=== PATIENT | female | born 1945 | race American Indian/Alaskan Native ===

== ENCOUNTER 2017-01-15 08:05 | Inpatient (IN) | payer MEDICARE ==
[2017-01-15] MEDS ORDERED: LASIX IV ONE (08:50)
[2017-01-15] MEDS ORDERED: LOPRESSOR IV ONE ×3 (08:53→15:05)
--- NOTE | 2017-01-15 08:58 | Emergency Department Report ---
ED Shortness of Breath HPI - General Chief Complaint: Dyspnea/Respdistress Stated Complaint: IBETH Time Seen by Provider: 01/15/17 08:42 Source: patient, EMS Mode of arrival: Stretcher Limitations: Physical Limitation - History of Present Illness Initial Comments: PATIENT BROUGHT BY EMS AFTER SHE START TO HAVE SOB, PALPITATION AND ON AND OFF CHEST PAIN. PATIENT STOPPED TAKING HER METOPROLOL YESTERDAY BECAUSE OF DIARRHEA. SHE HAD H/O TACHYCARDIA. MD Complaint: shortness of breath, chest pain -: Gradual, Last night Severity: moderate Pain Scale: 5 Consistency: intermittent Improves With: oxygen, rest Known History Of: congestive heart failure Associated Symptoms: chest pain, lower abdominal swelling, palpitations - Related Data Home Medications Medication Instructions Recorded Confirmed Last Taken Ascorbic Acid [Vitamin C] 500 mg PO DAILY 12/01/15 01/15/17 01/18/16 Mv, Min #36/Iron,Carbonyl/FA 1 mg PO DAILY 12/01/15 01/15/17 01/18/16 [Geritol Complete Tablet] [place]-3 Fatty Acids [Fish Oil] 1,200 mg PO DAILY 12/01/15 01/15/17 01/18/16 Potassium Chloride 40 meq PO QDAY 01/19/16 01/15/17 01/18/16 Ranitidine HCl [Acid Caddy/Caddie Supervisor] 150 mg PO BID 01/19/16 01/15/17 01/18/16 Valsartan [Diovan] 80 mg PO DAILY 01/19/16 01/15/17 01/18/16 Furosemide [Lasix TAB] 80 mg PO QDAY 01/15/17 01/15/17 Unknown Furosemide [Lasix] 20 mg PO QDAY 01/15/17 01/15/17 Unknown Previous Rx's Medication Instructions Recorded Last Taken Type Furosemide [Lasix TAB] 40 mg PO 0600,1800 #60 tablet 01/26/16 Unknown Rx Spironolactone [Aldactone] 25 mg PO QDAY #30 tablet 01/26/16 Unknown Rx Allergies Allergy/AdvReac Type Severity Reaction Status Date / Time Penicillins Allergy Swelling Verified 01/22/16 12:36 ED Review of Systems ROS: Stated complaint: IBETH Other details as noted in HPI Comment: All other systems reviewed and negative Constitutional: denies: fever Respiratory: cough, orthopnea, shortness of breath, SOB at rest. denies: SOB with exertion, stridor, wheezing Cardiovascular: chest pain, palpitations, dyspnea on exertion Gastrointestinal: diarrhea. denies: abdominal pain, nausea, vomiting Genitourinary: denies: urgency Neurological: denies: headache, numbness, confusion, vertigo ED Past Medical Hx - Past Medical History Previous Medical History?: Yes Hx Hypertension: Yes Hx Congestive Heart Failure: Yes Hx Diabetes: Yes Hx Deep Vein Thrombosis: Yes Hx Pulmonary Embolism: Yes Hx Arthritis: Yes Hx Asthma: Yes - Social History Smoking Status: Never Smoker Substance Use Type: None - Medications Home Medications: Home Medications Medication Instructions Recorded Confirmed Last Taken Type Ascorbic Acid [Vitamin C] 500 mg PO DAILY 12/01/15 01/15/17 01/18/16 History Mv, Min #36/Iron,Carbonyl/FA 1 mg PO DAILY 12/01/15 01/15/17 01/18/16 History [Geritol Complete Tablet] [place]-3 Fatty Acids [Fish Oil] 1,200 mg PO DAILY 12/01/15 01/15/17 01/18/16 History Potassium Chloride 40 meq PO QDAY 01/19/16 01/15/17 01/18/16 History Ranitidine HCl [Acid Caddy/Caddie Supervisor] 150 mg PO BID 01/19/16 01/15/17 01/18/16 History Valsartan [Diovan] 80 mg PO DAILY 01/19/16 01/15/17 01/18/16 History Furosemide [Lasix TAB] 40 mg PO 0600,1800 #60 tablet 01/26/16 01/15/17 Unknown Rx Spironolactone [Aldactone] 25 mg PO QDAY #30 tablet 01/26/16 01/15/17 Unknown Rx Furosemide [Lasix TAB] 80 mg PO QDAY 01/15/17 01/15/17 Unknown History Furosemide [Lasix] 20 mg PO QDAY 01/15/17 01/15/17 Unknown History ED Physical Exam - General Limitations: Physical Limitation General appearance: alert, in no apparent distress - Head Head exam: Present: normocephalic - Eye Eye exam: Present: normal appearance - Neck Neck exam: Present: normal inspection. Absent: tenderness, meningismus, lymphadenopathy - Respiratory Respiratory exam: Present: decreased breath sounds - Cardiovascular Cardiovascular Exam: Present: tachycardia - GI/Abdominal GI/Abdominal exam: Present: soft. Absent: tenderness, guarding - Extremities Exam Extremities exam: Present: pedal edema - Back Exam Back exam: Present: normal inspection - Neurological Exam Neurological exam: Present: alert, oriented X3, CN II-XII intact. Absent: motor sensory deficit - Skin Skin exam: Present: warm, dry ED Course Vital Signs 01/15/17 01/15/17 08:42 08:45 Temperature 98.6 F Pulse Rate 140 H Respiratory 20 Rate O2 Sat by Pulse 100 Oximetry ED Medical Decision Making - Lab Data Result diagrams: 01/15/17 09:03 01/15/17 09:03 - EKG Data -: EKG Interpreted by Me Rate: tachycardia - Radiology Data Radiology results: report reviewed - Medical Decision Making PATIENT WILL BE ADMITTED TO THE HOSPITALS. DISCUSS WITH DR CARROLL CARDIOLOGY AND ADVISED TO ADMIT TO THE HOSPITAL AND SHE WILL FOLLOW-UP. DISCUSS WITH DR MATOS FOR ADMISSION, HE ACCEPTED . Critical care attestation.: If time is entered above; I have spent that time in minutes in the direct care of this critically ill patient, excluding procedure time. ED Disposition Clinical Impression: Acute exacerbation of CHF (congestive heart failure) Disposition: OP ADMIT IP TO THIS HOSP Is pt being admited?: Yes Does the pt Need Aspirin: Yes Condition: Stable Referrals: PRIMARY CARE, [Referring] - 3-5 Days
--- NOTE | 2017-01-15 09:19 | XRay Report ---
Single view chest: Compared to 01/19/16. History: Dyspnea. Findings: Marked cardiomegaly with trachea midline and pulmonary venous congestion bilaterally been no growth of the right side. Suspected bilateral pleural effusion. Impression: Cardiomegaly with pulmonary venous congestion being more pronounced compared to previous study. Probable CHF.
[2017-01-15 09:37] LABS: Basophils % (Auto) 0.8 % (0.0-1.8); Hematocrit 43.5 % (30.3-42.9); Hemoglobin 14.4 gm/dl (10.1-14.3); Mean Corpuscular HGB Conc 33 % (30-34); Mean Corpuscular Hemoglobin 29 pg (28-32); Mean Corpuscular Volume 86 fl (79-97); Platelet Count 169 K/mm3 (140-440); Red Blood Count 5.04 M/mm3 (3.65-5.03); Red Cell Distribution Width 18.8 % (13.2-15.2); White Blood Count 6.1 K/mm3 (4.5-11.0)
[2017-01-15 09:46] LABS: Albumin 3.8 g/dL (3.9-5); Albumin/Globulin Ratio 1.1 %; BUN/Creatinine Ratio 26.92; Bilirubin,Total 1.3 mg/dL (0.1-1.2); Calcium 9.8 mg/dL (8.4-10.2); Potassium 5.1 mmol/L (3.6-5.0); Total Protein 7.4 g/dL (6.3-8.2)
[2017-01-15 10:40] LABS: Bilirubin,Urine NEG (Negative); Blood,Urine NEG (Negative); Ketones,Urine NEG (Negative); Leukocyte Esterase,Urine NEG (Negative); Nitrite,Urine NEG (Negative); Urobilinogen,Urine < 2.0 mg/dL (<2.0)
[2017-01-15 11:03] LABS: RBC,Urine < 1.0 /HPF (0.0-6.0); WBC,Urine < 1.0 /HPF (0.0-6.0)
[2017-01-15] MEDS: COREG PO SCH (21:52)
--- NOTE | 2017-01-15 22:26 | History and Physical Report ---
History of Present Illness Date of examination: 01/15/17 Date of admission: 01/15/17 11:28 Chief complaint: Increasing SOB Diarrhea assoc with metoprolol History of present illness: SYCUAN:Patient is a 71 y/o female with hx of HTN CHF comes in for increasing SOB and palpitations.Intermittent Chest Discomfort.Orthopnea and palpitations present.No fever /chills.No recent travel - Past Medical History Previous Medical History?: Yes Hx Hypertension: Yes Hx Congestive Heart Failure: Yes Hx Diabetes: Yes Hx Deep Vein Thrombosis: Yes Hx Pulmonary Embolism: Yes Hx Arthritis: Yes Hx Asthma: Yes - Social History Smoking Status: Never Smoker Substance Use Type: None - Medications Home Medications: Home Medications Medication Instructions Recorded Confirmed Last Taken Type Ascorbic Acid [Vitamin C] 500 mg PO DAILY 12/01/15 01/15/17 01/18/16 History Mv, Min #36/Iron,Carbonyl/FA 1 mg PO DAILY 12/01/15 01/15/17 01/18/16 History [Geritol Complete Tablet] [place]-3 Fatty Acids [Fish Oil] 1,200 mg PO DAILY 12/01/15 01/15/17 01/18/16 History Potassium Chloride 40 meq PO QDAY 01/19/16 01/15/17 01/18/16 History Ranitidine HCl [Acid Firer Kiln] 150 mg PO BID 01/19/16 01/15/17 01/18/16 History Valsartan [Diovan] 80 mg PO DAILY 01/19/16 01/15/17 01/18/16 History Furosemide [Lasix TAB] 40 mg PO 0600,1800 #60 tablet 01/26/16 01/15/17 Unknown Rx Spironolactone [Aldactone] 25 mg PO QDAY #30 tablet 01/26/16 01/15/17 Unknown Rx Furosemide [Lasix TAB] 80 mg PO QDAY 01/15/17 01/15/17 Unknown History Furosemide [Lasix] 20 mg PO QDAY 01/15/17 01/15/17 Unknown History ROS: Stated complaint: IBETH Other details as noted in HPI Comment: All other systems reviewed and negative Constitutional: denies: fever Respiratory: cough, orthopnea, shortness of breath, SOB at rest. denies: SOB with exertion, stridor, wheezing Cardiovascular: chest pain, palpitations, dyspnea on exertion Gastrointestinal: diarrhea. denies: abdominal pain, nausea, vomiting Genitourinary: denies: urgency Neurological: denies: headache, numbness, confusion, vertigo Medications and Allergies Allergies Allergy/AdvReac Type Severity Reaction Status Date / Time Penicillins Allergy Swelling Verified 01/22/16 12:36 Home Medications Medication Instructions Recorded Confirmed Last Taken Type Ascorbic Acid [Vitamin C] 500 mg PO DAILY 12/01/15 01/15/17 01/18/16 History Mv, Min #36/Iron,Carbonyl/FA 1 mg PO DAILY 12/01/15 01/15/17 01/18/16 History [Geritol Complete Tablet] [place]-3 Fatty Acids [Fish Oil] 1,200 mg PO DAILY 12/01/15 01/15/17 01/18/16 History Potassium Chloride 40 meq PO QDAY 01/19/16 01/15/17 01/18/16 History Ranitidine HCl [Acid Firer Kiln] 150 mg PO BID 01/19/16 01/15/17 01/18/16 History Valsartan [Diovan] 80 mg PO DAILY 01/19/16 01/15/17 01/18/16 History Furosemide [Lasix TAB] 40 mg PO 0600,1800 #60 tablet 01/26/16 01/15/17 Unknown Rx Spironolactone [Aldactone] 25 mg PO QDAY #30 tablet 01/26/16 01/15/17 Unknown Rx Furosemide [Lasix TAB] 80 mg PO QDAY 01/15/17 01/15/17 Unknown History Furosemide [Lasix] 20 mg PO QDAY 01/15/17 01/15/17 Unknown History Active Meds: Active Medications Carvedilol (Coreg) 25 mg PO BID ALANNA Last Admin: 01/15/17 21:52 Dose: 25 mg Exam - Physical Exam Narrative exam: Sob while at rest-uncomfortable - Constitutional Vitals: Temp Pulse Resp BP Pulse Ox 0 F L 104 H 20 92/64 98 01/15/17 20:58 01/15/17 21:52 01/15/17 20:58 01/15/17 21:52 01/15/17 20:58 General appearance: Present: no acute distress, well-nourished - EENT Eyes: Present: PERRL ENT: hearing intact, clear oral mucosa - Neck Neck: Present: supple, normal ROM - Respiratory Respiratory effort: normal Respiratory: bilateral: CTA, rales, rhonchi - Cardiovascular Rhythm: regular Heart Sounds: Present: S1 & S2. Absent: rub, click - Extremities Extremities: no ischemia, pulses symmetrical, No edema Extremity abnormal: edema Peripheral Pulses: within normal limits - Abdominal General gastrointestinal: Present: soft, non-tender, non-distended, normal bowel sounds Female genitourinary: Present: normal - Rectal Rectal Exam: deferred - Integumentary Integumentary: Present: clear, warm, dry - Musculoskeletal Musculoskeletal: gait normal, strength equal bilaterally - Psychiatric Psychiatric: appropriate mood/affect, intact judgment & insight - Neurologic Neurologic: CNII-XII intact, moves all extremities Results - Labs CBC & Chem 7: 01/16/17 08:56 01/16/17 08:56 Labs: Laboratory Last Values WBC 6.1 K/mm3 (4.5-11.0) 01/15/17 09:03 RBC 5.04 M/mm3 (3.65-5.03) H 01/15/17 09:03 Hgb 14.4 gm/dl (10.1-14.3) H 01/15/17 09:03 Hct 43.5 % (30.3-42.9) H 01/15/17 09:03 MCV 86 fl (79-97) 01/15/17 09:03 MCH 29 pg (28-32) 01/15/17 09:03 MCHC 33 % (30-34) 01/15/17 09:03 RDW 18.8 % (13.2-15.2) H 01/15/17 09:03 Plt Count 169 K/mm3 (140-440) 01/15/17 09:03 Lymph % (Auto) 7.3 % (13.4-35.0) L 01/15/17 09:03 [place] % (Auto) 14.8 % (0.0-7.3) H 01/15/17 09:03 Eos % (Auto) 4.0 % (0.0-4.3) 01/15/17 09:03 Baso % (Auto) 0.8 % (0.0-1.8) 01/15/17 09:03 Lymph # 0.4 K/mm3 (1.2-5.4) L 01/15/17 09:03 [place] # 0.9 K/mm3 (0.0-0.8) H 01/15/17 09:03 Eos # 0.2 K/mm3 (0.0-0.4) 01/15/17 09:03 Baso # 0.1 K/mm3 (0.0-0.1) 01/15/17 09:03 Seg Neutrophils % 73.1 % (40.0-70.0) H 01/15/17 09:03 Seg Neutrophils # 4.5 K/mm3 (1.8-7.7) 01/15/17 09:03 Sodium 134 mmol/L (137-145) L 01/15/17 09:03 Potassium 5.1 mmol/L (3.6-5.0) H 01/15/17 09:03 Chloride 95.0 mmol/L (98-107) L 01/15/17 09:03 Carbon Dioxide 24 mmol/L (22-30) 01/15/17 09:03 Anion Gap 20 mmol/L 01/15/17 09:03 BUN 35 mg/dL (7-17) H 01/15/17 09:03 Creatinine 1.3 mg/dL (0.7-1.2) H 01/15/17 09:03 Estimated GFR 49 ml/min 01/15/17 09:03 BUN/Creatinine Ratio 26.92 % 01/15/17 09:03 Glucose 166 mg/dL (65-100) H 01/15/17 09:03 POC Glucose 135 (70-105) H 01/15/17 22:06 Calcium 9.8 mg/dL (8.4-10.2) 01/15/17 09:03 Total Bilirubin 1.30 mg/dL (0.1-1.2) H 01/15/17 09:03 AST 22 units/L (5-40) 01/15/17 09:03 ALT 13 units/L (7-56) 01/15/17 09:03 Alkaline Phosphatase 91 units/L (35-129) 01/15/17 09:03 Troponin T 0.019 ng/mL (0.00-0.029) 01/15/17 09:03 NT-Pro-B Natriuret Pep 8400 pg/mL (0-900) H 01/15/17 09:03 Total Protein 7.4 g/dL (6.3-8.2) 01/15/17 09:03 Albumin 3.8 g/dL (3.9-5) L 01/15/17 09:03 Albumin/Globulin Ratio 1.1 % 01/15/17 09:03 Urine Color Yellow (Yellow) 01/15/17 10:16 Urine Turbidity Clear (Clear) 01/15/17 10:16 Urine pH 5.0 (5.0-7.0) 01/15/17 10:16 Ur Specific [place] 1.011 (1.003-1.030) 01/15/17 10:16 Urine Protein 30 mg/dl mg/dL (Negative) 01/15/17 10:16 Urine Glucose (UA) Neg mg/dL (Negative) 01/15/17 10:16 Urine Ketones Neg mg/dL (Negative) 01/15/17 10:16 Urine Blood Neg (Negative) 01/15/17 10:16 Urine Nitrite Neg (Negative) 01/15/17 10:16 Urine Bilirubin Neg (Negative) 01/15/17 10:16 Urine Urobilinogen < 2.0 mg/dL (<2.0) 01/15/17 10:16 Ur Leukocyte Esterase Neg (Negative) 01/15/17 10:16 Urine WBC (Auto) < 1.0 /HPF (0.0-6.0) 01/15/17 10:16 Urine RBC (Auto) < 1.0 /HPF (0.0-6.0) 01/15/17 10:16 U Epithel Cells (Auto) 7.0 /HPF (0-13.0) 01/15/17 10:16 Amorphous Crystals 2+ 01/15/17 10:16 - Imaging and Cardiology EKG: report reviewed (Tachycardia of 128/min Junctional rhythm) Chest x-ray: report reviewed (Pulmonary venous congestion) Assessment and Plan Advance Directives: Yes (Full code ) VTE prophylaxis?: Chemical Plan of care discussed with patient/family: Yes - Patient Problems (1) Acute exacerbation of CHF (congestive heart failure) Current Visit: Yes Status: Acute Qualifiers: Congestive heart failure type: combined Qualified Code(s): I50.43 - Acute on chronic combined systolic (congestive) and diastolic (congestive) heart failure Plan to address problem: IV Lasix 40 mg q12.ECHO ordered.Cardiology consulted (2) HTN (hypertension) Current Visit: Yes Status: Chronic Qualifiers: Hypertension type: essential hypertension Qualified Code(s): I10 - Essential (primary) hypertension Plan to address problem: Cont Antihypertensives (3) Junctional cardiac arrhythmia Current Visit: Yes Status: Acute Plan to address problem: cont beta blockers in form of carvedilol and defer to cardiolgy for further management (4) GERD (gastroesophageal reflux disease) Current Visit: Yes Status: Chronic Qualifiers: Esophagitis presence: without esophagitis Qualified Code(s): K21.9 - Gastro -esophageal reflux disease without esophagitis Plan to address problem: Cont Ranitidine (5) DVT prophylaxis Current Visit: Yes Status: Acute Plan to address problem: Patient on Lovenox 40 mg sq qd
[2017-01-15] MEDS ORDERED: DULCOLAX PR PRN (22:27)
[2017-01-15] MEDS ORDERED: MILK OF MAGNESIA PO PRN (22:27)
[2017-01-15] MEDS ORDERED: ZOFRAN IV PRN (22:27)
[2017-01-15] MEDS ORDERED: AMBIEN PO PRN (22:27)
[2017-01-15] MEDS ORDERED: SODIUM CHLORIDE FLUSH SYRINGE 10 ML IV PRN (22:31)
[2017-01-15 23:53] LABS: Hematocrit 41.1 % (30.3-42.9); Hemoglobin 13.4 gm/dl (10.1-14.3); Mean Corpuscular HGB Conc 33 % (30-34); Mean Corpuscular Hemoglobin 29 pg (28-32); Mean Corpuscular Volume 88 fl (79-97); Red Blood Count 4.68 M/mm3 (3.65-5.03); Red Cell Distribution Width 18.6 % (13.2-15.2); White Blood Count 5.7 K/mm3 (4.5-11.0)
[2017-01-16 00:07] LABS: Calcium 9.7 mg/dL (8.4-10.2); Chloride 95.5 mmol/L (98-107); Potassium 5.1 mmol/L (3.6-5.0)
[2017-01-16 00:34] LABS: Basophils % (Manual) 0 % (0.0-1.8); Blastocytes % (Manual) 0 %
[2017-01-16 00:35] LABS: Anisocytosis 1+; Elliptocytes 1+
[2017-01-16 00:36] LABS: Diff Status Complete; Platelet Clumps 1+
[2017-01-16 01:03] LABS: Platelet Count 114 K/mm3 (140-440)
--- NOTE | 2017-01-16 01:43 | Admit Criteria Form ---
Admission Criteria Documentation: HEART FAILURE: COMMON COMPLICATIONS Clinical Indications for Inpatient Care ([place]/check or initial the applicable condition/criteria): Ongoing inpatient care may be indicated for heart failure with 1 or more of the following (1)(2)(3)(4)(5)(6)(7)(8): [ ]I. New-onset heart failure [ ]II. Acute cardiac ischemia causing or associated with failure [ ]III. Ongoing need for care for primary condition requiring frequent therapy adjustments because of changes in cardiac function (eg, drug dosage changes for drugs that are renally metabolized) [X ]IV. Complications of heart failure, including 1 or more of the following: [ ]a) Hemodynamic instability [ ]b) Pericardial effusion [ ]c) Symptomatic pleural effusion(16) [ ]d) Hypoxemia [ ]e) Tachypnea [ X]f) Dyspnea [ ]g) Syncope [ ]h) Altered mental status [ ]i) Acute renal insufficiency that is severe (reduction of more than 50% in estimated glomerular filtration rate from baseline) or progressive (reduction of more than 25% in estimated glomerular filtration rate from baseline, with creatinine continuing to rise) [ ]j) Debilitating anasarca (eg tissue breakdown with infection, inability to void due to edema)(E) (17) [ ]k) Clinically significant metabolic abnormalities due to heart failure (e.g., new-onset metabolic acidosis) Extended stay may be needed until ALL of the following are present(1)(3)(18)(41) (55): [ ]a) Hemodynamic stability [ ]b) Stable and effective diuretic regimen established (or patient on stable dialysis regimen if in chronic renal failure) [ ]c) Volume status acceptable on oral medication [ ]d) Breathing comfortably at rest [ ]e) Saturation of arterial oxygen greater than 90% or at acceptable baseline [ ]f) Pulmonary edema absent or improved [ ]g) Peripheral or sacral edema absent or improved [ ]h) Renal function stable and manageable at a lower level of care [ ]i) Complications (e.g., pleural effusion) resolved or manageable at a lower level of care [ ]j) Patient or caregiver has received written discharge instructions or educational material addressing activity level, diet, discharge medications, follow-up appointment, weight monitoring, and what to do if symptoms worsen. (56)(57)(58) The original [facility] [employer] formerly [employer] content created by Qian Suarez has been revised. The portions of the content which have been revised are identified through the use of italic text or in bold, and Qian Suarez has neither reviewed nor approved the modified material.All other unmodified content is copyright [facility] [employer]. Please see references footnoted in the original [facility] edition 2017 Admission Criteria Met: Yes
[2017-01-16] MEDS: LASIX IV SCH ×2 (06:50→18:59)
[2017-01-16 09:38] LABS: Basophils % (Auto) 1.9 % (0.0-1.8); Eosinophils % (Auto) 5.8 % (0.0-4.3); Hematocrit 40.9 % (30.3-42.9); Hemoglobin 13.2 gm/dl (10.1-14.3); Mean Corpuscular HGB Conc 32 % (30-34); Mean Corpuscular Hemoglobin 29 pg (28-32); Mean Corpuscular Volume 88 fl (79-97); Platelet Count 156 K/mm3 (140-440); Red Blood Count 4.63 M/mm3 (3.65-5.03); Red Cell Distribution Width 19.2 % (13.2-15.2); White Blood Count 4.7 K/mm3 (4.5-11.0)
[2017-01-16 10:06] LABS: Albumin 3.1 g/dL (3.9-5); BUN/Creatinine Ratio 27.69; Bilirubin,Total 1.4 mg/dL (0.1-1.2); Calcium 9.1 mg/dL (8.4-10.2); Chloride 95.1 mmol/L (98-107); Total Protein 6.2 g/dL (6.3-8.2)
--- NOTE | 2017-01-16 10:47 | Consultation ---
History of Present Illness Consult date: 01/16/17 Requesting physician: VITO MATOS Consult reason: shortness of breath History of present illness: This is a 71-year-old female with multiple medical problems including morbid obesity, the patient is wheelchair-bound secondary to orthopedic issues, hypertension, congestive heart failure, nonobstructive coronary artery disease, and hyperlipidemia who presented to [facility] emergency department complaining of shortness of breath and a rapid heartbeat. In the emergency department a 12-lead EKG appeared to be a accelerated junctional rhythm with a heart rate of 128 bpm. Of note the patient had recently had her metoprolol discontinued secondary to an allergic reaction. In the emergency department the patient was noted to have a potassium of 5.1 blood glucose of 166 and a total bilirubin of 1.4. A chest x-ray was consistent with pulmonary vascular congestion secondary to congestive heart failure. She had a proBNP of 8400. Past History Past Medical History: arrhythmia, CAD, heart failure, hypertension, hyperlipidemia, renal failure Past Surgical History: Other (osteoarthritis knees) Social history: Lives alone. denies: smoking, alcohol abuse, IV drug use Family history: diabetes, hypertension Medications and Allergies Allergies Allergy/AdvReac Type Severity Reaction Status Date / Time Penicillins Allergy Swelling Verified 01/22/16 12:36 Home Medications Medication Instructions Recorded Confirmed Last Taken Type Ascorbic Acid [Vitamin C] 500 mg PO DAILY 12/01/15 01/15/17 01/18/16 History Mv, Min #36/Iron,Carbonyl/FA 1 mg PO DAILY 12/01/15 01/15/17 01/18/16 History [Geritol Complete Tablet] [place]-3 Fatty Acids [Fish Oil] 1,200 mg PO DAILY 12/01/15 01/15/17 01/18/16 History Potassium Chloride 40 meq PO QDAY 01/19/16 01/15/17 01/18/16 History Ranitidine HCl [Acid Furniture Reproducer] 150 mg PO BID 01/19/16 01/15/17 01/18/16 History Valsartan [Diovan] 80 mg PO DAILY 01/19/16 01/15/17 01/18/16 History Furosemide [Lasix TAB] 40 mg PO 0600,1800 #60 tablet 01/26/16 01/15/17 Unknown Rx Spironolactone [Aldactone] 25 mg PO QDAY #30 tablet 01/26/16 01/15/17 Unknown Rx Furosemide [Lasix TAB] 80 mg PO QDAY 01/15/17 01/15/17 Unknown History Furosemide [Lasix] 20 mg PO QDAY 01/15/17 01/15/17 Unknown History Active Meds: Active Medications Acetaminophen (Tylenol) 650 mg PO Q4H PRN PRN Reason: Pain MILD(1-3)/Fever >100.5/LIMA Bisacodyl (Dulcolax) 10 mg MO QDAY PRN PRN Reason: Constipation unrelieved by MOM Carvedilol (Coreg) 25 mg PO BID [facility] Last Admin: 01/15/17 21:52 Dose: 25 mg Famotidine (Pepcid) 20 mg PO BID [facility] Furosemide (Lasix) 40 mg IV 0600,1800 [facility] Last Admin: 01/16/17 06:50 Dose: 40 mg Hydromorphone HCl (Dilaudid) 0.5 mg IV Q3H PRN PRN Reason: Pain , Severe (7-10) Magnesium Hydroxide (Milk Of Magnesia) 30 ml PO Q4H PRN PRN Reason: Constipation Ondansetron HCl (Zofran) 4 mg IV Q8H PRN PRN Reason: N/V unrelieved by Reglan Oxycodone/Acetaminophen (Percocet 5/325) 1 tab PO Q6H PRN PRN Reason: Pain, Moderate (4-6) Simvastatin (Zocor) 10 mg PO QHS [facility] Sodium Chloride (Sodium Chloride Flush Syringe 10 Ml) 10 ml IV PRN PRN PRN Reason: LINE FLUSH Spironolactone (Aldactone) 25 mg PO QDAY [facility] Valsartan (Diovan) 80 mg PO DAILY [facility] Zolpidem Tartrate (Ambien) 5 mg PO QHS PRN PRN Reason: Insomnia Review of Systems Constitutional: weight gain, no fever, no chills, no sweats Ears, nose, mouth and throat: no ear pain, no ear discharge, no tinnitis Breasts: deferred Cardiovascular: orthopnea, palpitations, rapid/irregular heart beat, edema, shortness of breath, no chest pain, no syncope Respiratory: dyspnea on exertion, no cough, no hemoptysis Gastrointestinal: no abdominal pain, no nausea, no vomiting Genitourinary Female: no dysuria, no hematuria Rectal: no pain, no incontinence Musculoskeletal: no neck stiffness, no neck pain Integumentary: no rash, no pruritis Neurological: no paralysis, no headaches Psychiatric: no anxiety, no sleep disturbances Endocrine: no cold intolerance, no heat intolerance Hematologic/Lymphatic: no easy bruising, no easy bleeding Physical Examination Vital Signs Temp Pulse 98.6 F 140 H 01/15/17 08:42 01/15/17 08:42 General appearance: no acute distress HEENT: Positive: PERRL, EOMI Neck: Positive: neck supple, trachea midline Cardiac: Positive: Regular Rhythm, Tachycardia Lungs: Positive: Decreased Breath Sounds, Rales, Oxygen Neuro: Positive: Grossly Intact Abdomen: Positive: Unremarkable, Soft, Active Bowel Sounds Female genitourinary: deferred Skin: Negative: Rash, Suspicious Lesions Extremities: Present: +1 Edema, warm, Other (chronic venous stasis changes) Results 01/16/17 08:56 01/16/17 08:56 Cardiac Enzymes 01/16/17 Range/Units 08:56 AST 19 (5-40) units/L CBC 01/15/17 01/16/17 Range/Units 23:40 08:56 WBC 5.7 4.7 (4.5-11.0) K/mm3 RBC 4.68 4.63 (3.65-5.03) M/mm3 Hgb 13.4 13.2 (10.1-14.3) gm/dl Hct 41.1 40.9 (30.3-42.9) % Plt Count 114 L 156 (140-440) K/mm3 Lymph # Insurance Claims Specialist 0.3 L [place] # Insurance Claims Specialist 0.6 Eos # Insurance Claims Specialist 0.3 Baso # Insurance Claims Specialist 0.1 Comprehensive Metabolic Panel 01/15/17 01/16/17 Range/Units 23:40 08:56 Sodium 132 L 132 L (137-145) mmol/L Potassium 5.1 H 5.0 (3.6-5.0) mmol/L Chloride 95.5 L 95.1 L (98-107) mmol/L Carbon Dioxide 20 L 19 L (22-30) mmol/L BUN 36 H 36 H (7-17) mg/dL Creatinine 1.2 1.3 H (0.7-1.2) mg/dL Glucose 128 H 129 H (65-100) mg/dL Calcium 9.7 9.1 (8.4-10.2) mg/dL AST 19 (5-40) units/L ALT 11 (7-56) units/L Alkaline Phosphatase 68 (35-129) units/L Total Protein 6.2 L (6.3-8.2) g/dL Albumin 3.1 L (3.9-5) g/dL - Imaging and Cardiology Stress echo: report reviewed (Cardiac PET 11/11: very small mild anterior, anteroapical mild reversible defect. EF stress 58%) Echo: report reviewed (ECHO 11/16: TDS, EF cannot be determined due to poor image quality, ) Cardiac cath: report reviewed ([facility] 06/07: LM: patent, LCX: diffuse disease, LAD: diffuse disease, RCA: diffuse disease, mid 40%) EKG interpretations - Telemetry EKG Rhythm: Accelerated Junctional Assessment and Plan 71 F Acute on chronic systolic heart failure strict I/O continue IV lasix 40 BID continue carvedilol 25 bid/diovan 80 QD/spironolactone 25 QD repeat ECHO with contrast Hyperkalemia monitor Hyponatremia monitor Accelerated Junctional rhythm 2/2 recent beta steven discontinuation continue carvedilol Cardiomyopathy repeat ECHO to evaluate LV function Diabetes Hypertension Hyperlipidemia History of Breast CA Obesity
[2017-01-16] MEDS: PEPCID PO SCH ×2 (11:08→22:01)
[2017-01-16] MEDS: DIOVAN PO SCH (11:08)
[2017-01-16] MEDS: COREG PO SCH ×2 (11:08→22:15)
[2017-01-16] MEDS: ALDACTONE PO SCH (11:09)
--- NOTE | 2017-01-16 11:26 | Progress Note ---
Assessment and Plan - Patient Problems (1) Acute exacerbation of CHF (congestive heart failure) Current Visit: Yes Status: Acute Qualifiers: Congestive heart failure type: combined Qualified Code(s): I50.43 - Acute on chronic combined systolic (congestive) and diastolic (congestive) heart failure Plan to address problem: IV Lasix 40 mg q12.ECHO ordered.Cardiology consulted (2) HTN (hypertension) Current Visit: Yes Status: Chronic Qualifiers: Hypertension type: essential hypertension Qualified Code(s): I10 - Essential (primary) hypertension Plan to address problem: Cont Antihypertensives (3) Junctional cardiac arrhythmia Current Visit: Yes Status: Acute Plan to address problem: cont beta blockers in form of carvedilol and defer to cardiolgy for further management (4) GERD (gastroesophageal reflux disease) Current Visit: Yes Status: Chronic Qualifiers: Esophagitis presence: without esophagitis Qualified Code(s): K21.9 - Gastro -esophageal reflux disease without esophagitis Plan to address problem: Cont Ranitidine (5) DVT prophylaxis Current Visit: Yes Status: Acute Plan to address problem: Patient on Lovenox 40 mg sq qd Subjective Date of service: 01/16/17 Principal diagnosis: Chf exacerbation Interval history: Interval improvement present Objective - Exam Narrative Exam: Sob while at rest-uncomfortable - Constitutional Vitals: Vital Signs - 12hr 01/16/17 01/16/17 01/16/17 00:16 00:42 04:38 Temperature 0 F L 97.4 F L Pulse Rate 90 Pulse Rate [ 0 L Apical] Pulse Rate [ 96 H Left Radial] Pulse Rate [ 101 H 0 L Right Radial] Respiratory 20 20 Rate Blood Pressure 88/60 [Left Radial Artery] Blood Pressure 106/74 0/0 [Right Radial Artery] O2 Sat by Pulse 100 97 Oximetry 01/16/17 08:54 Temperature 97.7 F Pulse Rate Pulse Rate [ 103 H Apical] Pulse Rate [ 103 H Left Radial] Pulse Rate [ 103 H Right Radial] Respiratory 20 Rate Blood Pressure 97/68 [Left Radial Artery] Blood Pressure 97/68 [Right Radial Artery] O2 Sat by Pulse 98 Oximetry General appearance: Present: no acute distress, well-nourished - EENT Eyes: PERRL, EOM intact ENT: hearing intact, clear oral mucosa Ears: bilateral: normal - Neck Neck: supple, normal ROM - Respiratory Respiratory effort: normal Respiratory: bilateral: CTA - Breasts Breasts: normal - Cardiovascular Rhythm: regular Heart Sounds: Present: S1 & S2. Absent: gallop, rub Extremities: pulses intact, No edema, normal color, Full ROM - Gastrointestinal General gastrointestinal: Present: soft, non-tender, non-distended, normal bowel sounds - Genitourinary Female genitourinary: normal - Integumentary Integumentary: clear, warm, dry - Musculoskeletal Musculoskeletal: 1, strength equal bilaterally - Neurologic Neurologic: moves all extremities - Psychiatric Psychiatric: memory intact, appropriate mood/affect, intact judgment & insight - Labs CBC & Chem 7: 01/17/17 05:29 01/18/17 05:07 Labs: Abnormal lab results 01/15/17 01/15/17 01/15/17 Range/Units 17:45 22:06 23:40 RDW 18.6 H (13.2-15.2) % Plt Count 114 L (140-440) K/mm3 Lymph % (Auto) (13.4-35.0) % [place] % (Auto) (0.0-7.3) % Eos % (Auto) (0.0-4.3) % Baso % (Auto) (0.0-1.8) % Lymph # (1.2-5.4) K/mm3 Seg Neutrophils % (40.0-70.0) % Seg Neuts % (Manual) 82.0 H (40.0-70.0) % Lymphocytes % (Manual) 7.0 L (13.4-35.0) % Lymphocytes # (Manual) 0.4 L (1.2-5.4) K/mm3 Sodium (137-145) mmol/L Potassium (3.6-5.0) mmol/L Chloride (98-107) mmol/L Carbon Dioxide (22-30) mmol/L BUN (7-17) mg/dL Creatinine (0.7-1.2) mg/dL Glucose (65-100) mg/dL POC Glucose 147 H 135 H (70-105) Total Bilirubin (0.1-1.2) mg/dL Total Protein (6.3-8.2) g/dL Albumin (3.9-5) g/dL 01/15/17 01/16/17 01/16/17 Range/Units 23:40 03:44 08:49 RDW (13.2-15.2) % Plt Count (140-440) K/mm3 Lymph % (Auto) (13.4-35.0) % [place] % (Auto) (0.0-7.3) % Eos % (Auto) (0.0-4.3) % Baso % (Auto) (0.0-1.8) % Lymph # (1.2-5.4) K/mm3 Seg Neutrophils % (40.0-70.0) % Seg Neuts % (Manual) (40.0-70.0) % Lymphocytes % (Manual) (13.4-35.0) % Lymphocytes # (Manual) (1.2-5.4) K/mm3 Sodium 132 L (137-145) mmol/L Potassium 5.1 H (3.6-5.0) mmol/L Chloride 95.5 L (98-107) mmol/L Carbon Dioxide 20 L (22-30) mmol/L BUN 36 H (7-17) mg/dL Creatinine (0.7-1.2) mg/dL Glucose 128 H (65-100) mg/dL POC Glucose 117 H 126 H (70-105) Total Bilirubin (0.1-1.2) mg/dL Total Protein (6.3-8.2) g/dL Albumin (3.9-5) g/dL 01/16/17 01/16/17 Range/Units 08:56 08:56 RDW 19.2 H (13.2-15.2) % Plt Count (140-440) K/mm3 Lymph % (Auto) 6.6 L (13.4-35.0) % [place] % (Auto) 12.0 H (0.0-7.3) % Eos % (Auto) 5.8 H (0.0-4.3) % Baso % (Auto) 1.9 H (0.0-1.8) % Lymph # 0.3 L (1.2-5.4) K/mm3 Seg Neutrophils % 73.7 H (40.0-70.0) % Seg Neuts % (Manual) (40.0-70.0) % Lymphocytes % (Manual) (13.4-35.0) % Lymphocytes # (Manual) (1.2-5.4) K/mm3 Sodium 132 L (137-145) mmol/L Potassium (3.6-5.0) mmol/L Chloride 95.1 L (98-107) mmol/L Carbon Dioxide 19 L (22-30) mmol/L BUN 36 H (7-17) mg/dL Creatinine 1.3 H (0.7-1.2) mg/dL Glucose 129 H (65-100) mg/dL POC Glucose (70-105) Total Bilirubin 1.40 H (0.1-1.2) mg/dL Total Protein 6.2 L (6.3-8.2) g/dL Albumin 3.1 L (3.9-5) g/dL
[2017-01-16] MEDS: ZOCOR PO SCH (22:01)
[2017-01-17] MEDS: LASIX IV SCH ×2 (05:57→17:37)
[2017-01-17 06:05] LABS: Basophils % (Auto) 0.8 % (0.0-1.8); Eosinophils % (Auto) 2.4 % (0.0-4.3); Hematocrit 41.4 % (30.3-42.9); Hemoglobin 13.8 gm/dl (10.1-14.3); Mean Corpuscular HGB Conc 33 % (30-34); Mean Corpuscular Hemoglobin 29 pg (28-32); Mean Corpuscular Volume 87 fl (79-97); Platelet Count 162 K/mm3 (140-440); Red Blood Count 4.76 M/mm3 (3.65-5.03); Red Cell Distribution Width 19.2 % (13.2-15.2)
[2017-01-17 06:24] LABS: BUN/Creatinine Ratio 27.85; Chloride 94.8 mmol/L (98-107); Potassium 5.3 mmol/L (3.6-5.0)
[2017-01-17] MEDS: DIOVAN PO SCH (09:38)
[2017-01-17] MEDS: PEPCID PO SCH ×2 (09:38→22:07)
[2017-01-17] MEDS: COREG PO SCH ×2 (09:39→22:07)
[2017-01-17] MEDS: ALDACTONE PO SCH (09:39)
--- NOTE | 2017-01-17 10:46 | Progress Note ---
Assessment and Plan Acute on chronic systolic heart failure strict I/O continue IV lasix 40 BID continue carvedilol 25 bid/diovan 80 QD repeat ECHO with contrast Hyperkalemia d/c aldactone monitor Hyponatremia monitor Accelerated Junctional rhythm 2/2 recent beta steven discontinuation continue carvedilol initiate digoxin, 0.125mcg daily. Cardiomyopathy repeat ECHO to evaluate LV function Diabetes Hypertension Hyperlipidemia History of Breast CA Obesity The patient has been seen in conjunction with Dr. Cmapos who agrees with the assessment and plan of care. Subjective Date of service: 01/17/17 Principal diagnosis: Chf exacerbation Interval history: Pt resting in bed, c/o generalized weakness and SOB. Remains in junctional tachycardia on tele, HR 110s - 120s. BPs WNL. Objective Last Vital Signs Temp 97.7 F 01/17/17 08:30 Pulse 104 H 01/17/17 09:39 Resp 18 01/17/17 08:30 BP 119/64 01/17/17 09:39 Pulse Ox 100 01/17/17 08:30 - Physical Examination HEENT: Positive: PERRL, EOMI Neck: Positive: neck supple, trachea midline Cardiac: Positive: S1/S2, Tachycardia Lungs: Positive: Wheezes (expiratory) Neuro: Positive: Grossly Intact Abdomen: Positive: Unremarkable, Soft, Active Bowel Sounds Skin: Negative: Rash, Suspicious Lesions Extremities: Present: edema (trace BLE ), warm, Other (chronic venous stasis changes) - Labs and Meds CBC 01/17/17 Range/Units 05:29 WBC 6.0 (4.5-11.0) K/mm3 RBC 4.76 (3.65-5.03) M/mm3 Hgb 13.8 (10.1-14.3) gm/dl Hct 41.4 (30.3-42.9) % Plt Count 162 (140-440) K/mm3 Lymph # 0.4 L (1.2-5.4) K/mm3 [place] # 0.6 (0.0-0.8) K/mm3 Eos # 0.1 (0.0-0.4) K/mm3 Baso # 0.0 (0.0-0.1) K/mm3 Comprehensive Metabolic Panel 01/17/17 Range/Units 05:29 Sodium 131 L (137-145) mmol/L Potassium 5.3 H (3.6-5.0) mmol/L Chloride 94.8 L (98-107) mmol/L Carbon Dioxide 21 L (22-30) mmol/L BUN 39 H (7-17) mg/dL Creatinine 1.4 H (0.7-1.2) mg/dL Glucose 196 H (65-100) mg/dL Calcium 9.0 (8.4-10.2) mg/dL - Imaging and Cardiology EKG: report reviewed (Tachycardia of 128/min Junctional rhythm) Stress echo: report reviewed (Cardiac PET 11/11: very small mild anterior, anteroapical mild reversible defect. EF stress 58%) Echo: report reviewed (ECHO 11/16: TDS, EF cannot be determined due to poor image quality, ) Cardiac cath: report reviewed ([facility] 06/07: LM: patent, LCX: diffuse disease, LAD: diffuse disease, RCA: diffuse disease, mid 40%) - Telemetry EKG Rhythm: Paced (junctional tachycardia)
--- NOTE | 2017-01-17 15:20 | Progress Note ---
Assessment and Plan - Patient Problems (1) Acute exacerbation of CHF (congestive heart failure) Current Visit: Yes Status: Acute Qualifiers: Congestive heart failure type: combined Qualified Code(s): I50.43 - Acute on chronic combined systolic (congestive) and diastolic (congestive) heart failure Plan to address problem: IV Lasix 40 mg q12.ECHO ordered.Cardiology consulted strict I/O continue IV lasix 40 BID continue carvedilol 25 bid/diovan 80 QD repeat ECHO with contrast (2) HTN (hypertension) Current Visit: Yes Status: Chronic Qualifiers: Hypertension type: essential hypertension Qualified Code(s): I10 - Essential (primary) hypertension Plan to address problem: Cont Antihypertensives (3) Junctional cardiac arrhythmia Current Visit: Yes Status: Acute Plan to address problem: cont beta blockers in form of carvedilol and defer to cardiolgy for further management Digoxin added (4) GERD (gastroesophageal reflux disease) Current Visit: Yes Status: Chronic Qualifiers: Esophagitis presence: without esophagitis Qualified Code(s): K21.9 - Gastro -esophageal reflux disease without esophagitis Plan to address problem: Cont Ranitidine (5) Hyperkalemia Current Visit: Yes Status: Acute Plan to address problem: Aldactone stopped K level 5.3 -mild (6) DVT prophylaxis Current Visit: Yes Status: Acute Plan to address problem: Patient on Lovenox 40 mg sq qd Subjective Date of service: 01/17/17 Principal diagnosis: Chf exacerbation Interval history: Interval improvement present Objective - Exam Narrative Exam: Sob while at rest-uncomfortable - Constitutional Vitals: Vital Signs - 12hr 01/17/17 01/17/17 01/17/17 06:11 08:30 09:38 Temperature 97.5 F L 97.7 F Pulse Rate 104 H Pulse Rate [ 118 H 106 H Left Radial] Respiratory 20 18 Rate Blood Pressure 119/68 Blood Pressure 119/81 115/73 [Left Radial Artery] O2 Sat by Pulse 97 100 Oximetry 01/17/17 01/17/17 09:39 14:09 Temperature Pulse Rate 104 H Pulse Rate [ Left Radial] Respiratory Rate Blood Pressure 119/64 Blood Pressure [Left Radial Artery] O2 Sat by Pulse 92 Oximetry General appearance: Present: no acute distress, well-nourished - EENT Eyes: PERRL, EOM intact ENT: hearing intact, clear oral mucosa Ears: bilateral: normal - Neck Neck: supple, normal ROM - Respiratory Respiratory effort: normal Respiratory: bilateral: CTA - Breasts Breasts: normal - Cardiovascular Rhythm: regular Heart Sounds: Present: S1 & S2. Absent: gallop, rub Extremities: pulses intact, No edema, normal color, Full ROM - Gastrointestinal General gastrointestinal: Present: soft, non-tender, non-distended, normal bowel sounds - Genitourinary Female genitourinary: normal - Integumentary Integumentary: clear, warm, dry - Musculoskeletal Musculoskeletal: 1, strength equal bilaterally - Neurologic Neurologic: moves all extremities - Psychiatric Psychiatric: memory intact, appropriate mood/affect, intact judgment & insight - Labs CBC & Chem 7: 01/17/17 05:29 01/18/17 05:07 Labs: Abnormal lab results 01/16/17 01/17/17 01/17/17 Range/Units 22:34 05:29 05:29 RDW 19.2 H (13.2-15.2) % Lymph % (Auto) 5.9 L (13.4-35.0) % [place] % (Auto) 10.8 H (0.0-7.3) % Lymph # 0.4 L (1.2-5.4) K/mm3 Seg Neutrophils % 80.1 H (40.0-70.0) % Sodium 131 L (137-145) mmol/L Potassium 5.3 H (3.6-5.0) mmol/L Chloride 94.8 L (98-107) mmol/L Carbon Dioxide 21 L (22-30) mmol/L BUN 39 H (7-17) mg/dL Creatinine 1.4 H (0.7-1.2) mg/dL Glucose 196 H (65-100) mg/dL POC Glucose 210 H (70-105)
[2017-01-17] MEDS ORDERED: LANOXIN PO SCH (17:00)
[2017-01-17] MEDS: ZOCOR PO SCH (22:10)
[2017-01-18] MEDS: TYLENOL PO PRN (03:23)
[2017-01-18 05:59] LABS: BUN/Creatinine Ratio 27.33; Calcium 9.3 mg/dL (8.4-10.2); Potassium 5.2 mmol/L (3.6-5.0)
[2017-01-18] MEDS: LASIX IV SCH ×2 (06:34→19:17)
[2017-01-18] MEDS ORDERED: KIONEX PO ONE (08:58)
[2017-01-18] MEDS: PEPCID PO SCH (09:47)
[2017-01-18] MEDS: COREG PO SCH ×2 (09:48→21:50)
[2017-01-18] MEDS: DIOVAN PO SCH (09:48)
--- NOTE | 2017-01-18 11:01 | Progress Note ---
Assessment and Plan Acute on chronic biventricular systolic heart failure Does not appear to be clinically improving strict I/O continue IV lasix 40 BID continue carvedilol 25 bid/diovan 80 QD CIERRA / Hyperkalemia d/c aldactone monitor Hyponatremia monitor Accelerated Junctional rhythm Also with intermittent SR with prolonged [place] v. IVCD v. idioventricular rhythm noted on tele. continue carvedilol Cardiomyopathy EF 10 - 15% Diabetes Hypertension Hyperlipidemia History of Breast CA Obesity Echo reviewed - EF 10 - 15%, LA mildly dilated, RV mild to moderately dilated, RA mild to moderately dilated, trace AR, mild MR, mild to moderate TR, RVSP 48mmHg, small pericardial effusion, large left pleural effusion. Recommend coronary angiography for further evaluation of CMP. However, in setting of pt's CIERRA, recommend nephrology consultation for clearance for LHC. Will plan for LHC once medically stabilized and if/when cleared by nephrology. Cont diuresis with IV lasix, BID. Obtain EP consultation in setting of CMP and for rhythm clarification. Tx to ICU as pt is currently high risk for decompensation and may require inotropic therapy. D/w Dr. Hopkins. Consider dobutamine gtt following EP consultation. The patient has been seen in conjunction with Dr. Campos who agrees with the assessment and plan of care. Subjective Date of service: 01/18/17 Principal diagnosis: Chf exacerbation Interval history: Pt resting in bed, c/o generalized weakness and SOB. Appears to be junctional tachycardia with IVCD on tele, HR 100s, BPs low-normal. Objective Last Vital Signs Temp 98.5 F 01/18/17 10:03 Pulse 103 H 01/18/17 10:51 Resp 20 01/18/17 10:51 BP 113/78 01/18/17 10:03 Pulse Ox 96 01/18/17 10:51 - Physical Examination HEENT: Positive: PERRL, EOMI Neck: Positive: neck supple, trachea midline Cardiac: Positive: S1/S2, Tachycardia Lungs: Positive: Decreased Breath Sounds, Wheezes (expiratory) Neuro: Positive: Grossly Intact Abdomen: Positive: Unremarkable, Soft, Active Bowel Sounds Skin: Negative: Rash, Suspicious Lesions Extremities: Present: edema (trace BLE ), warm, Other (chronic venous stasis changes) - Labs and Meds Comprehensive Metabolic Panel 01/18/17 Range/Units 05:07 Sodium 129 L (137-145) mmol/L Potassium 5.2 H (3.6-5.0) mmol/L Chloride 92.0 L (98-107) mmol/L Carbon Dioxide 22 (22-30) mmol/L BUN 41 H (7-17) mg/dL Creatinine 1.5 H (0.7-1.2) mg/dL Glucose 228 H (65-100) mg/dL Calcium 9.3 (8.4-10.2) mg/dL - Imaging and Cardiology EKG: report reviewed (Tachycardia of 128/min Junctional rhythm) Stress echo: report reviewed (Cardiac PET 11/11: very small mild anterior, anteroapical mild reversible defect. EF stress 58%) Echo: report reviewed (ECHO 11/16: TDS, EF cannot be determined due to poor image quality, ) Cardiac cath: report reviewed ([facility] 06/07: LM: patent, LCX: diffuse disease, LAD: diffuse disease, RCA: diffuse disease, mid 40%)
[2017-01-18] MEDS ORDERED: DOBUTREX DRIP 500MG/D5W 250ML 500 MG/250 ML BAG IV SCH ×2 (11:30→18:00)
--- NOTE | 2017-01-18 13:52 | Progress Note ---
Assessment and Plan Assessment and plan: Patient is 71 yo woman who lives alone but has partial functional quadriplegia/ wheelchair bound (mostly uses a walker to the bathroom) with a h/o chronic hypoxic respiratory failure on 2 L oxygen at home, morbid obesity bmi 52.1, CHF , nonobstructive coronary artery disease and dyslipidemia who presented to [facility] emergency room on 01/15/2017 with complaints of shortness of breath and rapid heartbeat. EKG showed tachyarrhythmia, diagnosed as accelerated junctional per cardiology. Chest x-ray was read as cardiomegaly with pulmonary vascular congestion more pronounced compared to previous study, probable CHF. 01/15/2017 2D echocardiogram reported as global left ventricular systolic function is severely decreased, estimated EF is 10-15% , left atrium mildly dilated, right ventricle is mild to moderately dilated, right ventricular global systolic function is moderately reduced, right atrium is mild to moderate dilated, trace AR, no , mitral annular calcification, mild MR, no ms, moderate TR, right ventricular systolic function is Rated at 48mmhg, there is small pericardial effusion which does not appear to be hemodynamically significant, large left pleural effusion is present. -Acute on chronic systolic heart failure, chronic and worsening: Cardiology is following, request patient be transferred to the ICU for worsening CHF, treated with Diuresis, add ASA -Accelerated junction arrhythmia, uncontrolled: Cardiology is following, they request air cargo specialist supervisor to evaluate -Acute renal failure, vasomotor nephropathy present on admission: Consulted nephrology -Hyperkalemia, mild, will restart her home insulin: monitor closely, still on Diovan per Dr. Cedeño, it appears benefits>risk at this point, await Nephrology evaluation; she had already received dose today. Will stop -Hyponatremia due to hyperglycemia: Control blood sugars -Uncontrolled type 2 diabetes mellitus: Restart home regimen -Chronic hypoxic respiratory failure due to CHF: Continue oxygen -DVT prophylaxis: change sq lovenox to sq heparin due to renal impairment Hospitalist Physical - Constitutional Vitals: Temp Pulse Resp BP Pulse Ox 98.4 F 73 18 107/71 97 01/18/17 13:37 01/18/17 13:37 01/18/17 13:37 01/18/17 13:37 01/18/17 13:37 General appearance: Present: no acute distress, well-nourished Results - Labs CBC & Chem 7: 01/17/17 05:29 01/18/17 05:07 Labs: Laboratory Last Values WBC 6.0 K/mm3 (4.5-11.0) 01/17/17 05:29 RBC 4.76 M/mm3 (3.65-5.03) 01/17/17 05:29 Hgb 13.8 gm/dl (10.1-14.3) 01/17/17 05:29 Hct 41.4 % (30.3-42.9) 01/17/17 05:29 MCV 87 fl (79-97) 01/17/17 05:29 MCH 29 pg (28-32) 01/17/17 05:29 MCHC 33 % (30-34) 01/17/17 05:29 RDW 19.2 % (13.2-15.2) H 01/17/17 05:29 Plt Count 162 K/mm3 (140-440) 01/17/17 05:29 Lymph % (Auto) 5.9 % (13.4-35.0) L 01/17/17 05:29 [place] % (Auto) 10.8 % (0.0-7.3) H 01/17/17 05:29 Eos % (Auto) 2.4 % (0.0-4.3) 01/17/17 05:29 Baso % (Auto) 0.8 % (0.0-1.8) 01/17/17 05:29 Lymph # 0.4 K/mm3 (1.2-5.4) L 01/17/17 05:29 [place] # 0.6 K/mm3 (0.0-0.8) 01/17/17 05:29 Eos # 0.1 K/mm3 (0.0-0.4) 01/17/17 05:29 Baso # 0.0 K/mm3 (0.0-0.1) 01/17/17 05:29 Add Manual Diff Complete 01/15/17 23:40 Total Counted 100 01/15/17 23:40 Seg Neutrophils % 80.1 % (40.0-70.0) H 01/17/17 05:29 Seg Neuts % (Manual) 82.0 % (40.0-70.0) H 01/15/17 23:40 Band Neutrophils % 3.0 % 01/15/17 23:40 Lymphocytes % (Manual) 7.0 % (13.4-35.0) L 01/15/17 23:40 Reactive Lymphs % (Man) 0 % 01/15/17 23:40 Monocytes % (Manual) 6.0 % (0.0-7.3) 01/15/17 23:40 Eosinophils % (Manual) 2.0 % (0.0-4.3) 01/15/17 23:40 Basophils % (Manual) 0 % (0.0-1.8) 01/15/17 23:40 Metamyelocytes % 0 % 01/15/17 23:40 Myelocytes % 0 % 01/15/17 23:40 Promyelocytes % 0 % 01/15/17 23:40 Blast Cells % 0 % 01/15/17 23:40 Nucleated RBC % Not Reportable 01/15/17 23:40 Seg Neutrophils # 4.8 K/mm3 (1.8-7.7) 01/17/17 05:29 Seg Neutrophils # Man 4.7 K/mm3 (1.8-7.7) 01/15/17 23:40 Band Neutrophils # 0.2 K/mm3 01/15/17 23:40 Lymphocytes # (Manual) 0.4 K/mm3 (1.2-5.4) L 01/15/17 23:40 Abs React Lymphs (Man) 0.0 K/mm3 01/15/17 23:40 Monocytes # (Manual) 0.3 K/mm3 (0.0-0.8) 01/15/17 23:40 Eosinophils # (Manual) 0.1 K/mm3 (0.0-0.4) 01/15/17 23:40 Basophils # (Manual) 0.0 K/mm3 (0.0-0.1) 01/15/17 23:40 Metamyelocytes # 0.0 K/mm3 01/15/17 23:40 Myelocytes # 0.0 K/mm3 01/15/17 23:40 Promyelocytes # 0.0 K/mm3 01/15/17 23:40 Blast Cells # 0.0 K/mm3 01/15/17 23:40 WBC Morphology Not Reportable 01/15/17 23:40 Hypersegmented Neuts Not Reportable 01/15/17 23:40 Hyposegmented Neuts Not Reportable 01/15/17 23:40 Hypogranular Neuts Not Reportable 01/15/17 23:40 Smudge Cells Not Reportable 01/15/17 23:40 Toxic Granulation Not Reportable 01/15/17 23:40 Toxic Vacuolation Not Reportable 01/15/17 23:40 Dohle Bodies Not Reportable 01/15/17 23:40 Pelger-Huet Anomaly Not Reportable 01/15/17 23:40 Yusuf Rods Not Reportable 01/15/17 23:40 Platelet Estimate Appears normal 01/15/17 23:40 Clumped Platelets 1+ 01/15/17 23:40 Plt Clumps, EDTA Not Reportable 01/15/17 23:40 Large Platelets Not Reportable 01/15/17 23:40 Giant Platelets Not Reportable 01/15/17 23:40 Platelet Satelliting Not Reportable 01/15/17 23:40 Plt Morphology Comment Not Reportable 01/15/17 23:40 RBC Morphology Not Reportable 01/15/17 23:40 Dimorphic RBCs Not Reportable 01/15/17 23:40 Polychromasia Not Reportable 01/15/17 23:40 Hypochromasia Not Reportable 01/15/17 23:40 Poikilocytosis Not Reportable 01/15/17 23:40 Anisocytosis 1+ 01/15/17 23:40 Microcytosis Not Reportable 01/15/17 23:40 Macrocytosis Not Reportable 01/15/17 23:40 Spherocytes Not Reportable 01/15/17 23:40 Pappenheimer Bodies Not Reportable 01/15/17 23:40 Sickle Cells Not Reportable 01/15/17 23:40 Target Cells Not Reportable 01/15/17 23:40 Tear Drop Cells Not Reportable 01/15/17 23:40 Ovalocytes Not Reportable 01/15/17 23:40 Helmet Cells Not Reportable 01/15/17 23:40 [place] Bodies Not Reportable 01/15/17 23:40 [place] Rings Not Reportable 01/15/17 23:40 [place] Cells Not Reportable 01/15/17 23:40 Bite Cells Not Reportable 01/15/17 23:40 Crenated Cell Not Reportable 01/15/17 23:40 Elliptocytes 1+ 01/15/17 23:40 Acanthocytes (Spur) Not Reportable 01/15/17 23:40 Rouleaux Not Reportable 01/15/17 23:40 Hemoglobin C Crystals Not Reportable 01/15/17 23:40 Schistocytes Not Reportable 01/15/17 23:40 Malaria parasites Not Reportable 01/15/17 23:40 [place] Bodies Not Reportable 01/15/17 23:40 Hem Pathologist Commnt No 01/15/17 23:40 Sodium 129 mmol/L (137-145) L 01/18/17 05:07 Potassium 5.2 mmol/L (3.6-5.0) H 01/18/17 05:07 Chloride 92.0 mmol/L (98-107) L 01/18/17 05:07 Carbon Dioxide 22 mmol/L (22-30) 01/18/17 05:07 Anion Gap 20 mmol/L 01/18/17 05:07 BUN 41 mg/dL (7-17) H 01/18/17 05:07 Creatinine 1.5 mg/dL (0.7-1.2) H 01/18/17 05:07 Estimated GFR 41 ml/min 01/18/17 05:07 BUN/Creatinine Ratio 27.33 % 01/18/17 05:07 Glucose 228 mg/dL (65-100) H 01/18/17 05:07 POC Glucose 223 (70-105) H 01/17/17 22:45 Calcium 9.3 mg/dL (8.4-10.2) 01/18/17 05:07 Total Bilirubin 1.40 mg/dL (0.1-1.2) H 01/16/17 08:56 AST 19 units/L (5-40) 01/16/17 08:56 ALT 11 units/L (7-56) 01/16/17 08:56 Alkaline Phosphatase 68 units/L (35-129) 01/16/17 08:56 Troponin T 0.019 ng/mL (0.00-0.029) 01/16/17 16:36 NT-Pro-B Natriuret Pep 8400 pg/mL (0-900) H 01/15/17 09:03 Total Protein 6.2 g/dL (6.3-8.2) L 01/16/17 08:56 Albumin 3.1 g/dL (3.9-5) L 01/16/17 08:56 Albumin/Globulin Ratio 1.0 % 01/16/17 08:56 Urine Color Yellow (Yellow) 01/15/17 10:16 Urine Turbidity Clear (Clear) 01/15/17 10:16 Urine pH 5.0 (5.0-7.0) 01/15/17 10:16 Ur Specific [place] 1.011 (1.003-1.030) 01/15/17 10:16 Urine Protein 30 mg/dl mg/dL (Negative) 01/15/17 10:16 Urine Glucose (UA) Neg mg/dL (Negative) 01/15/17 10:16 Urine Ketones Neg mg/dL (Negative) 01/15/17 10:16 Urine Blood Neg (Negative) 01/15/17 10:16 Urine Nitrite Neg (Negative) 01/15/17 10:16 Urine Bilirubin Neg (Negative) 01/15/17 10:16 Urine Urobilinogen < 2.0 mg/dL (<2.0) 01/15/17 10:16 Ur Leukocyte Esterase Neg (Negative) 01/15/17 10:16 Urine WBC (Auto) < 1.0 /HPF (0.0-6.0) 01/15/17 10:16 Urine RBC (Auto) < 1.0 /HPF (0.0-6.0) 01/15/17 10:16 U Epithel Cells (Auto) 7.0 /HPF (0-13.0) 01/15/17 10:16 Amorphous Crystals 2+ 01/15/17 10:16
[2017-01-18] MEDS: BABY ASPIRIN PO SCH (15:44)
--- NOTE | 2017-01-18 17:47 | Event Note ---
Date: 01/18/17 01/15/2017 2D echocardiogram reported as global left ventricular systolic function is severely decreased, estimated EF is 10-15%, left atrium mildly dilated, right ventricle is mild to moderately dilated, right ventricular global systolic function is moderately reduced, right atrium is mild to moderate dilated, trace AR, no , mitral annular calcification, mild MR, no ms , moderate TR, right ventricular systolic function is Rated at 48mmhg, there is small pericardial effusion which does not appear to be hemodynamically significant, large left pleural effusion is present. Acute on chronic systolic heart failure Accelerated junction arrhythmia vs sinus with long AR interval QRS vector same as office EKG unlikely VT Agree with inotrope to help with biventricular failure Pt complained of itching with beta steven metoprolol in past ( might be candidate for carvediolol)
[2017-01-18] MEDS: ZOCOR PO SCH (21:51)
[2017-01-19 04:15] LABS: Hematocrit 40.2 % (30.3-42.9); Mean Corpuscular HGB Conc 32 % (30-34); Mean Corpuscular Hemoglobin 29 pg (28-32); Mean Corpuscular Volume 89 fl (79-97); Platelet Count 142 K/mm3 (140-440); Red Blood Count 4.52 M/mm3 (3.65-5.03); Red Cell Distribution Width 18.9 % (13.2-15.2); White Blood Count 5.9 K/mm3 (4.5-11.0)
[2017-01-19 04:36] LABS: BUN/Creatinine Ratio 28.57; Calcium 8.7 mg/dL (8.4-10.2); Chloride 92.3 mmol/L (98-107); Potassium 4.3 mmol/L (3.6-5.0)
[2017-01-19] MEDS: LASIX IV SCH ×2 (05:53→18:03)
[2017-01-19] MEDS: COREG PO SCH ×2 (09:10→23:48)
[2017-01-19] MEDS: BABY ASPIRIN PO SCH (09:11)
[2017-01-19] MEDS ORDERED: PEPCID PO SCH (10:00)
--- NOTE | 2017-01-19 11:36 | Progress Note ---
Assessment and Plan Acute on chronic biventricular systolic heart failure strict I/O continue IV lasix 40 BID continue carvedilol 25 bid. Diovan held in setting of CIERRA. Await nephrology consultation. cont dobutamine gtt. CIERRA / Hyperkalemia aldactone held monitor Hyponatremia monitor Accelerated junction arrhythmia vs sinus with long AR interval QRS vector same as office EKG unlikely VT Also with intermittent SR with prolonged AR v. IVCD v. idioventricular rhythm noted on tele. continue carvedilol Cardiomyopathy EF 10 - 15% Diabetes Hypertension Hyperlipidemia History of Breast CA Obesity Cont present cardiac regimen. Await nephrology consultation. Will plan for LHC once medically stabilized and if/when cleared by nephrology. The patient has been seen in conjunction with Dr. Campos who agrees with the assessment and plan of care. Subjective Date of service: 01/19/17 Principal diagnosis: Chf exacerbation Interval history: Pt resting in bed, c/o RICHARDSON. Remains in apparent junctional tachycardia with IVCD on tele, BPs stable. On dobutamine gtt. Objective Last Vital Signs Temp 97.7 F 01/19/17 07:59 Pulse 73 01/19/17 10:41 Resp 14 01/19/17 10:41 BP 104/71 01/19/17 10:41 Pulse Ox 96 01/19/17 10:41 - Physical Examination General: Appears Well HEENT: Positive: PERRL, EOMI Neck: Positive: neck supple, trachea midline Cardiac: Positive: Regular Rhythm, S1/S2 Lungs: Positive: Decreased Breath Sounds Neuro: Positive: Grossly Intact Abdomen: Positive: Unremarkable, Soft, Active Bowel Sounds Skin: Negative: Rash, Suspicious Lesions Extremities: Present: edema (trace BLE ), warm, Other (chronic venous stasis changes) - Labs and Meds CBC 01/19/17 Range/Units 03:46 WBC 5.9 (4.5-11.0) K/mm3 RBC 4.52 (3.65-5.03) M/mm3 Hgb 13.0 (10.1-14.3) gm/dl Hct 40.2 (30.3-42.9) % Plt Count 142 (140-440) K/mm3 Comprehensive Metabolic Panel 01/19/17 Range/Units 03:46 Sodium 128 L (137-145) mmol/L Potassium 4.3 (3.6-5.0) mmol/L Chloride 92.3 L (98-107) mmol/L Carbon Dioxide 21 L (22-30) mmol/L BUN 40 H (7-17) mg/dL Creatinine 1.4 H (0.7-1.2) mg/dL Glucose 178 H (65-100) mg/dL Calcium 8.7 (8.4-10.2) mg/dL - Imaging and Cardiology EKG: report reviewed (Tachycardia of 128/min Junctional rhythm) Stress echo: report reviewed (Cardiac PET 11/11: very small mild anterior, anteroapical mild reversible defect. EF stress 58%) Echo: report reviewed (ECHO 11/16: TDS, EF cannot be determined due to poor image quality, ) Cardiac cath: report reviewed ([facility] 06/07: LM: patent, LCX: diffuse disease, LAD: diffuse disease, RCA: diffuse disease, mid 40%)
[2017-01-19] MEDS ORDERED: CORDARONE 900 MG in D5W 482 ML IV SCH (12:00)
[2017-01-19] MEDS ORDERED: AMIDATE IV ONE (12:00)
--- NOTE | 2017-01-19 12:19 | XRay Report ---
PORTABLE CHEST INDICATION: Status post intubation. COMPARISON: 01/15/2017 FINDINGS: Portable, frontal chest radiograph demonstrates new endotracheal tube tip approximately 1.2 cm above the ariella. Moderate cardiomegaly, aortic knob calcifications and congestive bronchovascular prominence again noted. Gaseous gastric distention also now seen. EKG leads. Stable bones. CONCLUSION: Interval intubation with gaseous gastric distention now noted with cardiomegaly and mild CHF. Please correlate. Thank you for the opportunity to participate in this patient's care.
[2017-01-19] MEDS ORDERED: ARTIFICIAL TEARS OPHTH OINT OU PRN (12:26)
[2017-01-19] MEDS ORDERED: VASELINE LIP THERAPY TP PRN (12:26)
--- NOTE | 2017-01-19 12:26 | Progress Note ---
Assessment and Plan Assessment and plan: Patient is 71 yo woman who lives alone but has partial functional quadriplegia/ wheelchair bound (mostly uses a walker to the bathroom) with a h/o chronic hypoxic respiratory failure on 2 L oxygen at home, right sided breast cancer, morbid obesity bmi 52.1, CHF, nonobstructive coronary artery disease and dyslipidemia who presented to [facility] emergency room on 01/15/2017 with complaints of shortness of breath and rapid heartbeat. EKG showed tachyarrhythmia, diagnosed as accelerated junctional per cardiology. Chest x-ray was read as cardiomegaly with pulmonary vascular congestion more pronounced compared to previous study, probable CHF. 01/15/2017 2D echocardiogram reported as global left ventricular systolic function is severely decreased, estimated EF is 10-15%, left atrium mildly dilated, right ventricle is mild to moderately dilated, right ventricular global systolic function is moderately reduced, right atrium is mild to moderate dilated, trace AR, no , mitral annular calcification, mild MR, no ms, moderate TR, right ventricular systolic function is calculated at 48mmhg, there is small pericardial effusion which does not appear to be hemodynamically significant, large left pleural effusion is present. -Acute on chronic systolic heart failure, chronic and worsening: Cardiology is following, request patient be transferred to the ICU for worsening CHF, treated with Diuresis, add ASA -Accelerated junction arrhythmia, uncontrolled: Cardiology is following, they request product marketing specialist to evaluate -Acute renal failure, vasomotor nephropathy present on admission: Consulted nephrology -Hyperkalemia, mild, will restart her home insulin: monitor closely, still on Diovan per Dr. Cedeño, it appears benefits>risk at this point, await Nephrology evaluation; she had already received dose today. Will stop -Hyponatremia due to hyperglycemia: Control blood sugars -Uncontrolled type 2 diabetes mellitus: Restart home regimen -Chronic hypoxic respiratory failure due to CHF: Continue oxygen -DVT prophylaxis: change sq lovenox to sq heparin due to renal impairment full code Patient was transferred to the ICU yesterday and started on Milrinone drip last night 01/18/17 after EP re-evaluation Today ZECHARIAH AGUILAR called at 1135. Parts Cleaner, Dr. Rios were close and ran the code. It appears patient was being washed up and she had bradycardia down to PEA, ACLS and chest compressions were started, patient pulse was restored with 2 doses of epinephrine. When Dr. Rios was intubating, he noticed food particles in the back of her throat; therefore, patient most likely aspirated, became hypoxic and went into PEA. During the CODE BLUE, she had more pronounced wide complex tachycardia; therefore, I ordered Primacor to be discontinued. Cardiology Dr. Campos came to the bedside and gave her Amiodarone 150 mg IV bolus 1 followed by Amiodarone drip. I called daughter Olivia, listed next of kin at [phone], ==>continue full code CCT 42 minutes History Interval history: Patient seen and examined. Follow up on arrhythmia. Overnight uneventful. No cp , sob, n/v or severe headaches. Imaging, old records, testing, labs, nursing notes reviewed. Hospitalist Physical - Physical exam Narrative exam: GEN: ill appearing bmi 52.1 NAD, AWAKE, ALERT, ORIENTATED x 3 HEENT: NCAT, PERRL, EOMI, OP CLEAR NECK: SUPPLE, NO THYROMEGALY, + JVD, NO LAD CVS: irregular irregular, NORMAL S1S2 LUNGS/CHEST: CTA B, NORMAL CHEST EXPANSION B, GOOD AIR ENTRY B ABD: SOFT, distended GBS, NO REBOUND OR GUARDING EXT/SKIN: SIGNIFICANT EDEMA justino MSK: FROM X 4 EXTREMITIES NEURO: CN 2-12 GROSSLY INTACT, NO FOCAL DEFICITS PSY: CALM - Constitutional Vitals: Temp Pulse Resp BP Pulse Ox 97.7 F 75 20 114/78 100 01/19/17 07:59 01/19/17 12:01 01/19/17 12:01 01/19/17 12:01 01/19/17 12:01 General appearance: Present: no acute distress, well-nourished Results - Labs CBC & Chem 7: 01/19/17 03:46 01/19/17 03:46 Labs: Laboratory Last Values WBC 5.9 K/mm3 (4.5-11.0) 01/19/17 03:46 RBC 4.52 M/mm3 (3.65-5.03) 01/19/17 03:46 Hgb 13.0 gm/dl (10.1-14.3) 01/19/17 03:46 Hct 40.2 % (30.3-42.9) 01/19/17 03:46 MCV 89 fl (79-97) 01/19/17 03:46 MCH 29 pg (28-32) 01/19/17 03:46 MCHC 32 % (30-34) 01/19/17 03:46 RDW 18.9 % (13.2-15.2) H 01/19/17 03:46 Plt Count 142 K/mm3 (140-440) 01/19/17 03:46 Lymph % (Auto) 5.9 % (13.4-35.0) L 01/17/17 05:29 [place] % (Auto) 10.8 % (0.0-7.3) H 01/17/17 05:29 Eos % (Auto) 2.4 % (0.0-4.3) 01/17/17 05:29 Baso % (Auto) 0.8 % (0.0-1.8) 01/17/17 05:29 Lymph # 0.4 K/mm3 (1.2-5.4) L 01/17/17 05:29 [place] # 0.6 K/mm3 (0.0-0.8) 01/17/17 05:29 Eos # 0.1 K/mm3 (0.0-0.4) 01/17/17 05:29 Baso # 0.0 K/mm3 (0.0-0.1) 01/17/17 05:29 Add Manual Diff Complete 01/15/17 23:40 Total Counted 100 01/15/17 23:40 Seg Neutrophils % 80.1 % (40.0-70.0) H 01/17/17 05:29 Seg Neuts % (Manual) 82.0 % (40.0-70.0) H 01/15/17 23:40 Band Neutrophils % 3.0 % 01/15/17 23:40 Lymphocytes % (Manual) 7.0 % (13.4-35.0) L 01/15/17 23:40 Reactive Lymphs % (Man) 0 % 01/15/17 23:40 Monocytes % (Manual) 6.0 % (0.0-7.3) 01/15/17 23:40 Eosinophils % (Manual) 2.0 % (0.0-4.3) 01/15/17 23:40 Basophils % (Manual) 0 % (0.0-1.8) 01/15/17 23:40 Metamyelocytes % 0 % 01/15/17 23:40 Myelocytes % 0 % 01/15/17 23:40 Promyelocytes % 0 % 01/15/17 23:40 Blast Cells % 0 % 01/15/17 23:40 Nucleated RBC % Not Reportable 01/15/17 23:40 Seg Neutrophils # 4.8 K/mm3 (1.8-7.7) 01/17/17 05:29 Seg Neutrophils # Man 4.7 K/mm3 (1.8-7.7) 01/15/17 23:40 Band Neutrophils # 0.2 K/mm3 01/15/17 23:40 Lymphocytes # (Manual) 0.4 K/mm3 (1.2-5.4) L 01/15/17 23:40 Abs React Lymphs (Man) 0.0 K/mm3 01/15/17 23:40 Monocytes # (Manual) 0.3 K/mm3 (0.0-0.8) 01/15/17 23:40 Eosinophils # (Manual) 0.1 K/mm3 (0.0-0.4) 01/15/17 23:40 Basophils # (Manual) 0.0 K/mm3 (0.0-0.1) 01/15/17 23:40 Metamyelocytes # 0.0 K/mm3 01/15/17 23:40 Myelocytes # 0.0 K/mm3 01/15/17 23:40 Promyelocytes # 0.0 K/mm3 01/15/17 23:40 Blast Cells # 0.0 K/mm3 01/15/17 23:40 WBC Morphology Not Reportable 01/15/17 23:40 Hypersegmented Neuts Not Reportable 01/15/17 23:40 Hyposegmented Neuts Not Reportable 01/15/17 23:40 Hypogranular Neuts Not Reportable 01/15/17 23:40 Smudge Cells Not Reportable 01/15/17 23:40 Toxic Granulation Not Reportable 01/15/17 23:40 Toxic Vacuolation Not Reportable 01/15/17 23:40 Dohle Bodies Not Reportable 01/15/17 23:40 Pelger-Huet Anomaly Not Reportable 01/15/17 23:40 Yusuf Rods Not Reportable 01/15/17 23:40 Platelet Estimate Appears normal 01/15/17 23:40 Clumped Platelets 1+ 01/15/17 23:40 Plt Clumps, EDTA Not Reportable 01/15/17 23:40 Large Platelets Not Reportable 01/15/17 23:40 Giant Platelets Not Reportable 01/15/17 23:40 Platelet Satelliting Not Reportable 01/15/17 23:40 Plt Morphology Comment Not Reportable 01/15/17 23:40 RBC Morphology Not Reportable 01/15/17 23:40 Dimorphic RBCs Not Reportable 01/15/17 23:40 Polychromasia Not Reportable 01/15/17 23:40 Hypochromasia Not Reportable 01/15/17 23:40 Poikilocytosis Not Reportable 01/15/17 23:40 Anisocytosis 1+ 01/15/17 23:40 Microcytosis Not Reportable 01/15/17 23:40 Macrocytosis Not Reportable 01/15/17 23:40 Spherocytes Not Reportable 01/15/17 23:40 Pappenheimer Bodies Not Reportable 01/15/17 23:40 Sickle Cells Not Reportable 01/15/17 23:40 Target Cells Not Reportable 01/15/17 23:40 Tear Drop Cells Not Reportable 01/15/17 23:40 Ovalocytes Not Reportable 01/15/17 23:40 Helmet Cells Not Reportable 01/15/17 23:40 [place] Bodies Not Reportable 01/15/17 23:40 Bell Buckle Rings Not Reportable 01/15/17 23:40 Wally Cells Not Reportable 01/15/17 23:40 Bite Cells Not Reportable 01/15/17 23:40 Crenated Cell Not Reportable 01/15/17 23:40 Elliptocytes 1+ 01/15/17 23:40 Acanthocytes (Spur) Not Reportable 01/15/17 23:40 Rouleaux Not Reportable 01/15/17 23:40 Hemoglobin C Crystals Not Reportable 01/15/17 23:40 Schistocytes Not Reportable 01/15/17 23:40 Malaria parasites Not Reportable 01/15/17 23:40 Trevor Bodies Not Reportable 01/15/17 23:40 Hem Pathologist Commnt No 01/15/17 23:40 Sodium 128 mmol/L (137-145) L 01/19/17 03:46 Potassium 4.3 mmol/L (3.6-5.0) 01/19/17 03:46 Chloride 92.3 mmol/L (98-107) L 01/19/17 03:46 Carbon Dioxide 21 mmol/L (22-30) L 01/19/17 03:46 Anion Gap 19 mmol/L 01/19/17 03:46 BUN 40 mg/dL (7-17) H 01/19/17 03:46 Creatinine 1.4 mg/dL (0.7-1.2) H 01/19/17 03:46 Estimated GFR 45 ml/min 01/19/17 03:46 BUN/Creatinine Ratio 28.57 % 01/19/17 03:46 Glucose 178 mg/dL (65-100) H 01/19/17 03:46 POC Glucose 253 (70-105) H 01/18/17 16:00 Calcium 8.7 mg/dL (8.4-10.2) 01/19/17 03:46 Magnesium 2.00 mg/dL (1.7-2.3) 01/19/17 03:46 Total Bilirubin 1.40 mg/dL (0.1-1.2) H 01/16/17 08:56 AST 19 units/L (5-40) 01/16/17 08:56 ALT 11 units/L (7-56) 01/16/17 08:56 Alkaline Phosphatase 68 units/L (35-129) 01/16/17 08:56 Troponin T 0.019 ng/mL (0.00-0.029) 01/16/17 16:36 NT-Pro-B Natriuret Pep 8400 pg/mL (0-900) H 01/15/17 09:03 Total Protein 6.2 g/dL (6.3-8.2) L 01/16/17 08:56 Albumin 3.1 g/dL (3.9-5) L 01/16/17 08:56 Albumin/Globulin Ratio 1.0 % 01/16/17 08:56 Urine Color Yellow (Yellow) 01/15/17 10:16 Urine Turbidity Clear (Clear) 01/15/17 10:16 Urine pH 5.0 (5.0-7.0) 01/15/17 10:16 Ur Specific [place] 1.011 (1.003-1.030) 01/15/17 10:16 Urine Protein 30 mg/dl mg/dL (Negative) 01/15/17 10:16 Urine Glucose (UA) Neg mg/dL (Negative) 01/15/17 10:16 Urine Ketones Neg mg/dL (Negative) 01/15/17 10:16 Urine Blood Neg (Negative) 01/15/17 10:16 Urine Nitrite Neg (Negative) 01/15/17 10:16 Urine Bilirubin Neg (Negative) 01/15/17 10:16 Urine Urobilinogen < 2.0 mg/dL (<2.0) 01/15/17 10:16 Ur Leukocyte Esterase Neg (Negative) 01/15/17 10:16 Urine WBC (Auto) < 1.0 /HPF (0.0-6.0) 01/15/17 10:16 Urine RBC (Auto) < 1.0 /HPF (0.0-6.0) 01/15/17 10:16 U Epithel Cells (Auto) 7.0 /HPF (0-13.0) 01/15/17 10:16 Amorphous Crystals 2+ 01/15/17 10:16
[2017-01-19] MEDS ORDERED: REGLAN IV PRN (12:28)
[2017-01-19] MEDS: DIPRIVAN 10 MG/ML 1,000 MG/100 ML BOTTLE IV SCH ×2 (13:00→23:43)
[2017-01-19 13:36] LABS: Creatine Kinase MB 4.1 ng/mL (0.0-4.0)
[2017-01-19 13:37] LABS: BUN/Creatinine Ratio 27.85; Chloride 92.8 mmol/L (98-107); Magnesium 1.9 mg/dL (1.7-2.3); Potassium 4.2 mmol/L (3.6-5.0)
[2017-01-19] MEDS ORDERED: D50W (25GM) IV PRN (13:47)
[2017-01-19] MEDS: HEPARIN SUB-Q SCH (14:43)
--- NOTE | 2017-01-19 14:51 | Event Note ---
Date: 01/19/17 Pt seen s/p CODE BLUE. Code was called at 1135. Per records and nursing staff, pt was being bathed when she developed bradycardia and then PEA. ROSC was achieved following 2 doses of epi. Pt was intubated, and per Dr. Rios, food particles were noted in the back of pt's throat during intubation; aspiration leading to cardiorespiratory arrest is suspected. During the CODE BLUE, she had more pronounced wide complex tachycardia and dobutamine was discontinued. Pt was given IV amio 150mg bolus x 1 and initiated on amio gtt. Pt's daughter, Olivia, was spoken with in person s/p code. She was updated on recent events and current cardiac assessment and plan. She wises to maintain full code status and pursue all aggressive measures at this time and is agreeable to current cardiac management. SAUMYA ADAMES / DR. GUTIÉRREZ
--- NOTE | 2017-01-19 15:33 | XRay Report ---
PORTABLE CHEST INDICATION: Left arm PICC placement. COMPARISON: 11:57 AM earlier today. FINDINGS: Portable, frontal chest radiograph, 2:31 PM, 01/19/2017 demonstrates new left upper extremity PICC tip about the cavoatrial junction. Endotracheal tube has now advanced into the right mainstem bronchus. Stable moderate cardiomegaly with increased markings centrally and left midlung horizontal atelectasis. Poor penetration at the lung bases with left hemidiaphragm now more obscured. Small right axillary surgical clips possible. EKG leads. Stable bones. CONCLUSION: 1. Interval advancement of the endotracheal tube into the right mainstem bronchus and may be retracted by approximately 5 cm for optimal placement. 2. Uncomplicated left upper extremity PICC. 3. Cardiomegaly and mild congestion again noted with improved gaseous gastric distention. I phoned the above results to Ms. Patel, patient's nurse, 3:20 PM, 01/19/2017. Thank you for the opportunity to participate in this patient's care.
--- NOTE | 2017-01-19 16:19 | Consultation ---
History of Present Illness - Reason for Consult Consult date: 01/19/17 acute renal failure, chronic renal failure Requesting physician: JUMA WALSH - History of Present Illness ATMAUTLUAK:Patient is a 71 y/o female with hx of HTN CHF comes in for increasing SOB and palpitations.Intermittent Chest Discomfort.Orthopnea and palpitations present.No fever /chills.No recent travel Past History Past Medical History: arrhythmia, CAD, heart failure, hypertension, hyperlipidemia, renal failure Social history: Lives alone. denies: smoking, alcohol abuse, IV drug use Family history: diabetes, hypertension Medications and Allergies Allergies Allergy/AdvReac Type Severity Reaction Status Date / Time Penicillins Allergy Swelling Verified 01/22/16 12:36 Home Medications Medication Instructions Recorded Confirmed Last Taken Type Ascorbic Acid [Vitamin C] 500 mg PO DAILY 12/01/15 01/15/17 01/18/16 History Mv, Min #36/Iron,Carbonyl/FA 1 mg PO DAILY 12/01/15 01/15/17 01/18/16 History [Geritol Complete Tablet] [place]-3 Fatty Acids [Fish Oil] 1,200 mg PO DAILY 12/01/15 01/15/17 01/18/16 History Potassium Chloride 40 meq PO QDAY 01/19/16 01/15/17 01/18/16 History Ranitidine HCl [Acid Gameroom Technician] 150 mg PO BID 01/19/16 01/15/17 01/18/16 History Valsartan [Diovan] 80 mg PO DAILY 01/19/16 01/15/17 01/18/16 History Furosemide [Lasix TAB] 40 mg PO 0600,1800 #60 tablet 01/26/16 01/15/17 Unknown Rx Spironolactone [Aldactone] 25 mg PO QDAY #30 tablet 01/26/16 01/15/17 Unknown Rx Furosemide [Lasix TAB] 80 mg PO QDAY 01/15/17 01/15/17 Unknown History Furosemide [Lasix] 20 mg PO QDAY 01/15/17 01/15/17 Unknown History Active Meds: Active Medications Acetaminophen (Tylenol) 650 mg PO Q4H PRN PRN Reason: Pain MILD(1-3)/Fever >100.5/LIMA Last Admin: 01/18/17 03:23 Dose: 650 mg Aspirin (Baby Aspirin) 81 mg PO QDAY [facility] Last Admin: 01/19/17 09:11 Dose: 81 mg Bisacodyl (Dulcolax) 10 mg [place] QDAY PRN PRN Reason: Constipation unrelieved by MOM Carvedilol (Coreg) 25 mg PO BID [facility] Last Admin: 01/19/17 09:10 Dose: 25 mg Dextrose (D50w (25gm)) 50 ml IV PRN PRN PRN Reason: Hypoglycemia Famotidine (Pepcid) 20 mg PO BID [facility] Furosemide (Lasix) 40 mg IV 0600,1800 [facility] Last Admin: 01/19/17 05:53 Dose: 40 mg Heparin Sodium (Porcine) (Heparin) 5,000 unit SUB-Q Q12HR [facility] Last Admin: 01/19/17 14:43 Dose: 5,000 unit Hydromorphone HCl (Dilaudid) 0.5 mg IV Q3H PRN PRN Reason: Pain , Severe (7-10) Hydrophilic Ointment (Vaseline Lip Therapy) 1 applic TP Q2HR PRN PRN Reason: Dry Lips Propofol (Diprivan 10 Mg/Ml) 1,000 mg in 100 mls @ 4.26 mls/hr IV TITR ALANNA; 5 MCG/KG/MIN PRN Reason: Protocol Last Admin: 01/19/17 13:00 Dose: 5 mcg/kg/min, 4.26 mls/hr Insulin Aspart (Novolog) 0 units SUB-Q Q6HR [facility] PRN Reason: Protocol Metoclopramide HCl (Reglan) 10 mg IV Q8H PRN PRN Reason: Nausea And Vomiting Multi-Ingred Cream/Lotion/Oil/Oint (Artificial Tears Ophth Oint) 1 applic OU Q4HR PRN PRN Reason: Dry Eye(s) Oxycodone/Acetaminophen (Percocet 5/325) 1 tab PO Q6H PRN PRN Reason: Pain, Moderate (4-6) Simvastatin (Zocor) 10 mg PO QHS [facility] Last Admin: 01/18/17 21:51 Dose: 10 mg Sodium Chloride (Sodium Chloride Flush Syringe 10 Ml) 10 ml IV PRN PRN PRN Reason: LINE FLUSH Zolpidem Tartrate (Ambien) 5 mg PO QHS PRN PRN Reason: Insomnia Review of Systems ROS unobtainable: due to endotracheal tube Exam - Vital Signs Vital signs: Vital Signs Temp Pulse 98.6 F 140 H 01/15/17 08:42 01/15/17 08:42 - Physical Exam Narrative exam: General appearance:critically ill, on vent - EENT Eyes: Present: PERRL ENT: hearing intact, clear oral mucosa - Neck Neck: Present: supple, normal ROM - Respiratory Respiratory effort: normal Respiratory: bilateral: CTA, rales, rhonchi - Cardiovascular Rhythm: regular Heart Sounds: Present: S1 & S2. Absent: rub, click - Extremities Extremities: no ischemia, pulses symmetrical, No edema Extremity abnormal: edema Peripheral Pulses: within normal limits - Abdominal General gastrointestinal: Present: soft, non-tender, non-distended, normal bowel sounds Female genitourinary: Present: normal - Rectal Rectal Exam: deferred - Integumentary Integumentary: Present: clear, warm, dry - Musculoskeletal Musculoskeletal: gait normal, strength equal bilaterally - Psychiatric Psychiatric: appropriate mood/affect, intact judgment & insight - Neurologic Neurologic: CNII-XII intact, moves all extremities Results - Lab Results 01/19/17 03:46 01/19/17 13:02 Most recent lab results Calcium 9.0 mg/dL (8.4-10.2) 01/19/17 13:02 Magnesium 1.90 mg/dL (1.7-2.3) 01/19/17 13:02 Assessment and Plan Impression: * CIERRA on CKD * NSTEMI * Cardiomyopathy--EF 10% * S/P PEA arrest * Junctional rhythm Plan: * events noted, ok to proceed with [facility] steven in setting of Cardiomyopathy * daily lytes, high risk on ATN s/p arrest * strict i/os * daily lytes * avoid nephrotoxins * keep MAP >65 * vasopressors prn
[2017-01-19 17:41] LABS: ISTAT Base Excess 4; ISTAT PCO2 42.7 (35-45); ISTAT PH 7.425 (7.35-7.45); ISTAT PO2 189 (80-105); ISTAT SO2 100; ISTAT TCO2 29
--- NOTE | 2017-01-19 17:56 | Event Note ---
Date: 01/19/17 Procedure: Endotracheal intubation Ind: Acute respiratory failure Description: Patient bagged with 100% BMV during code. After ROSC she was clenching teeth. Gave 20mg of IV Etomidate. DL x 2 with MAC 4, grade I view. There was gastric contents in back of throat, thoroughly suctioned. 7.5 ETT placed, secured 24 cm lip. Good bilateral BS and good color change with ET CO2. Sat of 100% after procedure. Tube above ariella on CXR.
--- NOTE | 2017-01-19 18:01 | Consultation ---
History of Present Illness Consult date: 01/19/17 Requesting physician: JUMA WALSH Reason for consult: dyspnea History of present illness: 71 yo admitted with increased SOB, CHF, new LVEF of 10%. Did not respond well to diuretics so transferred to ICU yesterday, placed on Dobutamine. After bath this AM had bradycardia leading to PEA arrest. Had ROSC with Epi. Intubated ( see separate note). I was unable to interview her prior to code so further hx not available. Active Medications Acetaminophen (Tylenol) 650 mg PO Q4H PRN PRN Reason: Pain MILD(1-3)/Fever >100.5/LIMA Last Admin: 01/18/17 03:23 Dose: 650 mg Aspirin (Baby Aspirin) 81 mg PO QDAY [facility] Last Admin: 01/19/17 09:11 Dose: 81 mg Bisacodyl (Dulcolax) 10 mg PA QDAY PRN PRN Reason: Constipation unrelieved by MOM Carvedilol (Coreg) 25 mg PO BID [facility] Last Admin: 01/19/17 09:10 Dose: 25 mg Dextrose (D50w (25gm)) 50 ml IV PRN PRN PRN Reason: Hypoglycemia Famotidine (Pepcid) 20 mg PO BID [facility] Furosemide (Lasix) 40 mg IV 0600,1800 [facility] Last Admin: 01/19/17 05:53 Dose: 40 mg Heparin Sodium (Porcine) (Heparin) 5,000 unit SUB-Q Q12HR [facility] Last Admin: 01/19/17 14:43 Dose: 5,000 unit Hydromorphone HCl (Dilaudid) 0.5 mg IV Q3H PRN PRN Reason: Pain , Severe (7-10) Hydrophilic Ointment (Vaseline Lip Therapy) 1 applic TP Q2HR PRN PRN Reason: Dry Lips Propofol (Diprivan 10 Mg/Ml) 1,000 mg in 100 mls @ 4.26 mls/hr IV TITR ALANNA; 5 MCG/KG/MIN PRN Reason: Protocol Last Admin: 01/19/17 13:00 Dose: 5 mcg/kg/min, 4.26 mls/hr Insulin Aspart (Novolog) 0 units SUB-Q Q6HR ALANNA PRN Reason: Protocol Metoclopramide HCl (Reglan) 10 mg IV Q8H PRN PRN Reason: Nausea And Vomiting Multi-Ingred Cream/Lotion/Oil/Oint (Artificial Tears Ophth Oint) 1 applic OU Q4HR PRN PRN Reason: Dry Eye(s) Oxycodone/Acetaminophen (Percocet 5/325) 1 tab PO Q6H PRN PRN Reason: Pain, Moderate (4-6) Simvastatin (Zocor) 10 mg PO QHS [facility]AN[facility] Last Admin: 01/18/17 21:51 Dose: 10 mg Sodium Chloride (Sodium Chloride Flush Syringe 10 Ml) 10 ml IV PRN PRN PRN Reason: LINE FLUSH Zolpidem Tartrate (Ambien) 5 mg PO QHS PRN PRN Reason: Insomnia Past History Past Medical History: arrhythmia, CAD, heart failure, hypertension, hyperlipidemia, renal failure Past Surgical History: Other (osteoarthritis knees) Social history: Lives alone. denies: smoking, alcohol abuse, IV drug use Family history: diabetes, hypertension Medications and Allergies Allergies Allergy/AdvReac Type Severity Reaction Status Date / Time Penicillins Allergy Swelling Verified 01/22/16 12:36 Home Medications Medication Instructions Recorded Confirmed Last Taken Type Ascorbic Acid [Vitamin C] 500 mg PO DAILY 12/01/15 01/15/17 01/18/16 History Mv, Min #36/Iron,Carbonyl/FA 1 mg PO DAILY 12/01/15 01/15/17 01/18/16 History [Geritol Complete Tablet] Rescue-3 Fatty Acids [Fish Oil] 1,200 mg PO DAILY 12/01/15 01/15/17 01/18/16 History Potassium Chloride 40 meq PO QDAY 01/19/16 01/15/17 01/18/16 History Ranitidine HCl [Acid [place]] 150 mg PO BID 01/19/16 01/15/17 01/18/16 History Valsartan [Diovan] 80 mg PO DAILY 01/19/16 01/15/17 01/18/16 History Furosemide [Lasix TAB] 40 mg PO 0600,1800 #60 tablet 01/26/16 01/15/17 Unknown Rx Spironolactone [Aldactone] 25 mg PO QDAY #30 tablet 01/26/16 01/15/17 Unknown Rx Furosemide [Lasix TAB] 80 mg PO QDAY 01/15/17 01/15/17 Unknown History Furosemide [Lasix] 20 mg PO QDAY 01/15/17 01/15/17 Unknown History Active Meds: Active Medications Acetaminophen (Tylenol) 650 mg PO Q4H PRN PRN Reason: Pain MILD(1-3)/Fever >100.5/LIMA Last Admin: 01/18/17 03:23 Dose: 650 mg Aspirin (Baby Aspirin) 81 mg PO QDAY [facility] Last Admin: 01/19/17 09:11 Dose: 81 mg Bisacodyl (Dulcolax) 10 mg PA QDAY PRN PRN Reason: Constipation unrelieved by MOM Carvedilol (Coreg) 25 mg PO BID [facility] Last Admin: 01/19/17 09:10 Dose: 25 mg Dextrose (D50w (25gm)) 50 ml IV PRN PRN PRN Reason: Hypoglycemia Famotidine (Pepcid) 20 mg PO BID [facility] Furosemide (Lasix) 40 mg IV 0600,1800 [facility] Last Admin: 01/19/17 05:53 Dose: 40 mg Heparin Sodium (Porcine) (Heparin) 5,000 unit SUB-Q Q12HR [facility] Last Admin: 01/19/17 14:43 Dose: 5,000 unit Hydromorphone HCl (Dilaudid) 0.5 mg IV Q3H PRN PRN Reason: Pain , Severe (7-10) Hydrophilic Ointment (Vaseline Lip Therapy) 1 applic TP Q2HR PRN PRN Reason: Dry Lips Propofol (Diprivan 10 Mg/Ml) 1,000 mg in 100 mls @ 4.26 mls/hr IV TITR ALANNA; 5 MCG/KG/MIN PRN Reason: Protocol Last Admin: 01/19/17 13:00 Dose: 5 mcg/kg/min, 4.26 mls/hr Insulin Aspart (Novolog) 0 units SUB-Q Q6HR [facility] PRN Reason: Protocol Metoclopramide HCl (Reglan) 10 mg IV Q8H PRN PRN Reason: Nausea And Vomiting Multi-Ingred Cream/Lotion/Oil/Oint (Artificial Tears Ophth Oint) 1 applic OU Q4HR PRN PRN Reason: Dry Eye(s) Oxycodone/Acetaminophen (Percocet 5/325) 1 tab PO Q6H PRN PRN Reason: Pain, Moderate (4-6) Simvastatin (Zocor) 10 mg PO QHS [facility] Last Admin: 01/18/17 21:51 Dose: 10 mg Sodium Chloride (Sodium Chloride Flush Syringe 10 Ml) 10 ml IV PRN PRN PRN Reason: LINE FLUSH Zolpidem Tartrate (Ambien) 5 mg PO QHS PRN PRN Reason: Insomnia Review of Systems ROS unobtainable: due to endotracheal tube Physical Examination Vital signs: Vital Signs Temp Pulse 98.6 F 140 H 01/15/17 08:42 01/15/17 08:42 General appearance: other (sedated, critically ill) Eyes: non-icteric ENT: oropharynx moist Neck: supple Effort: normal Ascultation: Bilateral: other (coarse, equal BS bilaterally) Cardiovascular: irregular rhythm (no mrg) Gastrointestinal: normoactive bowel sounds, soft, other (obese) Integumentary: normal Extremities: no cyanosis, pink and warm, edema (2+ bilateral LE edema) Musculoskeletal: no deformities unable to assess other (unable to assess) Results - Laboratory Findings CBC and BMP: 01/19/17 03:46 01/19/17 13:02 ABG POC ABG pH 7.425 (7.35-7.45) 01/19/17 15:48 POC ABG pCO2 42.7 (35-45) 01/19/17 15:48 POC ABG pO2 189 (80-105) H 01/19/17 15:48 POC ABG HCO3 28.0 01/19/17 15:48 POC ABG Total CO2 29 01/19/17 15:48 POC ABG O2 Sat 100 01/19/17 15:48 Abnormal lab findings: Abnormal Labs 01/15/17 01/15/17 01/15/17 17:45 22:06 23:40 RDW 18.6 H Plt Count 114 L Lymph % (Auto) Mercer % (Auto) Eos % (Auto) Baso % (Auto) Lymph # Seg Neutrophils % Seg Neuts % (Manual) 82.0 H Lymphocytes % (Manual) 7.0 L Lymphocytes # (Manual) 0.4 L POC ABG pO2 Sodium Potassium Chloride Carbon Dioxide BUN Creatinine Glucose POC Glucose 147 H 135 H Total Bilirubin CK-MB (CK-2) CK-MB (CK-2) Rel Index Total Protein Albumin 01/15/17 01/16/17 01/16/17 23:40 03:44 08:49 RDW Plt Count Lymph % (Auto) Mercer % (Auto) Eos % (Auto) Baso % (Auto) Lymph # Seg Neutrophils % Seg Neuts % (Manual) Lymphocytes % (Manual) Lymphocytes # (Manual) POC ABG pO2 Sodium 132 L Potassium 5.1 H Chloride 95.5 L Carbon Dioxide 20 L BUN 36 H Creatinine Glucose 128 H POC Glucose 117 H 126 H Total Bilirubin CK-MB (CK-2) CK-MB (CK-2) Rel Index Total Protein Albumin 01/16/17 01/16/17 01/16/17 08:56 08:56 12:06 RDW 19.2 H Plt Count Lymph % (Auto) 6.6 L Mercer % (Auto) 12.0 H Eos % (Auto) 5.8 H Baso % (Auto) 1.9 H Lymph # 0.3 L Seg Neutrophils % 73.7 H Seg Neuts % (Manual) Lymphocytes % (Manual) Lymphocytes # (Manual) POC ABG pO2 Sodium 132 L Potassium Chloride 95.1 L Carbon Dioxide 19 L BUN 36 H Creatinine 1.3 H Glucose 129 H POC Glucose 172 H Total Bilirubin 1.40 H CK-MB (CK-2) CK-MB (CK-2) Rel Index Total Protein 6.2 L Albumin 3.1 L 01/16/17 01/17/17 01/17/17 22:34 05:29 05:29 RDW 19.2 H Plt Count Lymph % (Auto) 5.9 L Mercer % (Auto) 10.8 H Eos % (Auto) Baso % (Auto) Lymph # 0.4 L Seg Neutrophils % 80.1 H Seg Neuts % (Manual) Lymphocytes % (Manual) Lymphocytes # (Manual) POC ABG pO2 Sodium 131 L Potassium 5.3 H Chloride 94.8 L Carbon Dioxide 21 L BUN 39 H Creatinine 1.4 H Glucose 196 H POC Glucose 210 H Total Bilirubin CK-MB (CK-2) CK-MB (CK-2) Rel Index Total Protein Albumin 01/17/17 01/17/17 01/17/17 07:39 17:39 22:45 RDW Plt Count Lymph % (Auto) Mercer % (Auto) Eos % (Auto) Baso % (Auto) Lymph # Seg Neutrophils % Seg Neuts % (Manual) Lymphocytes % (Manual) Lymphocytes # (Manual) POC ABG pO2 Sodium Potassium Chloride Carbon Dioxide BUN Creatinine Glucose POC Glucose 198 H 208 H 223 H Total Bilirubin CK-MB (CK-2) CK-MB (CK-2) Rel Index Total Protein Albumin 01/18/17 01/18/17 01/18/17 05:07 08:32 12:24 RDW Plt Count Lymph % (Auto) Mercer % (Auto) Eos % (Auto) Baso % (Auto) Lymph # Seg Neutrophils % Seg Neuts % (Manual) Lymphocytes % (Manual) Lymphocytes # (Manual) POC ABG pO2 Sodium 129 L Potassium 5.2 H Chloride 92.0 L Carbon Dioxide BUN 41 H Creatinine 1.5 H Glucose 228 H POC Glucose 236 H 230 H Total Bilirubin CK-MB (CK-2) CK-MB (CK-2) Rel Index Total Protein Albumin 01/18/17 01/19/17 01/19/17 16:00 03:46 03:46 RDW 18.9 H Plt Count Lymph % (Auto) Mercer % (Auto) Eos % (Auto) Baso % (Auto) Lymph # Seg Neutrophils % Seg Neuts % (Manual) Lymphocytes % (Manual) Lymphocytes # (Manual) POC ABG pO2 Sodium 128 L Potassium Chloride 92.3 L Carbon Dioxide 21 L BUN 40 H Creatinine 1.4 H Glucose 178 H POC Glucose 253 H Total Bilirubin CK-MB (CK-2) CK-MB (CK-2) Rel Index Total Protein Albumin 01/19/17 01/19/17 13:02 15:48 RDW Plt Count Lymph % (Auto) Mercer % (Auto) Eos % (Auto) Baso % (Auto) Lymph # Seg Neutrophils % Seg Neuts % (Manual) Lymphocytes % (Manual) Lymphocytes # (Manual) POC ABG pO2 189 H Sodium 131 L Potassium Chloride 92.8 L Carbon Dioxide BUN 39 H Creatinine 1.4 H Glucose 159 H POC Glucose Total Bilirubin CK-MB (CK-2) 4.1 H CK-MB (CK-2) Rel Index 4.1 H Total Protein Albumin - Diagnostic Findings Chest x-ray: report reviewed, image reviewed (cardiomegaly, + CHF) Assessment and Plan Imp: 1. Dilated CMP 2. Acute systolic CHF 3. CIERRA 4. Acute respiratory failure, hypoxia 5. Morbid obesity 6. s/p PEA arrest; may have aspirated Rec: 1. Vent protocol; post-intubation ABG looks good except wean FiO2 2. PICC 3. Amiodarone drip started 4. Diuresis as tolerated 5. DVT PPx 6. Minimize sedation to allow accurate post-code neuro assessment 7. Further plans pending clinical course No family present. CCT 35 minutes
[2017-01-19] MEDS: NOVOLOG SUB-Q SCH (18:04)
[2017-01-19] MEDS ORDERED: ADRENALIN ONE (22:11)
--- NOTE | 2017-01-19 22:53 | XRay Report ---
FINAL REPORT PROCEDURE: XR ABDOMEN 1V AP TECHNIQUE: AP supine portable radiograph of the abdomen was obtained at 01/19/2017 21:59 (EST) . HISTORY: tube placement COMPARISON: No prior studies are available for comparison. FINDINGS: Bowel gas pattern: Nonspecific. Masses or calcifications: None. Bony structures: Normal. Other: Feeding tube is terminating in the stomach. IMPRESSION: Feeding tube is terminating in the stomach
[2017-01-19] MEDS: PEPCID PO SCH (23:48)
[2017-01-19] MEDS: ZOCOR PO SCH (23:48)
[2017-01-20] MEDS: HEPARIN SUB-Q SCH ×3 (00:44→21:24)
[2017-01-20] MEDS: NOVOLOG SUB-Q SCH ×4 (00:45→17:06)
[2017-01-20] MEDS: LASIX IV SCH ×2 (06:15→17:03)
[2017-01-20 06:19] LABS: ISTAT Base Excess 2; ISTAT HCO3 26.3; ISTAT PCO2 39.8 (35-45); ISTAT PH 7.429 (7.35-7.45); ISTAT PO2 67 (80-105); ISTAT SO2 94; ISTAT TCO2 28
[2017-01-20 06:39] LABS: Hematocrit 40.6 % (30.3-42.9); Hemoglobin 13.3 gm/dl (10.1-14.3); Mean Corpuscular HGB Conc 33 % (30-34); Mean Corpuscular Hemoglobin 29 pg (28-32); Mean Corpuscular Volume 88 fl (79-97); Platelet Count 131 K/mm3 (140-440); Red Blood Count 4.63 M/mm3 (3.65-5.03); Red Cell Distribution Width 18.9 % (13.2-15.2); White Blood Count 11.5 K/mm3 (4.5-11.0)
[2017-01-20 06:48] LABS: BUN/Creatinine Ratio 28.46; Chloride 91.4 mmol/L (98-107); Potassium 3.8 mmol/L (3.6-5.0)
[2017-01-20] MEDS: PEPCID PO SCH ×2 (09:15→21:24)
[2017-01-20] MEDS: BABY ASPIRIN PO SCH (09:15)
[2017-01-20] MEDS: COREG PO SCH ×2 (09:15→21:25)
[2017-01-20] MEDS: DIPRIVAN 10 MG/ML 1,000 MG/100 ML BOTTLE IV SCH (09:18)
--- NOTE | 2017-01-20 09:22 | XRay Report ---
AP chest x-ray. History: Followup respiratory failure. Findings: Cardiomegaly is unchanged with mild increase in vascular congestion. Blunting of the right costophrenic angle is present. Endotracheal tube is in good position. Impression: Mild CHF, worse compared to yesterday's study.
--- NOTE | 2017-01-20 09:33 | Progress Note ---
Subjective Principal diagnosis: Chf exacerbation Interval history: Time of evaluation 12:25 PM Patient was seen today for follow-up on multiple renal related issues Events of this hospitalization noted Patient remains intubated Vitals labs intake output and medications were reviewed Social history: Reviewed Family history: Reviewed Allergy: Reviewed Physical examination Vitals: Reviewed HEENT: Oral mucosa moist Neck: Supple no JVD Chest: Bilateral clear to auscultation no crackles rales or wheezes Heart: Regular rate and rhythm S1 and S2 heard Abdomen: Soft nontender no voluntary guarding rigidity rebound Extremity: Minimal edema dry skin Dermatology; dry skin no edema Neurological alert awake Assessment and plan Renal insufficiency creatinine is currently at around 1.3 Mild hyponatremia to follow currently at 129 we'll check osmolality and uric acid tomorrow Currently she is on Lasix that needs to be monitored closely Her carvedilol dose may need to be reduced if okay with cardiology as her blood pressure has been on the low side these consider that Hypertension appears to be stable at this time Avoid nephrotoxic medication Risk of radiocontrast nephropathy moderate to high No ultrasound has been obtained so far We'll continue to follow and make recommendation from renal standpoint Objective - Vital Signs Vital signs: Vital Signs - 12hr 01/19/17 01/19/17 01/19/17 21:40 21:50 22:00 Temperature Pulse Rate 97 H 98 H 96 H Pulse Rate [ Apical] Respiratory 12 18 18 Rate Blood Pressure 121/82 129/84 111/78 O2 Sat by Pulse 95 97 96 Oximetry 01/19/17 01/19/17 01/19/17 22:10 22:20 22:24 Temperature Pulse Rate 86 72 86 Pulse Rate [ Apical] Respiratory 16 18 18 Rate Blood Pressure 122/89 118/76 118/76 O2 Sat by Pulse 97 98 99 Oximetry 01/19/17 01/19/17 01/19/17 22:30 22:40 22:50 Temperature Pulse Rate 97 H 98 H 98 H Pulse Rate [ Apical] Respiratory 18 18 17 Rate Blood Pressure 127/80 128/79 114/81 O2 Sat by Pulse 96 97 99 Oximetry 01/19/17 01/19/17 01/19/17 23:00 23:10 23:20 Temperature Pulse Rate 77 80 100 H Pulse Rate [ Apical] Respiratory 17 18 18 Rate Blood Pressure 125/75 126/74 125/79 O2 Sat by Pulse 97 98 97 Oximetry 01/19/17 01/19/17 01/19/17 23:30 23:40 23:43 Temperature Pulse Rate 82 66 Pulse Rate [ Apical] Respiratory 10 L 13 18 Rate Blood Pressure 113/79 134/80 O2 Sat by Pulse 95 98 Oximetry 01/19/17 01/19/17 01/19/17 23:48 23:49 23:50 Temperature 98.4 F Pulse Rate 100 H 101 H Pulse Rate [ Apical] Respiratory 10 L Rate Blood Pressure 113/79 125/81 O2 Sat by Pulse 99 Oximetry 01/20/17 01/20/17 01/20/17 00:00 00:10 00:20 Temperature Pulse Rate 102 H 101 H 99 H Pulse Rate [ 90 Apical] Respiratory 18 18 20 Rate Blood Pressure 137/89 140/87 130/88 O2 Sat by Pulse 99 99 97 Oximetry 01/20/17 01/20/17 01/20/17 00:30 00:40 00:50 Temperature Pulse Rate 75 90 90 Pulse Rate [ Apical] Respiratory 15 18 22 Rate Blood Pressure 130/82 136/85 138/94 O2 Sat by Pulse 97 97 98 Oximetry 01/20/17 01/20/17 01/20/17 01:00 01:10 01:20 Temperature Pulse Rate 76 81 77 Pulse Rate [ Apical] Respiratory 21 18 14 Rate Blood Pressure 138/94 116/67 118/87 O2 Sat by Pulse 99 99 98 Oximetry 01/20/17 01/20/17 01/20/17 01:30 01:40 01:49 Temperature Pulse Rate 77 77 92 H Pulse Rate [ Apical] Respiratory 16 11 L Rate Blood Pressure 128/83 114/67 114/67 O2 Sat by Pulse 97 95 98 Oximetry 01/20/17 01/20/17 01/20/17 01:50 02:00 02:10 Temperature Pulse Rate 79 84 80 Pulse Rate [ Apical] Respiratory 18 18 18 Rate Blood Pressure 116/77 116/77 119/78 O2 Sat by Pulse 98 98 97 Oximetry 01/20/17 01/20/17 01/20/17 02:20 02:30 02:40 Temperature Pulse Rate 81 81 79 Pulse Rate [ Apical] Respiratory 20 20 19 Rate Blood Pressure 110/74 110/74 127/82 O2 Sat by Pulse 98 98 99 Oximetry 01/20/17 01/20/17 01/20/17 02:50 03:00 03:10 Temperature 97.8 F Pulse Rate 79 79 84 Pulse Rate [ Apical] Respiratory 20 17 18 Rate Blood Pressure 124/75 115/74 111/79 O2 Sat by Pulse 97 98 98 Oximetry 01/20/17 01/20/17 01/20/17 03:20 03:30 03:40 Temperature Pulse Rate 80 78 76 Pulse Rate [ Apical] Respiratory 18 20 17 Rate Blood Pressure 105/68 123/80 119/79 O2 Sat by Pulse 98 97 98 Oximetry 01/20/17 01/20/17 01/20/17 03:50 04:00 04:10 Temperature Pulse Rate 80 81 79 Pulse Rate [ 108 H Apical] Respiratory 14 20 17 Rate Blood Pressure 109/82 106/79 126/81 O2 Sat by Pulse 98 98 98 Oximetry 01/20/17 01/20/17 01/20/17 04:20 04:30 04:40 Temperature Pulse Rate 80 80 81 Pulse Rate [ Apical] Respiratory 16 13 16 Rate Blood Pressure 126/83 106/79 133/79 O2 Sat by Pulse 97 97 97 Oximetry 01/20/17 01/20/17 01/20/17 04:50 05:00 05:10 Temperature Pulse Rate 82 80 79 Pulse Rate [ Apical] Respiratory 17 18 19 Rate Blood Pressure 111/81 112/85 128/84 O2 Sat by Pulse 97 97 97 Oximetry 01/20/17 01/20/17 01/20/17 05:20 05:30 05:40 Temperature Pulse Rate 79 78 75 Pulse Rate [ Apical] Respiratory 17 18 18 Rate Blood Pressure 118/68 102/70 109/68 O2 Sat by Pulse 97 96 95 Oximetry 01/20/17 01/20/17 01/20/17 05:50 05:55 06:00 Temperature Pulse Rate 108 H 108 H 111 H Pulse Rate [ Apical] Respiratory 18 12 Rate Blood Pressure 125/72 109/68 113/74 O2 Sat by Pulse 97 96 95 Oximetry 01/20/17 01/20/17 01/20/17 06:10 06:20 06:30 Temperature Pulse Rate 110 H 109 H 108 H Pulse Rate [ Apical] Respiratory 18 13 15 Rate Blood Pressure 110/73 115/76 122/71 O2 Sat by Pulse 98 94 95 Oximetry 01/20/17 01/20/17 01/20/17 06:40 06:50 07:00 Temperature 101.0 F H Pulse Rate 109 H 110 H 110 H Pulse Rate [ Apical] Respiratory 18 18 18 Rate Blood Pressure 123/79 114/73 123/78 O2 Sat by Pulse 93 93 94 Oximetry 01/20/17 01/20/17 01/20/17 07:10 07:20 07:30 Temperature Pulse Rate 111 H 110 H 107 H Pulse Rate [ Apical] Respiratory 12 11 L 11 L Rate Blood Pressure 108/77 119/72 115/71 O2 Sat by Pulse 94 95 95 Oximetry 01/20/17 01/20/17 01/20/17 07:40 07:50 08:00 Temperature Pulse Rate 109 H 105 H 108 H Pulse Rate [ Apical] Respiratory 14 11 L 13 Rate Blood Pressure 115/71 112/69 111/72 O2 Sat by Pulse 97 95 93 Oximetry 01/20/17 01/20/17 08:10 09:15 Temperature Pulse Rate 106 H 107 H Pulse Rate [ Apical] Respiratory 12 Rate Blood Pressure 115/67 121/62 O2 Sat by Pulse 100 Oximetry - Lab 01/20/17 04:00 01/20/17 05:45 Most recent lab results Calcium 9.0 mg/dL (8.4-10.2) 01/20/17 05:45 Magnesium 1.90 mg/dL (1.7-2.3) 01/19/17 13:02
--- NOTE | 2017-01-20 09:54 | Progress Note ---
Assessment and Plan S/p PEA cardiorespiratory arrest 01/19 Intubated Ade negative for AMI s/p code; ECG with no ischemic changes Dobutamine gtt d/c'd s/p IV amio 150mg bolus x 1. Hold amio gtt at this time given return of rhythm and rate to baseline and slightly prolonged QT interval Acute on chronic biventricular systolic heart failure Net neg 2.1L. Cont strict I/O continue IV lasix 40 BID continue carvedilol 25 bid. ACEI/ARB held in setting of CIERRA. ? Aspiration PNA new leukocytosis and fever this AM. CIERRA / Hyperkalemia aldactone held monitor Hyponatremia monitor Accelerated junction arrhythmia vs sinus with long TX interval Per EP, QRS vector same as office EKG unlikely VT Also with intermittent SR with prolonged TX v. IVCD v. idioventricular rhythm noted on tele. continue carvedilol Cardiomyopathy EF 10 - 15% NSVT Diabetes Hypertension Hyperlipidemia History of Breast CA Obesity With new leukocytosis and fever this AM. Consider cultures per primary/ pulmonary. Cont present cardiac regimen. The patient has been seen in conjunction with Dr. Campos who agrees with the assessment and plan of care. Subjective Date of service: 01/20/17 Principal diagnosis: Chf exacerbation Interval history: Pt intubated, sedated. S/p PEA cardiorespiratory arrest yesterday. Remains in apparent junctional tachycardia with IVCD on tele, BPs stable. Brief runs of NSVT noted overnight on tele. Objective Last Vital Signs Temp 101.0 F H 01/20/17 07:00 Pulse 106 H 01/20/17 09:20 Resp 17 01/20/17 09:20 BP 119/73 01/20/17 09:20 Pulse Ox 93 01/20/17 09:20 - Physical Examination HEENT: Positive: PERRL, EOMI, Other (intubated & sedated ) Neck: Positive: neck supple, trachea midline Cardiac: Positive: Regular Rate, S1/S2 Lungs: Positive: Decreased Breath Sounds, Ventilated Respirations Neuro: Positive: Other (intubated & sedated) Abdomen: Positive: Unremarkable, Soft, Active Bowel Sounds Skin: Negative: Rash, Suspicious Lesions Extremities: Present: edema (trace BLE ), warm, Other (chronic venous stasis changes) - Labs and Meds Cardiac Enzymes 01/19/17 Range/Units 13:02 CK-MB (CK-2) 4.1 H (0.0-4.0) ng/mL CBC 01/20/17 Range/Units 04:00 WBC 11.5 H (4.5-11.0) K/mm3 RBC 4.63 (3.65-5.03) M/mm3 Hgb 13.3 (10.1-14.3) gm/dl Hct 40.6 (30.3-42.9) % Plt Count 131 L (140-440) K/mm3 Comprehensive Metabolic Panel 01/19/17 01/20/17 Range/Units 13:02 05:45 Sodium 131 L 129 L (137-145) mmol/L Potassium 4.2 3.8 (3.6-5.0) mmol/L Chloride 92.8 L 91.4 L (98-107) mmol/L Carbon Dioxide 22 26 (22-30) mmol/L BUN 39 H 37 H (7-17) mg/dL Creatinine 1.4 H 1.3 H (0.7-1.2) mg/dL Glucose 159 H 89 (65-100) mg/dL Calcium 9.0 9.0 (8.4-10.2) mg/dL - Imaging and Cardiology EKG: report reviewed (Tachycardia of 128/min Junctional rhythm) Stress echo: report reviewed (Cardiac PET 11/11: very small mild anterior, anteroapical mild reversible defect. EF stress 58%) Echo: report reviewed (ECHO 11/16: TDS, EF cannot be determined due to poor image quality, ) Cardiac cath: report reviewed ([facility] 06/07: LM: patent, LCX: diffuse disease, LAD: diffuse disease, RCA: diffuse disease, mid 40%)
[2017-01-20] MEDS: TYLENOL PO PRN (10:14)
[2017-01-20 10:46] LABS: Bacteria,Urine 1+ /HPF (Negative); Bilirubin,Urine NEG (Negative); Blood,Urine MOD (Negative); Ketones,Urine NEG (Negative); Leukocyte Esterase,Urine MOD (Negative); Nitrite,Urine NEG (Negative); Protein,Urine <15 mg/dL mg/dL (Negative); Urobilinogen,Urine < 2.0 mg/dL (<2.0)
--- NOTE | 2017-01-20 12:17 | Progress Note ---
Assessment and Plan Assessment and plan: Patient is 71 yo woman who lives alone but has partial functional quadriplegia/ wheelchair bound (mostly uses a walker to the bathroom) with a h/o chronic hypoxic respiratory failure on 2 L oxygen at home, right sided breast cancer, morbid obesity bmi 52.1, CHF, nonobstructive coronary artery disease and dyslipidemia who presented to [facility] emergency room on 01/15/2017 with complaints of shortness of breath and rapid heartbeat. EKG showed tachyarrhythmia, diagnosed as accelerated junctional per cardiology. Chest x-ray was read as cardiomegaly with pulmonary vascular congestion more pronounced compared to previous study, probable CHF. 01/15/2017 2D echocardiogram reported as global left ventricular systolic function is severely decreased, estimated EF is 10-15%, left atrium mildly dilated, right ventricle is mild to moderately dilated, right ventricular global systolic function is moderately reduced, right atrium is mild to moderate dilated, trace AR, no , mitral annular calcification, mild MR, no ms, moderate TR, right ventricular systolic function is calculated at 48mmhg, there is small pericardial effusion which does not appear to be hemodynamically significant, large left pleural effusion is present. -Acute on chronic systolic heart failure, chronic and worsening: Cardiology is following, request patient be transferred to the ICU for worsening CHF, treated with Diuresis, add ASA -Accelerated junction arrhythmia, uncontrolled: Cardiology is following, they request running specialist to evaluate -Acute renal failure, vasomotor nephropathy present on admission: Consulted nephrology -Hyperkalemia, mild, will restart her home insulin: monitor closely, still on Diovan per Dr. Cedeño, it appears benefits>risk at this point, await Nephrology evaluation; she had already received dose today. Will stop -Hyponatremia due to hyperglycemia: Control blood sugars -Uncontrolled type 2 diabetes mellitus: Restart home regimen -Chronic hypoxic respiratory failure due to CHF: Continue oxygen -DVT prophylaxis: change sq lovenox to sq heparin due to renal impairment full code 01/18/17: Patient was transferred to the ICU in the evening and started on Milrinone drip after EP re-evaluation 01/19/17: I saw patient the morning prior to the cardiac arrest, she was doing better without any new complaints and she felt like the swelling had gotten better, then ZECHARIAH AGUILAR called at [phone]. Email Marketer, Dr. Rios was close and ran the code. It appears patient was being washed up and she had bradycardia down to PEA, ACLS and chest compressions were started, patient pulse was restored with 2 doses of epinephrine. When Dr. Rios was intubating, he noticed gastric particles in the back of her throat; therefore, patient most likely aspirated, became hypoxic and went into PEA. During the CODE BLUE, she had more pronounced wide complex tachycardia; therefore, I ordered Primacor to be discontinued. Cardiology Dr. Campos came to the bedside and gave her Amiodarone 150 mg IV bolus 1 f(drip not start). D/w daughter Olivia, listed next of kin at [phone], ==>continue full code 01/20/17: She spiked a fever, trach sputum cultures has Preliminary growth of gram-positive cocci in pairs and clusters, started IV vancomycin and IV Levaquin , she is allergic to penicillin, consulted infectious disease physician, ordered blood cultures 2 sets and urinalysis, reviewed chest x-ray. She most likely has aspiration pneumonitis, may need to be on clindamycin also for anaerobic coverage The high probability of a clinically significant, sudden or life threatening deterioration of the [neurologic,cardiac] system(s) required my full and direct attention, intervention and personal management. The aggregate critical care time was [ 33 ] minutes. This time is in addition to time spent performing reported procedures but includes the following: [x] Data Review and interpretation [x] Patient assessment and monitoring of vital signs [x] Documentation [x] Medication orders and management History Interval history: Patient seen and examined. Follow up on cardiac arrest resolved; however, she is intubated and sedated. Overnight uneventful except that she spiked a fever this morning. Nursing notes reviewed. Hospitalist Physical - Physical exam Narrative exam: GEN: ill appearing bmi 52.1 intubated and sedated HEENT: ET tube in place NECK: SUPPLE, NO THYROMEGALY, + JVD, NO LAD CVS: irregular irregular, NORMAL S1S2 LUNGS/CHEST: Coarse breath sounds bilaterally NORMAL CHEST EXPANSION B, adequate AIR ENTRY B ABD: SOFT, distended GBS, NO REBOUND OR GUARDING EXT/SKIN: SIGNIFICANT EDEMA justino MSK: Spontaneous movement X 4 EXTREMITIES NEURO: CN 2-12 GROSSLY INTACT, sedated PSY: Sedated - Constitutional Vitals: Temp Pulse Resp BP Pulse Ox 99.3 F 122 H 19 87/56 94 01/20/17 11:32 01/20/17 11:00 01/20/17 11:00 01/20/17 11:00 01/20/17 10:50 General appearance: Present: no acute distress, well-nourished Results - Labs CBC & Chem 7: 01/20/17 04:00 01/20/17 05:45 Labs: Laboratory Last Values WBC 11.5 K/mm3 (4.5-11.0) H 01/20/17 04:00 RBC 4.63 M/mm3 (3.65-5.03) 01/20/17 04:00 Hgb 13.3 gm/dl (10.1-14.3) 01/20/17 04:00 Hct 40.6 % (30.3-42.9) 01/20/17 04:00 MCV 88 fl (79-97) 01/20/17 04:00 MCH 29 pg (28-32) 01/20/17 04:00 MCHC 33 % (30-34) 01/20/17 04:00 RDW 18.9 % (13.2-15.2) H 01/20/17 04:00 Plt Count 131 K/mm3 (140-440) L 01/20/17 04:00 Lymph % (Auto) 5.9 % (13.4-35.0) L 01/17/17 05:29 [place] % (Auto) 10.8 % (0.0-7.3) H 01/17/17 05:29 Eos % (Auto) 2.4 % (0.0-4.3) 01/17/17 05:29 Baso % (Auto) 0.8 % (0.0-1.8) 01/17/17 05:29 Lymph # 0.4 K/mm3 (1.2-5.4) L 01/17/17 05:29 [place] # 0.6 K/mm3 (0.0-0.8) 01/17/17 05:29 Eos # 0.1 K/mm3 (0.0-0.4) 01/17/17 05:29 Baso # 0.0 K/mm3 (0.0-0.1) 01/17/17 05:29 Add Manual Diff Complete 01/15/17 23:40 Total Counted 100 01/15/17 23:40 Seg Neutrophils % 80.1 % (40.0-70.0) H 01/17/17 05:29 Seg Neuts % (Manual) 82.0 % (40.0-70.0) H 01/15/17 23:40 Band Neutrophils % 3.0 % 01/15/17 23:40 Lymphocytes % (Manual) 7.0 % (13.4-35.0) L 01/15/17 23:40 Reactive Lymphs % (Man) 0 % 01/15/17 23:40 Monocytes % (Manual) 6.0 % (0.0-7.3) 01/15/17 23:40 Eosinophils % (Manual) 2.0 % (0.0-4.3) 01/15/17 23:40 Basophils % (Manual) 0 % (0.0-1.8) 01/15/17 23:40 Metamyelocytes % 0 % 01/15/17 23:40 Myelocytes % 0 % 01/15/17 23:40 Promyelocytes % 0 % 01/15/17 23:40 Blast Cells % 0 % 01/15/17 23:40 Nucleated RBC % Not Reportable 01/15/17 23:40 Seg Neutrophils # 4.8 K/mm3 (1.8-7.7) 01/17/17 05:29 Seg Neutrophils # Man 4.7 K/mm3 (1.8-7.7) 01/15/17 23:40 Band Neutrophils # 0.2 K/mm3 01/15/17 23:40 Lymphocytes # (Manual) 0.4 K/mm3 (1.2-5.4) L 01/15/17 23:40 Abs React Lymphs (Man) 0.0 K/mm3 01/15/17 23:40 Monocytes # (Manual) 0.3 K/mm3 (0.0-0.8) 01/15/17 23:40 Eosinophils # (Manual) 0.1 K/mm3 (0.0-0.4) 01/15/17 23:40 Basophils # (Manual) 0.0 K/mm3 (0.0-0.1) 01/15/17 23:40 Metamyelocytes # 0.0 K/mm3 01/15/17 23:40 Myelocytes # 0.0 K/mm3 01/15/17 23:40 Promyelocytes # 0.0 K/mm3 01/15/17 23:40 Blast Cells # 0.0 K/mm3 01/15/17 23:40 WBC Morphology Not Reportable 01/15/17 23:40 Hypersegmented Neuts Not Reportable 01/15/17 23:40 Hyposegmented Neuts Not Reportable 01/15/17 23:40 Hypogranular Neuts Not Reportable 01/15/17 23:40 Smudge Cells Not Reportable 01/15/17 23:40 Toxic Granulation Not Reportable 01/15/17 23:40 Toxic Vacuolation Not Reportable 01/15/17 23:40 Dohle Bodies Not Reportable 01/15/17 23:40 Pelger-Huet Anomaly Not Reportable 01/15/17 23:40 Yusuf Rods Not Reportable 01/15/17 23:40 Platelet Estimate Appears normal 01/15/17 23:40 Clumped Platelets 1+ 01/15/17 23:40 Plt Clumps, EDTA Not Reportable 01/15/17 23:40 Large Platelets Not Reportable 01/15/17 23:40 Giant Platelets Not Reportable 01/15/17 23:40 Platelet Satelliting Not Reportable 01/15/17 23:40 Plt Morphology Comment Not Reportable 01/15/17 23:40 RBC Morphology Not Reportable 01/15/17 23:40 Dimorphic RBCs Not Reportable 01/15/17 23:40 Polychromasia Not Reportable 01/15/17 23:40 Hypochromasia Not Reportable 01/15/17 23:40 Poikilocytosis Not Reportable 01/15/17 23:40 Anisocytosis 1+ 01/15/17 23:40 Microcytosis Not Reportable 01/15/17 23:40 Macrocytosis Not Reportable 01/15/17 23:40 Spherocytes Not Reportable 01/15/17 23:40 Pappenheimer Bodies Not Reportable 01/15/17 23:40 Sickle Cells Not Reportable 01/15/17 23:40 Target Cells Not Reportable 01/15/17 23:40 Tear Drop Cells Not Reportable 01/15/17 23:40 Ovalocytes Not Reportable 01/15/17 23:40 Helmet Cells Not Reportable 01/15/17 23:40 [place] Bodies Not Reportable 01/15/17 23:40 [place] Rings Not Reportable 01/15/17 23:40 Wally Cells Not Reportable 01/15/17 23:40 Bite Cells Not Reportable 01/15/17 23:40 Crenated Cell Not Reportable 01/15/17 23:40 Elliptocytes 1+ 01/15/17 23:40 Acanthocytes (Spur) Not Reportable 01/15/17 23:40 Rouleaux Not Reportable 01/15/17 23:40 Hemoglobin C Crystals Not Reportable 01/15/17 23:40 Schistocytes Not Reportable 01/15/17 23:40 Malaria parasites Not Reportable 01/15/17 23:40 Trevor Bodies Not Reportable 01/15/17 23:40 Hem Pathologist Commnt No 01/15/17 23:40 POC ABG pH 7.429 (7.35-7.45) 01/20/17 06:09 POC ABG pCO2 39.8 (35-45) 01/20/17 06:09 POC ABG pO2 67 (80-105) L 01/20/17 06:09 POC ABG HCO3 26.3 01/20/17 06:09 POC ABG Total CO2 28 01/20/17 06:09 POC ABG O2 Sat 94 01/20/17 06:09 POC ABG Base Excess 2 01/20/17 06:09 FiO2 35 % 01/20/17 06:09 Sodium 129 mmol/L (137-145) L 01/20/17 05:45 Potassium 3.8 mmol/L (3.6-5.0) 01/20/17 05:45 Chloride 91.4 mmol/L (98-107) L 01/20/17 05:45 Carbon Dioxide 26 mmol/L (22-30) 01/20/17 05:45 Anion Gap 15 mmol/L 01/20/17 05:45 BUN 37 mg/dL (7-17) H 01/20/17 05:45 Creatinine 1.3 mg/dL (0.7-1.2) H 01/20/17 05:45 Estimated GFR 49 ml/min 01/20/17 05:45 BUN/Creatinine Ratio 28.46 % 01/20/17 05:45 Glucose 89 mg/dL (65-100) 01/20/17 05:45 POC Glucose 84 (70-105) 01/20/17 06:10 Calcium 9.0 mg/dL (8.4-10.2) 01/20/17 05:45 Magnesium 1.90 mg/dL (1.7-2.3) 01/19/17 13:02 Total Bilirubin 1.40 mg/dL (0.1-1.2) H 01/16/17 08:56 AST 19 units/L (5-40) 01/16/17 08:56 ALT 11 units/L (7-56) 01/16/17 08:56 Alkaline Phosphatase 68 units/L (35-129) 01/16/17 08:56 Total Creatine Kinase 98 units/L (30-135) 01/19/17 13:02 CK-MB (CK-2) 4.1 ng/mL (0.0-4.0) H 01/19/17 13:02 CK-MB (CK-2) Rel Index 4.1 (0-4) H 01/19/17 13:02 Troponin T 0.022 ng/mL (0.00-0.029) 01/19/17 13:02 NT-Pro-B Natriuret Pep 8400 pg/mL (0-900) H 01/15/17 09:03 Total Protein 6.2 g/dL (6.3-8.2) L 01/16/17 08:56 Albumin 3.1 g/dL (3.9-5) L 01/16/17 08:56 Albumin/Globulin Ratio 1.0 % 01/16/17 08:56 Urine Color Yellow (Yellow) 01/20/17 09:34 Urine Turbidity Clear (Clear) 01/20/17 09:34 Urine pH 5.0 (5.0-7.0) 01/20/17 09:34 Ur Specific [place] 1.006 (1.003-1.030) 01/20/17 09:34 Urine Protein <15 mg/dl mg/dL (Negative) 01/20/17 09:34 Urine Glucose (UA) Neg mg/dL (Negative) 01/20/17 09:34 Urine Ketones Neg mg/dL (Negative) 01/20/17 09:34 Urine Blood Mod (Negative) 01/20/17 09:34 Urine Nitrite Neg (Negative) 01/20/17 09:34 Urine Bilirubin Neg (Negative) 01/20/17 09:34 Urine Urobilinogen < 2.0 mg/dL (<2.0) 01/20/17 09:34 Ur Leukocyte Esterase Mod (Negative) 01/20/17 09:34 Urine WBC (Auto) 15.0 /HPF (0.0-6.0) H 01/20/17 09:34 Urine RBC (Auto) 12.0 /HPF (0.0-6.0) 01/20/17 09:34 U Epithel Cells (Auto) 2.0 /HPF (0-13.0) 01/20/17 09:34 Urine Bacteria (Auto) 1+ /HPF (Negative) 01/20/17 09:34 Amorphous Crystals Few 01/20/17 09:34 Urine Yeast (Budding) 1+ /HPF 01/20/17 09:34
--- NOTE | 2017-01-20 12:38 | Progress Note ---
Assessment and Plan Imp: 1. Dilated CMP 2. Acute systolic CHF 3. CIERRA 4. Acute respiratory failure, hypoxia 5. Morbid obesity 6. s/p PEA arrest; may have aspirated 7. SIRS +/- aspiration pneumonitis Rec: 1. Vent protocol; rest today and start PSV in AM 2. PICC done 3. Off Amiodarone and Dobutamine 4. Diuresis as tolerated 5. DVT PPx 6. LVEF of 10% so Propofol not optimal; try changing to Fentanyl drip 7. Esteban-cultures done; agree w/ adding Clinda given concern for aspiration; monitor closely 8. Guarded prognosis due to multiple issues; plan of care reviewed w/ family, they understand/agree CCT 31 minutes Subjective Date of service: 01/20/17 Principal diagnosis: Chf exacerbation Interval history: Fever spike to 102 this AM. Sedated on Propofol. Opens eyes and follows commands but cannot give history. Minimal vent settings w/ FiO2 of 35%. UOP good with Lasix. Off Dobumatine and Amio drips. Active Medications Acetaminophen (Tylenol) 650 mg PO Q4H PRN PRN Reason: Pain MILD(1-3)/Fever >100.5/LIMA Last Admin: 01/20/17 10:14 Dose: 650 mg Aspirin (Baby Aspirin) 81 mg PO QDAY [facility] Last Admin: 01/20/17 09:15 Dose: 81 mg Bisacodyl (Dulcolax) 10 mg [place] QDAY PRN PRN Reason: Constipation unrelieved by MOM Carvedilol (Coreg) 25 mg PO BID [facility] Last Admin: 01/20/17 09:15 Dose: 25 mg Dextrose (D50w (25gm)) 50 ml IV PRN PRN PRN Reason: Hypoglycemia Famotidine (Pepcid) 20 mg PO BID [facility] Last Admin: 01/20/17 09:15 Dose: 20 mg Furosemide (Lasix) 40 mg IV 0600,1800 [facility] Last Admin: 01/20/17 06:15 Dose: 40 mg Heparin Sodium (Porcine) (Heparin) 5,000 unit SUB-Q Q12HR [facility] Last Admin: 01/20/17 09:16 Dose: 5,000 unit Hydromorphone HCl (Dilaudid) 0.5 mg IV Q3H PRN PRN Reason: Pain , Severe (7-10) Hydrophilic Ointment (Vaseline Lip Therapy) 1 applic TP Q2HR PRN PRN Reason: Dry Lips Propofol (Diprivan 10 Mg/Ml) 1,000 mg in 100 mls @ 4.26 mls/hr IV TITR ALANNA; 5 MCG/KG/MIN PRN Reason: Protocol Last Admin: 01/20/17 09:18 Dose: 12 mcg/kg/min, 10.224 mls/hr Levofloxacin/Dextrose (Levaquin 750mg/150ml) 750 mg in 150 mls @ 100 mls/hr IV Q48H [facility]ANNA PRN Reason: Protocol Clindamycin HCl (Cleocin 300 Mg/50 Ml) 300 mg in 50 mls @ 100 mls/hr IV Q6HR [facility] PRN Reason: Protocol Insulin Aspart (Novolog) 0 units SUB-Q Q6HR [facility] PRN Reason: Protocol Last Admin: 01/20/17 11:33 Dose: Not Given Metoclopramide HCl (Reglan) 10 mg IV Q8H PRN PRN Reason: Nausea And Vomiting Multi-Ingred Cream/Lotion/Oil/Oint (Artificial Tears Ophth Oint) 1 applic OU Q4HR PRN PRN Reason: Dry Eye(s) Oxycodone/Acetaminophen (Percocet 5/325) 1 tab PO Q6H PRN PRN Reason: Pain, Moderate (4-6) Simvastatin (Zocor) 10 mg PO QHS [facility] Last Admin: 01/19/17 23:48 Dose: 10 mg Sodium Chloride (Sodium Chloride Flush Syringe 10 Ml) 10 ml IV PRN PRN PRN Reason: LINE FLUSH Vancomycin HCl (Vancomycin Pharmacy To Dose) 1 each IV PKCONSULT [facility] PRN Reason: Protocol Zolpidem Tartrate (Ambien) 5 mg PO QHS PRN PRN Reason: Insomnia Objective Vital Signs - 12hr 01/20/17 01/20/17 01/20/17 00:40 00:50 01:00 Temperature Pulse Rate 90 90 76 Pulse Rate [ Apical] Respiratory 18 22 21 Rate Respiratory Rate [Head] Blood Pressure 136/85 138/94 138/94 O2 Sat by Pulse 97 98 99 Oximetry 01/20/17 01/20/17 01/20/17 01:10 01:20 01:30 Temperature Pulse Rate 81 77 77 Pulse Rate [ Apical] Respiratory 18 14 16 Rate Respiratory Rate [Head] Blood Pressure 116/67 118/87 128/83 O2 Sat by Pulse 99 98 97 Oximetry 01/20/17 01/20/17 01/20/17 01:40 01:49 01:50 Temperature Pulse Rate 77 92 H 79 Pulse Rate [ Apical] Respiratory 11 L 18 Rate Respiratory Rate [Head] Blood Pressure 114/67 114/67 116/77 O2 Sat by Pulse 95 98 98 Oximetry 01/20/17 01/20/17 01/20/17 02:00 02:10 02:20 Temperature Pulse Rate 84 80 81 Pulse Rate [ Apical] Respiratory 18 18 20 Rate Respiratory Rate [Head] Blood Pressure 116/77 119/78 110/74 O2 Sat by Pulse 98 97 98 Oximetry 01/20/17 01/20/17 01/20/17 02:30 02:40 02:50 Temperature Pulse Rate 81 79 79 Pulse Rate [ Apical] Respiratory 20 19 20 Rate Respiratory Rate [Head] Blood Pressure 110/74 127/82 124/75 O2 Sat by Pulse 98 99 97 Oximetry 01/20/17 01/20/17 01/20/17 03:00 03:10 03:20 Temperature 97.8 F Pulse Rate 79 84 80 Pulse Rate [ Apical] Respiratory 17 18 18 Rate Respiratory Rate [Head] Blood Pressure 115/74 111/79 105/68 O2 Sat by Pulse 98 98 98 Oximetry 01/20/17 01/20/17 01/20/17 03:30 03:40 03:50 Temperature Pulse Rate 78 76 80 Pulse Rate [ Apical] Respiratory 20 17 14 Rate Respiratory Rate [Head] Blood Pressure 123/80 119/79 109/82 O2 Sat by Pulse 97 98 98 Oximetry 01/20/17 01/20/17 01/20/17 04:00 04:10 04:20 Temperature Pulse Rate 81 79 80 Pulse Rate [ 108 H Apical] Respiratory 20 17 16 Rate Respiratory Rate [Head] Blood Pressure 106/79 126/81 126/83 O2 Sat by Pulse 98 98 97 Oximetry 01/20/17 01/20/17 01/20/17 04:30 04:40 04:50 Temperature Pulse Rate 80 81 82 Pulse Rate [ Apical] Respiratory 13 16 17 Rate Respiratory Rate [Head] Blood Pressure 106/79 133/79 111/81 O2 Sat by Pulse 97 97 97 Oximetry 01/20/17 01/20/17 01/20/17 05:00 05:10 05:20 Temperature Pulse Rate 80 79 79 Pulse Rate [ Apical] Respiratory 18 19 17 Rate Respiratory Rate [Head] Blood Pressure 112/85 128/84 118/68 O2 Sat by Pulse 97 97 97 Oximetry 01/20/17 01/20/17 01/20/17 05:30 05:40 05:50 Temperature Pulse Rate 78 75 108 H Pulse Rate [ Apical] Respiratory 18 18 18 Rate Respiratory Rate [Head] Blood Pressure 102/70 109/68 125/72 O2 Sat by Pulse 96 95 97 Oximetry 01/20/17 01/20/17 01/20/17 05:55 06:00 06:10 Temperature Pulse Rate 108 H 111 H 110 H Pulse Rate [ Apical] Respiratory 12 18 Rate Respiratory Rate [Head] Blood Pressure 109/68 113/74 110/73 O2 Sat by Pulse 96 95 98 Oximetry 01/20/17 01/20/17 01/20/17 06:20 06:30 06:40 Temperature Pulse Rate 109 H 108 H 109 H Pulse Rate [ Apical] Respiratory 13 15 18 Rate Respiratory Rate [Head] Blood Pressure 115/76 122/71 123/79 O2 Sat by Pulse 94 95 93 Oximetry 01/20/17 01/20/17 01/20/17 06:50 07:00 07:10 Temperature 101.0 F H Pulse Rate 110 H 110 H 111 H Pulse Rate [ Apical] Respiratory 18 18 12 Rate Respiratory Rate [Head] Blood Pressure 114/73 123/78 108/77 O2 Sat by Pulse 93 94 94 Oximetry 01/20/17 01/20/17 01/20/17 07:20 07:30 07:40 Temperature Pulse Rate 110 H 107 H 109 H Pulse Rate [ Apical] Respiratory 11 L 11 L 14 Rate Respiratory Rate [Head] Blood Pressure 119/72 115/71 115/71 O2 Sat by Pulse 95 95 97 Oximetry 01/20/17 01/20/17 01/20/17 07:50 08:00 08:10 Temperature Pulse Rate 105 H 108 H 106 H Pulse Rate [ Apical] Respiratory 11 L 13 12 Rate Respiratory Rate [Head] Blood Pressure 112/69 111/72 115/67 O2 Sat by Pulse 95 93 100 Oximetry 01/20/17 01/20/17 01/20/17 08:20 08:30 08:40 Temperature Pulse Rate 106 H 106 H 106 H Pulse Rate [ Apical] Respiratory 17 13 11 L Rate Respiratory Rate [Head] Blood Pressure 121/73 103/53 93/60 O2 Sat by Pulse 89 93 100 Oximetry 01/20/17 01/20/17 01/20/17 08:50 09:00 09:10 Temperature Pulse Rate 104 H 106 H 109 H Pulse Rate [ Apical] Respiratory 20 18 18 Rate Respiratory Rate [Head] Blood Pressure 107/62 121/62 119/65 O2 Sat by Pulse 95 93 94 Oximetry 01/20/17 01/20/17 01/20/17 09:15 09:20 09:30 Temperature Pulse Rate 107 H 106 H 113 H Pulse Rate [ Apical] Respiratory 17 18 Rate Respiratory Rate [Head] Blood Pressure 121/62 119/73 119/65 O2 Sat by Pulse 93 95 Oximetry 01/20/17 01/20/17 01/20/17 09:40 09:50 10:00 Temperature Pulse Rate 127 H 126 H 104 H Pulse Rate [ Apical] Respiratory 11 L 16 12 Rate Respiratory 18 Rate [Head] Blood Pressure 120/61 96/57 96/57 O2 Sat by Pulse 97 91 96 Oximetry 01/20/17 01/20/17 01/20/17 10:10 10:14 10:20 Temperature Pulse Rate 125 H 105 H Pulse Rate [ Apical] Respiratory 17 14 17 Rate Respiratory Rate [Head] Blood Pressure 96/57 117/66 O2 Sat by Pulse 98 96 Oximetry 01/20/17 01/20/17 01/20/17 10:30 10:40 10:50 Temperature Pulse Rate 104 H 103 H 92 H Pulse Rate [ Apical] Respiratory 13 13 19 Rate Respiratory Rate [Head] Blood Pressure 117/66 96/46 108/48 O2 Sat by Pulse 93 99 94 Oximetry 01/20/17 01/20/17 11:00 11:32 Temperature 99.3 F Pulse Rate 122 H Pulse Rate [ Apical] Respiratory 19 Rate Respiratory Rate [Head] Blood Pressure 87/56 O2 Sat by Pulse Oximetry Constitutional: other (sedated, critically ill) Eyes: non-icteric ENT: oropharynx moist Neck: supple Effort: normal Ascultation: Bilateral: rhonchi, other (coarse, equal BS bilaterally) Cardiovascular: regular rate and rhythm (tachy, RR) Gastrointestinal: normoactive bowel sounds, soft, other (obese) Integumentary: normal Extremities: no cyanosis, pink and warm, edema (2+ bilateral LE edema) Neurologic: unable to assess (sedated; grossly nonfocal, following commands) Psychiatric: other (unable to assess) CBC and BMP: 01/20/17 04:00 01/20/17 05:45 ABG, PT/INR, D-dimer: ABG POC ABG pH 7.429 (7.35-7.45) 01/20/17 06:09 POC ABG pCO2 39.8 (35-45) 01/20/17 06:09 POC ABG pO2 67 (80-105) L 01/20/17 06:09 POC ABG HCO3 26.3 01/20/17 06:09 POC ABG Total CO2 28 01/20/17 06:09 POC ABG O2 Sat 94 01/20/17 06:09 Abnormal lab findings: Abnormal Labs 01/15/17 01/15/17 01/15/17 17:45 22:06 23:40 WBC RDW 18.6 H Plt Count 114 L Lymph % (Auto) [place] % (Auto) Eos % (Auto) Baso % (Auto) Lymph # Seg Neutrophils % Seg Neuts % (Manual) 82.0 H Lymphocytes % (Manual) 7.0 L Lymphocytes # (Manual) 0.4 L POC ABG pO2 Sodium Potassium Chloride Carbon Dioxide BUN Creatinine Glucose POC Glucose 147 H 135 H Total Bilirubin CK-MB (CK-2) CK-MB (CK-2) Rel Index Total Protein Albumin Urine WBC (Auto) 01/15/17 01/16/17 01/16/17 23:40 03:44 08:49 WBC RDW Plt Count Lymph % (Auto) [place] % (Auto) Eos % (Auto) Baso % (Auto) Lymph # Seg Neutrophils % Seg Neuts % (Manual) Lymphocytes % (Manual) Lymphocytes # (Manual) POC ABG pO2 Sodium 132 L Potassium 5.1 H Chloride 95.5 L Carbon Dioxide 20 L BUN 36 H Creatinine Glucose 128 H POC Glucose 117 H 126 H Total Bilirubin CK-MB (CK-2) CK-MB (CK-2) Rel Index Total Protein Albumin Urine WBC (Auto) 01/16/17 01/16/17 01/16/17 08:56 08:56 12:06 WBC RDW 19.2 H Plt Count Lymph % (Auto) 6.6 L [place] % (Auto) 12.0 H Eos % (Auto) 5.8 H Baso % (Auto) 1.9 H Lymph # 0.3 L Seg Neutrophils % 73.7 H Seg Neuts % (Manual) Lymphocytes % (Manual) Lymphocytes # (Manual) POC ABG pO2 Sodium 132 L Potassium Chloride 95.1 L Carbon Dioxide 19 L BUN 36 H Creatinine 1.3 H Glucose 129 H POC Glucose 172 H Total Bilirubin 1.40 H CK-MB (CK-2) CK-MB (CK-2) Rel Index Total Protein 6.2 L Albumin 3.1 L Urine WBC (Auto) 01/16/17 01/17/17 01/17/17 22:34 05:29 05:29 WBC RDW 19.2 H Plt Count Lymph % (Auto) 5.9 L [place] % (Auto) 10.8 H Eos % (Auto) Baso % (Auto) Lymph # 0.4 L Seg Neutrophils % 80.1 H Seg Neuts % (Manual) Lymphocytes % (Manual) Lymphocytes # (Manual) POC ABG pO2 Sodium 131 L Potassium 5.3 H Chloride 94.8 L Carbon Dioxide 21 L BUN 39 H Creatinine 1.4 H Glucose 196 H POC Glucose 210 H Total Bilirubin CK-MB (CK-2) CK-MB (CK-2) Rel Index Total Protein Albumin Urine WBC (Auto) 01/17/17 01/17/17 01/17/17 07:39 17:39 22:45 WBC RDW Plt Count Lymph % (Auto) [place] % (Auto) Eos % (Auto) Baso % (Auto) Lymph # Seg Neutrophils % Seg Neuts % (Manual) Lymphocytes % (Manual) Lymphocytes # (Manual) POC ABG pO2 Sodium Potassium Chloride Carbon Dioxide BUN Creatinine Glucose POC Glucose 198 H 208 H 223 H Total Bilirubin CK-MB (CK-2) CK-MB (CK-2) Rel Index Total Protein Albumin Urine WBC (Auto) 01/18/17 01/18/17 01/18/17 05:07 08:32 12:24 WBC RDW Plt Count Lymph % (Auto) [place] % (Auto) Eos % (Auto) Baso % (Auto) Lymph # Seg Neutrophils % Seg Neuts % (Manual) Lymphocytes % (Manual) Lymphocytes # (Manual) POC ABG pO2 Sodium 129 L Potassium 5.2 H Chloride 92.0 L Carbon Dioxide BUN 41 H Creatinine 1.5 H Glucose 228 H POC Glucose 236 H 230 H Total Bilirubin CK-MB (CK-2) CK-MB (CK-2) Rel Index Total Protein Albumin Urine WBC (Auto) 01/18/17 01/19/17 01/19/17 16:00 03:46 03:46 WBC RDW 18.9 H Plt Count Lymph % (Auto) [place] % (Auto) Eos % (Auto) Baso % (Auto) Lymph # Seg Neutrophils % Seg Neuts % (Manual) Lymphocytes % (Manual) Lymphocytes # (Manual) POC ABG pO2 Sodium 128 L Potassium Chloride 92.3 L Carbon Dioxide 21 L BUN 40 H Creatinine 1.4 H Glucose 178 H POC Glucose 253 H Total Bilirubin CK-MB (CK-2) CK-MB (CK-2) Rel Index Total Protein Albumin Urine WBC (Auto) 01/19/17 01/19/17 01/19/17 09:21 11:45 13:02 WBC RDW Plt Count Lymph % (Auto) [place] % (Auto) Eos % (Auto) Baso % (Auto) Lymph # Seg Neutrophils % Seg Neuts % (Manual) Lymphocytes % (Manual) Lymphocytes # (Manual) POC ABG pO2 Sodium 131 L Potassium Chloride 92.8 L Carbon Dioxide BUN 39 H Creatinine 1.4 H Glucose 159 H POC Glucose 135 H 125 H Total Bilirubin CK-MB (CK-2) 4.1 H CK-MB (CK-2) Rel Index 4.1 H Total Protein Albumin Urine WBC (Auto) 01/19/17 01/20/17 01/20/17 15:48 04:00 05:45 WBC 11.5 H RDW 18.9 H Plt Count 131 L Lymph % (Auto) [place] % (Auto) Eos % (Auto) Baso % (Auto) Lymph # Seg Neutrophils % Seg Neuts % (Manual) Lymphocytes % (Manual) Lymphocytes # (Manual) POC ABG pO2 189 H Sodium 129 L Potassium Chloride 91.4 L Carbon Dioxide BUN 37 H Creatinine 1.3 H Glucose POC Glucose Total Bilirubin CK-MB (CK-2) CK-MB (CK-2) Rel Index Total Protein Albumin Urine WBC (Auto) 01/20/17 01/20/17 06:09 09:34 WBC RDW Plt Count Lymph % (Auto) [place] % (Auto) Eos % (Auto) Baso % (Auto) Lymph # Seg Neutrophils % Seg Neuts % (Manual) Lymphocytes % (Manual) Lymphocytes # (Manual) POC ABG pO2 67 L Sodium Potassium Chloride Carbon Dioxide BUN Creatinine Glucose POC Glucose Total Bilirubin CK-MB (CK-2) CK-MB (CK-2) Rel Index Total Protein Albumin Urine WBC (Auto) 15.0 H Chest x-ray: report reviewed, image reviewed (worsening bilateral infiltrates)
[2017-01-20] MEDS ORDERED: VANCOMYCIN 2,000 MG in NACL 0.9% 500 ML 500 ML IV ONE (13:00)
[2017-01-20] MEDS ORDERED: VANCOMYCIN/NS 1 GM/250 ML 1 GM/250 ML BAG IV ONE (13:00)
[2017-01-20] MEDS ORDERED: LEVAQUIN 750MG/150ML 750 MG/150 ML BAG IV SCH (13:00)
[2017-01-20] MEDS ORDERED: VANCOMYCIN PHARMACY TO DOSE IV SCH (13:00)
[2017-01-20] MEDS: CLEOCIN 300 MG/50 mL 300 MG/50 ML BAG IV SCH ×3 (14:00→23:42)
[2017-01-20] MEDS: fentaNYL DRIP Premix 2,000 MCG/100 ML BAG IV SCH ×2 (14:00→23:42)
--- NOTE | 2017-01-20 18:42 | Consultation ---
History of Present Illness - Reason for Consult Consult date: 01/20/17 Fever Requesting physician: JUMA WALSH - History of Present Illness Ms. Parada is a 71-year-old woman with CHF (EF 10-15%) who is s/p PEA arrest. She was febrile this AM to 101 deg F thought secondary to aspiration PNA. Chest radiograph shows worsened vascular congestion. Sputum Gram stain shows few WBCs , but presence of Gram positive cocci in pairs and clusters. She is started empirically on Vancomycin, Levaquin and Clindamycin. ID consultation is requested for fever evaluation and treatment of probable pneumonia. Past History Past Medical History: arrhythmia, CAD, heart failure, hypertension, hyperlipidemia, renal failure Past Surgical History: Other (osteoarthritis knees) Social history: Lives alone. denies: smoking, alcohol abuse, IV drug use Family history: diabetes, hypertension Medications and Allergies Allergies Allergy/AdvReac Type Severity Reaction Status Date / Time Penicillins Allergy Swelling Verified 01/22/16 12:36 Home Medications Medication Instructions Recorded Confirmed Last Taken Type Ascorbic Acid [Vitamin C] 500 mg PO DAILY 12/01/15 01/15/17 01/18/16 History Mv, Min #36/Iron,Carbonyl/FA 1 mg PO DAILY 12/01/15 01/15/17 01/18/16 History [Geritol Complete Tablet] [place]-3 Fatty Acids [Fish Oil] 1,200 mg PO DAILY 12/01/15 01/15/17 01/18/16 History Potassium Chloride 40 meq PO QDAY 01/19/16 01/15/17 01/18/16 History Ranitidine HCl [Acid [place]ather Staker] 150 mg PO BID 01/19/16 01/15/17 01/18/16 History Valsartan [Diovan] 80 mg PO DAILY 01/19/16 01/15/17 01/18/16 History Furosemide [Lasix TAB] 40 mg PO 0600,1800 #60 tablet 01/26/16 01/15/17 Unknown Rx Spironolactone [Aldactone] 25 mg PO QDAY #30 tablet 01/26/16 01/15/17 Unknown Rx Furosemide [Lasix TAB] 80 mg PO QDAY 01/15/17 01/15/17 Unknown History Furosemide [Lasix] 20 mg PO QDAY 01/15/17 01/15/17 Unknown History Active Meds: Active Medications Acetaminophen (Tylenol) 650 mg PO Q4H PRN PRN Reason: Pain MILD(1-3)/Fever >100.5/LIMA Last Admin: 01/20/17 10:14 Dose: 650 mg Aspirin (Baby Aspirin) 81 mg PO QDAY [facility] Last Admin: 01/20/17 09:15 Dose: 81 mg Bisacodyl (Dulcolax) 10 mg [place] QDAY PRN PRN Reason: Constipation unrelieved by MOM Carvedilol (Coreg) 25 mg PO BID [facility] Last Admin: 01/20/17 09:15 Dose: 25 mg Dextrose (D50w (25gm)) 50 ml IV PRN PRN PRN Reason: Hypoglycemia Famotidine (Pepcid) 20 mg PO BID [facility] Last Admin: 01/20/17 09:15 Dose: 20 mg Furosemide (Lasix) 40 mg IV 0600,1800 [facility] Last Admin: 01/20/17 17:03 Dose: 40 mg Heparin Sodium (Porcine) (Heparin) 5,000 unit SUB-Q Q12HR [facility] Last Admin: 01/20/17 09:16 Dose: 5,000 unit Hydromorphone HCl (Dilaudid) 0.5 mg IV Q3H PRN PRN Reason: Pain , Severe (7-10) Hydrophilic Ointment (Vaseline Lip Therapy) 1 applic TP Q2HR PRN PRN Reason: Dry Lips Levofloxacin/Dextrose (Levaquin 750mg/150ml) 750 mg in 150 mls @ 100 mls/hr IV Q48H [facility] PRN Reason: Protocol Last Admin: 01/20/17 13:41 Dose: 100 mls/hr Clindamycin HCl (Cleocin 300 Mg/50 Ml) 300 mg in 50 mls @ 100 mls/hr IV Q6HR [facility]AN[facility] PRN Reason: Protocol Last Admin: 01/20/17 14:00 Dose: 100 mls/hr Vancomycin HCl 2,000 mg/ (Sodium Chloride) 540 mls @ 250 mls/hr IV Q24H [facility] Fentanyl Citrate (Fentanyl Drip Premix) 2,000 mcg in 100 mls @ 7.1 mls/hr IV TITR ALANNA; 1 MCG/KG/HR PRN Reason: Protocol Last Admin: 01/20/17 14:00 Dose: 1 mcg/kg/hr, 7.1 mls/hr Insulin Aspart (Novolog) 0 units SUB-Q Q6HR [facility] PRN Reason: Protocol Last Admin: 01/20/17 17:06 Dose: Not Given Metoclopramide HCl (Reglan) 10 mg IV Q8H PRN PRN Reason: Nausea And Vomiting Multi-Ingred Cream/Lotion/Oil/Oint (Artificial Tears Ophth Oint) 1 applic OU Q4HR PRN PRN Reason: Dry Eye(s) Oxycodone/Acetaminophen (Percocet 5/325) 1 tab PO Q6H PRN PRN Reason: Pain, Moderate (4-6) Simvastatin (Zocor) 10 mg PO QHS [facility] Last Admin: 01/19/17 23:48 Dose: 10 mg Sodium Chloride (Sodium Chloride Flush Syringe 10 Ml) 10 ml IV PRN PRN PRN Reason: LINE FLUSH Vancomycin HCl (Vancomycin Pharmacy To Dose) 1 each IV PKCONSULT [facility] PRN Reason: Protocol Zolpidem Tartrate (Ambien) 5 mg PO QHS PRN PRN Reason: Insomnia Review of Systems ROS unobtainable: due to endotracheal tube Physical Examination - Constitutional Vitals: Vital Signs Temp Pulse Resp BP Pulse Ox 98.7 F 79 18 108/66 95 01/20/17 16:14 01/20/17 18:00 01/20/17 18:00 01/20/17 18:00 01/20/17 18:00 Temperature -Last 24 Hours Temperature 98.7 F Temperature 99.3 F Temperature 101.0 F Temperature 97.8 F Temperature 98.4 F Temperature 98.3 F General appearance: Present: no acute distress, obese (morbidly obese), other ( responsive and attempts to smile with ET tube in place; sister at bedside) - EENT ENT: other (ET tube in place, FiO2 35%; Dobhoff tube) - Neck Neck: Present: supple - Respiratory Respiratory: bilateral: rhonchi, negative: wheezing - Cardiovascular Rhythm: irregularly irregular - Extremities Extremity abnormal: edema (trace) - Abdominal General gastrointestinal: Present: soft, non-tender, non-distended, other (obese ) Female genitourinary: Present: other ([place] with clear urine) - Integumentary Integumentary: Present: clear. Absent: rash Results - Labs CBC & Chem 7: 01/20/17 04:00 01/20/17 05:45 Labs: Abnormal lab results 07/20/17 07/20/17 07/20/17 Range/Units 04:00 05:45 06:09 WBC 11.5 H (4.5-11.0) K/mm3 RDW 18.9 H (13.2-15.2) % Plt Count 131 L (140-440) K/mm3 POC ABG pO2 67 L (80-105) Sodium 129 L (137-145) mmol/L Chloride 91.4 L (98-107) mmol/L BUN 37 H (7-17) mg/dL Creatinine 1.3 H (0.7-1.2) mg/dL Urine WBC (Auto) (0.0-6.0) /HPF 01/20/17 Range/Units 09:34 WBC (4.5-11.0) K/mm3 RDW (13.2-15.2) % Plt Count (140-440) K/mm3 POC ABG pO2 (80-105) Sodium (137-145) mmol/L Chloride (98-107) mmol/L BUN (7-17) mg/dL Creatinine (0.7-1.2) mg/dL Urine WBC (Auto) 15.0 H (0.0-6.0) /HPF Microbiology 01/20/17 10:00 Peripheral/Venous Blood Culture - Preliminary Culture in Progress 01/20/17 10:00 Peripheral/Venous Blood Culture - Preliminary Culture in Progress 01/19/17 12:33 Tracheal Aspirate Sputum Culture - Preliminary - Imaging and Cardiology Chest x-ray: report reviewed Assessment and Plan - Patient Problems (1) Fever Current Visit: Yes Status: Acute Qualifiers: Fever type: F Encounter type: E Plan to address problem: 1. Likely due to aspiration or other pneumonia. 2. Okay to continue current regimen. Will follow clinically. (2) Acute exacerbation of CHF (congestive heart failure) Current Visit: Yes Status: Acute Qualifiers: Congestive heart failure type: combined Qualified Code(s): I50.43 - Acute on chronic combined systolic (congestive) and diastolic (congestive) heart failure Plan to address problem: Management per primary MD/ pulmonary.
[2017-01-20] MEDS: ZOCOR PO SCH (21:24)
[2017-01-21] MEDS: NOVOLOG SUB-Q SCH ×5 (00:53→23:24)
[2017-01-21 04:35] LABS: ISTAT Base Excess 0; ISTAT HCO3 26.1; ISTAT PCO2 48.6 (35-45); ISTAT PH 7.338 (7.35-7.45); ISTAT PO2 67 (80-105); ISTAT SO2 92; ISTAT TCO2 28
[2017-01-21] MEDS: CLEOCIN 300 MG/50 mL 300 MG/50 ML BAG IV SCH ×4 (05:15→23:33)
[2017-01-21] MEDS: fentaNYL DRIP Premix 2,000 MCG/100 ML BAG IV SCH (05:16)
[2017-01-21] MEDS: LASIX IV SCH (05:23)
[2017-01-21 05:39] LABS: Hematocrit 41.6 % (30.3-42.9); Hemoglobin 13.5 gm/dl (10.1-14.3); Mean Corpuscular HGB Conc 32 % (30-34); Mean Corpuscular Hemoglobin 28 pg (28-32); Mean Corpuscular Volume 87 fl (79-97); Platelet Count 135 K/mm3 (140-440); Red Blood Count 4.76 M/mm3 (3.65-5.03); Red Cell Distribution Width 18.9 % (13.2-15.2); White Blood Count 11.8 K/mm3 (4.5-11.0)
[2017-01-21 06:00] LABS: BUN/Creatinine Ratio 25.33; Calcium 8.8 mg/dL (8.4-10.2); Chloride 95.5 mmol/L (98-107); Potassium 3.9 mmol/L (3.6-5.0)
--- NOTE | 2017-01-21 08:14 | XRay Report ---
Portable chest: The inspiratory failure. The heart is big and there is vascular congestion. There are bilateral effusions. Focal fluid or atelectasis in the left upper lobe. Endotracheal and nasogastric tubes are in position. No significant change compared to prior study of January 20. Impression: CHF.
[2017-01-21] MEDS: PEPCID PO SCH ×2 (10:16→23:35)
[2017-01-21] MEDS: BABY ASPIRIN PO SCH (10:16)
[2017-01-21] MEDS: HEPARIN SUB-Q SCH ×2 (10:18→23:36)
[2017-01-21] MEDS: COREG PO SCH (10:19)
[2017-01-21] MEDS ORDERED: SIMPLE SYRUP FEEDTUBE PRN ×2 (11:02)
--- NOTE | 2017-01-21 11:20 | Progress Note ---
Assessment and Plan S/p PEA cardiorespiratory arrest 01/19 Intubated Ade negative for AMI s/p code; ECG with no ischemic changes Dobutamine gtt d/c'd s/p IV amio 150mg bolus x 1. Acute on chronic biventricular systolic heart failure Cont strict I/O continue IV lasix 40 BID continue carvedilol 25 bid. ACEI/ARB held in setting of CIERRA. ? Aspiration PNA ID following. CIERRA / Hyperkalemia aldactone held monitor Hyponatremia monitor Accelerated junction arrhythmia vs sinus with long NV interval Per EP, QRS vector same as office EKG unlikely VT Also with intermittent SR with prolonged NV v. IVCD v. idioventricular rhythm noted on tele. continue carvedilol Cardiomyopathy EF 10 - 15% NSVT Diabetes Hypertension Hyperlipidemia History of Breast CA Obesity Cont present cardiac regimen. Consider vasopressor support per peace officer if necessary to maintain MAP > 60mmHg. The patient has been seen in conjunction with Dr. Campos who agrees with the assessment and plan of care. Subjective Date of service: 01/21/17 Principal diagnosis: Chf exacerbation Interval history: Pt intubated, sedated. Remains in apparent junctional tachycardia with IVCD on tele, borderline hypotensive. Brief runs of NSVT noted overnight on tele. Objective Last Vital Signs Temp 99.1 F 01/21/17 08:00 Pulse 115 H 01/21/17 10:19 Resp 18 01/21/17 09:00 BP 80/51 01/21/17 10:19 Pulse Ox 96 01/21/17 09:00 - Physical Examination General: Appears Well HEENT: Positive: PERRL, EOMI, Other (intubated & sedated ) Neck: Positive: neck supple, trachea midline Cardiac: Positive: S1/S2, Tachycardia Lungs: Positive: Decreased Breath Sounds, Ventilated Respirations Neuro: Positive: Other (intubated & sedated) Abdomen: Positive: Unremarkable, Soft, Active Bowel Sounds Skin: Negative: Rash, Suspicious Lesions Extremities: Present: edema (trace BLE ), warm, Other (chronic venous stasis changes) - Labs and Meds CBC 01/21/17 Range/Units 05:20 WBC 11.8 H (4.5-11.0) K/mm3 RBC 4.76 (3.65-5.03) M/mm3 Hgb 13.5 (10.1-14.3) gm/dl Hct 41.6 (30.3-42.9) % Plt Count 135 L (140-440) K/mm3 Comprehensive Metabolic Panel 01/21/17 Range/Units 05:20 Sodium 134 L (137-145) mmol/L Potassium 3.9 (3.6-5.0) mmol/L Chloride 95.5 L (98-107) mmol/L Carbon Dioxide 25 (22-30) mmol/L BUN 38 H (7-17) mg/dL Creatinine 1.5 H (0.7-1.2) mg/dL Glucose 110 H (65-100) mg/dL Calcium 8.8 (8.4-10.2) mg/dL - Imaging and Cardiology EKG: report reviewed (Tachycardia of 128/min Junctional rhythm) Stress echo: report reviewed (Cardiac PET 11/11: very small mild anterior, anteroapical mild reversible defect. EF stress 58%) Echo: report reviewed (ECHO 11/16: TDS, EF cannot be determined due to poor image quality, ) Cardiac cath: report reviewed ([facility] 06/07: LM: patent, LCX: diffuse disease, LAD: diffuse disease, RCA: diffuse disease, mid 40%)
--- NOTE | 2017-01-21 11:35 | Progress Note ---
Assessment and Plan Assessment and plan: Patient is 71 yo woman who lives alone but has partial functional quadriplegia/ wheelchair bound (mostly uses a walker to the bathroom) with a h/o chronic hypoxic respiratory failure on 2 L oxygen at home, right sided breast cancer, morbid obesity bmi 52.1, CHF, nonobstructive coronary artery disease and dyslipidemia who presented to [facility] emergency room on 01/15/2017 with complaints of shortness of breath and rapid heartbeat. EKG showed tachyarrhythmia, diagnosed as accelerated junctional per cardiology. Chest x-ray was read as cardiomegaly with pulmonary vascular congestion more pronounced compared to previous study, probable CHF. 01/15/2017 2D echocardiogram reported as global left ventricular systolic function is severely decreased, estimated EF is 10-15%, left atrium mildly dilated, right ventricle is mild to moderately dilated, right ventricular global systolic function is moderately reduced, right atrium is mild to moderate dilated, trace AR, no , mitral annular calcification, mild MR, no ms, moderate TR, right ventricular systolic function is calculated at 48mmhg, there is small pericardial effusion which does not appear to be hemodynamically significant, large left pleural effusion is present. -Acute on chronic systolic heart failure, chronic and worsening: Cardiology is following, request patient be transferred to the ICU for worsening CHF, treated with Diuresis, add ASA -Accelerated junction arrhythmia, uncontrolled: Cardiology is following, they request cessation systems outreach specialist to evaluate -Acute renal failure, vasomotor nephropathy present on admission: Consulted nephrology -Hyperkalemia, mild, will restart her home insulin: monitor closely, still on Diovan per Dr. Cedeño, it appears benefits>risk at this point, await Nephrology evaluation; she had already received dose today. Will stop -Hyponatremia due to hyperglycemia: Control blood sugars -Uncontrolled type 2 diabetes mellitus: Restart home regimen -Chronic hypoxic respiratory failure due to CHF: Continue oxygen -DVT prophylaxis: change sq lovenox to sq heparin due to renal impairment full code 01/18/17: Patient was transferred to the ICU in the evening and started on Milrinone drip after EP re-evaluation 01/19/17: I saw patient the morning prior to the cardiac arrest, she was doing better without any new complaints and she felt like the swelling had gotten better, then ZECHARIAH AGUILAR called at 1135. [facility] [employer], Dr. Rios was close and ran the code. It appears patient was being washed up and she had bradycardia down to PEA, ACLS and chest compressions were started, patient pulse was restored with 2 doses of epinephrine. When Dr. Rios was intubating, he noticed gastric particles in the back of her throat; therefore, patient most likely aspirated, became hypoxic and went into PEA. During the CODE BLUE, she had more pronounced wide complex tachycardia; therefore, I ordered Primacor to be discontinued. Cardiology Dr. Campos came to the bedside and gave her Amiodarone 150 mg IV bolus 1 f(drip not start). D/w daughter Olivia, listed next of kin at [phone], ==>continue full code 01/20/17: She spiked a fever, trach sputum cultures has Preliminary growth of gram-positive cocci in pairs and clusters, started IV vancomycin and IV Levaquin , she is allergic to penicillin, consulted infectious disease physician, ordered blood cultures 2 sets and urinalysis, reviewed chest x-ray. She most likely has aspiration pneumonitis, may need to be on clindamycin also for anaerobic coverage The high probability of a clinically significant, sudden or life threatening deterioration of the [neurologic,cardiac] system(s) required my full and direct attention, intervention and personal management. The aggregate critical care time was [ 33 ] minutes. This time is in addition to time spent performing reported procedures but includes the following: [x] Data Review and interpretation [x] Patient assessment and monitoring of vital signs [x] Documentation [x] Medication orders and management 01/21/17: Issue today is borderline low blood pressure but Alyson is above 60, cardiology notified, complex medical decision because her EF is so low and IV fluids may cause pulmonary edema. Diprivan was changed to fentanyl drip. The fever is gone. Pt is on 3 IV antibiotics. Appreciate infectious disease note. History Interval history: Patient seen and examined. Follow up on cardiac arrest resolved; however, she is intubated and sedated. Overnight uneventful except that she spiked a fever this morning. Nursing notes reviewed. Hospitalist Physical - Physical exam Narrative exam: GEN: ill appearing bmi 52.1 intubated and sedated HEENT: ET tube in place NECK: SUPPLE, NO THYROMEGALY, + JVD, NO LAD CVS: irregular irregular, NORMAL S1S2 LUNGS/CHEST: Coarse breath sounds bilaterally NORMAL CHEST EXPANSION B, adequate AIR ENTRY B ABD: SOFT, distended GBS, NO REBOUND OR GUARDING EXT/SKIN: SIGNIFICANT EDEMA justino MSK: Spontaneous movement X 4 EXTREMITIES NEURO: CN 2-12 GROSSLY INTACT, sedated PSY: Sedated - Constitutional Vitals: Temp Pulse Resp BP Pulse Ox 99.1 F 115 H 18 80/51 96 01/21/17 08:00 01/21/17 10:19 01/21/17 09:00 01/21/17 10:19 01/21/17 09:00 Results - Labs CBC & Chem 7: 01/21/17 05:20 01/21/17 05:20 Labs: Laboratory Last Values WBC 11.8 K/mm3 (4.5-11.0) H 01/21/17 05:20 RBC 4.76 M/mm3 (3.65-5.03) 01/21/17 05:20 Hgb 13.5 gm/dl (10.1-14.3) 01/21/17 05:20 Hct 41.6 % (30.3-42.9) 01/21/17 05:20 MCV 87 fl (79-97) 01/21/17 05:20 MCH 28 pg (28-32) 01/21/17 05:20 MCHC 32 % (30-34) 01/21/17 05:20 RDW 18.9 % (13.2-15.2) H 01/21/17 05:20 Plt Count 135 K/mm3 (140-440) L 01/21/17 05:20 Lymph % (Auto) 5.9 % (13.4-35.0) L 01/17/17 05:29 [place] % (Auto) 10.8 % (0.0-7.3) H 01/17/17 05:29 Eos % (Auto) 2.4 % (0.0-4.3) 01/17/17 05:29 Baso % (Auto) 0.8 % (0.0-1.8) 01/17/17 05:29 Lymph # 0.4 K/mm3 (1.2-5.4) L 01/17/17 05:29 [place] # 0.6 K/mm3 (0.0-0.8) 01/17/17 05:29 Eos # 0.1 K/mm3 (0.0-0.4) 01/17/17 05:29 Baso # 0.0 K/mm3 (0.0-0.1) 01/17/17 05:29 Add Manual Diff Complete 01/15/17 23:40 Total Counted 100 01/15/17 23:40 Seg Neutrophils % 80.1 % (40.0-70.0) H 01/17/17 05:29 Seg Neuts % (Manual) 82.0 % (40.0-70.0) H 01/15/17 23:40 Band Neutrophils % 3.0 % 01/15/17 23:40 Lymphocytes % (Manual) 7.0 % (13.4-35.0) L 01/15/17 23:40 Reactive Lymphs % (Man) 0 % 01/15/17 23:40 Monocytes % (Manual) 6.0 % (0.0-7.3) 01/15/17 23:40 Eosinophils % (Manual) 2.0 % (0.0-4.3) 01/15/17 23:40 Basophils % (Manual) 0 % (0.0-1.8) 01/15/17 23:40 Metamyelocytes % 0 % 01/15/17 23:40 Myelocytes % 0 % 01/15/17 23:40 Promyelocytes % 0 % 01/15/17 23:40 Blast Cells % 0 % 01/15/17 23:40 Nucleated RBC % Not Reportable 01/15/17 23:40 Seg Neutrophils # 4.8 K/mm3 (1.8-7.7) 01/17/17 05:29 Seg Neutrophils # Man 4.7 K/mm3 (1.8-7.7) 01/15/17 23:40 Band Neutrophils # 0.2 K/mm3 01/15/17 23:40 Lymphocytes # (Manual) 0.4 K/mm3 (1.2-5.4) L 01/15/17 23:40 Abs React Lymphs (Man) 0.0 K/mm3 01/15/17 23:40 Monocytes # (Manual) 0.3 K/mm3 (0.0-0.8) 01/15/17 23:40 Eosinophils # (Manual) 0.1 K/mm3 (0.0-0.4) 01/15/17 23:40 Basophils # (Manual) 0.0 K/mm3 (0.0-0.1) 01/15/17 23:40 Metamyelocytes # 0.0 K/mm3 01/15/17 23:40 Myelocytes # 0.0 K/mm3 01/15/17 23:40 Promyelocytes # 0.0 K/mm3 01/15/17 23:40 Blast Cells # 0.0 K/mm3 01/15/17 23:40 WBC Morphology Not Reportable 01/15/17 23:40 Hypersegmented Neuts Not Reportable 01/15/17 23:40 Hyposegmented Neuts Not Reportable 01/15/17 23:40 Hypogranular Neuts Not Reportable 01/15/17 23:40 Smudge Cells Not Reportable 01/15/17 23:40 Toxic Granulation Not Reportable 01/15/17 23:40 Toxic Vacuolation Not Reportable 01/15/17 23:40 Dohle Bodies Not Reportable 01/15/17 23:40 Pelger-Huet Anomaly Not Reportable 01/15/17 23:40 Yusuf Rods Not Reportable 01/15/17 23:40 Platelet Estimate Appears normal 01/15/17 23:40 Clumped Platelets 1+ 01/15/17 23:40 Plt Clumps, EDTA Not Reportable 01/15/17 23:40 Large Platelets Not Reportable 01/15/17 23:40 Giant Platelets Not Reportable 01/15/17 23:40 Platelet Satelliting Not Reportable 01/15/17 23:40 Plt Morphology Comment Not Reportable 01/15/17 23:40 RBC Morphology Not Reportable 01/15/17 23:40 Dimorphic RBCs Not Reportable 01/15/17 23:40 Polychromasia Not Reportable 01/15/17 23:40 Hypochromasia Not Reportable 01/15/17 23:40 Poikilocytosis Not Reportable 01/15/17 23:40 Anisocytosis 1+ 01/15/17 23:40 Microcytosis Not Reportable 01/15/17 23:40 Macrocytosis Not Reportable 01/15/17 23:40 Spherocytes Not Reportable 01/15/17 23:40 Pappenheimer Bodies Not Reportable 01/15/17 23:40 Sickle Cells Not Reportable 01/15/17 23:40 Target Cells Not Reportable 01/15/17 23:40 Tear Drop Cells Not Reportable 01/15/17 23:40 Ovalocytes Not Reportable 01/15/17 23:40 Helmet Cells Not Reportable 01/15/17 23:40 [place] Bodies Not Reportable 01/15/17 23:40 Pateros Rings Not Reportable 01/15/17 23:40 [place] Cells Not Reportable 01/15/17 23:40 Bite Cells Not Reportable 01/15/17 23:40 Crenated Cell Not Reportable 01/15/17 23:40 Elliptocytes 1+ 01/15/17 23:40 Acanthocytes (Spur) Not Reportable 01/15/17 23:40 Rouleaux Not Reportable 01/15/17 23:40 Hemoglobin C Crystals Not Reportable 01/15/17 23:40 Schistocytes Not Reportable 01/15/17 23:40 Malaria parasites Not Reportable 01/15/17 23:40 Trevor Bodies Not Reportable 01/15/17 23:40 Hem Pathologist Commnt No 01/15/17 23:40 POC ABG pH 7.338 (7.35-7.45) L 01/21/17 04:23 POC ABG pCO2 48.6 (35-45) H 01/21/17 04:23 POC ABG pO2 67 (80-105) L 01/21/17 04:23 POC ABG HCO3 26.1 01/21/17 04:23 POC ABG Total CO2 28 01/21/17 04:23 POC ABG O2 Sat 92 01/21/17 04:23 POC ABG Base Excess 0 01/21/17 04:23 FiO2 35 % 01/21/17 04:23 Sodium 134 mmol/L (137-145) L 01/21/17 05:20 Potassium 3.9 mmol/L (3.6-5.0) 01/21/17 05:20 Chloride 95.5 mmol/L (98-107) L 01/21/17 05:20 Carbon Dioxide 25 mmol/L (22-30) 01/21/17 05:20 Anion Gap 17 mmol/L 01/21/17 05:20 BUN 38 mg/dL (7-17) H 01/21/17 05:20 Creatinine 1.5 mg/dL (0.7-1.2) H 01/21/17 05:20 Estimated GFR 41 ml/min 01/21/17 05:20 BUN/Creatinine Ratio 25.33 % 01/21/17 05:20 Glucose 110 mg/dL (65-100) H 01/21/17 05:20 POC Glucose 120 (70-105) H 01/21/17 05:38 Calcium 8.8 mg/dL (8.4-10.2) 01/21/17 05:20 Magnesium 1.70 mg/dL (1.7-2.3) 01/21/17 05:20 Total Bilirubin 1.40 mg/dL (0.1-1.2) H 01/16/17 08:56 AST 19 units/L (5-40) 01/16/17 08:56 ALT 11 units/L (7-56) 01/16/17 08:56 Alkaline Phosphatase 68 units/L (35-129) 01/16/17 08:56 Total Creatine Kinase 98 units/L (30-135) 01/19/17 13:02 CK-MB (CK-2) 4.1 ng/mL (0.0-4.0) H 01/19/17 13:02 CK-MB (CK-2) Rel Index 4.1 (0-4) H 01/19/17 13:02 Troponin T 0.022 ng/mL (0.00-0.029) 01/19/17 13:02 NT-Pro-B Natriuret Pep 8400 pg/mL (0-900) H 01/15/17 09:03 Total Protein 6.2 g/dL (6.3-8.2) L 01/16/17 08:56 Albumin 3.1 g/dL (3.9-5) L 01/16/17 08:56 Albumin/Globulin Ratio 1.0 % 01/16/17 08:56 Urine Color Yellow (Yellow) 01/20/17 09:34 Urine Turbidity Clear (Clear) 01/20/17 09:34 Urine pH 5.0 (5.0-7.0) 01/20/17 09:34 Ur Specific [place] 1.006 (1.003-1.030) 01/20/17 09:34 Urine Protein <15 mg/dl mg/dL (Negative) 01/20/17 09:34 Urine Glucose (UA) Neg mg/dL (Negative) 01/20/17 09:34 Urine Ketones Neg mg/dL (Negative) 01/20/17 09:34 Urine Blood Mod (Negative) 01/20/17 09:34 Urine Nitrite Neg (Negative) 01/20/17 09:34 Urine Bilirubin Neg (Negative) 01/20/17 09:34 Urine Urobilinogen < 2.0 mg/dL (<2.0) 01/20/17 09:34 Ur Leukocyte Esterase Mod (Negative) 01/20/17 09:34 Urine WBC (Auto) 15.0 /HPF (0.0-6.0) H 01/20/17 09:34 Urine RBC (Auto) 12.0 /HPF (0.0-6.0) 01/20/17 09:34 U Epithel Cells (Auto) 2.0 /HPF (0-13.0) 01/20/17 09:34 Urine Bacteria (Auto) 1+ /HPF (Negative) 01/20/17 09:34 Amorphous Crystals Few 01/20/17 09:34 Urine Yeast (Budding) 1+ /HPF 01/20/17 09:34
--- NOTE | 2017-01-21 11:38 | Progress Note ---
Subjective Principal diagnosis: Chf exacerbation Interval history: Time of evaluation 12:25 PM Patient was seen today for follow-up on multiple renal related issues Events of this hospitalization noted Patient remains intubated Vitals labs intake output and medications were reviewed Social history: Reviewed Family history: Reviewed Allergy: Reviewed Physical examination Vitals: Reviewed HEENT: Oral mucosa moist Neck: Supple no JVD Chest: Bilateral clear to auscultation no crackles rales or wheezes Heart: Regular rate and rhythm S1 and S2 heard Abdomen: Soft nontender no voluntary guarding rigidity rebound Extremity: Minimal edema dry skin Dermatology; dry skin no edema Neurological alert awake Assessment and plan Renal insufficiency creatinine is currently at around 1.3, currently 1.5 Urine culture is currently pending Mild hyponatremia to follow on Lasix that needs to be monitored closely Her carvedilol dose may need to be reduced if okay with cardiology as her blood pressure has been on the low side these consider that Hypertension appears to be stable at this time Avoid nephrotoxic medication Risk of radiocontrast nephropathy moderate to high No ultrasound has been obtained so far We'll continue to follow and make recommendation from renal standpoint Objective - Vital Signs Vital signs: Vital Signs - 12hr 01/20/17 01/20/17 01/20/17 23:40 23:50 23:51 Temperature Pulse Rate 99 H 92 H 101 H Pulse Rate [ Apical] Respiratory 18 18 18 Rate Blood Pressure 103/58 96/63 96/63 O2 Sat by Pulse 96 93 97 Oximetry 01/21/17 01/21/17 01/21/17 00:00 00:10 00:20 Temperature 98.9 F Pulse Rate 100 H 121 H 72 Pulse Rate [ Apical] Respiratory 18 18 18 Rate Blood Pressure 85/61 93/63 90/57 O2 Sat by Pulse 92 96 94 Oximetry 01/21/17 01/21/17 01/21/17 00:30 00:40 00:50 Temperature Pulse Rate 97 H 101 H 98 H Pulse Rate [ Apical] Respiratory 16 18 17 Rate Blood Pressure 98/60 97/61 102/56 O2 Sat by Pulse 96 98 96 Oximetry 01/21/17 01/21/17 01/21/17 01:00 01:10 01:20 Temperature Pulse Rate 101 H 97 H 95 H Pulse Rate [ Apical] Respiratory 18 18 18 Rate Blood Pressure 96/63 104/60 103/62 O2 Sat by Pulse 96 94 94 Oximetry 01/21/17 01/21/17 01/21/17 01:31 01:40 01:50 Temperature Pulse Rate 98 H 122 H 103 H Pulse Rate [ Apical] Respiratory 18 17 18 Rate Blood Pressure 97/74 103/68 107/66 O2 Sat by Pulse 92 92 94 Oximetry 01/21/17 01/21/17 01/21/17 02:01 02:10 02:20 Temperature Pulse Rate 119 H 127 H 105 H Pulse Rate [ Apical] Respiratory 20 17 18 Rate Blood Pressure 103/68 112/75 101/65 O2 Sat by Pulse 79 L 91 93 Oximetry 01/21/17 01/21/17 01/21/17 02:30 02:40 02:50 Temperature Pulse Rate 100 H 111 H 102 H Pulse Rate [ Apical] Respiratory 18 17 18 Rate Blood Pressure 107/69 106/69 95/65 O2 Sat by Pulse 92 91 92 Oximetry 01/21/17 01/21/17 01/21/17 03:01 03:10 03:20 Temperature Pulse Rate 128 H 126 H 128 H Pulse Rate [ Apical] Respiratory 18 17 18 Rate Blood Pressure 100/63 97/57 91/50 O2 Sat by Pulse 91 90 Oximetry 01/21/17 01/21/17 01/21/17 03:31 03:39 03:40 Temperature Pulse Rate 127 H 127 H 128 H Pulse Rate [ Apical] Respiratory 18 18 Rate Blood Pressure 99/71 99/71 109/69 O2 Sat by Pulse 91 94 94 Oximetry 01/21/17 01/21/17 01/21/17 03:51 04:00 04:01 Temperature 99.6 F Pulse Rate 129 H 130 H Pulse Rate [ 117 H Apical] Respiratory 17 18 11 L Rate Blood Pressure 104/63 104/63 O2 Sat by Pulse 93 97 98 Oximetry 01/21/17 01/21/17 01/21/17 04:11 04:20 04:30 Temperature Pulse Rate 130 H 130 H 77 Pulse Rate [ Apical] Respiratory 18 18 18 Rate Blood Pressure 167/131 110/71 95/66 O2 Sat by Pulse 94 95 Oximetry 01/21/17 01/21/17 01/21/17 04:40 04:50 05:00 Temperature Pulse Rate 129 H 77 128 H Pulse Rate [ Apical] Respiratory 18 18 18 Rate Blood Pressure 94/41 91/56 85/57 O2 Sat by Pulse 92 97 96 Oximetry 01/21/17 01/21/17 01/21/17 05:11 05:20 05:30 Temperature Pulse Rate 105 H 115 H 106 H Pulse Rate [ Apical] Respiratory 15 18 17 Rate Blood Pressure 103/73 106/72 95/64 O2 Sat by Pulse 93 99 Oximetry 01/21/17 01/21/17 01/21/17 05:32 05:40 05:52 Temperature Pulse Rate 117 H 106 H 106 H Pulse Rate [ Apical] Respiratory 18 18 Rate Blood Pressure 96/63 96/63 O2 Sat by Pulse 98 98 Oximetry 01/21/17 01/21/17 01/21/17 06:07 06:15 06:30 Temperature Pulse Rate 104 H 104 H 104 H Pulse Rate [ Apical] Respiratory 18 18 17 Rate Blood Pressure 97/63 82/60 O2 Sat by Pulse 98 97 98 Oximetry 01/21/17 01/21/17 01/21/17 06:45 07:00 07:15 Temperature Pulse Rate 106 H 126 H 132 H Pulse Rate [ Apical] Respiratory 18 18 17 Rate Blood Pressure 101/66 93/54 91/60 O2 Sat by Pulse 100 98 98 Oximetry 01/21/17 01/21/17 01/21/17 07:17 07:31 07:40 Temperature Pulse Rate 126 H 131 H 130 H Pulse Rate [ Apical] Respiratory 12 Rate Blood Pressure 91/60 82/49 82/49 O2 Sat by Pulse 100 89 94 Oximetry 01/21/17 01/21/17 01/21/17 07:45 08:00 08:15 Temperature 99.1 F Pulse Rate 123 H 110 H 108 H Pulse Rate [ Apical] Respiratory 18 18 18 Rate Blood Pressure 93/61 98/66 91/59 O2 Sat by Pulse 94 97 95 Oximetry 01/21/17 01/21/17 01/21/17 08:30 08:45 09:00 Temperature Pulse Rate 109 H 99 H 109 H Pulse Rate [ Apical] Respiratory 18 18 18 Rate Blood Pressure 89/49 93/58 82/47 O2 Sat by Pulse 95 96 96 Oximetry 01/21/17 10:19 Temperature Pulse Rate 115 H Pulse Rate [ Apical] Respiratory Rate Blood Pressure 80/51 O2 Sat by Pulse Oximetry - Lab 01/21/17 05:20 01/21/17 05:20 Most recent lab results Calcium 8.8 mg/dL (8.4-10.2) 01/21/17 05:20 Magnesium 1.70 mg/dL (1.7-2.3) 01/21/17 05:20
[2017-01-21] MEDS: LOPRESSOR PO SCH ×2 (12:30→23:21)
--- NOTE | 2017-01-21 12:55 | Progress Note ---
Assessment and Plan - Patient Problems (1) Aspiration pneumonia Current Visit: Yes Status: Acute Qualifiers: Aspiration pneumonia type: A Laterality: L Lung location: L Plan to address problem: Continue current antibiotics. (2) Fever Current Visit: Yes Status: Acute Qualifiers: Fever type: F Encounter type: E Plan to address problem: Resolved. (3) Acute exacerbation of CHF (congestive heart failure) Current Visit: Yes Status: Acute Qualifiers: Congestive heart failure type: combined Qualified Code(s): I50.43 - Acute on chronic combined systolic (congestive) and diastolic (congestive) heart failure Plan to address problem: Diuresis per primary MD. Subjective Date of service: 01/21/17 Principal diagnosis: CHF exacerbation Interval history: Remains in ICU. Afebrile today. Objective - Constitutional Vitals: Vital Signs Temp Pulse Resp BP Pulse Ox 99.1 F 102 H 16 87/50 100 01/21/17 08:00 01/21/17 11:45 01/21/17 11:45 01/21/17 11:45 01/21/17 11:45 Temperature -Last 24 Hours Temperature 99.1 F Temperature 99.6 F Temperature 98.9 F Temperature 98.3 F Temperature 98.7 F General appearance: Present: obese, other (intubated, FiO2 35%) - EENT ENT: other (ET and NG tubes in place) - Neck Neck: supple - Respiratory Respiratory: bilateral: CTA, negative: rales, wheezing - Cardiovascular Rhythm: regular (regular in the 130s) Extremities: No edema - Gastrointestinal General gastrointestinal: Present: soft, non-distended - Genitourinary Female genitourinary: other ([place] with yellow urine) - Integumentary Integumentary: no jaundice, no rash - Neurologic Neurologic: no focal deficits - Labs CBC & Chem 7: 01/21/17 05:20 01/21/17 05:20 Labs: Abnormal lab results 01/21/17 01/21/17 01/21/17 Range/Units 00:26 04:23 05:20 WBC 11.8 H (4.5-11.0) K/mm3 RDW 18.9 H (13.2-15.2) % Plt Count 135 L (140-440) K/mm3 POC ABG pH 7.338 L (7.35-7.45) POC ABG pCO2 48.6 H (35-45) POC ABG pO2 67 L (80-105) Sodium (137-145) mmol/L Chloride (98-107) mmol/L BUN (7-17) mg/dL Creatinine (0.7-1.2) mg/dL Glucose (65-100) mg/dL POC Glucose 109 H (70-105) 01/21/17 01/21/17 Range/Units 05:20 05:38 WBC (4.5-11.0) K/mm3 RDW (13.2-15.2) % Plt Count (140-440) K/mm3 POC ABG pH (7.35-7.45) POC ABG pCO2 (35-45) POC ABG pO2 (80-105) Sodium 134 L (137-145) mmol/L Chloride 95.5 L (98-107) mmol/L BUN 38 H (7-17) mg/dL Creatinine 1.5 H (0.7-1.2) mg/dL Glucose 110 H (65-100) mg/dL POC Glucose 120 H (70-105) Microbiology 01/20/17 10:00 Peripheral/Venous Blood Culture - Preliminary NO GROWTH AFTER 24 HOURS 01/20/17 10:00 Peripheral/Venous Blood Culture - Preliminary NO GROWTH AFTER 24 HOURS 01/20/17 10:08 Urine,Catheterized - Indwelling Catheter Urine Culture - Preliminary 01/19/17 12:33 Tracheal Aspirate Sputum Culture - Final - Imaging and cardiology Chest x-ray: report reviewed (cardiomegaly with vascular congestion)
[2017-01-21] MEDS ORDERED: LEVAQUIN 750MG/150ML 750 MG/150 ML BAG IV SCH (13:00)
[2017-01-21] MEDS: TYLENOL PO PRN (13:25)
--- NOTE | 2017-01-21 13:33 | Progress Note ---
Assessment and Plan Imp: 1. Dilated CMP 2. Acute systolic CHF 3. CIERRA 4. Acute respiratory failure, hypoxia 5. Morbid obesity 6. s/p PEA arrest; may have aspirated 7. SIRS +/- aspiration pneumonitis Rec: 1. No PSV today given tachycardia and borderline low BP 2. PICC done 3. Off Amiodarone and Dobutamine 4. Diuresis as tolerated -> holding Lasix 2/2 low BP 5. DVT PPx -> chemical + SCDs in place so PE doubtful 6. Fentanyl drip at lowest possible drip 7. Esteban-cultures done, neg thus far; ID on board re: ABX 8. Not getting Coreg due to low BP; change to low-dose Metoprolol PO 9. Asked RN to start TFs 10. Replete mag 11. Guarded prognosis due to multiple issues; no family present CCT 31 minutes Subjective Date of service: 01/21/17 Principal diagnosis: Chf exacerbation Interval history: No further fever. On low-dose Fentanyl drip. Having tachycardia up to the 130s and SBP 80's with current MAP of 69. Opens eyes and follows commands but cannot give history. Minimal vent settings w/ FiO2 of 35%. UOP good with Lasix. Off Dobumatine and Amio drips. Active Medications Acetaminophen (Tylenol) 650 mg PO Q4H PRN PRN Reason: Pain MILD(1-3)/Fever >100.5/LIMA Last Admin: 01/21/17 13:25 Dose: 650 mg Lipase/Protease/Amylase (Pancreaze Dr 10,500 Unit) 1 each FEEDTUBE PRN PRN PRN Reason: For Clogged Feeding Tube Aspirin (Baby Aspirin) 81 mg PO QDAY [facility] Last Admin: 01/21/17 10:16 Dose: 81 mg Bisacodyl (Dulcolax) 10 mg MT QDAY PRN PRN Reason: Constipation unrelieved by MOM Dextrose (D50w (25gm)) 50 ml IV PRN PRN PRN Reason: Hypoglycemia Famotidine (Pepcid) 20 mg PO BID [facility] Last Admin: 01/21/17 10:16 Dose: 20 mg Heparin Sodium (Porcine) (Heparin) 5,000 unit SUB-Q Q12HR [facility] Last Admin: 01/21/17 10:18 Dose: 5,000 unit Hydromorphone HCl (Dilaudid) 0.5 mg IV Q3H PRN PRN Reason: Pain , Severe (7-10) Hydrophilic Ointment (Vaseline Lip Therapy) 1 applic TP Q2HR PRN PRN Reason: Dry Lips Clindamycin HCl (Cleocin 300 Mg/50 Ml) 300 mg in 50 mls @ 100 mls/hr IV Q6HR ALANNA PRN Reason: Protocol Last Admin: 01/21/17 12:23 Dose: 100 mls/hr Vancomycin HCl 2,000 mg/ (Sodium Chloride) 540 mls @ 250 mls/hr IV Q24H ALANNA Fentanyl Citrate (Fentanyl Drip Premix) 2,000 mcg in 100 mls @ 7.1 mls/hr IV TITR ALANNA; 1 MCG/KG/HR PRN Reason: Protocol Last Titration: 01/21/17 12:30 Dose: Infused Levofloxacin/Dextrose (Levaquin 750mg/150ml) 750 mg in 150 mls @ 100 mls/hr IV Q24H ALANNA PRN Reason: Protocol Last Admin: 01/21/17 12:57 Dose: 100 mls/hr Magnesium Sulfate (Magnesium Sulfate 2gm/50ml) 2 gm in 50 mls @ 25 mls/hr IV ONCE ONE Stop: 01/21/17 15:26 Insulin Aspart (Novolog) 0 units SUB-Q Q6HR [facility] PRN Reason: Protocol Last Admin: 01/21/17 12:57 Dose: Not Given Metoclopramide HCl (Reglan) 10 mg IV Q8H PRN PRN Reason: Nausea And Vomiting Metoprolol Tartrate (Lopressor) 12.5 mg PO BID [facility] Last Admin: 01/21/17 12:30 Dose: 12.5 mg Multi-Ingred Cream/Lotion/Oil/Oint (Artificial Tears Ophth Oint) 1 applic OU Q4HR PRN PRN Reason: Dry Eye(s) Oxycodone/Acetaminophen (Percocet 5/325) 1 tab PO Q6H PRN PRN Reason: Pain, Moderate (4-6) Simple Syrup (Simple Syrup) 15 ml FEEDTUBE PRN PRN PRN Reason: Hypoglycemia Simple Syrup (Simple Syrup) 30 ml FEEDTUBE PRN PRN PRN Reason: Hypoglycemia Simvastatin (Zocor) 10 mg PO QHS [facility] Last Admin: 01/20/17 21:24 Dose: 10 mg Sodium Bicarbonate (Sodium Bicarbonate) 325 mg FEEDTUBE PRN PRN PRN Reason: For Clogged Feeding Tube Sodium Chloride (Sodium Chloride Flush Syringe 10 Ml) 10 ml IV PRN PRN PRN Reason: LINE FLUSH Vancomycin HCl (Vancomycin Pharmacy To Dose) 1 each IV PKCONSULT ALANNA PRN Reason: Protocol Objective Vital Signs - 12hr 01/21/17 01/21/17 01/21/17 01:31 01:40 01:50 Temperature Pulse Rate 98 H 122 H 103 H Pulse Rate [ Apical] Respiratory 18 17 18 Rate Blood Pressure 97/74 103/68 107/66 O2 Sat by Pulse 92 92 94 Oximetry 01/21/17 01/21/17 01/21/17 02:01 02:10 02:20 Temperature Pulse Rate 119 H 127 H 105 H Pulse Rate [ Apical] Respiratory 20 17 18 Rate Blood Pressure 103/68 112/75 101/65 O2 Sat by Pulse 79 L 91 93 Oximetry 01/21/17 01/21/17 01/21/17 02:30 02:40 02:50 Temperature Pulse Rate 100 H 111 H 102 H Pulse Rate [ Apical] Respiratory 18 17 18 Rate Blood Pressure 107/69 106/69 95/65 O2 Sat by Pulse 92 91 92 Oximetry 01/21/17 01/21/17 01/21/17 03:01 03:10 03:20 Temperature Pulse Rate 128 H 126 H 128 H Pulse Rate [ Apical] Respiratory 18 17 18 Rate Blood Pressure 100/63 97/57 91/50 O2 Sat by Pulse 91 90 Oximetry 01/21/17 01/21/17 01/21/17 03:31 03:39 03:40 Temperature Pulse Rate 127 H 127 H 128 H Pulse Rate [ Apical] Respiratory 18 18 Rate Blood Pressure 99/71 99/71 109/69 O2 Sat by Pulse 91 94 94 Oximetry 01/21/17 01/21/17 01/21/17 03:51 04:00 04:01 Temperature 99.6 F Pulse Rate 129 H 130 H Pulse Rate [ 117 H Apical] Respiratory 17 18 11 L Rate Blood Pressure 104/63 104/63 O2 Sat by Pulse 93 97 98 Oximetry 01/21/17 01/21/17 01/21/17 04:11 04:20 04:30 Temperature Pulse Rate 130 H 130 H 77 Pulse Rate [ Apical] Respiratory 18 18 18 Rate Blood Pressure 167/131 110/71 95/66 O2 Sat by Pulse 94 95 Oximetry 01/21/17 01/21/17 01/21/17 04:40 04:50 05:00 Temperature Pulse Rate 129 H 77 128 H Pulse Rate [ Apical] Respiratory 18 18 18 Rate Blood Pressure 94/41 91/56 85/57 O2 Sat by Pulse 92 97 96 Oximetry 01/21/17 01/21/17 01/21/17 05:11 05:20 05:30 Temperature Pulse Rate 105 H 115 H 106 H Pulse Rate [ Apical] Respiratory 15 18 17 Rate Blood Pressure 103/73 106/72 95/64 O2 Sat by Pulse 93 99 Oximetry 01/21/17 01/21/17 01/21/17 05:32 05:40 05:52 Temperature Pulse Rate 117 H 106 H 106 H Pulse Rate [ Apical] Respiratory 18 18 Rate Blood Pressure 96/63 96/63 O2 Sat by Pulse 98 98 Oximetry 01/21/17 01/21/17 01/21/17 06:07 06:15 06:30 Temperature Pulse Rate 104 H 104 H 104 H Pulse Rate [ Apical] Respiratory 18 18 17 Rate Blood Pressure 97/63 82/60 O2 Sat by Pulse 98 97 98 Oximetry 01/21/17 01/21/17 01/21/17 06:45 07:00 07:15 Temperature Pulse Rate 106 H 126 H 132 H Pulse Rate [ Apical] Respiratory 18 18 17 Rate Blood Pressure 101/66 93/54 91/60 O2 Sat by Pulse 100 98 98 Oximetry 01/21/17 01/21/17 01/21/17 07:17 07:31 07:40 Temperature Pulse Rate 126 H 131 H 130 H Pulse Rate [ Apical] Respiratory 12 Rate Blood Pressure 91/60 82/49 82/49 O2 Sat by Pulse 100 89 94 Oximetry 01/21/17 01/21/17 01/21/17 07:45 08:00 08:15 Temperature 99.1 F Pulse Rate 123 H 110 H 108 H Pulse Rate [ Apical] Respiratory 18 18 18 Rate Blood Pressure 93/61 98/66 91/59 O2 Sat by Pulse 94 97 95 Oximetry 01/21/17 01/21/17 01/21/17 08:30 08:45 09:00 Temperature Pulse Rate 109 H 99 H 109 H Pulse Rate [ Apical] Respiratory 18 18 18 Rate Blood Pressure 89/49 93/58 82/47 O2 Sat by Pulse 95 96 96 Oximetry 01/21/17 01/21/17 01/21/17 09:15 09:30 09:45 Temperature Pulse Rate 130 H 111 H 111 H Pulse Rate [ Apical] Respiratory 18 17 18 Rate Blood Pressure 74/42 89/55 88/57 O2 Sat by Pulse 94 94 Oximetry 01/21/17 01/21/17 01/21/17 10:00 10:15 10:19 Temperature Pulse Rate 112 H 125 H 115 H Pulse Rate [ Apical] Respiratory 18 19 Rate Blood Pressure 80/51 80/51 80/51 O2 Sat by Pulse 95 93 Oximetry 01/21/17 01/21/17 01/21/17 10:31 10:45 11:00 Temperature Pulse Rate 111 H 133 H 130 H Pulse Rate [ Apical] Respiratory 18 18 18 Rate Blood Pressure 80/45 80/45 91/45 O2 Sat by Pulse 89 96 97 Oximetry 01/21/17 01/21/17 01/21/17 11:15 11:31 11:36 Temperature Pulse Rate 112 H 130 H 130 H Pulse Rate [ Apical] Respiratory 17 16 Rate Blood Pressure 87/50 87/50 87/50 O2 Sat by Pulse 97 97 97 Oximetry 01/21/17 01/21/17 01/21/17 11:45 12:00 12:01 Temperature 99.5 F Pulse Rate 102 H 114 H Pulse Rate [ Apical] Respiratory 16 18 Rate Blood Pressure 87/50 91/36 O2 Sat by Pulse 100 97 Oximetry 01/21/17 01/21/17 01/21/17 12:15 12:30 12:45 Temperature Pulse Rate 119 H 102 H 101 H Pulse Rate [ Apical] Respiratory 17 15 17 Rate Blood Pressure 91/36 106/67 106/67 O2 Sat by Pulse 97 94 100 Oximetry 01/21/17 01/21/17 13:01 13:25 Temperature Pulse Rate 102 H Pulse Rate [ Apical] Respiratory 11 L 18 Rate Blood Pressure 83/53 O2 Sat by Pulse 97 Oximetry Constitutional: other (sedated, critically ill) Eyes: non-icteric ENT: oropharynx moist Neck: supple Effort: normal Ascultation: Bilateral: other (coarse, equal BS bilaterally) Cardiovascular: regular rate and rhythm (tachy, RR) Gastrointestinal: normoactive bowel sounds, soft, other (obese) Integumentary: normal Extremities: no cyanosis, pink and warm, edema (2+ bilateral LE edema) Neurologic: normal mental status, non-focal exam, pupils equal and round Psychiatric: mood appropriate, affect normal CBC and BMP: 01/21/17 05:20 01/21/17 05:20 ABG, PT/INR, D-dimer: ABG POC ABG pH 7.338 (7.35-7.45) L 01/21/17 04:23 POC ABG pCO2 48.6 (35-45) H 01/21/17 04:23 POC ABG pO2 67 (80-105) L 01/21/17 04:23 POC ABG HCO3 26.1 01/21/17 04:23 POC ABG Total CO2 28 01/21/17 04:23 POC ABG O2 Sat 92 01/21/17 04:23 Abnormal lab findings: Abnormal Labs 01/15/17 01/15/17 01/15/17 17:45 22:06 23:40 WBC RDW 18.6 H Plt Count 114 L Lymph % (Auto) [place] % (Auto) Eos % (Auto) Baso % (Auto) Lymph # Seg Neutrophils % Seg Neuts % (Manual) 82.0 H Lymphocytes % (Manual) 7.0 L Lymphocytes # (Manual) 0.4 L POC ABG pH POC ABG pCO2 POC ABG pO2 Sodium Potassium Chloride Carbon Dioxide BUN Creatinine Glucose POC Glucose 147 H 135 H Total Bilirubin CK-MB (CK-2) CK-MB (CK-2) Rel Index Total Protein Albumin Urine WBC (Auto) 01/15/17 01/16/17 01/16/17 23:40 03:44 08:49 WBC RDW Plt Count Lymph % (Auto) [place] % (Auto) Eos % (Auto) Baso % (Auto) Lymph # Seg Neutrophils % Seg Neuts % (Manual) Lymphocytes % (Manual) Lymphocytes # (Manual) POC ABG pH POC ABG pCO2 POC ABG pO2 Sodium 132 L Potassium 5.1 H Chloride 95.5 L Carbon Dioxide 20 L BUN 36 H Creatinine Glucose 128 H POC Glucose 117 H 126 H Total Bilirubin CK-MB (CK-2) CK-MB (CK-2) Rel Index Total Protein Albumin Urine WBC (Auto) 01/16/17 01/16/17 01/16/17 08:56 08:56 12:06 WBC RDW 19.2 H Plt Count Lymph % (Auto) 6.6 L [place] % (Auto) 12.0 H Eos % (Auto) 5.8 H Baso % (Auto) 1.9 H Lymph # 0.3 L Seg Neutrophils % 73.7 H Seg Neuts % (Manual) Lymphocytes % (Manual) Lymphocytes # (Manual) POC ABG pH POC ABG pCO2 POC ABG pO2 Sodium 132 L Potassium Chloride 95.1 L Carbon Dioxide 19 L BUN 36 H Creatinine 1.3 H Glucose 129 H POC Glucose 172 H Total Bilirubin 1.40 H CK-MB (CK-2) CK-MB (CK-2) Rel Index Total Protein 6.2 L Albumin 3.1 L Urine WBC (Auto) 01/16/17 01/17/17 01/17/17 22:34 05:29 05:29 WBC RDW 19.2 H Plt Count Lymph % (Auto) 5.9 L [place] % (Auto) 10.8 H Eos % (Auto) Baso % (Auto) Lymph # 0.4 L Seg Neutrophils % 80.1 H Seg Neuts % (Manual) Lymphocytes % (Manual) Lymphocytes # (Manual) POC ABG pH POC ABG pCO2 POC ABG pO2 Sodium 131 L Potassium 5.3 H Chloride 94.8 L Carbon Dioxide 21 L BUN 39 H Creatinine 1.4 H Glucose 196 H POC Glucose 210 H Total Bilirubin CK-MB (CK-2) CK-MB (CK-2) Rel Index Total Protein Albumin Urine WBC (Auto) 01/17/17 01/17/17 01/17/17 07:39 17:39 22:45 WBC RDW Plt Count Lymph % (Auto) [place] % (Auto) Eos % (Auto) Baso % (Auto) Lymph # Seg Neutrophils % Seg Neuts % (Manual) Lymphocytes % (Manual) Lymphocytes # (Manual) POC ABG pH POC ABG pCO2 POC ABG pO2 Sodium Potassium Chloride Carbon Dioxide BUN Creatinine Glucose POC Glucose 198 H 208 H 223 H Total Bilirubin CK-MB (CK-2) CK-MB (CK-2) Rel Index Total Protein Albumin Urine WBC (Auto) 01/18/17 01/18/17 01/18/17 05:07 08:32 12:24 WBC RDW Plt Count Lymph % (Auto) [place] % (Auto) Eos % (Auto) Baso % (Auto) Lymph # Seg Neutrophils % Seg Neuts % (Manual) Lymphocytes % (Manual) Lymphocytes # (Manual) POC ABG pH POC ABG pCO2 POC ABG pO2 Sodium 129 L Potassium 5.2 H Chloride 92.0 L Carbon Dioxide BUN 41 H Creatinine 1.5 H Glucose 228 H POC Glucose 236 H 230 H Total Bilirubin CK-MB (CK-2) CK-MB (CK-2) Rel Index Total Protein Albumin Urine WBC (Auto) 01/18/17 01/19/17 01/19/17 16:00 03:46 03:46 WBC RDW 18.9 H Plt Count Lymph % (Auto) [place] % (Auto) Eos % (Auto) Baso % (Auto) Lymph # Seg Neutrophils % Seg Neuts % (Manual) Lymphocytes % (Manual) Lymphocytes # (Manual) POC ABG pH POC ABG pCO2 POC ABG pO2 Sodium 128 L Potassium Chloride 92.3 L Carbon Dioxide 21 L BUN 40 H Creatinine 1.4 H Glucose 178 H POC Glucose 253 H Total Bilirubin CK-MB (CK-2) CK-MB (CK-2) Rel Index Total Protein Albumin Urine WBC (Auto) 01/19/17 01/19/17 01/19/17 09:21 11:45 13:02 WBC RDW Plt Count Lymph % (Auto) Ross % (Auto) Eos % (Auto) Baso % (Auto) Lymph # Seg Neutrophils % Seg Neuts % (Manual) Lymphocytes % (Manual) Lymphocytes # (Manual) POC ABG pH POC ABG pCO2 POC ABG pO2 Sodium 131 L Potassium Chloride 92.8 L Carbon Dioxide BUN 39 H Creatinine 1.4 H Glucose 159 H POC Glucose 135 H 125 H Total Bilirubin CK-MB (CK-2) 4.1 H CK-MB (CK-2) Rel Index 4.1 H Total Protein Albumin Urine WBC (Auto) 01/19/17 01/20/17 01/20/17 15:48 04:00 05:45 WBC 11.5 H RDW 18.9 H Plt Count 131 L Lymph % (Auto) [place] % (Auto) Eos % (Auto) Baso % (Auto) Lymph # Seg Neutrophils % Seg Neuts % (Manual) Lymphocytes % (Manual) Lymphocytes # (Manual) POC ABG pH POC ABG pCO2 POC ABG pO2 189 H Sodium 129 L Potassium Chloride 91.4 L Carbon Dioxide BUN 37 H Creatinine 1.3 H Glucose POC Glucose Total Bilirubin CK-MB (CK-2) CK-MB (CK-2) Rel Index Total Protein Albumin Urine WBC (Auto) 01/20/17 01/20/17 01/21/17 06:09 09:34 00:26 WBC RDW Plt Count Lymph % (Auto) [place] % (Auto) Eos % (Auto) Baso % (Auto) Lymph # Seg Neutrophils % Seg Neuts % (Manual) Lymphocytes % (Manual) Lymphocytes # (Manual) POC ABG pH POC ABG pCO2 POC ABG pO2 67 L Sodium Potassium Chloride Carbon Dioxide BUN Creatinine Glucose POC Glucose 109 H Total Bilirubin CK-MB (CK-2) CK-MB (CK-2) Rel Index Total Protein Albumin Urine WBC (Auto) 15.0 H 01/21/17 01/21/17 01/21/17 04:23 05:20 05:20 WBC 11.8 H RDW 18.9 H Plt Count 135 L Lymph % (Auto) Ross % (Auto) Eos % (Auto) Baso % (Auto) Lymph # Seg Neutrophils % Seg Neuts % (Manual) Lymphocytes % (Manual) Lymphocytes # (Manual) POC ABG pH 7.338 L POC ABG pCO2 48.6 H POC ABG pO2 67 L Sodium 134 L Potassium Chloride 95.5 L Carbon Dioxide BUN 38 H Creatinine 1.5 H Glucose 110 H POC Glucose Total Bilirubin CK-MB (CK-2) CK-MB (CK-2) Rel Index Total Protein Albumin Urine WBC (Auto) 01/21/17 05:38 WBC RDW Plt Count Lymph % (Auto) Ross % (Auto) Eos % (Auto) Baso % (Auto) Lymph # Seg Neutrophils % Seg Neuts % (Manual) Lymphocytes % (Manual) Lymphocytes # (Manual) POC ABG pH POC ABG pCO2 POC ABG pO2 Sodium Potassium Chloride Carbon Dioxide BUN Creatinine Glucose POC Glucose 120 H Total Bilirubin CK-MB (CK-2) CK-MB (CK-2) Rel Index Total Protein Albumin Urine WBC (Auto) Chest x-ray: report reviewed, image reviewed (CHF, small bilateral effusions)
[2017-01-21] MEDS ORDERED: MAGNESIUM SULFATE 2GM/50ML 2 GM/50 ML BAG IV ONE (14:00)
[2017-01-21] MEDS: VANCOMYCIN 2,000 MG in NACL 0.9% 500 ML 500 ML IV SCH (14:01)
[2017-01-21] MEDS ORDERED: NACL 0.9% 1000 ML 250 ML IV ONE (15:00)
[2017-01-21] MEDS: PERCOCET 5/325 PO PRN (23:35)
[2017-01-21] MEDS: ZOCOR PO SCH (23:41)
[2017-01-22] MEDS: CLEOCIN 300 MG/50 mL 300 MG/50 ML BAG IV SCH (05:58)
[2017-01-22] MEDS: NOVOLOG SUB-Q SCH ×3 (05:59→18:38)
[2017-01-22 06:04] LABS: Basophils % (Auto) 0.4 % (0.0-1.8); Eosinophils % (Auto) 1.4 % (0.0-4.3); Hematocrit 38.5 % (30.3-42.9); Hemoglobin 12.6 gm/dl (10.1-14.3); Mean Corpuscular HGB Conc 33 % (30-34); Mean Corpuscular Hemoglobin 28 pg (28-32); Mean Corpuscular Volume 86 fl (79-97); Platelet Count 116 K/mm3 (140-440); Red Blood Count 4.47 M/mm3 (3.65-5.03); Red Cell Distribution Width 18.7 % (13.2-15.2); White Blood Count 11.6 K/mm3 (4.5-11.0)
[2017-01-22 06:26] LABS: ISTAT Base Excess 0; ISTAT HCO3 24.9; ISTAT PCO2 38.3 (35-45); ISTAT PO2 88 (80-105); ISTAT SO2 97; ISTAT TCO2 26
[2017-01-22 07:34] LABS: Albumin 2.8 g/dL (3.9-5); BUN/Creatinine Ratio 22.63; Bilirubin,Total 1.6 mg/dL (0.1-1.2); Calcium 8.5 mg/dL (8.4-10.2); Chloride 94.6 mmol/L (98-107); Total Protein 5.6 g/dL (6.3-8.2)
--- NOTE | 2017-01-22 08:45 | Progress Note ---
Assessment and Plan - Patient Problems (1) Aspiration pneumonia Current Visit: Yes Status: Acute Qualifiers: Aspiration pneumonia type: A Laterality: L Lung location: L Plan to address problem: 1. A short course of antibiotics (3-5 days) is anticipated. 2. Will narrow to Vancomycin monotherapy to complete course. (2) Fever Current Visit: Yes Status: Acute Qualifiers: Fever type: F Encounter type: E Plan to address problem: Resolved. (3) Acute exacerbation of CHF (congestive heart failure) Current Visit: Yes Status: Acute Qualifiers: Congestive heart failure type: combined Qualified Code(s): I50.43 - Acute on chronic combined systolic (congestive) and diastolic (congestive) heart failure Subjective Date of service: 01/22/17 Principal diagnosis: CHF exacerbation Interval history: Remains intubated in ICU. No new events. Objective - Constitutional Vitals: Vital Signs Temp Pulse Resp BP Pulse Ox 98.3 F 126 H 17 100/64 99 01/22/17 04:00 01/22/17 08:00 01/22/17 08:00 01/22/17 08:00 01/22/17 08:00 Temperature -Last 24 Hours Temperature 98.3 F Temperature 98.7 F Temperature 98.8 F Temperature 98.8 F Temperature 100.1 F General appearance: Present: no acute distress (attempts to smile), obese ( morbidly obese), other (intubated, FiO2 35%) - EENT ENT: other (ET and NG tibes) - Respiratory Respiratory effort: normal Respiratory: bilateral: diminished, negative: rhonchi - Cardiovascular Rhythm: irregularly irregular Extremity abnormal: edema - Gastrointestinal General gastrointestinal: Present: soft, non-distended - Genitourinary Female genitourinary: normal ([place] with dark yellow urine) - Integumentary Integumentary: clear, no rash - Neurologic Neurologic: no focal deficits - Labs CBC & Chem 7: 01/23/17 04:10 01/23/17 04:10 Labs: Abnormal lab results 01/21/17 01/21/17 01/22/17 Range/Units 18:20 22:54 04:00 WBC 11.6 H (4.5-11.0) K/mm3 RDW 18.7 H (13.2-15.2) % Plt Count 116 L (140-440) K/mm3 Lymph % (Auto) 2.9 L (13.4-35.0) % [place] % (Auto) 11.1 H (0.0-7.3) % Lymph # 0.3 L (1.2-5.4) K/mm3 [place] # 1.3 H (0.0-0.8) K/mm3 Seg Neutrophils % 84.2 H (40.0-70.0) % Seg Neutrophils # 9.8 H (1.8-7.7) K/mm3 Sodium (137-145) mmol/L Chloride (98-107) mmol/L BUN (7-17) mg/dL Creatinine (0.7-1.2) mg/dL Glucose (65-100) mg/dL POC Glucose 135 H 163 H (70-105) Total Bilirubin (0.1-1.2) mg/dL Total Protein (6.3-8.2) g/dL Albumin (3.9-5) g/dL 01/22/17 Range/Units 04:00 WBC (4.5-11.0) K/mm3 RDW (13.2-15.2) % Plt Count (140-440) K/mm3 Lymph % (Auto) (13.4-35.0) % [place] % (Auto) (0.0-7.3) % Lymph # (1.2-5.4) K/mm3 [place] # (0.0-0.8) K/mm3 Seg Neutrophils % (40.0-70.0) % Seg Neutrophils # (1.8-7.7) K/mm3 Sodium 135 L (137-145) mmol/L Chloride 94.6 L (98-107) mmol/L BUN 43 H (7-17) mg/dL Creatinine 1.9 H (0.7-1.2) mg/dL Glucose 148 H (65-100) mg/dL POC Glucose (70-105) Total Bilirubin 1.60 H (0.1-1.2) mg/dL Total Protein 5.6 L (6.3-8.2) g/dL Albumin 2.8 L (3.9-5) g/dL Microbiology 01/20/17 10:00 Peripheral/Venous Blood Culture - Preliminary NO GROWTH AFTER 24 HOURS 01/20/17 10:00 Peripheral/Venous Blood Culture - Preliminary NO GROWTH AFTER 24 HOURS 01/20/17 10:08 Urine,Catheterized - Indwelling Catheter Urine Culture - Preliminary 01/19/17 12:33 Tracheal Aspirate Sputum Culture - Final
[2017-01-22] MEDS: PEPCID PO SCH ×2 (10:27→22:25)
[2017-01-22] MEDS: BABY ASPIRIN PO SCH (10:27)
[2017-01-22] MEDS: HEPARIN SUB-Q SCH ×2 (10:27→11:15)
--- NOTE | 2017-01-22 11:10 | XRay Report ---
AP CHEST :01/22/17 CLINICAL: Intubated.Follow up respiratory failure. COMPARISON:The previous day. FINDINGS: Tubes and lines are satisfactory. Cardiac megaly and central vascular congestion with redistribution of pulmonary blood flow to the upper lobes. There is some improvement with some clearing of the lungs and more distinct outline and of the pulmonary vessels. No pneumothorax. IMPRESSION: Interval improvement with decreased lung opacification.
--- NOTE | 2017-01-22 11:34 | Progress Note ---
Subjective Principal diagnosis: CHF exacerbation Interval history: Patient was seen today for follow-up on multiple renal related issues Creatinine appears to be 1.9 today Events of 24 hours noted Vitals labs intake output and medications were reviewed Social history: Reviewed Family history: Reviewed Allergy: Reviewed Physical examination Vitals: Reviewed HEENT: Oral mucosa moist Neck: Supple no JVD Chest: Bilateral clear to auscultation no crackles rales or wheezes Heart: Regular rate and rhythm S1 and S2 heard Abdomen: Soft nontender no voluntary guarding rigidity rebound Extremity: Minimal edema dry skin Dermatology; dry skin no edema Neurological alert awake Assessment and plan Renal insufficiency creatinine is currently at around 1.3, currently 1.5, increased to 1.9 Monitor vancomycin level closely, hold off Lasix for now check osmolality and uric acid Blood pressure has been on the low side which will cause more renal hypoperfusion and can result worsening of renal function Blood and urine culture negative so far Recommend keeping her systolic blood pressure around 140 Avoid nephrotoxic medication Risk of radiocontrast nephropathy moderate to high No ultrasound has been obtained so far We'll continue to follow and make recommendation from renal standpoint Objective - Vital Signs Vital signs: Vital Signs - 12hr 01/21/17 01/22/17 01/22/17 23:35 00:00 00:34 Temperature 98.7 F Pulse Rate 116 H 123 H Respiratory 26 H 18 Rate Respiratory Rate [Head] Blood Pressure 88/52 88/52 O2 Sat by Pulse 98 99 Oximetry 01/22/17 01/22/17 01/22/17 00:35 01:00 02:00 Temperature Pulse Rate 123 H 119 H Respiratory 18 17 16 Rate Respiratory Rate [Head] Blood Pressure 99/65 106/56 O2 Sat by Pulse 100 97 Oximetry 01/22/17 01/22/17 01/22/17 03:00 04:00 04:35 Temperature 98.3 F Pulse Rate 121 H 105 H 105 H Respiratory 19 19 Rate Respiratory 21 Rate [Head] Blood Pressure 91/60 87/53 87/53 O2 Sat by Pulse 98 99 99 Oximetry 01/22/17 01/22/17 01/22/17 05:01 06:00 07:01 Temperature Pulse Rate 105 H 80 104 H Respiratory 18 19 16 Rate Respiratory Rate [Head] Blood Pressure 85/36 75/55 90/46 O2 Sat by Pulse 98 96 98 Oximetry 01/22/17 01/22/1701/22/17 07:53 07:56 08:00 Temperature 99 F Pulse Rate 124 H 126 H 126 H Respiratory 18 17 Rate Respiratory Rate [Head] Blood Pressure 90/46 90/46 100/64 O2 Sat by Pulse 99 100 99 Oximetry - Lab 01/22/17 04:00 01/22/17 04:00 Most recent lab results Calcium 8.5 mg/dL (8.4-10.2) 01/22/17 04:00 Magnesium 2.00 mg/dL (1.7-2.3) 01/22/17 04:00
[2017-01-22 12:52] LABS: ISTAT Base Excess 0; ISTAT HCO3 25.5; ISTAT PCO2 45.2 (35-45); ISTAT PH 7.358 (7.35-7.45); ISTAT PO2 82 (80-105); ISTAT SO2 95; ISTAT TCO2 27
[2017-01-22] MEDS: LOPRESSOR PO SCH ×2 (13:43→22:30)
--- NOTE | 2017-01-22 14:37 | Progress Note ---
Assessment and Plan Assessment and plan: Patient is 71 yo woman who lives alone but has partial functional quadriplegia/ wheelchair bound (mostly uses a walker to the bathroom) with a h/o chronic hypoxic respiratory failure on 2 L oxygen at home, right sided breast cancer, morbid obesity bmi 52.1, CHF, nonobstructive coronary artery disease and dyslipidemia who presented to [facility] emergency room on 01/15/2017 with complaints of shortness of breath and rapid heartbeat. EKG showed tachyarrhythmia, diagnosed as accelerated junctional per cardiology. Chest x-ray was read as cardiomegaly with pulmonary vascular congestion more pronounced compared to previous study, probable CHF. 01/15/2017 2D echocardiogram reported as global left ventricular systolic function is severely decreased, estimated EF is 10-15%, left atrium mildly dilated, right ventricle is mild to moderately dilated, right ventricular global systolic function is moderately reduced, right atrium is mild to moderate dilated, trace AR, no , mitral annular calcification, mild MR, no ms, moderate TR, right ventricular systolic function is calculated at 48mmhg, there is small pericardial effusion which does not appear to be hemodynamically significant, large left pleural effusion is present. -Acute on chronic systolic heart failure, worsening: Cardiology is following, request patient be transferred to the ICU for worsening CHF, treated with Diuresis, add ASA -Accelerated junction arrhythmia, uncontrolled: Cardiology is following, program eligibility specialist evaluated -Acute renal failure, vasomotor nephropathy present on admission: Consulted nephrology -Hyperkalemia, mild, will restart her home insulin: monitor closely, still on Diovan per Dr. Cedeño, it appears benefits>risk at this point, await Nephrology evaluation; she had already received dose today. Will stop -Hyponatremia due to hyperglycemia: Control blood sugars -Uncontrolled type 2 diabetes mellitus: Restart home regimen -Sepsis pneumonia, pneumonia may have been poa, unable to say for sure with the chf/pulmonary vascular congestion on admission: continue to monitor and treat with abx -Chronic hypoxic respiratory failure due to CHF: Continue oxygen -DVT prophylaxis: scd only, heparin stopped due to dropping plt counts -Acute metabolic encephalopathy, poa -BMI 52.1, morbid obesity, poa: senior hr manager evaluation. -Acute on chronic hypoxic respiratory failure, poa: intubated, trying to wean off ventilator full code 01/18/17: Patient was transferred to the ICU in the evening and started on Milrinone drip after EP re-evaluation 01/19/17: I saw patient the morning prior to the cardiac arrest, she was doing better without any new complaints and she felt like the swelling had gotten better, then ZECHARIAH AGUILAR called at 1135. Web Marketing Strategist, Dr. Rios was close and ran the code. It appears patient was being washed up and she had bradycardia down to PEA, ACLS and chest compressions were started, patient pulse was restored with 2 doses of epinephrine. When Dr. Rios was intubating, he noticed gastric particles in the back of her throat; therefore, patient most likely aspirated, became hypoxic and went into PEA. During the CODE BLUE, she had more pronounced wide complex tachycardia; therefore, Primacor discontinued. Cardiology Dr. Campos came to the bedside and gave her Amiodarone 150 mg IV bolus 1 f(drip not started). D/w daughter Olivia, listed next of kin at [phone], ==>continue full code 01/20/17: She spiked a fever, trach sputum cultures has Preliminary growth of gram-positive cocci in pairs and clusters, started IV vancomycin and IV Levaquin , she is allergic to penicillin, consulted infectious disease physician, ordered blood cultures 2 sets and urinalysis, reviewed chest x-ray. She most likely has aspiration pneumonitis, may need to be on clindamycin also for anaerobic coverage The high probability of a clinically significant, sudden or life threatening deterioration of the [neurologic,cardiac] system(s) required my full and direct attention, intervention and personal management. The aggregate critical care time was [ 33 ] minutes. This time is in addition to time spent performing reported procedures but includes the following: [x] Data Review and interpretation [x] Patient assessment and monitoring of vital signs [x] Documentation [x] Medication orders and management 01/21/17: Issue today is borderline low blood pressure but Alyson is above 60, cardiology notified, complex medical decision because her EF is so low and IV fluids may cause pulmonary edema. Diprivan was changed to fentanyl drip. The fever is gone. Pt is on 3 IV antibiotics. Appreciate infectious disease note. 01/22/17: looks much better today. following commands, weaning attempts. IV Abx narrowed down. Urine ctx pending. plt is dropping, sq heparin stopped, repeat. History Interval history: Patient seen and examined. Follow up on cardiac arrest resolved; however, she is intubated and sedated. Overnight uneventful except that she spiked a fever this morning. Nursing notes reviewed. Hospitalist Physical - Physical exam Narrative exam: GEN: ill appearing bmi 52.1 intubated and sedated HEENT: ET tube in place NECK: SUPPLE, NO THYROMEGALY, + JVD, NO LAD CVS: irregular irregular, NORMAL S1S2 LUNGS/CHEST: Coarse breath sounds bilaterally NORMAL CHEST EXPANSION B, adequate AIR ENTRY B ABD: SOFT, distended GBS, NO REBOUND OR GUARDING EXT/SKIN: SIGNIFICANT EDEMA justino MSK: Spontaneous movement X 4 EXTREMITIES NEURO: CN 2-12 GROSSLY INTACT, sedated PSY: Sedated - Constitutional Vitals: Temp Pulse Resp BP Pulse Ox 98.6 F 131 H 18 110/84 99 01/22/17 12:00 01/22/17 13:43 01/22/17 13:00 01/22/17 13:43 01/22/17 13:00 General appearance: Present: obese, other (intubated, FiO2 35%) Results - Labs CBC & Chem 7: 01/22/17 04:00 01/22/17 04:00 Labs: Laboratory Last Values WBC 11.6 K/mm3 (4.5-11.0) H 01/22/17 04:00 RBC 4.47 M/mm3 (3.65-5.03) 01/22/17 04:00 Hgb 12.6 gm/dl (10.1-14.3) 01/22/17 04:00 Hct 38.5 % (30.3-42.9) 01/22/17 04:00 MCV 86 fl (79-97) 01/22/17 04:00 MCH 28 pg (28-32) 01/22/17 04:00 MCHC 33 % (30-34) 01/22/17 04:00 RDW 18.7 % (13.2-15.2) H 01/22/17 04:00 Plt Count 116 K/mm3 (140-440) L 01/22/17 04:00 Lymph % (Auto) 2.9 % (13.4-35.0) L 01/22/17 04:00 [place] % (Auto) 11.1 % (0.0-7.3) H 01/22/17 04:00 Eos % (Auto) 1.4 % (0.0-4.3) 01/22/17 04:00 Baso % (Auto) 0.4 % (0.0-1.8) 01/22/17 04:00 Lymph # 0.3 K/mm3 (1.2-5.4) L 01/22/17 04:00 [place] # 1.3 K/mm3 (0.0-0.8) H 01/22/17 04:00 Eos # 0.2 K/mm3 (0.0-0.4) 01/22/17 04:00 Baso # 0.0 K/mm3 (0.0-0.1) 01/22/17 04:00 Add Manual Diff Complete 01/15/17 23:40 Total Counted 100 01/15/17 23:40 Seg Neutrophils % 84.2 % (40.0-70.0) H 01/22/17 04:00 Seg Neuts % (Manual) 82.0 % (40.0-70.0) H 01/15/17 23:40 Band Neutrophils % 3.0 % 01/15/17 23:40 Lymphocytes % (Manual) 7.0 % (13.4-35.0) L 01/15/17 23:40 Reactive Lymphs % (Man) 0 % 01/15/17 23:40 Monocytes % (Manual) 6.0 % (0.0-7.3) 01/15/17 23:40 Eosinophils % (Manual) 2.0 % (0.0-4.3) 01/15/17 23:40 Basophils % (Manual) 0 % (0.0-1.8) 01/15/17 23:40 Metamyelocytes % 0 % 01/15/17 23:40 Myelocytes % 0 % 01/15/17 23:40 Promyelocytes % 0 % 01/15/17 23:40 Blast Cells % 0 % 01/15/17 23:40 Nucleated RBC % Not Reportable 01/15/17 23:40 Seg Neutrophils # 9.8 K/mm3 (1.8-7.7) H 01/22/17 04:00 Seg Neutrophils # Man 4.7 K/mm3 (1.8-7.7) 01/15/17 23:40 Band Neutrophils # 0.2 K/mm3 01/15/17 23:40 Lymphocytes # (Manual) 0.4 K/mm3 (1.2-5.4) L 01/15/17 23:40 Abs React Lymphs (Man) 0.0 K/mm3 01/15/17 23:40 Monocytes # (Manual) 0.3 K/mm3 (0.0-0.8) 01/15/17 23:40 Eosinophils # (Manual) 0.1 K/mm3 (0.0-0.4) 01/15/17 23:40 Basophils # (Manual) 0.0 K/mm3 (0.0-0.1) 01/15/17 23:40 Metamyelocytes # 0.0 K/mm3 01/15/17 23:40 Myelocytes # 0.0 K/mm3 01/15/17 23:40 Promyelocytes # 0.0 K/mm3 01/15/17 23:40 Blast Cells # 0.0 K/mm3 01/15/17 23:40 WBC Morphology Not Reportable 01/15/17 23:40 Hypersegmented Neuts Not Reportable 01/15/17 23:40 Hyposegmented Neuts Not Reportable 01/15/17 23:40 Hypogranular Neuts Not Reportable 01/15/17 23:40 Smudge Cells Not Reportable 01/15/17 23:40 Toxic Granulation Not Reportable 01/15/17 23:40 Toxic Vacuolation Not Reportable 01/15/17 23:40 Dohle Bodies Not Reportable 01/15/17 23:40 Pelger-Huet Anomaly Not Reportable 01/15/17 23:40 Yusuf Rods Not Reportable 01/15/17 23:40 Platelet Estimate Appears normal 01/15/17 23:40 Clumped Platelets 1+ 01/15/17 23:40 Plt Clumps, EDTA Not Reportable 01/15/17 23:40 Large Platelets Not Reportable 01/15/17 23:40 Giant Platelets Not Reportable 01/15/17 23:40 Platelet Satelliting Not Reportable 01/15/17 23:40 Plt Morphology Comment Not Reportable 01/15/17 23:40 RBC Morphology Not Reportable 01/15/17 23:40 Dimorphic RBCs Not Reportable 01/15/17 23:40 Polychromasia Not Reportable 01/15/17 23:40 Hypochromasia Not Reportable 01/15/17 23:40 Poikilocytosis Not Reportable 01/15/17 23:40 Anisocytosis 1+ 01/15/17 23:40 Microcytosis Not Reportable 01/15/17 23:40 Macrocytosis Not Reportable 01/15/17 23:40 Spherocytes Not Reportable 01/15/17 23:40 Pappenheimer Bodies Not Reportable 01/15/17 23:40 Sickle Cells Not Reportable 01/15/17 23:40 Target Cells Not Reportable 01/15/17 23:40 Tear Drop Cells Not Reportable 01/15/17 23:40 Ovalocytes Not Reportable 01/15/17 23:40 Helmet Cells Not Reportable 01/15/17 23:40 [place] Bodies Not Reportable 01/15/17 23:40 [place] Rings Not Reportable 01/15/17 23:40 [place] Cells Not Reportable 01/15/17 23:40 Bite Cells Not Reportable 01/15/17 23:40 Crenated Cell Not Reportable 01/15/17 23:40 Elliptocytes 1+ 01/15/17 23:40 Acanthocytes (Spur) Not Reportable 01/15/17 23:40 Rouleaux Not Reportable 01/15/17 23:40 Hemoglobin C Crystals Not Reportable 01/15/17 23:40 Schistocytes Not Reportable 01/15/17 23:40 Malaria parasites Not Reportable 01/15/17 23:40 [place] Bodies Not Reportable 01/15/17 23:40 Hem Pathologist Commnt No 01/15/17 23:40 POC ABG pH 7.358 (7.35-7.45) 01/22/17 11:37 POC ABG pCO2 45.2 (35-45) H 01/22/17 11:37 POC ABG pO2 82 (80-105) 01/22/17 11:37 POC ABG HCO3 25.5 01/22/17 11:37 POC ABG Total CO2 27 01/22/17 11:37 POC ABG O2 Sat 95 01/22/17 11:37 POC ABG Base Excess 0 01/22/17 11:37 FiO2 35 % 01/22/17 11:37 Sodium 135 mmol/L (137-145) L 01/22/17 04:00 Potassium 4.0 mmol/L (3.6-5.0) 01/22/17 04:00 Chloride 94.6 mmol/L (98-107) L 01/22/17 04:00 Carbon Dioxide 26 mmol/L (22-30) 01/22/17 04:00 Anion Gap 18 mmol/L 01/22/17 04:00 BUN 43 mg/dL (7-17) H 01/22/17 04:00 Creatinine 1.9 mg/dL (0.7-1.2) H 01/22/17 04:00 Estimated GFR 31 ml/min 01/22/17 04:00 BUN/Creatinine Ratio 22.63 % 01/22/17 04:00 Glucose 148 mg/dL (65-100) H 01/22/17 04:00 POC Glucose 163 (70-105) H 01/21/17 22:54 Osmolality 298 Mosm/kg 01/22/17 13:00 Uric Acid 12.0 mg/dL (3.5-7.6) H 01/22/17 13:00 Calcium 8.5 mg/dL (8.4-10.2) 01/22/17 04:00 Magnesium 2.00 mg/dL (1.7-2.3) 01/22/17 04:00 Total Bilirubin 1.60 mg/dL (0.1-1.2) H 01/22/17 04:00 AST 25 units/L (5-40) 01/22/17 04:00 ALT 12 units/L (7-56) 01/22/17 04:00 Alkaline Phosphatase 63 units/L (35-129) 01/22/17 04:00 Total Creatine Kinase 98 units/L (30-135) 01/19/17 13:02 CK-MB (CK-2) 4.1 ng/mL (0.0-4.0) H 01/19/17 13:02 CK-MB (CK-2) Rel Index 4.1 (0-4) H 01/19/17 13:02 Troponin T 0.022 ng/mL (0.00-0.029) 01/19/17 13:02 NT-Pro-B Natriuret Pep 8400 pg/mL (0-900) H 01/15/17 09:03 Total Protein 5.6 g/dL (6.3-8.2) L 01/22/17 04:00 Albumin 2.8 g/dL (3.9-5) L 01/22/17 04:00 Albumin/Globulin Ratio 1.0 % 01/22/17 04:00 Urine Color Yellow (Yellow) 01/20/17 09:34 Urine Turbidity Clear (Clear) 01/20/17 09:34 Urine pH 5.0 (5.0-7.0) 01/20/17 09:34 Ur Specific [place] 1.006 (1.003-1.030) 01/20/17 09:34 Urine Protein <15 mg/dl mg/dL (Negative) 01/20/17 09:34 Urine Glucose (UA) Neg mg/dL (Negative) 01/20/17 09:34 Urine Ketones Neg mg/dL (Negative) 01/20/17 09:34 Urine Blood Mod (Negative) 01/20/17 09:34 Urine Nitrite Neg (Negative) 01/20/17 09:34 Urine Bilirubin Neg (Negative) 01/20/17 09:34 Urine Urobilinogen < 2.0 mg/dL (<2.0) 01/20/17 09:34 Ur Leukocyte Esterase Mod (Negative) 01/20/17 09:34 Urine WBC (Auto) 15.0 /HPF (0.0-6.0) H 01/20/17 09:34 Urine RBC (Auto) 12.0 /HPF (0.0-6.0) 01/20/17 09:34 U Epithel Cells (Auto) 2.0 /HPF (0-13.0) 01/20/17 09:34 Urine Bacteria (Auto) 1+ /HPF (Negative) 01/20/17 09:34 Amorphous Crystals Few 01/20/17 09:34 Urine Yeast (Budding) 1+ /HPF 01/20/17 09:34 Vancomycin Trough 16.5 ug/mL (5.0-20.0) 01/22/17 13:00
[2017-01-22] MEDS: VANCOMYCIN 2,000 MG in NACL 0.9% 500 ML 500 ML IV SCH (15:07)
--- NOTE | 2017-01-22 15:34 | Progress Note ---
Assessment and Plan S/p PEA cardiorespiratory arrest 01/19 Intubated Ade negative for AMI s/p code; ECG with no ischemic changes Dobutamine gtt d/c'd s/p IV amio 150mg bolus x 1. Acute on chronic biventricular systolic heart failure Cont strict I/O continue IV lasix 40 BID continue carvedilol 25 bid. ACEI/ARB held in setting of CIERRA. ? Aspiration PNA ID following. ICERRA / Hyperkalemia aldactone held monitor Hyponatremia monitor Accelerated junction arrhythmia vs sinus with long LA interval Per EP, QRS vector same as office EKG unlikely VT Also with intermittent SR with prolonged LA v. IVCD v. idioventricular rhythm noted on tele. Cardiomyopathy EF 10 - 15% Subjective Principal diagnosis: CHF exacerbation Interval history: On CPAP. Objective Vital Signs Temp Pulse Pulse Pulse Pulse Resp Resp 01/22/17 15:05 114 H 01/22/17 13:43 131 H 01/22/17 13:00 131 H 01/22/17 12:00 98.6 F 114 H 01/22/17 11:37 130 H 01/22/17 11:00 126 H 01/22/17 10:01 96 H 01/22/17 10:00 01/22/17 09:00 126 H 01/22/17 08:00 99 F 126 H 120 H 01/22/17 07:56 126 H 01/22/17 07:53 124 H 01/22/17 07:01 104 H 01/22/17 06:00 80 01/22/17 05:01 105 H 01/22/17 04:35 105 H 01/22/17 04:00 98.3 F 105 H 19 01/22/17 03:00 121 H 01/22/17 02:00 119 H 01/22/17 01:00 123 H 17 01/22/17 00:35 18 01/22/17 00:34 123 H 01/22/17 00:00 98.7 F 116 H 01/21/17 23:35 26 H 01/21/17 23:21 122 H 01/21/17 23:00 125 H 18 01/21/17 22:00 125 H 18 01/21/17 21:00 125 H 18 01/21/17 20:01 129 H 01/21/17 20:00 98.8 F 125 H 125 H 122 H 114 H 22 18 01/21/17 19:54 126 H 01/21/17 19:01 114 H 16 01/21/17 18:00 117 H 15 01/21/17 17:05 104 H 16 01/21/17 17:00 106 H 17 01/21/17 16:45 123 H 18 01/21/17 16:30 109 H 14 01/21/17 16:15 109 H 18 01/21/17 16:00 98.8 F 104 H 18 01/21/17 15:45 107 H 16 BP Pulse Ox 01/22/17 15:05 105/69 99 01/22/17 13:43 110/84 01/22/17 13:00 110/84 99 01/22/17 12:00 97/66 100 01/22/17 11:37 92/63 97 01/22/17 11:00 92/63 98 01/22/17 10:01 102/61 95 01/22/17 10:00 01/22/17 09:00 109/73 97 01/22/17 08:00 100/64 98 01/22/17 07:56 90/46 100 01/22/17 07:53 90/46 99 01/22/17 07:01 90/46 98 01/22/17 06:00 75/55 96 01/22/17 05:01 85/36 98 01/22/17 04:35 87/53 99 01/22/17 04:00 87/53 99 01/22/17 03:00 91/60 98 01/22/17 02:00 106/56 97 01/22/17 01:00 99/65 100 01/22/17 00:35 01/22/17 00:34 88/52 99 01/22/17 00:00 88/52 98 01/21/17 23:35 01/21/17 23:21 92/41 01/21/17 23:00 92/55 98 01/21/17 22:00 84/53 93 01/21/17 21:00 95/63 94 01/21/17 20:01 96/34 99 01/21/17 20:00 93/52 97 01/21/17 19:54 87/49 97 01/21/17 19:01 84/42 97 07/21/17 18:00 102/59 99 01/21/17 17:05 82/55 98 01/21/17 17:00 82/55 98 01/21/17 16:45 81/50 98 01/21/17 16:30 97/42 97 01/21/17 16:15 94/49 96 01/21/17 16:00 78/49 95 01/21/17 15:45 93/47 94 - Physical Examination General: Appears Well HEENT: Positive: PERRL, EOMI, Other (intubated & sedated ) Neck: Positive: neck supple, trachea midline. Negative: JVD/HJR Cardiac: Positive: Tachycardia Lungs: Positive: Decreased Breath Sounds Neuro: Positive: Other (intubated & sedated) Abdomen: Positive: Unremarkable, Soft, Active Bowel Sounds Skin: Negative: Rash, Suspicious Lesions Extremities: Present: edema (trace BLE ), warm, Other (chronic venous stasis changes) - Labs and Meds Cardiac Enzymes 01/22/17 Range/Units 04:00 AST 25 (5-40) units/L CBC 01/22/17 Range/Units 04:00 WBC 11.6 H (4.5-11.0) K/mm3 RBC 4.47 (3.65-5.03) M/mm3 Hgb 12.6 (10.1-14.3) gm/dl Hct 38.5 (30.3-42.9) % Plt Count 116 L (140-440) K/mm3 Lymph # 0.3 L (1.2-5.4) K/mm3 [place] # 1.3 H (0.0-0.8) K/mm3 Eos # 0.2 (0.0-0.4) K/mm3 Baso # 0.0 (0.0-0.1) K/mm3 Comprehensive Metabolic Panel 01/22/17 Range/Units 04:00 Sodium 135 L (137-145) mmol/L Potassium 4.0 (3.6-5.0) mmol/L Chloride 94.6 L (98-107) mmol/L Carbon Dioxide 26 (22-30) mmol/L BUN 43 H (7-17) mg/dL Creatinine 1.9 H (0.7-1.2) mg/dL Glucose 148 H (65-100) mg/dL Calcium 8.5 (8.4-10.2) mg/dL AST 25 (5-40) units/L ALT 12 (7-56) units/L Alkaline Phosphatase 63 (35-129) units/L Total Protein 5.6 L (6.3-8.2) g/dL Albumin 2.8 L (3.9-5) g/dL - Imaging and Cardiology EKG: report reviewed (Tachycardia of 128/min Junctional rhythm) Stress echo: report reviewed (Cardiac PET 11/11: very small mild anterior, anteroapical mild reversible defect. EF stress 58%) Echo: report reviewed (ECHO 11/16: TDS, EF cannot be determined due to poor image quality, ) Cardiac cath: report reviewed ([facility] 06/07: LM: patent, LCX: diffuse disease, LAD: diffuse disease, RCA: diffuse disease, mid 40%) - Telemetry EKG Rhythm: Sinus Tachycardia
--- NOTE | 2017-01-22 17:27 | Progress Note ---
Assessment and Plan Imp: 1. Dilated CMP 2. Acute systolic CHF 3. CIERRA 4. Acute respiratory failure, hypoxia 5. Morbid obesity 6. s/p PEA arrest; may have aspirated 7. SIRS +/- aspiration pneumonitis Rec: 1. Meets all criteria for extubation with good mentation and pulm mechanics 2. PICC done 3. Off Amiodarone and Dobutamine 4. Diuresis as tolerated -> holding Lasix 2/2 CIERRA 5. DVT PPx -> chemical + SCDs in place so PE doubtful 6. Esteban-cultures done, neg thus far; ID on board re: ABX 7. Coreg stopped due to hypotension and ARB held due to CIERRA/hyperkalemia; increase Metoprolol given improved BP and ongoing tachycardia 8. Cont. TFs; plan ST swallow eval. post-extubation CCT 31 minutes Subjective Date of service: 01/22/17 Principal diagnosis: CHF exacerbation Interval history: No further fever. Awake, alert. On PSV 5/5 with RSBI less than 105, TV 500's, RR ~ 20. Still tachy but BP is better. Active Medications Acetaminophen (Tylenol) 650 mg PO Q4H PRN PRN Reason: Pain MILD(1-3)/Fever >100.5/LIMA Last Admin: 01/21/17 13:25 Dose: 650 mg Lipase/Protease/Amylase (Pancreaze Dr 10,500 Unit) 1 each FEEDTUBE PRN PRN PRN Reason: For Clogged Feeding Tube Aspirin (Baby Aspirin) 81 mg PO QDAY [facility] Last Admin: 01/22/17 10:27 Dose: 81 mg Bisacodyl (Dulcolax) 10 mg CO QDAY PRN PRN Reason: Constipation unrelieved by MOM Dextrose (D50w (25gm)) 50 ml IV PRN PRN PRN Reason: Hypoglycemia Famotidine (Pepcid) 20 mg PO BID [facility] Last Admin: 01/22/17 10:27 Dose: 20 mg Hydromorphone HCl (Dilaudid) 0.5 mg IV Q3H PRN PRN Reason: Pain , Severe (7-10) Hydrophilic Ointment (Vaseline Lip Therapy) 1 applic TP Q2HR PRN PRN Reason: Dry Lips Vancomycin HCl 2,000 mg/ (Sodium Chloride) 540 mls @ 250 mls/hr IV Q24H [facility] Last Admin: 01/22/17 15:07 Dose: 250 mls/hr Fentanyl Citrate (Fentanyl Drip Premix) 2,000 mcg in 100 mls @ 7.1 mls/hr IV TITR ALANNA; 1 MCG/KG/HR PRN Reason: Protocol Last Titration: 01/21/17 12:30 Dose: Infused Insulin Aspart (Novolog) 0 units SUB-Q Q6HR [facility] PRN Reason: Protocol Last Admin: 01/22/17 13:00 Dose: 2 units Metoclopramide HCl (Reglan) 10 mg IV Q8H PRN PRN Reason: Nausea And Vomiting Last Admin: 01/21/17 23:36 Dose: 10 mg Metoprolol Tartrate (Lopressor) 25 mg PO BID [facility] Multi-Ingred Cream/Lotion/Oil/Oint (Artificial Tears Ophth Oint) 1 applic OU Q4HR PRN PRN Reason: Dry Eye(s) Oxycodone/Acetaminophen (Percocet 5/325) 1 tab PO Q6H PRN PRN Reason: Pain, Moderate (4-6) Last Admin: 01/21/17 23:35 Dose: 1 tab Simple Syrup (Simple Syrup) 15 ml FEEDTUBE PRN PRN PRN Reason: Hypoglycemia Simple Syrup (Simple Syrup) 30 ml FEEDTUBE PRN PRN PRN Reason: Hypoglycemia Simvastatin (Zocor) 10 mg PO QHS [facility] Last Admin: 01/21/17 23:41 Dose: 10 mg Sodium Bicarbonate (Sodium Bicarbonate) 325 mg FEEDTUBE PRN PRN PRN Reason: For Clogged Feeding Tube Sodium Chloride (Sodium Chloride Flush Syringe 10 Ml) 10 ml IV PRN PRN PRN Reason: LINE FLUSH Vancomycin HCl (Vancomycin Pharmacy To Dose) 1 each IV PKCONSULT [facility] PRN Reason: Protocol Objective Vital Signs - 12hr 01/22/17 01/22/17 01/22/17 06:00 07:01 07:53 Temperature Pulse Rate 80 104 H 124 H Pulse Rate [ Left Radial] Respiratory 19 16 Rate Respiratory Rate [Head] Blood Pressure 75/55 90/46 90/46 O2 Sat by Pulse 96 98 99 Oximetry 01/22/17 01/22/17 01/22/17 07:56 08:00 09:00 Temperature 99 F Pulse Rate 126 H 126 H 126 H Pulse Rate [ 120 H Left Radial] Respiratory 18 20 16 Rate Respiratory Rate [Head] Blood Pressure 90/46 100/64 109/73 O2 Sat by Pulse 100 98 97 Oximetry 01/22/17 01/22/17 01/22/17 10:00 10:01 11:00 Temperature Pulse Rate 96 H 126 H Pulse Rate [ Left Radial] Respiratory 16 15 Rate Respiratory 22 Rate [Head] Blood Pressure 102/61 92/63 O2 Sat by Pulse 95 98 Oximetry 01/22/17 01/22/17 01/22/17 11:37 12:00 13:00 Temperature 98.6 F Pulse Rate 130 H 114 H 131 H Pulse Rate [ Left Radial] Respiratory 17 22 18 Rate Respiratory Rate [Head] Blood Pressure 92/63 97/66 110/84 O2 Sat by Pulse 97 100 99 Oximetry 01/22/17 01/22/17 13:43 15:05 Temperature Pulse Rate 131 H 114 H Pulse Rate [ Left Radial] Respiratory 20 Rate Respiratory Rate [Head] Blood Pressure 110/84 105/69 O2 Sat by Pulse 99 Oximetry Constitutional: other (critically ill on vent) Eyes: non-icteric ENT: oropharynx moist Neck: supple Effort: normal Ascultation: Bilateral: other (coarse, equal BS bilaterally) Cardiovascular: regular rate and rhythm (tachy, RR) Gastrointestinal: normoactive bowel sounds, soft, other (obese) Integumentary: normal Extremities: no cyanosis, pink and warm, edema (2+ bilateral LE edema) Neurologic: normal mental status, non-focal exam, pupils equal and round Psychiatric: mood appropriate, affect normal CBC and BMP: 01/22/17 04:00 01/22/17 04:00 ABG, PT/INR, D-dimer: ABG POC ABG pH 7.358 (7.35-7.45) 01/22/17 11:37 POC ABG pCO2 45.2 (35-45) H 01/22/17 11:37 POC ABG pO2 82 (80-105) 01/22/17 11:37 POC ABG HCO3 25.5 01/22/17 11:37 POC ABG Total CO2 27 01/22/17 11:37 POC ABG O2 Sat 95 01/22/17 11:37 Abnormal lab findings: Abnormal Labs 01/15/17 01/15/17 01/15/17 17:45 22:06 23:40 WBC RDW 18.6 H Plt Count 114 L Lymph % (Auto) [place] % (Auto) Eos % (Auto) Baso % (Auto) Lymph # [place] # Seg Neutrophils % Seg Neuts % (Manual) 82.0 H Lymphocytes % (Manual) 7.0 L Seg Neutrophils # Lymphocytes # (Manual) 0.4 L POC ABG pH POC ABG pCO2 POC ABG pO2 Sodium Potassium Chloride Carbon Dioxide BUN Creatinine Glucose POC Glucose 147 H 135 H Uric Acid Total Bilirubin CK-MB (CK-2) CK-MB (CK-2) Rel Index Total Protein Albumin Urine WBC (Auto) 01/15/17 01/16/17 01/16/17 23:40 03:44 08:49 WBC RDW Plt Count Lymph % (Auto) [place] % (Auto) Eos % (Auto) Baso % (Auto) Lymph # [place] # Seg Neutrophils % Seg Neuts % (Manual) Lymphocytes % (Manual) Seg Neutrophils # Lymphocytes # (Manual) POC ABG pH POC ABG pCO2 POC ABG pO2 Sodium 132 L Potassium 5.1 H Chloride 95.5 L Carbon Dioxide 20 L BUN 36 H Creatinine Glucose 128 H POC Glucose 117 H 126 H Uric Acid Total Bilirubin CK-MB (CK-2) CK-MB (CK-2) Rel Index Total Protein Albumin Urine WBC (Auto) 01/16/17 01/16/17 01/16/17 08:56 08:56 12:06 WBC RDW 19.2 H Plt Count Lymph % (Auto) 6.6 L [place] % (Auto) 12.0 H Eos % (Auto) 5.8 H Baso % (Auto) 1.9 H Lymph # 0.3 L [place] # Seg Neutrophils % 73.7 H Seg Neuts % (Manual) Lymphocytes % (Manual) Seg Neutrophils # Lymphocytes # (Manual) POC ABG pH POC ABG pCO2 POC ABG pO2 Sodium 132 L Potassium Chloride 95.1 L Carbon Dioxide 19 L BUN 36 H Creatinine 1.3 H Glucose 129 H POC Glucose 172 H Uric Acid Total Bilirubin 1.40 H CK-MB (CK-2) CK-MB (CK-2) Rel Index Total Protein 6.2 L Albumin 3.1 L Urine WBC (Auto) 01/16/17 01/17/17 01/17/17 22:34 05:29 05:29 WBC RDW 19.2 H Plt Count Lymph % (Auto) 5.9 L [place] % (Auto) 10.8 H Eos % (Auto) Baso % (Auto) Lymph # 0.4 L [place] # Seg Neutrophils % 80.1 H Seg Neuts % (Manual) Lymphocytes % (Manual) Seg Neutrophils # Lymphocytes # (Manual) POC ABG pH POC ABG pCO2 POC ABG pO2 Sodium 131 L Potassium 5.3 H Chloride 94.8 L Carbon Dioxide 21 L BUN 39 H Creatinine 1.4 H Glucose 196 H POC Glucose 210 H Uric Acid Total Bilirubin CK-MB (CK-2) CK-MB (CK-2) Rel Index Total Protein Albumin Urine WBC (Auto) 01/17/17 01/17/17 01/17/17 07:39 17:39 22:45 WBC RDW Plt Count Lymph % (Auto) [place] % (Auto) Eos % (Auto) Baso % (Auto) Lymph # [place] # Seg Neutrophils % Seg Neuts % (Manual) Lymphocytes % (Manual) Seg Neutrophils # Lymphocytes # (Manual) POC ABG pH POC ABG pCO2 POC ABG pO2 Sodium Potassium Chloride Carbon Dioxide BUN Creatinine Glucose POC Glucose 198 H 208 H 223 H Uric Acid Total Bilirubin CK-MB (CK-2) CK-MB (CK-2) Rel Index Total Protein Albumin Urine WBC (Auto) 01/18/17 01/18/17 01/18/17 05:07 08:32 12:24 WBC RDW Plt Count Lymph % (Auto) [place] % (Auto) Eos % (Auto) Baso % (Auto) Lymph # [place] # Seg Neutrophils % Seg Neuts % (Manual) Lymphocytes % (Manual) Seg Neutrophils # Lymphocytes # (Manual) POC ABG pH POC ABG pCO2 POC ABG pO2 Sodium 129 L Potassium 5.2 H Chloride 92.0 L Carbon Dioxide BUN 41 H Creatinine 1.5 H Glucose 228 H POC Glucose 236 H 230 H Uric Acid Total Bilirubin CK-MB (CK-2) CK-MB (CK-2) Rel Index Total Protein Albumin Urine WBC (Auto) 01/18/17 01/19/17 01/19/17 16:00 03:46 03:46 WBC RDW 18.9 H Plt Count Lymph % (Auto) [place] % (Auto) Eos % (Auto) Baso % (Auto) Lymph # [place] # Seg Neutrophils % Seg Neuts % (Manual) Lymphocytes % (Manual) Seg Neutrophils # Lymphocytes # (Manual) POC ABG pH POC ABG pCO2 POC ABG pO2 Sodium 128 L Potassium Chloride 92.3 L Carbon Dioxide 21 L BUN 40 H Creatinine 1.4 H Glucose 178 H POC Glucose 253 H Uric Acid Total Bilirubin CK-MB (CK-2) CK-MB (CK-2) Rel Index Total Protein Albumin Urine WBC (Auto) 01/19/17 01/19/17 01/19/17 09:21 11:45 13:02 WBC RDW Plt Count Lymph % (Auto) [place] % (Auto) Eos % (Auto) Baso % (Auto) Lymph # [place] # Seg Neutrophils % Seg Neuts % (Manual) Lymphocytes % (Manual) Seg Neutrophils # Lymphocytes # (Manual) POC ABG pH POC ABG pCO2 POC ABG pO2 Sodium 131 L Potassium Chloride 92.8 L Carbon Dioxide BUN 39 H Creatinine 1.4 H Glucose 159 H POC Glucose 135 H 125 H Uric Acid Total Bilirubin CK-MB (CK-2) 4.1 H CK-MB (CK-2) Rel Index 4.1 H Total Protein Albumin Urine WBC (Auto) 01/19/17 01/20/17 01/20/17 15:48 04:00 05:45 WBC 11.5 H RDW 18.9 H Plt Count 131 L Lymph % (Auto) [place] % (Auto) Eos % (Auto) Baso % (Auto) Lymph # [place] # Seg Neutrophils % Seg Neuts % (Manual) Lymphocytes % (Manual) Seg Neutrophils # Lymphocytes # (Manual) POC ABG pH POC ABG pCO2 POC ABG pO2 189 H Sodium 129 L Potassium Chloride 91.4 L Carbon Dioxide BUN 37 H Creatinine 1.3 H Glucose POC Glucose Uric Acid Total Bilirubin CK-MB (CK-2) CK-MB (CK-2) Rel Index Total Protein Albumin Urine WBC (Auto) 01/20/17 01/20/17 01/21/17 06:09 09:34 00:26 WBC RDW Plt Count Lymph % (Auto) [place] % (Auto) Eos % (Auto) Baso % (Auto) Lymph # [place] # Seg Neutrophils % Seg Neuts % (Manual) Lymphocytes % (Manual) Seg Neutrophils # Lymphocytes # (Manual) POC ABG pH POC ABG pCO2 POC ABG pO2 67 L Sodium Potassium Chloride Carbon Dioxide BUN Creatinine Glucose POC Glucose 109 H Uric Acid Total Bilirubin CK-MB (CK-2) CK-MB (CK-2) Rel Index Total Protein Albumin Urine WBC (Auto) 15.0 H 01/21/17 01/21/17 01/21/17 04:23 05:20 05:20 WBC 11.8 H RDW 18.9 H Plt Count 135 L Lymph % (Auto) [place] % (Auto) Eos % (Auto) Baso % (Auto) Lymph # [place] # Seg Neutrophils % Seg Neuts % (Manual) Lymphocytes % (Manual) Seg Neutrophils # Lymphocytes # (Manual) POC ABG pH 7.338 L POC ABG pCO2 48.6 H POC ABG pO2 67 L Sodium 134 L Potassium Chloride 95.5 L Carbon Dioxide BUN 38 H Creatinine 1.5 H Glucose 110 H POC Glucose Uric Acid Total Bilirubin CK-MB (CK-2) CK-MB (CK-2) Rel Index Total Protein Albumin Urine WBC (Auto) 01/21/17 01/21/17 01/21/17 05:38 18:20 22:54 WBC RDW Plt Count Lymph % (Auto) [place] % (Auto) Eos % (Auto) Baso % (Auto) Lymph # [place] # Seg Neutrophils % Seg Neuts % (Manual) Lymphocytes % (Manual) Seg Neutrophils # Lymphocytes # (Manual) POC ABG pH POC ABG pCO2 POC ABG pO2 Sodium Potassium Chloride Carbon Dioxide BUN Creatinine Glucose POC Glucose 120 H 135 H 163 H Uric Acid Total Bilirubin CK-MB (CK-2) CK-MB (CK-2) Rel Index Total Protein Albumin Urine WBC (Auto) 01/22/17 01/22/17 01/22/17 04:00 04:00 11:37 WBC 11.6 H RDW 18.7 H Plt Count 116 L Lymph % (Auto) 2.9 L [place] % (Auto) 11.1 H Eos % (Auto) Baso % (Auto) Lymph # 0.3 L [place] # 1.3 H Seg Neutrophils % 84.2 H Seg Neuts % (Manual) Lymphocytes % (Manual) Seg Neutrophils # 9.8 H Lymphocytes # (Manual) POC ABG pH POC ABG pCO2 45.2 H POC ABG pO2 Sodium 135 L Potassium Chloride 94.6 L Carbon Dioxide BUN 43 H Creatinine 1.9 H Glucose 148 H POC Glucose Uric Acid Total Bilirubin 1.60 H CK-MB (CK-2) CK-MB (CK-2) Rel Index Total Protein 5.6 L Albumin 2.8 L Urine WBC (Auto) 01/22/17 13:00 WBC RDW Plt Count Lymph % (Auto) [place] % (Auto) Eos % (Auto) Baso % (Auto) Lymph # [place] # Seg Neutrophils % Seg Neuts % (Manual) Lymphocytes % (Manual) Seg Neutrophils # Lymphocytes # (Manual) POC ABG pH POC ABG pCO2 POC ABG pO2 Sodium Potassium Chloride Carbon Dioxide BUN Creatinine Glucose POC Glucose Uric Acid 12.0 H Total Bilirubin CK-MB (CK-2) CK-MB (CK-2) Rel Index Total Protein Albumin Urine WBC (Auto) Chest x-ray: report reviewed, image reviewed (improving bilateral infiltrates)
[2017-01-22] MEDS: ZOCOR PO SCH (22:25)
[2017-01-23] MEDS: NOVOLOG SUB-Q SCH ×4 (00:06→17:33)
[2017-01-23] MEDS: DILAUDID IV PRN ×2 (04:40→21:11)
[2017-01-23 05:14] LABS: Basophils % (Auto) 0.5 % (0.0-1.8); Eosinophils % (Auto) 0.8 % (0.0-4.3); Hematocrit 39.1 % (30.3-42.9); Hemoglobin 12.9 gm/dl (10.1-14.3); Mean Corpuscular HGB Conc 33 % (30-34); Mean Corpuscular Hemoglobin 29 pg (28-32); Mean Corpuscular Volume 87 fl (79-97); Platelet Count 144 K/mm3 (140-440); Red Blood Count 4.49 M/mm3 (3.65-5.03); Red Cell Distribution Width 19.1 % (13.2-15.2)
[2017-01-23 05:33] LABS: Calcium 8.9 mg/dL (8.4-10.2); Chloride 95.1 mmol/L (98-107)
--- NOTE | 2017-01-23 08:34 | XRay Report ---
FINAL REPORT EXAM: XR CHEST 1V AP HISTORY: follow up respiratory failure TECHNIQUE: Portable semi upright PRIORS: None. FINDINGS: There is cardiomegaly and pulmonary vascular congestion. There are bilateral perihilar infiltrates. There is no pneumothorax. I cannot confirm or exclude small pleural effusions. There is a PICC line on the left side with catheter tip at SVC/right atrial junction. IMPRESSION: Findings, as stated above, are compatible with CHF.
[2017-01-23] MEDS ORDERED: LEVAQUIN 750MG/150ML 750 MG/150 ML BAG IV SCH (10:00)
[2017-01-23] MEDS: BABY ASPIRIN PO SCH (10:30)
[2017-01-23] MEDS: PEPCID PO SCH ×2 (10:31→21:10)
[2017-01-23] MEDS: LOPRESSOR PO SCH ×2 (10:31→21:10)
--- NOTE | 2017-01-23 11:39 | Progress Note ---
Assessment and Plan Assessment and plan: Patient is 71 yo woman who lives alone but has partial functional quadriplegia/ wheelchair bound (mostly uses a walker to the bathroom) with a h/o chronic hypoxic respiratory failure on 2 L oxygen at home, right sided breast cancer, morbid obesity bmi 52.1, CHF, nonobstructive coronary artery disease and dyslipidemia who presented to [facility] emergency room on 01/15/2017 with complaints of shortness of breath and rapid heartbeat. EKG showed tachyarrhythmia, diagnosed as accelerated junctional per cardiology. Chest x-ray was read as cardiomegaly with pulmonary vascular congestion more pronounced compared to previous study, probable CHF. 01/15/2017 2D echocardiogram reported as global left ventricular systolic function is severely decreased, estimated EF is 10-15%, left atrium mildly dilated, right ventricle is mild to moderately dilated, right ventricular global systolic function is moderately reduced, right atrium is mild to moderate dilated, trace AR, no , mitral annular calcification, mild MR, no ms, moderate TR, right ventricular systolic function is calculated at 48mmhg, there is small pericardial effusion which does not appear to be hemodynamically significant, large left pleural effusion is present. -Acute on chronic systolic heart failure, worsening: Cardiology is following, request patient be transferred to the ICU for worsening CHF, treated with Diuresis, add ASA -Accelerated junction arrhythmia, uncontrolled: Cardiology is following, bibliographic services specialist evaluated -Acute renal failure, vasomotor nephropathy present on admission: Consulted nephrology -Hyperkalemia, mild, will restart her home insulin: monitor closely, still on Diovan per Dr. Cedeño, it appears benefits>risk at this point, await Nephrology evaluation; she had already received dose today. Will stop -Hyponatremia due to hyperglycemia: Control blood sugars -Uncontrolled type 2 diabetes mellitus: Restart home regimen -Sepsis pneumonia, pneumonia may have been poa, unable to say for sure with the chf/pulmonary vascular congestion on admission: continue to monitor and treat with abx -Chronic hypoxic respiratory failure due to CHF: Continue oxygen -DVT prophylaxis: scd only, heparin stopped due to dropping plt counts -Acute metabolic encephalopathy, poa -BMI 52.1, morbid obesity, poa: dry starch supervisor evaluation. -Acute on chronic hypoxic respiratory failure, poa: intubated, trying to wean off ventilator full code 01/18/17: Patient was transferred to the ICU in the evening and started on Milrinone drip after EP re-evaluation 01/19/17: I saw patient the morning prior to the cardiac arrest, she was doing better without any new complaints and she felt like the swelling had gotten better, then ZECHARIAH AGUILAR called at 1135. Brush Finisher, Dr. Rios was close and ran the code. It appears patient was being washed up and she had bradycardia down to PEA, ACLS and chest compressions were started, patient pulse was restored with 2 doses of epinephrine. When Dr. Rios was intubating, he noticed gastric particles in the back of her throat; therefore, patient most likely aspirated, became hypoxic and went into PEA. During the CODE BLUE, she had more pronounced wide complex tachycardia; therefore, Primacor discontinued. Cardiology Dr. Campos came to the bedside and gave her Amiodarone 150 mg IV bolus 1 f(drip not started). D/w daughter Olivia, listed next of kin at [phone], ==>continue full code 01/20/17: She spiked a fever, trach sputum cultures has Preliminary growth of gram-positive cocci in pairs and clusters, started IV vancomycin and IV Levaquin , she is allergic to penicillin, consulted infectious disease physician, ordered blood cultures 2 sets and urinalysis, reviewed chest x-ray. She most likely has aspiration pneumonitis, may need to be on clindamycin also for anaerobic coverage The high probability of a clinically significant, sudden or life threatening deterioration of the [neurologic,cardiac] system(s) required my full and direct attention, intervention and personal management. The aggregate critical care time was [ 33 ] minutes. This time is in addition to time spent performing reported procedures but includes the following: [x] Data Review and interpretation [x] Patient assessment and monitoring of vital signs [x] Documentation [x] Medication orders and management 01/21/17: Issue today is borderline low blood pressure but Alyson is above 60, cardiology notified, complex medical decision because her EF is so low and IV fluids may cause pulmonary edema. Diprivan was changed to fentanyl drip. The fever is gone. Pt is on 3 IV antibiotics. Appreciate infectious disease note. 01/22/17: looks much better today. following commands, weaning attempts. IV Abx narrowed down. Urine ctx pending. plt is dropping, sq heparin stopped, repeat. 01/23/17: Extubated yesterday, using BiPAP intermittently she is on high flow now , 20 L. Heart rate still uncontrolled at 120s blood pressures hold steady=->RN will notify cardiology. Question need amiodarone. Keep in ICU due to respiratory status. Continue IV antibiotics. Platelet counts recovered, continue to hold heparin repeat CBC a.m. restart tomorrow for DVT prophylaxis is if platelet Counts stable. Urine culture still pending.The high probability of a clinically significant, sudden or life threatening deterioration of the [ neurologic,cardiac] system(s) required my full and direct attention, intervention and personal management. The aggregate critical care time was [32 ] minutes. This time is in addition to time spent performing reported procedures but includes the following: [x] Data Review and interpretation [x] Patient assessment and monitoring of vital signs [x] Documentation [x] Medication orders and management History Interval history: Patient seen and examined. Follow up on cardiac arrest resolved; extubated yesterday 01/22/17. Overnight uneventful. Nursing notes reviewed. Hospitalist Physical - Physical exam Narrative exam: GEN: ill appearing bmi 52.1 moderate resp distress with increase accessory muscle, a/o x 2 (thought the year was 2019) mild with new consult issues within the 283 was normal was sufficiently the right patient right the echo was last NECK: SUPPLE, NO THYROMEGALY, + JVD, NO LAD CVS: irregular irregular, NORMAL S1S2 LUNGS/CHEST: Coarse breath sounds bilaterally NORMAL CHEST EXPANSION B, adequate AIR ENTRY B ABD: SOFT, distended GBS, NO REBOUND OR GUARDING EXT/SKIN: SIGNIFICANT EDEMA justino MSK: Spontaneous movement X 4 EXTREMITIES NEURO: CN 2-12 GROSSLY INTACT, follow most commands without gross deficits PSY: anxious - Constitutional Vitals: Temp Pulse Resp BP Pulse Ox 97.4 F L 120 H 19 93/53 94 01/23/17 08:00 01/23/17 11:01 01/23/17 11:01 01/23/17 11:01 01/23/17 11:01 General appearance: Present: obese (morbidly obese) Results - Labs CBC & Chem 7: 01/23/17 04:10 01/23/17 04:10 Labs: Laboratory Last Values WBC 10.0 K/mm3 (4.5-11.0) 01/23/17 04:10 RBC 4.49 M/mm3 (3.65-5.03) 01/23/17 04:10 Hgb 12.9 gm/dl (10.1-14.3) 01/23/17 04:10 Hct 39.1 % (30.3-42.9) 01/23/17 04:10 MCV 87 fl (79-97) 01/23/17 04:10 MCH 29 pg (28-32) 01/23/17 04:10 MCHC 33 % (30-34) 01/23/17 04:10 RDW 19.1 % (13.2-15.2) H 01/23/17 04:10 Plt Count 144 K/mm3 (140-440) 01/23/17 04:10 Lymph % (Auto) 3.3 % (13.4-35.0) L 01/23/17 04:10 [place] % (Auto) 11.5 % (0.0-7.3) H 01/23/17 04:10 Eos % (Auto) 0.8 % (0.0-4.3) 01/23/17 04:10 Baso % (Auto) 0.5 % (0.0-1.8) 01/23/17 04:10 Lymph # 0.3 K/mm3 (1.2-5.4) L 01/23/17 04:10 [place] # 1.2 K/mm3 (0.0-0.8) H 01/23/17 04:10 Eos # 0.1 K/mm3 (0.0-0.4) 01/23/17 04:10 Baso # 0.0 K/mm3 (0.0-0.1) 01/23/17 04:10 Add Manual Diff Complete 01/15/17 23:40 Total Counted 100 01/15/17 23:40 Seg Neutrophils % 83.9 % (40.0-70.0) H 01/23/17 04:10 Seg Neuts % (Manual) 82.0 % (40.0-70.0) H 01/15/17 23:40 Band Neutrophils % 3.0 % 01/15/17 23:40 Lymphocytes % (Manual) 7.0 % (13.4-35.0) L 01/15/17 23:40 Reactive Lymphs % (Man) 0 % 01/15/17 23:40 Monocytes % (Manual) 6.0 % (0.0-7.3) 01/15/17 23:40 Eosinophils % (Manual) 2.0 % (0.0-4.3) 01/15/17 23:40 Basophils % (Manual) 0 % (0.0-1.8) 01/15/17 23:40 Metamyelocytes % 0 % 01/15/17 23:40 Myelocytes % 0 % 01/15/17 23:40 Promyelocytes % 0 % 01/15/17 23:40 Blast Cells % 0 % 01/15/17 23:40 Nucleated RBC % Not Reportable 01/15/17 23:40 Seg Neutrophils # 8.4 K/mm3 (1.8-7.7) H 01/23/17 04:10 Seg Neutrophils # Man 4.7 K/mm3 (1.8-7.7) 01/15/17 23:40 Band Neutrophils # 0.2 K/mm3 01/15/17 23:40 Lymphocytes # (Manual) 0.4 K/mm3 (1.2-5.4) L 01/15/17 23:40 Abs React Lymphs (Man) 0.0 K/mm3 01/15/17 23:40 Monocytes # (Manual) 0.3 K/mm3 (0.0-0.8) 01/15/17 23:40 Eosinophils # (Manual) 0.1 K/mm3 (0.0-0.4) 01/15/17 23:40 Basophils # (Manual) 0.0 K/mm3 (0.0-0.1) 01/15/17 23:40 Metamyelocytes # 0.0 K/mm3 01/15/17 23:40 Myelocytes # 0.0 K/mm3 01/15/17 23:40 Promyelocytes # 0.0 K/mm3 01/15/17 23:40 Blast Cells # 0.0 K/mm3 01/15/17 23:40 WBC Morphology Not Reportable 01/15/17 23:40 Hypersegmented Neuts Not Reportable 01/15/17 23:40 Hyposegmented Neuts Not Reportable 01/15/17 23:40 Hypogranular Neuts Not Reportable 01/15/17 23:40 Smudge Cells Not Reportable 01/15/17 23:40 Toxic Granulation Not Reportable 01/15/17 23:40 Toxic Vacuolation Not Reportable 01/15/17 23:40 Dohle Bodies Not Reportable 01/15/17 23:40 Pelger-Huet Anomaly Not Reportable 01/15/17 23:40 Yusuf Rods Not Reportable 01/15/17 23:40 Platelet Estimate Appears normal 01/15/17 23:40 Clumped Platelets 1+ 01/15/17 23:40 Plt Clumps, EDTA Not Reportable 01/15/17 23:40 Large Platelets Not Reportable 01/15/17 23:40 Giant Platelets Not Reportable 01/15/17 23:40 Platelet Satelliting Not Reportable 01/15/17 23:40 Plt Morphology Comment Not Reportable 01/15/17 23:40 RBC Morphology Not Reportable 01/15/17 23:40 Dimorphic RBCs Not Reportable 01/15/17 23:40 Polychromasia Not Reportable 01/15/17 23:40 Hypochromasia Not Reportable 01/15/17 23:40 Poikilocytosis Not Reportable 01/15/17 23:40 Anisocytosis 1+ 01/15/17 23:40 Microcytosis Not Reportable 01/15/17 23:40 Macrocytosis Not Reportable 01/15/17 23:40 Spherocytes Not Reportable 01/15/17 23:40 Pappenheimer Bodies Not Reportable 01/15/17 23:40 Sickle Cells Not Reportable 01/15/17 23:40 Target Cells Not Reportable 01/15/17 23:40 Tear Drop Cells Not Reportable 01/15/17 23:40 Ovalocytes Not Reportable 01/15/17 23:40 Helmet Cells Not Reportable 01/15/17 23:40 [place] Bodies Not Reportable 01/15/17 23:40 [place] Rings Not Reportable 01/15/17 23:40 [place] Cells Not Reportable 01/15/17 23:40 Bite Cells Not Reportable 01/15/17 23:40 Crenated Cell Not Reportable 01/15/17 23:40 Elliptocytes 1+ 01/15/17 23:40 Acanthocytes (Spur) Not Reportable 01/15/17 23:40 Rouleaux Not Reportable 01/15/17 23:40 Hemoglobin C Crystals Not Reportable 01/15/17 23:40 Schistocytes Not Reportable 01/15/17 23:40 Malaria parasites Not Reportable 01/15/17 23:40 [place] Bodies Not Reportable 01/15/17 23:40 Hem Pathologist Commnt No 01/15/17 23:40 POC ABG pH 7.358 (7.35-7.45) 01/22/17 11:37 POC ABG pCO2 45.2 (35-45) H 01/22/17 11:37 POC ABG pO2 82 (80-105) 01/22/17 11:37 POC ABG HCO3 25.5 01/22/17 11:37 POC ABG Total CO2 27 01/22/17 11:37 POC ABG O2 Sat 95 01/22/17 11:37 POC ABG Base Excess 0 01/22/17 11:37 FiO2 35 % 01/22/17 11:37 Sodium 134 mmol/L (137-145) L 01/23/17 04:10 Potassium 4.0 mmol/L (3.6-5.0) 01/23/17 04:10 Chloride 95.1 mmol/L (98-107) L 01/23/17 04:10 Carbon Dioxide 25 mmol/L (22-30) 01/23/17 04:10 Anion Gap 18 mmol/L 01/23/17 04:10 BUN 48 mg/dL (7-17) H 01/23/17 04:10 Creatinine 2.0 mg/dL (0.7-1.2) H 01/23/17 04:10 Estimated GFR 30 ml/min 01/23/17 04:10 BUN/Creatinine Ratio 24.00 % 01/23/17 04:10 Glucose 197 mg/dL (65-100) H 01/23/17 04:10 POC Glucose 186 (70-105) H 01/23/17 05:19 Osmolality 298 Mosm/kg 01/22/17 13:00 Uric Acid 12.0 mg/dL (3.5-7.6) H 01/22/17 13:00 Calcium 8.9 mg/dL (8.4-10.2) 01/23/17 04:10 Magnesium 2.00 mg/dL (1.7-2.3) 01/22/17 04:00 Total Bilirubin 1.60 mg/dL (0.1-1.2) H 01/22/17 04:00 AST 25 units/L (5-40) 01/22/17 04:00 ALT 12 units/L (7-56) 01/22/17 04:00 Alkaline Phosphatase 63 units/L (35-129) 01/22/17 04:00 Total Creatine Kinase 98 units/L (30-135) 01/19/17 13:02 CK-MB (CK-2) 4.1 ng/mL (0.0-4.0) H 01/19/17 13:02 CK-MB (CK-2) Rel Index 4.1 (0-4) H 01/19/17 13:02 Troponin T 0.022 ng/mL (0.00-0.029) 01/19/17 13:02 NT-Pro-B Natriuret Pep 8400 pg/mL (0-900) H 01/15/17 09:03 Total Protein 5.6 g/dL (6.3-8.2) L 01/22/17 04:00 Albumin 2.8 g/dL (3.9-5) L 01/22/17 04:00 Albumin/Globulin Ratio 1.0 % 01/22/17 04:00 Urine Color Yellow (Yellow) 01/20/17 09:34 Urine Turbidity Clear (Clear) 01/20/17 09:34 Urine pH 5.0 (5.0-7.0) 01/20/17 09:34 Ur Specific [place] 1.006 (1.003-1.030) 01/20/17 09:34 Urine Protein <15 mg/dl mg/dL (Negative) 01/20/17 09:34 Urine Glucose (UA) Neg mg/dL (Negative) 01/20/17 09:34 Urine Ketones Neg mg/dL (Negative) 01/20/17 09:34 Urine Blood Mod (Negative) 01/20/17 09:34 Urine Nitrite Neg (Negative) 01/20/17 09:34 Urine Bilirubin Neg (Negative) 01/20/17 09:34 Urine Urobilinogen < 2.0 mg/dL (<2.0) 01/20/17 09:34 Ur Leukocyte Esterase Mod (Negative) 01/20/17 09:34 Urine WBC (Auto) 15.0 /HPF (0.0-6.0) H 01/20/17 09:34 Urine RBC (Auto) 12.0 /HPF (0.0-6.0) 01/20/17 09:34 U Epithel Cells (Auto) 2.0 /HPF (0-13.0) 01/20/17 09:34 Urine Bacteria (Auto) 1+ /HPF (Negative) 01/20/17 09:34 Amorphous Crystals Few 01/20/17 09:34 Urine Yeast (Budding) 1+ /HPF 01/20/17 09:34 Vancomycin Trough 16.5 ug/mL (5.0-20.0) 01/22/17 13:00
[2017-01-23] MEDS: VANCOMYCIN 2,000 MG in NACL 0.9% 500 ML 500 ML IV SCH (13:16)
[2017-01-23] MEDS: TYLENOL PO PRN (13:22)
--- NOTE | 2017-01-23 15:11 | Progress Note ---
Assessment and Plan Imp: 1. Dilated CMP 2. Acute systolic CHF 3. CIERRA 4. Acute respiratory failure, hypoxia 5. Morbid obesity 6. s/p PEA arrest; may have aspirated 7. SIRS +/- aspiration pneumonitis +/- UTI Rec: 1. Still SOB and hypoxic; cont. HFNC alternating with BIPAP; repeat ABG today 2. Holding Lasix 2/2 CIERRA and low BP 3. DVT PPx -> SCDs in place so PE doubtful; consider resuming DVT PPx in form of Lovenox or Arixtra given improvement in platelets; HIT unlikely 4. ABX per ID 5. Coreg stopped due to hypotension and ARB held due to CIERRA/hyperkalemia; Lopressor held due to low BP; do not believe the elevated HR and BP is sepsis- related; would discuss with cardiology management for this -> ? digoxin, ? resume amiodarone, etc.; would only start pressors if MAP consistently below 60 as do not want to increase afterload with LVEF of 10% 6. Cont. TFs; plan ST swallow eval. once more stable 7. Needs to remain in ICU as remains critically ill CCT 31 minutes; no family present today Subjective Date of service: 01/23/17 Principal diagnosis: CHF exacerbation Interval history: No further fever. Awake, alert. Extubated, now on HFNC. Hemoptysis is better. Still coughing and dyspneic. No chest pain. Active Medications Acetaminophen (Tylenol) 650 mg PO Q4H PRN PRN Reason: Pain MILD(1-3)/Fever >100.5/LIMA Last Admin: 01/23/17 13:22 Dose: 650 mg Lipase/Protease/Amylase (Pancreaze Dr 10,500 Unit) 1 each FEEDTUBE PRN PRN PRN Reason: For Clogged Feeding Tube Aspirin (Baby Aspirin) 81 mg PO QDAY [facility] Last Admin: 01/23/17 10:30 Dose: 81 mg Bisacodyl (Dulcolax) 10 mg MD QDAY PRN PRN Reason: Constipation unrelieved by MOM Dextrose (D50w (25gm)) 50 ml IV PRN PRN PRN Reason: Hypoglycemia Famotidine (Pepcid) 20 mg PO BID [facility] Last Admin: 01/23/17 10:31 Dose: 20 mg Hydromorphone HCl (Dilaudid) 0.5 mg IV Q3H PRN PRN Reason: Pain , Severe (7-10) Last Admin: 01/23/17 04:40 Dose: 0.5 mg Hydrophilic Ointment (Vaseline Lip Therapy) 1 applic TP Q2HR PRN PRN Reason: Dry Lips Vancomycin HCl 2,000 mg/ (Sodium Chloride) 540 mls @ 250 mls/hr IV Q24H [facility] Last Admin: 01/23/17 13:16 Dose: 250 mls/hr Insulin Aspart (Novolog) 0 units SUB-Q Q6HR [facility] PRN Reason: Protocol Last Admin: 01/23/17 13:16 Dose: Not Given Metoclopramide HCl (Reglan) 10 mg IV Q8H PRN PRN Reason: Nausea And Vomiting Last Admin: 01/21/17 23:36 Dose: 10 mg Metoprolol Tartrate (Lopressor) 25 mg PO BID [facility] Last Admin: 01/23/17 10:31 Dose: Not Given Multi-Ingred Cream/Lotion/Oil/Oint (Artificial Tears Ophth Oint) 1 applic OU Q4HR PRN PRN Reason: Dry Eye(s) Oxycodone/Acetaminophen (Percocet 5/325) 1 tab PO Q6H PRN PRN Reason: Pain, Moderate (4-6) Last Admin: 01/21/17 23:35 Dose: 1 tab Simple Syrup (Simple Syrup) 15 ml FEEDTUBE PRN PRN PRN Reason: Hypoglycemia Simple Syrup (Simple Syrup) 30 ml FEEDTUBE PRN PRN PRN Reason: Hypoglycemia Simvastatin (Zocor) 10 mg PO QHS [facility] Last Admin: 01/22/17 22:25 Dose: 10 mg Sodium Bicarbonate (Sodium Bicarbonate) 325 mg FEEDTUBE PRN PRN PRN Reason: For Clogged Feeding Tube Sodium Chloride (Sodium Chloride Flush Syringe 10 Ml) 10 ml IV PRN PRN PRN Reason: LINE FLUSH Vancomycin HCl (Vancomycin Pharmacy To Dose) 1 each IV PKCONSULT [facility] PRN Reason: Protocol Objective Vital Signs - 12hr 01/23/17 01/23/17 01/23/17 03:43 04:00 04:07 Temperature 97.8 F Pulse Rate 136 H 133 H Respiratory 23 Rate Respiratory Rate [Head] Blood Pressure O2 Sat by Pulse 99 Oximetry 01/23/17 01/23/17 01/23/17 05:01 06:01 07:00 Temperature Pulse Rate 135 H 125 H 131 H Respiratory 19 19 16 Rate Respiratory Rate [Head] Blood Pressure 104/66 94/66 110/68 O2 Sat by Pulse 96 95 95 Oximetry 01/23/17 01/23/17 01/23/17 07:27 08:00 09:01 Temperature 97.4 F L Pulse Rate 135 H 126 H Respiratory 25 H 26 H Rate Respiratory Rate [Head] Blood Pressure 98/62 122/65 O2 Sat by Pulse 99 96 98 Oximetry 01/23/17 01/23/17 01/23/17 10:00 10:01 10:31 Temperature Pulse Rate 135 H 110 H Respiratory 19 Rate Respiratory 23 Rate [Head] Blood Pressure 81/51 81/51 O2 Sat by Pulse Oximetry 01/23/17 01/23/17 01/23/17 11:01 12:00 12:01 Temperature 97.3 F L Pulse Rate 120 H 113 H 109 H Respiratory 19 20 15 Rate Respiratory Rate [Head] Blood Pressure 93/53 93/53 O2 Sat by Pulse 94 99 99 Oximetry 01/23/17 01/23/17 01/23/17 13:00 13:22 14:36 Temperature Pulse Rate 113 H 93 H Respiratory 17 20 21 Rate Respiratory Rate [Head] Blood Pressure 93/59 97/60 O2 Sat by Pulse 96 100 Oximetry Constitutional: other (critically ill on HFNC) Eyes: non-icteric ENT: oropharynx moist Neck: supple Effort: mildly labored Ascultation: Bilateral: rhonchi (bilateral) Cardiovascular: regular rate and rhythm (tachy, RR) Gastrointestinal: normoactive bowel sounds, soft, other (obese) Integumentary: normal Extremities: no cyanosis, no edema, pink and warm, other (SCDs are in place) Neurologic: normal mental status, non-focal exam, pupils equal and round Psychiatric: mood appropriate, affect normal CBC and BMP: 01/23/17 04:10 01/23/17 04:10 ABG, PT/INR, D-dimer: ABG POC ABG pH 7.358 (7.35-7.45) 01/22/17 11:37 POC ABG pCO2 45.2 (35-45) H 01/22/17 11:37 POC ABG pO2 82 (80-105) 01/22/17 11:37 POC ABG HCO3 25.5 01/22/17 11:37 POC ABG Total CO2 27 01/22/17 11:37 POC ABG O2 Sat 95 01/22/17 11:37 Abnormal lab findings: Abnormal Labs 01/15/17 01/15/17 01/15/17 17:45 22:06 23:40 WBC RDW 18.6 H Plt Count 114 L Lymph % (Auto) [place] % (Auto) Eos % (Auto) Baso % (Auto) Lymph # [place] # Seg Neutrophils % Seg Neuts % (Manual) 82.0 H Lymphocytes % (Manual) 7.0 L Seg Neutrophils # Lymphocytes # (Manual) 0.4 L POC ABG pH POC ABG pCO2 POC ABG pO2 Sodium Potassium Chloride Carbon Dioxide BUN Creatinine Glucose POC Glucose 147 H 135 H Uric Acid Total Bilirubin CK-MB (CK-2) CK-MB (CK-2) Rel Index Total Protein Albumin Urine WBC (Auto) 01/15/17 01/16/17 01/16/17 23:40 03:44 08:49 WBC RDW Plt Count Lymph % (Auto) [place] % (Auto) Eos % (Auto) Baso % (Auto) Lymph # [place] # Seg Neutrophils % Seg Neuts % (Manual) Lymphocytes % (Manual) Seg Neutrophils # Lymphocytes # (Manual) POC ABG pH POC ABG pCO2 POC ABG pO2 Sodium 132 L Potassium 5.1 H Chloride 95.5 L Carbon Dioxide 20 L BUN 36 H Creatinine Glucose 128 H POC Glucose 117 H 126 H Uric Acid Total Bilirubin CK-MB (CK-2) CK-MB (CK-2) Rel Index Total Protein Albumin Urine WBC (Auto) 01/16/17 01/16/17 01/16/17 08:56 08:56 12:06 WBC RDW 19.2 H Plt Count Lymph % (Auto) 6.6 L [place] % (Auto) 12.0 H Eos % (Auto) 5.8 H Baso % (Auto) 1.9 H Lymph # 0.3 L [place] # Seg Neutrophils % 73.7 H Seg Neuts % (Manual) Lymphocytes % (Manual) Seg Neutrophils # Lymphocytes # (Manual) POC ABG pH POC ABG pCO2 POC ABG pO2 Sodium 132 L Potassium Chloride 95.1 L Carbon Dioxide 19 L BUN 36 H Creatinine 1.3 H Glucose 129 H POC Glucose 172 H Uric Acid Total Bilirubin 1.40 H CK-MB (CK-2) CK-MB (CK-2) Rel Index Total Protein 6.2 L Albumin 3.1 L Urine WBC (Auto) 01/16/17 01/17/17 01/17/17 22:34 05:29 05:29 WBC RDW 19.2 H Plt Count Lymph % (Auto) 5.9 L [place] % (Auto) 10.8 H Eos % (Auto) Baso % (Auto) Lymph # 0.4 L [place] # Seg Neutrophils % 80.1 H Seg Neuts % (Manual) Lymphocytes % (Manual) Seg Neutrophils # Lymphocytes # (Manual) POC ABG pH POC ABG pCO2 POC ABG pO2 Sodium 131 L Potassium 5.3 H Chloride 94.8 L Carbon Dioxide 21 L BUN 39 H Creatinine 1.4 H Glucose 196 H POC Glucose 210 H Uric Acid Total Bilirubin CK-MB (CK-2) CK-MB (CK-2) Rel Index Total Protein Albumin Urine WBC (Auto) 01/17/17 01/17/17 01/17/17 07:39 17:39 22:45 WBC RDW Plt Count Lymph % (Auto) [place] % (Auto) Eos % (Auto) Baso % (Auto) Lymph # [place] # Seg Neutrophils % Seg Neuts % (Manual) Lymphocytes % (Manual) Seg Neutrophils # Lymphocytes # (Manual) POC ABG pH POC ABG pCO2 POC ABG pO2 Sodium Potassium Chloride Carbon Dioxide BUN Creatinine Glucose POC Glucose 198 H 208 H 223 H Uric Acid Total Bilirubin CK-MB (CK-2) CK-MB (CK-2) Rel Index Total Protein Albumin Urine WBC (Auto) 01/18/17 01/18/17 01/18/17 05:07 08:32 12:24 WBC RDW Plt Count Lymph % (Auto) [place] % (Auto) Eos % (Auto) Baso % (Auto) Lymph # [place] # Seg Neutrophils % Seg Neuts % (Manual) Lymphocytes % (Manual) Seg Neutrophils # Lymphocytes # (Manual) POC ABG pH POC ABG pCO2 POC ABG pO2 Sodium 129 L Potassium 5.2 H Chloride 92.0 L Carbon Dioxide BUN 41 H Creatinine 1.5 H Glucose 228 H POC Glucose 236 H 230 H Uric Acid Total Bilirubin CK-MB (CK-2) CK-MB (CK-2) Rel Index Total Protein Albumin Urine WBC (Auto) 01/18/17 01/19/17 01/19/17 16:00 03:46 03:46 WBC RDW 18.9 H Plt Count Lymph % (Auto) [place] % (Auto) Eos % (Auto) Baso % (Auto) Lymph # [place] # Seg Neutrophils % Seg Neuts % (Manual) Lymphocytes % (Manual) Seg Neutrophils # Lymphocytes # (Manual) POC ABG pH POC ABG pCO2 POC ABG pO2 Sodium 128 L Potassium Chloride 92.3 L Carbon Dioxide 21 L BUN 40 H Creatinine 1.4 H Glucose 178 H POC Glucose 253 H Uric Acid Total Bilirubin CK-MB (CK-2) CK-MB (CK-2) Rel Index Total Protein Albumin Urine WBC (Auto) 01/19/17 01/19/17 01/19/17 09:21 11:45 13:02 WBC RDW Plt Count Lymph % (Auto) [place] % (Auto) Eos % (Auto) Baso % (Auto) Lymph # [place] # Seg Neutrophils % Seg Neuts % (Manual) Lymphocytes % (Manual) Seg Neutrophils # Lymphocytes # (Manual) POC ABG pH POC ABG pCO2 POC ABG pO2 Sodium 131 L Potassium Chloride 92.8 L Carbon Dioxide BUN 39 H Creatinine 1.4 H Glucose 159 H POC Glucose 135 H 125 H Uric Acid Total Bilirubin CK-MB (CK-2) 4.1 H CK-MB (CK-2) Rel Index 4.1 H Total Protein Albumin Urine WBC (Auto) 01/19/17 01/20/17 01/20/17 15:48 04:00 05:45 WBC 11.5 H RDW 18.9 H Plt Count 131 L Lymph % (Auto) [place] % (Auto) Eos % (Auto) Baso % (Auto) Lymph # [place] # Seg Neutrophils % Seg Neuts % (Manual) Lymphocytes % (Manual) Seg Neutrophils # Lymphocytes # (Manual) POC ABG pH POC ABG pCO2 POC ABG pO2 189 H Sodium 129 L Potassium Chloride 91.4 L Carbon Dioxide BUN 37 H Creatinine 1.3 H Glucose POC Glucose Uric Acid Total Bilirubin CK-MB (CK-2) CK-MB (CK-2) Rel Index Total Protein Albumin Urine WBC (Auto) 01/20/17 01/20/17 01/21/17 06:09 09:34 00:26 WBC RDW Plt Count Lymph % (Auto) [place] % (Auto) Eos % (Auto) Baso % (Auto) Lymph # [place] # Seg Neutrophils % Seg Neuts % (Manual) Lymphocytes % (Manual) Seg Neutrophils # Lymphocytes # (Manual) POC ABG pH POC ABG pCO2 POC ABG pO2 67 L Sodium Potassium Chloride Carbon Dioxide BUN Creatinine Glucose POC Glucose 109 H Uric Acid Total Bilirubin CK-MB (CK-2) CK-MB (CK-2) Rel Index Total Protein Albumin Urine WBC (Auto) 15.0 H 01/21/17 01/21/17 01/21/17 04:23 05:20 05:20 WBC 11.8 H RDW 18.9 H Plt Count 135 L Lymph % (Auto) [place] % (Auto) Eos % (Auto) Baso % (Auto) Lymph # [place] # Seg Neutrophils % Seg Neuts % (Manual) Lymphocytes % (Manual) Seg Neutrophils # Lymphocytes # (Manual) POC ABG pH 7.338 L POC ABG pCO2 48.6 H POC ABG pO2 67 L Sodium 134 L Potassium Chloride 95.5 L Carbon Dioxide BUN 38 H Creatinine 1.5 H Glucose 110 H POC Glucose Uric Acid Total Bilirubin CK-MB (CK-2) CK-MB (CK-2) Rel Index Total Protein Albumin Urine WBC (Auto) 01/21/17 01/21/17 01/21/17 05:38 18:20 22:54 WBC RDW Plt Count Lymph % (Auto) [place] % (Auto) Eos % (Auto) Baso % (Auto) Lymph # [place] # Seg Neutrophils % Seg Neuts % (Manual) Lymphocytes % (Manual) Seg Neutrophils # Lymphocytes # (Manual) POC ABG pH POC ABG pCO2 POC ABG pO2 Sodium Potassium Chloride Carbon Dioxide BUN Creatinine Glucose POC Glucose 120 H 135 H 163 H Uric Acid Total Bilirubin CK-MB (CK-2) CK-MB (CK-2) Rel Index Total Protein Albumin Urine WBC (Auto) 01/22/17 01/22/17 01/22/17 04:00 04:00 11:27 WBC 11.6 H RDW 18.7 H Plt Count 116 L Lymph % (Auto) 2.9 L [place] % (Auto) 11.1 H Eos % (Auto) Baso % (Auto) Lymph # 0.3 L [place] # 1.3 H Seg Neutrophils % 84.2 H Seg Neuts % (Manual) Lymphocytes % (Manual) Seg Neutrophils # 9.8 H Lymphocytes # (Manual) POC ABG pH POC ABG pCO2 POC ABG pO2 Sodium 135 L Potassium Chloride 94.6 L Carbon Dioxide BUN 43 H Creatinine 1.9 H Glucose 148 H POC Glucose 151 H Uric Acid Total Bilirubin 1.60 H CK-MB (CK-2) CK-MB (CK-2) Rel Index Total Protein 5.6 L Albumin 2.8 L Urine WBC (Auto) 01/22/17 01/22/17 01/22/17 11:37 13:00 17:14 WBC RDW Plt Count Lymph % (Auto) [place] % (Auto) Eos % (Auto) Baso % (Auto) Lymph # [place] # Seg Neutrophils % Seg Neuts % (Manual) Lymphocytes % (Manual) Seg Neutrophils # Lymphocytes # (Manual) POC ABG pH POC ABG pCO2 45.2 H POC ABG pO2 Sodium Potassium Chloride Carbon Dioxide BUN Creatinine Glucose POC Glucose 178 H Uric Acid 12.0 H Total Bilirubin CK-MB (CK-2) CK-MB (CK-2) Rel Index Total Protein Albumin Urine WBC (Auto) 01/22/17 01/23/17 01/23/17 23:33 04:10 04:10 WBC RDW 19.1 H Plt Count Lymph % (Auto) 3.3 L [place] % (Auto) 11.5 H Eos % (Auto) Baso % (Auto) Lymph # 0.3 L [place] # 1.2 H Seg Neutrophils % 83.9 H Seg Neuts % (Manual) Lymphocytes % (Manual) Seg Neutrophils # 8.4 H Lymphocytes # (Manual) POC ABG pH POC ABG pCO2 POC ABG pO2 Sodium 134 L Potassium Chloride 95.1 L Carbon Dioxide BUN 48 H Creatinine 2.0 H Glucose 197 H POC Glucose 202 H Uric Acid Total Bilirubin CK-MB (CK-2) CK-MB (CK-2) Rel Index Total Protein Albumin Urine WBC (Auto) 01/23/17 05:19 WBC RDW Plt Count Lymph % (Auto) [place] % (Auto) Eos % (Auto) Baso % (Auto) Lymph # [place] # Seg Neutrophils % Seg Neuts % (Manual) Lymphocytes % (Manual) Seg Neutrophils # Lymphocytes # (Manual) POC ABG pH POC ABG pCO2 POC ABG pO2 Sodium Potassium Chloride Carbon Dioxide BUN Creatinine Glucose POC Glucose 186 H Uric Acid Total Bilirubin CK-MB (CK-2) CK-MB (CK-2) Rel Index Total Protein Albumin Urine WBC (Auto) Chest x-ray: report reviewed, image reviewed (chf)
[2017-01-23 17:14] LABS: ISTAT Base Excess -1; ISTAT HCO3 25.4; ISTAT PCO2 49.6 (35-45); ISTAT PH 7.317 (7.35-7.45); ISTAT PO2 93 (80-105); ISTAT SO2 96; ISTAT TCO2 27
[2017-01-23] MEDS: ZOCOR PO SCH (21:11)
[2017-01-24] MEDS: NOVOLOG SUB-Q SCH ×4 (01:09→18:22)
[2017-01-24] MEDS: DILAUDID IV PRN ×2 (02:38→18:22)
[2017-01-24 05:57] LABS: Hematocrit 37.9 % (30.3-42.9); Hemoglobin 12.4 gm/dl (10.1-14.3); Mean Corpuscular HGB Conc 33 % (30-34); Mean Corpuscular Hemoglobin 28 pg (28-32); Mean Corpuscular Volume 87 fl (79-97); Platelet Count 138 K/mm3 (140-440); Red Blood Count 4.36 M/mm3 (3.65-5.03); Red Cell Distribution Width 18.6 % (13.2-15.2); White Blood Count 7.2 K/mm3 (4.5-11.0)
[2017-01-24 06:19] LABS: Alanine Aminotransferase 7 units/L (7-56); Albumin 1.4 g/dL (3.9-5); Albumin/Globulin Ratio 0.9 %; Alkaline Phosphatase 33 units/L (35-129); Blood Urea Nitrogen 34 mg/dL (7-17); Carbon Dioxide 15 mmol/L (22-30); Glucose 138 mg/dL (65-100)
[2017-01-24 06:33] LABS: Calcium 4.8 mg/dL (8.4-10.2)
[2017-01-24 06:34] LABS: Anion Gap 12 mmol/L; Sodium 145 mmol/L (137-145)
[2017-01-24 06:48] LABS: Blastocytes % (Manual) 0 %
[2017-01-24 06:49] LABS: Diff Status Complete; Platelet Estimate Consistent w Auto; RBC Morphology Normal
[2017-01-24] MEDS ORDERED: POTASSIUM CHLORIDE FEEDTUBE ONE (07:55)
[2017-01-24] MEDS ORDERED: MAGNESIUM SULFATE 2GM/50ML 2 GM/50 ML BAG IV ONE (07:55)
[2017-01-24] MEDS ORDERED: KCL 10MEQ/100ML 10 MEQ/100 ML BAG IV SCH (08:00)
--- NOTE | 2017-01-24 08:35 | XRay Report ---
Portable chest: Respiratory failure. The heart is big and there is vascular congestion. There is a right pleural effusion. Nasogastric and left PICC line tubes appear in good positions. Compared to recent study of January 23 no interval changes identified. Impression: CHF. No interval change.
[2017-01-24 09:30] LABS: BUN/Creatinine Ratio 28.42; Calcium 9.2 mg/dL (8.4-10.2); Chloride 97.9 mmol/L (98-107); Potassium 3.9 mmol/L (3.6-5.0)
--- NOTE | 2017-01-24 09:36 | Progress Note ---
Assessment and Plan - Patient Problems (1) Aspiration pneumonia Current Visit: Yes Status: Acute Qualifiers: Aspiration pneumonia type: A Laterality: L Lung location: L Plan to address problem: Continue current antibiotics. (2) Acute exacerbation of CHF (congestive heart failure) Current Visit: Yes Status: Acute Qualifiers: Congestive heart failure type: combined Qualified Code(s): I50.43 - Acute on chronic combined systolic (congestive) and diastolic (congestive) heart failure Plan to address problem: Superimprosed vascular congestion with pneumonia. Short course of antibiotics is planned. Subjective Date of service: 01/24/17 Principal diagnosis: CHF exacerbation Interval history: Afebrile. Remains in ICU. Now extubated. Objective - Constitutional Vitals: Vital Signs Temp Pulse Resp BP Pulse Ox 97.5 F L 119 H 26 H 89/60 96 01/24/17 08:00 01/24/17 08:00 01/24/17 08:00 01/24/17 08:00 01/24/17 08:00 Temperature -Last 24 Hours Temperature 97.5 F Temperature 97.5 F Temperature 97.5 F Temperature 98.2 F Temperature 97.9 F Temperature 97.3 F General appearance: Present: no acute distress, obese (morbidly obese, BiPAP mask) - EENT Eyes: no scleral icterus, no conjunctival injection - Respiratory Respiratory effort: normal Respiratory: bilateral: CTA - Cardiovascular Rhythm: irregularly irregular Extremities: No edema - Gastrointestinal General gastrointestinal: Present: soft, non-tender - Genitourinary Female genitourinary: other ([place] with dark yellow urine) - Integumentary Integumentary: clear, no rash - Neurologic Neurologic: moves all extremities - Labs CBC & Chem 7: 01/25/17 07:54 01/25/17 07:54 Labs: Abnormal lab results 01/23/17 01/23/17 01/23/17 Range/Units 12:16 16:51 17:24 RDW (13.2-15.2) % Plt Count (140-440) K/mm3 Seg Neuts % (Manual) (40.0-70.0) % Lymphocytes % (Manual) (13.4-35.0) % Monocytes % (Manual) (0.0-7.3) % Eosinophils % (Manual) (0.0-4.3) % Lymphocytes # (Manual) (1.2-5.4) K/mm3 Monocytes # (Manual) (0.0-0.8) K/mm3 POC ABG pH 7.317 L (7.35-7.45) POC ABG pCO2 49.6 H (35-45) Sodium (137-145) mmol/L Potassium (3.6-5.0) mmol/L Chloride (98-107) mmol/L Carbon Dioxide (22-30) mmol/L BUN (7-17) mg/dL Creatinine (0.7-1.2) mg/dL Glucose (65-100) mg/dL POC Glucose 146 H 176 H (70-105) Calcium (8.4-10.2) mg/dL Alkaline Phosphatase (35-129) units/L Total Protein (6.3-8.2) g/dL Albumin (3.9-5) g/dL 01/23/17 01/24/17 01/24/17 Range/Units 23:57 05:12 07:50 RDW (13.2-15.2) % Plt Count (140-440) K/mm3 Seg Neuts % (Manual) (40.0-70.0) % Lymphocytes % (Manual) (13.4-35.0) % Monocytes % (Manual) (0.0-7.3) % Eosinophils % (Manual) (0.0-4.3) % Lymphocytes # (Manual) (1.2-5.4) K/mm3 Monocytes # (Manual) (0.0-0.8) K/mm3 POC ABG pH (7.35-7.45) POC ABG pCO2 (35-45) Sodium 136 L D (137-145) mmol/L Potassium (3.6-5.0) mmol/L Chloride 97.9 L (98-107) mmol/L Carbon Dioxide (22-30) mmol/L BUN 54 H (7-17) mg/dL Creatinine 1.9 H D (0.7-1.2) mg/dL Glucose 205 H (65-100) mg/dL POC Glucose 212 H 215 H (70-105) Calcium (8.4-10.2) mg/dL Alkaline Phosphatase (35-129) units/L Total Protein (6.3-8.2) g/dL Albumin (3.9-5) g/dL 01/24/17 01/24/17 Range/Units Unknown Unknown RDW 18.6 H (13.2-15.2) % Plt Count 138 L (140-440) K/mm3 Seg Neuts % (Manual) 71.0 H (40.0-70.0) % Lymphocytes % (Manual) 5.0 L (13.4-35.0) % Monocytes % (Manual) 18.0 H (0.0-7.3) % Eosinophils % (Manual) 5.0 H (0.0-4.3) % Lymphocytes # (Manual) 0.4 L (1.2-5.4) K/mm3 Monocytes # (Manual) 1.3 H (0.0-0.8) K/mm3 POC ABG pH (7.35-7.45) POC ABG pCO2 (35-45) Sodium (137-145) mmol/L Potassium 2.0 L* D (3.6-5.0) mmol/L Chloride 120.0 H (98-107) mmol/L Carbon Dioxide 15 L D (22-30) mmol/L BUN 34 H (7-17) mg/dL Creatinine (0.7-1.2) mg/dL Glucose 138 H (65-100) mg/dL POC Glucose (70-105) Calcium 4.8 L* D (8.4-10.2) mg/dL Alkaline Phosphatase 33 L (35-129) units/L Total Protein 3.0 L D (6.3-8.2) g/dL Albumin 1.4 L (3.9-5) g/dL - Imaging and cardiology Chest x-ray: report reviewed (CHF; no interval change)
[2017-01-24] MEDS: BABY ASPIRIN PO SCH (09:40)
[2017-01-24] MEDS: PEPCID PO SCH ×2 (09:40→22:04)
[2017-01-24] MEDS: LOPRESSOR PO SCH ×2 (09:49→22:03)
--- NOTE | 2017-01-24 09:57 | Progress Note ---
Assessment and Plan Severe hypokalemia- critical.See below Dilated CMP Acute systolic CHF CIERRA Acute respiratory failure, hypoxia Morbid obesity s/p PEA arrest; may have aspirated aspiration pneumonitis .Still on BPAP but no significant chest congestion UTI Rec 60 meq KCL infusion was going to be ordered NOW. However, when discussed with RN , labs on RN's EMR record simultaneously shows K 3.9. Lab called to clarify this. This reportedly verified as k+ of 3.9 @ 7:59am ( the 2 .0 K+ report on my [employer] EMR is listed as the most recent , but has no time stamp!! ). 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 Less SOB Objective Vital Signs - 12hr 01/23/17 01/23/17 01/24/17 22:00 23:01 00:00 Temperature 97.5 F L Pulse Rate 91 H 102 H 100 H Respiratory 12 11 L 21 Rate Respiratory 21 Rate [Head] Blood Pressure 101/53 88/39 103/66 O2 Sat by Pulse 99 95 96 Oximetry 01/24/17 01/24/17 01/24/17 01:00 02:00 02:38 Temperature Pulse Rate 111 H 103 H Respiratory 23 15 17 Rate Respiratory Rate [Head] Blood Pressure 126/92 115/62 O2 Sat by Pulse 100 100 Oximetry 01/24/17 01/24/17 01/24/17 03:00 03:27 03:44 Temperature 97.5 F L Pulse Rate 108 H Respiratory 15 17 Rate Respiratory Rate [Head] Blood Pressure 99/53 O2 Sat by Pulse 96 Oximetry 01/24/17 01/24/17 01/24/17 04:00 05:01 06:00 Temperature Pulse Rate 97 H 88 Respiratory 14 14 Rate Respiratory Rate [Head] Blood Pressure 97/61 94/59 O2 Sat by Pulse 97 100 Oximetry 01/24/17 01/24/17 01/24/17 06:01 07:01 08:00 Temperature 97.5 F L Pulse Rate 106 H 112 H 119 H Respiratory 17 16 26 H Rate Respiratory Rate [Head] Blood Pressure 92/58 100/82 89/60 O2 Sat by Pulse 99 98 96 Oximetry 01/24/17 01/24/17 09:45 09:49 Temperature Pulse Rate 120 H 116 H Respiratory 18 Rate Respiratory Rate [Head] Blood Pressure 116/86 116/86 O2 Sat by Pulse 99 Oximetry Constitutional: no acute distress, other (critically ill on BPAP) Eyes: non-icteric ENT: oropharynx moist Neck: supple, no JVD, other (obses) Effort: mildly labored Ascultation: Bilateral: rhonchi (bilateral), other (coarse, equal BS bilaterally ) Cardiovascular: irregular rhythm Gastrointestinal: normoactive bowel sounds, soft, other (obese) Integumentary: normal Extremities: no cyanosis, no edema, pink and warm, other (SCDs are in place) Neurologic: normal mental status, non-focal exam, pupils equal and round Psychiatric: mood appropriate, affect normal CBC and BMP: 01/24/17 Unknown 01/24/17 07:50 ABG, PT/INR, D-dimer: ABG POC ABG pH 7.317 (7.35-7.45) L 01/23/17 16:51 POC ABG pCO2 49.6 (35-45) H 01/23/17 16:51 POC ABG pO2 93 (80-105) 01/23/17 16:51 POC ABG HCO3 25.4 01/23/17 16:51 POC ABG Total CO2 27 01/23/17 16:51 POC ABG O2 Sat 96 01/23/17 16:51 Abnormal lab findings: Abnormal Labs 01/15/17 01/15/17 01/15/17 17:45 22:06 23:40 WBC RDW 18.6 H Plt Count 114 L Lymph % (Auto) [place] % (Auto) Eos % (Auto) Baso % (Auto) Lymph # [place] # Seg Neutrophils % Seg Neuts % (Manual) 82.0 H Lymphocytes % (Manual) 7.0 L Monocytes % (Manual) Eosinophils % (Manual) Seg Neutrophils # Lymphocytes # (Manual) 0.4 L Monocytes # (Manual) POC ABG pH POC ABG pCO2 POC ABG pO2 Sodium Potassium Chloride Carbon Dioxide BUN Creatinine Glucose POC Glucose 147 H 135 H Uric Acid Calcium Total Bilirubin Alkaline Phosphatase CK-MB (CK-2) CK-MB (CK-2) Rel Index Total Protein Albumin Urine WBC (Auto) 01/15/17 01/16/17 01/16/17 23:40 03:44 08:49 WBC RDW Plt Count Lymph % (Auto) [place] % (Auto) Eos % (Auto) Baso % (Auto) Lymph # [place] # Seg Neutrophils % Seg Neuts % (Manual) Lymphocytes % (Manual) Monocytes % (Manual) Eosinophils % (Manual) Seg Neutrophils # Lymphocytes # (Manual) Monocytes # (Manual) POC ABG pH POC ABG pCO2 POC ABG pO2 Sodium 132 L Potassium 5.1 H Chloride 95.5 L Carbon Dioxide 20 L BUN 36 H Creatinine Glucose 128 H POC Glucose 117 H 126 H Uric Acid Calcium Total Bilirubin Alkaline Phosphatase CK-MB (CK-2) CK-MB (CK-2) Rel Index Total Protein Albumin Urine WBC (Auto) 01/16/17 01/16/17 01/16/17 08:56 08:56 12:06 WBC RDW 19.2 H Plt Count Lymph % (Auto) 6.6 L [place] % (Auto) 12.0 H Eos % (Auto) 5.8 H Baso % (Auto) 1.9 H Lymph # 0.3 L [place] # Seg Neutrophils % 73.7 H Seg Neuts % (Manual) Lymphocytes % (Manual) Monocytes % (Manual) Eosinophils % (Manual) Seg Neutrophils # Lymphocytes # (Manual) Monocytes # (Manual) POC ABG pH POC ABG pCO2 POC ABG pO2 Sodium 132 L Potassium Chloride 95.1 L Carbon Dioxide 19 L BUN 36 H Creatinine 1.3 H Glucose 129 H POC Glucose 172 H Uric Acid Calcium Total Bilirubin 1.40 H Alkaline Phosphatase CK-MB (CK-2) CK-MB (CK-2) Rel Index Total Protein 6.2 L Albumin 3.1 L Urine WBC (Auto) 01/16/17 01/17/17 01/17/17 22:34 05:29 05:29 WBC RDW 19.2 H Plt Count Lymph % (Auto) 5.9 L [place] % (Auto) 10.8 H Eos % (Auto) Baso % (Auto) Lymph # 0.4 L [place] # Seg Neutrophils % 80.1 H Seg Neuts % (Manual) Lymphocytes % (Manual) Monocytes % (Manual) Eosinophils % (Manual) Seg Neutrophils # Lymphocytes # (Manual) Monocytes # (Manual) POC ABG pH POC ABG pCO2 POC ABG pO2 Sodium 131 L Potassium 5.3 H Chloride 94.8 L Carbon Dioxide 21 L BUN 39 H Creatinine 1.4 H Glucose 196 H POC Glucose 210 H Uric Acid Calcium Total Bilirubin Alkaline Phosphatase CK-MB (CK-2) CK-MB (CK-2) Rel Index Total Protein Albumin Urine WBC (Auto) 01/17/17 01/17/17 01/17/17 07:39 17:39 22:45 WBC RDW Plt Count Lymph % (Auto) [place] % (Auto) Eos % (Auto) Baso % (Auto) Lymph # [place] # Seg Neutrophils % Seg Neuts % (Manual) Lymphocytes % (Manual) Monocytes % (Manual) Eosinophils % (Manual) Seg Neutrophils # Lymphocytes # (Manual) Monocytes # (Manual) POC ABG pH POC ABG pCO2 POC ABG pO2 Sodium Potassium Chloride Carbon Dioxide BUN Creatinine Glucose POC Glucose 198 H 208 H 223 H Uric Acid Calcium Total Bilirubin Alkaline Phosphatase CK-MB (CK-2) CK-MB (CK-2) Rel Index Total Protein Albumin Urine WBC (Auto) 01/18/17 01/18/17 01/18/17 05:07 08:32 12:24 WBC RDW Plt Count Lymph % (Auto) [place] % (Auto) Eos % (Auto) Baso % (Auto) Lymph # [place] # Seg Neutrophils % Seg Neuts % (Manual) Lymphocytes % (Manual) Monocytes % (Manual) Eosinophils % (Manual) Seg Neutrophils # Lymphocytes # (Manual) Monocytes # (Manual) POC ABG pH POC ABG pCO2 POC ABG pO2 Sodium 129 L Potassium 5.2 H Chloride 92.0 L Carbon Dioxide BUN 41 H Creatinine 1.5 H Glucose 228 H POC Glucose 236 H 230 H Uric Acid Calcium Total Bilirubin Alkaline Phosphatase CK-MB (CK-2) CK-MB (CK-2) Rel Index Total Protein Albumin Urine WBC (Auto) 01/18/17 01/19/17 01/19/17 16:00 03:46 03:46 WBC RDW 18.9 H Plt Count Lymph % (Auto) [place] % (Auto) Eos % (Auto) Baso % (Auto) Lymph # [place] # Seg Neutrophils % Seg Neuts % (Manual) Lymphocytes % (Manual) Monocytes % (Manual) Eosinophils % (Manual) Seg Neutrophils # Lymphocytes # (Manual) Monocytes # (Manual) POC ABG pH POC ABG pCO2 POC ABG pO2 Sodium 128 L Potassium Chloride 92.3 L Carbon Dioxide 21 L BUN 40 H Creatinine 1.4 H Glucose 178 H POC Glucose 253 H Uric Acid Calcium Total Bilirubin Alkaline Phosphatase CK-MB (CK-2) CK-MB (CK-2) Rel Index Total Protein Albumin Urine WBC (Auto) 01/19/17 01/19/17 01/19/17 09:21 11:45 13:02 WBC RDW Plt Count Lymph % (Auto) [place] % (Auto) Eos % (Auto) Baso % (Auto) Lymph # [place] # Seg Neutrophils % Seg Neuts % (Manual) Lymphocytes % (Manual) Monocytes % (Manual) Eosinophils % (Manual) Seg Neutrophils # Lymphocytes # (Manual) Monocytes # (Manual) POC ABG pH POC ABG pCO2 POC ABG pO2 Sodium 131 L Potassium Chloride 92.8 L Carbon Dioxide BUN 39 H Creatinine 1.4 H Glucose 159 H POC Glucose 135 H 125 H Uric Acid Calcium Total Bilirubin Alkaline Phosphatase CK-MB (CK-2) 4.1 H CK-MB (CK-2) Rel Index 4.1 H Total Protein Albumin Urine WBC (Auto) 01/19/17 01/20/17 01/20/17 15:48 04:00 05:45 WBC 11.5 H RDW 18.9 H Plt Count 131 L Lymph % (Auto) [place] % (Auto) Eos % (Auto) Baso % (Auto) Lymph # [place] # Seg Neutrophils % Seg Neuts % (Manual) Lymphocytes % (Manual) Monocytes % (Manual) Eosinophils % (Manual) Seg Neutrophils # Lymphocytes # (Manual) Monocytes # (Manual) POC ABG pH POC ABG pCO2 POC ABG pO2 189 H Sodium 129 L Potassium Chloride 91.4 L Carbon Dioxide BUN 37 H Creatinine 1.3 H Glucose POC Glucose Uric Acid Calcium Total Bilirubin Alkaline Phosphatase CK-MB (CK-2) CK-MB (CK-2) Rel Index Total Protein Albumin Urine WBC (Auto) 01/20/17 01/20/17 01/21/17 06:09 09:34 00:26 WBC RDW Plt Count Lymph % (Auto) [place] % (Auto) Eos % (Auto) Baso % (Auto) Lymph # [place] # Seg Neutrophils % Seg Neuts % (Manual) Lymphocytes % (Manual) Monocytes % (Manual) Eosinophils % (Manual) Seg Neutrophils # Lymphocytes # (Manual) Monocytes # (Manual) POC ABG pH POC ABG pCO2 POC ABG pO2 67 L Sodium Potassium Chloride Carbon Dioxide BUN Creatinine Glucose POC Glucose 109 H Uric Acid Calcium Total Bilirubin Alkaline Phosphatase CK-MB (CK-2) CK-MB (CK-2) Rel Index Total Protein Albumin Urine WBC (Auto) 15.0 H 01/21/17 01/21/17 01/21/17 04:23 05:20 05:20 WBC 11.8 H RDW 18.9 H Plt Count 135 L Lymph % (Auto) [place] % (Auto) Eos % (Auto) Baso % (Auto) Lymph # [place] # Seg Neutrophils % Seg Neuts % (Manual) Lymphocytes % (Manual) Monocytes % (Manual) Eosinophils % (Manual) Seg Neutrophils # Lymphocytes # (Manual) Monocytes # (Manual) POC ABG pH 7.338 L POC ABG pCO2 48.6 H POC ABG pO2 67 L Sodium 134 L Potassium Chloride 95.5 L Carbon Dioxide BUN 38 H Creatinine 1.5 H Glucose 110 H POC Glucose Uric Acid Calcium Total Bilirubin Alkaline Phosphatase CK-MB (CK-2) CK-MB (CK-2) Rel Index Total Protein Albumin Urine WBC (Auto) 01/21/17 01/21/17 01/21/17 05:38 18:20 22:54 WBC RDW Plt Count Lymph % (Auto) [place] % (Auto) Eos % (Auto) Baso % (Auto) Lymph # [place] # Seg Neutrophils % Seg Neuts % (Manual) Lymphocytes % (Manual) Monocytes % (Manual) Eosinophils % (Manual) Seg Neutrophils # Lymphocytes # (Manual) Monocytes # (Manual) POC ABG pH POC ABG pCO2 POC ABG pO2 Sodium Potassium Chloride Carbon Dioxide BUN Creatinine Glucose POC Glucose 120 H 135 H 163 H Uric Acid Calcium Total Bilirubin Alkaline Phosphatase CK-MB (CK-2) CK-MB (CK-2) Rel Index Total Protein Albumin Urine WBC (Auto) 01/22/17 01/22/17 01/22/17 04:00 04:00 11:27 WBC 11.6 H RDW 18.7 H Plt Count 116 L Lymph % (Auto) 2.9 L [place] % (Auto) 11.1 H Eos % (Auto) Baso % (Auto) Lymph # 0.3 L [place] # 1.3 H Seg Neutrophils % 84.2 H Seg Neuts % (Manual) Lymphocytes % (Manual) Monocytes % (Manual) Eosinophils % (Manual) Seg Neutrophils # 9.8 H Lymphocytes # (Manual) Monocytes # (Manual) POC ABG pH POC ABG pCO2 POC ABG pO2 Sodium 135 L Potassium Chloride 94.6 L Carbon Dioxide BUN 43 H Creatinine 1.9 H Glucose 148 H POC Glucose 151 H Uric Acid Calcium Total Bilirubin 1.60 H Alkaline Phosphatase CK-MB (CK-2) CK-MB (CK-2) Rel Index Total Protein 5.6 L Albumin 2.8 L Urine WBC (Auto) 01/22/17 01/22/17 01/22/17 11:37 13:00 17:14 WBC RDW Plt Count Lymph % (Auto) [place] % (Auto) Eos % (Auto) Baso % (Auto) Lymph # [place] # Seg Neutrophils % Seg Neuts % (Manual) Lymphocytes % (Manual) Monocytes % (Manual) Eosinophils % (Manual) Seg Neutrophils # Lymphocytes # (Manual) Monocytes # (Manual) POC ABG pH POC ABG pCO2 45.2 H POC ABG pO2 Sodium Potassium Chloride Carbon Dioxide BUN Creatinine Glucose POC Glucose 178 H Uric Acid 12.0 H Calcium Total Bilirubin Alkaline Phosphatase CK-MB (CK-2) CK-MB (CK-2) Rel Index Total Protein Albumin Urine WBC (Auto) 01/22/17 01/23/17 01/23/17 23:33 04:10 04:10 WBC RDW 19.1 H Plt Count Lymph % (Auto) 3.3 L [place] % (Auto) 11.5 H Eos % (Auto) Baso % (Auto) Lymph # 0.3 L [place] # 1.2 H Seg Neutrophils % 83.9 H Seg Neuts % (Manual) Lymphocytes % (Manual) Monocytes % (Manual) Eosinophils % (Manual) Seg Neutrophils # 8.4 H Lymphocytes # (Manual) Monocytes # (Manual) POC ABG pH POC ABG pCO2 POC ABG pO2 Sodium 134 L Potassium Chloride 95.1 L Carbon Dioxide BUN 48 H Creatinine 2.0 H Glucose 197 H POC Glucose 202 H Uric Acid Calcium Total Bilirubin Alkaline Phosphatase CK-MB (CK-2) CK-MB (CK-2) Rel Index Total Protein Albumin Urine WBC (Auto) 01/23/17 01/23/17 01/23/17 05:19 12:16 16:51 WBC RDW Plt Count Lymph % (Auto) [place] % (Auto) Eos % (Auto) Baso % (Auto) Lymph # [place] # Seg Neutrophils % Seg Neuts % (Manual) Lymphocytes % (Manual) Monocytes % (Manual) Eosinophils % (Manual) Seg Neutrophils # Lymphocytes # (Manual) Monocytes # (Manual) POC ABG pH 7.317 L POC ABG pCO2 49.6 H POC ABG pO2 Sodium Potassium Chloride Carbon Dioxide BUN Creatinine Glucose POC Glucose 186 H 146 H Uric Acid Calcium Total Bilirubin Alkaline Phosphatase CK-MB (CK-2) CK-MB (CK-2) Rel Index Total Protein Albumin Urine WBC (Auto) 01/23/17 01/23/17 01/24/17 17:24 23:57 05:12 WBC RDW Plt Count Lymph % (Auto) [place] % (Auto) Eos % (Auto) Baso % (Auto) Lymph # [place] # Seg Neutrophils % Seg Neuts % (Manual) Lymphocytes % (Manual) Monocytes % (Manual) Eosinophils % (Manual) Seg Neutrophils # Lymphocytes # (Manual) Monocytes # (Manual) POC ABG pH POC ABG pCO2 POC ABG pO2 Sodium Potassium Chloride Carbon Dioxide BUN Creatinine Glucose POC Glucose 176 H 212 H 215 H Uric Acid Calcium Total Bilirubin Alkaline Phosphatase CK-MB (CK-2) CK-MB (CK-2) Rel Index Total Protein Albumin Urine WBC (Auto) 01/24/17 01/24/17 01/24/17 07:50 Unknown Unknown WBC RDW 18.6 H Plt Count 138 L Lymph % (Auto) [place] % (Auto) Eos % (Auto) Baso % (Auto) Lymph # [place] # Seg Neutrophils % Seg Neuts % (Manual) 71.0 H Lymphocytes % (Manual) 5.0 L Monocytes % (Manual) 18.0 H Eosinophils % (Manual) 5.0 H Seg Neutrophils # Lymphocytes # (Manual) 0.4 L Monocytes # (Manual) 1.3 H POC ABG pH POC ABG pCO2 POC ABG pO2 Sodium 136 L D Potassium 2.0 L* D Chloride 97.9 L 120.0 H Carbon Dioxide 15 L D BUN 54 H 34 H Creatinine 1.9 H D Glucose 205 H 138 H POC Glucose Uric Acid Calcium 4.8 L* D Total Bilirubin Alkaline Phosphatase 33 L CK-MB (CK-2) CK-MB (CK-2) Rel Index Total Protein 3.0 L D Albumin 1.4 L Urine WBC (Auto)
--- NOTE | 2017-01-24 10:44 | Progress Note ---
Subjective Principal diagnosis: CHF exacerbation Interval history: Patient was seen today for follow-up on multiple renal related issues Events of cost 24 hours noted Creatinine has currently been stable Vitals labs intake output and medications were reviewed Social history: Reviewed Family history: Reviewed Allergy: Reviewed Physical examination Vitals: Reviewed Gen.: No acute distress HEENT: Oral mucosa moist Neck: Supple no JVD Chest: Bilateral clear to auscultation no crackles rales or wheezes Heart: Regular rate and rhythm S1 and S2 heard Abdomen: Soft nontender no voluntary guarding rigidity rebound Extremity: Minimal edema dry skin Dermatology; dry skin no edema Assessment and plan Renal insufficiency creatinine is currently at around 1.3, currently 1.5, increased to 1.9 Is currently nonoliguric and creatinine is currently stable at around 1.9 Judicious administration of antibiotic and diaphoretic is recommended Avoid hypotension nephrotoxic medications Maintain MAP 65 or more Avoid nephrotoxic medication Risk of radiocontrast nephropathy moderate to high Severe cardiomyopathy, status post arrest, currently being treated for aspiration Prognosis appears to be poor in general We'll continue to follow and make recommendation from renal standpoint Objective - Vital Signs Vital signs: Vital Signs - 12hr 01/23/17 01/24/17 01/24/17 23:01 00:00 01:00 Temperature 97.5 F L Pulse Rate 102 H 100 H 111 H Respiratory 11 L 21 23 Rate Blood Pressure 88/39 103/66 126/92 O2 Sat by Pulse 95 96 100 Oximetry 01/24/17 01/24/17 01/24/17 02:00 02:38 03:00 Temperature Pulse Rate 103 H 108 H Respiratory 15 17 15 Rate Blood Pressure 115/62 99/53 O2 Sat by Pulse 100 96 Oximetry 01/24/17 01/24/17 01/24/17 03:27 03:44 04:00 Temperature 97.5 F L Pulse Rate 97 H Respiratory 17 14 Rate Blood Pressure 97/61 O2 Sat by Pulse Oximetry 01/24/17 01/24/17 01/24/17 05:01 06:00 06:01 Temperature Pulse Rate 88 106 H Respiratory 14 17 Rate Blood Pressure 94/59 92/58 O2 Sat by Pulse 97 100 99 Oximetry 01/24/17 01/24/17 01/24/17 07:01 08:00 09:45 Temperature 97.5 F L Pulse Rate 112 H 119 H 120 H Respiratory 16 26 H 18 Rate Blood Pressure 100/82 89/60 116/86 O2 Sat by Pulse 98 96 99 Oximetry 01/24/17 09:49 Temperature Pulse Rate 116 H Respiratory Rate Blood Pressure 116/86 O2 Sat by Pulse Oximetry - Lab 01/24/17 Unknown 01/24/17 07:50 Most recent lab results Calcium 9.2 mg/dL (8.4-10.2) D 01/24/17 07:50 Magnesium 2.00 mg/dL (1.7-2.3) 01/22/17 04:00
[2017-01-24] MEDS: VANCOMYCIN 2,000 MG in NACL 0.9% 500 ML 500 ML IV SCH (12:41)
--- NOTE | 2017-01-24 13:09 | Progress Note ---
Assessment and Plan Assessment and plan: Patient is 71 yo woman who lives alone but has partial functional quadriplegia/ wheelchair bound (mostly uses a walker to the bathroom) with a h/o chronic hypoxic respiratory failure on 2 L oxygen at home, right sided breast cancer, morbid obesity bmi 52.1, CHF, nonobstructive coronary artery disease and dyslipidemia who presented to [facility] emergency room on 01/15/2017 with complaints of shortness of breath and rapid heartbeat. EKG showed tachyarrhythmia, diagnosed as accelerated junctional per cardiology. Chest x-ray was read as cardiomegaly with pulmonary vascular congestion more pronounced compared to previous study, probable CHF. 01/15/2017 2D echocardiogram reported as global left ventricular systolic function is severely decreased, estimated EF is 10-15%, left atrium mildly dilated, right ventricle is mild to moderately dilated, right ventricular global systolic function is moderately reduced, right atrium is mild to moderate dilated, trace AR, no , mitral annular calcification, mild MR, no ms, moderate TR, right ventricular systolic function is calculated at 48mmhg, there is small pericardial effusion which does not appear to be hemodynamically significant, large left pleural effusion is present. -Acute on chronic systolic heart failure, worsening: Cardiology is following, request patient be transferred to the ICU for worsening CHF, treated with Diuresis, add ASA -Accelerated junction arrhythmia, uncontrolled: Cardiology is following, health promotion specialist evaluated -Acute renal failure, vasomotor nephropathy present on admission: Consulted nephrology -Hyperkalemia, mild, will restart her home insulin: monitor closely, still on Diovan per Dr. Cedeño, it appears benefits>risk at this point, await Nephrology evaluation; she had already received dose today. Will stop -Hyponatremia due to hyperglycemia: Control blood sugars -Uncontrolled type 2 diabetes mellitus: Restart home regimen -Sepsis pneumonia, pneumonia may have been poa, unable to say for sure with the chf/pulmonary vascular congestion on admission: continue to monitor and treat with abx -Chronic hypoxic respiratory failure due to CHF: Continue oxygen -DVT prophylaxis: scd only, heparin stopped due to dropping plt counts -Acute metabolic encephalopathy, poa -BMI 52.1, morbid obesity, poa: material requirements worker evaluation. -Acute on chronic hypoxic respiratory failure, poa: intubated, trying to wean off ventilator full code 01/18/17: Patient was transferred to the ICU in the evening and started on Milrinone drip after EP re-evaluation 01/19/17: I saw patient the morning prior to the cardiac arrest, she was doing better without any new complaints and she felt like the swelling had gotten better, then ZECHARIAH AGUILAR called at 1135. Hypnotherapist, Dr. Rios was close and ran the code. It appears patient was being washed up and she had bradycardia down to PEA, ACLS and chest compressions were started, patient pulse was restored with 2 doses of epinephrine. When Dr. Rios was intubating, he noticed gastric particles in the back of her throat; therefore, patient most likely aspirated, became hypoxic and went into PEA. During the CODE BLUE, she had more pronounced wide complex tachycardia; therefore, Primacor discontinued. Cardiology Dr. Campos came to the bedside and gave her Amiodarone 150 mg IV bolus 1 f(drip not started). D/w daughter Olivia, listed next of kin at , ==>continue full code 01/20/17: She spiked a fever, trach sputum cultures has Preliminary growth of gram-positive cocci in pairs and clusters, started IV vancomycin and IV Levaquin , she is allergic to penicillin, consulted infectious disease physician, ordered blood cultures 2 sets and urinalysis, reviewed chest x-ray. She most likely has aspiration pneumonitis, may need to be on clindamycin also for anaerobic coverage The high probability of a clinically significant, sudden or life threatening deterioration of the [neurologic,cardiac] system(s) required my full and direct attention, intervention and personal management. The aggregate critical care time was [ 33 ] minutes. This time is in addition to time spent performing reported procedures but includes the following: [x] Data Review and interpretation [x] Patient assessment and monitoring of vital signs [x] Documentation [x] Medication orders and management 01/21/17: Issue today is borderline low blood pressure but Alyson is above 60, cardiology notified, complex medical decision because her EF is so low and IV fluids may cause pulmonary edema. Diprivan was changed to fentanyl drip. The fever is gone. Pt is on 3 IV antibiotics. Appreciate infectious disease note. 01/22/17: looks much better today. following commands, weaning attempts. IV Abx narrowed down. Urine ctx pending. plt is dropping, sq heparin stopped, repeat. 01/23/17: Extubated yesterday, using BiPAP intermittently she is on high flow now , 20 L. Heart rate still uncontrolled at 120s blood pressures hold steady=->RN will notify cardiology. Question need amiodarone. Keep in ICU due to respiratory status. Continue IV antibiotics. Platelet counts recovered, continue to hold heparin repeat CBC a.m. restart tomorrow for DVT prophylaxis is if platelet Counts stable. Urine culture still pending.The high probability of a clinically significant, sudden or life threatening deterioration of the [ neurologic,cardiac] system(s) required my full and direct attention, intervention and personal management. The aggregate critical care time was [32 ] minutes. This time is in addition to time spent performing reported procedures but includes the following: [x] Data Review and interpretation [x] Patient assessment and monitoring of vital signs [x] Documentation [x] Medication orders and management 01/24/17: Bipap re-applied, keep in icu. Condition is guarded. History Interval history: Patient seen and examined. Follow up on cardiac arrest resolved; extubated . Overnight uneventful. Nursing notes reviewed. Bipap re-applied Hospitalist Physical - Physical exam Narrative exam: GEN: ill appearing bmi 52.1 no acute distress, bipap re-applied NECK: SUPPLE, NO THYROMEGALY, + JVD, NO LAD CVS: irregular irregular, NORMAL S1S2 LUNGS/CHEST: Coarse breath sounds bilaterally NORMAL CHEST EXPANSION B, adequate AIR ENTRY B ABD: SOFT, distended GBS, NO REBOUND OR GUARDING EXT/SKIN: SIGNIFICANT EDEMA justino MSK: Spontaneous movement X 4 EXTREMITIES NEURO: CN 2-12 GROSSLY INTACT, follow commands without gross deficits PSY: anxious - Constitutional Vitals: Temp Pulse Resp BP Pulse Ox 97.5 F L 109 H 13 97/72 100 01/24/17 08:00 01/24/17 12:00 01/24/17 11:50 01/24/17 11:50 01/24/17 12:00 General appearance: Present: obese (morbidly obese) Results - Labs CBC & Chem 7: 01/24/17 Unknown 01/24/17 07:50 Labs: Laboratory Last Values WBC 7.2 K/mm3 (4.5-11.0) 01/24/17 Unknown RBC 4.36 M/mm3 (3.65-5.03) 01/24/17 Unknown Hgb 12.4 gm/dl (10.1-14.3) 01/24/17 Unknown Hct 37.9 % (30.3-42.9) 01/24/17 Unknown MCV 87 fl (79-97) 01/24/17 Unknown MCH 28 pg (28-32) 01/24/17 Unknown MCHC 33 % (30-34) 01/24/17 Unknown RDW 18.6 % (13.2-15.2) H 01/24/17 Unknown Plt Count 138 K/mm3 (140-440) L 01/24/17 Unknown Lymph % (Auto) 3.3 % (13.4-35.0) L 01/23/17 04:10 [place] % (Auto) Instrument Lens Grinder 01/24/17 Unknown Eos % (Auto) 0.8 % (0.0-4.3) 01/23/17 04:10 Baso % (Auto) 0.5 % (0.0-1.8) 01/23/17 04:10 Lymph # 0.3 K/mm3 (1.2-5.4) L 01/23/17 04:10 [place] # 1.2 K/mm3 (0.0-0.8) H 01/23/17 04:10 Eos # 0.1 K/mm3 (0.0-0.4) 01/23/17 04:10 Baso # 0.0 K/mm3 (0.0-0.1) 01/23/17 04:10 Add Manual Diff Complete 01/24/17 Unknown Total Counted 100 01/24/17 Unknown Seg Neutrophils % 83.9 % (40.0-70.0) H 01/23/17 04:10 Seg Neuts % (Manual) 71.0 % (40.0-70.0) H 01/24/17 Unknown Band Neutrophils % 0 % 01/24/17 Unknown Lymphocytes % (Manual) 5.0 % (13.4-35.0) L 01/24/17 Unknown Reactive Lymphs % (Man) 0 % 01/24/17 Unknown Monocytes % (Manual) 18.0 % (0.0-7.3) H 01/24/17 Unknown Eosinophils % (Manual) 5.0 % (0.0-4.3) H 01/24/17 Unknown Basophils % (Manual) 1.0 % (0.0-1.8) 01/24/17 Unknown Metamyelocytes % 0 % 01/24/17 Unknown Myelocytes % 0 % 01/24/17 Unknown Promyelocytes % 0 % 01/24/17 Unknown Blast Cells % 0 % 01/24/17 Unknown Nucleated RBC % Not Reportable 01/24/17 Unknown Seg Neutrophils # 8.4 K/mm3 (1.8-7.7) H 01/23/17 04:10 Seg Neutrophils # Man 5.1 K/mm3 (1.8-7.7) 01/24/17 Unknown Band Neutrophils # 0.0 K/mm3 01/24/17 Unknown Lymphocytes # (Manual) 0.4 K/mm3 (1.2-5.4) L 01/24/17 Unknown Abs React Lymphs (Man) 0.0 K/mm3 01/24/17 Unknown Monocytes # (Manual) 1.3 K/mm3 (0.0-0.8) H 01/24/17 Unknown Eosinophils # (Manual) 0.4 K/mm3 (0.0-0.4) 01/24/17 Unknown Basophils # (Manual) 0.1 K/mm3 (0.0-0.1) 01/24/17 Unknown Metamyelocytes # 0.0 K/mm3 01/24/17 Unknown Myelocytes # 0.0 K/mm3 01/24/17 Unknown Promyelocytes # 0.0 K/mm3 01/24/17 Unknown Blast Cells # 0.0 K/mm3 01/24/17 Unknown WBC Morphology Not Reportable 01/24/17 Unknown Hypersegmented Neuts Not Reportable 01/24/17 Unknown Hyposegmented Neuts Not Reportable 01/24/17 Unknown Hypogranular Neuts Not Reportable 01/24/17 Unknown Smudge Cells Not Reportable 01/24/17 Unknown Toxic Granulation Not Reportable 01/24/17 Unknown Toxic Vacuolation Not Reportable 01/24/17 Unknown Dohle Bodies Not Reportable 01/24/17 Unknown Pelger-Huet Anomaly Not Reportable 01/24/17 Unknown Yusuf Rods Not Reportable 01/24/17 Unknown Platelet Estimate Consistent w auto 01/24/17 Unknown Clumped Platelets Not Reportable 01/24/17 Unknown Plt Clumps, EDTA Not Reportable 01/24/17 Unknown Large Platelets Not Reportable 01/24/17 Unknown Giant Platelets Not Reportable 01/24/17 Unknown Platelet Satelliting Not Reportable 01/24/17 Unknown Plt Morphology Comment Not Reportable 01/24/17 Unknown RBC Morphology Normal 01/24/17 Unknown Dimorphic RBCs Not Reportable 01/24/17 Unknown Polychromasia Not Reportable 01/24/17 Unknown Hypochromasia Not Reportable 01/24/17 Unknown Poikilocytosis Not Reportable 01/24/17 Unknown Anisocytosis Not Reportable 01/24/17 Unknown Microcytosis Not Reportable 01/24/17 Unknown Macrocytosis Not Reportable 01/24/17 Unknown Spherocytes Not Reportable 01/24/17 Unknown Pappenheimer Bodies Not Reportable 01/24/17 Unknown Sickle Cells Not Reportable 01/24/17 Unknown Target Cells Not Reportable 01/24/17 Unknown Tear Drop Cells Not Reportable 01/24/17 Unknown Ovalocytes Not Reportable 01/24/17 Unknown Helmet Cells Not Reportable 01/24/17 Unknown [place] Bodies Not Reportable 01/24/17 Unknown Finley Rings Not Reportable 01/24/17 Unknown [place] Cells Not Reportable 01/24/17 Unknown Bite Cells Not Reportable 01/24/17 Unknown Crenated Cell Not Reportable 01/24/17 Unknown Elliptocytes Not Reportable 01/24/17 Unknown Acanthocytes (Spur) Not Reportable 01/24/17 Unknown Rouleaux Not Reportable 01/24/17 Unknown Hemoglobin C Crystals Not Reportable 01/24/17 Unknown Schistocytes Not Reportable 01/24/17 Unknown Malaria parasites Not Reportable 01/24/17 Unknown Trevor Bodies Not Reportable 01/24/17 Unknown Hem Pathologist Commnt No 01/24/17 Unknown POC ABG pH 7.317 (7.35-7.45) L 01/23/17 16:51 POC ABG pCO2 49.6 (35-45) H 01/23/17 16:51 POC ABG pO2 93 (80-105) 01/23/17 16:51 POC ABG HCO3 25.4 01/23/17 16:51 POC ABG Total CO2 27 01/23/17 16:51 POC ABG O2 Sat 96 01/23/17 16:51 POC ABG Base Excess -1 01/23/17 16:51 FiO2 35 % 01/23/17 16:51 Sodium 136 mmol/L (137-145) L D 01/24/17 07:50 Potassium 3.9 mmol/L (3.6-5.0) D 01/24/17 07:50 Chloride 97.9 mmol/L (98-107) L 01/24/17 07:50 Carbon Dioxide 29 mmol/L (22-30) D 01/24/17 07:50 Anion Gap 13 mmol/L 01/24/17 07:50 BUN 54 mg/dL (7-17) H 01/24/17 07:50 Creatinine 1.9 mg/dL (0.7-1.2) H D 01/24/17 07:50 Estimated GFR 31 ml/min 01/24/17 07:50 BUN/Creatinine Ratio 28.42 % 01/24/17 07:50 Glucose 205 mg/dL (65-100) H 01/24/17 07:50 POC Glucose 215 (70-105) H 01/24/17 05:12 Osmolality 298 Mosm/kg 01/22/17 13:00 Uric Acid 12.0 mg/dL (3.5-7.6) H 01/22/17 13:00 Calcium 9.2 mg/dL (8.4-10.2) D 01/24/17 07:50 Magnesium 2.00 mg/dL (1.7-2.3) 01/22/17 04:00 Total Bilirubin 1.60 mg/dL (0.1-1.2) H 01/22/17 04:00 AST 25 units/L (5-40) 01/22/17 04:00 ALT 12 units/L (7-56) 01/22/17 04:00 Alkaline Phosphatase 63 units/L (35-129) 01/22/17 04:00 Total Creatine Kinase 98 units/L (30-135) 01/19/17 13:02 CK-MB (CK-2) 4.1 ng/mL (0.0-4.0) H 01/19/17 13:02 CK-MB (CK-2) Rel Index 4.1 (0-4) H 01/19/17 13:02 Troponin T 0.022 ng/mL (0.00-0.029) 01/19/17 13:02 NT-Pro-B Natriuret Pep 8400 pg/mL (0-900) H 01/15/17 09:03 Total Protein 5.6 g/dL (6.3-8.2) L 01/22/17 04:00 Albumin 2.8 g/dL (3.9-5) L 01/22/17 04:00 Albumin/Globulin Ratio 1.0 % 01/22/17 04:00 Urine Color Yellow (Yellow) 01/20/17 09:34 Urine Turbidity Clear (Clear) 01/20/17 09:34 Urine pH 5.0 (5.0-7.0) 01/20/17 09:34 Ur Specific Straughn 1.006 (1.003-1.030) 01/20/17 09:34 Urine Protein <15 mg/dl mg/dL (Negative) 01/20/17 09:34 Urine Glucose (UA) Neg mg/dL (Negative) 01/20/17 09:34 Urine Ketones Neg mg/dL (Negative) 01/20/17 09:34 Urine Blood Mod (Negative) 01/20/17 09:34 Urine Nitrite Neg (Negative) 01/20/17 09:34 Urine Bilirubin Neg (Negative) 01/20/17 09:34 Urine Urobilinogen < 2.0 mg/dL (<2.0) 01/20/17 09:34 Ur Leukocyte Esterase Mod (Negative) 01/20/17 09:34 Urine WBC (Auto) 15.0 /HPF (0.0-6.0) H 01/20/17 09:34 Urine RBC (Auto) 12.0 /HPF (0.0-6.0) 01/20/17 09:34 U Epithel Cells (Auto) 2.0 /HPF (0-13.0) 01/20/17 09:34 Urine Bacteria (Auto) 1+ /HPF (Negative) 01/20/17 09:34 Amorphous Crystals Few 01/20/17 09:34 Urine Yeast (Budding) 1+ /HPF 01/20/17 09:34 Vancomycin Trough 16.5 ug/mL (5.0-20.0) 01/22/17 13:00
[2017-01-24] MEDS: HEPARIN SUB-Q SCH ×2 (13:32→22:02)
--- NOTE | 2017-01-24 14:36 | Progress Note ---
Assessment and Plan S/p PEA cardiorespiratory arrest 01/19 Extubated Ade negative for AMI s/p code; ECG with no ischemic changes Dobutamine gtt d/c'd s/p IV amio 150mg bolus x 1. Acute on chronic biventricular systolic heart failure Cont strict I/O diuretics held in setting of CIERRA continue carvedilol 25 bid. ACEI/ARB held in setting of CIERRA. Aspiration PNA ID following. CIERRA / Hyperkalemia nephrology following Hyponatremia monitor Accelerated junction arrhythmia vs sinus with long UT interval Per EP, QRS vector same as office EKG unlikely VT Also with intermittent SR with prolonged UT v. IVCD v. idioventricular rhythm noted on tele. continue carvedilol Cardiomyopathy EF 10 - 15% NSVT Diabetes Hypertension Hyperlipidemia History of Breast CA Obesity Cont present cardiac regimen. Overall poor prognosis. Assessment and plan reviewed with pt's daughter, Olivia, via telephone. The patient has been seen in conjunction with Dr. Del Castillo who agrees with the assessment and plan of care. Subjective Date of service: 01/24/17 Principal diagnosis: CHF exacerbation Interval history: Pt resting in bed, on O2 via NC. Remains in apparent junctional tachycardia with IVCD on tele. No family at bedside. Objective Last Vital Signs Temp 97.9 F 01/24/17 12:00 Pulse 109 H 01/24/17 12:00 Resp 13 01/24/17 11:50 BP 97/72 01/24/17 11:50 Pulse Ox 100 01/24/17 12:00 - Physical Examination General: Appears Well HEENT: Positive: PERRL, EOMI Neck: Positive: neck supple, trachea midline. Negative: JVD/HJR Cardiac: Positive: S1/S2, Tachycardia Lungs: Positive: Decreased Breath Sounds Neuro: Positive: Grossly Intact Abdomen: Positive: Unremarkable, Soft, Active Bowel Sounds Skin: Negative: Rash, Suspicious Lesions Extremities: Present: edema (trace BLE ), warm, Other (chronic venous stasis changes) - Labs and Meds Cardiac Enzymes 01/24/17 Range/Units 05:44 AST 11 (5-40) units/L CBC 01/24/17 Range/Units Unknown WBC 7.2 (4.5-11.0) K/mm3 RBC 4.36 (3.65-5.03) M/mm3 Hgb 12.4 (10.1-14.3) gm/dl Hct 37.9 (30.3-42.9) % Plt Count 138 L (140-440) K/mm3 Comprehensive Metabolic Panel 01/24/17 01/24/17 Range/Units 05:44 07:50 Sodium 145 D 136 L D (137-145) mmol/L Potassium 2.0 L* D 3.9 D (3.6-5.0) mmol/L Chloride 120.0 H 97.9 L (98-107) mmol/L Carbon Dioxide 15 L D 29 D (22-30) mmol/L BUN 34 H 54 H (7-17) mg/dL Creatinine 0.8 D 1.9 H D (0.7-1.2) mg/dL Glucose 138 H 205 H (65-100) mg/dL Calcium 4.8 L* D 9.2 D (8.4-10.2) mg/dL AST 11 (5-40) units/L ALT 7 (7-56) units/L Alkaline Phosphatase 33 L (35-129) units/L Total Protein 3.0 L D (6.3-8.2) g/dL Albumin 1.4 L (3.9-5) g/dL - Imaging and Cardiology EKG: report reviewed (Tachycardia of 128/min Junctional rhythm) Stress echo: report reviewed (Cardiac PET 11/11: very small mild anterior, anteroapical mild reversible defect. EF stress 58%) Echo: report reviewed (ECHO 11/16: TDS, EF cannot be determined due to poor image quality, ) Cardiac cath: report reviewed ([facility] 06/07: LM: patent, LCX: diffuse disease, LAD: diffuse disease, RCA: diffuse disease, mid 40%)
[2017-01-24] MEDS: ZOCOR PO SCH (22:03)
[2017-01-25] MEDS: NOVOLOG SUB-Q SCH ×5 (00:08→23:46)
[2017-01-25] MEDS: HEPARIN SUB-Q SCH ×3 (06:26→21:10)
--- NOTE | 2017-01-25 07:39 | XRay Report ---
AP CHEST: HISTORY: Follow respiratory failure Minimal improvement in CHF is suspected since yesterday's exam at 0216 hours. No new acute process. The feeding tube and left arm PICC remain in the same position.
--- NOTE | 2017-01-25 08:46 | Progress Note ---
Assessment and Plan Dilated CMP Acute systolic CHF CIERRA Acute respiratory failure, hypoxia. On HFO, bedside V/S adequate,sat 98% Morbid obesity s/p PEA arrest Aspiration pneumonitis .CXR improving, decreased CHF chages per report UTI Rec Dobutamide per cards Monitor I/O. Decrease fluids? HFO as tolerated and wean or NC if improving Discussed with family in detail.All questions answered.Prognosis grave CCT 35 min Subjective Date of service: 01/25/17 Principal diagnosis: CHF exacerbation Interval history: Feels better.No events reported overnight. Now on HFO, well tolerated. Objective Vital Signs - 12hr 01/24/17 01/24/17 01/24/17 20:49 21:00 22:00 Temperature Pulse Rate 106 H 105 H Respiratory 16 21 Rate Blood Pressure 97/58 108/79 O2 Sat by Pulse 98 99 99 Oximetry 01/24/17 01/24/17 01/24/17 22:03 23:00 23:49 Temperature 97.5 F L Pulse Rate 108 H 101 H Respiratory 12 Rate Blood Pressure 93/58 109/66 O2 Sat by Pulse Oximetry 01/24/17 01/25/17 01/25/17 23:59 00:00 01:00 Temperature Pulse Rate 101 H 105 H 101 H Respiratory 14 12 16 Rate Blood Pressure 106/74 98/77 103/55 O2 Sat by Pulse 97 100 97 Oximetry 01/25/17 01/25/17 01/25/17 02:01 03:00 04:00 Temperature 97.4 F L Pulse Rate 106 H 106 H 100 H Respiratory 14 17 14 Rate Blood Pressure 107/75 119/99 127/82 O2 Sat by Pulse 92 98 100 Oximetry 01/25/17 01/25/17 01/25/17 04:25 05:00 06:00 Temperature Pulse Rate 103 H 103 H 100 H Respiratory 17 14 22 Rate Blood Pressure 127/82 98/56 98/62 O2 Sat by Pulse 98 95 98 Oximetry 01/25/17 08:09 Temperature Pulse Rate Respiratory Rate Blood Pressure O2 Sat by Pulse 100 Oximetry Constitutional: no acute distress, alert Eyes: non-icteric ENT: oropharynx moist Neck: supple, no JVD Effort: normal Ascultation: Bilateral: clear, diminished breath sounds (bases) Cardiovascular: irregular rhythm Gastrointestinal: normoactive bowel sounds, soft, other (obese) Integumentary: normal Extremities: no cyanosis, no edema, pink and warm, other (SCDs are in place) Neurologic: normal mental status, non-focal exam, pupils equal and round Psychiatric: mood appropriate, affect normal CBC and BMP: 01/25/17 07:54 01/25/17 07:54 ABG, PT/INR, D-dimer: ABG POC ABG pH 7.317 (7.35-7.45) L 01/23/17 16:51 POC ABG pCO2 49.6 (35-45) H 01/23/17 16:51 POC ABG pO2 93 (80-105) 01/23/17 16:51 POC ABG HCO3 25.4 01/23/17 16:51 POC ABG Total CO2 27 01/23/17 16:51 POC ABG O2 Sat 96 01/23/17 16:51 Abnormal lab findings: Abnormal Labs 01/15/17 01/15/17 01/15/17 17:45 22:06 23:40 WBC RDW 18.6 H Plt Count 114 L Lymph % (Auto) Ellis % (Auto) Eos % (Auto) Baso % (Auto) Lymph # Ellis # Seg Neutrophils % Seg Neuts % (Manual) 82.0 H Lymphocytes % (Manual) 7.0 L Monocytes % (Manual) Eosinophils % (Manual) Seg Neutrophils # Lymphocytes # (Manual) 0.4 L Monocytes # (Manual) POC ABG pH POC ABG pCO2 POC ABG pO2 Sodium Potassium Chloride Carbon Dioxide BUN Creatinine Glucose POC Glucose 147 H 135 H Uric Acid Calcium Total Bilirubin Alkaline Phosphatase CK-MB (CK-2) CK-MB (CK-2) Rel Index Total Protein Albumin Urine WBC (Auto) 01/15/17 01/16/17 01/16/17 23:40 03:44 08:49 WBC RDW Plt Count Lymph % (Auto) Ellis % (Auto) Eos % (Auto) Baso % (Auto) Lymph # Ellis # Seg Neutrophils % Seg Neuts % (Manual) Lymphocytes % (Manual) Monocytes % (Manual) Eosinophils % (Manual) Seg Neutrophils # Lymphocytes # (Manual) Monocytes # (Manual) POC ABG pH POC ABG pCO2 POC ABG pO2 Sodium 132 L Potassium 5.1 H Chloride 95.5 L Carbon Dioxide 20 L BUN 36 H Creatinine Glucose 128 H POC Glucose 117 H 126 H Uric Acid Calcium Total Bilirubin Alkaline Phosphatase CK-MB (CK-2) CK-MB (CK-2) Rel Index Total Protein Albumin Urine WBC (Auto) 01/16/17 01/16/17 01/16/17 08:56 08:56 12:06 WBC RDW 19.2 H Plt Count Lymph % (Auto) 6.6 L Ellis % (Auto) 12.0 H Eos % (Auto) 5.8 H Baso % (Auto) 1.9 H Lymph # 0.3 L Ellis # Seg Neutrophils % 73.7 H Seg Neuts % (Manual) Lymphocytes % (Manual) Monocytes % (Manual) Eosinophils % (Manual) Seg Neutrophils # Lymphocytes # (Manual) Monocytes # (Manual) POC ABG pH POC ABG pCO2 POC ABG pO2 Sodium 132 L Potassium Chloride 95.1 L Carbon Dioxide 19 L BUN 36 H Creatinine 1.3 H Glucose 129 H POC Glucose 172 H Uric Acid Calcium Total Bilirubin 1.40 H Alkaline Phosphatase CK-MB (CK-2) CK-MB (CK-2) Rel Index Total Protein 6.2 L Albumin 3.1 L Urine WBC (Auto) 01/16/17 01/17/17 01/17/17 22:34 05:29 05:29 WBC RDW 19.2 H Plt Count Lymph % (Auto) 5.9 L Ellis % (Auto) 10.8 H Eos % (Auto) Baso % (Auto) Lymph # 0.4 L Ellis # Seg Neutrophils % 80.1 H Seg Neuts % (Manual) Lymphocytes % (Manual) Monocytes % (Manual) Eosinophils % (Manual) Seg Neutrophils # Lymphocytes # (Manual) Monocytes # (Manual) POC ABG pH POC ABG pCO2 POC ABG pO2 Sodium 131 L Potassium 5.3 H Chloride 94.8 L Carbon Dioxide 21 L BUN 39 H Creatinine 1.4 H Glucose 196 H POC Glucose 210 H Uric Acid Calcium Total Bilirubin Alkaline Phosphatase CK-MB (CK-2) CK-MB (CK-2) Rel Index Total Protein Albumin Urine WBC (Auto) 01/17/17 01/17/17 01/17/17 07:39 17:39 22:45 WBC RDW Plt Count Lymph % (Auto) Ellis % (Auto) Eos % (Auto) Baso % (Auto) Lymph # Ellis # Seg Neutrophils % Seg Neuts % (Manual) Lymphocytes % (Manual) Monocytes % (Manual) Eosinophils % (Manual) Seg Neutrophils # Lymphocytes # (Manual) Monocytes # (Manual) POC ABG pH POC ABG pCO2 POC ABG pO2 Sodium Potassium Chloride Carbon Dioxide BUN Creatinine Glucose POC Glucose 198 H 208 H 223 H Uric Acid Calcium Total Bilirubin Alkaline Phosphatase CK-MB (CK-2) CK-MB (CK-2) Rel Index Total Protein Albumin Urine WBC (Auto) 01/18/17 01/18/17 01/18/17 05:07 08:32 12:24 WBC RDW Plt Count Lymph % (Auto) Ellis % (Auto) Eos % (Auto) Baso % (Auto) Lymph # Ellis # Seg Neutrophils % Seg Neuts % (Manual) Lymphocytes % (Manual) Monocytes % (Manual) Eosinophils % (Manual) Seg Neutrophils # Lymphocytes # (Manual) Monocytes # (Manual) POC ABG pH POC ABG pCO2 POC ABG pO2 Sodium 129 L Potassium 5.2 H Chloride 92.0 L Carbon Dioxide BUN 41 H Creatinine 1.5 H Glucose 228 H POC Glucose 236 H 230 H Uric Acid Calcium Total Bilirubin Alkaline Phosphatase CK-MB (CK-2) CK-MB (CK-2) Rel Index Total Protein Albumin Urine WBC (Auto) 01/18/17 01/19/17 01/19/17 16:00 03:46 03:46 WBC RDW 18.9 H Plt Count Lymph % (Auto) Ellis % (Auto) Eos % (Auto) Baso % (Auto) Lymph # Ellis # Seg Neutrophils % Seg Neuts % (Manual) Lymphocytes % (Manual) Monocytes % (Manual) Eosinophils % (Manual) Seg Neutrophils # Lymphocytes # (Manual) Monocytes # (Manual) POC ABG pH POC ABG pCO2 POC ABG pO2 Sodium 128 L Potassium Chloride 92.3 L Carbon Dioxide 21 L BUN 40 H Creatinine 1.4 H Glucose 178 H POC Glucose 253 H Uric Acid Calcium Total Bilirubin Alkaline Phosphatase CK-MB (CK-2) CK-MB (CK-2) Rel Index Total Protein Albumin Urine WBC (Auto) 01/19/17 01/19/17 01/19/17 09:21 11:45 13:02 WBC RDW Plt Count Lymph % (Auto) Ellis % (Auto) Eos % (Auto) Baso % (Auto) Lymph # Ellis # Seg Neutrophils % Seg Neuts % (Manual) Lymphocytes % (Manual) Monocytes % (Manual) Eosinophils % (Manual) Seg Neutrophils # Lymphocytes # (Manual) Monocytes # (Manual) POC ABG pH POC ABG pCO2 POC ABG pO2 Sodium 131 L Potassium Chloride 92.8 L Carbon Dioxide BUN 39 H Creatinine 1.4 H Glucose 159 H POC Glucose 135 H 125 H Uric Acid Calcium Total Bilirubin Alkaline Phosphatase CK-MB (CK-2) 4.1 H CK-MB (CK-2) Rel Index 4.1 H Total Protein Albumin Urine WBC (Auto) 01/19/17 01/20/17 01/20/17 15:48 04:00 05:45 WBC 11.5 H RDW 18.9 H Plt Count 131 L Lymph % (Auto) Ellis % (Auto) Eos % (Auto) Baso % (Auto) Lymph # Ellis # Seg Neutrophils % Seg Neuts % (Manual) Lymphocytes % (Manual) Monocytes % (Manual) Eosinophils % (Manual) Seg Neutrophils # Lymphocytes # (Manual) Monocytes # (Manual) POC ABG pH POC ABG pCO2 POC ABG pO2 189 H Sodium 129 L Potassium Chloride 91.4 L Carbon Dioxide BUN 37 H Creatinine 1.3 H Glucose POC Glucose Uric Acid Calcium Total Bilirubin Alkaline Phosphatase CK-MB (CK-2) CK-MB (CK-2) Rel Index Total Protein Albumin Urine WBC (Auto) 01/20/17 01/20/17 01/21/17 06:09 09:34 00:26 WBC RDW Plt Count Lymph % (Auto) Ellis % (Auto) Eos % (Auto) Baso % (Auto) Lymph # Ellis # Seg Neutrophils % Seg Neuts % (Manual) Lymphocytes % (Manual) Monocytes % (Manual) Eosinophils % (Manual) Seg Neutrophils # Lymphocytes # (Manual) Monocytes # (Manual) POC ABG pH POC ABG pCO2 POC ABG pO2 67 L Sodium Potassium Chloride Carbon Dioxide BUN Creatinine Glucose POC Glucose 109 H Uric Acid Calcium Total Bilirubin Alkaline Phosphatase CK-MB (CK-2) CK-MB (CK-2) Rel Index Total Protein Albumin Urine WBC (Auto) 15.0 H 01/21/17 01/21/17 01/21/17 04:23 05:20 05:20 WBC 11.8 H RDW 18.9 H Plt Count 135 L Lymph % (Auto) Ellis % (Auto) Eos % (Auto) Baso % (Auto) Lymph # Ellis # Seg Neutrophils % Seg Neuts % (Manual) Lymphocytes % (Manual) Monocytes % (Manual) Eosinophils % (Manual) Seg Neutrophils # Lymphocytes # (Manual) Monocytes # (Manual) POC ABG pH 7.338 L POC ABG pCO2 48.6 H POC ABG pO2 67 L Sodium 134 L Potassium Chloride 95.5 L Carbon Dioxide BUN 38 H Creatinine 1.5 H Glucose 110 H POC Glucose Uric Acid Calcium Total Bilirubin Alkaline Phosphatase CK-MB (CK-2) CK-MB (CK-2) Rel Index Total Protein Albumin Urine WBC (Auto) 01/21/17 01/21/17 01/21/17 05:38 18:20 22:54 WBC RDW Plt Count Lymph % (Auto) Ellis % (Auto) Eos % (Auto) Baso % (Auto) Lymph # Ellis # Seg Neutrophils % Seg Neuts % (Manual) Lymphocytes % (Manual) Monocytes % (Manual) Eosinophils % (Manual) Seg Neutrophils # Lymphocytes # (Manual) Monocytes # (Manual) POC ABG pH POC ABG pCO2 POC ABG pO2 Sodium Potassium Chloride Carbon Dioxide BUN Creatinine Glucose POC Glucose 120 H 135 H 163 H Uric Acid Calcium Total Bilirubin Alkaline Phosphatase CK-MB (CK-2) CK-MB (CK-2) Rel Index Total Protein Albumin Urine WBC (Auto) 01/22/17 01/22/17 01/22/17 04:00 04:00 11:27 WBC 11.6 H RDW 18.7 H Plt Count 116 L Lymph % (Auto) 2.9 L Ellis % (Auto) 11.1 H Eos % (Auto) Baso % (Auto) Lymph # 0.3 L Ellis # 1.3 H Seg Neutrophils % 84.2 H Seg Neuts % (Manual) Lymphocytes % (Manual) Monocytes % (Manual) Eosinophils % (Manual) Seg Neutrophils # 9.8 H Lymphocytes # (Manual) Monocytes # (Manual) POC ABG pH POC ABG pCO2 POC ABG pO2 Sodium 135 L Potassium Chloride 94.6 L Carbon Dioxide BUN 43 H Creatinine 1.9 H Glucose 148 H POC Glucose 151 H Uric Acid Calcium Total Bilirubin 1.60 H Alkaline Phosphatase CK-MB (CK-2) CK-MB (CK-2) Rel Index Total Protein 5.6 L Albumin 2.8 L Urine WBC (Auto) 01/22/17 01/22/17 01/22/17 11:37 13:00 17:14 WBC RDW Plt Count Lymph % (Auto) Ellis % (Auto) Eos % (Auto) Baso % (Auto) Lymph # Ellis # Seg Neutrophils % Seg Neuts % (Manual) Lymphocytes % (Manual) Monocytes % (Manual) Eosinophils % (Manual) Seg Neutrophils # Lymphocytes # (Manual) Monocytes # (Manual) POC ABG pH POC ABG pCO2 45.2 H POC ABG pO2 Sodium Potassium Chloride Carbon Dioxide BUN Creatinine Glucose POC Glucose 178 H Uric Acid 12.0 H Calcium Total Bilirubin Alkaline Phosphatase CK-MB (CK-2) CK-MB (CK-2) Rel Index Total Protein Albumin Urine WBC (Auto) 01/22/17 01/23/17 01/23/17 23:33 04:10 04:10 WBC RDW 19.1 H Plt Count Lymph % (Auto) 3.3 L Ellis % (Auto) 11.5 H Eos % (Auto) Baso % (Auto) Lymph # 0.3 L Ellis # 1.2 H Seg Neutrophils % 83.9 H Seg Neuts % (Manual) Lymphocytes % (Manual) Monocytes % (Manual) Eosinophils % (Manual) Seg Neutrophils # 8.4 H Lymphocytes # (Manual) Monocytes # (Manual) POC ABG pH POC ABG pCO2 POC ABG pO2 Sodium 134 L Potassium Chloride 95.1 L Carbon Dioxide BUN 48 H Creatinine 2.0 H Glucose 197 H POC Glucose 202 H Uric Acid Calcium Total Bilirubin Alkaline Phosphatase CK-MB (CK-2) CK-MB (CK-2) Rel Index Total Protein Albumin Urine WBC (Auto) 01/23/17 01/23/17 01/23/17 05:19 12:16 16:51 WBC RDW Plt Count Lymph % (Auto) Ellis % (Auto) Eos % (Auto) Baso % (Auto) Lymph # Ellis # Seg Neutrophils % Seg Neuts % (Manual) Lymphocytes % (Manual) Monocytes % (Manual) Eosinophils % (Manual) Seg Neutrophils # Lymphocytes # (Manual) Monocytes # (Manual) POC ABG pH 7.317 L POC ABG pCO2 49.6 H POC ABG pO2 Sodium Potassium Chloride Carbon Dioxide BUN Creatinine Glucose POC Glucose 186 H 146 H Uric Acid Calcium Total Bilirubin Alkaline Phosphatase CK-MB (CK-2) CK-MB (CK-2) Rel Index Total Protein Albumin Urine WBC (Auto) 01/23/17 01/23/17 01/24/17 17:24 23:57 05:12 WBC RDW Plt Count Lymph % (Auto) Ellis % (Auto) Eos % (Auto) Baso % (Auto) Lymph # Ellis # Seg Neutrophils % Seg Neuts % (Manual) Lymphocytes % (Manual) Monocytes % (Manual) Eosinophils % (Manual) Seg Neutrophils # Lymphocytes # (Manual) Monocytes # (Manual) POC ABG pH POC ABG pCO2 POC ABG pO2 Sodium Potassium Chloride Carbon Dioxide BUN Creatinine Glucose POC Glucose 176 H 212 H 215 H Uric Acid Calcium Total Bilirubin Alkaline Phosphatase CK-MB (CK-2) CK-MB (CK-2) Rel Index Total Protein Albumin Urine WBC (Auto) 01/24/17 01/24/17 01/24/17 05:44 07:50 12:14 WBC RDW Plt Count Lymph % (Auto) Ellis % (Auto) Eos % (Auto) Baso % (Auto) Lymph # Ellis # Seg Neutrophils % Seg Neuts % (Manual) Lymphocytes % (Manual) Monocytes % (Manual) Eosinophils % (Manual) Seg Neutrophils # Lymphocytes # (Manual) Monocytes # (Manual) POC ABG pH POC ABG pCO2 POC ABG pO2 Sodium 136 L D Potassium 2.0 L* D Chloride 120.0 H 97.9 L Carbon Dioxide 15 L D BUN 34 H 54 H Creatinine 1.9 H D Glucose 138 H 205 H POC Glucose 210 H Uric Acid Calcium 4.8 L* D Total Bilirubin Alkaline Phosphatase 33 L CK-MB (CK-2) CK-MB (CK-2) Rel Index Total Protein 3.0 L D Albumin 1.4 L Urine WBC (Auto) 01/24/17 01/24/17 01/24/17 16:54 23:35 Unknown WBC RDW 18.6 H Plt Count 138 L Lymph % (Auto) Ellis % (Auto) Eos % (Auto) Baso % (Auto) Lymph # Ellis # Seg Neutrophils % Seg Neuts % (Manual) 71.0 H Lymphocytes % (Manual) 5.0 L Monocytes % (Manual) 18.0 H Eosinophils % (Manual) 5.0 H Seg Neutrophils # Lymphocytes # (Manual) 0.4 L Monocytes # (Manual) 1.3 H POC ABG pH POC ABG pCO2 POC ABG pO2 Sodium Potassium Chloride Carbon Dioxide BUN Creatinine Glucose POC Glucose 227 H 260 H Uric Acid Calcium Total Bilirubin Alkaline Phosphatase CK-MB (CK-2) CK-MB (CK-2) Rel Index Total Protein Albumin Urine WBC (Auto) 01/25/17 05:52 WBC RDW Plt Count Lymph % (Auto) Ellis % (Auto) Eos % (Auto) Baso % (Auto) Lymph # Ellis # Seg Neutrophils % Seg Neuts % (Manual) Lymphocytes % (Manual) Monocytes % (Manual) Eosinophils % (Manual) Seg Neutrophils # Lymphocytes # (Manual) Monocytes # (Manual) POC ABG pH POC ABG pCO2 POC ABG pO2 Sodium Potassium Chloride Carbon Dioxide BUN Creatinine Glucose POC Glucose 226 H Uric Acid Calcium Total Bilirubin Alkaline Phosphatase CK-MB (CK-2) CK-MB (CK-2) Rel Index Total Protein Albumin Urine WBC (Auto) Chest x-ray: report reviewed, image reviewed
[2017-01-25 08:54] LABS: Hematocrit 41.6 % (30.3-42.9); Hemoglobin 13.5 gm/dl (10.1-14.3); Mean Corpuscular HGB Conc 33 % (30-34); Mean Corpuscular Hemoglobin 29 pg (28-32); Mean Corpuscular Volume 89 fl (79-97); Platelet Count 153 K/mm3 (140-440); Red Blood Count 4.71 M/mm3 (3.65-5.03); Red Cell Distribution Width 18.9 % (13.2-15.2); White Blood Count 7.9 K/mm3 (4.5-11.0)
[2017-01-25 09:13] LABS: BUN/Creatinine Ratio 34.37; Calcium 9.5 mg/dL (8.4-10.2)
[2017-01-25 09:14] LABS: Potassium 4.2 mmol/L (3.6-5.0)
[2017-01-25] MEDS: BABY ASPIRIN PO SCH (09:45)
[2017-01-25] MEDS: PEPCID PO SCH ×2 (09:45→21:09)
[2017-01-25] MEDS: LOPRESSOR PO SCH ×3 (09:46→21:09)
[2017-01-25] MEDS: PERCOCET 5/325 PO PRN ×2 (10:48→22:01)
--- NOTE | 2017-01-25 11:32 | Progress Note ---
Assessment and Plan S/p PEA cardiorespiratory arrest 01/19 Extubated Ade negative for AMI s/p code; ECG with no ischemic changes Dobutamine gtt d/c'd s/p IV amio 150mg bolus x 1. 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 consider resuming IV lasix if okay per nephrology. cont lopressor. ACEI/ARB held in setting of CIERRA. Aspiration PNA ID following. CIERRA / Hyperkalemia nephrology following Hyponatremia monitor Accelerated junction arrhythmia / 1st degree AV block Per EP, QRS vector same as office EKG unlikely VT Also with intermittent SR with prolonged NM v. IVCD v. idioventricular rhythm noted on tele. continue lopressor Cardiomyopathy EF 10 - 15% NSVT Diabetes Hypertension Hyperlipidemia History of Breast CA Obesity Increase lopressor to 25mg PO TID for more optimal HR control. Consider resuming IV lasix if okay per nephrology as renal indices appear to be improving. Overall poor prognosis. The patient has been seen in conjunction with Dr. Del Castillo who agrees with the assessment and plan of care. Subjective Date of service: 01/25/17 Principal diagnosis: CHF exacerbation Interval history: Pt resting in bed, on O2 via [place]. States she is feeling a little better. In apparent 1st degree AV block with IVCD on tele. Objective Last Vital Signs Temp 97.4 F L 01/25/17 08:00 Pulse 110 H 01/25/17 10:01 Resp 24 01/25/17 10:01 BP 118/85 01/25/17 10:01 Pulse Ox 97 01/25/17 10:01 - Physical Examination General: Appears Well HEENT: Positive: PERRL, EOMI Neck: Positive: neck supple, trachea midline. Negative: JVD/HJR Cardiac: Positive: S1/S2, Tachycardia Lungs: Positive: Decreased Breath Sounds, Oxygen Neuro: Positive: Grossly Intact Abdomen: Positive: Unremarkable, Soft, Active Bowel Sounds Skin: Negative: Rash, Suspicious Lesions Extremities: Present: edema (trace BLE ), warm, Other (chronic venous stasis changes) - Labs and Meds CBC 01/25/17 Range/Units 07:54 WBC 7.9 (4.5-11.0) K/mm3 RBC 4.71 (3.65-5.03) M/mm3 Hgb 13.5 (10.1-14.3) gm/dl Hct 41.6 (30.3-42.9) % Plt Count 153 (140-440) K/mm3 Comprehensive Metabolic Panel 01/25/17 Range/Units 07:54 Sodium 135 L (137-145) mmol/L Potassium 4.2 (3.6-5.0) mmol/L Chloride 97.0 L (98-107) mmol/L Carbon Dioxide 26 (22-30) mmol/L BUN 55 H (7-17) mg/dL Creatinine 1.6 H (0.7-1.2) mg/dL Glucose 235 H (65-100) mg/dL Calcium 9.5 (8.4-10.2) mg/dL - Imaging and Cardiology EKG: report reviewed (Tachycardia of 128/min Junctional rhythm) Stress echo: report reviewed (Cardiac PET 11/11: very small mild anterior, anteroapical mild reversible defect. EF stress 58%) Echo: report reviewed (ECHO 11/16: TDS, EF cannot be determined due to poor image quality, ) Cardiac cath: report reviewed ([facility] 06/07: LM: patent, LCX: diffuse disease, LAD: diffuse disease, RCA: diffuse disease, mid 40%) - Telemetry EKG Rhythm: 1st Degree HB
[2017-01-25] MEDS: LEVEMIR SUB-Q SCH (12:50)
--- NOTE | 2017-01-25 12:50 | Progress Note ---
Assessment and Plan Assessment and plan: S/p PEA cardiorespiratory arrest 01/19. s/p IV amio 150mg bolus x 1. Patient is currently extubated and tolerating O2. Cardiology following. Cardiac isoenzymes negative for AMI s/p code; ECG with no ischemic changes.patient previously on Dobutamine gtt which has now been discontinued. 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 Cont strict I/O. The diuretics held in setting of CIERRA. consider resuming IV lasix if okay per nephrology. Cont lopressor. ACEI/ARB held in setting of CIERRA. Aspiration PNA. Continue IV antibiotics. ID following. Acute renal failure. Etiology secondary to CIERRA and vasomotor nephropathy. Nephrology following. Avoid nephrotoxic agents. Maintain MAP greater than 65. Hyponatremia. Follow-up BMP Accelerated junction arrhythmia / 1st degree AV block. Cardiology following. Continue Lopressor. Cardiomyopathy. 01/15/2017 2D echocardiogram reported as global left ventricular systolic function is severely decreased, estimated EF is 10-15%, left atrium mildly dilated, right ventricle is mild to moderately dilated, right ventricular global systolic function is moderately reduced, right atrium is mild to moderate dilated, trace AR, no , mitral annular calcification, mild MR, no ms, moderate TR, right ventricular systolic function is calculated at 48mmhg, there is small pericardial effusion which does not appear to be hemodynamically significant NSVT. Continue medications as above per cardiology. Acute metabolic encephalopathy. Resolved. Diabetes type II, uncontrolled. Continue sliding scale and Accu-Cheks. Hypertension. Continue antihypertensive medications. Hyperlipidemia History of Breast CA Obesity History Interval history: No new issues overnight. Hospitalist Physical - Constitutional Vitals: Temp Pulse Resp BP Pulse Ox 97.8 F 107 H 26 H 119/77 97 01/25/17 12:00 01/25/17 11:00 01/25/17 11:00 01/25/17 11:00 01/25/17 11:00 General appearance: Present: no acute distress, obese (morbidly obese, BiPAP mask) - EENT Eyes: Present: PERRL, EOM intact ENT: hearing intact, clear oral mucosa, dentition normal - Neck Neck: Present: supple, normal ROM - Respiratory Respiratory effort: normal Respiratory: bilateral: CTA - Cardiovascular Rhythm: regular Heart Sounds: Present: S1 & S2. Absent: gallop, rub - Extremities Extremities: no ischemia, No edema, Full ROM - Abdominal General gastrointestinal: soft, non-tender, non-distended, normal bowel sounds - Integumentary Integumentary: Present: clear, warm, dry - Neurologic Neurologic: CNII-XII intact, moves all extremities Results - Labs CBC & Chem 7: 01/25/17 07:54 01/25/17 07:54 Labs: Laboratory Last Values WBC 7.9 K/mm3 (4.5-11.0) 01/25/17 07:54 RBC 4.71 M/mm3 (3.65-5.03) 01/25/17 07:54 Hgb 13.5 gm/dl (10.1-14.3) 01/25/17 07:54 Hct 41.6 % (30.3-42.9) 01/25/17 07:54 MCV 89 fl (79-97) 01/25/17 07:54 MCH 29 pg (28-32) 01/25/17 07:54 MCHC 33 % (30-34) 01/25/17 07:54 RDW 18.9 % (13.2-15.2) H 01/25/17 07:54 Plt Count 153 K/mm3 (140-440) 01/25/17 07:54 Lymph % (Auto) 3.3 % (13.4-35.0) L 01/23/17 04:10 Sharkey % (Auto) Marketing Developer 01/24/17 Unknown Eos % (Auto) 0.8 % (0.0-4.3) 01/23/17 04:10 Baso % (Auto) 0.5 % (0.0-1.8) 01/23/17 04:10 Lymph # 0.3 K/mm3 (1.2-5.4) L 01/23/17 04:10 Sharkey # 1.2 K/mm3 (0.0-0.8) H 01/23/17 04:10 Eos # 0.1 K/mm3 (0.0-0.4) 01/23/17 04:10 Baso # 0.0 K/mm3 (0.0-0.1) 01/23/17 04:10 Add Manual Diff Complete 01/24/17 Unknown Total Counted 100 01/24/17 Unknown Seg Neutrophils % 83.9 % (40.0-70.0) H 01/23/17 04:10 Seg Neuts % (Manual) 71.0 % (40.0-70.0) H 01/24/17 Unknown Band Neutrophils % 0 % 01/24/17 Unknown Lymphocytes % (Manual) 5.0 % (13.4-35.0) L 01/24/17 Unknown Reactive Lymphs % (Man) 0 % 01/24/17 Unknown Monocytes % (Manual) 18.0 % (0.0-7.3) H 01/24/17 Unknown Eosinophils % (Manual) 5.0 % (0.0-4.3) H 01/24/17 Unknown Basophils % (Manual) 1.0 % (0.0-1.8) 01/24/17 Unknown Metamyelocytes % 0 % 01/24/17 Unknown Myelocytes % 0 % 01/24/17 Unknown Promyelocytes % 0 % 01/24/17 Unknown Blast Cells % 0 % 01/24/17 Unknown Nucleated RBC % Not Reportable 01/24/17 Unknown Seg Neutrophils # 8.4 K/mm3 (1.8-7.7) H 01/23/17 04:10 Seg Neutrophils # Man 5.1 K/mm3 (1.8-7.7) 01/24/17 Unknown Band Neutrophils # 0.0 K/mm3 01/24/17 Unknown Lymphocytes # (Manual) 0.4 K/mm3 (1.2-5.4) L 01/24/17 Unknown Abs React Lymphs (Man) 0.0 K/mm3 01/24/17 Unknown Monocytes # (Manual) 1.3 K/mm3 (0.0-0.8) H 01/24/17 Unknown Eosinophils # (Manual) 0.4 K/mm3 (0.0-0.4) 01/24/17 Unknown Basophils # (Manual) 0.1 K/mm3 (0.0-0.1) 01/24/17 Unknown Metamyelocytes # 0.0 K/mm3 01/24/17 Unknown Myelocytes # 0.0 K/mm3 01/24/17 Unknown Promyelocytes # 0.0 K/mm3 01/24/17 Unknown Blast Cells # 0.0 K/mm3 01/24/17 Unknown WBC Morphology Not Reportable 01/24/17 Unknown Hypersegmented Neuts Not Reportable 01/24/17 Unknown Hyposegmented Neuts Not Reportable 01/24/17 Unknown Hypogranular Neuts Not Reportable 01/24/17 Unknown Smudge Cells Not Reportable 01/24/17 Unknown Toxic Granulation Not Reportable 01/24/17 Unknown Toxic Vacuolation Not Reportable 01/24/17 Unknown Dohle Bodies Not Reportable 01/24/17 Unknown Pelger-Huet Anomaly Not Reportable 01/24/17 Unknown Yusuf Rods Not Reportable 01/24/17 Unknown Platelet Estimate Consistent w auto 01/24/17 Unknown Clumped Platelets Not Reportable 01/24/17 Unknown Plt Clumps, EDTA Not Reportable 01/24/17 Unknown Large Platelets Not Reportable 01/24/17 Unknown Giant Platelets Not Reportable 01/24/17 Unknown Platelet Satelliting Not Reportable 01/24/17 Unknown Plt Morphology Comment Not Reportable 01/24/17 Unknown RBC Morphology Normal 01/24/17 Unknown Dimorphic RBCs Not Reportable 01/24/17 Unknown Polychromasia Not Reportable 01/24/17 Unknown Hypochromasia Not Reportable 01/24/17 Unknown Poikilocytosis Not Reportable 01/24/17 Unknown Anisocytosis Not Reportable 01/24/17 Unknown Microcytosis Not Reportable 01/24/17 Unknown Macrocytosis Not Reportable 01/24/17 Unknown Spherocytes Not Reportable 01/24/17 Unknown Pappenheimer Bodies Not Reportable 01/24/17 Unknown Sickle Cells Not Reportable 01/24/17 Unknown Target Cells Not Reportable 01/24/17 Unknown Tear Drop Cells Not Reportable 01/24/17 Unknown Ovalocytes Not Reportable 01/24/17 Unknown Helmet Cells Not Reportable 01/24/17 Unknown [place] Bodies Not Reportable 01/24/17 Unknown Winston Rings Not Reportable 01/24/17 Unknown Rodanthe Cells Not Reportable 01/24/17 Unknown Bite Cells Not Reportable 01/24/17 Unknown Crenated Cell Not Reportable 01/24/17 Unknown Elliptocytes Not Reportable 01/24/17 Unknown Acanthocytes (Spur) Not Reportable 01/24/17 Unknown Rouleaux Not Reportable 01/24/17 Unknown Hemoglobin C Crystals Not Reportable 01/24/17 Unknown Schistocytes Not Reportable 01/24/17 Unknown Malaria parasites Not Reportable 01/24/17 Unknown Trevor Bodies Not Reportable 01/24/17 Unknown Hem Pathologist Commnt No 01/24/17 Unknown POC ABG pH 7.317 (7.35-7.45) L 01/23/17 16:51 POC ABG pCO2 49.6 (35-45) H 01/23/17 16:51 POC ABG pO2 93 (80-105) 01/23/17 16:51 POC ABG HCO3 25.4 01/23/17 16:51 POC ABG Total CO2 27 01/23/17 16:51 POC ABG O2 Sat 96 01/23/17 16:51 POC ABG Base Excess -1 01/23/17 16:51 FiO2 35 % 01/23/17 16:51 Sodium 135 mmol/L (137-145) L 01/25/17 07:54 Potassium 4.2 mmol/L (3.6-5.0) 01/25/17 07:54 Chloride 97.0 mmol/L (98-107) L 01/25/17 07:54 Carbon Dioxide 26 mmol/L (22-30) 01/25/17 07:54 Anion Gap 16 mmol/L 01/25/17 07:54 BUN 55 mg/dL (7-17) H 01/25/17 07:54 Creatinine 1.6 mg/dL (0.7-1.2) H 01/25/17 07:54 Estimated GFR 38 ml/min 01/25/17 07:54 BUN/Creatinine Ratio 34.37 % 01/25/17 07:54 Glucose 235 mg/dL (65-100) H 01/25/17 07:54 POC Glucose 226 (70-105) H 01/25/17 05:52 Osmolality 298 Mosm/kg 01/22/17 13:00 Uric Acid 12.0 mg/dL (3.5-7.6) H 01/22/17 13:00 Calcium 9.5 mg/dL (8.4-10.2) 01/25/17 07:54 Magnesium 2.00 mg/dL (1.7-2.3) 01/22/17 04:00 Total Bilirubin 1.60 mg/dL (0.1-1.2) H 01/22/17 04:00 AST 25 units/L (5-40) 01/22/17 04:00 ALT 12 units/L (7-56) 01/22/17 04:00 Alkaline Phosphatase 63 units/L (35-129) 01/22/17 04:00 Total Creatine Kinase 98 units/L (30-135) 01/19/17 13:02 CK-MB (CK-2) 4.1 ng/mL (0.0-4.0) H 01/19/17 13:02 CK-MB (CK-2) Rel Index 4.1 (0-4) H 01/19/17 13:02 Troponin T 0.022 ng/mL (0.00-0.029) 01/19/17 13:02 NT-Pro-B Natriuret Pep 8400 pg/mL (0-900) H 01/15/17 09:03 Total Protein 5.6 g/dL (6.3-8.2) L 01/22/17 04:00 Albumin 2.8 g/dL (3.9-5) L 01/22/17 04:00 Albumin/Globulin Ratio 1.0 % 01/22/17 04:00 Urine Color Yellow (Yellow) 01/20/17 09:34 Urine Turbidity Clear (Clear) 01/20/17 09:34 Urine pH 5.0 (5.0-7.0) 01/20/17 09:34 Ur Specific [place] 1.006 (1.003-1.030) 01/20/17 09:34 Urine Protein <15 mg/dl mg/dL (Negative) 01/20/17 09:34 Urine Glucose (UA) Neg mg/dL (Negative) 01/20/17 09:34 Urine Ketones Neg mg/dL (Negative) 01/20/17 09:34 Urine Blood Mod (Negative) 01/20/17 09:34 Urine Nitrite Neg (Negative) 01/20/17 09:34 Urine Bilirubin Neg (Negative) 01/20/17 09:34 Urine Urobilinogen < 2.0 mg/dL (<2.0) 01/20/17 09:34 Ur Leukocyte Esterase Mod (Negative) 01/20/17 09:34 Urine WBC (Auto) 15.0 /HPF (0.0-6.0) H 01/20/17 09:34 Urine RBC (Auto) 12.0 /HPF (0.0-6.0) 01/20/17 09:34 U Epithel Cells (Auto) 2.0 /HPF (0-13.0) 01/20/17 09:34 Urine Bacteria (Auto) 1+ /HPF (Negative) 01/20/17 09:34 Amorphous Crystals Few 01/20/17 09:34 Urine Yeast (Budding) 1+ /HPF 01/20/17 09:34 Vancomycin Trough 16.5 ug/mL (5.0-20.0) 01/22/17 13:00
[2017-01-25] MEDS: VANCOMYCIN 2,000 MG in NACL 0.9% 500 ML 500 ML IV SCH (13:21)
--- NOTE | 2017-01-25 15:34 | Progress Note ---
Subjective Principal diagnosis: CHF exacerbation Interval history: Patient was seen today for follow-up on multiple renal related issues Events of cost 24 hours noted,creatinine is currently better at 1.6 Creatinine has currently been stable Vitals labs intake output and medications were reviewed Social history: Reviewed Family history: Reviewed Allergy: Reviewed Physical examination Vitals: Reviewed Gen.: No acute distress HEENT: Oral mucosa moist Neck: Supple no JVD Chest: Bilateral clear to auscultation no crackles rales or wheezes Heart: Regular rate and rhythm S1 and S2 heard Abdomen: Soft nontender no voluntary guarding rigidity rebound Extremity: Minimal edema dry skin Dermatology; dry skin no edema Assessment and plan Renal function appears to be improving creatinine is currently 1.6 bicarbonate 26 sodium 135 Patient is clinically nonoliguric and appears to be improving Would recommend judicious use of antibiotics and diuretics Avoid hypotension nephrotoxic medications Maintain MAP 65 or more Avoid nephrotoxic medication Severe cardiomyopathy, status post arrest, currently being treated for aspiration Prognosis appears to be poor in general We'll continue to follow and make recommendation from renal standpoint Objective - Vital Signs Vital signs: Vital Signs - 12hr 01/25/17 01/25/17 01/25/17 04:00 04:25 05:00 Temperature 97.4 F L Pulse Rate 100 H 103 H 103 H Respiratory 14 17 14 Rate Blood Pressure 127/82 127/82 98/56 O2 Sat by Pulse 100 98 95 Oximetry 01/25/17 01/25/17 01/25/17 06:00 07:00 08:00 Temperature 97.4 F L Pulse Rate 100 H 105 H 107 H Respiratory 22 16 14 Rate Blood Pressure 98/62 110/71 113/77 O2 Sat by Pulse 98 97 99 Oximetry 01/25/17 01/25/17 01/25/17 08:09 09:00 09:46 Temperature Pulse Rate 106 H 108 H Respiratory 19 Rate Blood Pressure 112/70 118/85 O2 Sat by Pulse 100 98 Oximetry 01/25/17 01/25/17 01/25/17 10:01 11:00 12:00 Temperature 97.8 F Pulse Rate 110 H 107 H 107 H Respiratory 24 26 H 20 Rate Blood Pressure 118/85 119/77 104/56 O2 Sat by Pulse 97 97 96 Oximetry 01/25/17 01/25/17 01/25/17 12:42 13:00 13:20 Temperature Pulse Rate 107 H 103 H Respiratory 19 Rate Blood Pressure 94/63 94/63 O2 Sat by Pulse 98 95 Oximetry 01/25/17 14:00 Temperature Pulse Rate 108 H Respiratory 20 Rate Blood Pressure 131/87 O2 Sat by Pulse 98 Oximetry - Lab 01/25/17 07:54 01/25/17 07:54 Most recent lab results Calcium 9.5 mg/dL (8.4-10.2) 01/25/17 07:54 Magnesium 2.00 mg/dL (1.7-2.3) 01/22/17 04:00
--- NOTE | 2017-01-25 17:12 | Progress Note ---
Assessment and Plan - Patient Problems (1) Aspiration pneumonia Current Visit: Yes Status: Acute Qualifiers: Aspiration pneumonia type: A Laterality: L Lung location: L Plan to address problem: 1. Continue Vancomycin through doses on January 27, 2017. 2. Continue to monitor clinically. (2) Acute exacerbation of CHF (congestive heart failure) Current Visit: Yes Status: Acute Qualifiers: Congestive heart failure type: combined Qualified Code(s): I50.43 - Acute on chronic combined systolic (congestive) and diastolic (congestive) heart failure Subjective Date of service: 01/25/17 Principal diagnosis: CHF exacerbation Interval history: Remains in ICU. On Bipap. No new issues. Objective - Constitutional Vitals: Vital Signs Temp Pulse Resp BP Pulse Ox 97.8 F 108 H 20 131/87 98 01/25/17 12:00 01/25/17 14:00 01/25/17 14:00 01/25/17 14:00 01/25/17 14:00 Temperature -Last 24 Hours Temperature 97.8 F Temperature 97.4 F Temperature 97.4 F Temperature 97.5 F Temperature 97.5 F General appearance: Present: no acute distress, obese - Respiratory Respiratory effort: normal Respiratory: bilateral: diminished - Cardiovascular Rhythm: regular (tachycardic to 100s) Extremities: No edema - Gastrointestinal General gastrointestinal: Present: soft, non-distended, other (obese) - Integumentary Integumentary: clear, no rash - Labs CBC & Chem 7: 01/25/17 07:54 01/25/17 07:54 Labs: Abnormal lab results 01/24/17 01/24/17 01/24/17 Range/Units 12:14 16:54 23:35 RDW (13.2-15.2) % Sodium (137-145) mmol/L Chloride (98-107) mmol/L BUN (7-17) mg/dL Creatinine (0.7-1.2) mg/dL Glucose (65-100) mg/dL POC Glucose 210 H 227 H 260 H (70-105) 01/25/17 01/25/17 01/25/17 Range/Units 05:52 07:54 07:54 RDW 18.9 H (13.2-15.2) % Sodium 135 L (137-145) mmol/L Chloride 97.0 L (98-107) mmol/L BUN 55 H (7-17) mg/dL Creatinine 1.6 H (0.7-1.2) mg/dL Glucose 235 H (65-100) mg/dL POC Glucose 226 H (70-105) 01/25/17 Range/Units 11:38 RDW (13.2-15.2) % Sodium (137-145) mmol/L Chloride (98-107) mmol/L BUN (7-17) mg/dL Creatinine (0.7-1.2) mg/dL Glucose (65-100) mg/dL POC Glucose 226 H (70-105) Microbiology 01/20/17 10:00 Peripheral/Venous Blood Culture - Final NO GROWTH AFTER 5 DAYS 01/20/17 10:00 Peripheral/Venous Blood Culture - Final NO GROWTH AFTER 5 DAYS 01/20/17 10:08 Urine,Catheterized - Indwelling Catheter Urine Culture - Final Enterococcus Faecalis 01/19/17 12:33 Tracheal Aspirate Sputum Culture - Final
[2017-01-25] MEDS: ZOCOR PO SCH (21:09)
[2017-01-25] MEDS: TYLENOL PO PRN (22:00)
[2017-01-26] MEDS: NOVOLOG SUB-Q SCH ×3 (06:58→18:24)
[2017-01-26] MEDS: HEPARIN SUB-Q SCH ×3 (06:59→21:09)
[2017-01-26] MEDS: LOPRESSOR PO SCH ×3 (08:04→21:07)
--- NOTE | 2017-01-26 08:27 | XRay Report ---
AP chest x-ray. History: Followup respiratory failure. Findings: Since yesterday's study, there is continued mild improvement in the CHF pattern with resolution of an area of discoid atelectasis in the left upper lobe. There are no other interval changes.
--- NOTE | 2017-01-26 08:44 | Progress Note ---
Assessment and Plan Dilated CMP Acute systolic CHF CIERRA Acute respiratory failure, hypoxia. Morbid obesity s/p PEA arrest Aspiration pneumonitis .CXR better, decreased CHF UTI.Completing ABX Rec BPAP has needed but otherwise continues to improve.Off Dobutamine Continue CHF care Monitor I/O adjust as needed Cards f/u Discussed with family in detail. CCT 31 min Subjective Date of service: 01/26/17 Principal diagnosis: CHF exacerbation Interval history: Feels better.No events reported overnight. Dis not tolerated HFO for long yesterday.On BPAP/NIV most of the time Objective Vital Signs - 12hr 01/25/17 01/25/17 01/25/17 21:00 21:09 22:00 Temperature Pulse Rate 106 H 103 H 111 H Pulse Rate [ From Monitor] Respiratory 18 20 Rate Blood Pressure 114/84 114/84 114/76 O2 Sat by Pulse 97 98 Oximetry 01/25/17 01/25/17 01/25/17 22:01 23:00 23:01 Temperature Pulse Rate 100 H Pulse Rate [ From Monitor] Respiratory 22 14 13 Rate Blood Pressure 81/51 O2 Sat by Pulse 96 Oximetry 01/25/17 01/26/17 01/26/17 23:47 00:00 01:00 Temperature 97.5 F L Pulse Rate 99 H 101 H Pulse Rate [ 99 H From Monitor] Respiratory 17 13 Rate Blood Pressure 87/60 104/65 O2 Sat by Pulse 96 97 Oximetry 01/26/17 01/26/17 01/26/17 01:30 02:00 03:00 Temperature Pulse Rate 102 H 101 H 100 H Pulse Rate [ From Monitor] Respiratory 17 15 Rate Blood Pressure 105/74 114/63 O2 Sat by Pulse 100 99 Oximetry 01/26/17 01/26/17 01/26/17 04:00 05:00 06:00 Temperature 97.7 F Pulse Rate 101 H 106 H 100 H Pulse Rate [ 101 H From Monitor] Respiratory 16 16 17 Rate Blood Pressure 95/60 109/68 98/62 O2 Sat by Pulse 98 98 99 Oximetry 01/26/17 01/26/17 01/26/17 07:00 08:00 08:04 Temperature 98.8 F Pulse Rate 100 H 91 H 98 H Pulse Rate [ 98 H From Monitor] Respiratory 16 18 Rate Blood Pressure 93/70 97/73 92/68 O2 Sat by Pulse 99 100 Oximetry Constitutional: no acute distress, alert Eyes: non-icteric ENT: oropharynx moist Neck: supple, no JVD Effort: normal Ascultation: Bilateral: clear, diminished breath sounds (bases), rhonchi ( bilateral), other (coarse, equal BS bilaterally) Cardiovascular: irregular rhythm Gastrointestinal: normoactive bowel sounds, soft, other (obese) Integumentary: normal Extremities: no cyanosis, no edema, pink and warm, other (SCDs are in place) Neurologic: normal mental status, non-focal exam, pupils equal and round Psychiatric: mood appropriate, affect normal CBC and BMP: 01/28/17 05:00 01/28/17 05:00 ABG, PT/INR, D-dimer: ABG POC ABG pH 7.317 (7.35-7.45) L 01/23/17 16:51 POC ABG pCO2 49.6 (35-45) H 01/23/17 16:51 POC ABG pO2 93 (80-105) 01/23/17 16:51 POC ABG HCO3 25.4 01/23/17 16:51 POC ABG Total CO2 27 01/23/17 16:51 POC ABG O2 Sat 96 01/23/17 16:51 Abnormal lab findings: Abnormal Labs 01/15/17 01/15/17 01/15/17 17:45 22:06 23:40 WBC RDW 18.6 H Plt Count 114 L Lymph % (Auto) [place] % (Auto) Eos % (Auto) Baso % (Auto) Lymph # [place] # Seg Neutrophils % Seg Neuts % (Manual) 82.0 H Lymphocytes % (Manual) 7.0 L Monocytes % (Manual) Eosinophils % (Manual) Seg Neutrophils # Lymphocytes # (Manual) 0.4 L Monocytes # (Manual) POC ABG pH POC ABG pCO2 POC ABG pO2 Sodium Potassium Chloride Carbon Dioxide BUN Creatinine Glucose POC Glucose 147 H 135 H Uric Acid Calcium Total Bilirubin Alkaline Phosphatase CK-MB (CK-2) CK-MB (CK-2) Rel Index Total Protein Albumin Urine WBC (Auto) 01/15/17 01/16/17 01/16/17 23:40 03:44 08:49 WBC RDW Plt Count Lymph % (Auto) [place] % (Auto) Eos % (Auto) Baso % (Auto) Lymph # [place] # Seg Neutrophils % Seg Neuts % (Manual) Lymphocytes % (Manual) Monocytes % (Manual) Eosinophils % (Manual) Seg Neutrophils # Lymphocytes # (Manual) Monocytes # (Manual) POC ABG pH POC ABG pCO2 POC ABG pO2 Sodium 132 L Potassium 5.1 H Chloride 95.5 L Carbon Dioxide 20 L BUN 36 H Creatinine Glucose 128 H POC Glucose 117 H 126 H Uric Acid Calcium Total Bilirubin Alkaline Phosphatase CK-MB (CK-2) CK-MB (CK-2) Rel Index Total Protein Albumin Urine WBC (Auto) 01/16/17 01/16/17 01/16/17 08:56 08:56 12:06 WBC RDW 19.2 H Plt Count Lymph % (Auto) 6.6 L [place] % (Auto) 12.0 H Eos % (Auto) 5.8 H Baso % (Auto) 1.9 H Lymph # 0.3 L [place] # Seg Neutrophils % 73.7 H Seg Neuts % (Manual) Lymphocytes % (Manual) Monocytes % (Manual) Eosinophils % (Manual) Seg Neutrophils # Lymphocytes # (Manual) Monocytes # (Manual) POC ABG pH POC ABG pCO2 POC ABG pO2 Sodium 132 L Potassium Chloride 95.1 L Carbon Dioxide 19 L BUN 36 H Creatinine 1.3 H Glucose 129 H POC Glucose 172 H Uric Acid Calcium Total Bilirubin 1.40 H Alkaline Phosphatase CK-MB (CK-2) CK-MB (CK-2) Rel Index Total Protein 6.2 L Albumin 3.1 L Urine WBC (Auto) 01/16/17 01/17/17 01/17/17 22:34 05:29 05:29 WBC RDW 19.2 H Plt Count Lymph % (Auto) 5.9 L [place] % (Auto) 10.8 H Eos % (Auto) Baso % (Auto) Lymph # 0.4 L [place] # Seg Neutrophils % 80.1 H Seg Neuts % (Manual) Lymphocytes % (Manual) Monocytes % (Manual) Eosinophils % (Manual) Seg Neutrophils # Lymphocytes # (Manual) Monocytes # (Manual) POC ABG pH POC ABG pCO2 POC ABG pO2 Sodium 131 L Potassium 5.3 H Chloride 94.8 L Carbon Dioxide 21 L BUN 39 H Creatinine 1.4 H Glucose 196 H POC Glucose 210 H Uric Acid Calcium Total Bilirubin Alkaline Phosphatase CK-MB (CK-2) CK-MB (CK-2) Rel Index Total Protein Albumin Urine WBC (Auto) 01/17/17 01/17/17 01/17/17 07:39 17:39 22:45 WBC RDW Plt Count Lymph % (Auto) [place] % (Auto) Eos % (Auto) Baso % (Auto) Lymph # [place] # Seg Neutrophils % Seg Neuts % (Manual) Lymphocytes % (Manual) Monocytes % (Manual) Eosinophils % (Manual) Seg Neutrophils # Lymphocytes # (Manual) Monocytes # (Manual) POC ABG pH POC ABG pCO2 POC ABG pO2 Sodium Potassium Chloride Carbon Dioxide BUN Creatinine Glucose POC Glucose 198 H 208 H 223 H Uric Acid Calcium Total Bilirubin Alkaline Phosphatase CK-MB (CK-2) CK-MB (CK-2) Rel Index Total Protein Albumin Urine WBC (Auto) 01/18/17 01/18/17 01/18/17 05:07 08:32 12:24 WBC RDW Plt Count Lymph % (Auto) [place] % (Auto) Eos % (Auto) Baso % (Auto) Lymph # [place] # Seg Neutrophils % Seg Neuts % (Manual) Lymphocytes % (Manual) Monocytes % (Manual) Eosinophils % (Manual) Seg Neutrophils # Lymphocytes # (Manual) Monocytes # (Manual) POC ABG pH POC ABG pCO2 POC ABG pO2 Sodium 129 L Potassium 5.2 H Chloride 92.0 L Carbon Dioxide BUN 41 H Creatinine 1.5 H Glucose 228 H POC Glucose 236 H 230 H Uric Acid Calcium Total Bilirubin Alkaline Phosphatase CK-MB (CK-2) CK-MB (CK-2) Rel Index Total Protein Albumin Urine WBC (Auto) 01/18/17 01/19/17 01/19/17 16:00 03:46 03:46 WBC RDW 18.9 H Plt Count Lymph % (Auto) [place] % (Auto) Eos % (Auto) Baso % (Auto) Lymph # [place] # Seg Neutrophils % Seg Neuts % (Manual) Lymphocytes % (Manual) Monocytes % (Manual) Eosinophils % (Manual) Seg Neutrophils # Lymphocytes # (Manual) Monocytes # (Manual) POC ABG pH POC ABG pCO2 POC ABG pO2 Sodium 128 L Potassium Chloride 92.3 L Carbon Dioxide 21 L BUN 40 H Creatinine 1.4 H Glucose 178 H POC Glucose 253 H Uric Acid Calcium Total Bilirubin Alkaline Phosphatase CK-MB (CK-2) CK-MB (CK-2) Rel Index Total Protein Albumin Urine WBC (Auto) 01/19/17 01/19/1717 09:21 11:45 13:02 WBC RDW Plt Count Lymph % (Auto) [place] % (Auto) Eos % (Auto) Baso % (Auto) Lymph # [place] # Seg Neutrophils % Seg Neuts % (Manual) Lymphocytes % (Manual) Monocytes % (Manual) Eosinophils % (Manual) Seg Neutrophils # Lymphocytes # (Manual) Monocytes # (Manual) POC ABG pH POC ABG pCO2 POC ABG pO2 Sodium 131 L Potassium Chloride 92.8 L Carbon Dioxide BUN 39 H Creatinine 1.4 H Glucose 159 H POC Glucose 135 H 125 H Uric Acid Calcium Total Bilirubin Alkaline Phosphatase CK-MB (CK-2) 4.1 H CK-MB (CK-2) Rel Index 4.1 H Total Protein Albumin Urine WBC (Auto) 01/19/17 01/20/17 01/20/17 15:48 04:00 05:45 WBC 11.5 H RDW 18.9 H Plt Count 131 L Lymph % (Auto) [place] % (Auto) Eos % (Auto) Baso % (Auto) Lymph # [place] # Seg Neutrophils % Seg Neuts % (Manual) Lymphocytes % (Manual) Monocytes % (Manual) Eosinophils % (Manual) Seg Neutrophils # Lymphocytes # (Manual) Monocytes # (Manual) POC ABG pH POC ABG pCO2 POC ABG pO2 189 H Sodium 129 L Potassium Chloride 91.4 L Carbon Dioxide BUN 37 H Creatinine 1.3 H Glucose POC Glucose Uric Acid Calcium Total Bilirubin Alkaline Phosphatase CK-MB (CK-2) CK-MB (CK-2) Rel Index Total Protein Albumin Urine WBC (Auto) 01/20/17 01/20/17 01/21/17 06:09 09:34 00:26 WBC RDW Plt Count Lymph % (Auto) [place] % (Auto) Eos % (Auto) Baso % (Auto) Lymph # [place] # Seg Neutrophils % Seg Neuts % (Manual) Lymphocytes % (Manual) Monocytes % (Manual) Eosinophils % (Manual) Seg Neutrophils # Lymphocytes # (Manual) Monocytes # (Manual) POC ABG pH POC ABG pCO2 POC ABG pO2 67 L Sodium Potassium Chloride Carbon Dioxide BUN Creatinine Glucose POC Glucose 109 H Uric Acid Calcium Total Bilirubin Alkaline Phosphatase CK-MB (CK-2) CK-MB (CK-2) Rel Index Total Protein Albumin Urine WBC (Auto) 15.0 H 01/21/17 01/21/17 01/21/17 04:23 05:20 05:20 WBC 11.8 H RDW 18.9 H Plt Count 135 L Lymph % (Auto) [place] % (Auto) Eos % (Auto) Baso % (Auto) Lymph # [place] # Seg Neutrophils % Seg Neuts % (Manual) Lymphocytes % (Manual) Monocytes % (Manual) Eosinophils % (Manual) Seg Neutrophils # Lymphocytes # (Manual) Monocytes # (Manual) POC ABG pH 7.338 L POC ABG pCO2 48.6 H POC ABG pO2 67 L Sodium 134 L Potassium Chloride 95.5 L Carbon Dioxide BUN 38 H Creatinine 1.5 H Glucose 110 H POC Glucose Uric Acid Calcium Total Bilirubin Alkaline Phosphatase CK-MB (CK-2) CK-MB (CK-2) Rel Index Total Protein Albumin Urine WBC (Auto) 01/21/17 01/21/17 01/21/17 05:38 18:20 22:54 WBC RDW Plt Count Lymph % (Auto) [place] % (Auto) Eos % (Auto) Baso % (Auto) Lymph # [place] # Seg Neutrophils % Seg Neuts % (Manual) Lymphocytes % (Manual) Monocytes % (Manual) Eosinophils % (Manual) Seg Neutrophils # Lymphocytes # (Manual) Monocytes # (Manual) POC ABG pH POC ABG pCO2 POC ABG pO2 Sodium Potassium Chloride Carbon Dioxide BUN Creatinine Glucose POC Glucose 120 H 135 H 163 H Uric Acid Calcium Total Bilirubin Alkaline Phosphatase CK-MB (CK-2) CK-MB (CK-2) Rel Index Total Protein Albumin Urine WBC (Auto) 01/22/17 01/22/17 01/22/17 04:00 04:00 11:27 WBC 11.6 H RDW 18.7 H Plt Count 116 L Lymph % (Auto) 2.9 L [place] % (Auto) 11.1 H Eos % (Auto) Baso % (Auto) Lymph # 0.3 L [place] # 1.3 H Seg Neutrophils % 84.2 H Seg Neuts % (Manual) Lymphocytes % (Manual) Monocytes % (Manual) Eosinophils % (Manual) Seg Neutrophils # 9.8 H Lymphocytes # (Manual) Monocytes # (Manual) POC ABG pH POC ABG pCO2 POC ABG pO2 Sodium 135 L Potassium Chloride 94.6 L Carbon Dioxide BUN 43 H Creatinine 1.9 H Glucose 148 H POC Glucose 151 H Uric Acid Calcium Total Bilirubin 1.60 H Alkaline Phosphatase CK-MB (CK-2) CK-MB (CK-2) Rel Index Total Protein 5.6 L Albumin 2.8 L Urine WBC (Auto) 01/22/17 01/22/17 01/22/17 11:37 13:00 17:14 WBC RDW Plt Count Lymph % (Auto) [place] % (Auto) Eos % (Auto) Baso % (Auto) Lymph # [place] # Seg Neutrophils % Seg Neuts % (Manual) Lymphocytes % (Manual) Monocytes % (Manual) Eosinophils % (Manual) Seg Neutrophils # Lymphocytes # (Manual) Monocytes # (Manual) POC ABG pH POC ABG pCO2 45.2 H POC ABG pO2 Sodium Potassium Chloride Carbon Dioxide BUN Creatinine Glucose POC Glucose 178 H Uric Acid 12.0 H Calcium Total Bilirubin Alkaline Phosphatase CK-MB (CK-2) CK-MB (CK-2) Rel Index Total Protein Albumin Urine WBC (Auto) 01/22/17 01/23/17 01/23/17 23:33 04:10 04:10 WBC RDW 19.1 H Plt Count Lymph % (Auto) 3.3 L [place] % (Auto) 11.5 H Eos % (Auto) Baso % (Auto) Lymph # 0.3 L [place] # 1.2 H Seg Neutrophils % 83.9 H Seg Neuts % (Manual) Lymphocytes % (Manual) Monocytes % (Manual) Eosinophils % (Manual) Seg Neutrophils # 8.4 H Lymphocytes # (Manual) Monocytes # (Manual) POC ABG pH POC ABG pCO2 POC ABG pO2 Sodium 134 L Potassium Chloride 95.1 L Carbon Dioxide BUN 48 H Creatinine 2.0 H Glucose 197 H POC Glucose 202 H Uric Acid Calcium Total Bilirubin Alkaline Phosphatase CK-MB (CK-2) CK-MB (CK-2) Rel Index Total Protein Albumin Urine WBC (Auto) 01/23/17 01/23/17 01/23/17 05:19 12:16 16:51 WBC RDW Plt Count Lymph % (Auto) [place] % (Auto) Eos % (Auto) Baso % (Auto) Lymph # [place] # Seg Neutrophils % Seg Neuts % (Manual) Lymphocytes % (Manual) Monocytes % (Manual) Eosinophils % (Manual) Seg Neutrophils # Lymphocytes # (Manual) Monocytes # (Manual) POC ABG pH 7.317 L POC ABG pCO2 49.6 H POC ABG pO2 Sodium Potassium Chloride Carbon Dioxide BUN Creatinine Glucose POC Glucose 186 H 146 H Uric Acid Calcium Total Bilirubin Alkaline Phosphatase CK-MB (CK-2) CK-MB (CK-2) Rel Index Total Protein Albumin Urine WBC (Auto) 01/23/17 01/23/17 01/24/17 17:24 23:57 05:12 WBC RDW Plt Count Lymph % (Auto) [place] % (Auto) Eos % (Auto) Baso % (Auto) Lymph # [place] # Seg Neutrophils % Seg Neuts % (Manual) Lymphocytes % (Manual) Monocytes % (Manual) Eosinophils % (Manual) Seg Neutrophils # Lymphocytes # (Manual) Monocytes # (Manual) POC ABG pH POC ABG pCO2 POC ABG pO2 Sodium Potassium Chloride Carbon Dioxide BUN Creatinine Glucose POC Glucose 176 H 212 H 215 H Uric Acid Calcium Total Bilirubin Alkaline Phosphatase CK-MB (CK-2) CK-MB (CK-2) Rel Index Total Protein Albumin Urine WBC (Auto) 01/24/17 01/24/17 01/24/17 05:44 07:50 12:14 WBC RDW Plt Count Lymph % (Auto) [place] % (Auto) Eos % (Auto) Baso % (Auto) Lymph # [place] # Seg Neutrophils % Seg Neuts % (Manual) Lymphocytes % (Manual) Monocytes % (Manual) Eosinophils % (Manual) Seg Neutrophils # Lymphocytes # (Manual) Monocytes # (Manual) POC ABG pH POC ABG pCO2 POC ABG pO2 Sodium 136 L D Potassium 2.0 L* D Chloride 120.0 H 97.9 L Carbon Dioxide 15 L D BUN 34 H 54 H Creatinine 1.9 H D Glucose 138 H 205 H POC Glucose 210 H Uric Acid Calcium 4.8 L* D Total Bilirubin Alkaline Phosphatase 33 L CK-MB (CK-2) CK-MB (CK-2) Rel Index Total Protein 3.0 L D Albumin 1.4 L Urine WBC (Auto) 01/24/17 01/24/17 01/24/17 16:54 23:35 Unknown WBC RDW 18.6 H Plt Count 138 L Lymph % (Auto) [place] % (Auto) Eos % (Auto) Baso % (Auto) Lymph # [place] # Seg Neutrophils % Seg Neuts % (Manual) 71.0 H Lymphocytes % (Manual) 5.0 L Monocytes % (Manual) 18.0 H Eosinophils % (Manual) 5.0 H Seg Neutrophils # Lymphocytes # (Manual) 0.4 L Monocytes # (Manual) 1.3 H POC ABG pH POC ABG pCO2 POC ABG pO2 Sodium Potassium Chloride Carbon Dioxide BUN Creatinine Glucose POC Glucose 227 H 260 H Uric Acid Calcium Total Bilirubin Alkaline Phosphatase CK-MB (CK-2) CK-MB (CK-2) Rel Index Total Protein Albumin Urine WBC (Auto) 01/25/17 01/25/17 01/25/17 05:52 07:54 07:54 WBC RDW 18.9 H Plt Count Lymph % (Auto) [place] % (Auto) Eos % (Auto) Baso % (Auto) Lymph # [place] # Seg Neutrophils % Seg Neuts % (Manual) Lymphocytes % (Manual) Monocytes % (Manual) Eosinophils % (Manual) Seg Neutrophils # Lymphocytes # (Manual) Monocytes # (Manual) POC ABG pH POC ABG pCO2 POC ABG pO2 Sodium 135 L Potassium Chloride 97.0 L Carbon Dioxide BUN 55 H Creatinine 1.6 H Glucose 235 H POC Glucose 226 H Uric Acid Calcium Total Bilirubin Alkaline Phosphatase CK-MB (CK-2) CK-MB (CK-2) Rel Index Total Protein Albumin Urine WBC (Auto) 01/25/17 01/25/17 01/25/17 11:38 17:15 23:21 WBC RDW Plt Count Lymph % (Auto) [place] % (Auto) Eos % (Auto) Baso % (Auto) Lymph # [place] # Seg Neutrophils % Seg Neuts % (Manual) Lymphocytes % (Manual) Monocytes % (Manual) Eosinophils % (Manual) Seg Neutrophils # Lymphocytes # (Manual) Monocytes # (Manual) POC ABG pH POC ABG pCO2 POC ABG pO2 Sodium Potassium Chloride Carbon Dioxide BUN Creatinine Glucose POC Glucose 226 H 249 H 245 H Uric Acid Calcium Total Bilirubin Alkaline Phosphatase CK-MB (CK-2) CK-MB (CK-2) Rel Index Total Protein Albumin Urine WBC (Auto) 01/26/17 05:27 WBC RDW Plt Count Lymph % (Auto) [place] % (Auto) Eos % (Auto) Baso % (Auto) Lymph # [place] # Seg Neutrophils % Seg Neuts % (Manual) Lymphocytes % (Manual) Monocytes % (Manual) Eosinophils % (Manual) Seg Neutrophils # Lymphocytes # (Manual) Monocytes # (Manual) POC ABG pH POC ABG pCO2 POC ABG pO2 Sodium Potassium Chloride Carbon Dioxide BUN Creatinine Glucose POC Glucose 244 H Uric Acid Calcium Total Bilirubin Alkaline Phosphatase CK-MB (CK-2) CK-MB (CK-2) Rel Index Total Protein Albumin Urine WBC (Auto)
[2017-01-26] MEDS: BABY ASPIRIN PO SCH (10:17)
[2017-01-26] MEDS: PEPCID PO SCH ×2 (10:17→21:07)
[2017-01-26] MEDS: LEVEMIR SUB-Q SCH (10:17)
--- NOTE | 2017-01-26 10:57 | Progress Note ---
Assessment and Plan Assessment and plan: S/p PEA cardiorespiratory arrest 01/19. s/p IV amio 150mg bolus x 1. Cardiology following. Cardiac isoenzymes negative for AMI s/p code; ECG with no ischemic changes. Patient previously on Dobutamine gtt which has now been discontinued. 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 Cont strict I/O. The diuretics held in setting of CIERRA. Consider resuming IV lasix if okay per nephrology. Cont lopressor. ACEI/ARB held in setting of CIERRA. Aspiration PNA. Continue IV antibiotics. ID following. Sepsis. Etiology secondary to pneumonia and UTI. Urine culture revealed enterococcus. Acute hypoxic respiratory failure. Etiology secondary to above. Acute renal failure. Etiology secondary to CIERRA and vasomotor nephropathy. Nephrology following. Avoid nephrotoxic agents. Maintain MAP greater than 65. Hyponatremia. Follow-up BMP Accelerated junction arrhythmia / 1st degree AV block. Cardiology following. Continue Lopressor. Cardiomyopathy. 01/15/2017 2D echocardiogram reported as global left ventricular systolic function is severely decreased, estimated EF is 10-15%, left atrium mildly dilated, right ventricle is mild to moderately dilated, right ventricular global systolic function is moderately reduced, right atrium is mild to moderate dilated, trace AR, no , mitral annular calcification, mild MR, no ms, moderate TR, right ventricular systolic function is calculated at 48mmhg, there is small pericardial effusion which does not appear to be hemodynamically significant NSVT. Continue medications as above per cardiology. Acute toxic metabolic encephalopathy. Resolved. Enterococcus UTI. Continue IV antibiotics. Diabetes type II, uncontrolled. Continue sliding scale and Accu-Cheks. Hypertension. Continue antihypertensive medications. Hyperlipidemia History of Breast CA Obesity History Interval history: No new issues overnight. Patient currently on BiPAP. Hospitalist Physical - Constitutional Vitals: Temp Pulse Resp BP Pulse Ox 98.8 F 134 H 24 116/90 98 01/26/17 08:00 01/26/17 09:54 01/26/17 09:54 01/26/17 09:54 01/26/17 09:54 General appearance: Present: no acute distress, obese - EENT Eyes: Present: PERRL, EOM intact ENT: hearing intact, clear oral mucosa, dentition normal - Neck Neck: Present: supple, normal ROM - Respiratory Respiratory effort: normal Respiratory: bilateral: CTA - Cardiovascular Rhythm: regular Heart Sounds: Present: S1 & S2. Absent: gallop, rub - Extremities Extremities: no ischemia, No edema, Full ROM - Abdominal General gastrointestinal: soft, non-tender, non-distended, normal bowel sounds - Integumentary Integumentary: Present: clear, warm, dry - Neurologic Neurologic: CNII-XII intact, moves all extremities Results - Labs CBC & Chem 7: 01/25/17 07:54 01/25/17 07:54 Labs: Laboratory Last Values WBC 7.9 K/mm3 (4.5-11.0) 01/25/17 07:54 RBC 4.71 M/mm3 (3.65-5.03) 01/25/17 07:54 Hgb 13.5 gm/dl (10.1-14.3) 01/25/17 07:54 Hct 41.6 % (30.3-42.9) 01/25/17 07:54 MCV 89 fl (79-97) 01/25/17 07:54 MCH 29 pg (28-32) 01/25/17 07:54 MCHC 33 % (30-34) 01/25/17 07:54 RDW 18.9 % (13.2-15.2) H 01/25/17 07:54 Plt Count 153 K/mm3 (140-440) 01/25/17 07:54 Lymph % (Auto) 3.3 % (13.4-35.0) L 01/23/17 04:10 [place] % (Auto) [employer] 01/24/17 Unknown Eos % (Auto) 0.8 % (0.0-4.3) 01/23/17 04:10 Baso % (Auto) 0.5 % (0.0-1.8) 01/23/17 04:10 Lymph # 0.3 K/mm3 (1.2-5.4) L 01/23/17 04:10 [place] # 1.2 K/mm3 (0.0-0.8) H 01/23/17 04:10 Eos # 0.1 K/mm3 (0.0-0.4) 01/23/17 04:10 Baso # 0.0 K/mm3 (0.0-0.1) 01/23/17 04:10 Add Manual Diff Complete 01/24/17 Unknown Total Counted 100 01/24/17 Unknown Seg Neutrophils % 83.9 % (40.0-70.0) H 01/23/17 04:10 Seg Neuts % (Manual) 71.0 % (40.0-70.0) H 01/24/17 Unknown Band Neutrophils % 0 % 01/24/17 Unknown Lymphocytes % (Manual) 5.0 % (13.4-35.0) L 01/24/17 Unknown Reactive Lymphs % (Man) 0 % 01/24/17 Unknown Monocytes % (Manual) 18.0 % (0.0-7.3) H 01/24/17 Unknown Eosinophils % (Manual) 5.0 % (0.0-4.3) H 01/24/17 Unknown Basophils % (Manual) 1.0 % (0.0-1.8) 01/24/17 Unknown Metamyelocytes % 0 % 01/24/17 Unknown Myelocytes % 0 % 01/24/17 Unknown Promyelocytes % 0 % 01/24/17 Unknown Blast Cells % 0 % 01/24/17 Unknown Nucleated RBC % Not Reportable 01/24/17 Unknown Seg Neutrophils # 8.4 K/mm3 (1.8-7.7) H 01/23/17 04:10 Seg Neutrophils # Man 5.1 K/mm3 (1.8-7.7) 01/24/17 Unknown Band Neutrophils # 0.0 K/mm3 01/24/17 Unknown Lymphocytes # (Manual) 0.4 K/mm3 (1.2-5.4) L 01/24/17 Unknown Abs React Lymphs (Man) 0.0 K/mm3 01/24/17 Unknown Monocytes # (Manual) 1.3 K/mm3 (0.0-0.8) H 01/24/17 Unknown Eosinophils # (Manual) 0.4 K/mm3 (0.0-0.4) 01/24/17 Unknown Basophils # (Manual) 0.1 K/mm3 (0.0-0.1) 01/24/17 Unknown Metamyelocytes # 0.0 K/mm3 01/24/17 Unknown Myelocytes # 0.0 K/mm3 01/24/17 Unknown Promyelocytes # 0.0 K/mm3 01/24/17 Unknown Blast Cells # 0.0 K/mm3 01/24/17 Unknown WBC Morphology Not Reportable 01/24/17 Unknown Hypersegmented Neuts Not Reportable 01/24/17 Unknown Hyposegmented Neuts Not Reportable 01/24/17 Unknown Hypogranular Neuts Not Reportable 01/24/17 Unknown Smudge Cells Not Reportable 01/24/17 Unknown Toxic Granulation Not Reportable 01/24/17 Unknown Toxic Vacuolation Not Reportable 01/24/17 Unknown Dohle Bodies Not Reportable 01/24/17 Unknown Pelger-Huet Anomaly Not Reportable 01/24/17 Unknown Yusuf Rods Not Reportable 01/24/17 Unknown Platelet Estimate Consistent w auto 01/24/17 Unknown Clumped Platelets Not Reportable 01/24/17 Unknown Plt Clumps, EDTA Not Reportable 01/24/17 Unknown Large Platelets Not Reportable 01/24/17 Unknown Giant Platelets Not Reportable 01/24/17 Unknown Platelet Satelliting Not Reportable 01/24/17 Unknown Plt Morphology Comment Not Reportable 01/24/17 Unknown RBC Morphology Normal 01/24/17 Unknown Dimorphic RBCs Not Reportable 01/24/17 Unknown Polychromasia Not Reportable 01/24/17 Unknown Hypochromasia Not Reportable 01/24/17 Unknown Poikilocytosis Not Reportable 01/24/17 Unknown Anisocytosis Not Reportable 01/24/17 Unknown Microcytosis Not Reportable 01/24/17 Unknown Macrocytosis Not Reportable 01/24/17 Unknown Spherocytes Not Reportable 01/24/17 Unknown Pappenheimer Bodies Not Reportable 01/24/17 Unknown Sickle Cells Not Reportable 01/24/17 Unknown Target Cells Not Reportable 01/24/17 Unknown Tear Drop Cells Not Reportable 01/24/17 Unknown Ovalocytes Not Reportable 01/24/17 Unknown Helmet Cells Not Reportable 01/24/17 Unknown [place] Bodies Not Reportable 01/24/17 Unknown [place]ck Rings Not Reportable 01/24/17 Unknown [place] Cells Not Reportable 01/24/17 Unknown Bite Cells Not Reportable 01/24/17 Unknown Crenated Cell Not Reportable 01/24/17 Unknown Elliptocytes Not Reportable 01/24/17 Unknown Acanthocytes (Spur) Not Reportable 01/24/17 Unknown Rouleaux Not Reportable 01/24/17 Unknown Hemoglobin C Crystals Not Reportable 01/24/17 Unknown Schistocytes Not Reportable 01/24/17 Unknown Malaria parasites Not Reportable 01/24/17 Unknown Trevor Bodies Not Reportable 01/24/17 Unknown Hem Pathologist Commnt No 01/24/17 Unknown POC ABG pH 7.317 (7.35-7.45) L 01/23/17 16:51 POC ABG pCO2 49.6 (35-45) H 01/23/17 16:51 POC ABG pO2 93 (80-105) 01/23/17 16:51 POC ABG HCO3 25.4 01/23/17 16:51 POC ABG Total CO2 27 01/23/17 16:51 POC ABG O2 Sat 96 01/23/17 16:51 POC ABG Base Excess -1 01/23/17 16:51 FiO2 35 % 01/23/17 16:51 Sodium 135 mmol/L (137-145) L 01/25/17 07:54 Potassium 4.2 mmol/L (3.6-5.0) 01/25/17 07:54 Chloride 97.0 mmol/L (98-107) L 01/25/17 07:54 Carbon Dioxide 26 mmol/L (22-30) 01/25/17 07:54 Anion Gap 16 mmol/L 01/25/17 07:54 BUN 55 mg/dL (7-17) H 01/25/17 07:54 Creatinine 1.6 mg/dL (0.7-1.2) H 01/25/17 07:54 Estimated GFR 38 ml/min 01/25/17 07:54 BUN/Creatinine Ratio 34.37 % 01/25/17 07:54 Glucose 235 mg/dL (65-100) H 01/25/17 07:54 POC Glucose 244 (70-105) H 01/26/17 05:27 Osmolality 298 Mosm/kg 01/22/17 13:00 Uric Acid 12.0 mg/dL (3.5-7.6) H 01/22/17 13:00 Calcium 9.5 mg/dL (8.4-10.2) 01/25/17 07:54 Magnesium 2.00 mg/dL (1.7-2.3) 01/22/17 04:00 Total Bilirubin 1.60 mg/dL (0.1-1.2) H 01/22/17 04:00 AST 25 units/L (5-40) 01/22/17 04:00 ALT 12 units/L (7-56) 01/22/17 04:00 Alkaline Phosphatase 63 units/L (35-129) 01/22/17 04:00 Total Creatine Kinase 98 units/L (30-135) 01/19/17 13:02 CK-MB (CK-2) 4.1 ng/mL (0.0-4.0) H 01/19/17 13:02 CK-MB (CK-2) Rel Index 4.1 (0-4) H 01/19/17 13:02 Troponin T 0.022 ng/mL (0.00-0.029) 01/19/17 13:02 NT-Pro-B Natriuret Pep 8400 pg/mL (0-900) H 01/15/17 09:03 Total Protein 5.6 g/dL (6.3-8.2) L 01/22/17 04:00 Albumin 2.8 g/dL (3.9-5) L 01/22/17 04:00 Albumin/Globulin Ratio 1.0 % 01/22/17 04:00 Urine Color Yellow (Yellow) 01/20/17 09:34 Urine Turbidity Clear (Clear) 01/20/17 09:34 Urine pH 5.0 (5.0-7.0) 01/20/17 09:34 Ur Specific [place] 1.006 (1.003-1.030) 01/20/17 09:34 Urine Protein <15 mg/dl mg/dL (Negative) 01/20/17 09:34 Urine Glucose (UA) Neg mg/dL (Negative) 01/20/17 09:34 Urine Ketones Neg mg/dL (Negative) 01/20/17 09:34 Urine Blood Mod (Negative) 01/20/17 09:34 Urine Nitrite Neg (Negative) 01/20/17 09:34 Urine Bilirubin Neg (Negative) 01/20/17 09:34 Urine Urobilinogen < 2.0 mg/dL (<2.0) 01/20/17 09:34 Ur Leukocyte Esterase Mod (Negative) 01/20/17 09:34 Urine WBC (Auto) 15.0 /HPF (0.0-6.0) H 01/20/17 09:34 Urine RBC (Auto) 12.0 /HPF (0.0-6.0) 01/20/17 09:34 U Epithel Cells (Auto) 2.0 /HPF (0-13.0) 01/20/17 09:34 Urine Bacteria (Auto) 1+ /HPF (Negative) 01/20/17 09:34 Amorphous Crystals Few 01/20/17 09:34 Urine Yeast (Budding) 1+ /HPF 01/20/17 09:34 Vancomycin Trough 16.5 ug/mL (5.0-20.0) 01/22/17 13:00
[2017-01-26] MEDS ORDERED: LEVEMIR SUB-Q ONE (11:00)
--- NOTE | 2017-01-26 11:55 | Progress Note ---
Assessment and Plan S/p PEA cardiorespiratory arrest 01/19 Extubated Ade negative for AMI s/p code; ECG with no ischemic changes Dobutamine gtt d/c'd s/p IV amio 150mg bolus x 1. 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 consider resuming IV lasix if okay per nephrology. cont lopressor. ACEI/ARB held in setting of CIERRA. Aspiration PNA ID following. CIERRA / Hyperkalemia nephrology following Hyponatremia monitor Accelerated junction arrhythmia / 1st degree AV block Per EP, QRS vector same as office EKG unlikely VT Also with intermittent SR with prolonged SD v. IVCD v. idioventricular rhythm noted on tele. continue lopressor Cardiomyopathy EF 10 - 15% NSVT Diabetes Hypertension Hyperlipidemia History of Breast CA Obesity Currently stable cardiac status. Consider resuming IV lasix if okay per nephrology as renal indices appear to be improving. Overall poor prognosis. The patient has been seen in conjunction with Dr. Del Castillo who agrees with the assessment and plan of care. Subjective Date of service: 01/26/17 Principal diagnosis: CHF exacerbation Interval history: Pt resting in bed, on BiPAP. States she is feeling a little better. Remains apparent 1st degree AV block with IVCD on tele. Objective Last Vital Signs Temp 98.8 F 01/26/17 08:00 Pulse 134 H 01/26/17 09:54 Resp 24 01/26/17 09:54 BP 116/90 01/26/17 09:54 Pulse Ox 98 01/26/17 09:54 - Physical Examination General: Appears Well HEENT: Positive: PERRL, EOMI Neck: Positive: neck supple, trachea midline. Negative: JVD/HJR Cardiac: Positive: S1/S2, Tachycardia Lungs: Positive: Decreased Breath Sounds, Oxygen Neuro: Positive: Grossly Intact Abdomen: Positive: Unremarkable, Soft, Active Bowel Sounds Skin: Negative: Rash, Suspicious Lesions Extremities: Present: edema (trace BLE ), warm, Other (chronic venous stasis changes) - Imaging and Cardiology EKG: report reviewed (Tachycardia of 128/min Junctional rhythm) Stress echo: report reviewed (Cardiac PET 11/11: very small mild anterior, anteroapical mild reversible defect. EF stress 58%) Echo: report reviewed (ECHO 11/16: TDS, EF cannot be determined due to poor image quality, ) Cardiac cath: report reviewed ([facility] 06/07: LM: patent, LCX: diffuse disease, LAD: diffuse disease, RCA: diffuse disease, mid 40%)
[2017-01-26] MEDS: VANCOMYCIN 2,000 MG in NACL 0.9% 500 ML 500 ML IV SCH (13:00)
[2017-01-26] MEDS: PERCOCET 5/325 PO PRN (18:23)
[2017-01-26] MEDS: ZOCOR PO SCH (21:07)
[2017-01-26] MEDS: TYLENOL PO PRN (21:08)
[2017-01-27] MEDS: NOVOLOG SUB-Q SCH ×4 (00:55→18:37)
[2017-01-27 05:23] LABS: Basophils % (Auto) 0.9 % (0.0-1.8); Eosinophils % (Auto) 4.4 % (0.0-4.3); Hematocrit 41.3 % (30.3-42.9); Hemoglobin 13.6 gm/dl (10.1-14.3); Mean Corpuscular HGB Conc 33 % (30-34); Mean Corpuscular Hemoglobin 29 pg (28-32); Mean Corpuscular Volume 88 fl (79-97); Platelet Count 141 K/mm3 (140-440); Red Blood Count 4.71 M/mm3 (3.65-5.03); Red Cell Distribution Width 18.6 % (13.2-15.2); White Blood Count 8.3 K/mm3 (4.5-11.0)
[2017-01-27 05:51] LABS: Calcium 9.8 mg/dL (8.4-10.2); Chloride 98.2 mmol/L (98-107); Potassium 4.1 mmol/L (3.6-5.0)
[2017-01-27] MEDS: HEPARIN SUB-Q SCH ×3 (06:30→22:58)
[2017-01-27] MEDS: BABY ASPIRIN PO SCH (09:25)
[2017-01-27] MEDS: PEPCID PO SCH ×2 (09:25→22:58)
[2017-01-27] MEDS: LOPRESSOR PO SCH ×2 (09:25→13:40)
--- NOTE | 2017-01-27 09:57 | Progress Note ---
Subjective Principal diagnosis: CHF exacerbation Interval history: Patient was seen today for follow-up on multiple renal related issues Creatinine currently 1.2 normalized She denies any chest pain Events of 24 hours noted Vitals labs intake output and medications were reviewed Social history: Reviewed Family history: Reviewed Allergy: Reviewed Physical examination Vitals: Reviewed HEENT: Oral mucosa moist Neck: Supple no JVD Chest: Bilateral clear to auscultation no crackles rales or wheezes Heart: Regular rate and rhythm S1 and S2 heard Abdomen: Soft nontender no voluntary guarding rigidity rebound Extremity: Minimal edema dry skin Dermatology; dry skin no edema Assessment and plan Acute renal failure: Patient mostly appear to be prerenal currently improving well /may have had low-grade acute tubular necrosis, react and is completely normalize Avoid hypotension hypoxemia Monitor blood pressure closely Follow-up on an as-needed basis We'll continue to follow and make recommendation from renal standpoint Objective - Vital Signs Vital signs: Vital Signs - 12hr 01/26/17 01/26/17 01/26/17 22:00 22:08 23:00 Temperature Pulse Rate 103 H 104 H Pulse Rate [ From Monitor] Respiratory 30 H 20 18 Rate Blood Pressure 119/95 123/74 O2 Sat by Pulse 99 97 Oximetry 01/26/17 01/27/17 01/27/17 23:57 00:00 01:00 Temperature 98.0 F Pulse Rate 103 H 103 H Pulse Rate [ 103 H From Monitor] Respiratory 21 20 Rate Blood Pressure 92/62 111/76 O2 Sat by Pulse 93 99 Oximetry 01/27/17 01/27/17 01/27/17 02:00 03:00 03:23 Temperature 98.1 F Pulse Rate 101 H 107 H Pulse Rate [ From Monitor] Respiratory 19 23 Rate Blood Pressure 116/86 112/82 O2 Sat by Pulse 98 98 Oximetry 01/27/17 01/27/17 01/27/17 04:00 05:00 06:00 Temperature Pulse Rate 108 H 114 H 145 H Pulse Rate [ 108 H From Monitor] Respiratory 26 H 21 31 H Rate Blood Pressure 127/80 119/92 118/81 O2 Sat by Pulse 96 97 93 Oximetry 01/27/17 01/27/17 01/27/17 07:00 08:00 09:01 Temperature 97.6 F Pulse Rate 98 H 108 H 112 H Pulse Rate [ 108 H From Monitor] Respiratory 21 17 23 Rate Blood Pressure 109/73 105/72 108/79 O2 Sat by Pulse 98 98 100 Oximetry 01/27/17 09:25 Temperature Pulse Rate 107 H Pulse Rate [ From Monitor] Respiratory Rate Blood Pressure 118/85 O2 Sat by Pulse Oximetry - Lab 01/27/17 04:45 01/27/17 04:45 Most recent lab results Calcium 9.8 mg/dL (8.4-10.2) 01/27/17 04:45 Magnesium 2.00 mg/dL (1.7-2.3) 01/22/17 04:00
[2017-01-27] MEDS ORDERED: LEVEMIR SUB-Q SCH (10:00)
[2017-01-27] MEDS ORDERED: LEVEMIR SUB-Q ONE (10:00)
--- NOTE | 2017-01-27 12:07 | Progress Note ---
Assessment and Plan Assessment and plan: S/p PEA cardiorespiratory arrest 01/19. s/p IV amio 150mg bolus x 1. Cardiology following. Cardiac isoenzymes negative for AMI s/p code; ECG with no ischemic changes. Patient previously on Dobutamine gtt which has now been discontinued. 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 Cont strict I/O. The diuretics held in setting of CIERRA. Consider resuming IV lasix if okay per nephrology. Cont lopressor. ACEI/ARB held in setting of CIERRA. Aspiration PNA. Continue IV antibiotics. ID following. Consider discontinuing antibiotics of vancomycin if okay with pulmonary. Sepsis. Etiology secondary to pneumonia and UTI. Urine culture revealed enterococcus. Acute hypoxic respiratory failure. Etiology secondary to above. Patient currently on high flow O2. Continue BiPAP as clinically indicated. Pulmonary following. Acute renal failure. Etiology secondary to CIERRA and vasomotor nephropathy. Nephrology following. Avoid nephrotoxic agents. Maintain MAP greater than 65. Hyponatremia. Follow-up BMP Accelerated junction arrhythmia / 1st degree AV block. Cardiology following. Continue Lopressor. Cardiomyopathy. 01/15/2017 2D echocardiogram reported as global left ventricular systolic function is severely decreased, estimated EF is 10-15%, left atrium mildly dilated, right ventricle is mild to moderately dilated, right ventricular global systolic function is moderately reduced, right atrium is mild to moderate dilated, trace AR, no , mitral annular calcification, mild MR, no ms, moderate TR, right ventricular systolic function is calculated at 48mmhg, there is small pericardial effusion which does not appear to be hemodynamically significant NSVT. Continue medications as above per cardiology. Acute toxic metabolic encephalopathy. Resolved. Enterococcus UTI. Continue IV antibiotics. Diabetes type II, uncontrolled. Continue sliding scale and Accu-Cheks. Hypertension. Continue antihypertensive medications. Hyperlipidemia History of Breast CA Obesity History Interval history: No new issues overnight. Patient currently on BiPAP. Hospitalist Physical - Constitutional Vitals: Temp Pulse Resp BP Pulse Ox 97.6 F 128 H 31 H 107/77 96 01/27/17 08:00 01/27/17 11:00 01/27/17 11:00 01/27/17 11:00 01/27/17 11:00 General appearance: Present: no acute distress, obese - EENT Eyes: Present: PERRL, EOM intact ENT: hearing intact, clear oral mucosa, dentition normal - Neck Neck: Present: supple, normal ROM - Respiratory Respiratory effort: normal Respiratory: bilateral: CTA - Cardiovascular Rhythm: regular Heart Sounds: Present: S1 & S2. Absent: gallop, rub - Extremities Extremities: no ischemia, No edema, Full ROM - Abdominal General gastrointestinal: soft, non-tender, non-distended, normal bowel sounds - Integumentary Integumentary: Present: clear, warm, dry - Neurologic Neurologic: CNII-XII intact, moves all extremities Results - Labs CBC & Chem 7: 01/27/17 04:45 01/27/17 04:45 Labs: Laboratory Last Values WBC 8.3 K/mm3 (4.5-11.0) 01/27/17 04:45 RBC 4.71 M/mm3 (3.65-5.03) 01/27/17 04:45 Hgb 13.6 gm/dl (10.1-14.3) 01/27/17 04:45 Hct 41.3 % (30.3-42.9) 01/27/17 04:45 MCV 88 fl (79-97) 01/27/17 04:45 MCH 29 pg (28-32) 01/27/17 04:45 MCHC 33 % (30-34) 01/27/17 04:45 RDW 18.6 % (13.2-15.2) H 01/27/17 04:45 Plt Count 141 K/mm3 (140-440) 01/27/17 04:45 Lymph % (Auto) 4.6 % (13.4-35.0) L 01/27/17 04:45 [place] % (Auto) 13.6 % (0.0-7.3) H 01/27/17 04:45 Eos % (Auto) 4.4 % (0.0-4.3) H 01/27/17 04:45 Baso % (Auto) 0.9 % (0.0-1.8) 01/27/17 04:45 Lymph # 0.4 K/mm3 (1.2-5.4) L 01/27/17 04:45 [place] # 1.1 K/mm3 (0.0-0.8) H 01/27/17 04:45 Eos # 0.4 K/mm3 (0.0-0.4) 01/27/17 04:45 Baso # 0.1 K/mm3 (0.0-0.1) 01/27/17 04:45 Add Manual Diff Complete 01/24/17 Unknown Total Counted 100 01/24/17 Unknown Seg Neutrophils % 76.5 % (40.0-70.0) H 01/27/17 04:45 Seg Neuts % (Manual) 71.0 % (40.0-70.0) H 01/24/17 Unknown Band Neutrophils % 0 % 01/24/17 Unknown Lymphocytes % (Manual) 5.0 % (13.4-35.0) L 01/24/17 Unknown Reactive Lymphs % (Man) 0 % 01/24/17 Unknown Monocytes % (Manual) 18.0 % (0.0-7.3) H 01/24/17 Unknown Eosinophils % (Manual) 5.0 % (0.0-4.3) H 01/24/17 Unknown Basophils % (Manual) 1.0 % (0.0-1.8) 01/24/17 Unknown Metamyelocytes % 0 % 01/24/17 Unknown Myelocytes % 0 % 01/24/17 Unknown Promyelocytes % 0 % 01/24/17 Unknown Blast Cells % 0 % 01/24/17 Unknown Nucleated RBC % Not Reportable 01/24/17 Unknown Seg Neutrophils # 6.3 K/mm3 (1.8-7.7) 01/27/17 04:45 Seg Neutrophils # Man 5.1 K/mm3 (1.8-7.7) 01/24/17 Unknown Band Neutrophils # 0.0 K/mm3 01/24/17 Unknown Lymphocytes # (Manual) 0.4 K/mm3 (1.2-5.4) L 01/24/17 Unknown Abs React Lymphs (Man) 0.0 K/mm3 01/24/17 Unknown Monocytes # (Manual) 1.3 K/mm3 (0.0-0.8) H 01/24/17 Unknown Eosinophils # (Manual) 0.4 K/mm3 (0.0-0.4) 01/24/17 Unknown Basophils # (Manual) 0.1 K/mm3 (0.0-0.1) 01/24/17 Unknown Metamyelocytes # 0.0 K/mm3 01/24/17 Unknown Myelocytes # 0.0 K/mm3 01/24/17 Unknown Promyelocytes # 0.0 K/mm3 01/24/17 Unknown Blast Cells # 0.0 K/mm3 01/24/17 Unknown WBC Morphology Not Reportable 01/24/17 Unknown Hypersegmented Neuts Not Reportable 01/24/17 Unknown Hyposegmented Neuts Not Reportable 01/24/17 Unknown Hypogranular Neuts Not Reportable 01/24/17 Unknown Smudge Cells Not Reportable 01/24/17 Unknown Toxic Granulation Not Reportable 01/24/17 Unknown Toxic Vacuolation Not Reportable 01/24/17 Unknown Dohle Bodies Not Reportable 01/24/17 Unknown Pelger-Huet Anomaly Not Reportable 01/24/17 Unknown Yusuf Rods Not Reportable 01/24/17 Unknown Platelet Estimate Consistent w auto 01/24/17 Unknown Clumped Platelets Not Reportable 01/24/17 Unknown Plt Clumps, EDTA Not Reportable 01/24/17 Unknown Large Platelets Not Reportable 01/24/17 Unknown Giant Platelets Not Reportable 01/24/17 Unknown Platelet Satelliting Not Reportable 01/24/17 Unknown Plt Morphology Comment Not Reportable 01/24/17 Unknown RBC Morphology Normal 01/24/17 Unknown Dimorphic RBCs Not Reportable 01/24/17 Unknown Polychromasia Not Reportable 01/24/17 Unknown Hypochromasia Not Reportable 01/24/17 Unknown Poikilocytosis Not Reportable 01/24/17 Unknown Anisocytosis Not Reportable 01/24/17 Unknown Microcytosis Not Reportable 01/24/17 Unknown Macrocytosis Not Reportable 01/24/17 Unknown Spherocytes Not Reportable 01/24/17 Unknown Pappenheimer Bodies Not Reportable 01/24/17 Unknown Sickle Cells Not Reportable 01/24/17 Unknown Target Cells Not Reportable 01/24/17 Unknown Tear Drop Cells Not Reportable 01/24/17 Unknown Ovalocytes Not Reportable 01/24/17 Unknown Helmet Cells Not Reportable 01/24/17 Unknown [place] Bodies Not Reportable 01/24/17 Unknown [place] Rings Not Reportable 01/24/17 Unknown Wally Cells Not Reportable 01/24/17 Unknown Bite Cells Not Reportable 01/24/17 Unknown Crenated Cell Not Reportable 01/24/17 Unknown Elliptocytes Not Reportable 01/24/17 Unknown Acanthocytes (Spur) Not Reportable 01/24/17 Unknown Rouleaux Not Reportable 01/24/17 Unknown Hemoglobin C Crystals Not Reportable 01/24/17 Unknown Schistocytes Not Reportable 01/24/17 Unknown Malaria parasites Not Reportable 01/24/17 Unknown Trevor Bodies Not Reportable 01/24/17 Unknown Hem Pathologist Commnt No 01/24/17 Unknown POC ABG pH 7.317 (7.35-7.45) L 01/23/17 16:51 POC ABG pCO2 49.6 (35-45) H 01/23/17 16:51 POC ABG pO2 93 (80-105) 01/23/17 16:51 POC ABG HCO3 25.4 01/23/17 16:51 POC ABG Total CO2 27 01/23/17 16:51 POC ABG O2 Sat 96 01/23/17 16:51 POC ABG Base Excess -1 01/23/17 16:51 FiO2 35 % 01/23/17 16:51 Sodium 137 mmol/L (137-145) 01/27/17 04:45 Potassium 4.1 mmol/L (3.6-5.0) 01/27/17 04:45 Chloride 98.2 mmol/L (98-107) 01/27/17 04:45 Carbon Dioxide 26 mmol/L (22-30) 01/27/17 04:45 Anion Gap 17 mmol/L 01/27/17 04:45 BUN 54 mg/dL (7-17) H 01/27/17 04:45 Creatinine 1.2 mg/dL (0.7-1.2) 01/27/17 04:45 Estimated GFR 53 ml/min 01/27/17 04:45 BUN/Creatinine Ratio 45.00 % 01/27/17 04:45 Glucose 202 mg/dL (65-100) H 01/27/17 04:45 POC Glucose 202 (70-105) H 01/27/17 05:36 Osmolality 298 Mosm/kg 01/22/17 13:00 Uric Acid 12.0 mg/dL (3.5-7.6) H 01/22/17 13:00 Calcium 9.8 mg/dL (8.4-10.2) 01/27/17 04:45 Magnesium 2.00 mg/dL (1.7-2.3) 01/22/17 04:00 Total Bilirubin 1.60 mg/dL (0.1-1.2) H 01/22/17 04:00 AST 25 units/L (5-40) 01/22/17 04:00 ALT 12 units/L (7-56) 01/22/17 04:00 Alkaline Phosphatase 63 units/L (35-129) 01/22/17 04:00 Total Creatine Kinase 98 units/L (30-135) 01/19/17 13:02 CK-MB (CK-2) 4.1 ng/mL (0.0-4.0) H 01/19/17 13:02 CK-MB (CK-2) Rel Index 4.1 (0-4) H 01/19/17 13:02 Troponin T 0.022 ng/mL (0.00-0.029) 01/19/17 13:02 NT-Pro-B Natriuret Pep 8400 pg/mL (0-900) H 01/15/17 09:03 Total Protein 5.6 g/dL (6.3-8.2) L 01/22/17 04:00 Albumin 2.8 g/dL (3.9-5) L 01/22/17 04:00 Albumin/Globulin Ratio 1.0 % 01/22/17 04:00 Urine Color Yellow (Yellow) 01/20/17 09:34 Urine Turbidity Clear (Clear) 01/20/17 09:34 Urine pH 5.0 (5.0-7.0) 01/20/17 09:34 Ur Specific [place] 1.006 (1.003-1.030) 01/20/17 09:34 Urine Protein <15 mg/dl mg/dL (Negative) 01/20/17 09:34 Urine Glucose (UA) Neg mg/dL (Negative) 01/20/17 09:34 Urine Ketones Neg mg/dL (Negative) 01/20/17 09:34 Urine Blood Mod (Negative) 01/20/17 09:34 Urine Nitrite Neg (Negative) 01/20/17 09:34 Urine Bilirubin Neg (Negative) 01/20/17 09:34 Urine Urobilinogen < 2.0 mg/dL (<2.0) 01/20/17 09:34 Ur Leukocyte Esterase Mod (Negative) 01/20/17 09:34 Urine WBC (Auto) 15.0 /HPF (0.0-6.0) H 01/20/17 09:34 Urine RBC (Auto) 12.0 /HPF (0.0-6.0) 01/20/17 09:34 U Epithel Cells (Auto) 2.0 /HPF (0-13.0) 01/20/17 09:34 Urine Bacteria (Auto) 1+ /HPF (Negative) 01/20/17 09:34 Amorphous Crystals Few 01/20/17 09:34 Urine Yeast (Budding) 1+ /HPF 01/20/17 09:34 Vancomycin Trough 16.5 ug/mL (5.0-20.0) 01/22/17 13:00
--- NOTE | 2017-01-27 12:12 | Progress Note ---
Assessment and Plan S/p PEA cardiorespiratory arrest 01/19 Extubated Ade negative for AMI s/p code; ECG with no ischemic changes Dobutamine gtt d/c'd s/p IV amio 150mg bolus x 1. 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 consider resuming IV lasix if okay per nephrology. cont lopressor. ACEI/ARB held in setting of CIERRA. Initiate milrinone at lowest standard dosage. Do not titrate. Aspiration PNA ID following. CIERRA / Hyperkalemia nephrology following Hyponatremia monitor Accelerated junction arrhythmia / 1st degree AV block Per EP, QRS vector same as office EKG unlikely VT Also with intermittent SR with prolonged OH v. IVCD v. idioventricular rhythm noted on tele. continue lopressor Cardiomyopathy EF 10 - 15% NSVT Diabetes Hypertension Hyperlipidemia History of Breast CA Obesity Initiate milrinone gtt at lowest standard dosage and do not titrate. Cont close observation and telemetry. Consider resuming IV lasix if okay per nephrology as renal indices appear to be improving. Overall poor prognosis. The patient has been seen in conjunction with Dr. Del Castillo who agrees with the assessment and plan of care. Subjective Date of service: 01/27/17 Principal diagnosis: CHF exacerbation Interval history: Pt resting in bed, on BiPAP. Remains apparent 1st degree AV block with IVCD on tele. Objective Last Vital Signs Temp 97.6 F 01/27/17 08:00 Pulse 128 H 01/27/17 11:00 Resp 31 H 01/27/17 11:00 BP 107/77 01/27/17 11:00 Pulse Ox 96 01/27/17 11:00 - Physical Examination General: Appears Well HEENT: Positive: PERRL, EOMI Neck: Positive: neck supple, trachea midline. Negative: JVD/HJR Cardiac: Positive: S1/S2, Tachycardia Lungs: Positive: Decreased Breath Sounds, Oxygen Neuro: Positive: Grossly Intact Abdomen: Positive: Unremarkable, Soft, Active Bowel Sounds Skin: Negative: Rash, Suspicious Lesions Extremities: Present: edema (trace BLE ), warm, Other (chronic venous stasis changes) - Labs and Meds CBC 01/27/17 Range/Units 04:45 WBC 8.3 (4.5-11.0) K/mm3 RBC 4.71 (3.65-5.03) M/mm3 Hgb 13.6 (10.1-14.3) gm/dl Hct 41.3 (30.3-42.9) % Plt Count 141 (140-440) K/mm3 Lymph # 0.4 L (1.2-5.4) K/mm3 [place] # 1.1 H (0.0-0.8) K/mm3 Eos # 0.4 (0.0-0.4) K/mm3 Baso # 0.1 (0.0-0.1) K/mm3 Comprehensive Metabolic Panel 01/27/17 Range/Units 04:45 Sodium 137 (137-145) mmol/L Potassium 4.1 (3.6-5.0) mmol/L Chloride 98.2 (98-107) mmol/L Carbon Dioxide 26 (22-30) mmol/L BUN 54 H (7-17) mg/dL Creatinine 1.2 (0.7-1.2) mg/dL Glucose 202 H (65-100) mg/dL Calcium 9.8 (8.4-10.2) mg/dL - Imaging and Cardiology EKG: report reviewed (Tachycardia of 128/min Junctional rhythm) Stress echo: report reviewed (Cardiac PET 11/11: very small mild anterior, anteroapical mild reversible defect. EF stress 58%) Echo: report reviewed (ECHO 11/16: TDS, EF cannot be determined due to poor image quality, ) Cardiac cath: report reviewed ([facility] 06/07: LM: patent, LCX: diffuse disease, LAD: diffuse disease, RCA: diffuse disease, mid 40%)
--- NOTE | 2017-01-27 12:36 | Progress Note ---
Assessment and Plan Imp: 1. Dilated CMP 2. Acute systolic CHF 3. CIERRA 4. Acute respiratory failure, hypoxia 5. Morbid obesity 6. s/p PEA arrest; may have aspirated 7. SIRS +/- aspiration pneumonitis +/- UTI Rec: 1. CXR shows improving CHF; wean off BIPAP as tolerated 2. Holding Lasix 2/2 CIERRA but consider resuming at some point 3. DVT PPx 4. ABX per ID 5. Beta-steven dose per cardiology 6. Cont. TFs; ST consult re: swallow 7. Needs to remain in ICU as remains critically ill on BIPAP 8. Complex patient Plan of care reviewed w/ patient, she understands/agrees Subjective Date of service: 01/27/17 Principal diagnosis: CHF exacerbation Interval history: On BIPAP currently. Awake, alert. No hemoptysis. SOB a little better. No chest pain. No new complaints. Active Medications Acetaminophen (Tylenol) 650 mg PO Q4H PRN PRN Reason: Pain MILD(1-3)/Fever >100.5/LIMA Last Admin: 01/26/17 21:08 Dose: 650 mg Lipase/Protease/Amylase (Pancreaze Dr 10,500 Unit) 1 each FEEDTUBE PRN PRN PRN Reason: For Clogged Feeding Tube Aspirin (Baby Aspirin) 81 mg PO QDAY [facility] Last Admin: 01/27/17 09:25 Dose: 81 mg Bisacodyl (Dulcolax) 10 mg [place] QDAY PRN PRN Reason: Constipation unrelieved by MOM Dextrose (D50w (25gm)) 50 ml IV PRN PRN PRN Reason: Hypoglycemia Famotidine (Pepcid) 20 mg PO BID [facility] Last Admin: 01/27/17 09:25 Dose: 20 mg Heparin Sodium (Porcine) (Heparin) 5,000 unit SUB-Q Q8HR [facility] Last Admin: 01/27/17 06:30 Dose: 5,000 unit Hydromorphone HCl (Dilaudid) 0.5 mg IV Q3H PRN PRN Reason: Pain , Severe (7-10) Last Admin: 01/24/17 18:22 Dose: 0.5 mg Hydrophilic Ointment (Vaseline Lip Therapy) 1 applic TP Q2HR PRN PRN Reason: Dry Lips Vancomycin HCl 2,000 mg/ (Sodium Chloride) 540 mls @ 250 mls/hr IV Q24H [facility] Stop: 01/27/17 23:59 Last Admin: 01/26/17 13:00 Dose: 250 mls/hr Milrinone Lactate 20 mg/ (Dextrose) 100 mls @ 16.48 mls/hr IV TITR ALANNA PRN Reason: 0.375 MCG/KG/MIN Insulin Aspart (Novolog) 0 units SUB-Q Q6HR ALANNA PRN Reason: Protocol Last Admin: 01/27/17 12:33 Dose: 4 units Insulin Detemir (Levemir) 15 units SUB-Q DAILY [facility] Stop: 01/27/17 23:59 Last Admin: 01/27/17 09:25 Dose: 15 units Insulin Detemir (Levemir) 20 units SUB-Q DAILY [facility] Metoclopramide HCl (Reglan) 10 mg IV Q8H PRN PRN Reason: Nausea And Vomiting Last Admin: 01/21/17 23:36 Dose: 10 mg Metoprolol Tartrate (Lopressor) 25 mg PO TID [facility] Last Admin: 01/27/17 09:25 Dose: 25 mg Multi-Ingred Cream/Lotion/Oil/Oint (Artificial Tears Ophth Oint) 1 applic OU Q4HR PRN PRN Reason: Dry Eye(s) Oxycodone/Acetaminophen (Percocet 5/325) 1 tab PO Q6H PRN PRN Reason: Pain, Moderate (4-6) Last Admin: 01/26/17 18:23 Dose: 1 tab Simple Syrup (Simple Syrup) 15 ml FEEDTUBE PRN PRN PRN Reason: Hypoglycemia Simple Syrup (Simple Syrup) 30 ml FEEDTUBE PRN PRN PRN Reason: Hypoglycemia Simvastatin (Zocor) 10 mg PO QHS [facility] Last Admin: 01/26/17 21:07 Dose: 10 mg Sodium Bicarbonate (Sodium Bicarbonate) 325 mg FEEDTUBE PRN PRN PRN Reason: For Clogged Feeding Tube Sodium Chloride (Sodium Chloride Flush Syringe 10 Ml) 10 ml IV PRN PRN PRN Reason: LINE FLUSH Vancomycin HCl (Vancomycin Pharmacy To Dose) 1 each IV PKCONSULT ALANNA PRN Reason: Protocol Stop: 01/27/17 12:59 Objective Vital Signs - 12hr 01/27/17 01/27/17 01/27/17 01:00 02:00 03:00 Temperature Pulse Rate 103 H 101 H 107 H Pulse Rate [ From Monitor] Respiratory 20 19 23 Rate Blood Pressure 111/76 116/86 112/82 O2 Sat by Pulse 99 98 98 Oximetry 01/27/17 01/27/17 01/27/17 03:23 04:00 05:00 Temperature 98.1 F Pulse Rate 108 H 114 H Pulse Rate [ 108 H From Monitor] Respiratory 26 H 21 Rate Blood Pressure 127/80 119/92 O2 Sat by Pulse 96 97 Oximetry 01/27/17 01/27/17 01/27/17 06:00 07:00 08:00 Temperature 97.6 F Pulse Rate 145 H 98 H 108 H Pulse Rate [ 108 H From Monitor] Respiratory 31 H 21 17 Rate Blood Pressure 118/81 109/73 105/72 O2 Sat by Pulse 93 98 98 Oximetry 01/27/17 01/27/17 01/27/17 09:00 09:01 09:25 Temperature Pulse Rate 111 H 112 H 107 H Pulse Rate [ From Monitor] Respiratory 25 H 23 Rate Blood Pressure 118/85 108/79 118/85 O2 Sat by Pulse 96 100 Oximetry 01/27/17 01/27/17 01/27/17 10:00 10:02 11:00 Temperature Pulse Rate 109 H 128 H Pulse Rate [ From Monitor] Respiratory 26 H 31 H Rate Blood Pressure 106/76 107/77 O2 Sat by Pulse 97 99 96 Oximetry Constitutional: no acute distress, alert Eyes: non-icteric ENT: oropharynx moist Neck: supple, no JVD Effort: normal Ascultation: Bilateral: clear (anteriorly) Cardiovascular: irregular rhythm (tachy) Gastrointestinal: normoactive bowel sounds, soft, other (obese) Integumentary: normal Extremities: no cyanosis, no edema, pink and warm, other (SCDs are in place) Neurologic: normal mental status, non-focal exam, pupils equal and round Psychiatric: mood appropriate, affect normal CBC and BMP: 01/27/17 04:45 01/27/17 04:45 ABG, PT/INR, D-dimer: ABG POC ABG pH 7.317 (7.35-7.45) L 01/23/17 16:51 POC ABG pCO2 49.6 (35-45) H 01/23/17 16:51 POC ABG pO2 93 (80-105) 01/23/17 16:51 POC ABG HCO3 25.4 01/23/17 16:51 POC ABG Total CO2 27 01/23/17 16:51 POC ABG O2 Sat 96 01/23/17 16:51 Abnormal lab findings: Abnormal Labs 01/15/17 01/15/17 01/15/17 17:45 22:06 23:40 WBC RDW 18.6 H Plt Count 114 L Lymph % (Auto) [place] % (Auto) Eos % (Auto) Baso % (Auto) Lymph # [place] # Seg Neutrophils % Seg Neuts % (Manual) 82.0 H Lymphocytes % (Manual) 7.0 L Monocytes % (Manual) Eosinophils % (Manual) Seg Neutrophils # Lymphocytes # (Manual) 0.4 L Monocytes # (Manual) POC ABG pH POC ABG pCO2 POC ABG pO2 Sodium Potassium Chloride Carbon Dioxide BUN Creatinine Glucose POC Glucose 147 H 135 H Uric Acid Calcium Total Bilirubin Alkaline Phosphatase CK-MB (CK-2) CK-MB (CK-2) Rel Index Total Protein Albumin Urine WBC (Auto) 01/15/17 01/16/17 01/16/17 23:40 03:44 08:49 WBC RDW Plt Count Lymph % (Auto) [place] % (Auto) Eos % (Auto) Baso % (Auto) Lymph # [place] # Seg Neutrophils % Seg Neuts % (Manual) Lymphocytes % (Manual) Monocytes % (Manual) Eosinophils % (Manual) Seg Neutrophils # Lymphocytes # (Manual) Monocytes # (Manual) POC ABG pH POC ABG pCO2 POC ABG pO2 Sodium 132 L Potassium 5.1 H Chloride 95.5 L Carbon Dioxide 20 L BUN 36 H Creatinine Glucose 128 H POC Glucose 117 H 126 H Uric Acid Calcium Total Bilirubin Alkaline Phosphatase CK-MB (CK-2) CK-MB (CK-2) Rel Index Total Protein Albumin Urine WBC (Auto) 01/16/17 01/16/17 01/16/17 08:56 08:56 12:06 WBC RDW 19.2 H Plt Count Lymph % (Auto) 6.6 L [place] % (Auto) 12.0 H Eos % (Auto) 5.8 H Baso % (Auto) 1.9 H Lymph # 0.3 L [place] # Seg Neutrophils % 73.7 H Seg Neuts % (Manual) Lymphocytes % (Manual) Monocytes % (Manual) Eosinophils % (Manual) Seg Neutrophils # Lymphocytes # (Manual) Monocytes # (Manual) POC ABG pH POC ABG pCO2 POC ABG pO2 Sodium 132 L Potassium Chloride 95.1 L Carbon Dioxide 19 L BUN 36 H Creatinine 1.3 H Glucose 129 H POC Glucose 172 H Uric Acid Calcium Total Bilirubin 1.40 H Alkaline Phosphatase CK-MB (CK-2) CK-MB (CK-2) Rel Index Total Protein 6.2 L Albumin 3.1 L Urine WBC (Auto) 01/16/17 01/17/17 01/17/17 22:34 05:29 05:29 WBC RDW 19.2 H Plt Count Lymph % (Auto) 5.9 L [place] % (Auto) 10.8 H Eos % (Auto) Baso % (Auto) Lymph # 0.4 L [place] # Seg Neutrophils % 80.1 H Seg Neuts % (Manual) Lymphocytes % (Manual) Monocytes % (Manual) Eosinophils % (Manual) Seg Neutrophils # Lymphocytes # (Manual) Monocytes # (Manual) POC ABG pH POC ABG pCO2 POC ABG pO2 Sodium 131 L Potassium 5.3 H Chloride 94.8 L Carbon Dioxide 21 L BUN 39 H Creatinine 1.4 H Glucose 196 H POC Glucose 210 H Uric Acid Calcium Total Bilirubin Alkaline Phosphatase CK-MB (CK-2) CK-MB (CK-2) Rel Index Total Protein Albumin Urine WBC (Auto) 01/17/17 01/17/17 01/17/17 07:39 17:39 22:45 WBC RDW Plt Count Lymph % (Auto) [place] % (Auto) Eos % (Auto) Baso % (Auto) Lymph # [place] # Seg Neutrophils % Seg Neuts % (Manual) Lymphocytes % (Manual) Monocytes % (Manual) Eosinophils % (Manual) Seg Neutrophils # Lymphocytes # (Manual) Monocytes # (Manual) POC ABG pH POC ABG pCO2 POC ABG pO2 Sodium Potassium Chloride Carbon Dioxide BUN Creatinine Glucose POC Glucose 198 H 208 H 223 H Uric Acid Calcium Total Bilirubin Alkaline Phosphatase CK-MB (CK-2) CK-MB (CK-2) Rel Index Total Protein Albumin Urine WBC (Auto) 01/18/17 01/18/17 01/18/17 05:07 08:32 12:24 WBC RDW Plt Count Lymph % (Auto) [place] % (Auto) Eos % (Auto) Baso % (Auto) Lymph # [place] # Seg Neutrophils % Seg Neuts % (Manual) Lymphocytes % (Manual) Monocytes % (Manual) Eosinophils % (Manual) Seg Neutrophils # Lymphocytes # (Manual) Monocytes # (Manual) POC ABG pH POC ABG pCO2 POC ABG pO2 Sodium 129 L Potassium 5.2 H Chloride 92.0 L Carbon Dioxide BUN 41 H Creatinine 1.5 H Glucose 228 H POC Glucose 236 H 230 H Uric Acid Calcium Total Bilirubin Alkaline Phosphatase CK-MB (CK-2) CK-MB (CK-2) Rel Index Total Protein Albumin Urine WBC (Auto) 01/18/17 01/19/17 01/19/17 16:00 03:46 03:46 WBC RDW 18.9 H Plt Count Lymph % (Auto) [place] % (Auto) Eos % (Auto) Baso % (Auto) Lymph # [place] # Seg Neutrophils % Seg Neuts % (Manual) Lymphocytes % (Manual) Monocytes % (Manual) Eosinophils % (Manual) Seg Neutrophils # Lymphocytes # (Manual) Monocytes # (Manual) POC ABG pH POC ABG pCO2 POC ABG pO2 Sodium 128 L Potassium Chloride 92.3 L Carbon Dioxide 21 L BUN 40 H Creatinine 1.4 H Glucose 178 H POC Glucose 253 H Uric Acid Calcium Total Bilirubin Alkaline Phosphatase CK-MB (CK-2) CK-MB (CK-2) Rel Index Total Protein Albumin Urine WBC (Auto) 01/19/17 01/19/17 01/19/17 09:21 11:45 13:02 WBC RDW Plt Count Lymph % (Auto) [place] % (Auto) Eos % (Auto) Baso % (Auto) Lymph # [place] # Seg Neutrophils % Seg Neuts % (Manual) Lymphocytes % (Manual) Monocytes % (Manual) Eosinophils % (Manual) Seg Neutrophils # Lymphocytes # (Manual) Monocytes # (Manual) POC ABG pH POC ABG pCO2 POC ABG pO2 Sodium 131 L Potassium Chloride 92.8 L Carbon Dioxide BUN 39 H Creatinine 1.4 H Glucose 159 H POC Glucose 135 H 125 H Uric Acid Calcium Total Bilirubin Alkaline Phosphatase CK-MB (CK-2) 4.1 H CK-MB (CK-2) Rel Index 4.1 H Total Protein Albumin Urine WBC (Auto) 01/19/17 01/20/17 01/20/17 15:48 04:00 05:45 WBC 11.5 H RDW 18.9 H Plt Count 131 L Lymph % (Auto) [place] % (Auto) Eos % (Auto) Baso % (Auto) Lymph # [place] # Seg Neutrophils % Seg Neuts % (Manual) Lymphocytes % (Manual) Monocytes % (Manual) Eosinophils % (Manual) Seg Neutrophils # Lymphocytes # (Manual) Monocytes # (Manual) POC ABG pH POC ABG pCO2 POC ABG pO2 189 H Sodium 129 L Potassium Chloride 91.4 L Carbon Dioxide BUN 37 H Creatinine 1.3 H Glucose POC Glucose Uric Acid Calcium Total Bilirubin Alkaline Phosphatase CK-MB (CK-2) CK-MB (CK-2) Rel Index Total Protein Albumin Urine WBC (Auto) 01/20/17 01/20/17 01/21/17 06:09 09:34 00:26 WBC RDW Plt Count Lymph % (Auto) [place] % (Auto) Eos % (Auto) Baso % (Auto) Lymph # [place] # Seg Neutrophils % Seg Neuts % (Manual) Lymphocytes % (Manual) Monocytes % (Manual) Eosinophils % (Manual) Seg Neutrophils # Lymphocytes # (Manual) Monocytes # (Manual) POC ABG pH POC ABG pCO2 POC ABG pO2 67 L Sodium Potassium Chloride Carbon Dioxide BUN Creatinine Glucose POC Glucose 109 H Uric Acid Calcium Total Bilirubin Alkaline Phosphatase CK-MB (CK-2) CK-MB (CK-2) Rel Index Total Protein Albumin Urine WBC (Auto) 15.0 H 01/21/17 01/21/17 01/21/17 04:23 05:20 05:20 WBC 11.8 H RDW 18.9 H Plt Count 135 L Lymph % (Auto) [place] % (Auto) Eos % (Auto) Baso % (Auto) Lymph # [place] # Seg Neutrophils % Seg Neuts % (Manual) Lymphocytes % (Manual) Monocytes % (Manual) Eosinophils % (Manual) Seg Neutrophils # Lymphocytes # (Manual) Monocytes # (Manual) POC ABG pH 7.338 L POC ABG pCO2 48.6 H POC ABG pO2 67 L Sodium 134 L Potassium Chloride 95.5 L Carbon Dioxide BUN 38 H Creatinine 1.5 H Glucose 110 H POC Glucose Uric Acid Calcium Total Bilirubin Alkaline Phosphatase CK-MB (CK-2) CK-MB (CK-2) Rel Index Total Protein Albumin Urine WBC (Auto) 01/21/17 01/21/17 01/21/17 05:38 18:20 22:54 WBC RDW Plt Count Lymph % (Auto) [place] % (Auto) Eos % (Auto) Baso % (Auto) Lymph # [place] # Seg Neutrophils % Seg Neuts % (Manual) Lymphocytes % (Manual) Monocytes % (Manual) Eosinophils % (Manual) Seg Neutrophils # Lymphocytes # (Manual) Monocytes # (Manual) POC ABG pH POC ABG pCO2 POC ABG pO2 Sodium Potassium Chloride Carbon Dioxide BUN Creatinine Glucose POC Glucose 120 H 135 H 163 H Uric Acid Calcium Total Bilirubin Alkaline Phosphatase CK-MB (CK-2) CK-MB (CK-2) Rel Index Total Protein Albumin Urine WBC (Auto) 01/22/17 01/22/17 01/22/17 04:00 04:00 11:27 WBC 11.6 H RDW 18.7 H Plt Count 116 L Lymph % (Auto) 2.9 L [place] % (Auto) 11.1 H Eos % (Auto) Baso % (Auto) Lymph # 0.3 L [place] # 1.3 H Seg Neutrophils % 84.2 H Seg Neuts % (Manual) Lymphocytes % (Manual) Monocytes % (Manual) Eosinophils % (Manual) Seg Neutrophils # 9.8 H Lymphocytes # (Manual) Monocytes # (Manual) POC ABG pH POC ABG pCO2 POC ABG pO2 Sodium 135 L Potassium Chloride 94.6 L Carbon Dioxide BUN 43 H Creatinine 1.9 H Glucose 148 H POC Glucose 151 H Uric Acid Calcium Total Bilirubin 1.60 H Alkaline Phosphatase CK-MB (CK-2) CK-MB (CK-2) Rel Index Total Protein 5.6 L Albumin 2.8 L Urine WBC (Auto) 01/22/17 01/22/17 01/22/17 11:37 13:00 17:14 WBC RDW Plt Count Lymph % (Auto) [place] % (Auto) Eos % (Auto) Baso % (Auto) Lymph # [place] # Seg Neutrophils % Seg Neuts % (Manual) Lymphocytes % (Manual) Monocytes % (Manual) Eosinophils % (Manual) Seg Neutrophils # Lymphocytes # (Manual) Monocytes # (Manual) POC ABG pH POC ABG pCO2 45.2 H POC ABG pO2 Sodium Potassium Chloride Carbon Dioxide BUN Creatinine Glucose POC Glucose 178 H Uric Acid 12.0 H Calcium Total Bilirubin Alkaline Phosphatase CK-MB (CK-2) CK-MB (CK-2) Rel Index Total Protein Albumin Urine WBC (Auto) 01/22/17 01/23/17 01/23/17 23:33 04:10 04:10 WBC RDW 19.1 H Plt Count Lymph % (Auto) 3.3 L [place] % (Auto) 11.5 H Eos % (Auto) Baso % (Auto) Lymph # 0.3 L [place] # 1.2 H Seg Neutrophils % 83.9 H Seg Neuts % (Manual) Lymphocytes % (Manual) Monocytes % (Manual) Eosinophils % (Manual) Seg Neutrophils # 8.4 H Lymphocytes # (Manual) Monocytes # (Manual) POC ABG pH POC ABG pCO2 POC ABG pO2 Sodium 134 L Potassium Chloride 95.1 L Carbon Dioxide BUN 48 H Creatinine 2.0 H Glucose 197 H POC Glucose 202 H Uric Acid Calcium Total Bilirubin Alkaline Phosphatase CK-MB (CK-2) CK-MB (CK-2) Rel Index Total Protein Albumin Urine WBC (Auto) 01/23/17 01/23/17 01/23/17 05:19 12:16 16:51 WBC RDW Plt Count Lymph % (Auto) [place] % (Auto) Eos % (Auto) Baso % (Auto) Lymph # [place] # Seg Neutrophils % Seg Neuts % (Manual) Lymphocytes % (Manual) Monocytes % (Manual) Eosinophils % (Manual) Seg Neutrophils # Lymphocytes # (Manual) Monocytes # (Manual) POC ABG pH 7.317 L POC ABG pCO2 49.6 H POC ABG pO2 Sodium Potassium Chloride Carbon Dioxide BUN Creatinine Glucose POC Glucose 186 H 146 H Uric Acid Calcium Total Bilirubin Alkaline Phosphatase CK-MB (CK-2) CK-MB (CK-2) Rel Index Total Protein Albumin Urine WBC (Auto) 01/23/17 01/23/17 01/24/17 17:24 23:57 05:12 WBC RDW Plt Count Lymph % (Auto) [place] % (Auto) Eos % (Auto) Baso % (Auto) Lymph # [place] # Seg Neutrophils % Seg Neuts % (Manual) Lymphocytes % (Manual) Monocytes % (Manual) Eosinophils % (Manual) Seg Neutrophils # Lymphocytes # (Manual) Monocytes # (Manual) POC ABG pH POC ABG pCO2 POC ABG pO2 Sodium Potassium Chloride Carbon Dioxide BUN Creatinine Glucose POC Glucose 176 H 212 H 215 H Uric Acid Calcium Total Bilirubin Alkaline Phosphatase CK-MB (CK-2) CK-MB (CK-2) Rel Index Total Protein Albumin Urine WBC (Auto) 01/24/17 01/24/17 01/24/17 05:44 07:50 12:14 WBC RDW Plt Count Lymph % (Auto) [place] % (Auto) Eos % (Auto) Baso % (Auto) Lymph # [place] # Seg Neutrophils % Seg Neuts % (Manual) Lymphocytes % (Manual) Monocytes % (Manual) Eosinophils % (Manual) Seg Neutrophils # Lymphocytes # (Manual) Monocytes # (Manual) POC ABG pH POC ABG pCO2 POC ABG pO2 Sodium 136 L D Potassium 2.0 L* D Chloride 120.0 H 97.9 L Carbon Dioxide 15 L D BUN 34 H 54 H Creatinine 1.9 H D Glucose 138 H 205 H POC Glucose 210 H Uric Acid Calcium 4.8 L* D Total Bilirubin Alkaline Phosphatase 33 L CK-MB (CK-2) CK-MB (CK-2) Rel Index Total Protein 3.0 L D Albumin 1.4 L Urine WBC (Auto) 01/24/17 01/24/17 01/24/17 16:54 23:35 Unknown WBC RDW 18.6 H Plt Count 138 L Lymph % (Auto) [place] % (Auto) Eos % (Auto) Baso % (Auto) Lymph # [place] # Seg Neutrophils % Seg Neuts % (Manual) 71.0 H Lymphocytes % (Manual) 5.0 L Monocytes % (Manual) 18.0 H Eosinophils % (Manual) 5.0 H Seg Neutrophils # Lymphocytes # (Manual) 0.4 L Monocytes # (Manual) 1.3 H POC ABG pH POC ABG pCO2 POC ABG pO2 Sodium Potassium Chloride Carbon Dioxide BUN Creatinine Glucose POC Glucose 227 H 260 H Uric Acid Calcium Total Bilirubin Alkaline Phosphatase CK-MB (CK-2) CK-MB (CK-2) Rel Index Total Protein Albumin Urine WBC (Auto) 01/25/17 01/25/17 01/25/17 05:52 07:54 07:54 WBC RDW 18.9 H Plt Count Lymph % (Auto) [place] % (Auto) Eos % (Auto) Baso % (Auto) Lymph # [place] # Seg Neutrophils % Seg Neuts % (Manual) Lymphocytes % (Manual) Monocytes % (Manual) Eosinophils % (Manual) Seg Neutrophils # Lymphocytes # (Manual) Monocytes # (Manual) POC ABG pH POC ABG pCO2 POC ABG pO2 Sodium 135 L Potassium Chloride 97.0 L Carbon Dioxide BUN 55 H Creatinine 1.6 H Glucose 235 H POC Glucose 226 H Uric Acid Calcium Total Bilirubin Alkaline Phosphatase CK-MB (CK-2) CK-MB (CK-2) Rel Index Total Protein Albumin Urine WBC (Auto) 01/25/17 01/25/17 01/25/17 11:38 17:15 23:21 WBC RDW Plt Count Lymph % (Auto) [place] % (Auto) Eos % (Auto) Baso % (Auto) Lymph # [place] # Seg Neutrophils % Seg Neuts % (Manual) Lymphocytes % (Manual) Monocytes % (Manual) Eosinophils % (Manual) Seg Neutrophils # Lymphocytes # (Manual) Monocytes # (Manual) POC ABG pH POC ABG pCO2 POC ABG pO2 Sodium Potassium Chloride Carbon Dioxide BUN Creatinine Glucose POC Glucose 226 H 249 H 245 H Uric Acid Calcium Total Bilirubin Alkaline Phosphatase CK-MB (CK-2) CK-MB (CK-2) Rel Index Total Protein Albumin Urine WBC (Auto) 01/26/17 01/26/17 01/26/17 05:27 12:52 18:16 WBC RDW Plt Count Lymph % (Auto) [place] % (Auto) Eos % (Auto) Baso % (Auto) Lymph # [place] # Seg Neutrophils % Seg Neuts % (Manual) Lymphocytes % (Manual) Monocytes % (Manual) Eosinophils % (Manual) Seg Neutrophils # Lymphocytes # (Manual) Monocytes # (Manual) POC ABG pH POC ABG pCO2 POC ABG pO2 Sodium Potassium Chloride Carbon Dioxide BUN Creatinine Glucose POC Glucose 244 H 231 H 231 H Uric Acid Calcium Total Bilirubin Alkaline Phosphatase CK-MB (CK-2) CK-MB (CK-2) Rel Index Total Protein Albumin Urine WBC (Auto) 01/26/17 01/26/17 01/27/17 18:18 23:33 04:45 WBC RDW 18.6 H Plt Count Lymph % (Auto) 4.6 L [place] % (Auto) 13.6 H Eos % (Auto) 4.4 H Baso % (Auto) Lymph # 0.4 L [place] # 1.1 H Seg Neutrophils % 76.5 H Seg Neuts % (Manual) Lymphocytes % (Manual) Monocytes % (Manual) Eosinophils % (Manual) Seg Neutrophils # Lymphocytes # (Manual) Monocytes # (Manual) POC ABG pH POC ABG pCO2 POC ABG pO2 Sodium Potassium Chloride Carbon Dioxide BUN Creatinine Glucose POC Glucose 191 H 202 H Uric Acid Calcium Total Bilirubin Alkaline Phosphatase CK-MB (CK-2) CK-MB (CK-2) Rel Index Total Protein Albumin Urine WBC (Auto) 01/27/17 01/27/17 01/27/17 04:45 05:36 12:24 WBC RDW Plt Count Lymph % (Auto) [place] % (Auto) Eos % (Auto) Baso % (Auto) Lymph # [place] # Seg Neutrophils % Seg Neuts % (Manual) Lymphocytes % (Manual) Monocytes % (Manual) Eosinophils % (Manual) Seg Neutrophils # Lymphocytes # (Manual) Monocytes # (Manual) POC ABG pH POC ABG pCO2 POC ABG pO2 Sodium Potassium Chloride Carbon Dioxide BUN 54 H Creatinine Glucose 202 H POC Glucose 202 H 219 H Uric Acid Calcium Total Bilirubin Alkaline Phosphatase CK-MB (CK-2) CK-MB (CK-2) Rel Index Total Protein Albumin Urine WBC (Auto) Chest x-ray: report reviewed, image reviewed (improving CHF)
[2017-01-27] MEDS: PRIMACOR 20 MG in D5W 80 ML IV SCH ×2 (12:57→17:34)
[2017-01-27] MEDS: VANCOMYCIN 2,000 MG in NACL 0.9% 500 ML 500 ML IV SCH (13:41)
--- NOTE | 2017-01-27 18:35 | Progress Note ---
Assessment and Plan - Patient Problems (1) Aspiration pneumonia Current Visit: Yes Status: Acute Qualifiers: Aspiration pneumonia type: A Laterality: L Lung location: L Plan to address problem: 1. Will discontinue Vancomycin today as patient has completed a course of therapy. 2. Remains afebrile. 3. I will sign off. Please call again if there are additional questions or concerns. (2) Vaginal candidiasis Current Visit: Yes Status: Acute Plan to address problem: Course of Fluconazole for 3-5 days. Antibiotics have been stopped. Subjective Date of service: 01/27/17 Principal diagnosis: CHF exacerbation Interval history: Afebrile. Vaginal pruritis concerned for "yeast infection". Objective - Constitutional Vitals: Vital Signs Temp Pulse Resp BP Pulse Ox 97.4 F L 141 H 17 110/74 97 01/27/17 16:00 01/27/17 16:52 01/27/17 16:52 01/27/17 16:52 01/27/17 16:52 Temperature -Last 24 Hours Temperature 97.4 F Temperature 97.8 F Temperature 97.6 F Temperature 98.1 F Temperature 98.0 F Temperature 98.7 F General appearance: Present: well-nourished, obese, other (family present) - EENT Eyes: no conjunctival injection ENT: other (Dobhoff tube in place) - Respiratory Respiratory effort: normal Respiratory: bilateral: diminished - Cardiovascular Rhythm: irregularly irregular Heart Sounds: Present: S1 & S2 Extremities: No edema - Gastrointestinal General gastrointestinal: Present: soft, non-distended - Neurologic Neurologic: no focal deficits - Psychiatric Psychiatric: appropriate mood/affect (conversant) - Labs CBC & Chem 7: 01/27/17 04:45 01/27/17 04:45 Labs: Abnormal lab results 01/26/17 01/26/17 01/26/17 Range/Units 12:52 18:16 18:18 RDW (13.2-15.2) % Lymph % (Auto) (13.4-35.0) % [place] % (Auto) (0.0-7.3) % Eos % (Auto) (0.0-4.3) % Lymph # (1.2-5.4) K/mm3 [place] # (0.0-0.8) K/mm3 Seg Neutrophils % (40.0-70.0) % BUN (7-17) mg/dL Glucose (65-100) mg/dL POC Glucose 231 H 231 H 191 H (70-105) 01/26/17 01/27/17 01/27/17 Range/Units 23:33 04:45 04:45 RDW 18.6 H (13.2-15.2) % Lymph % (Auto) 4.6 L (13.4-35.0) % [place] % (Auto) 13.6 H (0.0-7.3) % Eos % (Auto) 4.4 H (0.0-4.3) % Lymph # 0.4 L (1.2-5.4) K/mm3 [place] # 1.1 H (0.0-0.8) K/mm3 Seg Neutrophils % 76.5 H (40.0-70.0) % BUN 54 H (7-17) mg/dL Glucose 202 H (65-100) mg/dL POC Glucose 202 H (70-105) 01/27/17 01/27/17 Range/Units 05:36 12:24 RDW (13.2-15.2) % Lymph % (Auto) (13.4-35.0) % [place] % (Auto) (0.0-7.3) % Eos % (Auto) (0.0-4.3) % Lymph # (1.2-5.4) K/mm3 [place] # (0.0-0.8) K/mm3 Seg Neutrophils % (40.0-70.0) % BUN (7-17) mg/dL Glucose (65-100) mg/dL POC Glucose 202 H 219 H (70-105) Microbiology 01/20/17 10:00 Peripheral/Venous Blood Culture - Final NO GROWTH AFTER 5 DAYS 01/20/17 10:00 Peripheral/Venous Blood Culture - Final NO GROWTH AFTER 5 DAYS 01/20/17 10:08 Urine,Catheterized - Indwelling Catheter Urine Culture - Final Enterococcus Faecalis 01/19/17 12:33 Tracheal Aspirate Sputum Culture - Final
[2017-01-27] MEDS: ZOCOR PO SCH (22:58)
[2017-01-27] MEDS: PERCOCET 5/325 PO PRN (22:58)
[2017-01-27] MEDS: DIFLUCAN/NS 100 MG/50 ML 100 MG/50 ML BAG IV SCH (23:01)
[2017-01-28] MEDS: LOPRESSOR PO SCH ×4 (00:28→22:10)
[2017-01-28 05:48] LABS: Basophils % (Auto) 1.1 % (0.0-1.8); Eosinophils % (Auto) 4.8 % (0.0-4.3); Hematocrit 37.1 % (30.3-42.9); Hemoglobin 12.3 gm/dl (10.1-14.3); Mean Corpuscular HGB Conc 33 % (30-34); Mean Corpuscular Hemoglobin 29 pg (28-32); Mean Corpuscular Volume 87 fl (79-97); Platelet Count 168 K/mm3 (140-440); Red Blood Count 4.27 M/mm3 (3.65-5.03); Red Cell Distribution Width 18.6 % (13.2-15.2); White Blood Count 8.9 K/mm3 (4.5-11.0)
[2017-01-28 06:00] LABS: Calcium 9.4 mg/dL (8.4-10.2); Potassium 3.6 mmol/L (3.6-5.0)
[2017-01-28] MEDS: PRIMACOR 20 MG in D5W 80 ML IV SCH (06:05)
[2017-01-28] MEDS: HEPARIN SUB-Q SCH ×3 (06:09→22:11)
[2017-01-28] MEDS: NOVOLOG SUB-Q SCH ×4 (06:10→19:02)
[2017-01-28] MEDS: LEVEMIR SUB-Q SCH (09:40)
[2017-01-28] MEDS: PEPCID PO SCH ×2 (09:40→22:11)
[2017-01-28] MEDS: DIFLUCAN/NS 100 MG/50 ML 100 MG/50 ML BAG IV SCH (09:40)
[2017-01-28] MEDS: BABY ASPIRIN PO SCH (09:40)
[2017-01-28] MEDS: PERCOCET 5/325 PO PRN (09:55)
--- NOTE | 2017-01-28 10:31 | Progress Note ---
Subjective Principal diagnosis: CHF exacerbation Interval history: Patient was seen today for follow-up on multiple renal related issues Creatinine 1.4 now was 1.2 yesterday She denies any chest pain Events of 24 hours noted Vitals labs intake output and medications were reviewed Social history: Reviewed Family history: Reviewed Allergy: Reviewed Physical examination Vitals: Reviewed HEENT: Oral mucosa moist Neck: Supple no JVD Chest: Bilateral clear to auscultation no crackles rales or wheezes Heart: Regular rate and rhythm S1 and S2 heard Abdomen: Soft nontender no voluntary guarding rigidity rebound Extremity: Minimal edema dry skin Dermatology; dry skin no edema Assessment and plan Acute renal failure: Patient mostly appear to be prerenal currently improving well /may have had low-grade acute tubular necrosis Creatinine stable to follow Avoid hypotension hypoxemia Monitor blood pressure closely Follow-up on an as-needed basis We'll continue to follow and make recommendation from renal standpoint Objective - Vital Signs Vital signs: Vital Signs - 12hr 01/27/17 01/27/17 01/27/17 23:00 23:57 23:59 Temperature 97.6 F Pulse Rate 124 H 104 H Pulse Rate [ From Monitor] Respiratory 19 21 Rate Blood Pressure 98/66 90/62 O2 Sat by Pulse 96 Oximetry 01/28/17 01/28/17 01/28/17 00:00 00:28 01:00 Temperature Pulse Rate 127 H 140 H 141 H Pulse Rate [ 138 H From Monitor] Respiratory 19 17 Rate Blood Pressure 81/47 84/40 90/56 O2 Sat by Pulse 98 Oximetry 01/28/17 01/28/17 01/28/17 02:00 03:00 03:23 Temperature 97.7 F Pulse Rate 102 H 107 H Pulse Rate [ From Monitor] Respiratory 18 21 Rate Blood Pressure 97/52 94/69 O2 Sat by Pulse 99 97 Oximetry 01/28/17 01/28/17 01/28/17 04:00 05:00 06:00 Temperature Pulse Rate 141 H 108 H 141 H Pulse Rate [ 140 H From Monitor] Respiratory 20 18 29 H Rate Blood Pressure 94/67 87/58 146/101 O2 Sat by Pulse 95 98 97 Oximetry 01/28/17 01/28/17 01/28/17 07:00 08:00 08:50 Temperature 97.3 F L Pulse Rate 151 H 147 H 138 H Pulse Rate [ 147 H From Monitor] Respiratory 25 H 13 19 Rate Blood Pressure 112/88 111/80 100/55 O2 Sat by Pulse 100 93 100 Oximetry 01/28/17 01/28/17 09:00 09:03 Temperature Pulse Rate 147 H Pulse Rate [ From Monitor] Respiratory 17 Rate Blood Pressure 100/55 O2 Sat by Pulse 100 100 Oximetry - Lab 01/28/17 05:00 01/28/17 05:00 Most recent lab results Calcium 9.4 mg/dL (8.4-10.2) 01/28/17 05:00 Magnesium 2.00 mg/dL (1.7-2.3) 01/22/17 04:00
--- NOTE | 2017-01-28 11:28 | Progress Note ---
Assessment and Plan S/p PEA cardiorespiratory arrest 01/19 Extubated Ade negative for AMI s/p code; ECG with no ischemic changes Dobutamine gtt d/c'd s/p IV amio 150mg bolus x 1. 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 consider resuming IV lasix if okay per nephrology. cont lopressor. ACEI/ARB held in setting of CIERRA. Initiate milrinone at lowest standard dosage. Do not titrate. Aspiration PNA ID following. CIERRA / Hyperkalemia nephrology following Hyponatremia monitor Accelerated junction arrhythmia / 1st degree AV block Per EP, QRS vector same as office EKG unlikely VT Also with intermittent SR with prolonged OH v. IVCD v. idioventricular rhythm noted on tele. continue lopressor. give IV lopressor, 5mg now. Cardiomyopathy EF 10 - 15% NSVT Diabetes Hypertension Hyperlipidemia History of Breast CA Obesity D/c milrinone gtt. Give IV lopressor x 1 dose. Cont close observation and telemetry. Consider resuming IV lasix if okay per nephrology as renal indices appear to be improving. Overall poor prognosis. The patient has been seen in conjunction with Dr. Del Castillo who agrees with the assessment and plan of care. Subjective Date of service: 01/28/17 Principal diagnosis: CHF exacerbation Interval history: Pt resting in bed, on O2 via HiFlo NC. Remains apparent 1st degree AV block with IVCD on tele, tachycardic. Objective Last Vital Signs Temp 97.3 F L 01/28/17 08:00 Pulse 147 H 01/28/17 09:03 Resp 17 01/28/17 09:03 BP 100/55 01/28/17 09:03 Pulse Ox 100 01/28/17 09:03 - Physical Examination General: Appears Well HEENT: Positive: PERRL, EOMI Neck: Positive: neck supple, trachea midline. Negative: JVD/HJR Cardiac: Positive: S1/S2, Tachycardia Lungs: Positive: Decreased Breath Sounds, Oxygen Neuro: Positive: Grossly Intact Abdomen: Positive: Unremarkable, Soft, Active Bowel Sounds Skin: Negative: Rash, Suspicious Lesions Extremities: Present: edema (trace BLE ), warm, Other (chronic venous stasis changes) - Labs and Meds CBC 01/28/17 Range/Units 05:00 WBC 8.9 (4.5-11.0) K/mm3 RBC 4.27 (3.65-5.03) M/mm3 Hgb 12.3 (10.1-14.3) gm/dl Hct 37.1 (30.3-42.9) % Plt Count 168 (140-440) K/mm3 Lymph # 0.4 L (1.2-5.4) K/mm3 [place] # 1.2 H (0.0-0.8) K/mm3 Eos # 0.4 (0.0-0.4) K/mm3 Baso # 0.1 (0.0-0.1) K/mm3 Comprehensive Metabolic Panel 01/28/17 Range/Units 05:00 Sodium 136 L (137-145) mmol/L Potassium 3.6 (3.6-5.0) mmol/L Chloride 99.0 (98-107) mmol/L Carbon Dioxide 25 (22-30) mmol/L BUN 56 H (7-17) mg/dL Creatinine 1.4 H (0.7-1.2) mg/dL Glucose 225 H (65-100) mg/dL Calcium 9.4 (8.4-10.2) mg/dL - Imaging and Cardiology EKG: report reviewed (Tachycardia of 128/min Junctional rhythm) Stress echo: report reviewed (Cardiac PET 11/11: very small mild anterior, anteroapical mild reversible defect. EF stress 58%) Echo: report reviewed (ECHO 11/16: TDS, EF cannot be determined due to poor image quality, ) Cardiac cath: report reviewed ([facility] 06/07: LM: patent, LCX: diffuse disease, LAD: diffuse disease, RCA: diffuse disease, mid 40%)
[2017-01-28] MEDS ORDERED: LOPRESSOR IV ONE (12:00)
[2017-01-28] MEDS: TYLENOL PO PRN (12:14)
--- NOTE | 2017-01-28 12:50 | Progress Note ---
Assessment and Plan Assessment and plan: S/p PEA cardiorespiratory arrest 01/19. s/p IV amio 150mg bolus x 1. Cardiology following. Cardiac isoenzymes negative for AMI s/p code; ECG with no ischemic changes. Patient previously on Dobutamine gtt which has now been discontinued. 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 Patient started on milrinone drip. Continue per cardiology. Cont strict I/O. The diuretics held in setting of CIERRA. Consider resuming IV lasix if okay per nephrology. Cont lopressor. ACEI/ARB held in setting of CIERRA. Aspiration PNA. Treated. Patient off antibiotics. Sepsis. Etiology secondary to pneumonia and UTI. Urine culture revealed enterococcus. Acute hypoxic respiratory failure. Etiology secondary to above. Patient currently on high flow O2. Continue BiPAP as clinically indicated. Pulmonary following. Acute renal failure. Renal function appears to be stable at present. Etiology secondary to CIERRA and vasomotor nephropathy. Nephrology following. Avoid nephrotoxic agents. Maintain MAP greater than 65. Hyponatremia. Follow-up BMP Accelerated junction arrhythmia / 1st degree AV block. Cardiology following. Continue Lopressor. Cardiomyopathy. 01/15/2017 2D echocardiogram reported as global left ventricular systolic function is severely decreased, estimated EF is 10-15%, left atrium mildly dilated, right ventricle is mild to moderately dilated, right ventricular global systolic function is moderately reduced, right atrium is mild to moderate dilated, trace AR, no , mitral annular calcification, mild MR, no ms, moderate TR, right ventricular systolic function is calculated at 48mmhg, there is small pericardial effusion which does not appear to be hemodynamically significant NSVT. Continue medications as above per cardiology. Acute toxic metabolic encephalopathy. Resolved. Enterococcus UTI. Continue IV antibiotics. Diabetes type II, uncontrolled. Continue sliding scale and Accu-Cheks. Hypertension. Continue antihypertensive medications. Hyperlipidemia History of Breast CA Obesity History Interval history: No new issues overnight. Patient currently on BiPAP. Hospitalist Physical - Constitutional Vitals: Temp Pulse Resp BP Pulse Ox 97.3 F L 123 H 17 107/50 100 01/28/17 08:00 01/28/17 11:53 01/28/17 09:03 01/28/17 11:53 01/28/17 11:43 General appearance: Present: well-nourished, obese, other (family present) - EENT Eyes: Present: PERRL, EOM intact ENT: hearing intact, clear oral mucosa, dentition normal - Neck Neck: Present: supple, normal ROM - Respiratory Respiratory effort: normal Respiratory: bilateral: CTA - Cardiovascular Rhythm: regular Heart Sounds: Present: S1 & S2. Absent: gallop, rub - Extremities Extremities: no ischemia, No edema, Full ROM - Abdominal General gastrointestinal: soft, non-tender, non-distended, normal bowel sounds - Integumentary Integumentary: Present: clear, warm, dry - Neurologic Neurologic: CNII-XII intact, moves all extremities Results - Labs CBC & Chem 7: 01/28/17 05:00 01/28/17 05:00 Labs: Laboratory Last Values WBC 8.9 K/mm3 (4.5-11.0) 01/28/17 05:00 RBC 4.27 M/mm3 (3.65-5.03) 01/28/17 05:00 Hgb 12.3 gm/dl (10.1-14.3) 01/28/17 05:00 Hct 37.1 % (30.3-42.9) 01/28/17 05:00 MCV 87 fl (79-97) 01/28/17 05:00 MCH 29 pg (28-32) 01/28/17 05:00 MCHC 33 % (30-34) 01/28/17 05:00 RDW 18.6 % (13.2-15.2) H 01/28/17 05:00 Plt Count 168 K/mm3 (140-440) 01/28/17 05:00 Lymph % (Auto) 4.8 % (13.4-35.0) L 01/28/17 05:00 [place] % (Auto) 13.0 % (0.0-7.3) H 01/28/17 05:00 Eos % (Auto) 4.8 % (0.0-4.3) H 01/28/17 05:00 Baso % (Auto) 1.1 % (0.0-1.8) 01/28/17 05:00 Lymph # 0.4 K/mm3 (1.2-5.4) L 01/28/17 05:00 [place] # 1.2 K/mm3 (0.0-0.8) H 01/28/17 05:00 Eos # 0.4 K/mm3 (0.0-0.4) 01/28/17 05:00 Baso # 0.1 K/mm3 (0.0-0.1) 01/28/17 05:00 Add Manual Diff Complete 01/24/17 Unknown Total Counted 100 01/24/17 Unknown Seg Neutrophils % 76.3 % (40.0-70.0) H 01/28/17 05:00 Seg Neuts % (Manual) 71.0 % (40.0-70.0) H 01/24/17 Unknown Band Neutrophils % 0 % 01/24/17 Unknown Lymphocytes % (Manual) 5.0 % (13.4-35.0) L 01/24/17 Unknown Reactive Lymphs % (Man) 0 % 01/24/17 Unknown Monocytes % (Manual) 18.0 % (0.0-7.3) H 01/24/17 Unknown Eosinophils % (Manual) 5.0 % (0.0-4.3) H 01/24/17 Unknown Basophils % (Manual) 1.0 % (0.0-1.8) 01/24/17 Unknown Metamyelocytes % 0 % 01/24/17 Unknown Myelocytes % 0 % 01/24/17 Unknown Promyelocytes % 0 % 01/24/17 Unknown Blast Cells % 0 % 01/24/17 Unknown Nucleated RBC % Not Reportable 01/24/17 Unknown Seg Neutrophils # 6.8 K/mm3 (1.8-7.7) 01/28/17 05:00 Seg Neutrophils # Man 5.1 K/mm3 (1.8-7.7) 01/24/17 Unknown Band Neutrophils # 0.0 K/mm3 01/24/17 Unknown Lymphocytes # (Manual) 0.4 K/mm3 (1.2-5.4) L 01/24/17 Unknown Abs React Lymphs (Man) 0.0 K/mm3 01/24/17 Unknown Monocytes # (Manual) 1.3 K/mm3 (0.0-0.8) H 01/24/17 Unknown Eosinophils # (Manual) 0.4 K/mm3 (0.0-0.4) 01/24/17 Unknown Basophils # (Manual) 0.1 K/mm3 (0.0-0.1) 01/24/17 Unknown Metamyelocytes # 0.0 K/mm3 01/24/17 Unknown Myelocytes # 0.0 K/mm3 01/24/17 Unknown Promyelocytes # 0.0 K/mm3 01/24/17 Unknown Blast Cells # 0.0 K/mm3 01/24/17 Unknown WBC Morphology Not Reportable 01/24/17 Unknown Hypersegmented Neuts Not Reportable 01/24/17 Unknown Hyposegmented Neuts Not Reportable 01/24/17 Unknown Hypogranular Neuts Not Reportable 01/24/17 Unknown Smudge Cells Not Reportable 01/24/17 Unknown Toxic Granulation Not Reportable 01/24/17 Unknown Toxic Vacuolation Not Reportable 01/24/17 Unknown Dohle Bodies Not Reportable 01/24/17 Unknown Pelger-Huet Anomaly Not Reportable 01/24/17 Unknown Yusuf Rods Not Reportable 01/24/17 Unknown Platelet Estimate Consistent w auto 01/24/17 Unknown Clumped Platelets Not Reportable 01/24/17 Unknown Plt Clumps, EDTA Not Reportable 01/24/17 Unknown Large Platelets Not Reportable 01/24/17 Unknown Giant Platelets Not Reportable 01/24/17 Unknown Platelet Satelliting Not Reportable 01/24/17 Unknown Plt Morphology Comment Not Reportable 01/24/17 Unknown RBC Morphology Normal 01/24/17 Unknown Dimorphic RBCs Not Reportable 01/24/17 Unknown Polychromasia Not Reportable 01/24/17 Unknown Hypochromasia Not Reportable 01/24/17 Unknown Poikilocytosis Not Reportable 01/24/17 Unknown Anisocytosis Not Reportable 01/24/17 Unknown Microcytosis Not Reportable 01/24/17 Unknown Macrocytosis Not Reportable 01/24/17 Unknown Spherocytes Not Reportable 01/24/17 Unknown Pappenheimer Bodies Not Reportable 01/24/17 Unknown Sickle Cells Not Reportable 01/24/17 Unknown Target Cells Not Reportable 01/24/17 Unknown Tear Drop Cells Not Reportable 01/24/17 Unknown Ovalocytes Not Reportable 01/24/17 Unknown Helmet Cells Not Reportable 01/24/17 Unknown [place] Bodies Not Reportable 01/24/17 Unknown [place] Rings Not Reportable 01/24/17 Unknown Wally Cells Not Reportable 01/24/17 Unknown Bite Cells Not Reportable 01/24/17 Unknown Crenated Cell Not Reportable 01/24/17 Unknown Elliptocytes Not Reportable 01/24/17 Unknown Acanthocytes (Spur) Not Reportable 01/24/17 Unknown Rouleaux Not Reportable 01/24/17 Unknown Hemoglobin C Crystals Not Reportable 01/24/17 Unknown Schistocytes Not Reportable 01/24/17 Unknown Malaria parasites Not Reportable 01/24/17 Unknown [place] Bodies Not Reportable 01/24/17 Unknown Hem Pathologist Commnt No 01/24/17 Unknown POC ABG pH 7.317 (7.35-7.45) L 01/23/17 16:51 POC ABG pCO2 49.6 (35-45) H 01/23/17 16:51 POC ABG pO2 93 (80-105) 01/23/17 16:51 POC ABG HCO3 25.4 01/23/17 16:51 POC ABG Total CO2 27 01/23/17 16:51 POC ABG O2 Sat 96 01/23/17 16:51 POC ABG Base Excess -1 01/23/17 16:51 FiO2 35 % 01/23/17 16:51 Sodium 136 mmol/L (137-145) L 01/28/17 05:00 Potassium 3.6 mmol/L (3.6-5.0) 01/28/17 05:00 Chloride 99.0 mmol/L (98-107) 01/28/17 05:00 Carbon Dioxide 25 mmol/L (22-30) 01/28/17 05:00 Anion Gap 16 mmol/L 01/28/17 05:00 BUN 56 mg/dL (7-17) H 01/28/17 05:00 Creatinine 1.4 mg/dL (0.7-1.2) H 01/28/17 05:00 Estimated GFR 45 ml/min 01/28/17 05:00 BUN/Creatinine Ratio 40.00 % 01/28/17 05:00 Glucose 225 mg/dL (65-100) H 01/28/17 05:00 POC Glucose 236 (70-105) H 01/28/17 04:00 Osmolality 298 Mosm/kg 01/22/17 13:00 Uric Acid 12.0 mg/dL (3.5-7.6) H 01/22/17 13:00 Calcium 9.4 mg/dL (8.4-10.2) 01/28/17 05:00 Magnesium 2.00 mg/dL (1.7-2.3) 01/22/17 04:00 Total Bilirubin 1.60 mg/dL (0.1-1.2) H 01/22/17 04:00 AST 25 units/L (5-40) 01/22/17 04:00 ALT 12 units/L (7-56) 01/22/17 04:00 Alkaline Phosphatase 63 units/L (35-129) 01/22/17 04:00 Total Creatine Kinase 98 units/L (30-135) 01/19/17 13:02 CK-MB (CK-2) 4.1 ng/mL (0.0-4.0) H 01/19/17 13:02 CK-MB (CK-2) Rel Index 4.1 (0-4) H 01/19/17 13:02 Troponin T 0.022 ng/mL (0.00-0.029) 01/19/17 13:02 NT-Pro-B Natriuret Pep 8400 pg/mL (0-900) H 01/15/17 09:03 Total Protein 5.6 g/dL (6.3-8.2) L 01/22/17 04:00 Albumin 2.8 g/dL (3.9-5) L 01/22/17 04:00 Albumin/Globulin Ratio 1.0 % 01/22/17 04:00 Urine Color Yellow (Yellow) 01/20/17 09:34 Urine Turbidity Clear (Clear) 01/20/17 09:34 Urine pH 5.0 (5.0-7.0) 01/20/17 09:34 Ur Specific [place] 1.006 (1.003-1.030) 01/20/17 09:34 Urine Protein <15 mg/dl mg/dL (Negative) 01/20/17 09:34 Urine Glucose (UA) Neg mg/dL (Negative) 01/20/17 09:34 Urine Ketones Neg mg/dL (Negative) 01/20/17 09:34 Urine Blood Mod (Negative) 01/20/17 09:34 Urine Nitrite Neg (Negative) 01/20/17 09:34 Urine Bilirubin Neg (Negative) 01/20/17 09:34 Urine Urobilinogen < 2.0 mg/dL (<2.0) 01/20/17 09:34 Ur Leukocyte Esterase Mod (Negative) 01/20/17 09:34 Urine WBC (Auto) 15.0 /HPF (0.0-6.0) H 01/20/17 09:34 Urine RBC (Auto) 12.0 /HPF (0.0-6.0) 01/20/17 09:34 U Epithel Cells (Auto) 2.0 /HPF (0-13.0) 01/20/17 09:34 Urine Bacteria (Auto) 1+ /HPF (Negative) 01/20/17 09:34 Amorphous Crystals Few 01/20/17 09:34 Urine Yeast (Budding) 1+ /HPF 01/20/17 09:34 Vancomycin Trough 16.5 ug/mL (5.0-20.0) 01/22/17 13:00
--- NOTE | 2017-01-28 15:24 | Progress Note ---
Assessment and Plan Assessment and Plan Imp: 1. Dilated CMP 2. Acute systolic CHF 3. CIERRA 4. Acute respiratory failure, hypoxia 5. Morbid obesity 6. s/p PEA arrest; may have aspirated 7. SIRS +/- aspiration pneumonitis +/- UTI Rec: 1. CXR shows improving CHF; wean off BIPAP as tolerated 2. Holding Lasix 2/2 CIERRA but consider resuming at some point 3. DVT PPx 4. ABX per ID 5. Beta-steven dose per cardiology 6. Cont. TFs; ST consult re: swallow 7. Needs to remain in ICU as remains critically ill on BIPAP 8. Complex patient Plan of care reviewed w/ patient, she understands/agrees Subjective Date of service: 01/28/17 Principal diagnosis: CHF exacerbation Interval history: alert in icu p 110-140 on bipap no major changes Objective Vital Signs - 12hr 01/28/17 01/28/17 01/28/17 03:23 04:00 05:00 Temperature 97.7 F Pulse Rate 141 H 108 H Pulse Rate [ 140 H From Monitor] Respiratory 20 18 Rate Blood Pressure 94/67 87/58 O2 Sat by Pulse 95 98 Oximetry 01/28/17 01/28/17 01/28/17 06:00 07:00 08:00 Temperature 97.3 F L Pulse Rate 141 H 151 H 147 H Pulse Rate [ 147 H From Monitor] Respiratory 29 H 25 H 13 Rate Blood Pressure 146/101 112/88 111/80 O2 Sat by Pulse 97 100 93 Oximetry 01/28/17 01/28/17 01/28/17 08:50 09:00 09:03 Temperature Pulse Rate 138 H 147 H Pulse Rate [ From Monitor] Respiratory 19 17 Rate Blood Pressure 100/55 100/55 O2 Sat by Pulse 100 100 100 Oximetry 01/28/17 01/28/17 01/28/17 11:42 11:43 11:53 Temperature Pulse Rate 123 H Pulse Rate [ From Monitor] Respiratory Rate Blood Pressure 107/50 O2 Sat by Pulse 100 100 Oximetry 01/28/17 01/28/17 12:00 14:23 Temperature 97.5 F L Pulse Rate 96 H Pulse Rate [ From Monitor] Respiratory Rate Blood Pressure 95/52 O2 Sat by Pulse Oximetry Constitutional: no acute distress, alert, other (obese) Eyes: non-icteric ENT: oropharynx moist Neck: supple, no JVD Effort: normal Ascultation: Bilateral: clear (anteriorly), diminished breath sounds (bases), rhonchi (bilateral) Cardiovascular: irregular rhythm (tachy), other (tachy ) Gastrointestinal: normoactive bowel sounds, soft, other (obese) Integumentary: normal Extremities: no cyanosis, no edema, pink and warm, other (SCD's ) Neurologic: normal mental status, non-focal exam, pupils equal and round Psychiatric: mood appropriate, affect normal CBC and BMP: 01/28/17 05:00 01/28/17 05:00 ABG, PT/INR, D-dimer: ABG POC ABG pH 7.317 (7.35-7.45) L 01/23/17 16:51 POC ABG pCO2 49.6 (35-45) H 01/23/17 16:51 POC ABG pO2 93 (80-105) 01/23/17 16:51 POC ABG HCO3 25.4 01/23/17 16:51 POC ABG Total CO2 27 01/23/17 16:51 POC ABG O2 Sat 96 01/23/17 16:51 Abnormal lab findings: Abnormal Labs 01/15/17 01/15/17 01/15/17 17:45 22:06 23:40 WBC RDW 18.6 H Plt Count 114 L Lymph % (Auto) Wirt % (Auto) Eos % (Auto) Baso % (Auto) Lymph # Wirt # Seg Neutrophils % Seg Neuts % (Manual) 82.0 H Lymphocytes % (Manual) 7.0 L Monocytes % (Manual) Eosinophils % (Manual) Seg Neutrophils # Lymphocytes # (Manual) 0.4 L Monocytes # (Manual) POC ABG pH POC ABG pCO2 POC ABG pO2 Sodium Potassium Chloride Carbon Dioxide BUN Creatinine Glucose POC Glucose 147 H 135 H Uric Acid Calcium Total Bilirubin Alkaline Phosphatase CK-MB (CK-2) CK-MB (CK-2) Rel Index Total Protein Albumin Urine WBC (Auto) 01/15/17 01/16/17 01/16/17 23:40 03:44 08:49 WBC RDW Plt Count Lymph % (Auto) Wirt % (Auto) Eos % (Auto) Baso % (Auto) Lymph # Wirt # Seg Neutrophils % Seg Neuts % (Manual) Lymphocytes % (Manual) Monocytes % (Manual) Eosinophils % (Manual) Seg Neutrophils # Lymphocytes # (Manual) Monocytes # (Manual) POC ABG pH POC ABG pCO2 POC ABG pO2 Sodium 132 L Potassium 5.1 H Chloride 95.5 L Carbon Dioxide 20 L BUN 36 H Creatinine Glucose 128 H POC Glucose 117 H 126 H Uric Acid Calcium Total Bilirubin Alkaline Phosphatase CK-MB (CK-2) CK-MB (CK-2) Rel Index Total Protein Albumin Urine WBC (Auto) 01/16/17 01/16/17 01/16/17 08:56 08:56 12:06 WBC RDW 19.2 H Plt Count Lymph % (Auto) 6.6 L Wirt % (Auto) 12.0 H Eos % (Auto) 5.8 H Baso % (Auto) 1.9 H Lymph # 0.3 L Wirt # Seg Neutrophils % 73.7 H Seg Neuts % (Manual) Lymphocytes % (Manual) Monocytes % (Manual) Eosinophils % (Manual) Seg Neutrophils # Lymphocytes # (Manual) Monocytes # (Manual) POC ABG pH POC ABG pCO2 POC ABG pO2 Sodium 132 L Potassium Chloride 95.1 L Carbon Dioxide 19 L BUN 36 H Creatinine 1.3 H Glucose 129 H POC Glucose 172 H Uric Acid Calcium Total Bilirubin 1.40 H Alkaline Phosphatase CK-MB (CK-2) CK-MB (CK-2) Rel Index Total Protein 6.2 L Albumin 3.1 L Urine WBC (Auto) 01/16/17 01/17/17 01/17/17 22:34 05:29 05:29 WBC RDW 19.2 H Plt Count Lymph % (Auto) 5.9 L Wirt % (Auto) 10.8 H Eos % (Auto) Baso % (Auto) Lymph # 0.4 L Wirt # Seg Neutrophils % 80.1 H Seg Neuts % (Manual) Lymphocytes % (Manual) Monocytes % (Manual) Eosinophils % (Manual) Seg Neutrophils # Lymphocytes # (Manual) Monocytes # (Manual) POC ABG pH POC ABG pCO2 POC ABG pO2 Sodium 131 L Potassium 5.3 H Chloride 94.8 L Carbon Dioxide 21 L BUN 39 H Creatinine 1.4 H Glucose 196 H POC Glucose 210 H Uric Acid Calcium Total Bilirubin Alkaline Phosphatase CK-MB (CK-2) CK-MB (CK-2) Rel Index Total Protein Albumin Urine WBC (Auto) 01/17/17 01/17/17 01/17/17 07:39 17:39 22:45 WBC RDW Plt Count Lymph % (Auto) Wirt % (Auto) Eos % (Auto) Baso % (Auto) Lymph # Wirt # Seg Neutrophils % Seg Neuts % (Manual) Lymphocytes % (Manual) Monocytes % (Manual) Eosinophils % (Manual) Seg Neutrophils # Lymphocytes # (Manual) Monocytes # (Manual) POC ABG pH POC ABG pCO2 POC ABG pO2 Sodium Potassium Chloride Carbon Dioxide BUN Creatinine Glucose POC Glucose 198 H 208 H 223 H Uric Acid Calcium Total Bilirubin Alkaline Phosphatase CK-MB (CK-2) CK-MB (CK-2) Rel Index Total Protein Albumin Urine WBC (Auto) 01/18/17 01/18/17 01/18/17 05:07 08:32 12:24 WBC RDW Plt Count Lymph % (Auto) Wirt % (Auto) Eos % (Auto) Baso % (Auto) Lymph # Wirt # Seg Neutrophils % Seg Neuts % (Manual) Lymphocytes % (Manual) Monocytes % (Manual) Eosinophils % (Manual) Seg Neutrophils # Lymphocytes # (Manual) Monocytes # (Manual) POC ABG pH POC ABG pCO2 POC ABG pO2 Sodium 129 L Potassium 5.2 H Chloride 92.0 L Carbon Dioxide BUN 41 H Creatinine 1.5 H Glucose 228 H POC Glucose 236 H 230 H Uric Acid Calcium Total Bilirubin Alkaline Phosphatase CK-MB (CK-2) CK-MB (CK-2) Rel Index Total Protein Albumin Urine WBC (Auto) 01/18/17 01/19/17 01/19/17 16:00 03:46 03:46 WBC RDW 18.9 H Plt Count Lymph % (Auto) Wirt % (Auto) Eos % (Auto) Baso % (Auto) Lymph # Wirt # Seg Neutrophils % Seg Neuts % (Manual) Lymphocytes % (Manual) Monocytes % (Manual) Eosinophils % (Manual) Seg Neutrophils # Lymphocytes # (Manual) Monocytes # (Manual) POC ABG pH POC ABG pCO2 POC ABG pO2 Sodium 128 L Potassium Chloride 92.3 L Carbon Dioxide 21 L BUN 40 H Creatinine 1.4 H Glucose 178 H POC Glucose 253 H Uric Acid Calcium Total Bilirubin Alkaline Phosphatase CK-MB (CK-2) CK-MB (CK-2) Rel Index Total Protein Albumin Urine WBC (Auto) 01/19/17 01/19/17 01/19/17 09:21 11:45 13:02 WBC RDW Plt Count Lymph % (Auto) Wirt % (Auto) Eos % (Auto) Baso % (Auto) Lymph # Wirt # Seg Neutrophils % Seg Neuts % (Manual) Lymphocytes % (Manual) Monocytes % (Manual) Eosinophils % (Manual) Seg Neutrophils # Lymphocytes # (Manual) Monocytes # (Manual) POC ABG pH POC ABG pCO2 POC ABG pO2 Sodium 131 L Potassium Chloride 92.8 L Carbon Dioxide BUN 39 H Creatinine 1.4 H Glucose 159 H POC Glucose 135 H 125 H Uric Acid Calcium Total Bilirubin Alkaline Phosphatase CK-MB (CK-2) 4.1 H CK-MB (CK-2) Rel Index 4.1 H Total Protein Albumin Urine WBC (Auto) 01/19/17 01/20/17 01/20/17 15:48 04:00 05:45 WBC 11.5 H RDW 18.9 H Plt Count 131 L Lymph % (Auto) Wirt % (Auto) Eos % (Auto) Baso % (Auto) Lymph # Wirt # Seg Neutrophils % Seg Neuts % (Manual) Lymphocytes % (Manual) Monocytes % (Manual) Eosinophils % (Manual) Seg Neutrophils # Lymphocytes # (Manual) Monocytes # (Manual) POC ABG pH POC ABG pCO2 POC ABG pO2 189 H Sodium 129 L Potassium Chloride 91.4 L Carbon Dioxide BUN 37 H Creatinine 1.3 H Glucose POC Glucose Uric Acid Calcium Total Bilirubin Alkaline Phosphatase CK-MB (CK-2) CK-MB (CK-2) Rel Index Total Protein Albumin Urine WBC (Auto) 01/20/17 01/20/17 01/21/17 06:09 09:34 00:26 WBC RDW Plt Count Lymph % (Auto) Wirt % (Auto) Eos % (Auto) Baso % (Auto) Lymph # Wirt # Seg Neutrophils % Seg Neuts % (Manual) Lymphocytes % (Manual) Monocytes % (Manual) Eosinophils % (Manual) Seg Neutrophils # Lymphocytes # (Manual) Monocytes # (Manual) POC ABG pH POC ABG pCO2 POC ABG pO2 67 L Sodium Potassium Chloride Carbon Dioxide BUN Creatinine Glucose POC Glucose 109 H Uric Acid Calcium Total Bilirubin Alkaline Phosphatase CK-MB (CK-2) CK-MB (CK-2) Rel Index Total Protein Albumin Urine WBC (Auto) 15.0 H 01/21/17 01/21/17 01/21/17 04:23 05:20 05:20 WBC 11.8 H RDW 18.9 H Plt Count 135 L Lymph % (Auto) Wirt % (Auto) Eos % (Auto) Baso % (Auto) Lymph # Wirt # Seg Neutrophils % Seg Neuts % (Manual) Lymphocytes % (Manual) Monocytes % (Manual) Eosinophils % (Manual) Seg Neutrophils # Lymphocytes # (Manual) Monocytes # (Manual) POC ABG pH 7.338 L POC ABG pCO2 48.6 H POC ABG pO2 67 L Sodium 134 L Potassium Chloride 95.5 L Carbon Dioxide BUN 38 H Creatinine 1.5 H Glucose 110 H POC Glucose Uric Acid Calcium Total Bilirubin Alkaline Phosphatase CK-MB (CK-2) CK-MB (CK-2) Rel Index Total Protein Albumin Urine WBC (Auto) 01/21/17 01/21/17 01/21/17 05:38 18:20 22:54 WBC RDW Plt Count Lymph % (Auto) Wirt % (Auto) Eos % (Auto) Baso % (Auto) Lymph # Wirt # Seg Neutrophils % Seg Neuts % (Manual) Lymphocytes % (Manual) Monocytes % (Manual) Eosinophils % (Manual) Seg Neutrophils # Lymphocytes # (Manual) Monocytes # (Manual) POC ABG pH POC ABG pCO2 POC ABG pO2 Sodium Potassium Chloride Carbon Dioxide BUN Creatinine Glucose POC Glucose 120 H 135 H 163 H Uric Acid Calcium Total Bilirubin Alkaline Phosphatase CK-MB (CK-2) CK-MB (CK-2) Rel Index Total Protein Albumin Urine WBC (Auto) 01/22/17 01/22/17 01/22/17 04:00 04:00 11:27 WBC 11.6 H RDW 18.7 H Plt Count 116 L Lymph % (Auto) 2.9 L Wirt % (Auto) 11.1 H Eos % (Auto) Baso % (Auto) Lymph # 0.3 L Wirt # 1.3 H Seg Neutrophils % 84.2 H Seg Neuts % (Manual) Lymphocytes % (Manual) Monocytes % (Manual) Eosinophils % (Manual) Seg Neutrophils # 9.8 H Lymphocytes # (Manual) Monocytes # (Manual) POC ABG pH POC ABG pCO2 POC ABG pO2 Sodium 135 L Potassium Chloride 94.6 L Carbon Dioxide BUN 43 H Creatinine 1.9 H Glucose 148 H POC Glucose 151 H Uric Acid Calcium Total Bilirubin 1.60 H Alkaline Phosphatase CK-MB (CK-2) CK-MB (CK-2) Rel Index Total Protein 5.6 L Albumin 2.8 L Urine WBC (Auto) 01/22/17 01/22/17 01/22/17 11:37 13:00 17:14 WBC RDW Plt Count Lymph % (Auto) Wirt % (Auto) Eos % (Auto) Baso % (Auto) Lymph # Wirt # Seg Neutrophils % Seg Neuts % (Manual) Lymphocytes % (Manual) Monocytes % (Manual) Eosinophils % (Manual) Seg Neutrophils # Lymphocytes # (Manual) Monocytes # (Manual) POC ABG pH POC ABG pCO2 45.2 H POC ABG pO2 Sodium Potassium Chloride Carbon Dioxide BUN Creatinine Glucose POC Glucose 178 H Uric Acid 12.0 H Calcium Total Bilirubin Alkaline Phosphatase CK-MB (CK-2) CK-MB (CK-2) Rel Index Total Protein Albumin Urine WBC (Auto) 01/22/17 01/23/17 01/23/17 23:33 04:10 04:10 WBC RDW 19.1 H Plt Count Lymph % (Auto) 3.3 L Wirt % (Auto) 11.5 H Eos % (Auto) Baso % (Auto) Lymph # 0.3 L Wirt # 1.2 H Seg Neutrophils % 83.9 H Seg Neuts % (Manual) Lymphocytes % (Manual) Monocytes % (Manual) Eosinophils % (Manual) Seg Neutrophils # 8.4 H Lymphocytes # (Manual) Monocytes # (Manual) POC ABG pH POC ABG pCO2 POC ABG pO2 Sodium 134 L Potassium Chloride 95.1 L Carbon Dioxide BUN 48 H Creatinine 2.0 H Glucose 197 H POC Glucose 202 H Uric Acid Calcium Total Bilirubin Alkaline Phosphatase CK-MB (CK-2) CK-MB (CK-2) Rel Index Total Protein Albumin Urine WBC (Auto) 01/23/17 01/23/17 01/23/17 05:19 12:16 16:51 WBC RDW Plt Count Lymph % (Auto) Wirt % (Auto) Eos % (Auto) Baso % (Auto) Lymph # Wirt # Seg Neutrophils % Seg Neuts % (Manual) Lymphocytes % (Manual) Monocytes % (Manual) Eosinophils % (Manual) Seg Neutrophils # Lymphocytes # (Manual) Monocytes # (Manual) POC ABG pH 7.317 L POC ABG pCO2 49.6 H POC ABG pO2 Sodium Potassium Chloride Carbon Dioxide BUN Creatinine Glucose POC Glucose 186 H 146 H Uric Acid Calcium Total Bilirubin Alkaline Phosphatase CK-MB (CK-2) CK-MB (CK-2) Rel Index Total Protein Albumin Urine WBC (Auto) 01/23/17 01/23/17 01/24/17 17:24 23:57 05:12 WBC RDW Plt Count Lymph % (Auto) Wirt % (Auto) Eos % (Auto) Baso % (Auto) Lymph # Wirt # Seg Neutrophils % Seg Neuts % (Manual) Lymphocytes % (Manual) Monocytes % (Manual) Eosinophils % (Manual) Seg Neutrophils # Lymphocytes # (Manual) Monocytes # (Manual) POC ABG pH POC ABG pCO2 POC ABG pO2 Sodium Potassium Chloride Carbon Dioxide BUN Creatinine Glucose POC Glucose 176 H 212 H 215 H Uric Acid Calcium Total Bilirubin Alkaline Phosphatase CK-MB (CK-2) CK-MB (CK-2) Rel Index Total Protein Albumin Urine WBC (Auto) 01/24/17 01/24/17 01/24/17 05:44 07:50 12:14 WBC RDW Plt Count Lymph % (Auto) Wirt % (Auto) Eos % (Auto) Baso % (Auto) Lymph # Wirt # Seg Neutrophils % Seg Neuts % (Manual) Lymphocytes % (Manual) Monocytes % (Manual) Eosinophils % (Manual) Seg Neutrophils # Lymphocytes # (Manual) Monocytes # (Manual) POC ABG pH POC ABG pCO2 POC ABG pO2 Sodium 136 L D Potassium 2.0 L* D Chloride 120.0 H 97.9 L Carbon Dioxide 15 L D BUN 34 H 54 H Creatinine 1.9 H D Glucose 138 H 205 H POC Glucose 210 H Uric Acid Calcium 4.8 L* D Total Bilirubin Alkaline Phosphatase 33 L CK-MB (CK-2) CK-MB (CK-2) Rel Index Total Protein 3.0 L D Albumin 1.4 L Urine WBC (Auto) 01/24/17 01/24/17 01/24/17 16:54 23:35 Unknown WBC RDW 18.6 H Plt Count 138 L Lymph % (Auto) Wirt % (Auto) Eos % (Auto) Baso % (Auto) Lymph # Wirt # Seg Neutrophils % Seg Neuts % (Manual) 71.0 H Lymphocytes % (Manual) 5.0 L Monocytes % (Manual) 18.0 H Eosinophils % (Manual) 5.0 H Seg Neutrophils # Lymphocytes # (Manual) 0.4 L Monocytes # (Manual) 1.3 H POC ABG pH POC ABG pCO2 POC ABG pO2 Sodium Potassium Chloride Carbon Dioxide BUN Creatinine Glucose POC Glucose 227 H 260 H Uric Acid Calcium Total Bilirubin Alkaline Phosphatase CK-MB (CK-2) CK-MB (CK-2) Rel Index Total Protein Albumin Urine WBC (Auto) 01/25/17 01/25/17 01/25/17 05:52 07:54 07:54 WBC RDW 18.9 H Plt Count Lymph % (Auto) Wirt % (Auto) Eos % (Auto) Baso % (Auto) Lymph # Wirt # Seg Neutrophils % Seg Neuts % (Manual) Lymphocytes % (Manual) Monocytes % (Manual) Eosinophils % (Manual) Seg Neutrophils # Lymphocytes # (Manual) Monocytes # (Manual) POC ABG pH POC ABG pCO2 POC ABG pO2 Sodium 135 L Potassium Chloride 97.0 L Carbon Dioxide BUN 55 H Creatinine 1.6 H Glucose 235 H POC Glucose 226 H Uric Acid Calcium Total Bilirubin Alkaline Phosphatase CK-MB (CK-2) CK-MB (CK-2) Rel Index Total Protein Albumin Urine WBC (Auto) 01/25/17 01/25/17 01/25/17 11:38 17:15 23:21 WBC RDW Plt Count Lymph % (Auto) Wirt % (Auto) Eos % (Auto) Baso % (Auto) Lymph # Wirt # Seg Neutrophils % Seg Neuts % (Manual) Lymphocytes % (Manual) Monocytes % (Manual) Eosinophils % (Manual) Seg Neutrophils # Lymphocytes # (Manual) Monocytes # (Manual) POC ABG pH POC ABG pCO2 POC ABG pO2 Sodium Potassium Chloride Carbon Dioxide BUN Creatinine Glucose POC Glucose 226 H 249 H 245 H Uric Acid Calcium Total Bilirubin Alkaline Phosphatase CK-MB (CK-2) CK-MB (CK-2) Rel Index Total Protein Albumin Urine WBC (Auto) 01/26/17 01/26/17 01/26/17 05:27 12:52 18:16 WBC RDW Plt Count Lymph % (Auto) Wirt % (Auto) Eos % (Auto) Baso % (Auto) Lymph # Wirt # Seg Neutrophils % Seg Neuts % (Manual) Lymphocytes % (Manual) Monocytes % (Manual) Eosinophils % (Manual) Seg Neutrophils # Lymphocytes # (Manual) Monocytes # (Manual) POC ABG pH POC ABG pCO2 POC ABG pO2 Sodium Potassium Chloride Carbon Dioxide BUN Creatinine Glucose POC Glucose 244 H 231 H 231 H Uric Acid Calcium Total Bilirubin Alkaline Phosphatase CK-MB (CK-2) CK-MB (CK-2) Rel Index Total Protein Albumin Urine WBC (Auto) 01/26/17 01/26/17 01/27/17 18:18 23:33 04:45 WBC RDW 18.6 H Plt Count Lymph % (Auto) 4.6 L Wirt % (Auto) 13.6 H Eos % (Auto) 4.4 H Baso % (Auto) Lymph # 0.4 L Wirt # 1.1 H Seg Neutrophils % 76.5 H Seg Neuts % (Manual) Lymphocytes % (Manual) Monocytes % (Manual) Eosinophils % (Manual) Seg Neutrophils # Lymphocytes # (Manual) Monocytes # (Manual) POC ABG pH POC ABG pCO2 POC ABG pO2 Sodium Potassium Chloride Carbon Dioxide BUN Creatinine Glucose POC Glucose 191 H 202 H Uric Acid Calcium Total Bilirubin Alkaline Phosphatase CK-MB (CK-2) CK-MB (CK-2) Rel Index Total Protein Albumin Urine WBC (Auto) 01/27/17 01/27/17 01/27/17 04:45 05:36 12:24 WBC RDW Plt Count Lymph % (Auto) Wirt % (Auto) Eos % (Auto) Baso % (Auto) Lymph # Wirt # Seg Neutrophils % Seg Neuts % (Manual) Lymphocytes % (Manual) Monocytes % (Manual) Eosinophils % (Manual) Seg Neutrophils # Lymphocytes # (Manual) Monocytes # (Manual) POC ABG pH POC ABG pCO2 POC ABG pO2 Sodium Potassium Chloride Carbon Dioxide BUN 54 H Creatinine Glucose 202 H POC Glucose 202 H 219 H Uric Acid Calcium Total Bilirubin Alkaline Phosphatase CK-MB (CK-2) CK-MB (CK-2) Rel Index Total Protein Albumin Urine WBC (Auto) 01/27/17 01/27/17 01/28/17 17:44 23:38 04:00 WBC RDW Plt Count Lymph % (Auto) Wirt % (Auto) Eos % (Auto) Baso % (Auto) Lymph # Wirt # Seg Neutrophils % Seg Neuts % (Manual) Lymphocytes % (Manual) Monocytes % (Manual) Eosinophils % (Manual) Seg Neutrophils # Lymphocytes # (Manual) Monocytes # (Manual) POC ABG pH POC ABG pCO2 POC ABG pO2 Sodium Potassium Chloride Carbon Dioxide BUN Creatinine Glucose POC Glucose 237 H 253 H 236 H Uric Acid Calcium Total Bilirubin Alkaline Phosphatase CK-MB (CK-2) CK-MB (CK-2) Rel Index Total Protein Albumin Urine WBC (Auto) 01/28/17 01/28/17 05:00 05:00 WBC RDW 18.6 H Plt Count Lymph % (Auto) 4.8 L Wirt % (Auto) 13.0 H Eos % (Auto) 4.8 H Baso % (Auto) Lymph # 0.4 L Wirt # 1.2 H Seg Neutrophils % 76.3 H Seg Neuts % (Manual) Lymphocytes % (Manual) Monocytes % (Manual) Eosinophils % (Manual) Seg Neutrophils # Lymphocytes # (Manual) Monocytes # (Manual) POC ABG pH POC ABG pCO2 POC ABG pO2 Sodium 136 L Potassium Chloride Carbon Dioxide BUN 56 H Creatinine 1.4 H Glucose 225 H POC Glucose Uric Acid Calcium Total Bilirubin Alkaline Phosphatase CK-MB (CK-2) CK-MB (CK-2) Rel Index Total Protein Albumin Urine WBC (Auto) Chest x-ray: image reviewed (cardiomeg chf )
[2017-01-28] MEDS: ZOCOR PO SCH (22:11)
[2017-01-29] MEDS: NOVOLOG SUB-Q SCH ×5 (00:09→18:14)
[2017-01-29] MEDS: HEPARIN SUB-Q SCH ×3 (05:24→22:25)
[2017-01-29 05:45] LABS: Basophils % (Auto) 0.7 % (0.0-1.8); Hematocrit 38.3 % (30.3-42.9); Hemoglobin 12.5 gm/dl (10.1-14.3); Mean Corpuscular HGB Conc 33 % (30-34); Mean Corpuscular Hemoglobin 28 pg (28-32); Mean Corpuscular Volume 87 fl (79-97); Platelet Count 158 K/mm3 (140-440); Red Cell Distribution Width 18.6 % (13.2-15.2)
[2017-01-29 06:04] LABS: BUN/Creatinine Ratio 36.87; Calcium 9.9 mg/dL (8.4-10.2); Chloride 97.9 mmol/L (98-107); Potassium 4.3 mmol/L (3.6-5.0)
[2017-01-29] MEDS: PEPCID PO SCH ×3 (09:20→22:25)
[2017-01-29] MEDS: LOPRESSOR PO SCH ×4 (09:20→20:35)
[2017-01-29] MEDS: LEVEMIR SUB-Q SCH (09:21)
[2017-01-29] MEDS: BABY ASPIRIN PO SCH ×2 (09:21→12:00)
[2017-01-29] MEDS: PANCREAZE DR 10,500 UNIT FEEDTUBE PRN ×2 (09:56→11:22)
[2017-01-29] MEDS: SODIUM BICARBONATE FEEDTUBE PRN ×2 (09:56→11:22)
--- NOTE | 2017-01-29 09:58 | Progress Note ---
Assessment and Plan Would order a stat serum magnesium level and it'll be followed up. I ordered for intravenous amiodarone infusion 1 mg/mt. Prognosis is guarded. - Patient Problems (1) Morbid obesity with BMI of 50.0-59.9, adult Current Visit: Yes Status: Chronic (2) Acute exacerbation of CHF (congestive heart failure) Current Visit: Yes Status: Acute Qualifiers: Congestive heart failure type: combined Qualified Code(s): I50.43 - Acute on chronic combined systolic (congestive) and diastolic (congestive) heart failure (3) Aspiration pneumonia Current Visit: Yes Status: Acute Qualifiers: Aspiration pneumonia type: A Laterality: L Lung location: L (4) Junctional cardiac arrhythmia Current Visit: Yes Status: Acute (5) GERD (gastroesophageal reflux disease) Current Visit: Yes Status: Chronic Qualifiers: Esophagitis presence: without esophagitis Qualified Code(s): K21.9 - Gastro -esophageal reflux disease without esophagitis (6) HTN (hypertension) Current Visit: Yes Status: Chronic Qualifiers: Hypertension type: essential hypertension Qualified Code(s): I10 - Essential (primary) hypertension (7) Acute and chronic respiratory failure Current Visit: No Status: Acute Qualifiers: Respiratory failure complication: R (8) Asthma exacerbation Current Visit: No Status: Acute (9) Sleep apnea Current Visit: No Status: Chronic Qualifiers: Sleep apnea type: S Subjective Date of service: 01/29/17 Principal diagnosis: CHF exacerbation Interval history: Patient is awake, alert and responds to commands and questions. The Dobbhoff tube is blocked and the feeding was stopped she didn't get her by mouth medications and the monitor reveals serum tachycardia with a heart rate 140- 150 bpm with an ( SVT or SVT with aberrancy) Her potassium is normal blood pressure is stable Objective Vital Signs Temp Pulse Pulse Pulse Pulse Pulse Pulse 01/29/17 09:20 118 H 01/29/17 07:36 97.7 F 01/29/17 07:15 01/29/17 07:00 146 H 01/29/17 06:01 143 H 01/29/17 05:01 124 H 01/29/17 04:01 147 H 01/29/17 04:00 112 H 112 H 112 H 112 H 112 H 01/29/17 03:55 98.4 F 01/29/17 03:01 140 H 01/29/17 02:00 139 H 01/29/17 01:01 142 H 01/29/17 00:15 134 H 01/29/17 00:00 137 H 78 78 78 78 78 01/28/17 23:07 98.2 F 01/28/17 23:00 135 H 01/28/17 22:14 145 H 01/28/17 22:10 129 H 01/28/17 22:09 133 H 01/28/17 22:01 100 H 01/28/17 21:00 143 H 01/28/17 20:00 151 H 123 H 123 H 123 H 123 H 123 H 01/28/17 19:52 01/28/17 19:26 98.1 F 01/28/17 19:01 143 H 01/28/17 18:01 106 H 01/28/17 18:00 106 H 01/28/17 17:14 01/28/17 17:01 142 H 01/28/17 16:00 97.6 F 108 H 108 H 01/28/17 15:01 105 H 01/28/17 14:23 96 H 01/28/17 14:00 97 H 01/28/17 13:00 144 H 01/28/17 12:00 97.5 F L 114 H 114 H 01/28/17 11:53 123 H 01/28/17 11:43 01/28/17 11:42 01/28/17 11:00 151 H 01/28/17 10:00 110 H Pulse Resp BP Pulse Ox 01/29/17 09:20 98/80 01/29/17 07:36 01/29/17 07:15 100 01/29/17 07:00 22 119/76 100 01/29/17 06:01 21 120/68 95 01/29/17 05:01 22 119/80 100 01/29/17 04:01 23 136/101 90 01/29/17 04:00 112 H 21 98 01/29/17 03:55 01/29/17 03:01 18 113/71 99 01/29/17 02:00 18 107/47 01/29/17 01:01 20 117/74 98 01/29/17 00:15 01/29/17 00:00 78 15 109/71 99 01/28/17 23:07 01/28/17 23:00 17 104/57 99 01/28/17 22:14 17 98/70 99 01/28/17 22:10 118/92 01/28/17 22:09 20 98/70 99 01/28/17 22:01 19 98/70 91 01/28/17 21:00 21 111/72 98 01/28/17 20:00 123 H 29 H 113/66 98 01/28/17 19:52 99 01/28/17 19:26 01/28/17 19:01 119/93 99 01/28/17 18:01 101/76 97 01/28/17 18:00 01/28/17 17:14 98 01/28/17 17:01 87/46 99 01/28/17 16:00 20 91/62 96 01/28/17 15:01 95/52 95 01/28/17 14:23 95/52 01/28/17 14:00 16 77/47 99 01/28/17 13:00 20 88/38 99 01/28/17 12:00 17 107/50 100 01/28/17 11:53 107/50 01/28/17 11:43 100 01/28/17 11:42 100 01/28/17 11:00 19 114/58 100 01/28/17 10:00 17 110/81 100 - Physical Examination General: Appears Well, No Apparent Distress HEENT: Positive: PERRL, EOMI, Normocephaly Neck: Positive: neck supple, trachea midline. Negative: JVD/HJR Cardiac: Positive: Tachycardia Lungs: Positive: No Wheeze, Rales, Rhonchi Neuro: Positive: Grossly Intact Abdomen: Positive: Unremarkable, Soft, Active Bowel Sounds Skin: Negative: Rash, Suspicious Lesions Musculoskeletal: No Fluid Collection, No Pain Extremities: Present: edema (trace BLE ), warm, Other (chronic venous stasis changes) - Labs and Meds CBC 01/29/17 Range/Units 05:30 WBC 8.0 (4.5-11.0) K/mm3 RBC 4.40 (3.65-5.03) M/mm3 Hgb 12.5 (10.1-14.3) gm/dl Hct 38.3 (30.3-42.9) % Plt Count 158 (140-440) K/mm3 Lymph # 0.3 L (1.2-5.4) K/mm3 Campbell # 1.0 H (0.0-0.8) K/mm3 Eos # 0.4 (0.0-0.4) K/mm3 Baso # 0.1 (0.0-0.1) K/mm3 Comprehensive Metabolic Panel 01/29/17 Range/Units 05:30 Sodium 137 (137-145) mmol/L Potassium 4.3 (3.6-5.0) mmol/L Chloride 97.9 L (98-107) mmol/L Carbon Dioxide 27 (22-30) mmol/L BUN 59 H (7-17) mg/dL Creatinine 1.6 H (0.7-1.2) mg/dL Glucose 220 H (65-100) mg/dL Calcium 9.9 (8.4-10.2) mg/dL - Imaging and Cardiology EKG: report reviewed (Tachycardia of 128/min Junctional rhythm), image reviewed Stress echo: report reviewed (Cardiac PET 11/11: very small mild anterior, anteroapical mild reversible defect. EF stress 58%) Echo: report reviewed (ECHO 11/16: TDS, EF cannot be determined due to poor image quality, ) Cardiac cath: report reviewed ([facility] 06/07: LM: patent, LCX: diffuse disease, LAD: diffuse disease, RCA: diffuse disease, mid 40%) - Telemetry EKG Rhythm: SVT - EKG Supraventricular dysrhythmia: accelerated junctional
[2017-01-29] MEDS: DIFLUCAN/NS 100 MG/50 ML 100 MG/50 ML BAG IV SCH (10:52)
[2017-01-29] MEDS: CORDARONE 900 MG in D5W 482 ML IV SCH (11:07)
--- NOTE | 2017-01-29 11:20 | Progress Note ---
Assessment and Plan Assessment: Acute kidney injury attributed to prerenal azotemia s/p PEA arrest Dilated cardiomyopathy - EF 10-15% Acute systolic heart failure Acute hypoxic respiratory failure - currently on bipap Plan: Note HR in 140-150s today; now on amiodarone gtt Rate control per cardiology Will give Lasix 40mg IV x 1 dose today Strict I/O Avoid potential nephrotoxins Dose medications for renal function Subjective Date of service: 01/29/17 Principal diagnosis: CHF exacerbation Interval history: Patient with HR in 140-150s. Objective - Vital Signs Vital signs: Vital Signs - 12hr 01/29/17 01/29/17 01/29/17 00:00 00:15 01:01 Temperature Pulse Rate 137 H 134 H 142 H Pulse Rate [ 78 Apical] Pulse Rate [ 78 From Monitor] Pulse Rate [ 78 Left Dorsalis Pedis] Pulse Rate [ 78 Left Radial] Pulse Rate [ 78 Right Dorsalis Pedis] Pulse Rate [ 78 Right Radial] Respiratory 15 20 Rate Blood Pressure 109/71 117/74 O2 Sat by Pulse 99 98 Oximetry 01/29/17 01/29/17 01/29/17 02:00 03:01 03:55 Temperature 98.4 F Pulse Rate 139 H 140 H Pulse Rate [ Apical] Pulse Rate [ From Monitor] Pulse Rate [ Left Dorsalis Pedis] Pulse Rate [ Left Radial] Pulse Rate [ Right Dorsalis Pedis] Pulse Rate [ Right Radial] Respiratory 18 18 Rate Blood Pressure 107/47 113/71 O2 Sat by Pulse 99 Oximetry 01/29/17 01/29/17 01/29/17 04:00 04:01 05:01 Temperature Pulse Rate 147 H 124 H Pulse Rate [ 112 H Apical] Pulse Rate [ 112 H From Monitor] Pulse Rate [ 112 H Left Dorsalis Pedis] Pulse Rate [ 112 H Left Radial] Pulse Rate [ 112 H Right Dorsalis Pedis] Pulse Rate [ 112 H Right Radial] Respiratory 21 23 22 Rate Blood Pressure 136/101 119/80 O2 Sat by Pulse 98 90 100 Oximetry 01/29/17 01/29/17 01/29/17 06:01 07:00 07:15 Temperature Pulse Rate 143 H 146 H Pulse Rate [ Apical] Pulse Rate [ From Monitor] Pulse Rate [ Left Dorsalis Pedis] Pulse Rate [ Left Radial] Pulse Rate [ Right Dorsalis Pedis] Pulse Rate [ Right Radial] Respiratory 21 22 Rate Blood Pressure 120/68 119/76 O2 Sat by Pulse 95 100 100 Oximetry 01/29/17 01/29/17 01/29/17 07:36 08:00 09:01 Temperature 97.7 F Pulse Rate 146 H 147 H Pulse Rate [ Apical] Pulse Rate [ From Monitor] Pulse Rate [ Left Dorsalis Pedis] Pulse Rate [ Left Radial] Pulse Rate [ Right Dorsalis Pedis] Pulse Rate [ Right Radial] Respiratory 28 H 26 H Rate Blood Pressure 119/83 98/80 O2 Sat by Pulse 97 Oximetry 01/29/17 01/29/17 09:20 10:01 Temperature Pulse Rate 118 H 148 H Pulse Rate [ Apical] Pulse Rate [ From Monitor] Pulse Rate [ Left Dorsalis Pedis] Pulse Rate [ Left Radial] Pulse Rate [ Right Dorsalis Pedis] Pulse Rate [ Right Radial] Respiratory 24 Rate Blood Pressure 98/80 104/77 O2 Sat by Pulse 98 Oximetry - General Appearance General appearance: obese EENT: ATNC, other (on Bipap) Respiratory: Present: Decreased Breath Sounds Cardiology: regular, S1S2 Gastrointestinal: obese, other (flank/abdominal wall edema) Integumentary: other (chronic venous stasis changes to LE) Musculoskeletal: other (+edema) Psychiatric: cooperative - Lab 01/29/17 05:30 01/29/17 05:30 Most recent lab results Calcium 9.9 mg/dL (8.4-10.2) 01/29/17 05:30 Magnesium 2.00 mg/dL (1.7-2.3) 01/29/17 05:30
--- NOTE | 2017-01-29 12:09 | Progress Note ---
Assessment and Plan Assessment and plan: S/p PEA cardiorespiratory arrest 01/19. s/p IV amio 150mg bolus x 1. Cardiology following. Cardiac isoenzymes negative for AMI s/p code; ECG with no ischemic changes. Patient previously on Dobutamine gtt which has now been discontinued. 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 Patient started on milrinone drip. Continue per cardiology. Cont strict I/O. The diuretics held in setting of CIERRA. Cont lopressor. ACEI/ARB held in setting of CIERRA. Aspiration PNA. Treated. Patient off antibiotics. Sepsis. Etiology secondary to pneumonia and UTI. Urine culture revealed enterococcus. Acute hypoxic respiratory failure. Etiology secondary to above. Patient currently on high flow O2. Continue BiPAP as clinically indicated. Pulmonary following. Acute renal failure. Renal function appears to be stable at present. Etiology secondary to CIERRA and vasomotor nephropathy. Nephrology following. Avoid nephrotoxic agents. Maintain MAP greater than 65. Hyponatremia. Follow-up BMP Accelerated junction arrhythmia / 1st degree AV block. Cardiology following. Cardiology started amiodarone drip. Cardiomyopathy. 01/15/2017 2D echocardiogram reported as global left ventricular systolic function is severely decreased, estimated EF is 10-15%, left atrium mildly dilated, right ventricle is mild to moderately dilated, right ventricular global systolic function is moderately reduced, right atrium is mild to moderate dilated, trace AR, no , mitral annular calcification, mild MR, no ms, moderate TR, right ventricular systolic function is calculated at 48mmhg, there is small pericardial effusion which does not appear to be hemodynamically significant NSVT. Continue medications as above per cardiology. Acute toxic metabolic encephalopathy. Resolved. Enterococcus UTI. As above. Diabetes type II, uncontrolled. Continue sliding scale and Accu-Cheks. Hypertension. Continue antihypertensive medications. Hyperlipidemia History of Breast CA Obesity History Interval history: No new issues overnight. Patient currently on Hi flow O2 Hospitalist Physical - Constitutional Vitals: Temp Pulse Resp BP Pulse Ox 97.7 F 148 H 24 104/77 98 01/29/17 11:45 01/29/17 10:01 01/29/17 10:01 01/29/17 10:01 01/29/17 10:01 General appearance: Present: well-nourished, obese, other (family present) - EENT Eyes: Present: PERRL, EOM intact ENT: hearing intact, clear oral mucosa, dentition normal - Neck Neck: Present: supple, normal ROM - Respiratory Respiratory effort: normal Respiratory: bilateral: CTA - Cardiovascular Rhythm: regular Heart Sounds: Present: S1 & S2. Absent: gallop, rub - Extremities Extremities: no ischemia, No edema, Full ROM - Abdominal General gastrointestinal: soft, non-tender, non-distended, normal bowel sounds - Integumentary Integumentary: Present: clear, warm, dry - Neurologic Neurologic: CNII-XII intact, moves all extremities Results - Labs CBC & Chem 7: 01/29/17 05:30 01/29/17 05:30 Labs: Laboratory Last Values WBC 8.0 K/mm3 (4.5-11.0) 01/29/17 05:30 RBC 4.40 M/mm3 (3.65-5.03) 01/29/17 05:30 Hgb 12.5 gm/dl (10.1-14.3) 01/29/17 05:30 Hct 38.3 % (30.3-42.9) 01/29/17 05:30 MCV 87 fl (79-97) 01/29/17 05:30 MCH 28 pg (28-32) 01/29/17 05:30 MCHC 33 % (30-34) 01/29/17 05:30 RDW 18.6 % (13.2-15.2) H 01/29/17 05:30 Plt Count 158 K/mm3 (140-440) 01/29/17 05:30 Lymph % (Auto) 4.3 % (13.4-35.0) L 01/29/17 05:30 [place] % (Auto) 11.9 % (0.0-7.3) H 01/29/17 05:30 Eos % (Auto) 5.0 % (0.0-4.3) H 01/29/17 05:30 Baso % (Auto) 0.7 % (0.0-1.8) 01/29/17 05:30 Lymph # 0.3 K/mm3 (1.2-5.4) L 01/29/17 05:30 [place] # 1.0 K/mm3 (0.0-0.8) H 01/29/17 05:30 Eos # 0.4 K/mm3 (0.0-0.4) 01/29/17 05:30 Baso # 0.1 K/mm3 (0.0-0.1) 01/29/17 05:30 Add Manual Diff Complete 01/24/17 Unknown Total Counted 100 01/24/17 Unknown Seg Neutrophils % 78.1 % (40.0-70.0) H 01/29/17 05:30 Seg Neuts % (Manual) 71.0 % (40.0-70.0) H 01/24/17 Unknown Band Neutrophils % 0 % 01/24/17 Unknown Lymphocytes % (Manual) 5.0 % (13.4-35.0) L 01/24/17 Unknown Reactive Lymphs % (Man) 0 % 01/24/17 Unknown Monocytes % (Manual) 18.0 % (0.0-7.3) H 01/24/17 Unknown Eosinophils % (Manual) 5.0 % (0.0-4.3) H 01/24/17 Unknown Basophils % (Manual) 1.0 % (0.0-1.8) 01/24/17 Unknown Metamyelocytes % 0 % 01/24/17 Unknown Myelocytes % 0 % 01/24/17 Unknown Promyelocytes % 0 % 01/24/17 Unknown Blast Cells % 0 % 01/24/17 Unknown Nucleated RBC % Not Reportable 01/24/17 Unknown Seg Neutrophils # 6.3 K/mm3 (1.8-7.7) 01/29/17 05:30 Seg Neutrophils # Man 5.1 K/mm3 (1.8-7.7) 01/24/17 Unknown Band Neutrophils # 0.0 K/mm3 01/24/17 Unknown Lymphocytes # (Manual) 0.4 K/mm3 (1.2-5.4) L 01/24/17 Unknown Abs React Lymphs (Man) 0.0 K/mm3 01/24/17 Unknown Monocytes # (Manual) 1.3 K/mm3 (0.0-0.8) H 01/24/17 Unknown Eosinophils # (Manual) 0.4 K/mm3 (0.0-0.4) 01/24/17 Unknown Basophils # (Manual) 0.1 K/mm3 (0.0-0.1) 01/24/17 Unknown Metamyelocytes # 0.0 K/mm3 01/24/17 Unknown Myelocytes # 0.0 K/mm3 01/24/17 Unknown Promyelocytes # 0.0 K/mm3 01/24/17 Unknown Blast Cells # 0.0 K/mm3 01/24/17 Unknown WBC Morphology Not Reportable 01/24/17 Unknown Hypersegmented Neuts Not Reportable 01/24/17 Unknown Hyposegmented Neuts Not Reportable 01/24/17 Unknown Hypogranular Neuts Not Reportable 01/24/17 Unknown Smudge Cells Not Reportable 01/24/17 Unknown Toxic Granulation Not Reportable 01/24/17 Unknown Toxic Vacuolation Not Reportable 01/24/17 Unknown Dohle Bodies Not Reportable 01/24/17 Unknown Pelger-Huet Anomaly Not Reportable 01/24/17 Unknown Yusuf Rods Not Reportable 01/24/17 Unknown Platelet Estimate Consistent w auto 01/24/17 Unknown Clumped Platelets Not Reportable 01/24/17 Unknown Plt Clumps, EDTA Not Reportable 01/24/17 Unknown Large Platelets Not Reportable 01/24/17 Unknown Giant Platelets Not Reportable 01/24/17 Unknown Platelet Satelliting Not Reportable 01/24/17 Unknown Plt Morphology Comment Not Reportable 01/24/17 Unknown RBC Morphology Normal 01/24/17 Unknown Dimorphic RBCs Not Reportable 01/24/17 Unknown Polychromasia Not Reportable 01/24/17 Unknown Hypochromasia Not Reportable 01/24/17 Unknown Poikilocytosis Not Reportable 01/24/17 Unknown Anisocytosis Not Reportable 01/24/17 Unknown Microcytosis Not Reportable 01/24/17 Unknown Macrocytosis Not Reportable 01/24/17 Unknown Spherocytes Not Reportable 01/24/17 Unknown Pappenheimer Bodies Not Reportable 01/24/17 Unknown Sickle Cells Not Reportable 01/24/17 Unknown Target Cells Not Reportable 01/24/17 Unknown Tear Drop Cells Not Reportable 01/24/17 Unknown Ovalocytes Not Reportable 01/24/17 Unknown Helmet Cells Not Reportable 01/24/17 Unknown [place] Bodies Not Reportable 01/24/17 Unknown [place] Rings Not Reportable 01/24/17 Unknown Wally Cells Not Reportable 01/24/17 Unknown Bite Cells Not Reportable 01/24/17 Unknown Crenated Cell Not Reportable 01/24/17 Unknown Elliptocytes Not Reportable 01/24/17 Unknown Acanthocytes (Spur) Not Reportable 01/24/17 Unknown Rouleaux Not Reportable 01/24/17 Unknown Hemoglobin C Crystals Not Reportable 01/24/17 Unknown Schistocytes Not Reportable 01/24/17 Unknown Malaria parasites Not Reportable 01/24/17 Unknown Trevor Bodies Not Reportable 01/24/17 Unknown Hem Pathologist Commnt No 01/24/17 Unknown POC ABG pH 7.317 (7.35-7.45) L 01/23/17 16:51 POC ABG pCO2 49.6 (35-45) H 01/23/17 16:51 POC ABG pO2 93 (80-105) 01/23/17 16:51 POC ABG HCO3 25.4 01/23/17 16:51 POC ABG Total CO2 27 01/23/17 16:51 POC ABG O2 Sat 96 01/23/17 16:51 POC ABG Base Excess -1 01/23/17 16:51 FiO2 35 % 01/23/17 16:51 Sodium 137 mmol/L (137-145) 01/29/17 05:30 Potassium 4.3 mmol/L (3.6-5.0) 01/29/17 05:30 Chloride 97.9 mmol/L (98-107) L 01/29/17 05:30 Carbon Dioxide 27 mmol/L (22-30) 01/29/17 05:30 Anion Gap 16 mmol/L 01/29/17 05:30 BUN 59 mg/dL (7-17) H 01/29/17 05:30 Creatinine 1.6 mg/dL (0.7-1.2) H 01/29/17 05:30 Estimated GFR 38 ml/min 01/29/17 05:30 BUN/Creatinine Ratio 36.87 % 01/29/17 05:30 Glucose 220 mg/dL (65-100) H 01/29/17 05:30 POC Glucose 215 (70-105) H 01/29/17 11:20 Osmolality 298 Mosm/kg 01/22/17 13:00 Uric Acid 12.0 mg/dL (3.5-7.6) H 01/22/17 13:00 Calcium 9.9 mg/dL (8.4-10.2) 01/29/17 05:30 Magnesium 2.00 mg/dL (1.7-2.3) 01/29/17 05:30 Total Bilirubin 1.60 mg/dL (0.1-1.2) H 01/22/17 04:00 AST 25 units/L (5-40) 01/22/17 04:00 ALT 12 units/L (7-56) 01/22/17 04:00 Alkaline Phosphatase 63 units/L (35-129) 01/22/17 04:00 Total Creatine Kinase 98 units/L (30-135) 01/19/17 13:02 CK-MB (CK-2) 4.1 ng/mL (0.0-4.0) H 01/19/17 13:02 CK-MB (CK-2) Rel Index 4.1 (0-4) H 01/19/17 13:02 Troponin T 0.022 ng/mL (0.00-0.029) 01/19/17 13:02 NT-Pro-B Natriuret Pep 8400 pg/mL (0-900) H 01/15/17 09:03 Total Protein 5.6 g/dL (6.3-8.2) L 01/22/17 04:00 Albumin 2.8 g/dL (3.9-5) L 01/22/17 04:00 Albumin/Globulin Ratio 1.0 % 01/22/17 04:00 Urine Color Yellow (Yellow) 01/20/17 09:34 Urine Turbidity Clear (Clear) 01/20/17 09:34 Urine pH 5.0 (5.0-7.0) 01/20/17 09:34 Ur Specific [place] 1.006 (1.003-1.030) 01/20/17 09:34 Urine Protein <15 mg/dl mg/dL (Negative) 01/20/17 09:34 Urine Glucose (UA) Neg mg/dL (Negative) 01/20/17 09:34 Urine Ketones Neg mg/dL (Negative) 01/20/17 09:34 Urine Blood Mod (Negative) 01/20/17 09:34 Urine Nitrite Neg (Negative) 01/20/17 09:34 Urine Bilirubin Neg (Negative) 01/20/17 09:34 Urine Urobilinogen < 2.0 mg/dL (<2.0) 01/20/17 09:34 Ur Leukocyte Esterase Mod (Negative) 01/20/17 09:34 Urine WBC (Auto) 15.0 /HPF (0.0-6.0) H 01/20/17 09:34 Urine RBC (Auto) 12.0 /HPF (0.0-6.0) 01/20/17 09:34 U Epithel Cells (Auto) 2.0 /HPF (0-13.0) 01/20/17 09:34 Urine Bacteria (Auto) 1+ /HPF (Negative) 01/20/17 09:34 Amorphous Crystals Few 01/20/17 09:34 Urine Yeast (Budding) 1+ /HPF 01/20/17 09:34 Vancomycin Trough 16.5 ug/mL (5.0-20.0) 01/22/17 13:00
--- NOTE | 2017-01-29 14:05 | Progress Note ---
Assessment and Plan Assessment and Plan Imp: 1. Dilated CMP 2. Acute systolic CHF 3. CIERRA 4. Acute respiratory failure, hypoxia 5. Morbid obesity 6. s/p PEA arrest; may have aspirated 7. SIRS +/- aspiration pneumonitis +/- UTI 8. Enterococcus in urine infection versus colonization, suspect later Rec: 1. CXR shows improving CHF; wean off BIPAP as tolerated 2. Holding Lasix 2/2 CIERRA but consider resuming at some point 3. DVT PPx 4. ABX per ID 5. Beta-steven dose per cardiology 6. Cont. TFs, need to replace NG tube; ST consult re: swallow 7. Needs to remain in ICU as remains critically ill on BIPAP 8. Complex patient Total critical care time 31 minute Subjective Date of service: 01/29/17 Principal diagnosis: CHF exacerbation Interval history: Responsive and awake. Remain on BiPAP. Mild tachypnea. NG tube is clogged Objective Vital Signs - 12hr 01/29/17 01/29/17 01/29/17 03:01 03:55 04:00 Temperature 98.4 F Pulse Rate 140 H Pulse Rate [ 112 H Apical] Pulse Rate [ 112 H From Monitor] Pulse Rate [ 112 H Left Dorsalis Pedis] Pulse Rate [ 112 H Left Radial] Pulse Rate [ 112 H Right Dorsalis Pedis] Pulse Rate [ 112 H Right Radial] Respiratory 18 21 Rate Blood Pressure 113/71 O2 Sat by Pulse 99 98 Oximetry 01/29/17 01/29/17 01/29/17 04:01 05:01 06:01 Temperature Pulse Rate 147 H 124 H 143 H Pulse Rate [ Apical] Pulse Rate [ From Monitor] Pulse Rate [ Left Dorsalis Pedis] Pulse Rate [ Left Radial] Pulse Rate [ Right Dorsalis Pedis] Pulse Rate [ Right Radial] Respiratory 23 22 21 Rate Blood Pressure 136/101 119/80 120/68 O2 Sat by Pulse 90 100 95 Oximetry 01/29/17 01/29/17 01/29/17 07:00 07:15 07:36 Temperature 97.7 F Pulse Rate 146 H Pulse Rate [ Apical] Pulse Rate [ From Monitor] Pulse Rate [ Left Dorsalis Pedis] Pulse Rate [ Left Radial] Pulse Rate [ Right Dorsalis Pedis] Pulse Rate [ Right Radial] Respiratory 22 Rate Blood Pressure 119/76 O2 Sat by Pulse 100 100 Oximetry 01/29/17 01/29/17 01/29/17 08:00 09:01 10:01 Temperature Pulse Rate 146 H 147 H 148 H Pulse Rate [ Apical] Pulse Rate [ From Monitor] Pulse Rate [ Left Dorsalis Pedis] Pulse Rate [ Left Radial] Pulse Rate [ Right Dorsalis Pedis] Pulse Rate [ Right Radial] Respiratory 28 H 26 H 24 Rate Blood Pressure 119/83 98/80 104/77 O2 Sat by Pulse 97 98 Oximetry 01/29/17 01/29/17 01/29/17 11:01 11:45 12:00 Temperature 97.7 F Pulse Rate 145 H 80 Pulse Rate [ Apical] Pulse Rate [ From Monitor] Pulse Rate [ Left Dorsalis Pedis] Pulse Rate [ Left Radial] Pulse Rate [ Right Dorsalis Pedis] Pulse Rate [ Right Radial] Respiratory 32 H 21 Rate Blood Pressure 114/71 89/57 O2 Sat by Pulse 95 95 Oximetry Constitutional: no acute distress, alert Eyes: non-icteric ENT: other (on BiPAP) Neck: supple, no JVD Effort: normal Ascultation: Bilateral: clear, diminished breath sounds (bases), rhonchi ( bilateral), other (coarse, equal BS bilaterally) Cardiovascular: irregular rhythm Gastrointestinal: normoactive bowel sounds, soft, other (obese) Integumentary: normal Extremities: no cyanosis, no edema, pink and warm, other (SCDs are in place) Neurologic: normal mental status, non-focal exam, pupils equal and round Psychiatric: mood appropriate, affect normal CBC and BMP: 01/29/17 05:30 01/29/17 05:30 ABG, PT/INR, D-dimer: ABG POC ABG pH 7.317 (7.35-7.45) L 01/23/17 16:51 POC ABG pCO2 49.6 (35-45) H 01/23/17 16:51 POC ABG pO2 93 (80-105) 01/23/17 16:51 POC ABG HCO3 25.4 01/23/17 16:51 POC ABG Total CO2 27 01/23/17 16:51 POC ABG O2 Sat 96 01/23/17 16:51 Abnormal lab findings: Abnormal Labs 01/15/17 01/15/17 01/15/17 17:45 22:06 23:40 WBC RDW 18.6 H Plt Count 114 L Lymph % (Auto) [place] % (Auto) Eos % (Auto) Baso % (Auto) Lymph # [place] # Seg Neutrophils % Seg Neuts % (Manual) 82.0 H Lymphocytes % (Manual) 7.0 L Monocytes % (Manual) Eosinophils % (Manual) Seg Neutrophils # Lymphocytes # (Manual) 0.4 L Monocytes # (Manual) POC ABG pH POC ABG pCO2 POC ABG pO2 Sodium Potassium Chloride Carbon Dioxide BUN Creatinine Glucose POC Glucose 147 H 135 H Uric Acid Calcium Total Bilirubin Alkaline Phosphatase CK-MB (CK-2) CK-MB (CK-2) Rel Index Total Protein Albumin Urine WBC (Auto) 01/15/17 01/16/17 01/16/17 23:40 03:44 08:49 WBC RDW Plt Count Lymph % (Auto) [place] % (Auto) Eos % (Auto) Baso % (Auto) Lymph # [place] # Seg Neutrophils % Seg Neuts % (Manual) Lymphocytes % (Manual) Monocytes % (Manual) Eosinophils % (Manual) Seg Neutrophils # Lymphocytes # (Manual) Monocytes # (Manual) POC ABG pH POC ABG pCO2 POC ABG pO2 Sodium 132 L Potassium 5.1 H Chloride 95.5 L Carbon Dioxide 20 L BUN 36 H Creatinine Glucose 128 H POC Glucose 117 H 126 H Uric Acid Calcium Total Bilirubin Alkaline Phosphatase CK-MB (CK-2) CK-MB (CK-2) Rel Index Total Protein Albumin Urine WBC (Auto) 01/16/17 01/16/17 01/16/17 08:56 08:56 12:06 WBC RDW 19.2 H Plt Count Lymph % (Auto) 6.6 L [place] % (Auto) 12.0 H Eos % (Auto) 5.8 H Baso % (Auto) 1.9 H Lymph # 0.3 L [place] # Seg Neutrophils % 73.7 H Seg Neuts % (Manual) Lymphocytes % (Manual) Monocytes % (Manual) Eosinophils % (Manual) Seg Neutrophils # Lymphocytes # (Manual) Monocytes # (Manual) POC ABG pH POC ABG pCO2 POC ABG pO2 Sodium 132 L Potassium Chloride 95.1 L Carbon Dioxide 19 L BUN 36 H Creatinine 1.3 H Glucose 129 H POC Glucose 172 H Uric Acid Calcium Total Bilirubin 1.40 H Alkaline Phosphatase CK-MB (CK-2) CK-MB (CK-2) Rel Index Total Protein 6.2 L Albumin 3.1 L Urine WBC (Auto) 01/16/17 01/17/17 01/17/17 22:34 05:29 05:29 WBC RDW 19.2 H Plt Count Lymph % (Auto) 5.9 L [place] % (Auto) 10.8 H Eos % (Auto) Baso % (Auto) Lymph # 0.4 L [place] # Seg Neutrophils % 80.1 H Seg Neuts % (Manual) Lymphocytes % (Manual) Monocytes % (Manual) Eosinophils % (Manual) Seg Neutrophils # Lymphocytes # (Manual) Monocytes # (Manual) POC ABG pH POC ABG pCO2 POC ABG pO2 Sodium 131 L Potassium 5.3 H Chloride 94.8 L Carbon Dioxide 21 L BUN 39 H Creatinine 1.4 H Glucose 196 H POC Glucose 210 H Uric Acid Calcium Total Bilirubin Alkaline Phosphatase CK-MB (CK-2) CK-MB (CK-2) Rel Index Total Protein Albumin Urine WBC (Auto) 01/17/17 01/17/17 01/17/17 07:39 17:39 22:45 WBC RDW Plt Count Lymph % (Auto) [place] % (Auto) Eos % (Auto) Baso % (Auto) Lymph # [place] # Seg Neutrophils % Seg Neuts % (Manual) Lymphocytes % (Manual) Monocytes % (Manual) Eosinophils % (Manual) Seg Neutrophils # Lymphocytes # (Manual) Monocytes # (Manual) POC ABG pH POC ABG pCO2 POC ABG pO2 Sodium Potassium Chloride Carbon Dioxide BUN Creatinine Glucose POC Glucose 198 H 208 H 223 H Uric Acid Calcium Total Bilirubin Alkaline Phosphatase CK-MB (CK-2) CK-MB (CK-2) Rel Index Total Protein Albumin Urine WBC (Auto) 01/18/17 01/18/17 01/18/17 05:07 08:32 12:24 WBC RDW Plt Count Lymph % (Auto) [place] % (Auto) Eos % (Auto) Baso % (Auto) Lymph # [place] # Seg Neutrophils % Seg Neuts % (Manual) Lymphocytes % (Manual) Monocytes % (Manual) Eosinophils % (Manual) Seg Neutrophils # Lymphocytes # (Manual) Monocytes # (Manual) POC ABG pH POC ABG pCO2 POC ABG pO2 Sodium 129 L Potassium 5.2 H Chloride 92.0 L Carbon Dioxide BUN 41 H Creatinine 1.5 H Glucose 228 H POC Glucose 236 H 230 H Uric Acid Calcium Total Bilirubin Alkaline Phosphatase CK-MB (CK-2) CK-MB (CK-2) Rel Index Total Protein Albumin Urine WBC (Auto) 01/18/17 01/19/17 01/19/17 16:00 03:46 03:46 WBC RDW 18.9 H Plt Count Lymph % (Auto) [place] % (Auto) Eos % (Auto) Baso % (Auto) Lymph # [place] # Seg Neutrophils % Seg Neuts % (Manual) Lymphocytes % (Manual) Monocytes % (Manual) Eosinophils % (Manual) Seg Neutrophils # Lymphocytes # (Manual) Monocytes # (Manual) POC ABG pH POC ABG pCO2 POC ABG pO2 Sodium 128 L Potassium Chloride 92.3 L Carbon Dioxide 21 L BUN 40 H Creatinine 1.4 H Glucose 178 H POC Glucose 253 H Uric Acid Calcium Total Bilirubin Alkaline Phosphatase CK-MB (CK-2) CK-MB (CK-2) Rel Index Total Protein Albumin Urine WBC (Auto) 01/19/17 01/19/17 01/19/17 09:21 11:45 13:02 WBC RDW Plt Count Lymph % (Auto) [place] % (Auto) Eos % (Auto) Baso % (Auto) Lymph # [place] # Seg Neutrophils % Seg Neuts % (Manual) Lymphocytes % (Manual) Monocytes % (Manual) Eosinophils % (Manual) Seg Neutrophils # Lymphocytes # (Manual) Monocytes # (Manual) POC ABG pH POC ABG pCO2 POC ABG pO2 Sodium 131 L Potassium Chloride 92.8 L Carbon Dioxide BUN 39 H Creatinine 1.4 H Glucose 159 H POC Glucose 135 H 125 H Uric Acid Calcium Total Bilirubin Alkaline Phosphatase CK-MB (CK-2) 4.1 H CK-MB (CK-2) Rel Index 4.1 H Total Protein Albumin Urine WBC (Auto) 01/19/17 01/20/17 01/20/17 15:48 04:00 05:45 WBC 11.5 H RDW 18.9 H Plt Count 131 L Lymph % (Auto) [place] % (Auto) Eos % (Auto) Baso % (Auto) Lymph # [place] # Seg Neutrophils % Seg Neuts % (Manual) Lymphocytes % (Manual) Monocytes % (Manual) Eosinophils % (Manual) Seg Neutrophils # Lymphocytes # (Manual) Monocytes # (Manual) POC ABG pH POC ABG pCO2 POC ABG pO2 189 H Sodium 129 L Potassium Chloride 91.4 L Carbon Dioxide BUN 37 H Creatinine 1.3 H Glucose POC Glucose Uric Acid Calcium Total Bilirubin Alkaline Phosphatase CK-MB (CK-2) CK-MB (CK-2) Rel Index Total Protein Albumin Urine WBC (Auto) 01/20/17 01/20/17 01/21/17 06:09 09:34 00:26 WBC RDW Plt Count Lymph % (Auto) [place] % (Auto) Eos % (Auto) Baso % (Auto) Lymph # [place] # Seg Neutrophils % Seg Neuts % (Manual) Lymphocytes % (Manual) Monocytes % (Manual) Eosinophils % (Manual) Seg Neutrophils # Lymphocytes # (Manual) Monocytes # (Manual) POC ABG pH POC ABG pCO2 POC ABG pO2 67 L Sodium Potassium Chloride Carbon Dioxide BUN Creatinine Glucose POC Glucose 109 H Uric Acid Calcium Total Bilirubin Alkaline Phosphatase CK-MB (CK-2) CK-MB (CK-2) Rel Index Total Protein Albumin Urine WBC (Auto) 15.0 H 01/21/17 01/21/17 01/21/17 04:23 05:20 05:20 WBC 11.8 H RDW 18.9 H Plt Count 135 L Lymph % (Auto) [place] % (Auto) Eos % (Auto) Baso % (Auto) Lymph # [place] # Seg Neutrophils % Seg Neuts % (Manual) Lymphocytes % (Manual) Monocytes % (Manual) Eosinophils % (Manual) Seg Neutrophils # Lymphocytes # (Manual) Monocytes # (Manual) POC ABG pH 7.338 L POC ABG pCO2 48.6 H POC ABG pO2 67 L Sodium 134 L Potassium Chloride 95.5 L Carbon Dioxide BUN 38 H Creatinine 1.5 H Glucose 110 H POC Glucose Uric Acid Calcium Total Bilirubin Alkaline Phosphatase CK-MB (CK-2) CK-MB (CK-2) Rel Index Total Protein Albumin Urine WBC (Auto) 01/21/17 01/21/17 01/21/17 05:38 18:20 22:54 WBC RDW Plt Count Lymph % (Auto) [place] % (Auto) Eos % (Auto) Baso % (Auto) Lymph # [place] # Seg Neutrophils % Seg Neuts % (Manual) Lymphocytes % (Manual) Monocytes % (Manual) Eosinophils % (Manual) Seg Neutrophils # Lymphocytes # (Manual) Monocytes # (Manual) POC ABG pH POC ABG pCO2 POC ABG pO2 Sodium Potassium Chloride Carbon Dioxide BUN Creatinine Glucose POC Glucose 120 H 135 H 163 H Uric Acid Calcium Total Bilirubin Alkaline Phosphatase CK-MB (CK-2) CK-MB (CK-2) Rel Index Total Protein Albumin Urine WBC (Auto) 01/22/17 01/22/17 01/22/17 04:00 04:00 11:27 WBC 11.6 H RDW 18.7 H Plt Count 116 L Lymph % (Auto) 2.9 L [place] % (Auto) 11.1 H Eos % (Auto) Baso % (Auto) Lymph # 0.3 L [place] # 1.3 H Seg Neutrophils % 84.2 H Seg Neuts % (Manual) Lymphocytes % (Manual) Monocytes % (Manual) Eosinophils % (Manual) Seg Neutrophils # 9.8 H Lymphocytes # (Manual) Monocytes # (Manual) POC ABG pH POC ABG pCO2 POC ABG pO2 Sodium 135 L Potassium Chloride 94.6 L Carbon Dioxide BUN 43 H Creatinine 1.9 H Glucose 148 H POC Glucose 151 H Uric Acid Calcium Total Bilirubin 1.60 H Alkaline Phosphatase CK-MB (CK-2) CK-MB (CK-2) Rel Index Total Protein 5.6 L Albumin 2.8 L Urine WBC (Auto) 01/22/17 01/22/17 01/22/17 11:37 13:00 17:14 WBC RDW Plt Count Lymph % (Auto) [place] % (Auto) Eos % (Auto) Baso % (Auto) Lymph # [place] # Seg Neutrophils % Seg Neuts % (Manual) Lymphocytes % (Manual) Monocytes % (Manual) Eosinophils % (Manual) Seg Neutrophils # Lymphocytes # (Manual) Monocytes # (Manual) POC ABG pH POC ABG pCO2 45.2 H POC ABG pO2 Sodium Potassium Chloride Carbon Dioxide BUN Creatinine Glucose POC Glucose 178 H Uric Acid 12.0 H Calcium Total Bilirubin Alkaline Phosphatase CK-MB (CK-2) CK-MB (CK-2) Rel Index Total Protein Albumin Urine WBC (Auto) 01/22/17 01/23/17 01/23/17 23:33 04:10 04:10 WBC RDW 19.1 H Plt Count Lymph % (Auto) 3.3 L [place] % (Auto) 11.5 H Eos % (Auto) Baso % (Auto) Lymph # 0.3 L [place] # 1.2 H Seg Neutrophils % 83.9 H Seg Neuts % (Manual) Lymphocytes % (Manual) Monocytes % (Manual) Eosinophils % (Manual) Seg Neutrophils # 8.4 H Lymphocytes # (Manual) Monocytes # (Manual) POC ABG pH POC ABG pCO2 POC ABG pO2 Sodium 134 L Potassium Chloride 95.1 L Carbon Dioxide BUN 48 H Creatinine 2.0 H Glucose 197 H POC Glucose 202 H Uric Acid Calcium Total Bilirubin Alkaline Phosphatase CK-MB (CK-2) CK-MB (CK-2) Rel Index Total Protein Albumin Urine WBC (Auto) 01/23/17 01/23/17 01/23/17 05:19 12:16 16:51 WBC RDW Plt Count Lymph % (Auto) [place] % (Auto) Eos % (Auto) Baso % (Auto) Lymph # [place] # Seg Neutrophils % Seg Neuts % (Manual) Lymphocytes % (Manual) Monocytes % (Manual) Eosinophils % (Manual) Seg Neutrophils # Lymphocytes # (Manual) Monocytes # (Manual) POC ABG pH 7.317 L POC ABG pCO2 49.6 H POC ABG pO2 Sodium Potassium Chloride Carbon Dioxide BUN Creatinine Glucose POC Glucose 186 H 146 H Uric Acid Calcium Total Bilirubin Alkaline Phosphatase CK-MB (CK-2) CK-MB (CK-2) Rel Index Total Protein Albumin Urine WBC (Auto) 01/23/17 01/23/17 01/24/17 17:24 23:57 05:12 WBC RDW Plt Count Lymph % (Auto) [place] % (Auto) Eos % (Auto) Baso % (Auto) Lymph # [place] # Seg Neutrophils % Seg Neuts % (Manual) Lymphocytes % (Manual) Monocytes % (Manual) Eosinophils % (Manual) Seg Neutrophils # Lymphocytes # (Manual) Monocytes # (Manual) POC ABG pH POC ABG pCO2 POC ABG pO2 Sodium Potassium Chloride Carbon Dioxide BUN Creatinine Glucose POC Glucose 176 H 212 H 215 H Uric Acid Calcium Total Bilirubin Alkaline Phosphatase CK-MB (CK-2) CK-MB (CK-2) Rel Index Total Protein Albumin Urine WBC (Auto) 01/24/17 01/24/17 01/24/17 05:44 07:50 12:14 WBC RDW Plt Count Lymph % (Auto) [place] % (Auto) Eos % (Auto) Baso % (Auto) Lymph # [place] # Seg Neutrophils % Seg Neuts % (Manual) Lymphocytes % (Manual) Monocytes % (Manual) Eosinophils % (Manual) Seg Neutrophils # Lymphocytes # (Manual) Monocytes # (Manual) POC ABG pH POC ABG pCO2 POC ABG pO2 Sodium 136 L D Potassium 2.0 L* D Chloride 120.0 H 97.9 L Carbon Dioxide 15 L D BUN 34 H 54 H Creatinine 1.9 H D Glucose 138 H 205 H POC Glucose 210 H Uric Acid Calcium 4.8 L* D Total Bilirubin Alkaline Phosphatase 33 L CK-MB (CK-2) CK-MB (CK-2) Rel Index Total Protein 3.0 L D Albumin 1.4 L Urine WBC (Auto) 01/24/17 01/24/17 01/24/17 16:54 23:35 Unknown WBC RDW 18.6 H Plt Count 138 L Lymph % (Auto) [place] % (Auto) Eos % (Auto) Baso % (Auto) Lymph # [place] # Seg Neutrophils % Seg Neuts % (Manual) 71.0 H Lymphocytes % (Manual) 5.0 L Monocytes % (Manual) 18.0 H Eosinophils % (Manual) 5.0 H Seg Neutrophils # Lymphocytes # (Manual) 0.4 L Monocytes # (Manual) 1.3 H POC ABG pH POC ABG pCO2 POC ABG pO2 Sodium Potassium Chloride Carbon Dioxide BUN Creatinine Glucose POC Glucose 227 H 260 H Uric Acid Calcium Total Bilirubin Alkaline Phosphatase CK-MB (CK-2) CK-MB (CK-2) Rel Index Total Protein Albumin Urine WBC (Auto) 01/25/17 01/25/17 01/25/17 05:52 07:54 07:54 WBC RDW 18.9 H Plt Count Lymph % (Auto) [place] % (Auto) Eos % (Auto) Baso % (Auto) Lymph # [place] # Seg Neutrophils % Seg Neuts % (Manual) Lymphocytes % (Manual) Monocytes % (Manual) Eosinophils % (Manual) Seg Neutrophils # Lymphocytes # (Manual) Monocytes # (Manual) POC ABG pH POC ABG pCO2 POC ABG pO2 Sodium 135 L Potassium Chloride 97.0 L Carbon Dioxide BUN 55 H Creatinine 1.6 H Glucose 235 H POC Glucose 226 H Uric Acid Calcium Total Bilirubin Alkaline Phosphatase CK-MB (CK-2) CK-MB (CK-2) Rel Index Total Protein Albumin Urine WBC (Auto) 01/25/17 01/25/17 01/25/17 11:38 17:15 23:21 WBC RDW Plt Count Lymph % (Auto) [place] % (Auto) Eos % (Auto) Baso % (Auto) Lymph # [place] # Seg Neutrophils % Seg Neuts % (Manual) Lymphocytes % (Manual) Monocytes % (Manual) Eosinophils % (Manual) Seg Neutrophils # Lymphocytes # (Manual) Monocytes # (Manual) POC ABG pH POC ABG pCO2 POC ABG pO2 Sodium Potassium Chloride Carbon Dioxide BUN Creatinine Glucose POC Glucose 226 H 249 H 245 H Uric Acid Calcium Total Bilirubin Alkaline Phosphatase CK-MB (CK-2) CK-MB (CK-2) Rel Index Total Protein Albumin Urine WBC (Auto) 01/26/17 01/26/17 01/26/17 05:27 12:52 18:16 WBC RDW Plt Count Lymph % (Auto) [place] % (Auto) Eos % (Auto) Baso % (Auto) Lymph # [place] # Seg Neutrophils % Seg Neuts % (Manual) Lymphocytes % (Manual) Monocytes % (Manual) Eosinophils % (Manual) Seg Neutrophils # Lymphocytes # (Manual) Monocytes # (Manual) POC ABG pH POC ABG pCO2 POC ABG pO2 Sodium Potassium Chloride Carbon Dioxide BUN Creatinine Glucose POC Glucose 244 H 231 H 231 H Uric Acid Calcium Total Bilirubin Alkaline Phosphatase CK-MB (CK-2) CK-MB (CK-2) Rel Index Total Protein Albumin Urine WBC (Auto) 01/26/17 01/26/17 01/27/17 18:18 23:33 04:45 WBC RDW 18.6 H Plt Count Lymph % (Auto) 4.6 L [place] % (Auto) 13.6 H Eos % (Auto) 4.4 H Baso % (Auto) Lymph # 0.4 L [place] # 1.1 H Seg Neutrophils % 76.5 H Seg Neuts % (Manual) Lymphocytes % (Manual) Monocytes % (Manual) Eosinophils % (Manual) Seg Neutrophils # Lymphocytes # (Manual) Monocytes # (Manual) POC ABG pH POC ABG pCO2 POC ABG pO2 Sodium Potassium Chloride Carbon Dioxide BUN Creatinine Glucose POC Glucose 191 H 202 H Uric Acid Calcium Total Bilirubin Alkaline Phosphatase CK-MB (CK-2) CK-MB (CK-2) Rel Index Total Protein Albumin Urine WBC (Auto) 01/27/17 01/27/17 01/27/17 04:45 05:36 12:24 WBC RDW Plt Count Lymph % (Auto) [place] % (Auto) Eos % (Auto) Baso % (Auto) Lymph # [place] # Seg Neutrophils % Seg Neuts % (Manual) Lymphocytes % (Manual) Monocytes % (Manual) Eosinophils % (Manual) Seg Neutrophils # Lymphocytes # (Manual) Monocytes # (Manual) POC ABG pH POC ABG pCO2 POC ABG pO2 Sodium Potassium Chloride Carbon Dioxide BUN 54 H Creatinine Glucose 202 H POC Glucose 202 H 219 H Uric Acid Calcium Total Bilirubin Alkaline Phosphatase CK-MB (CK-2) CK-MB (CK-2) Rel Index Total Protein Albumin Urine WBC (Auto) 01/27/17 01/27/17 01/28/17 17:44 23:38 04:00 WBC RDW Plt Count Lymph % (Auto) [place] % (Auto) Eos % (Auto) Baso % (Auto) Lymph # [place] # Seg Neutrophils % Seg Neuts % (Manual) Lymphocytes % (Manual) Monocytes % (Manual) Eosinophils % (Manual) Seg Neutrophils # Lymphocytes # (Manual) Monocytes # (Manual) POC ABG pH POC ABG pCO2 POC ABG pO2 Sodium Potassium Chloride Carbon Dioxide BUN Creatinine Glucose POC Glucose 237 H 253 H 236 H Uric Acid Calcium Total Bilirubin Alkaline Phosphatase CK-MB (CK-2) CK-MB (CK-2) Rel Index Total Protein Albumin Urine WBC (Auto) 01/28/17 01/28/17 01/28/17 05:00 05:00 12:02 WBC RDW 18.6 H Plt Count Lymph % (Auto) 4.8 L [place] % (Auto) 13.0 H Eos % (Auto) 4.8 H Baso % (Auto) Lymph # 0.4 L [place] # 1.2 H Seg Neutrophils % 76.3 H Seg Neuts % (Manual) Lymphocytes % (Manual) Monocytes % (Manual) Eosinophils % (Manual) Seg Neutrophils # Lymphocytes # (Manual) Monocytes # (Manual) POC ABG pH POC ABG pCO2 POC ABG pO2 Sodium 136 L Potassium Chloride Carbon Dioxide BUN 56 H Creatinine 1.4 H Glucose 225 H POC Glucose 195 H Uric Acid Calcium Total Bilirubin Alkaline Phosphatase CK-MB (CK-2) CK-MB (CK-2) Rel Index Total Protein Albumin Urine WBC (Auto) 01/28/17 01/28/17 01/29/17 17:57 23:50 04:57 WBC RDW Plt Count Lymph % (Auto) [place] % (Auto) Eos % (Auto) Baso % (Auto) Lymph # [place] # Seg Neutrophils % Seg Neuts % (Manual) Lymphocytes % (Manual) Monocytes % (Manual) Eosinophils % (Manual) Seg Neutrophils # Lymphocytes # (Manual) Monocytes # (Manual) POC ABG pH POC ABG pCO2 POC ABG pO2 Sodium Potassium Chloride Carbon Dioxide BUN Creatinine Glucose POC Glucose 193 H 181 H 199 H Uric Acid Calcium Total Bilirubin Alkaline Phosphatase CK-MB (CK-2) CK-MB (CK-2) Rel Index Total Protein Albumin Urine WBC (Auto) 01/29/17 01/29/17 01/29/17 05:30 05:30 11:20 WBC RDW 18.6 H Plt Count Lymph % (Auto) 4.3 L [place] % (Auto) 11.9 H Eos % (Auto) 5.0 H Baso % (Auto) Lymph # 0.3 L [place] # 1.0 H Seg Neutrophils % 78.1 H Seg Neuts % (Manual) Lymphocytes % (Manual) Monocytes % (Manual) Eosinophils % (Manual) Seg Neutrophils # Lymphocytes # (Manual) Monocytes # (Manual) POC ABG pH POC ABG pCO2 POC ABG pO2 Sodium Potassium Chloride 97.9 L Carbon Dioxide BUN 59 H Creatinine 1.6 H Glucose 220 H POC Glucose 215 H Uric Acid Calcium Total Bilirubin Alkaline Phosphatase CK-MB (CK-2) CK-MB (CK-2) Rel Index Total Protein Albumin Urine WBC (Auto) Chest x-ray: report reviewed
[2017-01-29] MEDS ORDERED: LASIX IV ONE (17:04)
--- NOTE | 2017-01-29 20:09 | XRay Report ---
FINAL REPORT EXAM: XR ABDOMEN 1V AP HISTORY: NGT placement TECHNIQUE: Single-view abdomen 1 image PRIORS: Abdomen radiograph from 01/19/2017 FINDINGS: Metallic tip feeding tube courses to the stomach. Bowel-gas pattern is incompletely evaluated in this study. There is increased opacity in the left lung base. No acute osseous abnormality is identified. IMPRESSION: 1. Metallic tip feeding tube courses to the stomach. 2. Atelectasis versus infiltrate in retrocardiac region of the left lung base.
[2017-01-30] MEDS: NOVOLOG SUB-Q SCH ×4 (00:20→18:34)
[2017-01-30 04:45] LABS: Basophils % (Auto) 0.5 % (0.0-1.8); Eosinophils % (Auto) 4.4 % (0.0-4.3); Hematocrit 42.5 % (30.3-42.9); Hemoglobin 13.8 gm/dl (10.1-14.3); Mean Corpuscular HGB Conc 33 % (30-34); Mean Corpuscular Hemoglobin 28 pg (28-32); Mean Corpuscular Volume 87 fl (79-97); Platelet Count 190 K/mm3 (140-440); Red Blood Count 4.88 M/mm3 (3.65-5.03); Red Cell Distribution Width 18.7 % (13.2-15.2); White Blood Count 8.7 K/mm3 (4.5-11.0)
[2017-01-30 05:01] LABS: BUN/Creatinine Ratio 30.52; Calcium 9.6 mg/dL (8.4-10.2); Chloride 96.8 mmol/L (98-107); Potassium 4.6 mmol/L (3.6-5.0)
[2017-01-30] MEDS: ZOCOR PO SCH ×2 (06:39→22:02)
[2017-01-30] MEDS: HEPARIN SUB-Q SCH ×3 (06:46→22:02)
[2017-01-30] MEDS: DILAUDID IV PRN (08:38)
[2017-01-30] MEDS: LOPRESSOR PO SCH (08:38)
[2017-01-30] MEDS: CORDARONE 900 MG in D5W 482 ML IV SCH (08:39)
[2017-01-30] MEDS: PEPCID PO SCH ×3 (08:39→22:02)
[2017-01-30] MEDS: BABY ASPIRIN PO SCH ×2 (08:39→09:07)
[2017-01-30] MEDS: DIFLUCAN/NS 100 MG/50 ML 100 MG/50 ML BAG IV SCH (09:05)
[2017-01-30] MEDS: LEVEMIR SUB-Q SCH (09:06)
--- NOTE | 2017-01-30 11:45 | Progress Note ---
Assessment and Plan To continue IV amiodarone. Would discontinue beta blockers as blood pressure is borderline and patient is in sinus rhythm. - Patient Problems (1) Morbid obesity with BMI of 50.0-59.9, adult Current Visit: Yes Status: Chronic (2) Acute exacerbation of CHF (congestive heart failure) Current Visit: Yes Status: Acute Qualifiers: Congestive heart failure type: combined Qualified Code(s): I50.43 - Acute on chronic combined systolic (congestive) and diastolic (congestive) heart failure (3) Aspiration pneumonia Current Visit: Yes Status: Acute Qualifiers: Aspiration pneumonia type: A Laterality: L Lung location: L (4) Junctional cardiac arrhythmia Current Visit: Yes Status: Resolved (5) GERD (gastroesophageal reflux disease) Current Visit: Yes Status: Chronic Qualifiers: Esophagitis presence: without esophagitis Qualified Code(s): K21.9 - Gastro -esophageal reflux disease without esophagitis (6) HTN (hypertension) Current Visit: Yes Status: Chronic Qualifiers: Hypertension type: essential hypertension Qualified Code(s): I10 - Essential (primary) hypertension (7) Acute and chronic respiratory failure Current Visit: No Status: Chronic Qualifiers: Respiratory failure complication: R (8) Asthma exacerbation Current Visit: No Status: Acute (9) Sleep apnea Current Visit: No Status: Chronic Qualifiers: Sleep apnea type: S Subjective Date of service: 01/30/17 Principal diagnosis: CHF exacerbation Interval history: Patient is in sinus rhythm. Blood pressure is borderline (95/68 minutes of mercury) Creatinine today is 1.9 serum magnesium level ordered yesterday was normal. Patient is on BiPAP at an (50% FiO2). Objective Vital Signs Temp Pulse Resp BP Pulse Ox 01/30/17 09:00 86 33 H 130/89 93 01/30/17 08:38 90 133/96 01/30/17 08:18 91 H 36 H 133/96 96 01/30/17 08:00 84 34 H 133/96 96 01/30/17 07:46 97.6 F 01/30/17 07:00 88 33 H 135/91 94 01/30/17 06:00 92 H 29 H 140/90 95 01/30/17 05:00 82 31 H 142/98 96 01/30/17 04:00 97.5 F L 83 14 116/74 92 01/30/17 03:00 78 26 H 122/80 88 01/30/17 02:00 76 37 H 131/94 93 01/30/17 01:00 80 21 127/78 92 01/30/17 00:00 97.9 F 80 28 H 128/91 97 01/29/17 23:00 83 30 H 129/95 01/29/17 22:00 85 25 H 123/87 01/29/17 21:01 84 16 127/100 01/29/17 20:00 97.8 F 81 25 H 132/90 01/29/17 19:53 81 21 133/86 01/29/17 19:38 84 24 124/82 98 01/29/17 19:37 98 01/29/17 19:00 89 21 124/82 01/29/17 18:00 89 29 H 150/101 01/29/17 17:41 92 H 28 H 129/113 96 01/29/17 17:01 93 H 31 H 133/89 01/29/17 16:00 83 18 122/78 96 01/29/17 15:49 98.3 F 01/29/17 15:00 82 19 123/84 01/29/17 14:00 76 18 104/71 99 01/29/17 13:01 78 22 103/71 100 01/29/17 12:00 80 21 89/57 95 01/29/17 11:45 97.7 F - Physical Examination General: Appears Well, No Apparent Distress HEENT: Positive: PERRL, EOMI, Normocephaly Neck: Positive: neck supple, trachea midline, JVD/HJR (JVD +) Cardiac: Positive: Reg Rate and Rhythm Lungs: Positive: clear to auscultation, Normal Breath Sounds Neuro: Positive: Grossly Intact Abdomen: Positive: Unremarkable, Soft, Active Bowel Sounds Skin: Negative: Rash, Suspicious Lesions Musculoskeletal: No Fluid Collection, No Pain Extremities: Present: warm, Other (chronic venous stasis changes). Absent: edema - Labs and Meds CBC 01/30/17 Range/Units 04:00 WBC 8.7 (4.5-11.0) K/mm3 RBC 4.88 (3.65-5.03) M/mm3 Hgb 13.8 (10.1-14.3) gm/dl Hct 42.5 (30.3-42.9) % Plt Count 190 (140-440) K/mm3 Lymph # 0.6 L (1.2-5.4) K/mm3 [place] # 1.1 H (0.0-0.8) K/mm3 Eos # 0.4 (0.0-0.4) K/mm3 Baso # 0.0 (0.0-0.1) K/mm3 Comprehensive Metabolic Panel 01/30/17 Range/Units 04:00 Sodium 136 L (137-145) mmol/L Potassium 4.6 (3.6-5.0) mmol/L Chloride 96.8 L (98-107) mmol/L Carbon Dioxide 24 (22-30) mmol/L BUN 58 H (7-17) mg/dL Creatinine 1.9 H (0.7-1.2) mg/dL Glucose 121 H (65-100) mg/dL Calcium 9.6 (8.4-10.2) mg/dL - Imaging and Cardiology EKG: report reviewed (Tachycardia of 128/min Junctional rhythm), image reviewed Stress echo: report reviewed (Cardiac PET 11/11: very small mild anterior, anteroapical mild reversible defect. EF stress 58%) Echo: report reviewed (ECHO 11/16: TDS, EF cannot be determined due to poor image quality, ) Cardiac cath: report reviewed ([facility] 06/07: LM: patent, LCX: diffuse disease, LAD: diffuse disease, RCA: diffuse disease, mid 40%) - Telemetry EKG Rhythm: Sinus Rhythm
--- NOTE | 2017-01-30 12:57 | Progress Note ---
Assessment and Plan Assessment and plan: S/p PEA cardiorespiratory arrest 01/19. s/p IV amio 150mg bolus x 1. Cardiology following. Cardiac isoenzymes negative for AMI s/p code; ECG with no ischemic changes. Patient previously on Dobutamine gtt which has now been discontinued. 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 Continue per cardiology. Cont strict I/O. The diuretics held in setting of CIERRA. ACEI/ARB held in setting of CIERRA. Aspiration PNA. Treated. Patient off antibiotics. Sepsis. Etiology secondary to pneumonia and UTI. Urine culture revealed enterococcus. Acute hypoxic respiratory failure. Etiology secondary to above. Patient currently on high flow O2. Continue BiPAP as clinically indicated. Pulmonary following. Acute renal failure. Renal function appears to be stable at present. Etiology secondary to CIERRA and vasomotor nephropathy. Nephrology following. Avoid nephrotoxic agents. Maintain MAP greater than 65. Hyponatremia. Follow-up BMP Accelerated junction arrhythmia / 1st degree AV block. Cardiology following. Cardiology started amiodarone drip. Beta blockers discontinued. Cardiomyopathy. 01/15/2017 2D echocardiogram reported as global left ventricular systolic function is severely decreased, estimated EF is 10-15%, left atrium mildly dilated, right ventricle is mild to moderately dilated, right ventricular global systolic function is moderately reduced, right atrium is mild to moderate dilated, trace AR, no , mitral annular calcification, mild MR, no ms, moderate TR, right ventricular systolic function is calculated at 48mmhg, there is small pericardial effusion which does not appear to be hemodynamically significant NSVT. Continue medications as above per cardiology. Acute toxic metabolic encephalopathy. Resolved. Enterococcus UTI. As above. Diabetes type II, uncontrolled. Continue sliding scale and Accu-Cheks. Hyperlipidemia History of Breast CA Obesity History Interval history: No new issues overnight. Patient currently on BiPAP. Patient is somewhat somnolent this morning. Hospitalist Physical - Constitutional Vitals: Temp Pulse Resp BP Pulse Ox 97.6 F 86 33 H 130/89 93 01/30/17 12:00 01/30/17 09:00 01/30/17 09:00 01/30/17 09:00 01/30/17 09:00 General appearance: Present: well-nourished, obese, other (family present) - EENT Eyes: Present: PERRL, EOM intact ENT: hearing intact, clear oral mucosa, dentition normal - Neck Neck: Present: supple, normal ROM - Respiratory Respiratory effort: normal Respiratory: bilateral: diminished, rales, rhonchi - Cardiovascular Rhythm: regular Heart Sounds: Present: S1 & S2. Absent: gallop, rub - Extremities Extremities: no ischemia, No edema, Full ROM - Abdominal General gastrointestinal: soft, non-tender, non-distended, normal bowel sounds - Integumentary Integumentary: Present: clear, warm, dry - Neurologic Neurologic: CNII-XII intact, moves all extremities Results - Labs CBC & Chem 7: 01/30/17 04:00 01/30/17 04:00 Labs: Laboratory Last Values WBC 8.7 K/mm3 (4.5-11.0) 01/30/17 04:00 RBC 4.88 M/mm3 (3.65-5.03) 01/30/17 04:00 Hgb 13.8 gm/dl (10.1-14.3) 01/30/17 04:00 Hct 42.5 % (30.3-42.9) 01/30/17 04:00 MCV 87 fl (79-97) 01/30/17 04:00 MCH 28 pg (28-32) 01/30/17 04:00 MCHC 33 % (30-34) 01/30/17 04:00 RDW 18.7 % (13.2-15.2) H 01/30/17 04:00 Plt Count 190 K/mm3 (140-440) 01/30/17 04:00 Lymph % (Auto) 6.6 % (13.4-35.0) L 01/30/17 04:00 [place] % (Auto) 12.2 % (0.0-7.3) H 01/30/17 04:00 Eos % (Auto) 4.4 % (0.0-4.3) H 01/30/17 04:00 Baso % (Auto) 0.5 % (0.0-1.8) 01/30/17 04:00 Lymph # 0.6 K/mm3 (1.2-5.4) L 01/30/17 04:00 [place] # 1.1 K/mm3 (0.0-0.8) H 01/30/17 04:00 Eos # 0.4 K/mm3 (0.0-0.4) 01/30/17 04:00 Baso # 0.0 K/mm3 (0.0-0.1) 01/30/17 04:00 Add Manual Diff Complete 01/24/17 Unknown Total Counted 100 01/24/17 Unknown Seg Neutrophils % 76.3 % (40.0-70.0) H 01/30/17 04:00 Seg Neuts % (Manual) 71.0 % (40.0-70.0) H 01/24/17 Unknown Band Neutrophils % 0 % 01/24/17 Unknown Lymphocytes % (Manual) 5.0 % (13.4-35.0) L 01/24/17 Unknown Reactive Lymphs % (Man) 0 % 01/24/17 Unknown Monocytes % (Manual) 18.0 % (0.0-7.3) H 01/24/17 Unknown Eosinophils % (Manual) 5.0 % (0.0-4.3) H 01/24/17 Unknown Basophils % (Manual) 1.0 % (0.0-1.8) 01/24/17 Unknown Metamyelocytes % 0 % 01/24/17 Unknown Myelocytes % 0 % 01/24/17 Unknown Promyelocytes % 0 % 01/24/17 Unknown Blast Cells % 0 % 01/24/17 Unknown Nucleated RBC % Not Reportable 01/24/17 Unknown Seg Neutrophils # 6.7 K/mm3 (1.8-7.7) 01/30/17 04:00 Seg Neutrophils # Man 5.1 K/mm3 (1.8-7.7) 01/24/17 Unknown Band Neutrophils # 0.0 K/mm3 01/24/17 Unknown Lymphocytes # (Manual) 0.4 K/mm3 (1.2-5.4) L 01/24/17 Unknown Abs React Lymphs (Man) 0.0 K/mm3 01/24/17 Unknown Monocytes # (Manual) 1.3 K/mm3 (0.0-0.8) H 01/24/17 Unknown Eosinophils # (Manual) 0.4 K/mm3 (0.0-0.4) 01/24/17 Unknown Basophils # (Manual) 0.1 K/mm3 (0.0-0.1) 01/24/17 Unknown Metamyelocytes # 0.0 K/mm3 01/24/17 Unknown Myelocytes # 0.0 K/mm3 01/24/17 Unknown Promyelocytes # 0.0 K/mm3 01/24/17 Unknown Blast Cells # 0.0 K/mm3 01/24/17 Unknown WBC Morphology Not Reportable 01/24/17 Unknown Hypersegmented Neuts Not Reportable 01/24/17 Unknown Hyposegmented Neuts Not Reportable 01/24/17 Unknown Hypogranular Neuts Not Reportable 01/24/17 Unknown Smudge Cells Not Reportable 01/24/17 Unknown Toxic Granulation Not Reportable 01/24/17 Unknown Toxic Vacuolation Not Reportable 01/24/17 Unknown Dohle Bodies Not Reportable 01/24/17 Unknown Pelger-Huet Anomaly Not Reportable 01/24/17 Unknown Yusuf Rods Not Reportable 01/24/17 Unknown Platelet Estimate Consistent w auto 01/24/17 Unknown Clumped Platelets Not Reportable 01/24/17 Unknown Plt Clumps, EDTA Not Reportable 01/24/17 Unknown Large Platelets Not Reportable 01/24/17 Unknown Giant Platelets Not Reportable 01/24/17 Unknown Platelet Satelliting Not Reportable 01/24/17 Unknown Plt Morphology Comment Not Reportable 01/24/17 Unknown RBC Morphology Normal 01/24/17 Unknown Dimorphic RBCs Not Reportable 01/24/17 Unknown Polychromasia Not Reportable 01/24/17 Unknown Hypochromasia Not Reportable 01/24/17 Unknown Poikilocytosis Not Reportable 01/24/17 Unknown Anisocytosis Not Reportable 01/24/17 Unknown Microcytosis Not Reportable 01/24/17 Unknown Macrocytosis Not Reportable 01/24/17 Unknown Spherocytes Not Reportable 01/24/17 Unknown Pappenheimer Bodies Not Reportable 01/24/17 Unknown Sickle Cells Not Reportable 01/24/17 Unknown Target Cells Not Reportable 01/24/17 Unknown Tear Drop Cells Not Reportable 01/24/17 Unknown Ovalocytes Not Reportable 01/24/17 Unknown Helmet Cells Not Reportable 01/24/17 Unknown [place] Bodies Not Reportable 01/24/17 Unknown [place] Rings Not Reportable 01/24/17 Unknown [place] Cells Not Reportable 01/24/17 Unknown Bite Cells Not Reportable 01/24/17 Unknown Crenated Cell Not Reportable 01/24/17 Unknown Elliptocytes Not Reportable 01/24/17 Unknown Acanthocytes (Spur) Not Reportable 01/24/17 Unknown Rouleaux Not Reportable 01/24/17 Unknown Hemoglobin C Crystals Not Reportable 01/24/17 Unknown Schistocytes Not Reportable 01/24/17 Unknown Malaria parasites Not Reportable 01/24/17 Unknown Trevor Bodies Not Reportable 01/24/17 Unknown Hem Pathologist Commnt No 01/24/17 Unknown POC ABG pH 7.317 (7.35-7.45) L 01/23/17 16:51 POC ABG pCO2 49.6 (35-45) H 01/23/17 16:51 POC ABG pO2 93 (80-105) 01/23/17 16:51 POC ABG HCO3 25.4 01/23/17 16:51 POC ABG Total CO2 27 01/23/17 16:51 POC ABG O2 Sat 96 01/23/17 16:51 POC ABG Base Excess -1 01/23/17 16:51 FiO2 35 % 01/23/17 16:51 Sodium 136 mmol/L (137-145) L 01/30/17 04:00 Potassium 4.6 mmol/L (3.6-5.0) 01/30/17 04:00 Chloride 96.8 mmol/L (98-107) L 01/30/17 04:00 Carbon Dioxide 24 mmol/L (22-30) 01/30/17 04:00 Anion Gap 20 mmol/L 01/30/17 04:00 BUN 58 mg/dL (7-17) H 01/30/17 04:00 Creatinine 1.9 mg/dL (0.7-1.2) H 01/30/17 04:00 Estimated GFR 31 ml/min 01/30/17 04:00 BUN/Creatinine Ratio 30.52 % 01/30/17 04:00 Glucose 121 mg/dL (65-100) H 01/30/17 04:00 POC Glucose 175 (70-105) H 01/30/17 12:08 Osmolality 298 Mosm/kg 01/22/17 13:00 Uric Acid 12.0 mg/dL (3.5-7.6) H 01/22/17 13:00 Calcium 9.6 mg/dL (8.4-10.2) 01/30/17 04:00 Magnesium 2.00 mg/dL (1.7-2.3) 01/29/17 05:30 Total Bilirubin 1.60 mg/dL (0.1-1.2) H 01/22/17 04:00 AST 25 units/L (5-40) 01/22/17 04:00 ALT 12 units/L (7-56) 01/22/17 04:00 Alkaline Phosphatase 63 units/L (35-129) 01/22/17 04:00 Total Creatine Kinase 98 units/L (30-135) 01/19/17 13:02 CK-MB (CK-2) 4.1 ng/mL (0.0-4.0) H 01/19/17 13:02 CK-MB (CK-2) Rel Index 4.1 (0-4) H 01/19/17 13:02 Troponin T 0.022 ng/mL (0.00-0.029) 01/19/17 13:02 NT-Pro-B Natriuret Pep 8400 pg/mL (0-900) H 01/15/17 09:03 Total Protein 5.6 g/dL (6.3-8.2) L 01/22/17 04:00 Albumin 2.8 g/dL (3.9-5) L 01/22/17 04:00 Albumin/Globulin Ratio 1.0 % 01/22/17 04:00 Urine Color Yellow (Yellow) 01/20/17 09:34 Urine Turbidity Clear (Clear) 01/20/17 09:34 Urine pH 5.0 (5.0-7.0) 01/20/17 09:34 Ur Specific [place] 1.006 (1.003-1.030) 01/20/17 09:34 Urine Protein <15 mg/dl mg/dL (Negative) 01/20/17 09:34 Urine Glucose (UA) Neg mg/dL (Negative) 01/20/17 09:34 Urine Ketones Neg mg/dL (Negative) 01/20/17 09:34 Urine Blood Mod (Negative) 01/20/17 09:34 Urine Nitrite Neg (Negative) 01/20/17 09:34 Urine Bilirubin Neg (Negative) 01/20/17 09:34 Urine Urobilinogen < 2.0 mg/dL (<2.0) 01/20/17 09:34 Ur Leukocyte Esterase Mod (Negative) 01/20/17 09:34 Urine WBC (Auto) 15.0 /HPF (0.0-6.0) H 01/20/17 09:34 Urine RBC (Auto) 12.0 /HPF (0.0-6.0) 01/20/17 09:34 U Epithel Cells (Auto) 2.0 /HPF (0-13.0) 01/20/17 09:34 Urine Bacteria (Auto) 1+ /HPF (Negative) 01/20/17 09:34 Amorphous Crystals Few 01/20/17 09:34 Urine Yeast (Budding) 1+ /HPF 01/20/17 09:34 Vancomycin Trough 16.5 ug/mL (5.0-20.0) 01/22/17 13:00
[2017-01-30] MEDS: PERCOCET 5/325 PO PRN ×2 (13:12→18:54)
--- NOTE | 2017-01-30 14:29 | Progress Note ---
Assessment and Plan Assessment and Plan Imp: 1. Dilated CMP 2. Acute systolic CHF 3. CIERRA 4. Acute respiratory failure, hypoxia 5. Morbid obesity 6. s/p PEA arrest; may have aspirated 7. SIRS +/- aspiration pneumonitis +/- UTI 8. Enterococcus in urine infection versus colonization, suspect later Rec: 1. CXR shows no acute findings; unable wean off BIPAP. Wean FiO2 2. Holding Lasix 2/2 CIERRA but consider resuming at some point 3. DVT PPx 4. ABX per ID 5. Beta-steven dose per cardiology 6. Cont. TFs, ST consult re: swallow 7. Needs to remain in ICU as remains critically ill on BIPAP 8. Complex patient Total critical care time 31 minute Subjective Date of service: 01/30/17 Principal diagnosis: CHF exacerbation Interval history: Responsive and awake. Remain on BiPAP. Mild tachypnea. Unable to tolerate being off BiPAP. High flow nasal cannula was attempted this morning patient desaturated and was placed back on BiPAP. Patient is awake and responsive Objective Vital Signs - 12hr 01/30/17 01/30/17 01/30/17 03:00 04:00 05:00 Temperature 97.5 F L Pulse Rate 78 83 82 Respiratory 26 H 14 31 H Rate Blood Pressure 122/80 116/74 142/98 O2 Sat by Pulse 88 92 96 Oximetry 01/30/17 01/30/17 01/30/17 06:00 07:00 07:46 Temperature 97.6 F Pulse Rate 92 H 88 Respiratory 29 H 33 H Rate Blood Pressure 140/90 135/91 O2 Sat by Pulse 95 94 Oximetry 01/30/17 01/30/17 01/30/17 08:00 08:18 08:38 Temperature Pulse Rate 84 91 H 90 Respiratory 34 H 36 H Rate Blood Pressure 133/96 133/96 133/96 O2 Sat by Pulse 96 96 Oximetry 01/30/17 01/30/17 01/30/17 09:00 10:00 11:00 Temperature Pulse Rate 86 74 77 Respiratory 33 H 25 H 22 Rate Blood Pressure 130/89 127/81 95/68 O2 Sat by Pulse 93 95 96 Oximetry 01/30/17 01/30/17 12:00 13:00 Temperature 97.6 F Pulse Rate 72 75 Respiratory 22 22 Rate Blood Pressure 108/75 129/86 O2 Sat by Pulse 98 98 Oximetry Constitutional: no acute distress, alert Eyes: non-icteric ENT: other (on BiPAP) Neck: supple, no JVD Effort: normal Ascultation: Bilateral: clear, diminished breath sounds (bases), rhonchi ( bilateral), other (coarse, equal BS bilaterally) Cardiovascular: irregular rhythm Gastrointestinal: normoactive bowel sounds, soft, other (obese) Integumentary: normal Extremities: no cyanosis, no edema, pink and warm, other (SCDs are in place) Neurologic: normal mental status, non-focal exam, pupils equal and round Psychiatric: mood appropriate, affect normal CBC and BMP: 01/30/17 04:00 01/30/17 04:00 ABG, PT/INR, D-dimer: ABG POC ABG pH 7.317 (7.35-7.45) L 01/23/17 16:51 POC ABG pCO2 49.6 (35-45) H 01/23/17 16:51 POC ABG pO2 93 (80-105) 01/23/17 16:51 POC ABG HCO3 25.4 01/23/17 16:51 POC ABG Total CO2 27 01/23/17 16:51 POC ABG O2 Sat 96 01/23/17 16:51 Abnormal lab findings: Abnormal Labs 01/15/17 01/15/17 01/15/17 17:45 22:06 23:40 WBC RDW 18.6 H Plt Count 114 L Lymph % (Auto) [place] % (Auto) Eos % (Auto) Baso % (Auto) Lymph # [place] # Seg Neutrophils % Seg Neuts % (Manual) 82.0 H Lymphocytes % (Manual) 7.0 L Monocytes % (Manual) Eosinophils % (Manual) Seg Neutrophils # Lymphocytes # (Manual) 0.4 L Monocytes # (Manual) POC ABG pH POC ABG pCO2 POC ABG pO2 Sodium Potassium Chloride Carbon Dioxide BUN Creatinine Glucose POC Glucose 147 H 135 H Uric Acid Calcium Total Bilirubin Alkaline Phosphatase CK-MB (CK-2) CK-MB (CK-2) Rel Index Total Protein Albumin Urine WBC (Auto) 01/15/17 01/16/17 01/16/17 23:40 03:44 08:49 WBC RDW Plt Count Lymph % (Auto) [place] % (Auto) Eos % (Auto) Baso % (Auto) Lymph # [place] # Seg Neutrophils % Seg Neuts % (Manual) Lymphocytes % (Manual) Monocytes % (Manual) Eosinophils % (Manual) Seg Neutrophils # Lymphocytes # (Manual) Monocytes # (Manual) POC ABG pH POC ABG pCO2 POC ABG pO2 Sodium 132 L Potassium 5.1 H Chloride 95.5 L Carbon Dioxide 20 L BUN 36 H Creatinine Glucose 128 H POC Glucose 117 H 126 H Uric Acid Calcium Total Bilirubin Alkaline Phosphatase CK-MB (CK-2) CK-MB (CK-2) Rel Index Total Protein Albumin Urine WBC (Auto) 01/16/17 01/16/17 01/16/17 08:56 08:56 12:06 WBC RDW 19.2 H Plt Count Lymph % (Auto) 6.6 L [place] % (Auto) 12.0 H Eos % (Auto) 5.8 H Baso % (Auto) 1.9 H Lymph # 0.3 L [place] # Seg Neutrophils % 73.7 H Seg Neuts % (Manual) Lymphocytes % (Manual) Monocytes % (Manual) Eosinophils % (Manual) Seg Neutrophils # Lymphocytes # (Manual) Monocytes # (Manual) POC ABG pH POC ABG pCO2 POC ABG pO2 Sodium 132 L Potassium Chloride 95.1 L Carbon Dioxide 19 L BUN 36 H Creatinine 1.3 H Glucose 129 H POC Glucose 172 H Uric Acid Calcium Total Bilirubin 1.40 H Alkaline Phosphatase CK-MB (CK-2) CK-MB (CK-2) Rel Index Total Protein 6.2 L Albumin 3.1 L Urine WBC (Auto) 01/16/17 01/17/17 01/17/17 22:34 05:29 05:29 WBC RDW 19.2 H Plt Count Lymph % (Auto) 5.9 L [place] % (Auto) 10.8 H Eos % (Auto) Baso % (Auto) Lymph # 0.4 L [place] # Seg Neutrophils % 80.1 H Seg Neuts % (Manual) Lymphocytes % (Manual) Monocytes % (Manual) Eosinophils % (Manual) Seg Neutrophils # Lymphocytes # (Manual) Monocytes # (Manual) POC ABG pH POC ABG pCO2 POC ABG pO2 Sodium 131 L Potassium 5.3 H Chloride 94.8 L Carbon Dioxide 21 L BUN 39 H Creatinine 1.4 H Glucose 196 H POC Glucose 210 H Uric Acid Calcium Total Bilirubin Alkaline Phosphatase CK-MB (CK-2) CK-MB (CK-2) Rel Index Total Protein Albumin Urine WBC (Auto) 01/17/17 01/17/17 01/17/17 07:39 17:39 22:45 WBC RDW Plt Count Lymph % (Auto) [place] % (Auto) Eos % (Auto) Baso % (Auto) Lymph # [place] # Seg Neutrophils % Seg Neuts % (Manual) Lymphocytes % (Manual) Monocytes % (Manual) Eosinophils % (Manual) Seg Neutrophils # Lymphocytes # (Manual) Monocytes # (Manual) POC ABG pH POC ABG pCO2 POC ABG pO2 Sodium Potassium Chloride Carbon Dioxide BUN Creatinine Glucose POC Glucose 198 H 208 H 223 H Uric Acid Calcium Total Bilirubin Alkaline Phosphatase CK-MB (CK-2) CK-MB (CK-2) Rel Index Total Protein Albumin Urine WBC (Auto) 01/18/17 01/18/17 01/18/17 05:07 08:32 12:24 WBC RDW Plt Count Lymph % (Auto) [place] % (Auto) Eos % (Auto) Baso % (Auto) Lymph # [place] # Seg Neutrophils % Seg Neuts % (Manual) Lymphocytes % (Manual) Monocytes % (Manual) Eosinophils % (Manual) Seg Neutrophils # Lymphocytes # (Manual) Monocytes # (Manual) POC ABG pH POC ABG pCO2 POC ABG pO2 Sodium 129 L Potassium 5.2 H Chloride 92.0 L Carbon Dioxide BUN 41 H Creatinine 1.5 H Glucose 228 H POC Glucose 236 H 230 H Uric Acid Calcium Total Bilirubin Alkaline Phosphatase CK-MB (CK-2) CK-MB (CK-2) Rel Index Total Protein Albumin Urine WBC (Auto) 01/18/17 01/19/17 01/19/17 16:00 03:46 03:46 WBC RDW 18.9 H Plt Count Lymph % (Auto) [place] % (Auto) Eos % (Auto) Baso % (Auto) Lymph # [place] # Seg Neutrophils % Seg Neuts % (Manual) Lymphocytes % (Manual) Monocytes % (Manual) Eosinophils % (Manual) Seg Neutrophils # Lymphocytes # (Manual) Monocytes # (Manual) POC ABG pH POC ABG pCO2 POC ABG pO2 Sodium 128 L Potassium Chloride 92.3 L Carbon Dioxide 21 L BUN 40 H Creatinine 1.4 H Glucose 178 H POC Glucose 253 H Uric Acid Calcium Total Bilirubin Alkaline Phosphatase CK-MB (CK-2) CK-MB (CK-2) Rel Index Total Protein Albumin Urine WBC (Auto) 01/19/17 01/19/1701/19/17 09:21 11:45 13:02 WBC RDW Plt Count Lymph % (Auto) [place] % (Auto) Eos % (Auto) Baso % (Auto) Lymph # [place] # Seg Neutrophils % Seg Neuts % (Manual) Lymphocytes % (Manual) Monocytes % (Manual) Eosinophils % (Manual) Seg Neutrophils # Lymphocytes # (Manual) Monocytes # (Manual) POC ABG pH POC ABG pCO2 POC ABG pO2 Sodium 131 L Potassium Chloride 92.8 L Carbon Dioxide BUN 39 H Creatinine 1.4 H Glucose 159 H POC Glucose 135 H 125 H Uric Acid Calcium Total Bilirubin Alkaline Phosphatase CK-MB (CK-2) 4.1 H CK-MB (CK-2) Rel Index 4.1 H Total Protein Albumin Urine WBC (Auto) 01/19/17 01/20/17 01/20/17 15:48 04:00 05:45 WBC 11.5 H RDW 18.9 H Plt Count 131 L Lymph % (Auto) [place] % (Auto) Eos % (Auto) Baso % (Auto) Lymph # [place] # Seg Neutrophils % Seg Neuts % (Manual) Lymphocytes % (Manual) Monocytes % (Manual) Eosinophils % (Manual) Seg Neutrophils # Lymphocytes # (Manual) Monocytes # (Manual) POC ABG pH POC ABG pCO2 POC ABG pO2 189 H Sodium 129 L Potassium Chloride 91.4 L Carbon Dioxide BUN 37 H Creatinine 1.3 H Glucose POC Glucose Uric Acid Calcium Total Bilirubin Alkaline Phosphatase CK-MB (CK-2) CK-MB (CK-2) Rel Index Total Protein Albumin Urine WBC (Auto) 01/20/17 01/20/17 01/21/17 06:09 09:34 00:26 WBC RDW Plt Count Lymph % (Auto) [place] % (Auto) Eos % (Auto) Baso % (Auto) Lymph # [place] # Seg Neutrophils % Seg Neuts % (Manual) Lymphocytes % (Manual) Monocytes % (Manual) Eosinophils % (Manual) Seg Neutrophils # Lymphocytes # (Manual) Monocytes # (Manual) POC ABG pH POC ABG pCO2 POC ABG pO2 67 L Sodium Potassium Chloride Carbon Dioxide BUN Creatinine Glucose POC Glucose 109 H Uric Acid Calcium Total Bilirubin Alkaline Phosphatase CK-MB (CK-2) CK-MB (CK-2) Rel Index Total Protein Albumin Urine WBC (Auto) 15.0 H 01/21/17 01/21/1717 04:23 05:20 05:20 WBC 11.8 H RDW 18.9 H Plt Count 135 L Lymph % (Auto) [place] % (Auto) Eos % (Auto) Baso % (Auto) Lymph # [place] # Seg Neutrophils % Seg Neuts % (Manual) Lymphocytes % (Manual) Monocytes % (Manual) Eosinophils % (Manual) Seg Neutrophils # Lymphocytes # (Manual) Monocytes # (Manual) POC ABG pH 7.338 L POC ABG pCO2 48.6 H POC ABG pO2 67 L Sodium 134 L Potassium Chloride 95.5 L Carbon Dioxide BUN 38 H Creatinine 1.5 H Glucose 110 H POC Glucose Uric Acid Calcium Total Bilirubin Alkaline Phosphatase CK-MB (CK-2) CK-MB (CK-2) Rel Index Total Protein Albumin Urine WBC (Auto) 01/21/17 01/21/17 01/21/17 05:38 18:20 22:54 WBC RDW Plt Count Lymph % (Auto) [place] % (Auto) Eos % (Auto) Baso % (Auto) Lymph # [place] # Seg Neutrophils % Seg Neuts % (Manual) Lymphocytes % (Manual) Monocytes % (Manual) Eosinophils % (Manual) Seg Neutrophils # Lymphocytes # (Manual) Monocytes # (Manual) POC ABG pH POC ABG pCO2 POC ABG pO2 Sodium Potassium Chloride Carbon Dioxide BUN Creatinine Glucose POC Glucose 120 H 135 H 163 H Uric Acid Calcium Total Bilirubin Alkaline Phosphatase CK-MB (CK-2) CK-MB (CK-2) Rel Index Total Protein Albumin Urine WBC (Auto) 01/22/17 01/22/17 01/22/17 04:00 04:00 11:27 WBC 11.6 H RDW 18.7 H Plt Count 116 L Lymph % (Auto) 2.9 L [place] % (Auto) 11.1 H Eos % (Auto) Baso % (Auto) Lymph # 0.3 L [place] # 1.3 H Seg Neutrophils % 84.2 H Seg Neuts % (Manual) Lymphocytes % (Manual) Monocytes % (Manual) Eosinophils % (Manual) Seg Neutrophils # 9.8 H Lymphocytes # (Manual) Monocytes # (Manual) POC ABG pH POC ABG pCO2 POC ABG pO2 Sodium 135 L Potassium Chloride 94.6 L Carbon Dioxide BUN 43 H Creatinine 1.9 H Glucose 148 H POC Glucose 151 H Uric Acid Calcium Total Bilirubin 1.60 H Alkaline Phosphatase CK-MB (CK-2) CK-MB (CK-2) Rel Index Total Protein 5.6 L Albumin 2.8 L Urine WBC (Auto) 01/22/17 01/22/17 01/22/17 11:37 13:00 17:14 WBC RDW Plt Count Lymph % (Auto) [place] % (Auto) Eos % (Auto) Baso % (Auto) Lymph # [place] # Seg Neutrophils % Seg Neuts % (Manual) Lymphocytes % (Manual) Monocytes % (Manual) Eosinophils % (Manual) Seg Neutrophils # Lymphocytes # (Manual) Monocytes # (Manual) POC ABG pH POC ABG pCO2 45.2 H POC ABG pO2 Sodium Potassium Chloride Carbon Dioxide BUN Creatinine Glucose POC Glucose 178 H Uric Acid 12.0 H Calcium Total Bilirubin Alkaline Phosphatase CK-MB (CK-2) CK-MB (CK-2) Rel Index Total Protein Albumin Urine WBC (Auto) 01/22/17 01/23/17 01/23/17 23:33 04:10 04:10 WBC RDW 19.1 H Plt Count Lymph % (Auto) 3.3 L [place] % (Auto) 11.5 H Eos % (Auto) Baso % (Auto) Lymph # 0.3 L [place] # 1.2 H Seg Neutrophils % 83.9 H Seg Neuts % (Manual) Lymphocytes % (Manual) Monocytes % (Manual) Eosinophils % (Manual) Seg Neutrophils # 8.4 H Lymphocytes # (Manual) Monocytes # (Manual) POC ABG pH POC ABG pCO2 POC ABG pO2 Sodium 134 L Potassium Chloride 95.1 L Carbon Dioxide BUN 48 H Creatinine 2.0 H Glucose 197 H POC Glucose 202 H Uric Acid Calcium Total Bilirubin Alkaline Phosphatase CK-MB (CK-2) CK-MB (CK-2) Rel Index Total Protein Albumin Urine WBC (Auto) 01/23/17 01/23/17 01/23/17 05:19 12:16 16:51 WBC RDW Plt Count Lymph % (Auto) [place] % (Auto) Eos % (Auto) Baso % (Auto) Lymph # [place] # Seg Neutrophils % Seg Neuts % (Manual) Lymphocytes % (Manual) Monocytes % (Manual) Eosinophils % (Manual) Seg Neutrophils # Lymphocytes # (Manual) Monocytes # (Manual) POC ABG pH 7.317 L POC ABG pCO2 49.6 H POC ABG pO2 Sodium Potassium Chloride Carbon Dioxide BUN Creatinine Glucose POC Glucose 186 H 146 H Uric Acid Calcium Total Bilirubin Alkaline Phosphatase CK-MB (CK-2) CK-MB (CK-2) Rel Index Total Protein Albumin Urine WBC (Auto) 01/23/17 01/23/17 01/24/17 17:24 23:57 05:12 WBC RDW Plt Count Lymph % (Auto) [place] % (Auto) Eos % (Auto) Baso % (Auto) Lymph # [place] # Seg Neutrophils % Seg Neuts % (Manual) Lymphocytes % (Manual) Monocytes % (Manual) Eosinophils % (Manual) Seg Neutrophils # Lymphocytes # (Manual) Monocytes # (Manual) POC ABG pH POC ABG pCO2 POC ABG pO2 Sodium Potassium Chloride Carbon Dioxide BUN Creatinine Glucose POC Glucose 176 H 212 H 215 H Uric Acid Calcium Total Bilirubin Alkaline Phosphatase CK-MB (CK-2) CK-MB (CK-2) Rel Index Total Protein Albumin Urine WBC (Auto) 01/24/17 01/24/17 01/24/17 05:44 07:50 12:14 WBC RDW Plt Count Lymph % (Auto) [place] % (Auto) Eos % (Auto) Baso % (Auto) Lymph # [place] # Seg Neutrophils % Seg Neuts % (Manual) Lymphocytes % (Manual) Monocytes % (Manual) Eosinophils % (Manual) Seg Neutrophils # Lymphocytes # (Manual) Monocytes # (Manual) POC ABG pH POC ABG pCO2 POC ABG pO2 Sodium 136 L D Potassium 2.0 L* D Chloride 120.0 H 97.9 L Carbon Dioxide 15 L D BUN 34 H 54 H Creatinine 1.9 H D Glucose 138 H 205 H POC Glucose 210 H Uric Acid Calcium 4.8 L* D Total Bilirubin Alkaline Phosphatase 33 L CK-MB (CK-2) CK-MB (CK-2) Rel Index Total Protein 3.0 L D Albumin 1.4 L Urine WBC (Auto) 01/24/17 01/24/17 01/24/17 16:54 23:35 Unknown WBC RDW 18.6 H Plt Count 138 L Lymph % (Auto) [place] % (Auto) Eos % (Auto) Baso % (Auto) Lymph # [place] # Seg Neutrophils % Seg Neuts % (Manual) 71.0 H Lymphocytes % (Manual) 5.0 L Monocytes % (Manual) 18.0 H Eosinophils % (Manual) 5.0 H Seg Neutrophils # Lymphocytes # (Manual) 0.4 L Monocytes # (Manual) 1.3 H POC ABG pH POC ABG pCO2 POC ABG pO2 Sodium Potassium Chloride Carbon Dioxide BUN Creatinine Glucose POC Glucose 227 H 260 H Uric Acid Calcium Total Bilirubin Alkaline Phosphatase CK-MB (CK-2) CK-MB (CK-2) Rel Index Total Protein Albumin Urine WBC (Auto) 01/25/17 01/25/17 01/25/17 05:52 07:54 07:54 WBC RDW 18.9 H Plt Count Lymph % (Auto) [place] % (Auto) Eos % (Auto) Baso % (Auto) Lymph # [place] # Seg Neutrophils % Seg Neuts % (Manual) Lymphocytes % (Manual) Monocytes % (Manual) Eosinophils % (Manual) Seg Neutrophils # Lymphocytes # (Manual) Monocytes # (Manual) POC ABG pH POC ABG pCO2 POC ABG pO2 Sodium 135 L Potassium Chloride 97.0 L Carbon Dioxide BUN 55 H Creatinine 1.6 H Glucose 235 H POC Glucose 226 H Uric Acid Calcium Total Bilirubin Alkaline Phosphatase CK-MB (CK-2) CK-MB (CK-2) Rel Index Total Protein Albumin Urine WBC (Auto) 01/25/17 01/25/17 01/25/17 11:38 17:15 23:21 WBC RDW Plt Count Lymph % (Auto) [place] % (Auto) Eos % (Auto) Baso % (Auto) Lymph # [place] # Seg Neutrophils % Seg Neuts % (Manual) Lymphocytes % (Manual) Monocytes % (Manual) Eosinophils % (Manual) Seg Neutrophils # Lymphocytes # (Manual) Monocytes # (Manual) POC ABG pH POC ABG pCO2 POC ABG pO2 Sodium Potassium Chloride Carbon Dioxide BUN Creatinine Glucose POC Glucose 226 H 249 H 245 H Uric Acid Calcium Total Bilirubin Alkaline Phosphatase CK-MB (CK-2) CK-MB (CK-2) Rel Index Total Protein Albumin Urine WBC (Auto) 01/26/17 01/26/17 01/26/17 05:27 12:52 18:16 WBC RDW Plt Count Lymph % (Auto) [place] % (Auto) Eos % (Auto) Baso % (Auto) Lymph # [place] # Seg Neutrophils % Seg Neuts % (Manual) Lymphocytes % (Manual) Monocytes % (Manual) Eosinophils % (Manual) Seg Neutrophils # Lymphocytes # (Manual) Monocytes # (Manual) POC ABG pH POC ABG pCO2 POC ABG pO2 Sodium Potassium Chloride Carbon Dioxide BUN Creatinine Glucose POC Glucose 244 H 231 H 231 H Uric Acid Calcium Total Bilirubin Alkaline Phosphatase CK-MB (CK-2) CK-MB (CK-2) Rel Index Total Protein Albumin Urine WBC (Auto) 01/26/17 01/26/17 01/27/17 18:18 23:33 04:45 WBC RDW 18.6 H Plt Count Lymph % (Auto) 4.6 L [place] % (Auto) 13.6 H Eos % (Auto) 4.4 H Baso % (Auto) Lymph # 0.4 L [place] # 1.1 H Seg Neutrophils % 76.5 H Seg Neuts % (Manual) Lymphocytes % (Manual) Monocytes % (Manual) Eosinophils % (Manual) Seg Neutrophils # Lymphocytes # (Manual) Monocytes # (Manual) POC ABG pH POC ABG pCO2 POC ABG pO2 Sodium Potassium Chloride Carbon Dioxide BUN Creatinine Glucose POC Glucose 191 H 202 H Uric Acid Calcium Total Bilirubin Alkaline Phosphatase CK-MB (CK-2) CK-MB (CK-2) Rel Index Total Protein Albumin Urine WBC (Auto) 01/27/17 01/27/17 01/27/17 04:45 05:36 12:24 WBC RDW Plt Count Lymph % (Auto) [place] % (Auto) Eos % (Auto) Baso % (Auto) Lymph # [place] # Seg Neutrophils % Seg Neuts % (Manual) Lymphocytes % (Manual) Monocytes % (Manual) Eosinophils % (Manual) Seg Neutrophils # Lymphocytes # (Manual) Monocytes # (Manual) POC ABG pH POC ABG pCO2 POC ABG pO2 Sodium Potassium Chloride Carbon Dioxide BUN 54 H Creatinine Glucose 202 H POC Glucose 202 H 219 H Uric Acid Calcium Total Bilirubin Alkaline Phosphatase CK-MB (CK-2) CK-MB (CK-2) Rel Index Total Protein Albumin Urine WBC (Auto) 01/27/17 01/27/17 01/28/17 17:44 23:38 04:00 WBC RDW Plt Count Lymph % (Auto) [place] % (Auto) Eos % (Auto) Baso % (Auto) Lymph # [place] # Seg Neutrophils % Seg Neuts % (Manual) Lymphocytes % (Manual) Monocytes % (Manual) Eosinophils % (Manual) Seg Neutrophils # Lymphocytes # (Manual) Monocytes # (Manual) POC ABG pH POC ABG pCO2 POC ABG pO2 Sodium Potassium Chloride Carbon Dioxide BUN Creatinine Glucose POC Glucose 237 H 253 H 236 H Uric Acid Calcium Total Bilirubin Alkaline Phosphatase CK-MB (CK-2) CK-MB (CK-2) Rel Index Total Protein Albumin Urine WBC (Auto) 01/28/17 01/28/17 01/28/17 05:00 05:00 12:02 WBC RDW 18.6 H Plt Count Lymph % (Auto) 4.8 L [place] % (Auto) 13.0 H Eos % (Auto) 4.8 H Baso % (Auto) Lymph # 0.4 L [place] # 1.2 H Seg Neutrophils % 76.3 H Seg Neuts % (Manual) Lymphocytes % (Manual) Monocytes % (Manual) Eosinophils % (Manual) Seg Neutrophils # Lymphocytes # (Manual) Monocytes # (Manual) POC ABG pH POC ABG pCO2 POC ABG pO2 Sodium 136 L Potassium Chloride Carbon Dioxide BUN 56 H Creatinine 1.4 H Glucose 225 H POC Glucose 195 H Uric Acid Calcium Total Bilirubin Alkaline Phosphatase CK-MB (CK-2) CK-MB (CK-2) Rel Index Total Protein Albumin Urine WBC (Auto) 01/28/17 01/28/17 01/29/17 17:57 23:50 04:57 WBC RDW Plt Count Lymph % (Auto) [place] % (Auto) Eos % (Auto) Baso % (Auto) Lymph # [place] # Seg Neutrophils % Seg Neuts % (Manual) Lymphocytes % (Manual) Monocytes % (Manual) Eosinophils % (Manual) Seg Neutrophils # Lymphocytes # (Manual) Monocytes # (Manual) POC ABG pH POC ABG pCO2 POC ABG pO2 Sodium Potassium Chloride Carbon Dioxide BUN Creatinine Glucose POC Glucose 193 H 181 H 199 H Uric Acid Calcium Total Bilirubin Alkaline Phosphatase CK-MB (CK-2) CK-MB (CK-2) Rel Index Total Protein Albumin Urine WBC (Auto) 01/29/17 01/29/17 01/29/17 05:30 05:30 11:20 WBC RDW 18.6 H Plt Count Lymph % (Auto) 4.3 L [place] % (Auto) 11.9 H Eos % (Auto) 5.0 H Baso % (Auto) Lymph # 0.3 L [place] # 1.0 H Seg Neutrophils % 78.1 H Seg Neuts % (Manual) Lymphocytes % (Manual) Monocytes % (Manual) Eosinophils % (Manual) Seg Neutrophils # Lymphocytes # (Manual) Monocytes # (Manual) POC ABG pH POC ABG pCO2 POC ABG pO2 Sodium Potassium Chloride 97.9 L Carbon Dioxide BUN 59 H Creatinine 1.6 H Glucose 220 H POC Glucose 215 H Uric Acid Calcium Total Bilirubin Alkaline Phosphatase CK-MB (CK-2) CK-MB (CK-2) Rel Index Total Protein Albumin Urine WBC (Auto) 01/29/17 01/30/17 01/30/17 17:37 04:00 04:00 WBC RDW 18.7 H Plt Count Lymph % (Auto) 6.6 L [place] % (Auto) 12.2 H Eos % (Auto) 4.4 H Baso % (Auto) Lymph # 0.6 L [place] # 1.1 H Seg Neutrophils % 76.3 H Seg Neuts % (Manual) Lymphocytes % (Manual) Monocytes % (Manual) Eosinophils % (Manual) Seg Neutrophils # Lymphocytes # (Manual) Monocytes # (Manual) POC ABG pH POC ABG pCO2 POC ABG pO2 Sodium 136 L Potassium Chloride 96.8 L Carbon Dioxide BUN 58 H Creatinine 1.9 H Glucose 121 H POC Glucose 147 H Uric Acid Calcium Total Bilirubin Alkaline Phosphatase CK-MB (CK-2) CK-MB (CK-2) Rel Index Total Protein Albumin Urine WBC (Auto) 01/30/17 01/30/17 05:30 12:08 WBC RDW Plt Count Lymph % (Auto) [place] % (Auto) Eos % (Auto) Baso % (Auto) Lymph # [place] # Seg Neutrophils % Seg Neuts % (Manual) Lymphocytes % (Manual) Monocytes % (Manual) Eosinophils % (Manual) Seg Neutrophils # Lymphocytes # (Manual) Monocytes # (Manual) POC ABG pH POC ABG pCO2 POC ABG pO2 Sodium Potassium Chloride Carbon Dioxide BUN Creatinine Glucose POC Glucose 136 H 175 H Uric Acid Calcium Total Bilirubin Alkaline Phosphatase CK-MB (CK-2) CK-MB (CK-2) Rel Index Total Protein Albumin Urine WBC (Auto) Chest x-ray: image reviewed (chest x-ray show cardiomegaly and area of discoid atelectasis no acute finding)
--- NOTE | 2017-01-30 15:22 | Progress Note ---
Assessment and Plan Assessment: Acute kidney injury attributed to prerenal azotemia s/p PEA arrest Dilated cardiomyopathy - EF 10-15% Acute systolic heart failure Acute hypoxic respiratory failure - currently on bipap Plan: Patient is s/p Lasix 40mg IV yesterday - UOP 1.4 liters; SCr increased to 1.9mg/ dL - will hold Lasix today Rate control per cardiology Strict I/O Avoid potential nephrotoxins Dose medications for renal function Subjective Date of service: 01/30/17 Principal diagnosis: CHF exacerbation Interval history: No acute events overnight. Objective - Vital Signs Vital signs: Vital Signs - 12hr 01/30/17 01/30/17 01/30/17 04:00 05:00 06:00 Temperature 97.5 F L Pulse Rate 83 82 92 H Respiratory 14 31 H 29 H Rate Blood Pressure 116/74 142/98 140/90 O2 Sat by Pulse 92 96 95 Oximetry 01/30/17 01/30/17 01/30/17 07:00 07:46 08:00 Temperature 97.6 F Pulse Rate 88 84 Respiratory 33 H 34 H Rate Blood Pressure 135/91 133/96 O2 Sat by Pulse 94 96 Oximetry 01/30/17 01/30/17 01/30/17 08:18 08:38 09:00 Temperature Pulse Rate 91 H 90 86 Respiratory 36 H 33 H Rate Blood Pressure 133/96 133/96 130/89 O2 Sat by Pulse 96 93 Oximetry 01/30/17 01/30/17 01/30/17 10:00 11:00 12:00 Temperature 97.6 F Pulse Rate 74 77 72 Respiratory 25 H 22 22 Rate Blood Pressure 127/81 95/68 108/75 O2 Sat by Pulse 95 96 98 Oximetry 01/30/17 13:00 Temperature Pulse Rate 75 Respiratory 22 Rate Blood Pressure 129/86 O2 Sat by Pulse 98 Oximetry - General Appearance General appearance: well-developed, well-nourished, obese, other (on bipap; no acute distress) EENT: ATNC Respiratory: Present: Other (coarse BS) Cardiology: regular, S1S2 Gastrointestinal: obese Integumentary: hyperpigmentation Psychiatric: cooperative - Lab 01/30/17 04:00 01/30/17 04:00 Most recent lab results Calcium 9.6 mg/dL (8.4-10.2) 01/30/17 04:00 Magnesium 2.00 mg/dL (1.7-2.3) 01/29/17 05:30
[2017-01-30 16:02] LABS: ISTAT Base Excess 0; ISTAT HCO3 25.9; ISTAT PCO2 46.4 (35-45); ISTAT PH 7.355 (7.35-7.45); ISTAT PO2 84 (80-105); ISTAT SO2 96; ISTAT TCO2 27
[2017-01-31] MEDS: NOVOLOG SUB-Q SCH ×4 (00:51→17:41)
[2017-01-31 05:12] LABS: Basophils % (Auto) 0.6 % (0.0-1.8); Eosinophils % (Auto) 4.6 % (0.0-4.3); Hematocrit 40.6 % (30.3-42.9); Hemoglobin 13.1 gm/dl (10.1-14.3); Mean Corpuscular HGB Conc 32 % (30-34); Mean Corpuscular Hemoglobin 28 pg (28-32); Mean Corpuscular Volume 88 fl (79-97); Platelet Count 202 K/mm3 (140-440); Red Blood Count 4.62 M/mm3 (3.65-5.03); Red Cell Distribution Width 18.7 % (13.2-15.2); White Blood Count 9.8 K/mm3 (4.5-11.0)
[2017-01-31 05:26] LABS: BUN/Creatinine Ratio 32.1; Calcium 9.2 mg/dL (8.4-10.2); Chloride 93.2 mmol/L (98-107); Potassium 4.4 mmol/L (3.6-5.0)
[2017-01-31] MEDS: HEPARIN SUB-Q SCH ×3 (06:10→21:46)
--- NOTE | 2017-01-31 08:38 | XRay Report ---
Portable chest: Respiratory failure. As a focal linear area of increased density in the left midlung. There is mild thickening of the right minor fissure. There is blunting of the right ankle and slight thickening of the lower lateral right pleural surface. The heart is enlarged and there is mild vascular congestion in the upper lobes. Nasogastric tube and left PICC line tip are both in good positions. Compared to the prior examination of January 26 the findings do not appear significantly changed. Impression: Mild congestive changes with right pleural effusion. Focal left atelectasis.
--- NOTE | 2017-01-31 09:55 | XRay Report ---
KUB: Tube placement. There is a Dobbhoff catheter in the mid stomach region. The exam is limited to the left upper quadrant. There is opacity at the left lung base with air bronchogram.
--- NOTE | 2017-01-31 09:59 | Progress Note ---
Assessment and Plan S/p PEA cardiorespiratory arrest 01/19 Extubated Ade negative for AMI s/p code; ECG with no ischemic changes Dobutamine gtt d/c'd s/p IV amio 150mg bolus x 1. 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 Aspiration PNA ID following. CIERRA / Hyperkalemia nephrology following Hyponatremia monitor Accelerated junction arrhythmia vs sinus with long NM interval Per EP, QRS vector same as office EKG unlikely VT Also with intermittent SR with prolonged NM v. IVCD v. idioventricular rhythm noted on tele. continue lopressor Cardiomyopathy EF 10 - 15% will add bumex for chf in view of cont hypoxia and start low dose lopressor and add amio po and hold deric and arb in view of renal insufficency and low bp, pt awaiting ltach, - Patient Problems (1) Acute exacerbation of CHF (congestive heart failure) Current Visit: Yes Status: Acute Qualifiers: Congestive heart failure type: combined Qualified Code(s): I50.43 - Acute on chronic combined systolic (congestive) and diastolic (congestive) heart failure (2) Aspiration pneumonia Current Visit: Yes Status: Acute Qualifiers: Aspiration pneumonia type: A Laterality: L Lung location: L (3) HTN (hypertension) Current Visit: Yes Status: Chronic Qualifiers: Hypertension type: essential hypertension Qualified Code(s): I10 - Essential (primary) hypertension (4) Morbid obesity with BMI of 50.0-59.9, adult Current Visit: Yes Status: Chronic (5) Acute exacerbation of CHF (congestive heart failure) Current Visit: No Status: Acute Qualifiers: Congestive heart failure type: C (6) Acute and chronic respiratory failure Current Visit: No Status: Chronic Qualifiers: Respiratory failure complication: R (7) Sleep apnea Current Visit: No Status: Chronic Qualifiers: Sleep apnea type: S Subjective Date of service: 01/31/17 Principal diagnosis: CHF exacerbation Interval history: pt lying flat on bipap Objective Vital Signs Temp Pulse Pulse Pulse Resp BP Pulse Ox 01/31/17 09:12 86 31 H 203/157 97 01/31/17 08:44 93 01/31/17 08:35 95 01/31/17 08:29 76 23 163/80 99 01/31/17 07:25 97.3 F L 01/31/17 07:00 78 24 156/79 96 01/31/17 06:00 76 25 H 136/81 93 01/31/17 05:00 76 20 147/90 94 01/31/17 04:00 97.4 F L 79 78 25 H 150/82 97 01/31/17 03:00 73 22 137/79 95 01/31/17 02:00 73 18 141/94 94 01/31/17 01:00 74 21 146/100 95 01/31/17 00:39 73 01/31/17 00:00 97.6 F 74 80 17 146/79 92 01/30/17 23:00 78 27 H 139/88 98 01/30/17 22:08 73 19 138/90 97 01/30/17 22:00 76 28 H 138/90 93 01/30/17 21:00 72 26 H 138/87 95 01/30/17 20:04 75 20 134/90 98 01/30/17 20:00 97.4 F L 71 85 18 137/88 97 01/30/17 19:00 76 28 H 131/76 98 01/30/17 18:00 67 20 113/65 01/30/17 17:00 74 24 128/83 94 01/30/17 16:00 71 15 117/76 98 01/30/17 15:44 97.6 F 01/30/17 15:00 73 18 117/76 01/30/17 14:00 81 20 129/87 94 01/30/17 13:00 75 22 129/86 98 01/30/17 12:00 97.6 F 72 20 108/75 97 01/30/17 11:00 77 22 95/68 96 01/30/17 10:00 74 25 H 127/81 95 - Physical Examination General: Appears Well, No Apparent Distress HEENT: Positive: PERRL, EOMI, Normocephaly Neck: Positive: neck supple, trachea midline, JVD/HJR (JVD +) Cardiac: Positive: Reg Rate and Rhythm Lungs: Positive: clear to auscultation Neuro: Positive: Grossly Intact Abdomen: Positive: Unremarkable, Soft, Active Bowel Sounds Skin: Negative: Rash, Suspicious Lesions Musculoskeletal: No Fluid Collection, No Pain Extremities: Present: warm, Other (chronic venous stasis changes). Absent: edema - Labs and Meds CBC 07/31/17 Range/Units 04:30 WBC 9.8 (4.5-11.0) K/mm3 RBC 4.62 (3.65-5.03) M/mm3 Hgb 13.1 (10.1-14.3) gm/dl Hct 40.6 (30.3-42.9) % Plt Count 202 (140-440) K/mm3 Lymph # 0.5 L (1.2-5.4) K/mm3 [place] # 0.9 H (0.0-0.8) K/mm3 Eos # 0.4 (0.0-0.4) K/mm3 Baso # 0.1 (0.0-0.1) K/mm3 Comprehensive Metabolic Panel 01/31/17 Range/Units 04:30 Sodium 132 L (137-145) mmol/L Potassium 4.4 (3.6-5.0) mmol/L Chloride 93.2 L (98-107) mmol/L Carbon Dioxide 26 (22-30) mmol/L BUN 61 H (7-17) mg/dL Creatinine 1.9 H (0.7-1.2) mg/dL Glucose 300 H (65-100) mg/dL Calcium 9.2 (8.4-10.2) mg/dL - Imaging and Cardiology EKG: report reviewed (Tachycardia of 128/min Junctional rhythm), image reviewed Stress echo: report reviewed (Cardiac PET 11/11: very small mild anterior, anteroapical mild reversible defect. EF stress 58%) Echo: report reviewed (ECHO 11/16: TDS, EF cannot be determined due to poor image quality, ) Cardiac cath: report reviewed ([facility] 06/07: LM: patent, LCX: diffuse disease, LAD: diffuse disease, RCA: diffuse disease, mid 40%) - Telemetry EKG Rhythm: Sinus Rhythm
--- NOTE | 2017-01-31 10:40 | Progress Note ---
Assessment and Plan Assessment: Nonoliguric acute kidney injury attributed to prerenal azotemia s/p PEA arrest Dilated cardiomyopathy - EF 10-15% Acute systolic heart failure Acute hypoxic respiratory failure - currently on bipap Plan: Renal function is stable. UOP 2.2 liters yesterday Diuresis prn - recommend holding today Rate control per cardiology Strict I/O Avoid potential nephrotoxins Dose medications for renal function Subjective Date of service: 01/31/17 Principal diagnosis: CHF exacerbation Interval history: No acute events overnight Objective - Vital Signs Vital signs: Vital Signs - 12hr 01/30/17 01/31/17 01/31/17 23:00 00:00 00:39 Temperature 97.6 F Pulse Rate 78 74 73 Pulse Rate [ From Monitor] Pulse Rate [ 80 Left Radial] Respiratory 27 H 17 Rate Blood Pressure 139/88 146/79 O2 Sat by Pulse 98 92 Oximetry 01/31/17 01/31/17 01/31/17 01:00 02:00 03:00 Temperature Pulse Rate 74 73 73 Pulse Rate [ From Monitor] Pulse Rate [ Left Radial] Respiratory 21 18 22 Rate Blood Pressure 146/100 141/94 137/79 O2 Sat by Pulse 95 94 95 Oximetry 01/31/17 01/31/17 01/31/17 04:00 05:00 06:00 Temperature 97.4 F L Pulse Rate 79 76 76 Pulse Rate [ 78 From Monitor] Pulse Rate [ Left Radial] Respiratory 25 H 20 25 H Rate Blood Pressure 150/82 147/90 136/81 O2 Sat by Pulse 97 94 93 Oximetry 01/31/17 01/31/17 01/31/17 07:00 07:25 08:29 Temperature 97.3 F L Pulse Rate 78 76 Pulse Rate [ From Monitor] Pulse Rate [ Left Radial] Respiratory 24 23 Rate Blood Pressure 156/79 163/80 O2 Sat by Pulse 96 99 Oximetry 01/31/17 01/31/17 01/31/17 08:35 08:44 09:12 Temperature Pulse Rate 86 Pulse Rate [ From Monitor] Pulse Rate [ Left Radial] Respiratory 31 H Rate Blood Pressure 203/157 O2 Sat by Pulse 95 93 97 Oximetry - General Appearance General appearance: well-developed, well-nourished, other (on bipap) EENT: ATNC Respiratory: Present: Other (Diminished breath sounds) Cardiology: regular, S1S2 Gastrointestinal: no tenderness, no distended, obese Integumentary: hyperpigmentation (chronic venous stasis ) Neurologic: no focal deficit Psychiatric: cooperative - Lab 01/31/17 04:30 01/31/17 04:30 Most recent lab results Calcium 9.2 mg/dL (8.4-10.2) 01/31/17 04:30 Magnesium 2.00 mg/dL (1.7-2.3) 01/29/17 05:30
--- NOTE | 2017-01-31 11:13 | Progress Note ---
Assessment and Plan 71 y/o female with acute respiratory failure, acute renal failure and dilated cardiomyopathy 1. Net negative state if possible 2. Follow up renal recs 3. continue bipap therapy for now, may attempt HFNC tomorrow 4. Ok with transfer to LTACH when bed available CCT 31 minutes. Subjective Date of service: 01/31/17 Principal diagnosis: CHF exacerbation Interval history: No acute events. Unable to tolerate being off bipap so placed back on. Cards saw this am and has placed back on Bumex. No family at bedside. Per CM, LTACH placement is pending. Objective Vital Signs - 12hr 01/30/17 01/31/17 01/31/17 23:00 00:00 00:39 Temperature 97.6 F Pulse Rate 78 74 73 Pulse Rate [ From Monitor] Pulse Rate [ 80 Left Radial] Respiratory 27 H 17 Rate Blood Pressure 139/88 146/79 O2 Sat by Pulse 98 92 Oximetry 01/31/17 01/31/17 01/31/17 01:00 02:00 03:00 Temperature Pulse Rate 74 73 73 Pulse Rate [ From Monitor] Pulse Rate [ Left Radial] Respiratory 21 18 22 Rate Blood Pressure 146/100 141/94 137/79 O2 Sat by Pulse 95 94 95 Oximetry 01/31/17 01/31/17 01/31/17 04:00 05:00 06:00 Temperature 97.4 F L Pulse Rate 79 76 76 Pulse Rate [ 78 From Monitor] Pulse Rate [ Left Radial] Respiratory 25 H 20 25 H Rate Blood Pressure 150/82 147/90 136/81 O2 Sat by Pulse 97 94 93 Oximetry 01/31/17 01/31/17 01/31/17 07:00 07:25 08:29 Temperature 97.3 F L Pulse Rate 78 76 Pulse Rate [ From Monitor] Pulse Rate [ Left Radial] Respiratory 24 23 Rate Blood Pressure 156/79 163/80 O2 Sat by Pulse 96 99 Oximetry 01/31/17 01/31/17 01/31/17 08:35 08:44 09:12 Temperature Pulse Rate 86 Pulse Rate [ From Monitor] Pulse Rate [ Left Radial] Respiratory 31 H Rate Blood Pressure 203/157 O2 Sat by Pulse 95 93 97 Oximetry Constitutional: no acute distress, alert Eyes: non-icteric ENT: other (on BiPAP) Neck: supple, no JVD Effort: normal Ascultation: Bilateral: clear, diminished breath sounds (bases), rhonchi ( bilateral), other (coarse, equal BS bilaterally) Cardiovascular: irregular rhythm Gastrointestinal: normoactive bowel sounds, soft, other (obese) Integumentary: normal Extremities: no cyanosis, no edema, pink and warm, other (SCDs are in place) Neurologic: normal mental status, non-focal exam, pupils equal and round Psychiatric: mood appropriate, affect normal CBC and BMP: 01/31/17 04:30 01/31/17 04:30 ABG, PT/INR, D-dimer: ABG POC ABG pH 7.355 (7.35-7.45) 01/30/17 15:54 POC ABG pCO2 46.4 (35-45) H 01/30/17 15:54 POC ABG pO2 84 (80-105) 01/30/17 15:54 POC ABG HCO3 25.9 01/30/17 15:54 POC ABG Total CO2 27 01/30/17 15:54 POC ABG O2 Sat 96 01/30/17 15:54 Abnormal lab findings: Abnormal Labs 01/15/17 01/15/17 01/15/17 17:45 22:06 23:40 WBC RDW 18.6 H Plt Count 114 L Lymph % (Auto) [place] % (Auto) Eos % (Auto) Baso % (Auto) Lymph # [place]bert # Seg Neutrophils % Seg Neuts % (Manual) 82.0 H Lymphocytes % (Manual) 7.0 L Monocytes % (Manual) Eosinophils % (Manual) Seg Neutrophils # Lymphocytes # (Manual) 0.4 L Monocytes # (Manual) POC ABG pH POC ABG pCO2 POC ABG pO2 Sodium Potassium Chloride Carbon Dioxide BUN Creatinine Glucose POC Glucose 147 H 135 H Uric Acid Calcium Total Bilirubin Alkaline Phosphatase CK-MB (CK-2) CK-MB (CK-2) Rel Index Total Protein Albumin Urine WBC (Auto) 01/15/17 01/16/17 01/16/17 23:40 03:44 08:49 WBC RDW Plt Count Lymph % (Auto) [place]bert % (Auto) Eos % (Auto) Baso % (Auto) Lymph # [place] # Seg Neutrophils % Seg Neuts % (Manual) Lymphocytes % (Manual) Monocytes % (Manual) Eosinophils % (Manual) Seg Neutrophils # Lymphocytes # (Manual) Monocytes # (Manual) POC ABG pH POC ABG pCO2 POC ABG pO2 Sodium 132 L Potassium 5.1 H Chloride 95.5 L Carbon Dioxide 20 L BUN 36 H Creatinine Glucose 128 H POC Glucose 117 H 126 H Uric Acid Calcium Total Bilirubin Alkaline Phosphatase CK-MB (CK-2) CK-MB (CK-2) Rel Index Total Protein Albumin Urine WBC (Auto) 01/16/17 01/16/17 01/16/17 08:56 08:56 12:06 WBC RDW 19.2 H Plt Count Lymph % (Auto) 6.6 L [place] % (Auto) 12.0 H Eos % (Auto) 5.8 H Baso % (Auto) 1.9 H Lymph # 0.3 L [place] # Seg Neutrophils % 73.7 H Seg Neuts % (Manual) Lymphocytes % (Manual) Monocytes % (Manual) Eosinophils % (Manual) Seg Neutrophils # Lymphocytes # (Manual) Monocytes # (Manual) POC ABG pH POC ABG pCO2 POC ABG pO2 Sodium 132 L Potassium Chloride 95.1 L Carbon Dioxide 19 L BUN 36 H Creatinine 1.3 H Glucose 129 H POC Glucose 172 H Uric Acid Calcium Total Bilirubin 1.40 H Alkaline Phosphatase CK-MB (CK-2) CK-MB (CK-2) Rel Index Total Protein 6.2 L Albumin 3.1 L Urine WBC (Auto) 01/16/17 01/17/17 01/17/17 22:34 05:29 05:29 WBC RDW 19.2 H Plt Count Lymph % (Auto) 5.9 L [place] % (Auto) 10.8 H Eos % (Auto) Baso % (Auto) Lymph # 0.4 L [place] # Seg Neutrophils % 80.1 H Seg Neuts % (Manual) Lymphocytes % (Manual) Monocytes % (Manual) Eosinophils % (Manual) Seg Neutrophils # Lymphocytes # (Manual) Monocytes # (Manual) POC ABG pH POC ABG pCO2 POC ABG pO2 Sodium 131 L Potassium 5.3 H Chloride 94.8 L Carbon Dioxide 21 L BUN 39 H Creatinine 1.4 H Glucose 196 H POC Glucose 210 H Uric Acid Calcium Total Bilirubin Alkaline Phosphatase CK-MB (CK-2) CK-MB (CK-2) Rel Index Total Protein Albumin Urine WBC (Auto) 01/17/17 01/17/17 01/17/17 07:39 17:39 22:45 WBC RDW Plt Count Lymph % (Auto) [place]bert % (Auto) Eos % (Auto) Baso % (Auto) Lymph # [place] # Seg Neutrophils % Seg Neuts % (Manual) Lymphocytes % (Manual) Monocytes % (Manual) Eosinophils % (Manual) Seg Neutrophils # Lymphocytes # (Manual) Monocytes # (Manual) POC ABG pH POC ABG pCO2 POC ABG pO2 Sodium Potassium Chloride Carbon Dioxide BUN Creatinine Glucose POC Glucose 198 H 208 H 223 H Uric Acid Calcium Total Bilirubin Alkaline Phosphatase CK-MB (CK-2) CK-MB (CK-2) Rel Index Total Protein Albumin Urine WBC (Auto) 01/18/17 01/18/17 01/18/17 05:07 08:32 12:24 WBC RDW Plt Count Lymph % (Auto) [place] % (Auto) Eos % (Auto) Baso % (Auto) Lymph # [place] # Seg Neutrophils % Seg Neuts % (Manual) Lymphocytes % (Manual) Monocytes % (Manual) Eosinophils % (Manual) Seg Neutrophils # Lymphocytes # (Manual) Monocytes # (Manual) POC ABG pH POC ABG pCO2 POC ABG pO2 Sodium 129 L Potassium 5.2 H Chloride 92.0 L Carbon Dioxide BUN 41 H Creatinine 1.5 H Glucose 228 H POC Glucose 236 H 230 H Uric Acid Calcium Total Bilirubin Alkaline Phosphatase CK-MB (CK-2) CK-MB (CK-2) Rel Index Total Protein Albumin Urine WBC (Auto) 01/18/17 01/19/17 01/19/17 16:00 03:46 03:46 WBC RDW 18.9 H Plt Count Lymph % (Auto) [place] % (Auto) Eos % (Auto) Baso % (Auto) Lymph # [place] # Seg Neutrophils % Seg Neuts % (Manual) Lymphocytes % (Manual) Monocytes % (Manual) Eosinophils % (Manual) Seg Neutrophils # Lymphocytes # (Manual) Monocytes # (Manual) POC ABG pH POC ABG pCO2 POC ABG pO2 Sodium 128 L Potassium Chloride 92.3 L Carbon Dioxide 21 L BUN 40 H Creatinine 1.4 H Glucose 178 H POC Glucose 253 H Uric Acid Calcium Total Bilirubin Alkaline Phosphatase CK-MB (CK-2) CK-MB (CK-2) Rel Index Total Protein Albumin Urine WBC (Auto) 01/19/17 01/19/17 01/19/17 09:21 11:45 13:02 WBC RDW Plt Count Lymph % (Auto) [place] % (Auto) Eos % (Auto) Baso % (Auto) Lymph # [place] # Seg Neutrophils % Seg Neuts % (Manual) Lymphocytes % (Manual) Monocytes % (Manual) Eosinophils % (Manual) Seg Neutrophils # Lymphocytes # (Manual) Monocytes # (Manual) POC ABG pH POC ABG pCO2 POC ABG pO2 Sodium 131 L Potassium Chloride 92.8 L Carbon Dioxide BUN 39 H Creatinine 1.4 H Glucose 159 H POC Glucose 135 H 125 H Uric Acid Calcium Total Bilirubin Alkaline Phosphatase CK-MB (CK-2) 4.1 H CK-MB (CK-2) Rel Index 4.1 H Total Protein Albumin Urine WBC (Auto) 01/19/17 01/20/17 01/20/17 15:48 04:00 05:45 WBC 11.5 H RDW 18.9 H Plt Count 131 L Lymph % (Auto) [place] % (Auto) Eos % (Auto) Baso % (Auto) Lymph # [place] # Seg Neutrophils % Seg Neuts % (Manual) Lymphocytes % (Manual) Monocytes % (Manual) Eosinophils % (Manual) Seg Neutrophils # Lymphocytes # (Manual) Monocytes # (Manual) POC ABG pH POC ABG pCO2 POC ABG pO2 189 H Sodium 129 L Potassium Chloride 91.4 L Carbon Dioxide BUN 37 H Creatinine 1.3 H Glucose POC Glucose Uric Acid Calcium Total Bilirubin Alkaline Phosphatase CK-MB (CK-2) CK-MB (CK-2) Rel Index Total Protein Albumin Urine WBC (Auto) 01/20/17 01/20/17 01/21/17 06:09 09:34 00:26 WBC RDW Plt Count Lymph % (Auto) [place] % (Auto) Eos % (Auto) Baso % (Auto) Lymph # [place] # Seg Neutrophils % Seg Neuts % (Manual) Lymphocytes % (Manual) Monocytes % (Manual) Eosinophils % (Manual) Seg Neutrophils # Lymphocytes # (Manual) Monocytes # (Manual) POC ABG pH POC ABG pCO2 POC ABG pO2 67 L Sodium Potassium Chloride Carbon Dioxide BUN Creatinine Glucose POC Glucose 109 H Uric Acid Calcium Total Bilirubin Alkaline Phosphatase CK-MB (CK-2) CK-MB (CK-2) Rel Index Total Protein Albumin Urine WBC (Auto) 15.0 H 01/21/17 01/21/17 01/21/17 04:23 05:20 05:20 WBC 11.8 H RDW 18.9 H Plt Count 135 L Lymph % (Auto) [place] % (Auto) Eos % (Auto) Baso % (Auto) Lymph # [place] # Seg Neutrophils % Seg Neuts % (Manual) Lymphocytes % (Manual) Monocytes % (Manual) Eosinophils % (Manual) Seg Neutrophils # Lymphocytes # (Manual) Monocytes # (Manual) POC ABG pH 7.338 L POC ABG pCO2 48.6 H POC ABG pO2 67 L Sodium 134 L Potassium Chloride 95.5 L Carbon Dioxide BUN 38 H Creatinine 1.5 H Glucose 110 H POC Glucose Uric Acid Calcium Total Bilirubin Alkaline Phosphatase CK-MB (CK-2) CK-MB (CK-2) Rel Index Total Protein Albumin Urine WBC (Auto) 01/21/17 01/21/17 01/21/17 05:38 18:20 22:54 WBC RDW Plt Count Lymph % (Auto) [place] % (Auto) Eos % (Auto) Baso % (Auto) Lymph # [place] # Seg Neutrophils % Seg Neuts % (Manual) Lymphocytes % (Manual) Monocytes % (Manual) Eosinophils % (Manual) Seg Neutrophils # Lymphocytes # (Manual) Monocytes # (Manual) POC ABG pH POC ABG pCO2 POC ABG pO2 Sodium Potassium Chloride Carbon Dioxide BUN Creatinine Glucose POC Glucose 120 H 135 H 163 H Uric Acid Calcium Total Bilirubin Alkaline Phosphatase CK-MB (CK-2) CK-MB (CK-2) Rel Index Total Protein Albumin Urine WBC (Auto) 01/22/17 01/22/17 01/22/17 04:00 04:00 11:27 WBC 11.6 H RDW 18.7 H Plt Count 116 L Lymph % (Auto) 2.9 L [place] % (Auto) 11.1 H Eos % (Auto) Baso % (Auto) Lymph # 0.3 L [place] # 1.3 H Seg Neutrophils % 84.2 H Seg Neuts % (Manual) Lymphocytes % (Manual) Monocytes % (Manual) Eosinophils % (Manual) Seg Neutrophils # 9.8 H Lymphocytes # (Manual) Monocytes # (Manual) POC ABG pH POC ABG pCO2 POC ABG pO2 Sodium 135 L Potassium Chloride 94.6 L Carbon Dioxide BUN 43 H Creatinine 1.9 H Glucose 148 H POC Glucose 151 H Uric Acid Calcium Total Bilirubin 1.60 H Alkaline Phosphatase CK-MB (CK-2) CK-MB (CK-2) Rel Index Total Protein 5.6 L Albumin 2.8 L Urine WBC (Auto) 01/22/17 01/22/17 01/22/17 11:37 13:00 17:14 WBC RDW Plt Count Lymph % (Auto) [place] % (Auto) Eos % (Auto) Baso % (Auto) Lymph # [place] # Seg Neutrophils % Seg Neuts % (Manual) Lymphocytes % (Manual) Monocytes % (Manual) Eosinophils % (Manual) Seg Neutrophils # Lymphocytes # (Manual) Monocytes # (Manual) POC ABG pH POC ABG pCO2 45.2 H POC ABG pO2 Sodium Potassium Chloride Carbon Dioxide BUN Creatinine Glucose POC Glucose 178 H Uric Acid 12.0 H Calcium Total Bilirubin Alkaline Phosphatase CK-MB (CK-2) CK-MB (CK-2) Rel Index Total Protein Albumin Urine WBC (Auto) 01/22/17 01/23/17 01/23/17 23:33 04:10 04:10 WBC RDW 19.1 H Plt Count Lymph % (Auto) 3.3 L [place] % (Auto) 11.5 H Eos % (Auto) Baso % (Auto) Lymph # 0.3 L [place] # 1.2 H Seg Neutrophils % 83.9 H Seg Neuts % (Manual) Lymphocytes % (Manual) Monocytes % (Manual) Eosinophils % (Manual) Seg Neutrophils # 8.4 H Lymphocytes # (Manual) Monocytes # (Manual) POC ABG pH POC ABG pCO2 POC ABG pO2 Sodium 134 L Potassium Chloride 95.1 L Carbon Dioxide BUN 48 H Creatinine 2.0 H Glucose 197 H POC Glucose 202 H Uric Acid Calcium Total Bilirubin Alkaline Phosphatase CK-MB (CK-2) CK-MB (CK-2) Rel Index Total Protein Albumin Urine WBC (Auto) 01/23/17 01/23/17 01/23/17 05:19 12:16 16:51 WBC RDW Plt Count Lymph % (Auto) [place]bert % (Auto) Eos % (Auto) Baso % (Auto) Lymph # [place] # Seg Neutrophils % Seg Neuts % (Manual) Lymphocytes % (Manual) Monocytes % (Manual) Eosinophils % (Manual) Seg Neutrophils # Lymphocytes # (Manual) Monocytes # (Manual) POC ABG pH 7.317 L POC ABG pCO2 49.6 H POC ABG pO2 Sodium Potassium Chloride Carbon Dioxide BUN Creatinine Glucose POC Glucose 186 H 146 H Uric Acid Calcium Total Bilirubin Alkaline Phosphatase CK-MB (CK-2) CK-MB (CK-2) Rel Index Total Protein Albumin Urine WBC (Auto) 01/23/17 01/23/17 01/24/17 17:24 23:57 05:12 WBC RDW Plt Count Lymph % (Auto) [place]bert % (Auto) Eos % (Auto) Baso % (Auto) Lymph # [place] # Seg Neutrophils % Seg Neuts % (Manual) Lymphocytes % (Manual) Monocytes % (Manual) Eosinophils % (Manual) Seg Neutrophils # Lymphocytes # (Manual) Monocytes # (Manual) POC ABG pH POC ABG pCO2 POC ABG pO2 Sodium Potassium Chloride Carbon Dioxide BUN Creatinine Glucose POC Glucose 176 H 212 H 215 H Uric Acid Calcium Total Bilirubin Alkaline Phosphatase CK-MB (CK-2) CK-MB (CK-2) Rel Index Total Protein Albumin Urine WBC (Auto) 01/24/17 01/24/17 01/24/17 05:44 07:50 12:14 WBC RDW Plt Count Lymph % (Auto) [place] % (Auto) Eos % (Auto) Baso % (Auto) Lymph # [place] # Seg Neutrophils % Seg Neuts % (Manual) Lymphocytes % (Manual) Monocytes % (Manual) Eosinophils % (Manual) Seg Neutrophils # Lymphocytes # (Manual) Monocytes # (Manual) POC ABG pH POC ABG pCO2 POC ABG pO2 Sodium 136 L D Potassium 2.0 L* D Chloride 120.0 H 97.9 L Carbon Dioxide 15 L D BUN 34 H 54 H Creatinine 1.9 H D Glucose 138 H 205 H POC Glucose 210 H Uric Acid Calcium 4.8 L* D Total Bilirubin Alkaline Phosphatase 33 L CK-MB (CK-2) CK-MB (CK-2) Rel Index Total Protein 3.0 L D Albumin 1.4 L Urine WBC (Auto) 01/24/17 01/24/17 01/24/17 16:54 23:35 Unknown WBC RDW 18.6 H Plt Count 138 L Lymph % (Auto) [place]bert % (Auto) Eos % (Auto) Baso % (Auto) Lymph # [place] # Seg Neutrophils % Seg Neuts % (Manual) 71.0 H Lymphocytes % (Manual) 5.0 L Monocytes % (Manual) 18.0 H Eosinophils % (Manual) 5.0 H Seg Neutrophils # Lymphocytes # (Manual) 0.4 L Monocytes # (Manual) 1.3 H POC ABG pH POC ABG pCO2 POC ABG pO2 Sodium Potassium Chloride Carbon Dioxide BUN Creatinine Glucose POC Glucose 227 H 260 H Uric Acid Calcium Total Bilirubin Alkaline Phosphatase CK-MB (CK-2) CK-MB (CK-2) Rel Index Total Protein Albumin Urine WBC (Auto) 01/25/17 01/25/17 01/25/17 05:52 07:54 07:54 WBC RDW 18.9 H Plt Count Lymph % (Auto) [place]bert % (Auto) Eos % (Auto) Baso % (Auto) Lymph # [place] # Seg Neutrophils % Seg Neuts % (Manual) Lymphocytes % (Manual) Monocytes % (Manual) Eosinophils % (Manual) Seg Neutrophils # Lymphocytes # (Manual) Monocytes # (Manual) POC ABG pH POC ABG pCO2 POC ABG pO2 Sodium 135 L Potassium Chloride 97.0 L Carbon Dioxide BUN 55 H Creatinine 1.6 H Glucose 235 H POC Glucose 226 H Uric Acid Calcium Total Bilirubin Alkaline Phosphatase CK-MB (CK-2) CK-MB (CK-2) Rel Index Total Protein Albumin Urine WBC (Auto) 01/25/17 01/25/17 01/25/17 11:38 17:15 23:21 WBC RDW Plt Count Lymph % (Auto) [place] % (Auto) Eos % (Auto) Baso % (Auto) Lymph # [place] # Seg Neutrophils % Seg Neuts % (Manual) Lymphocytes % (Manual) Monocytes % (Manual) Eosinophils % (Manual) Seg Neutrophils # Lymphocytes # (Manual) Monocytes # (Manual) POC ABG pH POC ABG pCO2 POC ABG pO2 Sodium Potassium Chloride Carbon Dioxide BUN Creatinine Glucose POC Glucose 226 H 249 H 245 H Uric Acid Calcium Total Bilirubin Alkaline Phosphatase CK-MB (CK-2) CK-MB (CK-2) Rel Index Total Protein Albumin Urine WBC (Auto) 01/26/17 01/26/17 01/26/17 05:27 12:52 18:16 WBC RDW Plt Count Lymph % (Auto) [place] % (Auto) Eos % (Auto) Baso % (Auto) Lymph # [place] # Seg Neutrophils % Seg Neuts % (Manual) Lymphocytes % (Manual) Monocytes % (Manual) Eosinophils % (Manual) Seg Neutrophils # Lymphocytes # (Manual) Monocytes # (Manual) POC ABG pH POC ABG pCO2 POC ABG pO2 Sodium Potassium Chloride Carbon Dioxide BUN Creatinine Glucose POC Glucose 244 H 231 H 231 H Uric Acid Calcium Total Bilirubin Alkaline Phosphatase CK-MB (CK-2) CK-MB (CK-2) Rel Index Total Protein Albumin Urine WBC (Auto) 01/26/17 01/26/17 01/27/17 18:18 23:33 04:45 WBC RDW 18.6 H Plt Count Lymph % (Auto) 4.6 L [place] % (Auto) 13.6 H Eos % (Auto) 4.4 H Baso % (Auto) Lymph # 0.4 L [place] # 1.1 H Seg Neutrophils % 76.5 H Seg Neuts % (Manual) Lymphocytes % (Manual) Monocytes % (Manual) Eosinophils % (Manual) Seg Neutrophils # Lymphocytes # (Manual) Monocytes # (Manual) POC ABG pH POC ABG pCO2 POC ABG pO2 Sodium Potassium Chloride Carbon Dioxide BUN Creatinine Glucose POC Glucose 191 H 202 H Uric Acid Calcium Total Bilirubin Alkaline Phosphatase CK-MB (CK-2) CK-MB (CK-2) Rel Index Total Protein Albumin Urine WBC (Auto) 01/27/17 01/27/17 01/27/17 04:45 05:36 12:24 WBC RDW Plt Count Lymph % (Auto) [place] % (Auto) Eos % (Auto) Baso % (Auto) Lymph # [place] # Seg Neutrophils % Seg Neuts % (Manual) Lymphocytes % (Manual) Monocytes % (Manual) Eosinophils % (Manual) Seg Neutrophils # Lymphocytes # (Manual) Monocytes # (Manual) POC ABG pH POC ABG pCO2 POC ABG pO2 Sodium Potassium Chloride Carbon Dioxide BUN 54 H Creatinine Glucose 202 H POC Glucose 202 H 219 H Uric Acid Calcium Total Bilirubin Alkaline Phosphatase CK-MB (CK-2) CK-MB (CK-2) Rel Index Total Protein Albumin Urine WBC (Auto) 01/27/17 01/27/17 01/28/17 17:44 23:38 04:00 WBC RDW Plt Count Lymph % (Auto) [place] % (Auto) Eos % (Auto) Baso % (Auto) Lymph # [place] # Seg Neutrophils % Seg Neuts % (Manual) Lymphocytes % (Manual) Monocytes % (Manual) Eosinophils % (Manual) Seg Neutrophils # Lymphocytes # (Manual) Monocytes # (Manual) POC ABG pH POC ABG pCO2 POC ABG pO2 Sodium Potassium Chloride Carbon Dioxide BUN Creatinine Glucose POC Glucose 237 H 253 H 236 H Uric Acid Calcium Total Bilirubin Alkaline Phosphatase CK-MB (CK-2) CK-MB (CK-2) Rel Index Total Protein Albumin Urine WBC (Auto) 01/28/17 01/28/17 01/28/17 05:00 05:00 12:02 WBC RDW 18.6 H Plt Count Lymph % (Auto) 4.8 L [place] % (Auto) 13.0 H Eos % (Auto) 4.8 H Baso % (Auto) Lymph # 0.4 L [place] # 1.2 H Seg Neutrophils % 76.3 H Seg Neuts % (Manual) Lymphocytes % (Manual) Monocytes % (Manual) Eosinophils % (Manual) Seg Neutrophils # Lymphocytes # (Manual) Monocytes # (Manual) POC ABG pH POC ABG pCO2 POC ABG pO2 Sodium 136 L Potassium Chloride Carbon Dioxide BUN 56 H Creatinine 1.4 H Glucose 225 H POC Glucose 195 H Uric Acid Calcium Total Bilirubin Alkaline Phosphatase CK-MB (CK-2) CK-MB (CK-2) Rel Index Total Protein Albumin Urine WBC (Auto) 01/28/17 01/28/17 01/29/17 17:57 23:50 04:57 WBC RDW Plt Count Lymph % (Auto) [place] % (Auto) Eos % (Auto) Baso % (Auto) Lymph # [place] # Seg Neutrophils % Seg Neuts % (Manual) Lymphocytes % (Manual) Monocytes % (Manual) Eosinophils % (Manual) Seg Neutrophils # Lymphocytes # (Manual) Monocytes # (Manual) POC ABG pH POC ABG pCO2 POC ABG pO2 Sodium Potassium Chloride Carbon Dioxide BUN Creatinine Glucose POC Glucose 193 H 181 H 199 H Uric Acid Calcium Total Bilirubin Alkaline Phosphatase CK-MB (CK-2) CK-MB (CK-2) Rel Index Total Protein Albumin Urine WBC (Auto) 01/29/17 01/29/17 01/29/17 05:30 05:30 11:20 WBC RDW 18.6 H Plt Count Lymph % (Auto) 4.3 L [place] % (Auto) 11.9 H Eos % (Auto) 5.0 H Baso % (Auto) Lymph # 0.3 L [place] # 1.0 H Seg Neutrophils % 78.1 H Seg Neuts % (Manual) Lymphocytes % (Manual) Monocytes % (Manual) Eosinophils % (Manual) Seg Neutrophils # Lymphocytes # (Manual) Monocytes # (Manual) POC ABG pH POC ABG pCO2 POC ABG pO2 Sodium Potassium Chloride 97.9 L Carbon Dioxide BUN 59 H Creatinine 1.6 H Glucose 220 H POC Glucose 215 H Uric Acid Calcium Total Bilirubin Alkaline Phosphatase CK-MB (CK-2) CK-MB (CK-2) Rel Index Total Protein Albumin Urine WBC (Auto) 01/29/17 01/30/17 01/30/17 17:37 04:00 04:00 WBC RDW 18.7 H Plt Count Lymph % (Auto) 6.6 L [place] % (Auto) 12.2 H Eos % (Auto) 4.4 H Baso % (Auto) Lymph # 0.6 L [place] # 1.1 H Seg Neutrophils % 76.3 H Seg Neuts % (Manual) Lymphocytes % (Manual) Monocytes % (Manual) Eosinophils % (Manual) Seg Neutrophils # Lymphocytes # (Manual) Monocytes # (Manual) POC ABG pH POC ABG pCO2 POC ABG pO2 Sodium 136 L Potassium Chloride 96.8 L Carbon Dioxide BUN 58 H Creatinine 1.9 H Glucose 121 H POC Glucose 147 H Uric Acid Calcium Total Bilirubin Alkaline Phosphatase CK-MB (CK-2) CK-MB (CK-2) Rel Index Total Protein Albumin Urine WBC (Auto) 01/30/17 01/30/17 01/30/17 05:30 12:08 15:54 WBC RDW Plt Count Lymph % (Auto) [place] % (Auto) Eos % (Auto) Baso % (Auto) Lymph # [place] # Seg Neutrophils % Seg Neuts % (Manual) Lymphocytes % (Manual) Monocytes % (Manual) Eosinophils % (Manual) Seg Neutrophils # Lymphocytes # (Manual) Monocytes # (Manual) POC ABG pH POC ABG pCO2 46.4 H POC ABG pO2 Sodium Potassium Chloride Carbon Dioxide BUN Creatinine Glucose POC Glucose 136 H 175 H Uric Acid Calcium Total Bilirubin Alkaline Phosphatase CK-MB (CK-2) CK-MB (CK-2) Rel Index Total Protein Albumin Urine WBC (Auto) 01/30/17 01/30/17 01/31/17 17:48 23:57 04:30 WBC RDW 18.7 H Plt Count Lymph % (Auto) 5.6 L [place] % (Auto) 9.4 H Eos % (Auto) 4.6 H Baso % (Auto) Lymph # 0.5 L [place] # 0.9 H Seg Neutrophils % 79.8 H Seg Neuts % (Manual) Lymphocytes % (Manual) Monocytes % (Manual) Eosinophils % (Manual) Seg Neutrophils # 7.8 H Lymphocytes # (Manual) Monocytes # (Manual) POC ABG pH POC ABG pCO2 POC ABG pO2 Sodium Potassium Chloride Carbon Dioxide BUN Creatinine Glucose POC Glucose 201 H 198 H Uric Acid Calcium Total Bilirubin Alkaline Phosphatase CK-MB (CK-2) CK-MB (CK-2) Rel Index Total Protein Albumin Urine WBC (Auto) 01/31/17 01/31/17 04:30 06:15 WBC RDW Plt Count Lymph % (Auto) [place] % (Auto) Eos % (Auto) Baso % (Auto) Lymph # [place] # Seg Neutrophils % Seg Neuts % (Manual) Lymphocytes % (Manual) Monocytes % (Manual) Eosinophils % (Manual) Seg Neutrophils # Lymphocytes # (Manual) Monocytes # (Manual) POC ABG pH POC ABG pCO2 POC ABG pO2 Sodium 132 L Potassium Chloride 93.2 L Carbon Dioxide BUN 61 H Creatinine 1.9 H Glucose 300 H POC Glucose 167 H Uric Acid Calcium Total Bilirubin Alkaline Phosphatase CK-MB (CK-2) CK-MB (CK-2) Rel Index Total Protein Albumin Urine WBC (Auto)
[2017-01-31] MEDS: BABY ASPIRIN PO SCH (11:26)
[2017-01-31] MEDS: LEVEMIR SUB-Q SCH (11:26)
[2017-01-31] MEDS: PEPCID PO SCH ×2 (11:26→21:46)
[2017-01-31] MEDS: DIFLUCAN/NS 100 MG/50 ML 100 MG/50 ML BAG IV SCH (11:27)
--- NOTE | 2017-01-31 12:15 | Progress Note ---
Assessment and Plan Assessment and plan: S/p PEA cardiorespiratory arrest 01/19. s/p IV amio 150mg bolus x 1. Cardiology following. Cardiac isoenzymes negative for AMI s/p code; ECG with no ischemic changes. Patient previously on Dobutamine gtt which has now been discontinued. 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 Continue per cardiology. Cont strict I/O. The diuretics held in setting of CIERRA. ACEI/ARB held in setting of CIERRA. Aspiration PNA. Treated. Patient off antibiotics. Sepsis. Etiology secondary to pneumonia and UTI. Urine culture revealed enterococcus. Acute hypoxic respiratory failure. Etiology secondary to above. Patient currently on high flow O2. Continue BiPAP as clinically indicated. Pulmonary following. Acute renal failure. Renal function appears to be stable at present. Etiology secondary to CIERRA and vasomotor nephropathy. Nephrology following. Avoid nephrotoxic agents. Maintain MAP greater than 65. Hyponatremia. Follow-up BMP Accelerated junction arrhythmia / 1st degree AV block. Cardiology following. Cardiology started amiodarone drip. Beta blockers discontinued. Cardiomyopathy. 01/15/2017 2D echocardiogram reported as global left ventricular systolic function is severely decreased, estimated EF is 10-15%, left atrium mildly dilated, right ventricle is mild to moderately dilated, right ventricular global systolic function is moderately reduced, right atrium is mild to moderate dilated, trace AR, no , mitral annular calcification, mild MR, no ms, moderate TR, right ventricular systolic function is calculated at 48mmhg, there is small pericardial effusion which does not appear to be hemodynamically significant NSVT. Continue medications as above per cardiology. Acute toxic metabolic encephalopathy. Resolved. Enterococcus UTI. As above. Diabetes type II, uncontrolled. Continue sliding scale and Accu-Cheks. Hyperlipidemia History of Breast CA Obesity Disposition. Transfer to LTAC when bed available. History Interval history: No new issues overnight. Patient did not tolerate hospital oxygen this morning. Patient had to be placed back on BiPAP. Patient is somewhat somnolent this morning. Hospitalist Physical - Constitutional Vitals: Temp Pulse Resp BP Pulse Ox 97.4 F L 79 25 H 156/99 85 01/31/17 11:14 01/31/17 11:00 01/31/17 11:00 01/31/17 11:00 01/31/17 11:00 General appearance: Present: well-nourished, obese, other (family present) - EENT Eyes: Present: PERRL, EOM intact ENT: hearing intact, clear oral mucosa, dentition normal - Neck Neck: Present: supple, normal ROM - Respiratory Respiratory effort: normal Respiratory: bilateral: diminished, rales, rhonchi - Cardiovascular Rhythm: regular Heart Sounds: Present: S1 & S2. Absent: gallop, rub - Extremities Extremities: no ischemia, No edema, Full ROM - Abdominal General gastrointestinal: soft, non-tender, non-distended, normal bowel sounds - Integumentary Integumentary: Present: clear, warm, dry - Neurologic Neurologic: CNII-XII intact, moves all extremities Results - Labs CBC & Chem 7: 01/31/17 04:30 01/31/17 04:30 Labs: Laboratory Last Values WBC 9.8 K/mm3 (4.5-11.0) 01/31/17 04:30 RBC 4.62 M/mm3 (3.65-5.03) 01/31/17 04:30 Hgb 13.1 gm/dl (10.1-14.3) 01/31/17 04:30 Hct 40.6 % (30.3-42.9) 01/31/17 04:30 MCV 88 fl (79-97) 01/31/17 04:30 MCH 28 pg (28-32) 01/31/17 04:30 MCHC 32 % (30-34) 01/31/17 04:30 RDW 18.7 % (13.2-15.2) H 01/31/17 04:30 Plt Count 202 K/mm3 (140-440) 01/31/17 04:30 Lymph % (Auto) 5.6 % (13.4-35.0) L 01/31/17 04:30 [place] % (Auto) 9.4 % (0.0-7.3) H 01/31/17 04:30 Eos % (Auto) 4.6 % (0.0-4.3) H 01/31/17 04:30 Baso % (Auto) 0.6 % (0.0-1.8) 01/31/17 04:30 Lymph # 0.5 K/mm3 (1.2-5.4) L 01/31/17 04:30 [place] # 0.9 K/mm3 (0.0-0.8) H 01/31/17 04:30 Eos # 0.4 K/mm3 (0.0-0.4) 01/31/17 04:30 Baso # 0.1 K/mm3 (0.0-0.1) 01/31/17 04:30 Add Manual Diff Complete 01/24/17 Unknown Total Counted 100 01/24/17 Unknown Seg Neutrophils % 79.8 % (40.0-70.0) H 01/31/17 04:30 Seg Neuts % (Manual) 71.0 % (40.0-70.0) H 01/24/17 Unknown Band Neutrophils % 0 % 01/24/17 Unknown Lymphocytes % (Manual) 5.0 % (13.4-35.0) L 01/24/17 Unknown Reactive Lymphs % (Man) 0 % 01/24/17 Unknown Monocytes % (Manual) 18.0 % (0.0-7.3) H 01/24/17 Unknown Eosinophils % (Manual) 5.0 % (0.0-4.3) H 01/24/17 Unknown Basophils % (Manual) 1.0 % (0.0-1.8) 01/24/17 Unknown Metamyelocytes % 0 % 01/24/17 Unknown Myelocytes % 0 % 01/24/17 Unknown Promyelocytes % 0 % 01/24/17 Unknown Blast Cells % 0 % 01/24/17 Unknown Nucleated RBC % Not Reportable 01/24/17 Unknown Seg Neutrophils # 7.8 K/mm3 (1.8-7.7) H 01/31/17 04:30 Seg Neutrophils # Man 5.1 K/mm3 (1.8-7.7) 01/24/17 Unknown Band Neutrophils # 0.0 K/mm3 01/24/17 Unknown Lymphocytes # (Manual) 0.4 K/mm3 (1.2-5.4) L 01/24/17 Unknown Abs React Lymphs (Man) 0.0 K/mm3 01/24/17 Unknown Monocytes # (Manual) 1.3 K/mm3 (0.0-0.8) H 01/24/17 Unknown Eosinophils # (Manual) 0.4 K/mm3 (0.0-0.4) 01/24/17 Unknown Basophils # (Manual) 0.1 K/mm3 (0.0-0.1) 01/24/17 Unknown Metamyelocytes # 0.0 K/mm3 01/24/17 Unknown Myelocytes # 0.0 K/mm3 01/24/17 Unknown Promyelocytes # 0.0 K/mm3 01/24/17 Unknown Blast Cells # 0.0 K/mm3 01/24/17 Unknown WBC Morphology Not Reportable 01/24/17 Unknown Hypersegmented Neuts Not Reportable 01/24/17 Unknown Hyposegmented Neuts Not Reportable 01/24/17 Unknown Hypogranular Neuts Not Reportable 01/24/17 Unknown Smudge Cells Not Reportable 01/24/17 Unknown Toxic Granulation Not Reportable 01/24/17 Unknown Toxic Vacuolation Not Reportable 01/24/17 Unknown Dohle Bodies Not Reportable 01/24/17 Unknown Pelger-Huet Anomaly Not Reportable 01/24/17 Unknown Yusuf Rods Not Reportable 01/24/17 Unknown Platelet Estimate Consistent w auto 01/24/17 Unknown Clumped Platelets Not Reportable 01/24/17 Unknown Plt Clumps, EDTA Not Reportable 01/24/17 Unknown Large Platelets Not Reportable 01/24/17 Unknown Giant Platelets Not Reportable 01/24/17 Unknown Platelet Satelliting Not Reportable 01/24/17 Unknown Plt Morphology Comment Not Reportable 01/24/17 Unknown RBC Morphology Normal 01/24/17 Unknown Dimorphic RBCs Not Reportable 01/24/17 Unknown Polychromasia Not Reportable 01/24/17 Unknown Hypochromasia Not Reportable 01/24/17 Unknown Poikilocytosis Not Reportable 01/24/17 Unknown Anisocytosis Not Reportable 01/24/17 Unknown Microcytosis Not Reportable 01/24/17 Unknown Macrocytosis Not Reportable 01/24/17 Unknown Spherocytes Not Reportable 01/24/17 Unknown Pappenheimer Bodies Not Reportable 01/24/17 Unknown Sickle Cells Not Reportable 01/24/17 Unknown Target Cells Not Reportable 01/24/17 Unknown Tear Drop Cells Not Reportable 01/24/17 Unknown Ovalocytes Not Reportable 01/24/17 Unknown Helmet Cells Not Reportable 01/24/17 Unknown [place] Bodies Not Reportable 01/24/17 Unknown [place] Rings Not Reportable 01/24/17 Unknown Wally Cells Not Reportable 01/24/17 Unknown Bite Cells Not Reportable 01/24/17 Unknown Crenated Cell Not Reportable 01/24/17 Unknown Elliptocytes Not Reportable 01/24/17 Unknown Acanthocytes (Spur) Not Reportable 01/24/17 Unknown Rouleaux Not Reportable 01/24/17 Unknown Hemoglobin C Crystals Not Reportable 01/24/17 Unknown Schistocytes Not Reportable 01/24/17 Unknown Malaria parasites Not Reportable 01/24/17 Unknown Trevor Bodies Not Reportable 01/24/17 Unknown Hem Pathologist Commnt No 01/24/17 Unknown POC ABG pH 7.355 (7.35-7.45) 01/30/17 15:54 POC ABG pCO2 46.4 (35-45) H 01/30/17 15:54 POC ABG pO2 84 (80-105) 01/30/17 15:54 POC ABG HCO3 25.9 01/30/17 15:54 POC ABG Total CO2 27 01/30/17 15:54 POC ABG O2 Sat 96 01/30/17 15:54 POC ABG Base Excess 0 01/30/17 15:54 FiO2 40 % 01/30/17 15:54 Sodium 132 mmol/L (137-145) L 01/31/17 04:30 Potassium 4.4 mmol/L (3.6-5.0) 01/31/17 04:30 Chloride 93.2 mmol/L (98-107) L 01/31/17 04:30 Carbon Dioxide 26 mmol/L (22-30) 01/31/17 04:30 Anion Gap 17 mmol/L 01/31/17 04:30 BUN 61 mg/dL (7-17) H 01/31/17 04:30 Creatinine 1.9 mg/dL (0.7-1.2) H 01/31/17 04:30 Estimated GFR 31 ml/min 01/31/17 04:30 BUN/Creatinine Ratio 32.10 % 01/31/17 04:30 Glucose 300 mg/dL (65-100) H 01/31/17 04:30 POC Glucose 118 (70-105) H 01/31/17 11:21 Osmolality 298 Mosm/kg 01/22/17 13:00 Uric Acid 12.0 mg/dL (3.5-7.6) H 01/22/17 13:00 Calcium 9.2 mg/dL (8.4-10.2) 01/31/17 04:30 Magnesium 2.00 mg/dL (1.7-2.3) 01/29/17 05:30 Total Bilirubin 1.60 mg/dL (0.1-1.2) H 01/22/17 04:00 AST 25 units/L (5-40) 01/22/17 04:00 ALT 12 units/L (7-56) 01/22/17 04:00 Alkaline Phosphatase 63 units/L (35-129) 01/22/17 04:00 Total Creatine Kinase 98 units/L (30-135) 01/19/17 13:02 CK-MB (CK-2) 4.1 ng/mL (0.0-4.0) H 01/19/17 13:02 CK-MB (CK-2) Rel Index 4.1 (0-4) H 01/19/17 13:02 Troponin T 0.022 ng/mL (0.00-0.029) 01/19/17 13:02 NT-Pro-B Natriuret Pep 8400 pg/mL (0-900) H 01/15/17 09:03 Total Protein 5.6 g/dL (6.3-8.2) L 01/22/17 04:00 Albumin 2.8 g/dL (3.9-5) L 01/22/17 04:00 Albumin/Globulin Ratio 1.0 % 01/22/17 04:00 Urine Color Yellow (Yellow) 01/20/17 09:34 Urine Turbidity Clear (Clear) 01/20/17 09:34 Urine pH 5.0 (5.0-7.0) 01/20/17 09:34 Ur Specific [place] 1.006 (1.003-1.030) 01/20/17 09:34 Urine Protein <15 mg/dl mg/dL (Negative) 01/20/17 09:34 Urine Glucose (UA) Neg mg/dL (Negative) 01/20/17 09:34 Urine Ketones Neg mg/dL (Negative) 01/20/17 09:34 Urine Blood Mod (Negative) 01/20/17 09:34 Urine Nitrite Neg (Negative) 01/20/17 09:34 Urine Bilirubin Neg (Negative) 01/20/17 09:34 Urine Urobilinogen < 2.0 mg/dL (<2.0) 01/20/17 09:34 Ur Leukocyte Esterase Mod (Negative) 01/20/17 09:34 Urine WBC (Auto) 15.0 /HPF (0.0-6.0) H 01/20/17 09:34 Urine RBC (Auto) 12.0 /HPF (0.0-6.0) 01/20/17 09:34 U Epithel Cells (Auto) 2.0 /HPF (0-13.0) 01/20/17 09:34 Urine Bacteria (Auto) 1+ /HPF (Negative) 01/20/17 09:34 Amorphous Crystals Few 01/20/17 09:34 Urine Yeast (Budding) 1+ /HPF 01/20/17 09:34 Vancomycin Trough 16.5 ug/mL (5.0-20.0) 01/22/17 13:00
[2017-01-31] MEDS: LOPRESSOR PO SCH (13:42)
[2017-01-31] MEDS: DILAUDID IV PRN (17:24)
[2017-01-31] MEDS ORDERED: BUMEX PO SCH (18:00)
[2017-01-31] MEDS: ZOCOR PO SCH (21:46)
[2017-02-01] MEDS: NOVOLOG SUB-Q SCH ×4 (01:01→18:41)
[2017-02-01] MEDS: LOPRESSOR PO SCH ×3 (01:02→22:53)
[2017-02-01] MEDS: HEPARIN SUB-Q SCH ×3 (06:15→22:53)
[2017-02-01] MEDS: PERCOCET 5/325 PO PRN (06:46)
--- NOTE | 2017-02-01 08:58 | Progress Note ---
Assessment and Plan S/p PEA cardiorespiratory arrest 01/19 Extubated Ade negative for AMI s/p code; ECG with no ischemic changes Dobutamine gtt d/c'd s/p IV amio 150mg bolus x 1. Acute on chronic biventricular systolic heart failure Cont strict I/O cont bumex. cont lopressor. ACEI/ARB held in setting of CIERRA. Aspiration PNA per ID. CIERRA / Hyperkalemia nephrology following Hyponatremia monitor Accelerated junction arrhythmia / 1st degree AV block Per EP, QRS vector same as office EKG unlikely VT Also with intermittent SR with prolonged CT v. IVCD v. idioventricular rhythm noted on tele. continue lopressor. Cardiomyopathy EF 10 - 15% NSVT Diabetes Hypertension Hyperlipidemia History of Breast CA Obesity Cont present cardiac regimen. Pt awaiting LTAC placement. The patient has been seen in conjunction with Dr. Galaviz who agrees with the assessment and plan of care. Subjective Date of service: 02/01/17 Principal diagnosis: CHF exacerbation Interval history: Pt resting in bed, on O2 via [employer] [place]. Remains apparent 1st degree AV block with IVCD on tele, HR WNL. Objective Last Vital Signs Temp 95.9 F L 02/01/17 04:00 Pulse 65 02/01/17 08:00 Resp 23 02/01/17 08:00 BP 121/66 02/01/17 08:00 Pulse Ox 98 02/01/17 08:30 - Physical Examination General: Appears Well, No Apparent Distress HEENT: Positive: PERRL, EOMI, Normocephaly Neck: Positive: neck supple, trachea midline Cardiac: Positive: Regular Rate, S1/S2 Lungs: Positive: Decreased Breath Sounds, Oxygen Neuro: Positive: Grossly Intact Abdomen: Positive: Unremarkable, Soft, Active Bowel Sounds Skin: Negative: Rash, Suspicious Lesions Musculoskeletal: No Fluid Collection, No Pain Extremities: Present: warm, Other (chronic venous stasis changes). Absent: edema - Imaging and Cardiology EKG: report reviewed (Tachycardia of 128/min Junctional rhythm), image reviewed Stress echo: report reviewed (Cardiac PET 11/11: very small mild anterior, anteroapical mild reversible defect. EF stress 58%) Echo: report reviewed (ECHO 11/16: TDS, EF cannot be determined due to poor image quality, ) Cardiac cath: report reviewed ([facility] 06/07: LM: patent, LCX: diffuse disease, LAD: diffuse disease, RCA: diffuse disease, mid 40%)
[2017-02-01] MEDS: DIFLUCAN/NS 100 MG/50 ML 100 MG/50 ML BAG IV SCH (10:06)
[2017-02-01] MEDS: BABY ASPIRIN PO SCH (10:06)
[2017-02-01] MEDS: LEVEMIR SUB-Q SCH (10:06)
[2017-02-01] MEDS: BUMEX PO SCH (10:07)
[2017-02-01] MEDS: PEPCID PO SCH ×2 (10:07→22:53)
--- NOTE | 2017-02-01 10:53 | Progress Note ---
Assessment and Plan 71 y/o female with acute respiratory failure, acute renal failure and dilated cardiomyopathy 1. Net negative state if possible 2. Follow up renal recs, changed bumex to daily 3. continue bipap therapy for now, may attempt HFNC tomorrow, did not tolerate so back on bipap now 4. Ok with transfer to LTACH when bed available CCT 31 minutes. Subjective Date of service: 02/01/17 Principal diagnosis: CHF exacerbation Interval history: No acute events. Still requiring bipap intermittenly. LTACH pending. Objective Vital Signs - 12hr 01/31/17 01/31/17 02/01/17 23:00 23:30 00:00 Temperature 96.0 F L Pulse Rate 72 70 63 Pulse Rate [ 65 From Monitor] Respiratory 27 H 21 20 Rate Blood Pressure 128/80 126/78 126/78 O2 Sat by Pulse 96 99 98 Oximetry 02/01/17 02/01/17 02/01/17 01:00 01:02 02:00 Temperature Pulse Rate 69 60 66 Pulse Rate [ From Monitor] Respiratory 22 17 Rate Blood Pressure 132/82 99/60 126/72 O2 Sat by Pulse 96 97 Oximetry 02/01/17 02/01/17 02/01/17 03:00 03:51 04:00 Temperature 95.9 F L Pulse Rate 64 82 63 Pulse Rate [ From Monitor] Respiratory 17 18 16 Rate Blood Pressure 110/66 117/67 112/64 O2 Sat by Pulse 100 98 100 Oximetry 02/01/17 02/01/17 02/01/17 05:00 06:00 07:00 Temperature Pulse Rate 71 67 69 Pulse Rate [ From Monitor] Respiratory 20 17 20 Rate Blood Pressure 130/99 133/71 121/74 O2 Sat by Pulse 98 98 71 L Oximetry 02/01/17 02/01/17 02/01/17 08:00 08:30 09:00 Temperature 97.0 F L Pulse Rate 65 114 H Pulse Rate [ 65 From Monitor] Respiratory 23 28 H Rate Blood Pressure 121/66 143/97 O2 Sat by Pulse 99 98 94 Oximetry 02/01/17 02/01/17 02/01/17 10:00 10:06 10:23 Temperature Pulse Rate 72 72 74 Pulse Rate [ From Monitor] Respiratory 24 23 Rate Blood Pressure 145/90 143/95 145/90 O2 Sat by Pulse 95 95 Oximetry Constitutional: no acute distress, alert Eyes: non-icteric ENT: other (on BiPAP) Neck: supple, no JVD Effort: normal Ascultation: Bilateral: clear, diminished breath sounds (bases), rhonchi ( bilateral), other (coarse, equal BS bilaterally) Cardiovascular: irregular rhythm Gastrointestinal: normoactive bowel sounds, soft, other (obese) Integumentary: normal Extremities: no cyanosis, no edema, pink and warm, other (SCDs are in place) Neurologic: normal mental status, non-focal exam, pupils equal and round Psychiatric: mood appropriate, affect normal CBC and BMP: 01/31/17 04:30 01/31/17 04:30 ABG, PT/INR, D-dimer: ABG POC ABG pH 7.355 (7.35-7.45) 01/30/17 15:54 POC ABG pCO2 46.4 (35-45) H 01/30/17 15:54 POC ABG pO2 84 (80-105) 01/30/17 15:54 POC ABG HCO3 25.9 01/30/17 15:54 POC ABG Total CO2 27 01/30/17 15:54 POC ABG O2 Sat 96 01/30/17 15:54 Abnormal lab findings: Abnormal Labs 01/15/17 01/15/17 01/15/17 17:45 22:06 23:40 WBC RDW 18.6 H Plt Count 114 L Lymph % (Auto) [place] % (Auto) Eos % (Auto) Baso % (Auto) Lymph # [place] # Seg Neutrophils % Seg Neuts % (Manual) 82.0 H Lymphocytes % (Manual) 7.0 L Monocytes % (Manual) Eosinophils % (Manual) Seg Neutrophils # Lymphocytes # (Manual) 0.4 L Monocytes # (Manual) POC ABG pH POC ABG pCO2 POC ABG pO2 Sodium Potassium Chloride Carbon Dioxide BUN Creatinine Glucose POC Glucose 147 H 135 H Uric Acid Calcium Total Bilirubin Alkaline Phosphatase CK-MB (CK-2) CK-MB (CK-2) Rel Index Total Protein Albumin Urine WBC (Auto) 01/15/17 01/16/17 01/16/17 23:40 03:44 08:49 WBC RDW Plt Count Lymph % (Auto) [place] % (Auto) Eos % (Auto) Baso % (Auto) Lymph # [place] # Seg Neutrophils % Seg Neuts % (Manual) Lymphocytes % (Manual) Monocytes % (Manual) Eosinophils % (Manual) Seg Neutrophils # Lymphocytes # (Manual) Monocytes # (Manual) POC ABG pH POC ABG pCO2 POC ABG pO2 Sodium 132 L Potassium 5.1 H Chloride 95.5 L Carbon Dioxide 20 L BUN 36 H Creatinine Glucose 128 H POC Glucose 117 H 126 H Uric Acid Calcium Total Bilirubin Alkaline Phosphatase CK-MB (CK-2) CK-MB (CK-2) Rel Index Total Protein Albumin Urine WBC (Auto) 01/16/17 01/16/17 01/16/17 08:56 08:56 12:06 WBC RDW 19.2 H Plt Count Lymph % (Auto) 6.6 L [place] % (Auto) 12.0 H Eos % (Auto) 5.8 H Baso % (Auto) 1.9 H Lymph # 0.3 L [place] # Seg Neutrophils % 73.7 H Seg Neuts % (Manual) Lymphocytes % (Manual) Monocytes % (Manual) Eosinophils % (Manual) Seg Neutrophils # Lymphocytes # (Manual) Monocytes # (Manual) POC ABG pH POC ABG pCO2 POC ABG pO2 Sodium 132 L Potassium Chloride 95.1 L Carbon Dioxide 19 L BUN 36 H Creatinine 1.3 H Glucose 129 H POC Glucose 172 H Uric Acid Calcium Total Bilirubin 1.40 H Alkaline Phosphatase CK-MB (CK-2) CK-MB (CK-2) Rel Index Total Protein 6.2 L Albumin 3.1 L Urine WBC (Auto) 01/16/17 01/17/17 01/17/17 22:34 05:29 05:29 WBC RDW 19.2 H Plt Count Lymph % (Auto) 5.9 L [place] % (Auto) 10.8 H Eos % (Auto) Baso % (Auto) Lymph # 0.4 L [place] # Seg Neutrophils % 80.1 H Seg Neuts % (Manual) Lymphocytes % (Manual) Monocytes % (Manual) Eosinophils % (Manual) Seg Neutrophils # Lymphocytes # (Manual) Monocytes # (Manual) POC ABG pH POC ABG pCO2 POC ABG pO2 Sodium 131 L Potassium 5.3 H Chloride 94.8 L Carbon Dioxide 21 L BUN 39 H Creatinine 1.4 H Glucose 196 H POC Glucose 210 H Uric Acid Calcium Total Bilirubin Alkaline Phosphatase CK-MB (CK-2) CK-MB (CK-2) Rel Index Total Protein Albumin Urine WBC (Auto) 01/17/17 01/17/17 01/17/17 07:39 17:39 22:45 WBC RDW Plt Count Lymph % (Auto) [place] % (Auto) Eos % (Auto) Baso % (Auto) Lymph # [place] # Seg Neutrophils % Seg Neuts % (Manual) Lymphocytes % (Manual) Monocytes % (Manual) Eosinophils % (Manual) Seg Neutrophils # Lymphocytes # (Manual) Monocytes # (Manual) POC ABG pH POC ABG pCO2 POC ABG pO2 Sodium Potassium Chloride Carbon Dioxide BUN Creatinine Glucose POC Glucose 198 H 208 H 223 H Uric Acid Calcium Total Bilirubin Alkaline Phosphatase CK-MB (CK-2) CK-MB (CK-2) Rel Index Total Protein Albumin Urine WBC (Auto) 01/18/17 01/18/17 01/18/17 05:07 08:32 12:24 WBC RDW Plt Count Lymph % (Auto) [place] % (Auto) Eos % (Auto) Baso % (Auto) Lymph # [place] # Seg Neutrophils % Seg Neuts % (Manual) Lymphocytes % (Manual) Monocytes % (Manual) Eosinophils % (Manual) Seg Neutrophils # Lymphocytes # (Manual) Monocytes # (Manual) POC ABG pH POC ABG pCO2 POC ABG pO2 Sodium 129 L Potassium 5.2 H Chloride 92.0 L Carbon Dioxide BUN 41 H Creatinine 1.5 H Glucose 228 H POC Glucose 236 H 230 H Uric Acid Calcium Total Bilirubin Alkaline Phosphatase CK-MB (CK-2) CK-MB (CK-2) Rel Index Total Protein Albumin Urine WBC (Auto) 01/18/17 01/19/17 01/19/17 16:00 03:46 03:46 WBC RDW 18.9 H Plt Count Lymph % (Auto) [place] % (Auto) Eos % (Auto) Baso % (Auto) Lymph # [place] # Seg Neutrophils % Seg Neuts % (Manual) Lymphocytes % (Manual) Monocytes % (Manual) Eosinophils % (Manual) Seg Neutrophils # Lymphocytes # (Manual) Monocytes # (Manual) POC ABG pH POC ABG pCO2 POC ABG pO2 Sodium 128 L Potassium Chloride 92.3 L Carbon Dioxide 21 L BUN 40 H Creatinine 1.4 H Glucose 178 H POC Glucose 253 H Uric Acid Calcium Total Bilirubin Alkaline Phosphatase CK-MB (CK-2) CK-MB (CK-2) Rel Index Total Protein Albumin Urine WBC (Auto) 01/19/17 01/19/17 01/19/17 09:21 11:45 13:02 WBC RDW Plt Count Lymph % (Auto) [place] % (Auto) Eos % (Auto) Baso % (Auto) Lymph # [place] # Seg Neutrophils % Seg Neuts % (Manual) Lymphocytes % (Manual) Monocytes % (Manual) Eosinophils % (Manual) Seg Neutrophils # Lymphocytes # (Manual) Monocytes # (Manual) POC ABG pH POC ABG pCO2 POC ABG pO2 Sodium 131 L Potassium Chloride 92.8 L Carbon Dioxide BUN 39 H Creatinine 1.4 H Glucose 159 H POC Glucose 135 H 125 H Uric Acid Calcium Total Bilirubin Alkaline Phosphatase CK-MB (CK-2) 4.1 H CK-MB (CK-2) Rel Index 4.1 H Total Protein Albumin Urine WBC (Auto) 01/19/17 01/20/17 01/20/17 15:48 04:00 05:45 WBC 11.5 H RDW 18.9 H Plt Count 131 L Lymph % (Auto) [place] % (Auto) Eos % (Auto) Baso % (Auto) Lymph # [place] # Seg Neutrophils % Seg Neuts % (Manual) Lymphocytes % (Manual) Monocytes % (Manual) Eosinophils % (Manual) Seg Neutrophils # Lymphocytes # (Manual) Monocytes # (Manual) POC ABG pH POC ABG pCO2 POC ABG pO2 189 H Sodium 129 L Potassium Chloride 91.4 L Carbon Dioxide BUN 37 H Creatinine 1.3 H Glucose POC Glucose Uric Acid Calcium Total Bilirubin Alkaline Phosphatase CK-MB (CK-2) CK-MB (CK-2) Rel Index Total Protein Albumin Urine WBC (Auto) 01/20/17 01/20/17 01/21/17 06:09 09:34 00:26 WBC RDW Plt Count Lymph % (Auto) [place] % (Auto) Eos % (Auto) Baso % (Auto) Lymph # [place] # Seg Neutrophils % Seg Neuts % (Manual) Lymphocytes % (Manual) Monocytes % (Manual) Eosinophils % (Manual) Seg Neutrophils # Lymphocytes # (Manual) Monocytes # (Manual) POC ABG pH POC ABG pCO2 POC ABG pO2 67 L Sodium Potassium Chloride Carbon Dioxide BUN Creatinine Glucose POC Glucose 109 H Uric Acid Calcium Total Bilirubin Alkaline Phosphatase CK-MB (CK-2) CK-MB (CK-2) Rel Index Total Protein Albumin Urine WBC (Auto) 15.0 H 01/21/17 01/21/17 01/21/17 04:23 05:20 05:20 WBC 11.8 H RDW 18.9 H Plt Count 135 L Lymph % (Auto) [place] % (Auto) Eos % (Auto) Baso % (Auto) Lymph # [place] # Seg Neutrophils % Seg Neuts % (Manual) Lymphocytes % (Manual) Monocytes % (Manual) Eosinophils % (Manual) Seg Neutrophils # Lymphocytes # (Manual) Monocytes # (Manual) POC ABG pH 7.338 L POC ABG pCO2 48.6 H POC ABG pO2 67 L Sodium 134 L Potassium Chloride 95.5 L Carbon Dioxide BUN 38 H Creatinine 1.5 H Glucose 110 H POC Glucose Uric Acid Calcium Total Bilirubin Alkaline Phosphatase CK-MB (CK-2) CK-MB (CK-2) Rel Index Total Protein Albumin Urine WBC (Auto) 01/21/17 01/21/17 01/21/17 05:38 18:20 22:54 WBC RDW Plt Count Lymph % (Auto) [place] % (Auto) Eos % (Auto) Baso % (Auto) Lymph # [place] # Seg Neutrophils % Seg Neuts % (Manual) Lymphocytes % (Manual) Monocytes % (Manual) Eosinophils % (Manual) Seg Neutrophils # Lymphocytes # (Manual) Monocytes # (Manual) POC ABG pH POC ABG pCO2 POC ABG pO2 Sodium Potassium Chloride Carbon Dioxide BUN Creatinine Glucose POC Glucose 120 H 135 H 163 H Uric Acid Calcium Total Bilirubin Alkaline Phosphatase CK-MB (CK-2) CK-MB (CK-2) Rel Index Total Protein Albumin Urine WBC (Auto) 01/22/17 01/22/17 01/22/17 04:00 04:00 11:27 WBC 11.6 H RDW 18.7 H Plt Count 116 L Lymph % (Auto) 2.9 L [place] % (Auto) 11.1 H Eos % (Auto) Baso % (Auto) Lymph # 0.3 L [place] # 1.3 H Seg Neutrophils % 84.2 H Seg Neuts % (Manual) Lymphocytes % (Manual) Monocytes % (Manual) Eosinophils % (Manual) Seg Neutrophils # 9.8 H Lymphocytes # (Manual) Monocytes # (Manual) POC ABG pH POC ABG pCO2 POC ABG pO2 Sodium 135 L Potassium Chloride 94.6 L Carbon Dioxide BUN 43 H Creatinine 1.9 H Glucose 148 H POC Glucose 151 H Uric Acid Calcium Total Bilirubin 1.60 H Alkaline Phosphatase CK-MB (CK-2) CK-MB (CK-2) Rel Index Total Protein 5.6 L Albumin 2.8 L Urine WBC (Auto) 01/22/17 01/22/17 01/22/17 11:37 13:00 17:14 WBC RDW Plt Count Lymph % (Auto) [place] % (Auto) Eos % (Auto) Baso % (Auto) Lymph # [place] # Seg Neutrophils % Seg Neuts % (Manual) Lymphocytes % (Manual) Monocytes % (Manual) Eosinophils % (Manual) Seg Neutrophils # Lymphocytes # (Manual) Monocytes # (Manual) POC ABG pH POC ABG pCO2 45.2 H POC ABG pO2 Sodium Potassium Chloride Carbon Dioxide BUN Creatinine Glucose POC Glucose 178 H Uric Acid 12.0 H Calcium Total Bilirubin Alkaline Phosphatase CK-MB (CK-2) CK-MB (CK-2) Rel Index Total Protein Albumin Urine WBC (Auto) 01/22/17 01/23/17 01/23/17 23:33 04:10 04:10 WBC RDW 19.1 H Plt Count Lymph % (Auto) 3.3 L [place] % (Auto) 11.5 H Eos % (Auto) Baso % (Auto) Lymph # 0.3 L [place] # 1.2 H Seg Neutrophils % 83.9 H Seg Neuts % (Manual) Lymphocytes % (Manual) Monocytes % (Manual) Eosinophils % (Manual) Seg Neutrophils # 8.4 H Lymphocytes # (Manual) Monocytes # (Manual) POC ABG pH POC ABG pCO2 POC ABG pO2 Sodium 134 L Potassium Chloride 95.1 L Carbon Dioxide BUN 48 H Creatinine 2.0 H Glucose 197 H POC Glucose 202 H Uric Acid Calcium Total Bilirubin Alkaline Phosphatase CK-MB (CK-2) CK-MB (CK-2) Rel Index Total Protein Albumin Urine WBC (Auto) 01/23/17 01/23/17 01/23/17 05:19 12:16 16:51 WBC RDW Plt Count Lymph % (Auto) [place] % (Auto) Eos % (Auto) Baso % (Auto) Lymph # [place] # Seg Neutrophils % Seg Neuts % (Manual) Lymphocytes % (Manual) Monocytes % (Manual) Eosinophils % (Manual) Seg Neutrophils # Lymphocytes # (Manual) Monocytes # (Manual) POC ABG pH 7.317 L POC ABG pCO2 49.6 H POC ABG pO2 Sodium Potassium Chloride Carbon Dioxide BUN Creatinine Glucose POC Glucose 186 H 146 H Uric Acid Calcium Total Bilirubin Alkaline Phosphatase CK-MB (CK-2) CK-MB (CK-2) Rel Index Total Protein Albumin Urine WBC (Auto) 01/23/17 01/23/17 01/24/17 17:24 23:57 05:12 WBC RDW Plt Count Lymph % (Auto) [place] % (Auto) Eos % (Auto) Baso % (Auto) Lymph # [place] # Seg Neutrophils % Seg Neuts % (Manual) Lymphocytes % (Manual) Monocytes % (Manual) Eosinophils % (Manual) Seg Neutrophils # Lymphocytes # (Manual) Monocytes # (Manual) POC ABG pH POC ABG pCO2 POC ABG pO2 Sodium Potassium Chloride Carbon Dioxide BUN Creatinine Glucose POC Glucose 176 H 212 H 215 H Uric Acid Calcium Total Bilirubin Alkaline Phosphatase CK-MB (CK-2) CK-MB (CK-2) Rel Index Total Protein Albumin Urine WBC (Auto) 01/24/17 01/24/17 01/24/17 05:44 07:50 12:14 WBC RDW Plt Count Lymph % (Auto) [place] % (Auto) Eos % (Auto) Baso % (Auto) Lymph # [place] # Seg Neutrophils % Seg Neuts % (Manual) Lymphocytes % (Manual) Monocytes % (Manual) Eosinophils % (Manual) Seg Neutrophils # Lymphocytes # (Manual) Monocytes # (Manual) POC ABG pH POC ABG pCO2 POC ABG pO2 Sodium 136 L D Potassium 2.0 L* D Chloride 120.0 H 97.9 L Carbon Dioxide 15 L D BUN 34 H 54 H Creatinine 1.9 H D Glucose 138 H 205 H POC Glucose 210 H Uric Acid Calcium 4.8 L* D Total Bilirubin Alkaline Phosphatase 33 L CK-MB (CK-2) CK-MB (CK-2) Rel Index Total Protein 3.0 L D Albumin 1.4 L Urine WBC (Auto) 01/24/17 01/24/17 01/24/17 16:54 23:35 Unknown WBC RDW 18.6 H Plt Count 138 L Lymph % (Auto) [place] % (Auto) Eos % (Auto) Baso % (Auto) Lymph # [place] # Seg Neutrophils % Seg Neuts % (Manual) 71.0 H Lymphocytes % (Manual) 5.0 L Monocytes % (Manual) 18.0 H Eosinophils % (Manual) 5.0 H Seg Neutrophils # Lymphocytes # (Manual) 0.4 L Monocytes # (Manual) 1.3 H POC ABG pH POC ABG pCO2 POC ABG pO2 Sodium Potassium Chloride Carbon Dioxide BUN Creatinine Glucose POC Glucose 227 H 260 H Uric Acid Calcium Total Bilirubin Alkaline Phosphatase CK-MB (CK-2) CK-MB (CK-2) Rel Index Total Protein Albumin Urine WBC (Auto) 01/25/17 01/25/17 01/25/17 05:52 07:54 07:54 WBC RDW 18.9 H Plt Count Lymph % (Auto) [place] % (Auto) Eos % (Auto) Baso % (Auto) Lymph # [place] # Seg Neutrophils % Seg Neuts % (Manual) Lymphocytes % (Manual) Monocytes % (Manual) Eosinophils % (Manual) Seg Neutrophils # Lymphocytes # (Manual) Monocytes # (Manual) POC ABG pH POC ABG pCO2 POC ABG pO2 Sodium 135 L Potassium Chloride 97.0 L Carbon Dioxide BUN 55 H Creatinine 1.6 H Glucose 235 H POC Glucose 226 H Uric Acid Calcium Total Bilirubin Alkaline Phosphatase CK-MB (CK-2) CK-MB (CK-2) Rel Index Total Protein Albumin Urine WBC (Auto) 01/25/17 01/25/17 01/25/17 11:38 17:15 23:21 WBC RDW Plt Count Lymph % (Auto) [place] % (Auto) Eos % (Auto) Baso % (Auto) Lymph # [place] # Seg Neutrophils % Seg Neuts % (Manual) Lymphocytes % (Manual) Monocytes % (Manual) Eosinophils % (Manual) Seg Neutrophils # Lymphocytes # (Manual) Monocytes # (Manual) POC ABG pH POC ABG pCO2 POC ABG pO2 Sodium Potassium Chloride Carbon Dioxide BUN Creatinine Glucose POC Glucose 226 H 249 H 245 H Uric Acid Calcium Total Bilirubin Alkaline Phosphatase CK-MB (CK-2) CK-MB (CK-2) Rel Index Total Protein Albumin Urine WBC (Auto) 01/26/17 01/26/17 01/26/17 05:27 12:52 18:16 WBC RDW Plt Count Lymph % (Auto) [place] % (Auto) Eos % (Auto) Baso % (Auto) Lymph # [place] # Seg Neutrophils % Seg Neuts % (Manual) Lymphocytes % (Manual) Monocytes % (Manual) Eosinophils % (Manual) Seg Neutrophils # Lymphocytes # (Manual) Monocytes # (Manual) POC ABG pH POC ABG pCO2 POC ABG pO2 Sodium Potassium Chloride Carbon Dioxide BUN Creatinine Glucose POC Glucose 244 H 231 H 231 H Uric Acid Calcium Total Bilirubin Alkaline Phosphatase CK-MB (CK-2) CK-MB (CK-2) Rel Index Total Protein Albumin Urine WBC (Auto) 01/26/17 01/26/17 01/27/17 18:18 23:33 04:45 WBC RDW 18.6 H Plt Count Lymph % (Auto) 4.6 L [place] % (Auto) 13.6 H Eos % (Auto) 4.4 H Baso % (Auto) Lymph # 0.4 L [place] # 1.1 H Seg Neutrophils % 76.5 H Seg Neuts % (Manual) Lymphocytes % (Manual) Monocytes % (Manual) Eosinophils % (Manual) Seg Neutrophils # Lymphocytes # (Manual) Monocytes # (Manual) POC ABG pH POC ABG pCO2 POC ABG pO2 Sodium Potassium Chloride Carbon Dioxide BUN Creatinine Glucose POC Glucose 191 H 202 H Uric Acid Calcium Total Bilirubin Alkaline Phosphatase CK-MB (CK-2) CK-MB (CK-2) Rel Index Total Protein Albumin Urine WBC (Auto) 01/27/17 01/27/17 01/27/17 04:45 05:36 12:24 WBC RDW Plt Count Lymph % (Auto) [place] % (Auto) Eos % (Auto) Baso % (Auto) Lymph # [place] # Seg Neutrophils % Seg Neuts % (Manual) Lymphocytes % (Manual) Monocytes % (Manual) Eosinophils % (Manual) Seg Neutrophils # Lymphocytes # (Manual) Monocytes # (Manual) POC ABG pH POC ABG pCO2 POC ABG pO2 Sodium Potassium Chloride Carbon Dioxide BUN 54 H Creatinine Glucose 202 H POC Glucose 202 H 219 H Uric Acid Calcium Total Bilirubin Alkaline Phosphatase CK-MB (CK-2) CK-MB (CK-2) Rel Index Total Protein Albumin Urine WBC (Auto) 01/27/17 01/27/17 01/28/17 17:44 23:38 04:00 WBC RDW Plt Count Lymph % (Auto) [place] % (Auto) Eos % (Auto) Baso % (Auto) Lymph # [place] # Seg Neutrophils % Seg Neuts % (Manual) Lymphocytes % (Manual) Monocytes % (Manual) Eosinophils % (Manual) Seg Neutrophils # Lymphocytes # (Manual) Monocytes # (Manual) POC ABG pH POC ABG pCO2 POC ABG pO2 Sodium Potassium Chloride Carbon Dioxide BUN Creatinine Glucose POC Glucose 237 H 253 H 236 H Uric Acid Calcium Total Bilirubin Alkaline Phosphatase CK-MB (CK-2) CK-MB (CK-2) Rel Index Total Protein Albumin Urine WBC (Auto) 01/28/17 01/28/17 01/28/17 05:00 05:00 12:02 WBC RDW 18.6 H Plt Count Lymph % (Auto) 4.8 L [place] % (Auto) 13.0 H Eos % (Auto) 4.8 H Baso % (Auto) Lymph # 0.4 L [place] # 1.2 H Seg Neutrophils % 76.3 H Seg Neuts % (Manual) Lymphocytes % (Manual) Monocytes % (Manual) Eosinophils % (Manual) Seg Neutrophils # Lymphocytes # (Manual) Monocytes # (Manual) POC ABG pH POC ABG pCO2 POC ABG pO2 Sodium 136 L Potassium Chloride Carbon Dioxide BUN 56 H Creatinine 1.4 H Glucose 225 H POC Glucose 195 H Uric Acid Calcium Total Bilirubin Alkaline Phosphatase CK-MB (CK-2) CK-MB (CK-2) Rel Index Total Protein Albumin Urine WBC (Auto) 01/28/17 01/28/17 01/29/17 17:57 23:50 04:57 WBC RDW Plt Count Lymph % (Auto) [place] % (Auto) Eos % (Auto) Baso % (Auto) Lymph # [place] # Seg Neutrophils % Seg Neuts % (Manual) Lymphocytes % (Manual) Monocytes % (Manual) Eosinophils % (Manual) Seg Neutrophils # Lymphocytes # (Manual) Monocytes # (Manual) POC ABG pH POC ABG pCO2 POC ABG pO2 Sodium Potassium Chloride Carbon Dioxide BUN Creatinine Glucose POC Glucose 193 H 181 H 199 H Uric Acid Calcium Total Bilirubin Alkaline Phosphatase CK-MB (CK-2) CK-MB (CK-2) Rel Index Total Protein Albumin Urine WBC (Auto) 01/29/17 01/29/17 01/29/17 05:30 05:30 11:20 WBC RDW 18.6 H Plt Count Lymph % (Auto) 4.3 L [place] % (Auto) 11.9 H Eos % (Auto) 5.0 H Baso % (Auto) Lymph # 0.3 L [place] # 1.0 H Seg Neutrophils % 78.1 H Seg Neuts % (Manual) Lymphocytes % (Manual) Monocytes % (Manual) Eosinophils % (Manual) Seg Neutrophils # Lymphocytes # (Manual) Monocytes # (Manual) POC ABG pH POC ABG pCO2 POC ABG pO2 Sodium Potassium Chloride 97.9 L Carbon Dioxide BUN 59 H Creatinine 1.6 H Glucose 220 H POC Glucose 215 H Uric Acid Calcium Total Bilirubin Alkaline Phosphatase CK-MB (CK-2) CK-MB (CK-2) Rel Index Total Protein Albumin Urine WBC (Auto) 01/29/17 01/30/17 01/30/17 17:37 04:00 04:00 WBC RDW 18.7 H Plt Count Lymph % (Auto) 6.6 L [place] % (Auto) 12.2 H Eos % (Auto) 4.4 H Baso % (Auto) Lymph # 0.6 L [place] # 1.1 H Seg Neutrophils % 76.3 H Seg Neuts % (Manual) Lymphocytes % (Manual) Monocytes % (Manual) Eosinophils % (Manual) Seg Neutrophils # Lymphocytes # (Manual) Monocytes # (Manual) POC ABG pH POC ABG pCO2 POC ABG pO2 Sodium 136 L Potassium Chloride 96.8 L Carbon Dioxide BUN 58 H Creatinine 1.9 H Glucose 121 H POC Glucose 147 H Uric Acid Calcium Total Bilirubin Alkaline Phosphatase CK-MB (CK-2) CK-MB (CK-2) Rel Index Total Protein Albumin Urine WBC (Auto) 01/30/17 01/30/17 01/30/17 05:30 12:08 15:54 WBC RDW Plt Count Lymph % (Auto) [place] % (Auto) Eos % (Auto) Baso % (Auto) Lymph # [place] # Seg Neutrophils % Seg Neuts % (Manual) Lymphocytes % (Manual) Monocytes % (Manual) Eosinophils % (Manual) Seg Neutrophils # Lymphocytes # (Manual) Monocytes # (Manual) POC ABG pH POC ABG pCO2 46.4 H POC ABG pO2 Sodium Potassium Chloride Carbon Dioxide BUN Creatinine Glucose POC Glucose 136 H 175 H Uric Acid Calcium Total Bilirubin Alkaline Phosphatase CK-MB (CK-2) CK-MB (CK-2) Rel Index Total Protein Albumin Urine WBC (Auto) 01/30/17 01/30/17 01/31/17 17:48 23:57 04:30 WBC RDW 18.7 H Plt Count Lymph % (Auto) 5.6 L [place] % (Auto) 9.4 H Eos % (Auto) 4.6 H Baso % (Auto) Lymph # 0.5 L [place] # 0.9 H Seg Neutrophils % 79.8 H Seg Neuts % (Manual) Lymphocytes % (Manual) Monocytes % (Manual) Eosinophils % (Manual) Seg Neutrophils # 7.8 H Lymphocytes # (Manual) Monocytes # (Manual) POC ABG pH POC ABG pCO2 POC ABG pO2 Sodium Potassium Chloride Carbon Dioxide BUN Creatinine Glucose POC Glucose 201 H 198 H Uric Acid Calcium Total Bilirubin Alkaline Phosphatase CK-MB (CK-2) CK-MB (CK-2) Rel Index Total Protein Albumin Urine WBC (Auto) 01/31/17 01/31/17 01/31/17 04:30 06:15 11:21 WBC RDW Plt Count Lymph % (Auto) [place] % (Auto) Eos % (Auto) Baso % (Auto) Lymph # [place] # Seg Neutrophils % Seg Neuts % (Manual) Lymphocytes % (Manual) Monocytes % (Manual) Eosinophils % (Manual) Seg Neutrophils # Lymphocytes # (Manual) Monocytes # (Manual) POC ABG pH POC ABG pCO2 POC ABG pO2 Sodium 132 L Potassium Chloride 93.2 L Carbon Dioxide BUN 61 H Creatinine 1.9 H Glucose 300 H POC Glucose 167 H 118 H Uric Acid Calcium Total Bilirubin Alkaline Phosphatase CK-MB (CK-2) CK-MB (CK-2) Rel Index Total Protein Albumin Urine WBC (Auto) 01/31/17 01/31/17 02/01/17 17:39 23:40 05:52 WBC RDW Plt Count Lymph % (Auto) [place] % (Auto) Eos % (Auto) Baso % (Auto) Lymph # [place] # Seg Neutrophils % Seg Neuts % (Manual) Lymphocytes % (Manual) Monocytes % (Manual) Eosinophils % (Manual) Seg Neutrophils # Lymphocytes # (Manual) Monocytes # (Manual) POC ABG pH POC ABG pCO2 POC ABG pO2 Sodium Potassium Chloride Carbon Dioxide BUN Creatinine Glucose POC Glucose 138 H 155 H 152 H Uric Acid Calcium Total Bilirubin Alkaline Phosphatase CK-MB (CK-2) CK-MB (CK-2) Rel Index Total Protein Albumin Urine WBC (Auto)
--- NOTE | 2017-02-01 12:51 | Progress Note ---
Assessment and Plan Assessment: Nonoliguric acute kidney injury attributed to prerenal azotemia s/p PEA arrest Dilated cardiomyopathy - EF 10-15% Acute systolic heart failure Acute hypoxic respiratory failure - currently on bipap Plan: Renal function is stable. UOP 2.2 liters yesterday Diuresis resumed per cardiology Rate control per cardiology Strict I/O Avoid potential nephrotoxins Dose medications for renal function Subjective Date of service: 02/01/17 Principal diagnosis: CHF exacerbation Interval history: Patient reports that her breathing is unchanged. Objective - Vital Signs Vital signs: Vital Signs - 12hr 02/01/17 02/01/17 02/01/17 01:00 01:02 02:00 Temperature Pulse Rate 69 60 66 Pulse Rate [ From Monitor] Respiratory 22 17 Rate Blood Pressure 132/82 99/60 126/72 O2 Sat by Pulse 96 97 Oximetry 02/01/17 02/01/17 02/01/17 03:00 03:51 04:00 Temperature 95.9 F L Pulse Rate 64 82 63 Pulse Rate [ From Monitor] Respiratory 17 18 16 Rate Blood Pressure 110/66 117/67 112/64 O2 Sat by Pulse 100 98 100 Oximetry 02/01/17 02/01/17 02/01/17 05:00 06:00 07:00 Temperature Pulse Rate 71 67 69 Pulse Rate [ From Monitor] Respiratory 20 17 20 Rate Blood Pressure 130/99 133/71 121/74 O2 Sat by Pulse 98 98 71 L Oximetry 02/01/17 02/01/17 02/01/17 08:00 08:30 09:00 Temperature 97.0 F L Pulse Rate 65 114 H Pulse Rate [ 65 From Monitor] Respiratory 23 28 H Rate Blood Pressure 121/66 143/97 O2 Sat by Pulse 99 98 94 Oximetry 02/01/17 02/01/17 02/01/17 10:00 10:06 10:23 Temperature Pulse Rate 72 72 74 Pulse Rate [ From Monitor] Respiratory 24 23 Rate Blood Pressure 145/90 143/95 145/90 O2 Sat by Pulse 95 95 Oximetry 02/01/17 12:00 Temperature 97.4 F L Pulse Rate Pulse Rate [ From Monitor] Respiratory Rate Blood Pressure O2 Sat by Pulse Oximetry - General Appearance General appearance: obese, other (Bipap in place) EENT: ATNC Respiratory: Present: Decreased Breath Sounds Cardiology: regular, S1S2 Gastrointestinal: no tenderness, no distended, obese Neurologic: no focal deficit Musculoskeletal: other (+edema) Psychiatric: cooperative - Lab 02/01/17 12:50 02/01/17 12:50 Most recent lab results Calcium 9.2 mg/dL (8.4-10.2) 01/31/17 04:30 Magnesium 2.00 mg/dL (1.7-2.3) 01/29/17 05:30
[2017-02-01 13:13] LABS: Basophils % (Auto) 0.5 % (0.0-1.8); Eosinophils % (Auto) 5.2 % (0.0-4.3); Hemoglobin 12.7 gm/dl (10.1-14.3); Mean Corpuscular HGB Conc 33 % (30-34); Mean Corpuscular Hemoglobin 29 pg (28-32); Mean Corpuscular Volume 88 fl (79-97); Platelet Count 218 K/mm3 (140-440); Red Blood Count 4.43 M/mm3 (3.65-5.03); Red Cell Distribution Width 18.6 % (13.2-15.2); White Blood Count 9.6 K/mm3 (4.5-11.0)
[2017-02-01 13:35] LABS: BUN/Creatinine Ratio 36.84; Calcium 9.5 mg/dL (8.4-10.2); Chloride 99.5 mmol/L (98-107); Potassium 4.3 mmol/L (3.6-5.0)
[2017-02-01] MEDS ORDERED: ISOPTO TEARS 0.5% OU PRN (17:39)
--- NOTE | 2017-02-01 17:55 | Progress Note ---
Assessment and Plan Assessment and plan: S/p PEA cardiorespiratory arrest 01/19 Acute on chronic biventricular systolic heart failure. - Henao chiseling diuresing Aspiration PNA - Treated currently off oxygen Sepsis - Resolved Acute hypoxic respiratory failure - Currently on oxygen facemask - We'll change to high flow intranasal oxygen tomorrow Acute renal failure - Creatinine is 2.2, stable Hyponatremia - Resolved Accelerated junction arrhythmia / 1st degree AV block - Cardiology following NSVT. Continue medications per cardiology. Acute toxic metabolic encephalopathy - Resolved. Diabetes type II, uncontrolled. Continue sliding scale and Accu-Cheks. Hyperlipidemia History of Breast CA Obesity Disposition. Transfer to LTAC when bed available. History Interval history: Patient was seen and evaluated this morning, patient says she doesn't want to take oxycodone. Patient asks her eye medications. She is breathing okay no new complaints. On oxygen face mask. Hospitalist Physical - Physical exam Narrative exam: Not in cardiopulmonary distress. The patient appeared well nourished and normally developed. Vital signs as documented. Head exam is unremarkable. No scleral icterus . Neck is without jugular venous distension, thyromegaly, or carotid bruits. Lungs are clear to auscultation. Cardiac exam reveals regular rate and Rhythm. Abdominal exam reveals normal bowel sounds, no masses. Extremities are nonedematous and both femoral and pedal pulses are normal. PIANO MAKER: Alert and oriented 3. No focal weakness. - Constitutional Vitals: Temp Pulse Resp BP Pulse Ox 97.4 F L 63 15 119/61 99 02/01/17 16:00 02/01/17 14:00 02/01/17 14:00 02/01/17 14:00 02/01/17 14:00 General appearance: Present: well-nourished, obese, other (family present) Results - Labs CBC & Chem 7: 02/01/17 12:50 02/01/17 12:50 Labs: Laboratory Last Values WBC 9.6 K/mm3 (4.5-11.0) 02/01/17 12:50 RBC 4.43 M/mm3 (3.65-5.03) 02/01/17 12:50 Hgb 12.7 gm/dl (10.1-14.3) 02/01/17 12:50 Hct 39.0 % (30.3-42.9) 02/01/17 12:50 MCV 88 fl (79-97) 02/01/17 12:50 MCH 29 pg (28-32) 02/01/17 12:50 MCHC 33 % (30-34) 02/01/17 12:50 RDW 18.6 % (13.2-15.2) H 02/01/17 12:50 Plt Count 218 K/mm3 (140-440) 02/01/17 12:50 Lymph % (Auto) 3.6 % (13.4-35.0) L 02/01/17 12:50 [place]key % (Auto) 9.5 % (0.0-7.3) H 02/01/17 12:50 Eos % (Auto) 5.2 % (0.0-4.3) H 02/01/17 12:50 Baso % (Auto) 0.5 % (0.0-1.8) 02/01/17 12:50 Lymph # 0.3 K/mm3 (1.2-5.4) L 02/01/17 12:50 [place] # 0.9 K/mm3 (0.0-0.8) H 02/01/17 12:50 Eos # 0.5 K/mm3 (0.0-0.4) H 02/01/17 12:50 Baso # 0.1 K/mm3 (0.0-0.1) 02/01/17 12:50 Add Manual Diff Complete 01/24/17 Unknown Total Counted 100 01/24/17 Unknown Seg Neutrophils % 81.2 % (40.0-70.0) H 02/01/17 12:50 Seg Neuts % (Manual) 71.0 % (40.0-70.0) H 01/24/17 Unknown Band Neutrophils % 0 % 01/24/17 Unknown Lymphocytes % (Manual) 5.0 % (13.4-35.0) L 01/24/17 Unknown Reactive Lymphs % (Man) 0 % 01/24/17 Unknown Monocytes % (Manual) 18.0 % (0.0-7.3) H 01/24/17 Unknown Eosinophils % (Manual) 5.0 % (0.0-4.3) H 01/24/17 Unknown Basophils % (Manual) 1.0 % (0.0-1.8) 01/24/17 Unknown Metamyelocytes % 0 % 01/24/17 Unknown Myelocytes % 0 % 01/24/17 Unknown Promyelocytes % 0 % 01/24/17 Unknown Blast Cells % 0 % 01/24/17 Unknown Nucleated RBC % Not Reportable 01/24/17 Unknown Seg Neutrophils # 7.8 K/mm3 (1.8-7.7) H 02/01/17 12:50 Seg Neutrophils # Man 5.1 K/mm3 (1.8-7.7) 01/24/17 Unknown Band Neutrophils # 0.0 K/mm3 01/24/17 Unknown Lymphocytes # (Manual) 0.4 K/mm3 (1.2-5.4) L 01/24/17 Unknown Abs React Lymphs (Man) 0.0 K/mm3 01/24/17 Unknown Monocytes # (Manual) 1.3 K/mm3 (0.0-0.8) H 01/24/17 Unknown Eosinophils # (Manual) 0.4 K/mm3 (0.0-0.4) 01/24/17 Unknown Basophils # (Manual) 0.1 K/mm3 (0.0-0.1) 01/24/17 Unknown Metamyelocytes # 0.0 K/mm3 01/24/17 Unknown Myelocytes # 0.0 K/mm3 01/24/17 Unknown Promyelocytes # 0.0 K/mm3 01/24/17 Unknown Blast Cells # 0.0 K/mm3 01/24/17 Unknown WBC Morphology Not Reportable 01/24/17 Unknown Hypersegmented Neuts Not Reportable 01/24/17 Unknown Hyposegmented Neuts Not Reportable 01/24/17 Unknown Hypogranular Neuts Not Reportable 01/24/17 Unknown Smudge Cells Not Reportable 01/24/17 Unknown Toxic Granulation Not Reportable 01/24/17 Unknown Toxic Vacuolation Not Reportable 01/24/17 Unknown Dohle Bodies Not Reportable 01/24/17 Unknown Pelger-Huet Anomaly Not Reportable 01/24/17 Unknown Yusuf Rods Not Reportable 01/24/17 Unknown Platelet Estimate Consistent w auto 01/24/17 Unknown Clumped Platelets Not Reportable 01/24/17 Unknown Plt Clumps, EDTA Not Reportable 01/24/17 Unknown Large Platelets Not Reportable 01/24/17 Unknown Giant Platelets Not Reportable 01/24/17 Unknown Platelet Satelliting Not Reportable 01/24/17 Unknown Plt Morphology Comment Not Reportable 01/24/17 Unknown RBC Morphology Normal 01/24/17 Unknown Dimorphic RBCs Not Reportable 01/24/17 Unknown Polychromasia Not Reportable 01/24/17 Unknown Hypochromasia Not Reportable 01/24/17 Unknown Poikilocytosis Not Reportable 01/24/17 Unknown Anisocytosis Not Reportable 01/24/17 Unknown Microcytosis Not Reportable 01/24/17 Unknown Macrocytosis Not Reportable 01/24/17 Unknown Spherocytes Not Reportable 01/24/17 Unknown Pappenheimer Bodies Not Reportable 01/24/17 Unknown Sickle Cells Not Reportable 01/24/17 Unknown Target Cells Not Reportable 01/24/17 Unknown Tear Drop Cells Not Reportable 01/24/17 Unknown Ovalocytes Not Reportable 01/24/17 Unknown Helmet Cells Not Reportable 01/24/17 Unknown [place] Bodies Not Reportable 01/24/17 Unknown [place] Rings Not Reportable 01/24/17 Unknown [place] Cells Not Reportable 01/24/17 Unknown Bite Cells Not Reportable 01/24/17 Unknown Crenated Cell Not Reportable 01/24/17 Unknown Elliptocytes Not Reportable 01/24/17 Unknown Acanthocytes (Spur) Not Reportable 01/24/17 Unknown Rouleaux Not Reportable 01/24/17 Unknown Hemoglobin C Crystals Not Reportable 01/24/17 Unknown Schistocytes Not Reportable 01/24/17 Unknown Malaria parasites Not Reportable 01/24/17 Unknown Trevor Bodies Not Reportable 01/24/17 Unknown Hem Pathologist Commnt No 01/24/17 Unknown POC ABG pH 7.355 (7.35-7.45) 01/30/17 15:54 POC ABG pCO2 46.4 (35-45) H 01/30/17 15:54 POC ABG pO2 84 (80-105) 01/30/17 15:54 POC ABG HCO3 25.9 01/30/17 15:54 POC ABG Total CO2 27 01/30/17 15:54 POC ABG O2 Sat 96 01/30/17 15:54 POC ABG Base Excess 0 01/30/17 15:54 FiO2 40 % 01/30/17 15:54 Sodium 138 mmol/L (137-145) 02/01/17 12:50 Potassium 4.3 mmol/L (3.6-5.0) 02/01/17 12:50 Chloride 99.5 mmol/L (98-107) 02/01/17 12:50 Carbon Dioxide 29 mmol/L (22-30) 02/01/17 12:50 Anion Gap 14 mmol/L 02/01/17 12:50 BUN 70 mg/dL (7-17) H 02/01/17 12:50 Creatinine 1.9 mg/dL (0.7-1.2) H 02/01/17 12:50 Estimated GFR 31 ml/min 02/01/17 12:50 BUN/Creatinine Ratio 36.84 % 02/01/17 12:50 Glucose 175 mg/dL (65-100) H 02/01/17 12:50 POC Glucose 152 (70-105) H 02/01/17 16:53 Osmolality 298 Mosm/kg 01/22/17 13:00 Uric Acid 12.0 mg/dL (3.5-7.6) H 01/22/17 13:00 Calcium 9.5 mg/dL (8.4-10.2) 02/01/17 12:50 Magnesium 2.00 mg/dL (1.7-2.3) 01/29/17 05:30 Total Bilirubin 1.60 mg/dL (0.1-1.2) H 01/22/17 04:00 AST 25 units/L (5-40) 01/22/17 04:00 ALT 12 units/L (7-56) 01/22/17 04:00 Alkaline Phosphatase 63 units/L (35-129) 01/22/17 04:00 Total Creatine Kinase 98 units/L (30-135) 01/19/17 13:02 CK-MB (CK-2) 4.1 ng/mL (0.0-4.0) H 01/19/17 13:02 CK-MB (CK-2) Rel Index 4.1 (0-4) H 01/19/17 13:02 Troponin T 0.022 ng/mL (0.00-0.029) 01/19/17 13:02 NT-Pro-B Natriuret Pep 8400 pg/mL (0-900) H 01/15/17 09:03 Total Protein 5.6 g/dL (6.3-8.2) L 01/22/17 04:00 Albumin 2.8 g/dL (3.9-5) L 01/22/17 04:00 Albumin/Globulin Ratio 1.0 % 01/22/17 04:00 Urine Color Yellow (Yellow) 01/20/17 09:34 Urine Turbidity Clear (Clear) 01/20/17 09:34 Urine pH 5.0 (5.0-7.0) 01/20/17 09:34 Ur Specific [place] 1.006 (1.003-1.030) 01/20/17 09:34 Urine Protein <15 mg/dl mg/dL (Negative) 01/20/17 09:34 Urine Glucose (UA) Neg mg/dL (Negative) 01/20/17 09:34 Urine Ketones Neg mg/dL (Negative) 01/20/17 09:34 Urine Blood Mod (Negative) 01/20/17 09:34 Urine Nitrite Neg (Negative) 01/20/17 09:34 Urine Bilirubin Neg (Negative) 01/20/17 09:34 Urine Urobilinogen < 2.0 mg/dL (<2.0) 01/20/17 09:34 Ur Leukocyte Esterase Mod (Negative) 01/20/17 09:34 Urine WBC (Auto) 15.0 /HPF (0.0-6.0) H 01/20/17 09:34 Urine RBC (Auto) 12.0 /HPF (0.0-6.0) 01/20/17 09:34 U Epithel Cells (Auto) 2.0 /HPF (0-13.0) 01/20/17 09:34 Urine Bacteria (Auto) 1+ /HPF (Negative) 01/20/17 09:34 Amorphous Crystals Few 01/20/17 09:34 Urine Yeast (Budding) 1+ /HPF 01/20/17 09:34 Vancomycin Trough 16.5 ug/mL (5.0-20.0) 01/22/17 13:00
[2017-02-01] MEDS: PRED FORTE 1% OU SCH ×2 (18:44→23:53)
[2017-02-01] MEDS: ZOCOR PO SCH (22:53)
[2017-02-02] MEDS: NOVOLOG SUB-Q SCH ×3 (06:00→12:12)
[2017-02-02 06:50] LABS: Basophils % (Auto) 0.9 % (0.0-1.8); Eosinophils % (Auto) 6.7 % (0.0-4.3); Hematocrit 40.4 % (30.3-42.9); Hemoglobin 13.1 gm/dl (10.1-14.3); Mean Corpuscular HGB Conc 32 % (30-34); Mean Corpuscular Hemoglobin 29 pg (28-32); Mean Corpuscular Volume 89 fl (79-97); Platelet Count 225 K/mm3 (140-440); Red Blood Count 4.54 M/mm3 (3.65-5.03); Red Cell Distribution Width 18.9 % (13.2-15.2); White Blood Count 8.7 K/mm3 (4.5-11.0)
[2017-02-02 07:05] LABS: BUN/Creatinine Ratio 38.82; Calcium 9.1 mg/dL (8.4-10.2); Chloride 100.5 mmol/L (98-107); Potassium 4.2 mmol/L (3.6-5.0)
[2017-02-02] MEDS: HEPARIN SUB-Q SCH ×2 (07:26→14:18)
[2017-02-02] MEDS: BABY ASPIRIN PO SCH (09:18)
[2017-02-02] MEDS: BUMEX PO SCH (09:18)
[2017-02-02] MEDS: PEPCID PO SCH (09:18)
[2017-02-02] MEDS: LEVEMIR SUB-Q SCH (09:18)
[2017-02-02] MEDS: LOPRESSOR PO SCH (09:18)
[2017-02-02] MEDS: PRED FORTE 1% OU SCH (09:20)
--- NOTE | 2017-02-02 09:20 | Progress Note ---
Assessment and Plan S/p PEA cardiorespiratory arrest 01/19 Extubated Ade negative for AMI s/p code; ECG with no ischemic changes Dobutamine gtt d/c'd s/p IV amio 150mg bolus x 1. Acute on chronic biventricular systolic heart failure Cont strict I/O cont bumex. cont lopressor. ACEI/ARB held in setting of CIERRA. Aspiration PNA per ID. CIERRA / Hyperkalemia nephrology following Hyponatremia monitor Accelerated junction arrhythmia / 1st degree AV block Per EP, QRS vector same as office EKG unlikely VT Also with intermittent SR with prolonged NM v. IVCD v. idioventricular rhythm noted on tele. continue lopressor. Cardiomyopathy EF 10 - 15% NSVT Diabetes Hypertension Hyperlipidemia History of Breast CA Obesity Increase Lopressor to 25mg PO TID for HR optimization. Obtain PT consult. Pt awaiting LTAC placement. The patient has been seen in conjunction with Dr. Galaviz who agrees with the assessment and plan of care. Subjective Date of service: 02/02/17 Principal diagnosis: CHF exacerbation Interval history: Pt resting in bed, on O2 via BiPAP. Tachycardic on tele, BPs WNL. Objective Last Vital Signs Temp 97.8 F 02/02/17 08:00 Pulse 123 H 02/02/17 09:12 Resp 26 H 02/02/17 09:12 BP 138/97 02/02/17 09:12 Pulse Ox 96 02/02/17 09:12 - Physical Examination General: Appears Well, No Apparent Distress HEENT: Positive: PERRL, EOMI, Normocephaly Neck: Positive: neck supple, trachea midline Cardiac: Positive: S1/S2, Tachycardia Lungs: Positive: Decreased Breath Sounds, Oxygen Neuro: Positive: Grossly Intact Abdomen: Positive: Unremarkable, Soft, Active Bowel Sounds Skin: Negative: Rash, Suspicious Lesions Musculoskeletal: No Fluid Collection, No Pain Extremities: Present: warm, Other (chronic venous stasis changes). Absent: edema - Labs and Meds CBC 02/01/17 02/02/17 Range/Units 12:50 Unknown WBC 9.6 8.7 (4.5-11.0) K/mm3 RBC 4.43 4.54 (3.65-5.03) M/mm3 Hgb 12.7 13.1 (10.1-14.3) gm/dl Hct 39.0 40.4 (30.3-42.9) % Plt Count 218 225 (140-440) K/mm3 Lymph # 0.3 L 0.4 L (1.2-5.4) K/mm3 [place] # 0.9 H 0.8 (0.0-0.8) K/mm3 Eos # 0.5 H 0.6 H (0.0-0.4) K/mm3 Baso # 0.1 0.1 (0.0-0.1) K/mm3 Comprehensive Metabolic Panel 02/01/17 02/02/17 Range/Units 12:50 Unknown Sodium 138 139 (137-145) mmol/L Potassium 4.3 4.2 (3.6-5.0) mmol/L Chloride 99.5 100.5 (98-107) mmol/L Carbon Dioxide 29 28 (22-30) mmol/L BUN 70 H 66 H (7-17) mg/dL Creatinine 1.9 H 1.7 H (0.7-1.2) mg/dL Glucose 175 H 117 H (65-100) mg/dL Calcium 9.5 9.1 (8.4-10.2) mg/dL - Imaging and Cardiology EKG: report reviewed (Tachycardia of 128/min Junctional rhythm), image reviewed Stress echo: report reviewed (Cardiac PET 11/11: very small mild anterior, anteroapical mild reversible defect. EF stress 58%) Echo: report reviewed (ECHO 11/16: TDS, EF cannot be determined due to poor image quality, ) Cardiac cath: report reviewed ([facility] 06/07: LM: patent, LCX: diffuse disease, LAD: diffuse disease, RCA: diffuse disease, mid 40%)
--- NOTE | 2017-02-02 10:35 | Progress Note ---
Assessment and Plan Impression: * CIERRA on CKD * NSTEMI * Cardiomyopathy--EF 10% * S/P PEA arrest * Junctional rhythm Plan: * strict i/os * daily lytes * avoid nephrotoxins * keep MAP >65 * vasopressors prn * diuresis per cards, cr stable today Subjective Date of service: 02/02/17 Principal diagnosis: CHF exacerbation Interval history: resting well in bed today, no events noted Objective - Exam Narrative Exam: General appearance:critically ill, on vent - EENT Eyes: Present: PERRL ENT: hearing intact, clear oral mucosa - Neck Neck: Present: supple, normal ROM - Respiratory Respiratory effort: normal Respiratory: bilateral: CTA, rales, rhonchi - Cardiovascular Rhythm: regular Heart Sounds: Present: S1 & S2. Absent: rub, click - Extremities Extremities: no ischemia, pulses symmetrical, No edema Extremity abnormal: edema Peripheral Pulses: within normal limits - Abdominal General gastrointestinal: Present: soft, non-tender, non-distended, normal bowel sounds Female genitourinary: Present: normal - Rectal Rectal Exam: deferred - Integumentary Integumentary: Present: clear, warm, dry - Musculoskeletal Musculoskeletal: gait normal, strength equal bilaterally - Psychiatric Psychiatric: appropriate mood/affect, intact judgment & insight - Neurologic Neurologic: CNII-XII intact, moves all extremities - Vital Signs Vital signs: Vital Signs - 12hr 02/01/17 02/01/17 02/01/17 22:53 23:00 23:27 Temperature 98.8 F Pulse Rate 61 72 Pulse Rate [ From Monitor] Respiratory 14 Rate Blood Pressure 96/47 97/66 O2 Sat by Pulse 99 Oximetry 02/02/17 02/02/17 02/02/17 00:00 01:00 02:00 Temperature Pulse Rate 62 92 H 110 H Pulse Rate [ 79 From Monitor] Respiratory 21 17 18 Rate Blood Pressure 118/65 106/65 122/83 O2 Sat by Pulse 100 99 99 Oximetry 02/02/17 02/02/17 02/02/17 03:00 03:23 04:00 Temperature 97.2 F L Pulse Rate 96 H 100 H Pulse Rate [ 63 From Monitor] Respiratory 14 22 Rate Blood Pressure 110/52 111/81 O2 Sat by Pulse 98 97 Oximetry 02/02/17 02/02/17 02/02/17 05:00 06:00 07:00 Temperature Pulse Rate 82 83 116 H Pulse Rate [ From Monitor] Respiratory 18 14 21 Rate Blood Pressure 130/81 130/68 120/90 O2 Sat by Pulse 96 98 99 Oximetry 02/02/17 02/02/17 02/02/17 08:00 08:38 09:00 Temperature 97.8 F Pulse Rate 101 H 125 H Pulse Rate [ From Monitor] Respiratory 24 29 H Rate Blood Pressure 112/85 138/97 O2 Sat by Pulse 100 99 94 Oximetry 02/02/17 02/02/17 02/02/17 09:12 09:18 10:00 Temperature Pulse Rate 123 H 119 H 66 Pulse Rate [ From Monitor] Respiratory 26 H 17 Rate Blood Pressure 138/97 138/97 106/70 O2 Sat by Pulse 96 99 Oximetry - Lab 02/02/17 Unknown 02/02/17 Unknown Most recent lab results Calcium 9.1 mg/dL (8.4-10.2) 02/02/17 Unknown Magnesium 2.00 mg/dL (1.7-2.3) 01/29/17 05:30
--- NOTE | 2017-02-02 11:33 | Progress Note ---
Assessment and Plan 71 y/o female with acute respiratory failure, acute renal failure and dilated cardiomyopathy 1. Net negative state if possible 2. Currently on PO Bumex, negative 3. continue bipap therapy, will need to be transported on bipap 4. Ok with transfer to [facility] when bed available CCT 31 minutes. Subjective Date of service: 02/02/17 Principal diagnosis: CHF exacerbation Interval history: patient is essentially bipap dependent. Tolerates HFNC from a numbers standpoint but patient feels as if she is more short of breath of bipap Objective Vital Signs - 12hr 02/02/17 02/02/17 02/02/17 00:00 01:00 02:00 Temperature Pulse Rate 62 92 H 110 H Pulse Rate [ 79 From Monitor] Respiratory 21 17 18 Rate Blood Pressure 118/65 106/65 122/83 O2 Sat by Pulse 100 99 99 Oximetry 02/02/17 02/02/17 02/02/17 03:00 03:23 04:00 Temperature 97.2 F L Pulse Rate 96 H 100 H Pulse Rate [ 63 From Monitor] Respiratory 14 22 Rate Blood Pressure 110/52 111/81 O2 Sat by Pulse 98 97 Oximetry 02/02/17 02/02/17 02/02/17 05:00 06:00 07:00 Temperature Pulse Rate 82 83 116 H Pulse Rate [ From Monitor] Respiratory 18 14 21 Rate Blood Pressure 130/81 130/68 120/90 O2 Sat by Pulse 96 98 99 Oximetry 02/02/17 02/02/17 02/02/17 08:00 08:38 09:00 Temperature 97.8 F Pulse Rate 101 H 125 H Pulse Rate [ From Monitor] Respiratory 24 29 H Rate Blood Pressure 112/85 138/97 O2 Sat by Pulse 100 99 94 Oximetry 02/02/17 02/02/17 02/02/17 09:12 09:18 10:00 Temperature Pulse Rate 123 H 119 H 66 Pulse Rate [ From Monitor] Respiratory 26 H 17 Rate Blood Pressure 138/97 138/97 106/70 O2 Sat by Pulse 96 99 Oximetry 02/02/17 11:00 Temperature Pulse Rate 71 Pulse Rate [ From Monitor] Respiratory 18 Rate Blood Pressure 125/65 O2 Sat by Pulse 100 Oximetry Constitutional: no acute distress, alert Eyes: non-icteric ENT: other (on BiPAP) Neck: supple, no JVD Effort: normal Ascultation: Bilateral: clear, diminished breath sounds (bases), rhonchi ( bilateral), other (coarse, equal BS bilaterally) Cardiovascular: irregular rhythm Gastrointestinal: normoactive bowel sounds, soft, other (obese) Integumentary: normal Extremities: no cyanosis, no edema, pink and warm, other (SCDs are in place) Neurologic: normal mental status, non-focal exam, pupils equal and round Psychiatric: mood appropriate, affect normal CBC and BMP: 02/02/17 Unknown 02/02/17 Unknown ABG, PT/INR, D-dimer: ABG POC ABG pH 7.355 (7.35-7.45) 01/30/17 15:54 POC ABG pCO2 46.4 (35-45) H 01/30/17 15:54 POC ABG pO2 84 (80-105) 01/30/17 15:54 POC ABG HCO3 25.9 01/30/17 15:54 POC ABG Total CO2 27 01/30/17 15:54 POC ABG O2 Sat 96 01/30/17 15:54 Abnormal lab findings: Abnormal Labs 01/15/17 01/15/17 01/15/17 17:45 22:06 23:40 WBC RDW 18.6 H Plt Count 114 L Lymph % (Auto) [place] % (Auto) Eos % (Auto) Baso % (Auto) Lymph # [place] # Eos # Seg Neutrophils % Seg Neuts % (Manual) 82.0 H Lymphocytes % (Manual) 7.0 L Monocytes % (Manual) Eosinophils % (Manual) Seg Neutrophils # Lymphocytes # (Manual) 0.4 L Monocytes # (Manual) POC ABG pH POC ABG pCO2 POC ABG pO2 Sodium Potassium Chloride Carbon Dioxide BUN Creatinine Glucose POC Glucose 147 H 135 H Uric Acid Calcium Total Bilirubin Alkaline Phosphatase CK-MB (CK-2) CK-MB (CK-2) Rel Index Total Protein Albumin Urine WBC (Auto) 01/15/17 01/16/17 01/16/17 23:40 03:44 08:49 WBC RDW Plt Count Lymph % (Auto) [place] % (Auto) Eos % (Auto) Baso % (Auto) Lymph # [place] # Eos # Seg Neutrophils % Seg Neuts % (Manual) Lymphocytes % (Manual) Monocytes % (Manual) Eosinophils % (Manual) Seg Neutrophils # Lymphocytes # (Manual) Monocytes # (Manual) POC ABG pH POC ABG pCO2 POC ABG pO2 Sodium 132 L Potassium 5.1 H Chloride 95.5 L Carbon Dioxide 20 L BUN 36 H Creatinine Glucose 128 H POC Glucose 117 H 126 H Uric Acid Calcium Total Bilirubin Alkaline Phosphatase CK-MB (CK-2) CK-MB (CK-2) Rel Index Total Protein Albumin Urine WBC (Auto) 01/16/17 01/16/17 01/16/17 08:56 08:56 12:06 WBC RDW 19.2 H Plt Count Lymph % (Auto) 6.6 L [place] % (Auto) 12.0 H Eos % (Auto) 5.8 H Baso % (Auto) 1.9 H Lymph # 0.3 L [place] # Eos # Seg Neutrophils % 73.7 H Seg Neuts % (Manual) Lymphocytes % (Manual) Monocytes % (Manual) Eosinophils % (Manual) Seg Neutrophils # Lymphocytes # (Manual) Monocytes # (Manual) POC ABG pH POC ABG pCO2 POC ABG pO2 Sodium 132 L Potassium Chloride 95.1 L Carbon Dioxide 19 L BUN 36 H Creatinine 1.3 H Glucose 129 H POC Glucose 172 H Uric Acid Calcium Total Bilirubin 1.40 H Alkaline Phosphatase CK-MB (CK-2) CK-MB (CK-2) Rel Index Total Protein 6.2 L Albumin 3.1 L Urine WBC (Auto) 01/16/17 01/17/17 01/17/17 22:34 05:29 05:29 WBC RDW 19.2 H Plt Count Lymph % (Auto) 5.9 L [place] % (Auto) 10.8 H Eos % (Auto) Baso % (Auto) Lymph # 0.4 L [place] # Eos # Seg Neutrophils % 80.1 H Seg Neuts % (Manual) Lymphocytes % (Manual) Monocytes % (Manual) Eosinophils % (Manual) Seg Neutrophils # Lymphocytes # (Manual) Monocytes # (Manual) POC ABG pH POC ABG pCO2 POC ABG pO2 Sodium 131 L Potassium 5.3 H Chloride 94.8 L Carbon Dioxide 21 L BUN 39 H Creatinine 1.4 H Glucose 196 H POC Glucose 210 H Uric Acid Calcium Total Bilirubin Alkaline Phosphatase CK-MB (CK-2) CK-MB (CK-2) Rel Index Total Protein Albumin Urine WBC (Auto) 01/17/17 01/17/17 01/17/17 07:39 17:39 22:45 WBC RDW Plt Count Lymph % (Auto) [place] % (Auto) Eos % (Auto) Baso % (Auto) Lymph # [place] # Eos # Seg Neutrophils % Seg Neuts % (Manual) Lymphocytes % (Manual) Monocytes % (Manual) Eosinophils % (Manual) Seg Neutrophils # Lymphocytes # (Manual) Monocytes # (Manual) POC ABG pH POC ABG pCO2 POC ABG pO2 Sodium Potassium Chloride Carbon Dioxide BUN Creatinine Glucose POC Glucose 198 H 208 H 223 H Uric Acid Calcium Total Bilirubin Alkaline Phosphatase CK-MB (CK-2) CK-MB (CK-2) Rel Index Total Protein Albumin Urine WBC (Auto) 01/18/17 01/18/17 01/18/17 05:07 08:32 12:24 WBC RDW Plt Count Lymph % (Auto) [place] % (Auto) Eos % (Auto) Baso % (Auto) Lymph # [place] # Eos # Seg Neutrophils % Seg Neuts % (Manual) Lymphocytes % (Manual) Monocytes % (Manual) Eosinophils % (Manual) Seg Neutrophils # Lymphocytes # (Manual) Monocytes # (Manual) POC ABG pH POC ABG pCO2 POC ABG pO2 Sodium 129 L Potassium 5.2 H Chloride 92.0 L Carbon Dioxide BUN 41 H Creatinine 1.5 H Glucose 228 H POC Glucose 236 H 230 H Uric Acid Calcium Total Bilirubin Alkaline Phosphatase CK-MB (CK-2) CK-MB (CK-2) Rel Index Total Protein Albumin Urine WBC (Auto) 01/18/17 01/19/17 01/19/17 16:00 03:46 03:46 WBC RDW 18.9 H Plt Count Lymph % (Auto) [place] % (Auto) Eos % (Auto) Baso % (Auto) Lymph # [place] # Eos # Seg Neutrophils % Seg Neuts % (Manual) Lymphocytes % (Manual) Monocytes % (Manual) Eosinophils % (Manual) Seg Neutrophils # Lymphocytes # (Manual) Monocytes # (Manual) POC ABG pH POC ABG pCO2 POC ABG pO2 Sodium 128 L Potassium Chloride 92.3 L Carbon Dioxide 21 L BUN 40 H Creatinine 1.4 H Glucose 178 H POC Glucose 253 H Uric Acid Calcium Total Bilirubin Alkaline Phosphatase CK-MB (CK-2) CK-MB (CK-2) Rel Index Total Protein Albumin Urine WBC (Auto) 01/19/17 01/19/17 01/19/17 09:21 11:45 13:02 WBC RDW Plt Count Lymph % (Auto) [place] % (Auto) Eos % (Auto) Baso % (Auto) Lymph # [place] # Eos # Seg Neutrophils % Seg Neuts % (Manual) Lymphocytes % (Manual) Monocytes % (Manual) Eosinophils % (Manual) Seg Neutrophils # Lymphocytes # (Manual) Monocytes # (Manual) POC ABG pH POC ABG pCO2 POC ABG pO2 Sodium 131 L Potassium Chloride 92.8 L Carbon Dioxide BUN 39 H Creatinine 1.4 H Glucose 159 H POC Glucose 135 H 125 H Uric Acid Calcium Total Bilirubin Alkaline Phosphatase CK-MB (CK-2) 4.1 H CK-MB (CK-2) Rel Index 4.1 H Total Protein Albumin Urine WBC (Auto) 01/19/17 01/20/17 01/20/17 15:48 04:00 05:45 WBC 11.5 H RDW 18.9 H Plt Count 131 L Lymph % (Auto) [place] % (Auto) Eos % (Auto) Baso % (Auto) Lymph # [place] # Eos # Seg Neutrophils % Seg Neuts % (Manual) Lymphocytes % (Manual) Monocytes % (Manual) Eosinophils % (Manual) Seg Neutrophils # Lymphocytes # (Manual) Monocytes # (Manual) POC ABG pH POC ABG pCO2 POC ABG pO2 189 H Sodium 129 L Potassium Chloride 91.4 L Carbon Dioxide BUN 37 H Creatinine 1.3 H Glucose POC Glucose Uric Acid Calcium Total Bilirubin Alkaline Phosphatase CK-MB (CK-2) CK-MB (CK-2) Rel Index Total Protein Albumin Urine WBC (Auto) 01/20/17 01/20/17 01/21/17 06:09 09:34 00:26 WBC RDW Plt Count Lymph % (Auto) [place] % (Auto) Eos % (Auto) Baso % (Auto) Lymph # [place] # Eos # Seg Neutrophils % Seg Neuts % (Manual) Lymphocytes % (Manual) Monocytes % (Manual) Eosinophils % (Manual) Seg Neutrophils # Lymphocytes # (Manual) Monocytes # (Manual) POC ABG pH POC ABG pCO2 POC ABG pO2 67 L Sodium Potassium Chloride Carbon Dioxide BUN Creatinine Glucose POC Glucose 109 H Uric Acid Calcium Total Bilirubin Alkaline Phosphatase CK-MB (CK-2) CK-MB (CK-2) Rel Index Total Protein Albumin Urine WBC (Auto) 15.0 H 01/21/17 01/21/17 01/21/17 04:23 05:20 05:20 WBC 11.8 H RDW 18.9 H Plt Count 135 L Lymph % (Auto) [place] % (Auto) Eos % (Auto) Baso % (Auto) Lymph # [place] # Eos # Seg Neutrophils % Seg Neuts % (Manual) Lymphocytes % (Manual) Monocytes % (Manual) Eosinophils % (Manual) Seg Neutrophils # Lymphocytes # (Manual) Monocytes # (Manual) POC ABG pH 7.338 L POC ABG pCO2 48.6 H POC ABG pO2 67 L Sodium 134 L Potassium Chloride 95.5 L Carbon Dioxide BUN 38 H Creatinine 1.5 H Glucose 110 H POC Glucose Uric Acid Calcium Total Bilirubin Alkaline Phosphatase CK-MB (CK-2) CK-MB (CK-2) Rel Index Total Protein Albumin Urine WBC (Auto) 01/21/17 01/21/17 01/21/17 05:38 18:20 22:54 WBC RDW Plt Count Lymph % (Auto) [place] % (Auto) Eos % (Auto) Baso % (Auto) Lymph # [place] # Eos # Seg Neutrophils % Seg Neuts % (Manual) Lymphocytes % (Manual) Monocytes % (Manual) Eosinophils % (Manual) Seg Neutrophils # Lymphocytes # (Manual) Monocytes # (Manual) POC ABG pH POC ABG pCO2 POC ABG pO2 Sodium Potassium Chloride Carbon Dioxide BUN Creatinine Glucose POC Glucose 120 H 135 H 163 H Uric Acid Calcium Total Bilirubin Alkaline Phosphatase CK-MB (CK-2) CK-MB (CK-2) Rel Index Total Protein Albumin Urine WBC (Auto) 01/22/17 01/22/17 01/22/17 04:00 04:00 11:27 WBC 11.6 H RDW 18.7 H Plt Count 116 L Lymph % (Auto) 2.9 L [place] % (Auto) 11.1 H Eos % (Auto) Baso % (Auto) Lymph # 0.3 L [place] # 1.3 H Eos # Seg Neutrophils % 84.2 H Seg Neuts % (Manual) Lymphocytes % (Manual) Monocytes % (Manual) Eosinophils % (Manual) Seg Neutrophils # 9.8 H Lymphocytes # (Manual) Monocytes # (Manual) POC ABG pH POC ABG pCO2 POC ABG pO2 Sodium 135 L Potassium Chloride 94.6 L Carbon Dioxide BUN 43 H Creatinine 1.9 H Glucose 148 H POC Glucose 151 H Uric Acid Calcium Total Bilirubin 1.60 H Alkaline Phosphatase CK-MB (CK-2) CK-MB (CK-2) Rel Index Total Protein 5.6 L Albumin 2.8 L Urine WBC (Auto) 01/22/17 01/22/17 01/22/17 11:37 13:00 17:14 WBC RDW Plt Count Lymph % (Auto) [place] % (Auto) Eos % (Auto) Baso % (Auto) Lymph # [place] # Eos # Seg Neutrophils % Seg Neuts % (Manual) Lymphocytes % (Manual) Monocytes % (Manual) Eosinophils % (Manual) Seg Neutrophils # Lymphocytes # (Manual) Monocytes # (Manual) POC ABG pH POC ABG pCO2 45.2 H POC ABG pO2 Sodium Potassium Chloride Carbon Dioxide BUN Creatinine Glucose POC Glucose 178 H Uric Acid 12.0 H Calcium Total Bilirubin Alkaline Phosphatase CK-MB (CK-2) CK-MB (CK-2) Rel Index Total Protein Albumin Urine WBC (Auto) 01/22/17 01/23/17 01/23/17 23:33 04:10 04:10 WBC RDW 19.1 H Plt Count Lymph % (Auto) 3.3 L [place] % (Auto) 11.5 H Eos % (Auto) Baso % (Auto) Lymph # 0.3 L [place] # 1.2 H Eos # Seg Neutrophils % 83.9 H Seg Neuts % (Manual) Lymphocytes % (Manual) Monocytes % (Manual) Eosinophils % (Manual) Seg Neutrophils # 8.4 H Lymphocytes # (Manual) Monocytes # (Manual) POC ABG pH POC ABG pCO2 POC ABG pO2 Sodium 134 L Potassium Chloride 95.1 L Carbon Dioxide BUN 48 H Creatinine 2.0 H Glucose 197 H POC Glucose 202 H Uric Acid Calcium Total Bilirubin Alkaline Phosphatase CK-MB (CK-2) CK-MB (CK-2) Rel Index Total Protein Albumin Urine WBC (Auto) 01/23/17 01/23/17 01/23/17 05:19 12:16 16:51 WBC RDW Plt Count Lymph % (Auto) [place] % (Auto) Eos % (Auto) Baso % (Auto) Lymph # [place] # Eos # Seg Neutrophils % Seg Neuts % (Manual) Lymphocytes % (Manual) Monocytes % (Manual) Eosinophils % (Manual) Seg Neutrophils # Lymphocytes # (Manual) Monocytes # (Manual) POC ABG pH 7.317 L POC ABG pCO2 49.6 H POC ABG pO2 Sodium Potassium Chloride Carbon Dioxide BUN Creatinine Glucose POC Glucose 186 H 146 H Uric Acid Calcium Total Bilirubin Alkaline Phosphatase CK-MB (CK-2) CK-MB (CK-2) Rel Index Total Protein Albumin Urine WBC (Auto) 01/23/17 01/23/17 01/24/17 17:24 23:57 05:12 WBC RDW Plt Count Lymph % (Auto) [place] % (Auto) Eos % (Auto) Baso % (Auto) Lymph # [place] # Eos # Seg Neutrophils % Seg Neuts % (Manual) Lymphocytes % (Manual) Monocytes % (Manual) Eosinophils % (Manual) Seg Neutrophils # Lymphocytes # (Manual) Monocytes # (Manual) POC ABG pH POC ABG pCO2 POC ABG pO2 Sodium Potassium Chloride Carbon Dioxide BUN Creatinine Glucose POC Glucose 176 H 212 H 215 H Uric Acid Calcium Total Bilirubin Alkaline Phosphatase CK-MB (CK-2) CK-MB (CK-2) Rel Index Total Protein Albumin Urine WBC (Auto) 01/24/17 01/24/17 01/24/17 05:44 07:50 12:14 WBC RDW Plt Count Lymph % (Auto) [place] % (Auto) Eos % (Auto) Baso % (Auto) Lymph # [place] # Eos # Seg Neutrophils % Seg Neuts % (Manual) Lymphocytes % (Manual) Monocytes % (Manual) Eosinophils % (Manual) Seg Neutrophils # Lymphocytes # (Manual) Monocytes # (Manual) POC ABG pH POC ABG pCO2 POC ABG pO2 Sodium 136 L D Potassium 2.0 L* D Chloride 120.0 H 97.9 L Carbon Dioxide 15 L D BUN 34 H 54 H Creatinine 1.9 H D Glucose 138 H 205 H POC Glucose 210 H Uric Acid Calcium 4.8 L* D Total Bilirubin Alkaline Phosphatase 33 L CK-MB (CK-2) CK-MB (CK-2) Rel Index Total Protein 3.0 L D Albumin 1.4 L Urine WBC (Auto) 01/24/17 01/24/17 01/24/17 16:54 23:35 Unknown WBC RDW 18.6 H Plt Count 138 L Lymph % (Auto) [place] % (Auto) Eos % (Auto) Baso % (Auto) Lymph # [place] # Eos # Seg Neutrophils % Seg Neuts % (Manual) 71.0 H Lymphocytes % (Manual) 5.0 L Monocytes % (Manual) 18.0 H Eosinophils % (Manual) 5.0 H Seg Neutrophils # Lymphocytes # (Manual) 0.4 L Monocytes # (Manual) 1.3 H POC ABG pH POC ABG pCO2 POC ABG pO2 Sodium Potassium Chloride Carbon Dioxide BUN Creatinine Glucose POC Glucose 227 H 260 H Uric Acid Calcium Total Bilirubin Alkaline Phosphatase CK-MB (CK-2) CK-MB (CK-2) Rel Index Total Protein Albumin Urine WBC (Auto) 01/25/17 01/25/17 01/25/17 05:52 07:54 07:54 WBC RDW 18.9 H Plt Count Lymph % (Auto) [place] % (Auto) Eos % (Auto) Baso % (Auto) Lymph # [place] # Eos # Seg Neutrophils % Seg Neuts % (Manual) Lymphocytes % (Manual) Monocytes % (Manual) Eosinophils % (Manual) Seg Neutrophils # Lymphocytes # (Manual) Monocytes # (Manual) POC ABG pH POC ABG pCO2 POC ABG pO2 Sodium 135 L Potassium Chloride 97.0 L Carbon Dioxide BUN 55 H Creatinine 1.6 H Glucose 235 H POC Glucose 226 H Uric Acid Calcium Total Bilirubin Alkaline Phosphatase CK-MB (CK-2) CK-MB (CK-2) Rel Index Total Protein Albumin Urine WBC (Auto) 01/25/17 01/25/17 01/25/17 11:38 17:15 23:21 WBC RDW Plt Count Lymph % (Auto) [place] % (Auto) Eos % (Auto) Baso % (Auto) Lymph # [place] # Eos # Seg Neutrophils % Seg Neuts % (Manual) Lymphocytes % (Manual) Monocytes % (Manual) Eosinophils % (Manual) Seg Neutrophils # Lymphocytes # (Manual) Monocytes # (Manual) POC ABG pH POC ABG pCO2 POC ABG pO2 Sodium Potassium Chloride Carbon Dioxide BUN Creatinine Glucose POC Glucose 226 H 249 H 245 H Uric Acid Calcium Total Bilirubin Alkaline Phosphatase CK-MB (CK-2) CK-MB (CK-2) Rel Index Total Protein Albumin Urine WBC (Auto) 01/26/17 01/26/17 01/26/17 05:27 12:52 18:16 WBC RDW Plt Count Lymph % (Auto) [place] % (Auto) Eos % (Auto) Baso % (Auto) Lymph # [place] # Eos # Seg Neutrophils % Seg Neuts % (Manual) Lymphocytes % (Manual) Monocytes % (Manual) Eosinophils % (Manual) Seg Neutrophils # Lymphocytes # (Manual) Monocytes # (Manual) POC ABG pH POC ABG pCO2 POC ABG pO2 Sodium Potassium Chloride Carbon Dioxide BUN Creatinine Glucose POC Glucose 244 H 231 H 231 H Uric Acid Calcium Total Bilirubin Alkaline Phosphatase CK-MB (CK-2) CK-MB (CK-2) Rel Index Total Protein Albumin Urine WBC (Auto) 01/26/17 01/26/17 01/27/17 18:18 23:33 04:45 WBC RDW 18.6 H Plt Count Lymph % (Auto) 4.6 L [place] % (Auto) 13.6 H Eos % (Auto) 4.4 H Baso % (Auto) Lymph # 0.4 L [place] # 1.1 H Eos # Seg Neutrophils % 76.5 H Seg Neuts % (Manual) Lymphocytes % (Manual) Monocytes % (Manual) Eosinophils % (Manual) Seg Neutrophils # Lymphocytes # (Manual) Monocytes # (Manual) POC ABG pH POC ABG pCO2 POC ABG pO2 Sodium Potassium Chloride Carbon Dioxide BUN Creatinine Glucose POC Glucose 191 H 202 H Uric Acid Calcium Total Bilirubin Alkaline Phosphatase CK-MB (CK-2) CK-MB (CK-2) Rel Index Total Protein Albumin Urine WBC (Auto) 01/27/17 01/27/17 01/27/17 04:45 05:36 12:24 WBC RDW Plt Count Lymph % (Auto) [place] % (Auto) Eos % (Auto) Baso % (Auto) Lymph # [place] # Eos # Seg Neutrophils % Seg Neuts % (Manual) Lymphocytes % (Manual) Monocytes % (Manual) Eosinophils % (Manual) Seg Neutrophils # Lymphocytes # (Manual) Monocytes # (Manual) POC ABG pH POC ABG pCO2 POC ABG pO2 Sodium Potassium Chloride Carbon Dioxide BUN 54 H Creatinine Glucose 202 H POC Glucose 202 H 219 H Uric Acid Calcium Total Bilirubin Alkaline Phosphatase CK-MB (CK-2) CK-MB (CK-2) Rel Index Total Protein Albumin Urine WBC (Auto) 01/27/17 01/27/17 01/28/17 17:44 23:38 04:00 WBC RDW Plt Count Lymph % (Auto) [place] % (Auto) Eos % (Auto) Baso % (Auto) Lymph # [place] # Eos # Seg Neutrophils % Seg Neuts % (Manual) Lymphocytes % (Manual) Monocytes % (Manual) Eosinophils % (Manual) Seg Neutrophils # Lymphocytes # (Manual) Monocytes # (Manual) POC ABG pH POC ABG pCO2 POC ABG pO2 Sodium Potassium Chloride Carbon Dioxide BUN Creatinine Glucose POC Glucose 237 H 253 H 236 H Uric Acid Calcium Total Bilirubin Alkaline Phosphatase CK-MB (CK-2) CK-MB (CK-2) Rel Index Total Protein Albumin Urine WBC (Auto) 01/28/17 01/28/17 01/28/17 05:00 05:00 12:02 WBC RDW 18.6 H Plt Count Lymph % (Auto) 4.8 L [place] % (Auto) 13.0 H Eos % (Auto) 4.8 H Baso % (Auto) Lymph # 0.4 L [place] # 1.2 H Eos # Seg Neutrophils % 76.3 H Seg Neuts % (Manual) Lymphocytes % (Manual) Monocytes % (Manual) Eosinophils % (Manual) Seg Neutrophils # Lymphocytes # (Manual) Monocytes # (Manual) POC ABG pH POC ABG pCO2 POC ABG pO2 Sodium 136 L Potassium Chloride Carbon Dioxide BUN 56 H Creatinine 1.4 H Glucose 225 H POC Glucose 195 H Uric Acid Calcium Total Bilirubin Alkaline Phosphatase CK-MB (CK-2) CK-MB (CK-2) Rel Index Total Protein Albumin Urine WBC (Auto) 01/28/17 01/28/17 01/29/17 17:57 23:50 04:57 WBC RDW Plt Count Lymph % (Auto) [place] % (Auto) Eos % (Auto) Baso % (Auto) Lymph # [place] # Eos # Seg Neutrophils % Seg Neuts % (Manual) Lymphocytes % (Manual) Monocytes % (Manual) Eosinophils % (Manual) Seg Neutrophils # Lymphocytes # (Manual) Monocytes # (Manual) POC ABG pH POC ABG pCO2 POC ABG pO2 Sodium Potassium Chloride Carbon Dioxide BUN Creatinine Glucose POC Glucose 193 H 181 H 199 H Uric Acid Calcium Total Bilirubin Alkaline Phosphatase CK-MB (CK-2) CK-MB (CK-2) Rel Index Total Protein Albumin Urine WBC (Auto) 01/29/17 01/29/17 01/29/17 05:30 05:30 11:20 WBC RDW 18.6 H Plt Count Lymph % (Auto) 4.3 L [place] % (Auto) 11.9 H Eos % (Auto) 5.0 H Baso % (Auto) Lymph # 0.3 L [place] # 1.0 H Eos # Seg Neutrophils % 78.1 H Seg Neuts % (Manual) Lymphocytes % (Manual) Monocytes % (Manual) Eosinophils % (Manual) Seg Neutrophils # Lymphocytes # (Manual) Monocytes # (Manual) POC ABG pH POC ABG pCO2 POC ABG pO2 Sodium Potassium Chloride 97.9 L Carbon Dioxide BUN 59 H Creatinine 1.6 H Glucose 220 H POC Glucose 215 H Uric Acid Calcium Total Bilirubin Alkaline Phosphatase CK-MB (CK-2) CK-MB (CK-2) Rel Index Total Protein Albumin Urine WBC (Auto) 01/29/17 01/30/17 01/30/17 17:37 04:00 04:00 WBC RDW 18.7 H Plt Count Lymph % (Auto) 6.6 L [place] % (Auto) 12.2 H Eos % (Auto) 4.4 H Baso % (Auto) Lymph # 0.6 L [place] # 1.1 H Eos # Seg Neutrophils % 76.3 H Seg Neuts % (Manual) Lymphocytes % (Manual) Monocytes % (Manual) Eosinophils % (Manual) Seg Neutrophils # Lymphocytes # (Manual) Monocytes # (Manual) POC ABG pH POC ABG pCO2 POC ABG pO2 Sodium 136 L Potassium Chloride 96.8 L Carbon Dioxide BUN 58 H Creatinine 1.9 H Glucose 121 H POC Glucose 147 H Uric Acid Calcium Total Bilirubin Alkaline Phosphatase CK-MB (CK-2) CK-MB (CK-2) Rel Index Total Protein Albumin Urine WBC (Auto) 01/30/17 01/30/17 01/30/17 05:30 12:08 15:54 WBC RDW Plt Count Lymph % (Auto) [place] % (Auto) Eos % (Auto) Baso % (Auto) Lymph # [place] # Eos # Seg Neutrophils % Seg Neuts % (Manual) Lymphocytes % (Manual) Monocytes % (Manual) Eosinophils % (Manual) Seg Neutrophils # Lymphocytes # (Manual) Monocytes # (Manual) POC ABG pH POC ABG pCO2 46.4 H POC ABG pO2 Sodium Potassium Chloride Carbon Dioxide BUN Creatinine Glucose POC Glucose 136 H 175 H Uric Acid Calcium Total Bilirubin Alkaline Phosphatase CK-MB (CK-2) CK-MB (CK-2) Rel Index Total Protein Albumin Urine WBC (Auto) 01/30/17 01/30/17 01/31/17 17:48 23:57 04:30 WBC RDW 18.7 H Plt Count Lymph % (Auto) 5.6 L [place] % (Auto) 9.4 H Eos % (Auto) 4.6 H Baso % (Auto) Lymph # 0.5 L [place] # 0.9 H Eos # Seg Neutrophils % 79.8 H Seg Neuts % (Manual) Lymphocytes % (Manual) Monocytes % (Manual) Eosinophils % (Manual) Seg Neutrophils # 7.8 H Lymphocytes # (Manual) Monocytes # (Manual) POC ABG pH POC ABG pCO2 POC ABG pO2 Sodium Potassium Chloride Carbon Dioxide BUN Creatinine Glucose POC Glucose 201 H 198 H Uric Acid Calcium Total Bilirubin Alkaline Phosphatase CK-MB (CK-2) CK-MB (CK-2) Rel Index Total Protein Albumin Urine WBC (Auto) 01/31/17 01/31/17 01/31/17 04:30 06:15 11:21 WBC RDW Plt Count Lymph % (Auto) [place] % (Auto) Eos % (Auto) Baso % (Auto) Lymph # [place] # Eos # Seg Neutrophils % Seg Neuts % (Manual) Lymphocytes % (Manual) Monocytes % (Manual) Eosinophils % (Manual) Seg Neutrophils # Lymphocytes # (Manual) Monocytes # (Manual) POC ABG pH POC ABG pCO2 POC ABG pO2 Sodium 132 L Potassium Chloride 93.2 L Carbon Dioxide BUN 61 H Creatinine 1.9 H Glucose 300 H POC Glucose 167 H 118 H Uric Acid Calcium Total Bilirubin Alkaline Phosphatase CK-MB (CK-2) CK-MB (CK-2) Rel Index Total Protein Albumin Urine WBC (Auto) 01/31/17 01/31/17 02/01/17 17:39 23:40 05:52 WBC RDW Plt Count Lymph % (Auto) [place] % (Auto) Eos % (Auto) Baso % (Auto) Lymph # [place] # Eos # Seg Neutrophils % Seg Neuts % (Manual) Lymphocytes % (Manual) Monocytes % (Manual) Eosinophils % (Manual) Seg Neutrophils # Lymphocytes # (Manual) Monocytes # (Manual) POC ABG pH POC ABG pCO2 POC ABG pO2 Sodium Potassium Chloride Carbon Dioxide BUN Creatinine Glucose POC Glucose 138 H 155 H 152 H Uric Acid Calcium Total Bilirubin Alkaline Phosphatase CK-MB (CK-2) CK-MB (CK-2) Rel Index Total Protein Albumin Urine WBC (Auto) 02/01/17 02/01/17 02/01/17 11:57 12:50 12:50 WBC RDW 18.6 H Plt Count Lymph % (Auto) 3.6 L [place] % (Auto) 9.5 H Eos % (Auto) 5.2 H Baso % (Auto) Lymph # 0.3 L [place] # 0.9 H Eos # 0.5 H Seg Neutrophils % 81.2 H Seg Neuts % (Manual) Lymphocytes % (Manual) Monocytes % (Manual) Eosinophils % (Manual) Seg Neutrophils # 7.8 H Lymphocytes # (Manual) Monocytes # (Manual) POC ABG pH POC ABG pCO2 POC ABG pO2 Sodium Potassium Chloride Carbon Dioxide BUN 70 H Creatinine 1.9 H Glucose 175 H POC Glucose 154 H Uric Acid Calcium Total Bilirubin Alkaline Phosphatase CK-MB (CK-2) CK-MB (CK-2) Rel Index Total Protein Albumin Urine WBC (Auto) 02/01/17 02/01/17 02/02/17 16:53 23:53 04:46 WBC RDW Plt Count Lymph % (Auto) [place] % (Auto) Eos % (Auto) Baso % (Auto) Lymph # [place] # Eos # Seg Neutrophils % Seg Neuts % (Manual) Lymphocytes % (Manual) Monocytes % (Manual) Eosinophils % (Manual) Seg Neutrophils # Lymphocytes # (Manual) Monocytes # (Manual) POC ABG pH POC ABG pCO2 POC ABG pO2 Sodium Potassium Chloride Carbon Dioxide BUN Creatinine Glucose POC Glucose 152 H 139 H 109 H Uric Acid Calcium Total Bilirubin Alkaline Phosphatase CK-MB (CK-2) CK-MB (CK-2) Rel Index Total Protein Albumin Urine WBC (Auto) 02/02/17 02/02/17 Unknown Unknown WBC RDW 18.9 H Plt Count Lymph % (Auto) 4.1 L Fountain % (Auto) 9.5 H Eos % (Auto) 6.7 H Baso % (Auto) Lymph # 0.4 L Fountain # Eos # 0.6 H Seg Neutrophils % 78.8 H Seg Neuts % (Manual) Lymphocytes % (Manual) Monocytes % (Manual) Eosinophils % (Manual) Seg Neutrophils # Lymphocytes # (Manual) Monocytes # (Manual) POC ABG pH POC ABG pCO2 POC ABG pO2 Sodium Potassium Chloride Carbon Dioxide BUN 66 H Creatinine 1.7 H Glucose 117 H POC Glucose Uric Acid Calcium Total Bilirubin Alkaline Phosphatase CK-MB (CK-2) CK-MB (CK-2) Rel Index Total Protein Albumin Urine WBC (Auto)
[2017-02-02] MEDS ORDERED: LOPRESSOR PO SCH (14:00)
--- NOTE | 2017-02-02 15:57 | Discharge Summary ---
Providers - Providers Date of Admission: 01/15/17 11:28 Attending physician: LAURA CLINE MD 01/15/17 Consult to Cardiac Rehabilitation [CONS] Routine Reason For Exam: Phase I 01/15/17 11:58 Consult to Physician [CONS] Routine Consulting Provider: BLESSING CARROLL Reason For Exam: CHF EXACERBATION Place consult to:: CARDIOLOGY Notified:: Y If yes, spoke with:: I SPOKE TO DR MOYA Time called:: 10:40 01/18/17 13:35 Consult to Physician [CONS] Routine Consulting Provider: ASHISH AVILA Reason For Exam: Critical care admission for CHF Place consult to:: Dr. Avila Notified:: Yes Was contact made?: Yes Comment:: Contact made by Nader Sherman 01/18/17 13:41 Consult to Physician [CONS] Routine Consulting Provider: GLENNA OCAMPO Reason For Exam: ARF, cardiology plans for Cath? Place consult to:: Terrence BENNETT Notified:: Dr Ocapmo's office Phone number called:: [phone] Was contact made?: Yes If yes, spoke with:: Latasha Markham called:: 10:44 01/19/17 12:26 Consult to Dietitian/Nutrition [CONS] Routine Physician Instructions: Reason For Exam: Reason for Consult: Evaluate nutritional intake 01/19/17 12:52 PICC Line Insertion [Consult to PICC Line RN] [CONS] Urgent Reason For Exam: Morbidly obese, intubated Type Line:: PICC 01/21/17 10:29 Consult to Dietitian/Nutrition [CONS] Routine Physician Instructions: Reason For Exam: Reason for Consult: Write/Manage Tube Feeding 01/27/17 12:35 Speech Therapy Evaluation and Treat [CONS] Routine Reason For Exam: eval. swallowing 01/31/17 09:02 Consult to Wound/ET Nurse [CONS] Urgent Reason For Exam: Wound eval: Bruising on and around nose. 02/02/17 09:19 Physical Therapy Evaluation and Treat [CONS] Routine Comment: Reason For Exam: deconditioning 02/02/17 09:33 Consult to Wound/ET Nurse [CONS] Routine Reason For Exam: wound eval, wound on nose Primary care physician: MYLES SALAS Hospitalization Reason for admission: acute on chronic CHF exacerbation, acute hypoxic respiratory failure Condition: Fair Hospital course: Admission H/P This is a 71-year-old female with multiple medical problems including morbid obesity, the patient is wheelchair-bound secondary to orthopedic issues, hypertension, congestive heart failure, nonobstructive coronary artery disease, and hyperlipidemia who presented to [facility] emergency department complaining of shortness of breath and a rapid heartbeat. In the emergency department a 12-lead EKG appeared to be a accelerated junctional rhythm with a heart rate of 128 bpm. Of note the patient had recently had her metoprolol discontinued secondary to an allergic reaction. In the emergency department the patient was noted to have a potassium of 5.1 blood glucose of 166 and a total bilirubin of 1.4. A chest x-ray was consistent with pulmonary vascular congestion secondary to congestive heart failure. She had a proBNP of 8400. She was admitted and manage for acute on chronic CHF exacerbation, acute hypoxic respiratory failure and pther chronic issues. S/p PEA cardiorespiratory arrest 01/19. cardiology in put appreciated Acute on chronic biventricular systolic heart failure continue to direse her Aspiration PNA: treated with antibiotics Acute hypoxic respiratory failure, patient was managed with high flow O2 , BIPAP will be continued Acute renal failure. Renal function appears to be stable. Patient was discharged to LTAC to continue her chronic management. Disposition: [id number]/[id number] MEDICARE CERT LTCH - Discharge Diagnoses (1) PEA (Pulseless electrical activity) Status: Resolved (2) Acute exacerbation of CHF (congestive heart failure) Status: Acute Qualifiers: Congestive heart failure type: C (3) Aspiration pneumonia Status: Acute Qualifiers: Aspiration pneumonia type: A Laterality: L Lung location: L (4) Asthma exacerbation Status: Acute (5) Acute and chronic respiratory failure Status: Chronic Qualifiers: Respiratory failure complication: R (6) Junctional cardiac arrhythmia Status: Resolved Core Measure Documentation - Palliative Care Palliative Care/ Comfort Measures: Not Applicable - Core Measures Any of the following diagnoses?: heart failure - Heart Failure Discharge Requirements PRISCILLA/ARB for LVSD if EF <40%: No Reason for no PRISCILLA/ARB: Renal impairment Beta steven at discharge: Yes Exam - Physical Exam Narrative exam: Not in cardiopulmonary distress. The patient appeared well nourished and normally developed. Vital signs as documented. Head exam is unremarkable. No scleral icterus . Neck is without jugular venous distension, thyromegaly, or carotid bruits. Lungs are clear to auscultation. Cardiac exam reveals regular rate and Rhythm. Abdominal exam reveals normal bowel sounds, no masses. Extremities are nonedematous and both femoral and pedal pulses are normal. CERTIFIED RESPIRATORY THERAPIST: Alert and oriented 3. No focal weakness. - Constitutional Vitals: Temp Pulse Resp BP Pulse Ox 97.7 F 65 15 125/78 97 02/02/17 12:00 02/02/17 14:17 02/02/17 14:00 02/02/17 14:17 02/02/17 14:00 Plan Activity: advance as tolerated Weight Bearing Status: Weight Bear as Tolerated Diet: low fat, low salt Follow up with: PRIMARY CARE, [Referring] - 3-5 Days
[2017-02-02 16:18] VITALS: BP 121/84
--- NOTE | 2017-02-07 11:37 | Query- Present on Admission ---
Elaine Koenig Date:___02/07/2017 Receiving Teller/CDS:__DewayneLubna Phone#:___[phone] Exercise your independent professional judgment when responding to this query. Questions asked do not imply a particular answer is desired or expected. We greatly appreciate your clarification on this issue. Clinical Documentation States: 71 Year old male was admitted on 01/15/2017. The Hospitalist Progress note on 01/18/2017 "Patient is 71 yo woman who lives alone but has partial functional quadriplegia/wheelchair bound (mostly uses a walker to the bathroom) with a h/o chronic hypoxic respiratory failure on 2 L oxygen at home, morbid obesity bmi 52.1, CHF, nonobstructive coronary artery disease and dyslipidemia who presented to [facility] emergency room on 01/15/2017 with complaints of shortness of breath and rapid heartbeat." The Infectious Disease progress note on 01/21/2017 states "Assessment and Plan - Patient Problems (1) Aspiration pneumonia Current Visit: Yes Status: Acute Qualifiers: Aspiration pneumonia type: A Laterality: L Lung location: L Plan to address problem: Continue current antibiotics." Clinical Findings Show: CXR on 01/20/2017: "Cardiomegaly is unchanged with mild increase in vascular congestion. Blunting of the right costophrenic angle is present." Based on the above clinical scenario and your knowledge of the patient's case please clarify if the diagnosis stated below was present on admission: Diagnosis: ____Aspiration PNA Present on admission : [ x] Yes (Y) [ ] Clinically undeterminable(W) [ ] No(N) Please also document response in your Progress Notes and/or Discharge Summary and indicate if the condition was present on admission. KANA
--- NOTE | 2017-02-07 12:28 | Query- Present on Admission ---
Elaine Worley___Sandeep Date:__02/07/2017 Sausage Maker/CDS:___Dewaynefelipe/Alva Phone#:___[phone] Exercise your independent professional judgment when responding to this query. Questions asked do not imply a particular answer is desired or expected. We greatly appreciate your clarification on this issue. Clinical Documentation States: 71 Year old male was admitted on 01/15/2017. The Hospitalist Progress note on 01/18/2017 "Patient is 71 yo woman who lives alone but has partial functional quadriplegia/wheelchair bound (mostly uses a walker to the bathroom) with a h/o chronic hypoxic respiratory failure on 2 L oxygen at home, morbid obesity bmi 52.1, CHF, nonobstructive coronary artery disease and dyslipidemia who presented to [facility] emergency room on 01/15/2017 with complaints of shortness of breath and rapid heartbeat." The Pulmonology Progress note on 01/21/2017 states "Acute respiratory failure, hypoxia" Clinical Findings Show: CXR on 01/21/2017 "Focal Fluid or atelectasis in the left upper lobe." Based on the above clinical scenario and your knowledge of the patient's case please clarify if the diagnosis stated below was present on admission: Diagnosis: __Acute respiratory failure, hypoxia Present on admission : [x ] Yes (Y) [ ] Clinically undeterminable(W) [ ] No(N) Please also document response in your Progress Notes and/or Discharge Summary and indicate if the condition was present on admission. KANA
--- NOTE | 2017-02-07 12:46 | Query- Present on Admission ---
Elaine Worley___Sandeep Date:___02/07/2017 Stripping And Booking Machine Operator/CDS:___Nell/Alva Phone#:__[phone] Exercise your independent professional judgment when responding to this query. Questions asked do not imply a particular answer is desired or expected. We greatly appreciate your clarification on this issue. Clinical Documentation States: 71 Year old male was admitted on 01/15/2017. The Hospitalist Progress note on 01/18/2017 "Patient is 71 yo woman who lives alone but has partial functional quadriplegia/wheelchair bound (mostly uses a walker to the bathroom) with a h/o chronic hypoxic respiratory failure on 2 L oxygen at home, morbid obesity bmi 52.1, CHF, nonobstructive coronary artery disease and dyslipidemia who presented to [facility] emergency room on 01/15/2017 with complaints of shortness of breath and rapid heartbeat." The Nephrology Progress note on 02/02/2017 states "Assessment and Plan Impression: * NSTEMI." Based on the above clinical scenario and your knowledge of the patient's case please clarify if the diagnosis stated below was present on admission: Diagnosis: ___NSTEMI Present on admission : [ ] Yes (Y) [ x] Clinically undeterminable(W) [ ] No(N) Please also document response in your Progress Notes and/or Discharge Summary and indicate if the condition was present on admission. KANA
--- NOTE | 2017-02-07 12:59 | Query- Present on Admission ---
Elaine Worley___Sandeep Date:__02/07/2017 Medical Lab Scientist/CDS:___Dewaynefelipe/Alva Phone#:___[phone] Exercise your independent professional judgment when responding to this query. Questions asked do not imply a particular answer is desired or expected. We greatly appreciate your clarification on this issue. Clinical Documentation States: 71 Year old male was admitted on 01/15/2017. The Hospitalist Progress note on 01/18/2017 "Patient is 71 yo woman who lives alone but has partial functional quadriplegia/wheelchair bound (mostly uses a walker to the bathroom) with a h/o chronic hypoxic respiratory failure on 2 L oxygen at home, morbid obesity bmi 52.1, CHF, nonobstructive coronary artery disease and dyslipidemia who presented to [facility] emergency room on 01/15/2017 with complaints of shortness of breath and rapid heartbeat." The Hospitalist Progress note on 01/22/2017 states "Sepsis pneumonia, pneumonia may have been poa, unable to say for sure with the chf/pulmonary vascular congestion on admission: continue to monitor and treat with abx." Based on the above clinical scenario and your knowledge of the patient's case please clarify if the diagnosis stated below was present on admission: Diagnosis: Sepsis Present on admission : [x ] Yes (Y) [ ] Clinically undeterminable(W) [ ] No(N) Please also document response in your Progress Notes and/or Discharge Summary and indicate if the condition was present on admission. KANA
== END 2017-02-02 17:30 | DRG 871 ==
LOC: ED 08:05 → 4A 11:28 → CC1 01-18 15:31
PROVIDERS: ADMIT Internal Medicine; ATTEND Internal Medicine
PROC: 5A1945Z Respiratory Ventilation, 24-96 Consecutive Hours (ICD-10-PCS; principal; 2017-01-19)
PROC: 4A033R1 Measurement of Arterial Saturation, Peripheral, Percutaneous Approach (ICD-10-PCS; 2017-01-19)
PROC: 0BH17EZ Insertion of Endotracheal Airway into Trachea, Via Natural or Artificial Opening (ICD-10-PCS; 2017-01-19)
PROC: 5A09557 Assistance with Respiratory Ventilation, Greater than 96 Consecutive Hours, Continuous Positive Airway Pressure (ICD-10-PCS; 2017-01-19)
PROC: 02HV33Z Insertion of Infusion Device into Superior Vena Cava, Percutaneous Approach (ICD-10-PCS; 2017-01-19)
DX: A41.9 Sepsis, unspecified organism (principal); I21.4 Non-ST elevation (NSTEMI) myocardial infarction; R53.2 Functional quadriplegia; N17.0 Acute kidney failure with tubular necrosis; J96.21 Acute and chronic respiratory failure with hypoxia; I46.9 Cardiac arrest, cause unspecified; J69.0 Pneumonitis due to inhalation of food and vomit; I50.23 Acute on chronic systolic (congestive) heart failure; G93.41 Metabolic encephalopathy; E87.1 Hypo-osmolality and hyponatremia; I13.0 Hypertensive heart and chronic kidney disease with heart failure and stage 1 through stage 4 chronic kidney disease, or unspecified chronic kidney disease; I42.0 Dilated cardiomyopathy; I47.1 Supraventricular tachycardia; N39.0 Urinary tract infection, site not specified; Z68.43 Body mass index [BMI] 50.0-59.9, adult; I49.8 Other specified cardiac arrhythmias; M19.90 Unspecified osteoarthritis, unspecified site; K21.9 Gastro-esophageal reflux disease without esophagitis; E66.01 Morbid (severe) obesity due to excess calories; I25.10 Atherosclerotic heart disease of native coronary artery without angina pectoris; E78.5 Hyperlipidemia, unspecified; E87.5 Hyperkalemia; E11.65 Type 2 diabetes mellitus with hyperglycemia; N18.9 Chronic kidney disease, unspecified; E87.6 Hypokalemia; Z86.718 Personal history of other venous thrombosis and embolism; Z83.3 Family history of diabetes mellitus; Z79.899 Other long term (current) drug therapy; Z88.0 Allergy status to penicillin; Z79.82 Long term (current) use of aspirin; Z85.3 Personal history of malignant neoplasm of breast; Z99.3 Dependence on wheelchair; Z82.49 Family history of ischemic heart disease and other diseases of the circulatory system; Z86.711 Personal history of pulmonary embolism
CPT/HCPCS: 36415; 36600; 71010; 74000; 80048; 80053; 80202; 81001; 82550; 82553; 82803; 82962; 83735; 83880; 83930; 84484; 84550; 85007; 85025; 85027; 87040; 87070; 87076; 87086; 87186; 87205; 93005; 93010; 93306; 94002; 94003; 94660; 94760; 96374; G8996-GN; G8997-GN; J0171; J0282; J1170; J1250; J1450; J1644; J1815; J1818; J1940; J1956; J2260; J2704; J2765; J3010; J3370; J3475; J7030; J7040; J7060

== ENCOUNTER 2017-04-08 21:38 | Inpatient (IN) | payer MEDICARE ==
[2017-04-08 22:55] LABS: Basophils % (Auto) 1.3 % (0.0-1.8); Eosinophils % (Auto) 5.7 % (0.0-4.3); Hematocrit 34.3 % (30.3-42.9); Hemoglobin 11.2 gm/dl (10.1-14.3); Mean Corpuscular HGB Conc 33 % (30-34); Mean Corpuscular Hemoglobin 28 pg (28-32); Mean Corpuscular Volume 86 fl (79-97); Platelet Count 188 K/mm3 (140-440); Red Blood Count 4.01 M/mm3 (3.65-5.03); Red Cell Distribution Width 17.6 % (13.2-15.2); White Blood Count 6.3 K/mm3 (4.5-11.0)
--- NOTE | 2017-04-08 23:14 | Emergency Department Report ---
ED General Adult HPI - General Chief complaint: Dyspnea/Respdistress Stated complaint: IBETH Time Seen by Provider: 04/08/17 22:31 Source: patient, EMS Mode of arrival: Stretcher Limitations: No Limitations - History of Present Illness Initial comments: Patient is a 71-year-old female past history of heart failure who presents with shortness of breath has been going on for last couple days. Patient states that her shortness of breath is gone a lot worse at Spring evening a lot more difficult for her to breathe. Patient states her shortness of breath is worse with exertion nothing makes it better. Patient states that her legs are swollen to her and she also states that when she gets like this she use any systemic hospital. Patient's initial sat is 97% on 6 L of O2. This is her baseline. She had 80 mg of Lasix by mouth today without relief. - Related Data Home Medications Medication Instructions Recorded Confirmed Last Taken Furosemide [Lasix TAB] 80 mg PO QDAY 01/15/17 04/08/17 04/08/17 Amiodarone [Cordarone 200 MG TAB] 200 mg PO BID 04/08/17 04/08/17 Unknown AtorvaSTATin [Lipitor] 10 mg PO QHS 04/08/17 04/08/17 Unknown Donepezil [Aricept] 5 mg PO QHS 04/08/17 04/08/17 Unknown Eszopiclone [Lunesta] 3 mg PO QHS PRN 04/08/17 04/08/17 Unknown Furosemide [Lasix] 20 mg PO QHS 04/08/17 04/08/17 Unknown Metoprolol [Lopressor TAB] 50 mg PO BID 04/08/17 04/08/17 Unknown Pantoprazole [Protonix] 40 mg PO QDAY 04/08/17 04/08/17 Unknown Allergies Allergy/AdvReac Type Severity Reaction Status Date / Time latex Allergy Rash Verified 01/24/17 08:38 morphine Allergy Unknown Verified 04/08/17 21:57 Penicillins Allergy Swelling Verified 01/22/16 12:36 lotions Allergy Unknown Uncoded 04/08/17 21:57 ED Review of Systems ROS: Stated complaint: IBETH Other details as noted in HPI Constitutional: denies: chills, fever Eyes: denies: eye pain, eye discharge, vision change ENT: denies: ear pain, throat pain Respiratory: SOB with exertion, SOB at rest. denies: cough, shortness of breath , wheezing Cardiovascular: edema. denies: chest pain, palpitations Endocrine: no symptoms reported Gastrointestinal: denies: abdominal pain, nausea, diarrhea Genitourinary: denies: urgency, dysuria, discharge Musculoskeletal: denies: back pain, joint swelling, arthralgia Skin: denies: rash, lesions Neurological: denies: headache, weakness, paresthesias Psychiatric: denies: anxiety, depression Hematological/Lymphatic: denies: easy bleeding, easy bruising ED Past Medical Hx - Past Medical History Hx Hypertension: Yes Hx Congestive Heart Failure: Yes Hx Diabetes: Yes Hx Deep Vein Thrombosis: No Hx Pulmonary Embolism: Yes Hx GERD: Yes Hx of Cancer: Yes (Breast) Hx Arthritis: Yes Hx Asthma: Yes Additional medical history: ABISAI, hx DVT lower ext, cardiomyopathy, CKD, CAD - Surgical History Hx Pacemaker: No Hx Internal Defibrillator: No Additional Surgical History: right masectomy, PEG tube (no longer used) - Social History Smoking Status: Never Smoker Substance Use Type: None - Medications Home Medications: Home Medications Medication Instructions Recorded Confirmed Last Taken Type Furosemide [Lasix TAB] 80 mg PO QDAY 01/15/17 04/08/17 04/08/17 History Amiodarone [Cordarone 200 MG TAB] 200 mg PO BID 04/08/17 04/08/17 Unknown History AtorvaSTATin [Lipitor] 10 mg PO QHS 04/08/17 04/08/17 Unknown History Donepezil [Aricept] 5 mg PO QHS 04/08/17 04/08/17 Unknown History Eszopiclone [Lunesta] 3 mg PO QHS PRN 04/08/17 04/08/17 Unknown History Furosemide [Lasix] 20 mg PO QHS 04/08/17 04/08/17 Unknown History Metoprolol [Lopressor TAB] 50 mg PO BID 04/08/17 04/08/17 Unknown History Pantoprazole [Protonix] 40 mg PO QDAY 04/08/17 04/08/17 Unknown History ED Physical Exam - General Limitations: No Limitations General appearance: alert, in no apparent distress - Head Head exam: Present: atraumatic, normocephalic - Eye Eye exam: Present: normal appearance - ENT ENT exam: Present: mucous membranes moist - Neck Neck exam: Present: normal inspection - Respiratory Respiratory exam: Present: other (crackles bilateraly ). Absent: respiratory distress - Cardiovascular Cardiovascular Exam: Present: regular rate, normal rhythm, S3. Absent: systolic murmur, diastolic murmur, rubs, gallop - GI/Abdominal GI/Abdominal exam: Present: soft, normal bowel sounds - Extremities Exam Extremities exam: Present: pedal edema (+1) - Back Exam Back exam: Present: normal inspection - Neurological Exam Neurological exam: Present: alert, oriented X3 - Psychiatric Psychiatric exam: Present: normal affect, normal mood - Skin Skin exam: Present: warm, dry, intact, normal color. Absent: rash ED Course Vital Signs 04/08/17 04/08/17 04/08/17 21:57 23:00 23:25 Temperature 98.0 F 98.3 F Pulse Rate 68 57 L Respiratory 16 Rate Blood Pressure 144/82 Blood Pressure 117/65 [Left] O2 Sat by Pulse 97 96 Oximetry 04/09/17 03:15 Temperature 97.5 F L Pulse Rate 94 H Respiratory 16 Rate Blood Pressure Blood Pressure 109/67 [Left] O2 Sat by Pulse 100 Oximetry ED Medical Decision Making - Lab Data Result diagrams: 04/08/17 22:38 04/08/17 22:38 Lab Results 04/08/17 04/08/17 04/08/17 Range/Units 22:38 22:38 22:38 WBC 6.3 (4.5-11.0) K/mm3 RBC 4.01 (3.65-5.03) M/mm3 Hgb 11.2 (10.1-14.3) gm/dl Hct 34.3 (30.3-42.9) % MCV 86 (79-97) fl MCH 28 (28-32) pg MCHC 33 (30-34) % RDW 17.6 H (13.2-15.2) % Plt Count 188 (140-440) K/mm3 Lymph % (Auto) 6.0 L (13.4-35.0) % Nolan % (Auto) 12.0 H (0.0-7.3) % Eos % (Auto) 5.7 H (0.0-4.3) % Baso % (Auto) 1.3 (0.0-1.8) % Lymph # 0.4 L (1.2-5.4) K/mm3 Nolan # 0.8 (0.0-0.8) K/mm3 Eos # 0.4 (0.0-0.4) K/mm3 Baso # 0.1 (0.0-0.1) K/mm3 Seg Neutrophils % 75.0 H (40.0-70.0) % Seg Neutrophils # 4.7 (1.8-7.7) K/mm3 D-Dimer (0-234) ng/mlDDU Sodium 135 L (137-145) mmol/L Potassium 4.5 (3.6-5.0) mmol/L Chloride 93.7 L (98-107) mmol/L Carbon Dioxide 27 (22-30) mmol/L Anion Gap 19 mmol/L BUN 25 H (7-17) mg/dL Creatinine 1.4 H (0.7-1.2) mg/dL Estimated GFR 45 ml/min BUN/Creatinine Ratio 18 % Glucose 201 H (65-100) mg/dL Calcium 9.2 (8.4-10.2) mg/dL Total Creatine Kinase (30-135) units/L CK-MB (CK-2) (0.0-4.0) ng/mL CK-MB (CK-2) Rel Index (0-4) Troponin T 0.018 (0.00-0.029) ng/mL NT-Pro-B Natriuret Pep 09263 H (0-900) pg/mL 04/08/17 04/09/17 Range/Units 22:38 05:15 WBC (4.5-11.0) K/mm3 RBC (3.65-5.03) M/mm3 Hgb (10.1-14.3) gm/dl Hct (30.3-42.9) % MCV (79-97) fl MCH (28-32) pg MCHC (30-34) % RDW (13.2-15.2) % Plt Count (140-440) K/mm3 Lymph % (Auto) (13.4-35.0) % Nolan % (Auto) (0.0-7.3) % Eos % (Auto) (0.0-4.3) % Baso % (Auto) (0.0-1.8) % Lymph # (1.2-5.4) K/mm3 Nolan # (0.0-0.8) K/mm3 Eos # (0.0-0.4) K/mm3 Baso # (0.0-0.1) K/mm3 Seg Neutrophils % (40.0-70.0) % Seg Neutrophils # (1.8-7.7) K/mm3 D-Dimer 895.67 H (0-234) ng/mlDDU Sodium (137-145) mmol/L Potassium (3.6-5.0) mmol/L Chloride (98-107) mmol/L Carbon Dioxide (22-30) mmol/L Anion Gap mmol/L BUN (7-17) mg/dL Creatinine (0.7-1.2) mg/dL Estimated GFR ml/min BUN/Creatinine Ratio % Glucose (65-100) mg/dL Calcium (8.4-10.2) mg/dL Total Creatine Kinase 34 (30-135) units/L CK-MB (CK-2) 1.8 (0.0-4.0) ng/mL CK-MB (CK-2) Rel Index 5.2 H (0-4) Troponin T 0.014 (0.00-0.029) ng/mL NT-Pro-B Natriuret Pep (0-900) pg/mL - EKG Data -: EKG Interpreted by Me - EKG Data 04/09/17 05:53 EKG shows prolonged W[place] interval prolonged QT - Radiology Data Radiology results: report reviewed, image reviewed CT angiogram chest: Shows rib fractures 4 through 7 cardiomegaly, large pericardial effusion. No pulmonary embolism - Medical Decision Making Chief Medical diagnosis: congestive heart failure differential medical diagnosis: Non-STEMI, pulmonary embolism, pulmonary edema, pneumonia I will get CBC, CMP, BMP, chest x-ray, IV Lasix, IV magnesium and IV pain medication Patient has prolonged QT on EKG I'll give patient magnesium and I will refrain from giving patient any antiemetics that can Prolonged the QT interval. She denies having any chest pain and has no point tenderness on her chest. Rib fractures are likely old in nature. Discussed plan for patient to admit she agrees with plan. Critical care attestation.: If time is entered above; I have spent that time in minutes in the direct care of this critically ill patient, excluding procedure time. ED Disposition Clinical Impression: Prolonged Q-T interval on ECG, SOB (shortness of breath) Acute exacerbation of CHF (congestive heart failure) Qualifiers: Congestive heart failure type: unspecified congestive heart failure type Qualified Code(s): I50.9 - Heart failure, unspecified Disposition: OP ADMIT IP TO THIS HOSP Is pt being admited?: Yes Does the pt Need Aspirin: No Condition: Stable Referrals: PRIMARY CARE, [Primary Care Provider] - 3-5 Days
[2017-04-08 23:16] LABS: Calcium 9.2 mg/dL (8.4-10.2); Chloride 93.7 mmol/L (98-107); Potassium 4.5 mmol/L (3.6-5.0)
[2017-04-08] MEDS ORDERED: LASIX IV ONE (23:29)
--- NOTE | 2017-04-09 03:24 | Cat Scan Report ---
FINAL REPORT PROCEDURE: CT ANGIO CHEST TECHNIQUE: Computerized axial tomographic angiography of the chest and pulmonary arteries was performed after the IV injection of iodinated nonionic contrast. The image data was postprocessed using maximum intensity projection (MIP) and 2-dimensional multiplanar reformatted (MPR) techniques. The examination is specifically tailored to the evaluation of the pulmonary arteries per clinical request. HISTORY: Short of breath 786.09, chest pain 786.50, sob and chest pain elevated d-dimer COMPARISON: No prior studies are available for comparison. FINDINGS: Heart and pericardium: Heart is enlarged. There is a large pericardial effusion.. Thoracic aorta: There is calcified plaque in the thoracic aorta. There is no aneurysm.. Pulmonary vasculature: There is no pulmonary embolism.. Lymph nodes: No enlarged thoracic lymph nodes. Lungs: There is suboptimal inspiration. There is atelectasis at the lung bases. There is mild pulmonary edema.. Pleural space: There are large bilateral pleural effusions. There is no pneumothorax.. Musculoskeletal structures: There are fractures of right ribs numbers 4 through 7.. Upper abdominal structures: No significant abnormality. IMPRESSION: Heart is enlarged. There is a large pericardial effusion.. There is calcified plaque in the thoracic aorta. There is no aneurysm.. There is no pulmonary embolism.. There is suboptimal inspiration. There is atelectasis at the lung bases. There is mild pulmonary edema.. There are large bilateral pleural effusions. There is no pneumothorax.. There are fractures of right ribs numbers 4 through 7.. .
[2017-04-09] MEDS ORDERED: PROVENTIL IH ONE (03:27)
[2017-04-09] MEDS ORDERED: NON-FORMULARY (Eszopiclone [Lunesta] 3 MG) PO PRN (05:08)
[2017-04-09] MEDS ORDERED: DULCOLAX PR PRN (05:10)
[2017-04-09] MEDS ORDERED: MILK OF MAGNESIA PO PRN (05:10)
--- NOTE | 2017-04-09 05:13 | History and Physical Report ---
History of Present Illness Date of examination: 04/09/17 History of present illness: 71-year-old woman with a history of hypertension, diabetes, CHF, breast cancer comes emergency room with complaints of shortness of breath 3 week. She admits to PND, orthopnea increasing lower extremity edema. Patient is currently at rehabilitation Review Of Systems: Constitutional: no weight loss Ears, eyes, nose, mouth and throat: no nasal congestion, no nasal discharge, no sinus pressure, blurry vision, diplopia Neck: No neck pain or rigidity. Cardiovascular: chest pain, orthopnea, palpitations Respiratory: No cough Gastrointestinal: abdominal pain, hematochezia Genitourinary : no dysuria, frequency , hematuria Musculoskeletal: no muscle ache Integumentary: no rash, no pruritis Neurological: no parathesias, focal weakness Endocrine: no cold or heat intolerance, no polyuria or polydipsia Hematologic/Lymphatic: no easy bruising, no easy bleeding, no gland swelling Allergic/Immunologic: no urticaria, no angioedema. PAST SURGICAL HISTORY: Right mastectomy SOCIAL HISTORY: Denies alcohol, tobacco, drugs FAMILY HISTORY: Hypertension Medications and Allergies Allergies Allergy/AdvReac Type Severity Reaction Status Date / Time latex Allergy Rash Verified 01/24/17 08:38 morphine Allergy Unknown Verified 04/08/17 21:57 Penicillins Allergy Swelling Verified 01/22/16 12:36 lotions Allergy Unknown Uncoded 04/08/17 21:57 Home Medications Medication Instructions Recorded Confirmed Last Taken Type Furosemide [Lasix TAB] 80 mg PO QDAY 01/15/17 04/08/17 04/08/17 History Amiodarone [Cordarone 200 MG TAB] 200 mg PO BID 04/08/17 04/08/17 Unknown History AtorvaSTATin [Lipitor] 10 mg PO QHS 04/08/17 04/08/17 Unknown History Donepezil [Aricept] 5 mg PO QHS 04/08/17 04/08/17 Unknown History Eszopiclone [Lunesta] 3 mg PO QHS PRN 04/08/17 04/08/17 Unknown History Furosemide [Lasix] 20 mg PO QHS 04/08/17 04/08/17 Unknown History Metoprolol [Lopressor TAB] 50 mg PO BID 04/08/17 04/08/17 Unknown History Pantoprazole [Protonix] 40 mg PO QDAY 04/08/17 04/08/17 Unknown History Active Meds: Active Medications Amiodarone HCl (Cordarone) 200 mg PO BID [facility] Atorvastatin Calcium (Lipitor) 10 mg PO QHS [facility] Donepezil HCl (Aricept) 5 mg PO QHS [facility] Metoprolol Tartrate (Lopressor) 50 mg PO BID [facility] Miscellaneous Medication (Eszopiclone [Lunesta]) 3 mg PO QHS PRN PRN Reason: Sleep Pantoprazole Sodium (Protonix) 40 mg PO QDAY ALANNA Exam - Physical Exam Narrative exam: Gen. appearance: Patient lying in bed, no apparent distress HEENT: Normocephalic, atraumatic, pupils equally round and reactive to light, extraocular movement intact, and no sclericterus,. No JVD or thyromegaly or nodule,neck supple, no carotid bruit ,mucous membranes moist, no exudate or erythema Heart: S1, S2, regular rate and rhythm Lungs: Crackles bilaterally, breathing comfortable Abdomen: Positive bowel sounds, nontender, nondistended, no organomegaly Extremity: 1+edema, no cyanosis, clubbing Skin: No rash, nodules, warm, dry Neuro: Oriented 3, cranial nerves II-12 intact, speech is fluent, motor and sensory intact - Constitutional Vitals: Temp Pulse Resp BP Pulse Ox 97.5 F L 94 H 16 109/67 100 04/09/17 03:15 04/09/17 03:15 04/09/17 03:15 04/09/17 03:15 04/09/17 03:15 Results - Labs CBC & Chem 7: 04/10/17 05:01 04/10/17 05:01 Labs: Abnormal lab results 04/08/17 04/08/17 04/08/17 Range/Units 22:38 22:38 22:38 RDW 17.6 H (13.2-15.2) % Lymph % (Auto) 6.0 L (13.4-35.0) % [place] % (Auto) 12.0 H (0.0-7.3) % Eos % (Auto) 5.7 H (0.0-4.3) % Lymph # 0.4 L (1.2-5.4) K/mm3 Seg Neutrophils % 75.0 H (40.0-70.0) % D-Dimer (0-234) ng/mlDDU Sodium 135 L (137-145) mmol/L Chloride 93.7 L (98-107) mmol/L BUN 25 H (7-17) mg/dL Creatinine 1.4 H (0.7-1.2) mg/dL Glucose 201 H (65-100) mg/dL NT-Pro-B Natriuret Pep 31544 H (0-900) pg/mL 04/08/17 Range/Units 22:38 RDW (13.2-15.2) % Lymph % (Auto) (13.4-35.0) % [place] % (Auto) (0.0-7.3) % Eos % (Auto) (0.0-4.3) % Lymph # (1.2-5.4) K/mm3 Seg Neutrophils % (40.0-70.0) % D-Dimer 895.67 H (0-234) ng/mlDDU Sodium (137-145) mmol/L Chloride (98-107) mmol/L BUN (7-17) mg/dL Creatinine (0.7-1.2) mg/dL Glucose (65-100) mg/dL NT-Pro-B Natriuret Pep (0-900) pg/mL - Imaging and Cardiology EKG: image reviewed Chest x-ray: image reviewed CT scan - chest: report reviewed Assessment and Plan Assessment Acute on chronic heart failure, combined dysfunction Hypertension Diabetes type 2 Asthma History of breast cancer Plan Admit to medicine Diuresed with IV Lasix Start beta steven, Miguel Angel, aspirin check cardiac enzymes, echo, consult cardiology Monitor I's and O's, daily weights Check fingersticks and initiate insulin sliding scale Start DVT prophylaxis Consult physical therapy
[2017-04-09 05:46] LABS: Creatine Kinase MB 1.8 ng/mL (0.0-4.0)
[2017-04-09] MEDS ORDERED: MAGNESIUM SULFATE 2GM/50ML 2 GM/50 ML BAG IV ONE ×2 (05:54→06:18)
[2017-04-09] MEDS: LASIX IV SCH ×2 (06:15→18:35)
[2017-04-09] MEDS ORDERED: LASIX ONE (06:18)
[2017-04-09] MEDS: ZESTRIL PO SCH (09:44)
[2017-04-09] MEDS: LOPRESSOR PO SCH ×2 (09:45→21:11)
[2017-04-09] MEDS: LOVENOX SUB-Q SCH (09:46)
[2017-04-09] MEDS: PROTONIX PO SCH (09:46)
[2017-04-09] MEDS ORDERED: CORDARONE PO SCH (10:00)
--- NOTE | 2017-04-09 10:01 | Consultation ---
History of Present Illness Consult date: 04/09/17 Requesting physician: ANAI GARLAND Consult reason: congestive heart failure History of present illness: This is a 71-year-old female with a history of hypertension hyperlipidemia and severe LV dysfunction patient had a long course in her admission back in January which she was status post PEA arrest A which patient is compensated heart failure with renal insufficiency that resolved patient was transferred to LTAC patient was in LTAC for 6 weeks patient was transferred to [facility] further therapy patient for the last 10 days but having shortness of breath with exertion patient breathing has not improves EMS was called brought to the emergency room patient has elevated BNP and some mild renal insufficiency patient denies any syncope or chest pain or palpitations Past History Past Medical History: heart failure (ef 10-15%), hypertension, hyperlipidemia Past Surgical History: Other (osteoarthritis surgery) Social history: no significant social history, Lives alone. denies: smoking, alcohol abuse Family history: no significant family history Medications and Allergies Allergies Allergy/AdvReac Type Severity Reaction Status Date / Time latex Allergy Rash Verified 01/24/17 08:38 morphine Allergy Unknown Verified 04/08/17 21:57 Penicillins Allergy Swelling Verified 01/22/16 12:36 lotions Allergy Unknown Uncoded 04/08/17 21:57 Home Medications Medication Instructions Recorded Confirmed Last Taken Type Furosemide [Lasix TAB] 80 mg PO QDAY 01/15/17 04/08/17 04/08/17 History Amiodarone [Cordarone 200 MG TAB] 200 mg PO BID 04/08/17 04/08/17 Unknown History AtorvaSTATin [Lipitor] 10 mg PO QHS 04/08/17 04/08/17 Unknown History Donepezil [Aricept] 5 mg PO QHS 04/08/17 04/08/17 Unknown History Eszopiclone [Lunesta] 3 mg PO QHS PRN 04/08/17 04/08/17 Unknown History Furosemide [Lasix] 20 mg PO QHS 04/08/17 04/08/17 Unknown History Metoprolol [Lopressor TAB] 50 mg PO BID 04/08/17 04/08/17 Unknown History Pantoprazole [Protonix] 40 mg PO QDAY 04/08/17 04/08/17 Unknown History Active Meds: Active Medications Acetaminophen (Tylenol) 650 mg PO Q4H PRN PRN Reason: Pain MILD(1-3)/Fever >100.5/LIMA Amiodarone HCl (Cordarone) 200 mg PO BID ON LICENSE OF [facility] Last Admin: 04/09/17 09:48 Dose: 200 mg Atorvastatin Calcium (Lipitor) 10 mg PO QHS ON LICENSE OF [facility] Bisacodyl (Dulcolax) 10 mg [place] QDAY PRN PRN Reason: Constipation unrelieved by MOM Donepezil HCl (Aricept) 5 mg PO QHS ON LICENSE OF [facility] Enoxaparin Sodium (Lovenox) 30 mg SUB-Q QDAY ON LICENSE OF [facility] Last Admin: 04/09/17 09:46 Dose: 30 mg Furosemide (Lasix) 40 mg IV BID@0600,1800 ON LICENSE OF [facility] Last Admin: 04/09/17 06:15 Dose: 40 mg Lisinopril (Zestril) 2.5 mg PO QDAY ON LICENSE OF [facility] Last Admin: 04/09/17 09:44 Dose: 2.5 mg Magnesium Hydroxide (Milk Of Magnesia) 30 ml PO Q4H PRN PRN Reason: Constipation Metoprolol Tartrate (Lopressor) 50 mg PO BID ON LICENSE OF [facility] Last Admin: 04/09/17 09:45 Dose: 50 mg Miscellaneous Medication (Eszopiclone [Lunesta]) 3 mg PO QHS PRN PRN Reason: Sleep Ondansetron HCl (Zofran) 4 mg IV Q8H PRN PRN Reason: N/V unrelieved by Reglan Pantoprazole Sodium (Protonix) 40 mg PO QDAY ON LICENSE OF [facility] Last Admin: 04/09/17 09:46 Dose: 40 mg Review of Systems All systems: negative (hpi) Physical Examination Vital Signs Temp Pulse BP Pulse Ox 98.0 F 68 144/82 97 04/08/17 21:57 04/08/17 21:57 04/08/17 21:57 04/08/17 21:57 General appearance: no acute distress HEENT: Positive: PERRL, EOMI Neck: Positive: neck supple Cardiac: Positive: Reg Rate and Rhythm, Audible Murmur Lungs: Positive: Decreased Breath Sounds Neuro: Positive: Grossly Intact Abdomen: Positive: Soft Female genitourinary: deferred Extremities: Present: edema (mild chronic changes) Results 04/08/17 22:38 04/08/17 22:38 Cardiac Enzymes 04/09/17 Range/Units 05:15 CK-MB (CK-2) 1.8 (0.0-4.0) ng/mL - Imaging and Cardiology Echo: report reviewed (01/2017 severe LV dysfunction EF 10-50% with right ventricle dysfunction by ventricle dysfunction number hypertension) Cardiac cath: report reviewed (2004 diffuse disease no focal stenosis with normal LV function) EKG interpretations - Telemetry EKG Rhythm: Sinus Bradycardia (sinus rhythm with first-degree A-V block nonspecific ST-T) Assessment and Plan Acute respiratory failure Acute on chronic biventricular dysfunction Morbid obesity sleep apnea Renal insufficiency Hypertension Pericardial and pleural effusion Severe osteoarthritis nstemi type 2 Recommend echocardiogram for evaluation of pericardial effusion and LV function and IV Lasix decrease amiodarone in view of prolonged first-degree AV block discussed with the patient about the poor prognosis given her multiple medical problems and severe LV dysfunction
--- NOTE | 2017-04-09 10:03 | XRay Report ---
AP CHEST: HISTORY: Shortness of breath Moderate cardiomegaly, moderate pulmonary venous congestion and small bilateral pleural effusions are identified. These findings appear slightly worse when compared to 01/30/17. IMPRESSION: CHF.
[2017-04-09 12:42] LABS: Creatine Kinase MB 1.8 ng/mL (0.0-4.0)
[2017-04-09] MEDS ORDERED: ANTIVERT PO PRN (17:48)
[2017-04-09] MEDS: ARICEPT PO SCH (21:10)
[2017-04-10] MEDS: ANTIVERT PO PRN ×2 (04:00→14:11)
[2017-04-10 05:30] LABS: Basophils % (Auto) 0.3 % (0.0-1.8); Eosinophils % (Auto) 7.8 % (0.0-4.3); Hematocrit 34.2 % (30.3-42.9); Hemoglobin 11.2 gm/dl (10.1-14.3); Mean Corpuscular HGB Conc 33 % (30-34); Mean Corpuscular Hemoglobin 28 pg (28-32); Mean Corpuscular Volume 85 fl (79-97); Platelet Count 169 K/mm3 (140-440); Red Blood Count 4.03 M/mm3 (3.65-5.03); Red Cell Distribution Width 17.7 % (13.2-15.2); White Blood Count 5.8 K/mm3 (4.5-11.0)
[2017-04-10] MEDS: LASIX IV SCH ×2 (05:47→17:26)
[2017-04-10 05:49] LABS: Calcium 9.3 mg/dL (8.4-10.2); Chloride 96.5 mmol/L (98-107); Potassium 4.2 mmol/L (3.6-5.0)
[2017-04-10] MEDS: ZOFRAN IV PRN ×3 (06:11→21:46)
[2017-04-10] MEDS: LOPRESSOR PO SCH ×2 (11:02→21:39)
[2017-04-10] MEDS: CORDARONE PO SCH (11:03)
[2017-04-10] MEDS: ZESTRIL PO SCH (11:03)
[2017-04-10] MEDS: PROTONIX PO SCH (11:03)
[2017-04-10] MEDS: LOVENOX SUB-Q SCH (11:04)
--- NOTE | 2017-04-10 11:15 | Event Note ---
Date: 04/09/17 Patient was seen and examined daughter at bedside case discussed in detail the patient states that she is amendable to hospice if no further treatment plan will be beneficial for her. They will like to have discussion with hospice team for information proportionately at this time and will make decision later. 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 if no improvement may need thoracentesis.
--- NOTE | 2017-04-10 11:16 | Progress Note ---
Assessment and Plan Assessment and plan: Patient is 71-year-old woman with a history of hypertension, diabetes, CHF, breast cancer comes emergency room with complaints of shortness of breath 3 week. She is currently a [facility] of a [facility] and prior to that has had multiple hospital admissions in January had a post PEA arrest with compensated heart failure related insufficiency. Patient subsequently was transferred to a long-term acute care facility and then to [facility] where she was recently discharged. She returns to the hospital with complaint of worsening shortness of breath is diagnosed with Acute respiratory failure secondary to heart failure. She admits to PND, orthopnea increasing lower extremity edema Acute respiratory failure * Continue oxygen via nasal cannula, except improvement with diuresis and if not may need thoracentesis in am * Not on PRISCILLA inhibitor secondary to renal dysfunction. * Chest xray in am Acute on chronic Combined systolic and diastolic congestive heart failure * Echo per cardiology to evaluate pericardial effusion, IV lasix Ist deg Av block * Amidarone decreased in dose. Non obstructive CAD * Continue statin,and BB Hyperlipidemia * Discussed with cardiology patient is intolerant to statins this was discontinued. Morbid obesity * weightloss precluded due to immobility. Obstructive sleep apnea * CPAP at bedside, CKD * stage 3 Hypertension * Continue beta steven decreased to 25 mg twice a day Pericardial and pleural effusion * Consider diuresis, echocardiogram today. Right ear pain * : Include ceruwax trial. Type 2 [place] * Secondary to renal dysfunction. cardiology following. 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 Hospice consult for informational purpose History Interval history: Patient seen and examined, in no acute distress. complains of right ear pain fullness. Hospitalist Physical - Physical exam Narrative exam: VITAL SIGNS: Reviewed. GENERAL: The patient appeared well nourished and normally developed. Vital signs as documented. HEAD: No signs of head trauma. EYES: Pupils are equal. Extraocular motions intact. EARS: Hearing grossly intact. MOUTH: Oropharynx is normal. NECK: No adenopathy, no JVD. CHEST: Chest with diminished breath sounds bilaterally. No wheezes. CARDIAC: Regular rate and rhythm. S1 and S2, without murmurs, gallops, or rubs. VASCULAR: No Edema. Peripheral pulses normal and equal in all extremities. ABDOMEN: Soft, without detectable tenderness. No sign of distention. No rebound or guarding, and no masses palpated. Bowel Sounds normal. MUSCULOSKELETAL: Good range of motion of all major joints. Extremities without clubbing, cyanosis or edema. NEUROLOGIC EXAM: Alert and oriented x 3. No focal sensory or strength deficits. Speech normal. Follows commands. PSYCHIATRIC: Mood normal. SKIN: Chronic changes bilateral lower extremities. - Constitutional Vitals: Temp Pulse Resp BP Pulse Ox 97.5 F L 66 20 140/90 98 04/10/17 03:40 04/10/17 03:40 04/10/17 03:40 04/10/17 03:40 04/10/17 03:40 General appearance: Present: no acute distress Results - Labs CBC & Chem 7: 04/10/17 05:01 04/10/17 05:01 Labs: Laboratory Last Values WBC 5.8 K/mm3 (4.5-11.0) 04/10/17 05:01 RBC 4.03 M/mm3 (3.65-5.03) 04/10/17 05:01 Hgb 11.2 gm/dl (10.1-14.3) 04/10/17 05:01 Hct 34.2 % (30.3-42.9) 04/10/17 05:01 MCV 85 fl (79-97) 04/10/17 05:01 MCH 28 pg (28-32) 04/10/17 05:01 MCHC 33 % (30-34) 04/10/17 05:01 RDW 17.7 % (13.2-15.2) H 04/10/17 05:01 Plt Count 169 K/mm3 (140-440) 04/10/17 05:01 Lymph % (Auto) 8.5 % (13.4-35.0) L 04/10/17 05:01 [place] % (Auto) 15.2 % (0.0-7.3) H 04/10/17 05:01 Eos % (Auto) 7.8 % (0.0-4.3) H 04/10/17 05:01 Baso % (Auto) 0.3 % (0.0-1.8) 04/10/17 05:01 Lymph # 0.5 K/mm3 (1.2-5.4) L 04/10/17 05:01 [place] # 0.9 K/mm3 (0.0-0.8) H 04/10/17 05:01 Eos # 0.4 K/mm3 (0.0-0.4) 04/10/17 05:01 Baso # 0.0 K/mm3 (0.0-0.1) 04/10/17 05:01 Seg Neutrophils % 68.2 % (40.0-70.0) 04/10/17 05:01 Seg Neutrophils # 4.0 K/mm3 (1.8-7.7) 04/10/17 05:01 D-Dimer 895.67 ng/mlDDU (0-234) H 04/08/17 22:38 Sodium 139 mmol/L (137-145) 04/10/17 05:01 Potassium 4.2 mmol/L (3.6-5.0) 04/10/17 05:01 Chloride 96.5 mmol/L (98-107) L 04/10/17 05:01 Carbon Dioxide 31 mmol/L (22-30) H 04/10/17 05:01 Anion Gap 16 mmol/L 04/10/17 05:01 BUN 25 mg/dL (7-17) H 04/10/17 05:01 Creatinine 1.4 mg/dL (0.7-1.2) H 04/10/17 05:01 Estimated GFR 45 ml/min 04/10/17 05:01 BUN/Creatinine Ratio 18 % 04/10/17 05:01 Glucose 137 mg/dL (65-100) H 04/10/17 05:01 POC Glucose 104 (70-105) 04/09/17 09:33 Calcium 9.3 mg/dL (8.4-10.2) 04/10/17 05:01 Total Creatine Kinase 49 units/L (30-135) 04/09/17 11:13 CK-MB (CK-2) 1.8 ng/mL (0.0-4.0) 04/09/17 11:13 CK-MB (CK-2) Rel Index 3.6 (0-4) 04/09/17 11:13 Troponin T 0.015 ng/mL (0.00-0.029) 04/09/17 11:13 NT-Pro-B Natriuret Pep 96461 pg/mL (0-900) H 04/08/17 22:38 - Imaging and Cardiology Chest x-ray: image reviewed (pleural effusion)
--- NOTE | 2017-04-10 12:53 | Progress Note ---
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 shows on amiodarone once a day patient on Lasix 40 twice a day given patient's severe LV dysfunction or prognosis consider hospice therapy discussed this with the patient Subjective Date of service: 04/10/17 Principal diagnosis: chf Interval history: Patient lying in bed his dizziness at times and shortness is the same Objective Vital Signs Temp Pulse Resp Resp Resp BP BP 04/10/17 10:00 18 18 18 04/10/17 03:40 97.5 F L 66 20 140/90 04/09/17 23:29 97.6 F 64 20 129/86 04/09/17 22:00 18 04/09/17 21:11 72 135/69 04/09/17 19:45 70 04/09/17 19:23 97.4 F L 72 20 135/69 04/09/17 16:00 97.5 F L 61 20 126/66 Pulse Ox 04/10/17 10:00 100 04/10/17 03:40 98 04/09/17 23:29 95 04/09/17 22:00 98 04/09/17 21:11 04/09/17 19:45 04/09/17 19:23 91 04/09/17 16:00 99 - Physical Examination General: No Apparent Distress HEENT: Positive: PERRL, EOMI Neck: Positive: neck supple Cardiac: Positive: Reg Rate and Rhythm Lungs: Positive: clear to auscultation Neuro: Positive: Grossly Intact Abdomen: Positive: Soft Extremities: Present: edema (mild chronic changes) - Labs and Meds CBC 04/10/17 Range/Units 05:01 WBC 5.8 (4.5-11.0) K/mm3 RBC 4.03 (3.65-5.03) M/mm3 Hgb 11.2 (10.1-14.3) gm/dl Hct 34.2 (30.3-42.9) % Plt Count 169 (140-440) K/mm3 Lymph # 0.5 L (1.2-5.4) K/mm3 [place] # 0.9 H (0.0-0.8) K/mm3 Eos # 0.4 (0.0-0.4) K/mm3 Baso # 0.0 (0.0-0.1) K/mm3 Comprehensive Metabolic Panel 04/10/17 Range/Units 05:01 Sodium 139 (137-145) mmol/L Potassium 4.2 (3.6-5.0) mmol/L Chloride 96.5 L (98-107) mmol/L Carbon Dioxide 31 H (22-30) mmol/L BUN 25 H (7-17) mg/dL Creatinine 1.4 H (0.7-1.2) mg/dL Glucose 137 H (65-100) mg/dL Calcium 9.3 (8.4-10.2) mg/dL - Imaging and Cardiology EKG: image reviewed Echo: report reviewed (01/2017 severe LV dysfunction EF 10-50% with right ventricle dysfunction by ventricle dysfunction number hypertension) Cardiac cath: report reviewed (2004 diffuse disease no focal stenosis with normal LV function) - Telemetry EKG Rhythm: Sinus Bradycardia
[2017-04-10] MEDS: BIDIL 20/37.5MG PO SCH ×2 (14:10→21:38)
[2017-04-10] MEDS ORDERED: XOPENEX IH PRN (19:04)
[2017-04-10] MEDS ORDERED: ATROVENT IH ONE (19:14)
[2017-04-10] MEDS ORDERED: DUONEB *Not for PRN Use IH SCH (20:00)
[2017-04-10] MEDS: ARICEPT PO SCH ×2 (21:38→22:00)
[2017-04-10] MEDS: XOPENEX IH SCH (22:36)
[2017-04-11] MEDS: XOPENEX IH SCH ×4 (02:01→19:58)
[2017-04-11] MEDS: ANTIVERT PO PRN ×2 (02:21→15:02)
[2017-04-11] MEDS: BIDIL 20/37.5MG PO SCH ×3 (05:51→23:06)
[2017-04-11] MEDS: LASIX IV SCH ×2 (05:51→19:41)
--- NOTE | 2017-04-11 09:01 | XRay Report ---
AP CHEST: HISTORY: Pleural effusion, shortness of breath Cardiomegaly, vascular congestion and small to medium bilateral pleural effusions are unchanged since 04/08/17. No evidence for pneumonia or pneumothorax. IMPRESSION: No significant change in CHF.
[2017-04-11] MEDS: LOPRESSOR PO SCH ×2 (10:43→23:07)
[2017-04-11] MEDS: PROTONIX PO SCH (10:44)
[2017-04-11] MEDS: CORDARONE PO SCH (10:44)
[2017-04-11] MEDS: ZESTRIL PO SCH (10:44)
[2017-04-11] MEDS: LOVENOX SUB-Q SCH (10:45)
[2017-04-11] MEDS: EAR WAX DROPS AU SCH ×2 (10:50→23:07)
--- NOTE | 2017-04-11 11:57 | Progress Note ---
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 Cont present cardiac regimen. Discharge planning per CM. Assessment and plan reviewed with pt and pt's daughter at bedside. The patient has been seen in conjunction with Dr. Del Castillo who agrees with the assessment and plan of care. Subjective Date of service: 04/11/17 Principal diagnosis: chf Interval history: Pt resting in bed, SOB and swelling improving. Daughter at bedside. They state that a hospice primary care sales representative is going to visit them today to discuss options at discharge. Objective Last Vital Signs Temp 98.1 F 04/11/17 04:18 Pulse 56 L 04/11/17 08:29 Resp 18 04/11/17 08:29 BP 112/58 04/11/17 04:18 Pulse Ox 97 04/11/17 08:19 - Physical Examination General: No Apparent Distress HEENT: Positive: PERRL, EOMI Neck: Positive: neck supple Cardiac: Positive: Reg Rate and Rhythm, S1/S2 Lungs: Positive: Decreased Breath Sounds Neuro: Positive: Grossly Intact Abdomen: Positive: Soft Extremities: Present: edema (mild chronic changes) - Imaging and Cardiology EKG: image reviewed Echo: report reviewed (01/2017 severe LV dysfunction EF 10-50% with right ventricle dysfunction by ventricle dysfunction number hypertension) Cardiac cath: report reviewed (2004 diffuse disease no focal stenosis with normal LV function)
[2017-04-11 14:27] LABS: INR 1.29 (0.87-1.13)
--- NOTE | 2017-04-11 16:05 | Ultrasound Report ---
ULTRASOUND THORACENTESIS INDICATION: Left pleural effusion. COMPARISON: None similar. FINDINGS: Ultrasound guided left thoracentesis performed. Written informed consent obtained after explaining the risks and benefits. Patient brought in the ultrasound room. An appropriate skin site marked. Using standard sterile precautions and 1% lidocaine for local anesthesia, 5 [place] Yueh catheter advanced into the pleural fluid. Total of approximately 500 cc of yellow serous fluid obtained with sample sent to the lab. Catheter removed and hemostasis achieved. Patient returned to room. No immediate complications. CONCLUSION: Status post left thoracentesis, as described. A 2 hour post procedure chest x-ray ordered. Dr. Simon present for and performed the entire procedure. Thank you for the opportunity to participate in this patient's care.
--- NOTE | 2017-04-11 16:08 | Procedure Note ---
Date of procedure: 04/11/17 Pre-op diagnosis: Pleural effusion Post-op diagnosis: same Procedure: US guided left thoracentesis Findings: 500 cc yellow serous fluid removed. Anesthesia: local Surgeon: SHANE MYERS Estimated blood loss: none Specimen disposition: to lab Condition: stable Disposition: floor (2 hr post CXR ordered.)
--- NOTE | 2017-04-11 16:42 | Progress Note ---
Assessment and Plan Assessment and plan: Patient is 71-year-old woman with a history of hypertension, diabetes, CHF, breast cancer comes emergency room with complaints of shortness of breath 3 week. She is currently a resident of a senior living and prior to that has had multiple hospital admissions in January had a post PEA arrest with compensated heart failure related insufficiency. Patient subsequently was transferred to a long-term acute care facility and then to [facility] where she was recently discharged. She returns to the hospital with complaint of worsening shortness of breath is diagnosed with Acute respiratory failure secondary to heart failure. She admits to PND, orthopnea increasing lower extremity edema Acute respiratory failure * Continue oxygen via nasal cannula, except improvement with diuresis and if not may need thoracentesis in am * Not on PRISCILLA inhibitor secondary to renal dysfunction. * EF 15-20% * Chest xray in am Acute on chronic Combined systolic and diastolic congestive heart failure * Echo per cardiology to evaluate pericardial effusion, IV lasix Ist deg Av block * Amidarone decreased in dose. Non obstructive CAD * Continue statin,and BB Hyperlipidemia * Discussed with cardiology patient is intolerant to statins this was discontinued. Morbid obesity * weightloss precluded due to immobility. Obstructive sleep apnea * CPAP at bedside, CKD * stage 3 Hypertension * Continue beta steven decreased to 25 mg twice a day Pericardial and pleural effusion * Consider diuresis, Thoracentesis today Right ear pain * : Include ceruwax trial. Type 2 [place] * Secondary to renal dysfunction. cardiology following. 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 Hospice consult for informational purpose History Interval history: Patient seen and examined, in no acute distress. no new complaints Hospitalist Physical - Physical exam Narrative exam: VITAL SIGNS: Reviewed. GENERAL: The patient appeared well nourished and normally developed. Vital signs as documented. HEAD: No signs of head trauma. EYES: Pupils are equal. Extraocular motions intact. EARS: Hearing grossly intact. MOUTH: Oropharynx is normal. NECK: No adenopathy, no JVD. CHEST: Chest with diminished breath sounds bilaterally. No wheezes. CARDIAC: Regular rate and rhythm. S1 and S2, without murmurs, gallops, or rubs. VASCULAR: No Edema. Peripheral pulses normal and equal in all extremities. ABDOMEN: Soft, without detectable tenderness. No sign of distention. No rebound or guarding, and no masses palpated. Bowel Sounds normal. MUSCULOSKELETAL: Good range of motion of all major joints. Extremities without clubbing, cyanosis or edema. NEUROLOGIC EXAM: Alert and oriented x 3. No focal sensory or strength deficits. Speech normal. Follows commands. PSYCHIATRIC: Mood normal. SKIN: Chronic changes bilateral lower extremities. - Constitutional Vitals: Temp Pulse Resp BP Pulse Ox 98.1 F 61 18 112/58 97 04/11/17 04:18 04/11/17 14:06 04/11/17 14:06 04/11/17 04:18 04/11/17 08:19 General appearance: Present: no acute distress Results - Labs CBC & Chem 7: 04/10/17 05:01 04/10/17 05:01 Labs: Laboratory Last Values WBC 5.8 K/mm3 (4.5-11.0) 04/10/17 05:01 RBC 4.03 M/mm3 (3.65-5.03) 04/10/17 05:01 Hgb 11.2 gm/dl (10.1-14.3) 04/10/17 05:01 Hct 34.2 % (30.3-42.9) 04/10/17 05:01 MCV 85 fl (79-97) 04/10/17 05:01 MCH 28 pg (28-32) 04/10/17 05:01 MCHC 33 % (30-34) 04/10/17 05:01 RDW 17.7 % (13.2-15.2) H 04/10/17 05:01 Plt Count 169 K/mm3 (140-440) 04/10/17 05:01 Lymph % (Auto) 8.5 % (13.4-35.0) L 04/10/17 05:01 [place] % (Auto) 15.2 % (0.0-7.3) H 04/10/17 05:01 Eos % (Auto) 7.8 % (0.0-4.3) H 04/10/17 05:01 Baso % (Auto) 0.3 % (0.0-1.8) 04/10/17 05:01 Lymph # 0.5 K/mm3 (1.2-5.4) L 04/10/17 05:01 [place] # 0.9 K/mm3 (0.0-0.8) H 04/10/17 05:01 Eos # 0.4 K/mm3 (0.0-0.4) 04/10/17 05:01 Baso # 0.0 K/mm3 (0.0-0.1) 04/10/17 05:01 Seg Neutrophils % 68.2 % (40.0-70.0) 04/10/17 05:01 Seg Neutrophils # 4.0 K/mm3 (1.8-7.7) 04/10/17 05:01 PT 16.7 Sec. (12.2-14.9) H 04/11/17 13:24 INR 1.29 (0.87-1.13) H 04/11/17 13:24 D-Dimer 895.67 ng/mlDDU (0-234) H 04/08/17 22:38 Sodium 139 mmol/L (137-145) 04/10/17 05:01 Potassium 4.2 mmol/L (3.6-5.0) 04/10/17 05:01 Chloride 96.5 mmol/L (98-107) L 04/10/17 05:01 Carbon Dioxide 31 mmol/L (22-30) H 04/10/17 05:01 Anion Gap 16 mmol/L 04/10/17 05:01 BUN 25 mg/dL (7-17) H 04/10/17 05:01 Creatinine 1.4 mg/dL (0.7-1.2) H 04/10/17 05:01 Estimated GFR 45 ml/min 04/10/17 05:01 BUN/Creatinine Ratio 18 % 04/10/17 05:01 Glucose 137 mg/dL (65-100) H 04/10/17 05:01 POC Glucose 154 (70-105) H 04/11/17 02:27 Calcium 9.3 mg/dL (8.4-10.2) 04/10/17 05:01 Total Creatine Kinase 49 units/L (30-135) 04/09/17 11:13 CK-MB (CK-2) 1.8 ng/mL (0.0-4.0) 04/09/17 11:13 CK-MB (CK-2) Rel Index 3.6 (0-4) 04/09/17 11:13 Troponin T 0.015 ng/mL (0.00-0.029) 04/09/17 11:13 NT-Pro-B Natriuret Pep 77676 pg/mL (0-900) H 04/08/17 22:38
[2017-04-11] MEDS ORDERED: PERCOCET 5/325 PO PRN (17:49)
[2017-04-11] MEDS: TYLENOL PO PRN (19:41)
--- NOTE | 2017-04-11 19:55 | XRay Report ---
FINAL REPORT EXAM: XR CHEST 1V AP HISTORY: Post left thoracentesis TECHNIQUE: A one view semi erect AP portable chest x-ray was performed. Comparison: 04/11/2017 earlier same day, 04/09/2017, 01/29/2017 FINDINGS: There has been recent left thoracentesis. Again identified is significant cardiomegaly, significant pulmonary vascular congestion. Cannot assess pleural effusions in the semi erect position. No definite pneumothorax is identified. There is no deep sulcus sign or evidence for definite pleural reflection. IMPRESSION: Persistent significant congestive heart failure changes appear to be more redistributed to the apices on the current exam. Status post left thoracentesis without definite pneumothorax. Specifically, there is no deep sulcus sign or pleural reflection of pneumothorax. The exam is performed semierect portably. Expiratory chest x-ray increases the sensitivity in evaluating for pneumothorax.
[2017-04-11 20:05] LABS: Basophils Body Fluid 0 %; Eosinophils Body Fluid 0 %; Reactive Lymph Body Fluid 0 %
[2017-04-11 20:09] LABS: pH, Body Fluid 7.504
[2017-04-11] MEDS: ARICEPT PO SCH (23:11)
[2017-04-12] MEDS: XOPENEX IH SCH ×4 (02:03→21:04)
[2017-04-12] MEDS: BIDIL 20/37.5MG PO SCH ×3 (06:23→21:18)
[2017-04-12] MEDS: LASIX IV SCH (06:23)
[2017-04-12 06:28] LABS: Calcium 8.8 mg/dL (8.4-10.2); Chloride 90.9 mmol/L (98-107); Potassium 4.2 mmol/L (3.6-5.0)
[2017-04-12] MEDS ORDERED: LOVENOX SUB-Q SCH (10:00)
[2017-04-12] MEDS: LOPRESSOR PO SCH ×2 (10:00→21:17)
[2017-04-12] MEDS: ZESTRIL PO SCH (10:52)
[2017-04-12] MEDS: EAR WAX DROPS AU SCH ×2 (10:54→21:19)
[2017-04-12] MEDS: PROTONIX PO SCH (10:54)
[2017-04-12] MEDS: CORDARONE PO SCH (10:54)
--- NOTE | 2017-04-12 11:07 | Progress Note ---
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 Consider conversion of IV diuresis to PO in AM. Discharge planning per CM. Assessment and plan reviewed with pt at bedside. The patient has been seen in conjunction with Dr. Del Castillo who agrees with the assessment and plan of care. Subjective Date of service: 04/12/17 Principal diagnosis: chf Interval history: Pt resting in bed, states she is feeling much better today. Discharge planning still in process per CM. Objective Last Vital Signs Temp 98.3 F 04/12/17 08:46 Pulse 63 04/12/17 10:52 Resp 24 04/12/17 08:46 BP 124/61 04/12/17 10:52 Pulse Ox 97 04/12/17 08:46 - Physical Examination General: No Apparent Distress HEENT: Positive: PERRL, EOMI Neck: Positive: neck supple Cardiac: Positive: Reg Rate and Rhythm, S1/S2 Lungs: Positive: clear to auscultation Neuro: Positive: Grossly Intact Abdomen: Positive: Soft Extremities: Present: edema (mild chronic changes) - Labs and Meds Coagulation 04/11/17 Range/Units 13:24 PT 16.7 H (12.2-14.9) Sec. INR 1.29 H (0.87-1.13) Comprehensive Metabolic Panel 04/12/17 Range/Units 05:20 Sodium 133 L (137-145) mmol/L Potassium 4.2 (3.6-5.0) mmol/L Chloride 90.9 L (98-107) mmol/L Carbon Dioxide 29 (22-30) mmol/L BUN 31 H (7-17) mg/dL Creatinine 2.5 H D (0.7-1.2) mg/dL Glucose 116 H (65-100) mg/dL Calcium 8.8 (8.4-10.2) mg/dL - Imaging and Cardiology EKG: image reviewed Echo: report reviewed (01/2017 severe LV dysfunction EF 10-50% with right ventricle dysfunction by ventricle dysfunction number hypertension) Cardiac cath: report reviewed (2004 diffuse disease no focal stenosis with normal LV function)
--- NOTE | 2017-04-12 11:08 | Progress Note ---
Assessment and Plan Assessment and plan: Patient is 71-year-old woman with a history of hypertension, diabetes, CHF, breast cancer comes emergency room with complaints of shortness of breath 3 week. She is currently a resident of a long term and prior to that has had multiple hospital admissions in January had a post PEA arrest with compensated heart failure related insufficiency. Patient subsequently was transferred to a long-term acute care facility and then to [facility] where she was recently discharged. She returns to the hospital with complaint of worsening shortness of breath is diagnosed with Acute respiratory failure secondary to heart failure. She admits to PND, orthopnea increasing lower extremity edema Acute respiratory failure * Continue oxygen via nasal cannula, * Improved post thoracentesis * Not on PRISCILLA inhibitor secondary to renal dysfunction. * EF 15-20%, Chest xray in am Acute on chronic Combined systolic and diastolic congestive heart failure * Echo per cardiology to evaluate pericardial effusion, IV lasix Ist deg Av block * Amidarone decreased in dose. Non obstructive CAD * Continue statin,and BB Hyperlipidemia * Discussed with cardiology patient is intolerant to statins this was discontinued. Morbid obesity * Weightloss precluded due to immobility. Obstructive sleep apnea * CPAP at bedside, Acute on CKD * stage 3 Hypertension * Continue beta steven decreased to 25 mg twice a day Pericardial and pleural effusion * hold lasix * S/O Thoracentsis Right ear pain * Include ceruwax trial. Type 2 [place] * Secondary to renal dysfunction. cardiology following. 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 Hospice consult for informational purpose Discuss with case management and also with the patients PCP with [facility]. Patient will benefit from Hospice. But the PCP may want to try instriol Can be discharged in am History Interval history: Patient seen and examined, in no acute distress. no new complaints Hospitalist Physical - Physical exam Narrative exam: VITAL SIGNS: Reviewed. GENERAL: The patient appeared well nourished and normally developed. Vital signs as documented. HEAD: No signs of head trauma. EYES: Pupils are equal. Extraocular motions intact. EARS: Hearing grossly intact. MOUTH: Oropharynx is normal. NECK: No adenopathy, no JVD. CHEST: Chest with diminished breath sounds bilaterally. No wheezes. CARDIAC: Regular rate and rhythm. S1 and S2, without murmurs, gallops, or rubs. VASCULAR: No Edema. Peripheral pulses normal and equal in all extremities. ABDOMEN: Soft, without detectable tenderness. No sign of distention. No rebound or guarding, and no masses palpated. Bowel Sounds normal. MUSCULOSKELETAL: Good range of motion of all major joints. Extremities without clubbing, cyanosis or edema. NEUROLOGIC EXAM: Alert and oriented x 3. No focal sensory or strength deficits. Speech normal. Follows commands. PSYCHIATRIC: Mood normal. SKIN: Chronic changes bilateral lower extremities. - Constitutional Vitals: Temp Pulse Resp BP Pulse Ox 98.3 F 63 24 124/61 97 04/12/17 08:46 04/12/17 10:52 04/12/17 08:46 04/12/17 10:52 04/12/17 08:46 General appearance: Present: no acute distress Results - Labs CBC & Chem 7: 04/10/17 05:01 04/12/17 05:20 Labs: Laboratory Last Values WBC 5.8 K/mm3 (4.5-11.0) 04/10/17 05:01 RBC 4.03 M/mm3 (3.65-5.03) 04/10/17 05:01 Hgb 11.2 gm/dl (10.1-14.3) 04/10/17 05:01 Hct 34.2 % (30.3-42.9) 04/10/17 05:01 MCV 85 fl (79-97) 04/10/17 05:01 MCH 28 pg (28-32) 04/10/17 05:01 MCHC 33 % (30-34) 04/10/17 05:01 RDW 17.7 % (13.2-15.2) H 04/10/17 05:01 Plt Count 169 K/mm3 (140-440) 04/10/17 05:01 Lymph % (Auto) 8.5 % (13.4-35.0) L 04/10/17 05:01 [place] % (Auto) 15.2 % (0.0-7.3) H 04/10/17 05:01 Eos % (Auto) 7.8 % (0.0-4.3) H 04/10/17 05:01 Baso % (Auto) 0.3 % (0.0-1.8) 04/10/17 05:01 Lymph # 0.5 K/mm3 (1.2-5.4) L 04/10/17 05:01 [place] # 0.9 K/mm3 (0.0-0.8) H 04/10/17 05:01 Eos # 0.4 K/mm3 (0.0-0.4) 04/10/17 05:01 Baso # 0.0 K/mm3 (0.0-0.1) 04/10/17 05:01 Seg Neutrophils % 68.2 % (40.0-70.0) 04/10/17 05:01 Seg Neutrophils # 4.0 K/mm3 (1.8-7.7) 04/10/17 05:01 PT 16.7 Sec. (12.2-14.9) H 04/11/17 13:24 INR 1.29 (0.87-1.13) H 04/11/17 13:24 D-Dimer 895.67 ng/mlDDU (0-234) H 04/08/17 22:38 Sodium 133 mmol/L (137-145) L 04/12/17 05:20 Potassium 4.2 mmol/L (3.6-5.0) 04/12/17 05:20 Chloride 90.9 mmol/L (98-107) L 04/12/17 05:20 Carbon Dioxide 29 mmol/L (22-30) 04/12/17 05:20 Anion Gap 17 mmol/L 04/12/17 05:20 BUN 31 mg/dL (7-17) H 04/12/17 05:20 Creatinine 2.5 mg/dL (0.7-1.2) H D 04/12/17 05:20 Estimated GFR 23 ml/min 04/12/17 05:20 BUN/Creatinine Ratio 12 % 04/12/17 05:20 Glucose 116 mg/dL (65-100) H 04/12/17 05:20 POC Glucose 154 (70-105) H 04/11/17 02:27 Calcium 8.8 mg/dL (8.4-10.2) 04/12/17 05:20 Total Creatine Kinase 49 units/L (30-135) 04/09/17 11:13 CK-MB (CK-2) 1.8 ng/mL (0.0-4.0) 04/09/17 11:13 CK-MB (CK-2) Rel Index 3.6 (0-4) 04/09/17 11:13 Troponin T 0.015 ng/mL (0.00-0.029) 04/09/17 11:13 NT-Pro-B Natriuret Pep 49202 pg/mL (0-900) H 04/08/17 22:38 Fluid Type Pleural 04/11/17 15:30 Fluid Color Straw 04/11/17 15:30 Fluid Appearance Clear 04/11/17 15:30 Fluid pH 7.504 04/11/17 15:30 Fluid WBC 13 /mm3 04/11/17 15:30 Fluid RBC 828 /mm3 04/11/17 15:30 Fluid Seg Neutrophils 8.0 % 04/11/17 15:30 Fluid Lymphocytes 81.0 % 04/11/17 15:30 Fluid Reactive Lymphs 0 % 04/11/17 15:30 Fluid Monocytes 11.0 % 04/11/17 15:30 Fluid Eosinophils 0 % 04/11/17 15:30 Fluid Basophils 0 % 04/11/17 15:30
[2017-04-12] MEDS: ZOFRAN IV PRN (14:05)
[2017-04-12] MEDS: ARICEPT PO SCH ×2 (21:18→21:22)
[2017-04-13] MEDS: XOPENEX IH SCH ×4 (02:33→15:38)
[2017-04-13 04:44] VITALS: BP 104/50
[2017-04-13] MEDS: BIDIL 20/37.5MG PO SCH ×2 (05:53→14:09)
[2017-04-13] MEDS ORDERED: LASIX PO SCH (06:00)
[2017-04-13] MEDS: TYLENOL PO PRN ×2 (09:26→18:38)
[2017-04-13] MEDS: LOPRESSOR PO SCH (09:27)
[2017-04-13] MEDS: PROTONIX PO SCH (09:29)
[2017-04-13] MEDS: CORDARONE PO SCH (09:29)
[2017-04-13] MEDS: EAR WAX DROPS AU SCH (09:31)
[2017-04-13] MEDS ORDERED: LOVENOX SUB-Q SCH (10:00)
--- NOTE | 2017-04-13 11:17 | Progress Note ---
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 Discharge planning per CM. Currently stable cardiac status. Pt may discharge from cardiology standpoint. Recommend follow up in our office with Rafia Blankenship NP, within 3-5 business days of hospital discharge ([phone]). Assessment and plan reviewed with pt at bedside. The patient has been seen in conjunction with Dr. Del Castillo who agrees with the assessment and plan of care. Subjective Date of service: 04/13/17 Principal diagnosis: chf Interval history: Pt resting in bed, states she is feeling much better today. Discharge planning still in process per CM. Objective Last Vital Signs Temp 98.1 F 04/13/17 09:24 Pulse 96 H 04/13/17 10:30 Resp 16 04/13/17 10:30 BP 104/50 04/13/17 09:27 Pulse Ox 96 04/13/17 10:00 - Physical Examination General: No Apparent Distress HEENT: Positive: PERRL, EOMI Neck: Positive: neck supple Cardiac: Positive: Reg Rate and Rhythm, S1/S2 Lungs: Positive: Decreased Breath Sounds Neuro: Positive: Grossly Intact Abdomen: Positive: Soft Extremities: Present: edema (mild chronic changes) - Labs and Meds Comprehensive Metabolic Panel 04/12/17 Range/Units 20:50 BUN 33 H (7-17) mg/dL Creatinine 2.6 H (0.7-1.2) mg/dL - Imaging and Cardiology EKG: image reviewed Echo: report reviewed (01/2017 severe LV dysfunction EF 10-50% with right ventricle dysfunction by ventricle dysfunction number hypertension) Cardiac cath: report reviewed (2004 diffuse disease no focal stenosis with normal LV function)
--- NOTE | 2017-04-13 14:51 | Discharge Summary ---
Providers - Providers Date of Admission: 04/09/17 05:10 Date of discharge: 04/13/17 Attending physician: VITO MATOS 04/11/17 11:12 Physical Therapy Evaluation and Treat [CONS] Routine Comment: SKILL LEVEL FOR SNF Reason For Exam: DISCHARGE DISPOSITION 04/11/17 11:22 Occupational Therapy Evaluate and Treat [CONS] Routine Comment: skill level for SNF Reason For Exam: eval & treat 04/12/17 11:17 Consult to Case Management [CONS] Routine Services Needed at Discharge: Other Notified:: SARAH If yes, spoke with:: SARAH Comment:: HOSPICE Additional Physician Instructions: EVAL AND TREAT Primary care physician: MANAGER THERAPY Hospitalization Condition: Stable Hospital course: See Discharge summary in reports-dictated Disposition: TO HOME OR SELFCARE Core Measure Documentation - Palliative Care Palliative Care/ Comfort Measures: Not Applicable - Core Measures Any of the following diagnoses?: none Exam - Constitutional Vitals: Temp Pulse Resp BP Pulse Ox 98.1 F 96 H 16 104/50 96 04/13/17 09:24 04/13/17 10:30 04/13/17 10:30 04/13/17 09:27 04/13/17 10:00 General appearance: Present: no acute distress, well-nourished - EENT Eyes: Present: PERRL ENT: hearing intact, clear oral mucosa - Neck Neck: Present: supple, normal ROM - Respiratory Respiratory effort: normal Respiratory: bilateral: CTA - Cardiovascular Heart Sounds: Present: S1 & S2. Absent: rub, click - Extremities Extremities: pulses symmetrical, No edema Peripheral Pulses: within normal limits - Abdominal General gastrointestinal: Present: soft, non-tender, non-distended, normal bowel sounds Female genitourinary: Present: normal - Integumentary Integumentary: Present: clear, warm, dry - Musculoskeletal Musculoskeletal: gait normal, strength equal bilaterally - Psychiatric Psychiatric: appropriate mood/affect, intact judgment & insight - Neurologic Neurologic: CNII-XII intact, moves all extremities Plan Weight Bearing Status: Weight Bear as Tolerated Diet: low fat, low cholesterol Follow up with: PRIMARY CARE, [Primary Care Provider] - 3-5 Days
--- NOTE | 2017-04-14 06:31 | Discharge Summary ---
HISTORY: The patient was admitted for increasing shortness of breath of 3 weeks' duration. ADMITTING DIAGNOSES: Acute congestive heart failure, acute respiratory failure, congestive heart failure exacerbation, first degree AV block, nonobstructive coronary artery disease, hyperlipidemia, morbid obesity, obstructive sleep apnea, chronic kidney disease stage 3, hypertension, pericardial and pleural effusion, right ear pain, type 2 diabetes. HOSPITAL COURSE: The patient had multiple tests. Echocardiogram was done, which showed ejection fraction of 15% to 20%, left ventricular chamber is mildly dilated, severe global hypokinesis of the left ventricle. The patient also had a chest CTA. CT angiogram showed fractures of the right ribs #4 to 7, no pulmonary embolism. The patient did well and stable in spite of her ejection fraction of 15%. This patient is to be discharged on 04/13/2017. DISCHARGE DIAGNOSES: 1. Congestive heart failure exacerbation, which is resolved, ejection fraction of 15%. 2. Hypertension. Continue metoprolol. Ventricular arrhythmias, continue amiodarone. 3. Congestive heart failure. Continue Lasix 80 mg daily. 4. Gastroesophageal reflux disease. Continue pantoprazole 40 mg daily. 5. Hyperlipidemia. Continue atorvastatin 10 mg p.o. daily. 6. Discharged to hospice. Discharge diagnoses as mentioned. Congestive heart failure exacerbation with severe heart failure, 15% ejection fraction, arrhythmias, hyperlipidemia, dementia, insomnia and gastroesophageal reflux disease. Follow with Cardiology in 1 week. JOB# [id number] BETO/ESTRELLA
[2017-04-14 23:22] LABS: LDH,Body Fluid 83
== END 2017-04-13 19:25 | disposition home or self-care (01) | DRG 280 ==
LOC: ED 21:38 → 4A 04-09 05:10
PROVIDERS: ADMIT Internal Medicine; ATTEND Internal Medicine
PROC: 0W9B3ZZ Drainage of Left Pleural Cavity, Percutaneous Approach (ICD-10-PCS; principal; 2017-04-11)
DX: I21.A1 Myocardial infarction type 2 (principal); I50.43 Acute on chronic combined systolic (congestive) and diastolic (congestive) heart failure; J96.00 Acute respiratory failure, unspecified whether with hypoxia or hypercapnia; I13.0 Hypertensive heart and chronic kidney disease with heart failure and stage 1 through stage 4 chronic kidney disease, or unspecified chronic kidney disease; J90 Pleural effusion, not elsewhere classified; Z68.42 Body mass index [BMI] 45.0-49.9, adult; N17.9 Acute kidney failure, unspecified; I42.9 Cardiomyopathy, unspecified; N18.3 Chronic kidney disease, stage 3 (moderate); Z88.0 Allergy status to penicillin; I44.0 Atrioventricular block, first degree; E11.22 Type 2 diabetes mellitus with diabetic chronic kidney disease; Z88.8 Allergy status to other drugs, medicaments and biological substances; Z86.711 Personal history of pulmonary embolism; I25.10 Atherosclerotic heart disease of native coronary artery without angina pectoris; K21.9 Gastro-esophageal reflux disease without esophagitis; Z85.3 Personal history of malignant neoplasm of breast; Z82.49 Family history of ischemic heart disease and other diseases of the circulatory system; E78.5 Hyperlipidemia, unspecified; E66.01 Morbid (severe) obesity due to excess calories; M19.90 Unspecified osteoarthritis, unspecified site; G47.33 Obstructive sleep apnea (adult) (pediatric); H92.01 Otalgia, right ear; I27.20 Pulmonary hypertension, unspecified
CPT/HCPCS: 32555; 36415; 71010; 71275; 80048; 82550; 82553; 82565; 82962; 83605; 83880; 84160; 84484; 84520; 85025; 85379; 85610; 87116; 88112; 88305; 89051; 93005; 93010; 93306; 94640; 94760; 96374; 96375; A9270-GY; G8978-GP; G8979-GP; J1650; J1940; J2405; J3475; Q9967